=== PATIENT | female | born 1965 | race Caucasian/White ===

== ENCOUNTER 2016-04-15 | Emergency (ER) | payer MEDICAID | END 2016-04-15 13:30 | disposition left against medical advice (07) | DX: Z53.21 Procedure and treatment not carried out due to patient leaving prior to being seen by health care provider (principal) ==

== ENCOUNTER 2016-04-18 | Emergency (ER) | payer MEDICAID | END 2016-04-18 21:40 | disposition home or self-care (01) | CPT/HCPCS: 30901; 30905; 99282; 99283; A9270 ==

== ENCOUNTER 2016-04-18 14:44 | Emergency (ER) | payer MEDICAID ==
[2016-04-18] MEDS ORDERED: OXYMETAZOLINE NASAL SPRAY NAS ONE (14:54)
== END 2016-04-18 16:21 | disposition home or self-care (01) ==
DX: R04.0 Epistaxis (principal); I10 Essential (primary) hypertension; J98.8 Other specified respiratory disorders; J44.9 Chronic obstructive pulmonary disease, unspecified; F17.200 Nicotine dependence, unspecified, uncomplicated

== ENCOUNTER 2016-04-20 09:31 | Emergency (ER) | payer MEDICAID ==
[2016-04-20] MEDS ORDERED: OXYMETAZOLINE NASAL SPRAY NAS STA (10:21)
[2016-04-20] MEDS ORDERED: OXYMETAZOLINE NASAL SPRAY NAS ONE (10:22)
== END 2016-04-20 10:41 | disposition home or self-care (01) ==
DX: R04.0 Epistaxis (principal); I10 Essential (primary) hypertension; J44.9 Chronic obstructive pulmonary disease, unspecified; F17.200 Nicotine dependence, unspecified, uncomplicated
CPT/HCPCS: 99282; 99283; A9270

== ENCOUNTER 2019-10-08 17:08 | Outpatient (CLI) | payer MEDICAID | END 2019-10-08 17:09 | disposition short-term general hospital (02) | LOC: EMS 17:08 | PROVIDERS: ATTEND Surgery | DX: M54.9 Dorsalgia, unspecified (principal); R07.9 Chest pain, unspecified | CPT/HCPCS: A0425; A0427 ==

== ENCOUNTER 2021-04-12 01:30 | Outpatient (CLI) | payer MEDICAID | END 2021-04-12 01:31 | disposition EMS.NT | LOC: EMS 01:30 | DX: R11.10 Vomiting, unspecified (principal); S80.861A Insect bite (nonvenomous), right lower leg, initial encounter; W57.XXXA Bitten or stung by nonvenomous insect and other nonvenomous arthropods, initial encounter ==

== ENCOUNTER 2022-01-21 13:47 | Outpatient (CLI) | payer MEDICAID | END 2022-01-21 23:59 | disposition short-term general hospital (02) | LOC: EMS 13:47 | DX: R11.10 Vomiting, unspecified (principal); R19.5 Other fecal abnormalities; R10.817 Generalized abdominal tenderness; R00.0 Tachycardia, unspecified | CPT/HCPCS: A0425; A0427; A0999 ==

== ENCOUNTER 2022-02-07 16:32 | Outpatient (CLI) | payer MEDICAID | END 2022-02-07 23:59 | disposition critical access hospital (66) | LOC: EMS 16:32 | DX: R06.02 Shortness of breath (principal); R09.02 Hypoxemia; I48.91 Unspecified atrial fibrillation | CPT/HCPCS: A0425; A0427; A0999 ==

== ENCOUNTER 2022-02-07 17:03 | Inpatient (IN) | payer MEDICAID ==
--- OUTSIDE RECORDS SUMMARY | 2022-02-07 17:17 | EXTERNAL MEDICAL SUMMARY RPT | Continuity of Care Document ---
:1965 Author Organization [facility] Address [address] [place] [address] Phone Care Team Providers Name Role Phone hCung Mcdonald Unavailable Unavailable Allergies and Intolerances date description facility type (no date) grass pollen [facility] (unknown) (no date) [facility]ender [facility]andula angustifolia[facility] (no date) mometasone furoate [facility] (unknown) Encounters No information. Functional Status No information. Immunizations No information. Medications date description facility [id number] Albuterol Sulfate [facility] Problems No information. Procedures No information. Results/Labs test date author facility value unit interpret ation Result panel 1 (unknown) (no (unknown) (unknown) (no value) (units (unk nown) date) unknown) (unknown) (no (unknown) (unknown) 01/02/22 (units (unkno wn) date) unknown) (unknown) (no (unknown) (unknown) [id number] (units (unkno wn) date) unknown) (unknown) (no (unknown) (unknown) 56 yo female (units (u nknown) date) presents today unknown) c/o bladder issues. Patient states that when she (unknown) (no (unknown) (unknown) Abdominal pain (units (unknown) date) unknown) (unknown) (no (unknown) (unknown) Age/Sex: 56 / F (units (unknown) date) Date of Service: unknown) (unknown) (no (unknown) (unknown) Allergic (units (unkno wn) date) dermatitis of unknown) eyelids of both eyes (unknown) (no (unknown) (unknown) Allergies (units (unkn own) date) unknown) (unknown) (no (unknown) (unknown) [place], [place] (units ( unknown) date) [id number] unknown) (unknown) (no (unknown) (unknown) Arthritis (units (unkn own) date) (Unknown) unknown) (unknown) (no (unknown) (unknown) Asthma (Unknown) (units (unknown) date) unknown) (unknown) (no (unknown) (unknown) Asthma (units (unkno wn) date) unknown) (unknown) (no (unknown) (unknown) Attending Dr: (units ( unknown) date) Chung Mcdonald unknown) D.O. (unknown) (no (unknown) (unknown) COPD (chronic (units ( unknown) date) obstructive unknown) pulmonary disease) (unknown) (no (unknown) (unknown) Carpal tunnel (units ( unknown) date) syndrome (-2017) unknown) (unknown) (no (unknown) (unknown) [facility] (units ( unknown) date) (chronic) unknown) (unknown) (no (unknown) (unknown) : 1965 (units (unknown) date) Acct:[id number] unknown) (unknown) (no (unknown) (unknown) Dept at (units (unkno wn) date) . unknown) (unknown) (no (unknown) (unknown) Documented By: (units (unknown) date) Chung Mcdonald unknown) D.O. 01/02/22 1322 (unknown) (no (unknown) (unknown) Draft (units (unkno wn) date) unknown) (unknown) (no (unknown) (unknown) Eczema (units (unkno wn) date) unknown) (unknown) (no (unknown) (unknown) Family History (units (unknown) date) (Reviewed unknown) 11/15/20 @ 11:14 by Fernando Steve DO) (unknown) (no (unknown) (unknown) Family Practice (units (unknown) date) Office Visit unknown) (unknown) (no (unknown) (unknown) [facility] ([facility] unknown) (unknown) (no (unknown) (unknown) History of (units (unk nown) date) hysterectomy for unknown) cancer (unknown) (no (unknown) (unknown) Impetigo (units (unkno wn) date) unknown) (unknown) (no (unknown) (unknown) Intake Note: (units (u nknown) date) unknown) (unknown) (no (unknown) (unknown) Intake performed (units (unknown) date) by: Christa Castaneda unknown) L (unknown) (no (unknown) (unknown) Intake (units (unkno wn) date) unknown) (unknown) (no (unknown) (unknown) Intake- Clincial (units (unknown) date) Staff unknown) (unknown) (no (unknown) (unknown) Last Menstural (units (unknown) date) Cycle + Details unknown) (unknown) (no (unknown) (unknown) Loc: [facility] (units (unkno wn) date) unknown) (unknown) (no (unknown) (unknown) Medical History (units (unknown) date) (Updated 06/09/21 unknown) @ 00:01 by ) (unknown) (no (unknown) (unknown) Morbid obesity (units (unknown) date) due to excess unknown) calories (unknown) (no (unknown) (unknown) Mother (units (unknown) date) CVA (cerebral unknown) vascular accident) (unknown) (no (unknown) (unknown) Other Menstrual (units (unknown) date) Period: unknown) Postmenopausal (unknown) (no (unknown) (unknown) PFSH (units (unkno wn) date) unknown) (unknown) (no (unknown) (unknown) Patient: (units (unkno wn) date) Rosalba Pabon unknown) MR#: [id number] (unknown) (no (unknown) (unknown) Pulmonary (units (unkn own) date) hypertension unknown) (unknown) (no (unknown) (unknown) Reason For Visit (units (unknown) date) unknown) (unknown) (no (unknown) (unknown) Right-sided low (units (unknown) date) back pain with unknown) sciatica (unknown) (no (unknown) (unknown) Signed By: (units (unk nown) date) unknown) (unknown) (no (unknown) (unknown) Smoking Status: (units (unknown) date) Current every day unknown) smoker (unknown) (no (unknown) (unknown) Staph skin (units (unk nown) date) infection unknown) (unknown) (no (unknown) (unknown) Surgical History (units (unknown) date) (Reviewed unknown) 11/15/20 @ 11:14 by Fernando Steve DO) (unknown) (no (unknown) (unknown) Tachycardia (units (un known) date) unknown) (unknown) (no (unknown) (unknown) This note may (units ( unknown) date) have been all or unknown) partially generated using voice recognition (unknown) (no (unknown) (unknown) Tobacco + (units (unkn own) date) Substance Use unknown) (unknown) (no (unknown) (unknown) Tobacco Status (units (unknown) date) unknown) (unknown) (no (unknown) (unknown) Visit Reasons: (units (unknown) date) discuss bladder unknown) issues 09 (unknown) (no (unknown) (unknown) alcohol intake: (units (unknown) date) current unknown) (unknown) (no (unknown) (unknown) grass pollen (units (u nknown) date) Allergy (Verified unknown) 03/03/21 10:50) (unknown) (no (unknown) (unknown) have occurred. (units (unknown) date) If there are any unknown) questions, please contact the Medical Records (unknown) (no (unknown) (unknown) lavender (units (unkno wn) date) (Lavandula unknown) angustifolia) Allergy (Verified 03/03/21 10:50) (unknown) (no (unknown) (unknown) may occur. (units (unk nown) date) Occasional unknown) wrong-word or 'sound-alike' substitutions may have (unknown) (no (unknown) (unknown) mometasone (units (unk nown) date) furoate [From unknown) NASONEX] Allergy (Unknown, Verified 03/03/21 10:50) (unknown) (no (unknown) (unknown) needs to urine (units (unknown) date) it is immediate. unknown) Also patient c/o restless leg syndrome that (unknown) (no (unknown) (unknown) occurred due to (units (unknown) date) the inherent unknown) limitations of voice recognition software. Please (unknown) (no (unknown) (unknown) pine tanya Allergy (units (unknown) date) (Severe, Uncoded unknown) 03/03/21 10:50) (unknown) (no (unknown) (unknown) read the note (units ( unknown) date) carefully and unknown) recognize, using context, where these substitutions (unknown) (no (unknown) (unknown) severe sinus (units (u nknown) date) congestion unknown) (unknown) (no (unknown) (unknown) sinus swelling, (units (unknown) date) trouble breathing unknown) (unknown) (no (unknown) (unknown) software. 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 unknown) (unknown) (no (unknown) (unknown) throat closes, (units (unknown) date) cannot breathe unknown) Result panel 2 (unknown) (no (unknown) (unknown) (no value) (units (unk nown) date) unknown) (unknown) (no (unknown) (unknown) #20 tabs 05/25/21 (units (unknown) date) [Rx Confirmed unknown) 01/02/22] (unknown) (no (unknown) (unknown) (1) Anemia: (units (un known) date) unknown) (unknown) (no (unknown) (unknown) (2) COPD (chronic (units (unknown) date) obstructive unknown) pulmonary disease): (unknown) (no (unknown) (unknown) (3) HTN (units (unkno wn) date) (hypertension): unknown) (unknown) (no (unknown) (unknown) (4) Incontinence: (units (unknown) date) unknown) (unknown) (no (unknown) (unknown) (5) Encounter for (units (unknown) date) smoking cessation unknown) counseling: (unknown) (no (unknown) (unknown) (6) Chronic (units (un known) date) atrial unknown) fibrillation: (unknown) (no (unknown) (unknown) (7) Restless leg (units (unknown) date) syndrome: unknown) (unknown) (no (unknown) (unknown) (primary) (units (unkn own) date) hypertension, unknown) I48.20 - Chronic atrial fibrillation, unspecified, J42 (unknown) (no (unknown) (unknown) - Tobacco abuse (units (unknown) date) counseling unknown) (unknown) (no (unknown) (unknown) 01/02/22 (units (unkno wn) date) unknown) (unknown) (no (unknown) (unknown) 01/02/22] (units (unkn own) date) unknown) (unknown) (no (unknown) (unknown) 03/03/21 [Rx (units (u nknown) date) Confirmed unknown) 01/02/22] (unknown) (no (unknown) (unknown) 13:28 (units (unkno wn) date) unknown) (unknown) (no (unknown) (unknown) [id number] (units (unkno wn) date) unknown) (unknown) (no (unknown) (unknown) 56 yo female (units (u nknown) date) presents today c/o unknown) bladder issues. Patient states that when she (unknown) (no (unknown) (unknown) 56-year-old (units (unk nown) date) morbidly obese unknown) female smoker with establish COPD presents the clinic (unknown) (no (unknown) (unknown) Abdomen-soft (units (u nknown) date) nontender, no HSM, unknown) no palpable masses rebound or guarding (unknown) (no (unknown) (unknown) Abdominal pain (units (unknown) date) unknown) (unknown) (no (unknown) (unknown) Age/Sex: 56 / F (units (unknown) date) Date of Service: unknown) (unknown) (no (unknown) (unknown) Allergic (units (unkno wn) date) dermatitis of unknown) eyelids of both eyes (unknown) (no (unknown) (unknown) Allergies (units (unkn own) date) unknown) (unknown) (no (unknown) (unknown) [place], [place] (units ( unknown) date) [id number] unknown) (unknown) (no (unknown) (unknown) Anemia type: (units (u nknown) date) unspecified type unknown) Qualified Code(s): D64.9 - Anemia, (unknown) (no (unknown) (unknown) Anemia (units (unkno wn) date) unknown) (unknown) (no (unknown) (unknown) Arthritis (units (unkn own) date) (Unknown) unknown) (unknown) (no (unknown) (unknown) Assessment + Plan (units (unknown) date) unknown) (unknown) (no (unknown) (unknown) Assessment and (units (unknown) date) Plan: unknown) (unknown) (no (unknown) (unknown) Asthma (Unknown) (units (unknown) date) unknown) (unknown) (no (unknown) (unknown) Asthma (units (unkno wn) date) unknown) (unknown) (no (unknown) (unknown) Attending Dr: Chung (units (unknown) date) Cj Mcdonald D.OKristi unknown) (unknown) (no (unknown) (unknown) B12 and iron (units (u nknown) date) stores concerning unknown) for and intestinal bleed will recheck for any (unknown) (no (unknown) (unknown) BMI 43.4 (units (unkno wn) date) unknown) (unknown) (no (unknown) (unknown) BP 129/76 (units (unkn own) date) unknown) (unknown) (no (unknown) (unknown) Blood Pressure (units (unknown) date) Location Lt radial unknown) (unknown) (no (unknown) (unknown) COPD (chronic (units ( unknown) date) obstructive unknown) pulmonary disease) (unknown) (no (unknown) (unknown) COPD type: (units (unk nown) date) chronic bronchitis unknown) Chronic bronchitis type: unspecified (unknown) (no (unknown) (unknown) Carpal tunnel (units ( unknown) date) syndrome (-2017) unknown) (unknown) (no (unknown) (unknown) [place] smoking (units (unknown) date) cessation unknown) counseling was under gone today. Risks and benefits (unknown) (no (unknown) (unknown) Chest-heart (units (unk nown) date) regular rate and unknown) rhythm lungs clear to auscultation no wheezes rales (unknown) (no (unknown) (unknown) Chief Complaint (units (unknown) date) unknown) (unknown) (no (unknown) (unknown) Chief Complaint: (units (unknown) date) Follow-up chronic unknown) medical conditions (unknown) (no (unknown) (unknown) Chronic atrial (units (unknown) date) fibrillation unknown) (unknown) (no (unknown) (unknown) Confirmed (units (unkn own) date) 01/02/22] unknown) (unknown) (no (unknown) (unknown) Cor pul[facility] (units ( unknown) date) (chronic) unknown) (unknown) (no (unknown) (unknown) : 1965 (units (unknown) date) Acct:[id number] unknown) (unknown) (no (unknown) (unknown) Dept at (units (unkno wn) date) . unknown) (unknown) (no (unknown) (unknown) Details: (units (unkno wn) date) unknown) (unknown) (no (unknown) (unknown) Documented By: (units (unknown) date) Chung Mcdonald unknown) D.O. 01/02/22 1322 (unknown) (no (unknown) (unknown) Draft (units (unkno wn) date) unknown) (unknown) (no (unknown) (unknown) Eczema (units (unkno wn) date) unknown) (unknown) (no (unknown) (unknown) Essential (units (unkn own) date) (primary) unknown) hypertension (unknown) (no (unknown) (unknown) Essential (units (unkn own) date) (primary) unknown) hypertension, I48.20 - Chronic atrial fibrillation, (unknown) (no (unknown) (unknown) Essential (units (unkn own) date) (primary) unknown) hypertension, R32 - Unspecified urinary incontinence, Z71.6 (unknown) (no (unknown) (unknown) Exam Narrative (units (unknown) date) unknown) (unknown) (no (unknown) (unknown) Exam Narrative: (units (unknown) date) unknown) (unknown) (no (unknown) (unknown) Exam (units (unkno wn) date) unknown) (unknown) (no (unknown) (unknown) Family History (units (unknown) date) (Reviewed 01/02/22 unknown) @ 14:15 by Chung Mcdonald DO) (unknown) (no (unknown) (unknown) Family Practice (units (unknown) date) Office Visit unknown) (unknown) (no (unknown) (unknown) [facility] ([facility] unknown) (unknown) (no (unknown) (unknown) General physical (units (unknown) date) examination, unknown) physical examination (unknown) (no (unknown) (unknown) HPI (units (unkno wn) date) unknown) (unknown) (no (unknown) (unknown) HandiHaler) 1 cap (units (unknown) date) inhalation DAILY unknown) #90 inhalations 10/28/20 [Rx Confirmed (unknown) (no (unknown) (unknown) Head-normocephali (units (unknown) date) c atraumatic, eyes unknown) PERRLA EOMI, (unknown) (no (unknown) (unknown) Height 5 ft 8 in (units (unknown) date) unknown) (unknown) (no (unknown) (unknown) History of (units (unk nown) date) hysterectomy for unknown) cancer (unknown) (no (unknown) (unknown) Hypertension (units (u nknown) date) type: primary unknown) hypertension Qualified Code(s): I10 (unknown) (no (unknown) (unknown) Impetigo (units (unkno wn) date) unknown) (unknown) (no (unknown) (unknown) Incontinence (units (u nknown) date) type: urinary unknown) Urinary Incontinence type: stress (unknown) (no (unknown) (unknown) Incontinence (units (u nknown) date) unknown) (unknown) (no (unknown) (unknown) Intake Note: (units (u nknown) date) unknown) (unknown) (no (unknown) (unknown) Intake performed (units (unknown) date) by: Christa Castaneda unknown) (unknown) (no (unknown) (unknown) Intake (units (unkno wn) date) unknown) (unknown) (no (unknown) (unknown) Intake- Clincial (units (unknown) date) Staff unknown) (unknown) (no (unknown) (unknown) Iron Profile (w/ (units (unknown) date) % Saturation) unknown) Today D64.9 - Anemia, unspecified, I10 (unknown) (no (unknown) (unknown) Last Menstural (units (unknown) date) Cycle + Details unknown) (unknown) (no (unknown) (unknown) Loc: [facility] (units (unkno wn) date) unknown) (unknown) (no (unknown) (unknown) Medical History (units (unknown) date) (Reviewed 01/02/22 unknown) @ 14:15 by Chung Mcdonald DO) (unknown) (no (unknown) (unknown) Medications (units (un known) date) unknown) (unknown) (no (unknown) (unknown) Morbid obesity (units (unknown) date) due to excess unknown) calories (unknown) (no (unknown) (unknown) Mother (units (unknown) date) CVA (cerebral unknown) vascular accident) (unknown) (no (unknown) (unknown) Neck-supple no (units (unknown) date) thyromegaly, JVD unknown) or lymphadenopathy (unknown) (no (unknown) (unknown) Obese appearing (units (unknown) date) middle-aged female unknown) adult with above complaints, contributed to (unknown) (no (unknown) (unknown) Occult Blood (units (un known) date) Screen Today D64.9 unknown) - Anemia, unspecified, I10 - Essential (primary) (unknown) (no (unknown) (unknown) Orders (units (unkno wn) date) unknown) (unknown) (no (unknown) (unknown) Orders: (units (unkno wn) date) unknown) (unknown) (no (unknown) (unknown) Other Menstrual (units (unknown) date) Period: unknown) Postmenopausal (unknown) (no (unknown) (unknown) Oxygen Delivery (units (unknown) date) Method room air unknown) (unknown) (no (unknown) (unknown) PFSH (units (unkno wn) date) unknown) (unknown) (no (unknown) (unknown) Patient's blood (units (unknown) date) pressure was unknown) normal today with her recent history will back off (unknown) (no (unknown) (unknown) Patient: (units (unkno wn) date) Rosalba Pabon MR#: unknown) [id number] (unknown) (no (unknown) (unknown) Position Sitting (units (unknown) date) unknown) (unknown) (no (unknown) (unknown) Pulmonary (units (unkn own) date) hypertension unknown) (unknown) (no (unknown) (unknown) Pulse 89 (units (unkno wn) date) unknown) (unknown) (no (unknown) (unknown) Pulse Oximetry (units (unknown) date) (%) 94 unknown) (unknown) (no (unknown) (unknown) Pulse Source (units (u nknown) date) Monitor unknown) (unknown) (no (unknown) (unknown) Qualified (units (unkn own) date) Code(s): J42 - unknown) Unspecified chronic bronchitis (unknown) (no (unknown) (unknown) Qualifiers: (units (un known) date) unknown) (unknown) (no (unknown) (unknown) ROS Narrative (units ( unknown) date) unknown) (unknown) (no (unknown) (unknown) ROS Narrative: (units (unknown) date) unknown) (unknown) (no (unknown) (unknown) ROS as per HPI (units (unknown) date) patient denies any unknown) headache or chest pain. She does have (unknown) (no (unknown) (unknown) ROS (units (unkno wn) date) unknown) (unknown) (no (unknown) (unknown) Reason For Visit (units (unknown) date) unknown) (unknown) (no (unknown) (unknown) Restless leg (units (u nknown) date) syndrome unknown) (unknown) (no (unknown) (unknown) Reticulocyte (units (u nknown) date) Count, Percent unknown) Today D64.9 - Anemia, unspecified, I10 - Essential (unknown) (no (unknown) (unknown) Right-sided low (units (unknown) date) back pain with unknown) sciatica (unknown) (no (unknown) (unknown) Signed By: (units (unk nown) date) unknown) (unknown) (no (unknown) (unknown) Smoking Status: (units (unknown) date) Current every day unknown) smoker (unknown) (no (unknown) (unknown) Staph skin (units (unk nown) date) infection unknown) (unknown) (no (unknown) (unknown) Status: Acute (units ( unknown) date) unknown) (unknown) (no (unknown) (unknown) Surgical History (units (unknown) date) (Reviewed 01/02/22 unknown) @ 14:15 by Chung Mcdonald DO) (unknown) (no (unknown) (unknown) Tachycardia (units (un known) date) unknown) (unknown) (no (unknown) (unknown) The patient has (units (unknown) date) advanced COPD unknown) continues to smoke will initiate a course of (unknown) (no (unknown) (unknown) The patient will (units (unknown) date) be initiated on a unknown) course of Mirapex offer short term (unknown) (no (unknown) (unknown) The patient will (units (unknown) date) initiate Detrol 2 unknown) mg per day and will drain her bladder (unknown) (no (unknown) (unknown) This note may (units ( unknown) date) have been all or unknown) partially generated using voice recognition (unknown) (no (unknown) (unknown) Tobacco + (units (unkn own) date) Substance Use unknown) (unknown) (no (unknown) (unknown) Tobacco Status (units (unknown) date) unknown) (unknown) (no (unknown) (unknown) Unclear etiology (units (unknown) date) her hematocrit unknown) last week was 31 will recheck today as well as (unknown) (no (unknown) (unknown) Unspecified (units (un known) date) chronic bronchitis unknown) (unknown) (no (unknown) (unknown) Urinalysis and (units (unknown) date) Microscopic Today unknown) G25.81 - Restless legs syndrome, I10 (unknown) (no (unknown) (unknown) Visit Reasons: (units (unknown) date) discuss bladder unknown) issues 09 (unknown) (no (unknown) (unknown) Vital signs are (units (unknown) date) reported, charted unknown) and reviewed with patient (unknown) (no (unknown) (unknown) Vitals (units (unkno wn) date) unknown) (unknown) (no (unknown) (unknown) Vitamin B12 Today (units (unknown) date) D64.9 - Anemia, unknown) unspecified, I10 - Essential (primary) (unknown) (no (unknown) (unknown) Weight 285 lb 8 (units (unknown) date) oz unknown) (unknown) (no (unknown) (unknown) albuterol sulfate (units (unknown) date) 90 mcg/actuation unknown) aerosol inhaler (Ventolin HFA) 1 puff (unknown) (no (unknown) (unknown) alcohol intake: (units (unknown) date) current unknown) (unknown) (no (unknown) (unknown) amlodipine 5 mg (units (unknown) date) tablet 5 mg PO unknown) DAILY 03/03/21 [History Confirmed 01/02/22] (unknown) (no (unknown) (unknown) amoxicillin 875 (units (unknown) date) mg-potassium unknown) clavulanate 125 mg tablet (Augmentin) 1 tab PO Q12H (unknown) (no (unknown) (unknown) atrial (units (unkno wn) date) fibrillation on unknown) anticoagulation probable sleep apnea and other general (unknown) (no (unknown) (unknown) attempts at (units (un known) date) stopping smoking unknown) that have failed and relapsed Station has occurred (unknown) (no (unknown) (unknown) back on fluids (units (unknown) date) after dinner unknown) (unknown) (no (unknown) (unknown) 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 She was (units (unknown) date) recently seen by unknown) her cloth tearer just last week and lab work (unknown) (no (unknown) (unknown) continue with her (units (unknown) date) current course of unknown) diuretic she will follow back up with her (unknown) (no (unknown) (unknown) continues to have (units (unknown) date) exertional fatigue unknown) presumptively a compound contributing (unknown) (no (unknown) (unknown) did show rather (units (unknown) date) profound anemia. unknown) In that instance her Xarelto was stopped she (unknown) (no (unknown) (unknown) does not have any (units (unknown) date) symptoms of melena unknown) or hematochezia no hematemesis. She (unknown) (no (unknown) (unknown) exacerbated by (units (unknown) date) exertion unknown) (unknown) (no (unknown) (unknown) exertional (units (unk nown) date) fatigue change in unknown) exercise capacity has a hard time walking in from (unknown) (no (unknown) (unknown) factors of her (units (unknown) date) COPD and unknown) well-established congestive heart failure. And (unknown) (no (unknown) (unknown) grass pollen (units (u nknown) date) Allergy (Verified unknown) 01/02/22 13:27) (unknown) (no (unknown) (unknown) had recently some (units (unknown) date) orthostatic unknown) symptoms and notes anemia on clinical lab work (unknown) (no (unknown) (unknown) have occurred. If (units (unknown) date) there are any unknown) questions, please contact the Medical Records (unknown) (no (unknown) (unknown) history and exam (units (unknown) date) unknown) (unknown) (no (unknown) (unknown) hypertension, (units ( unknown) date) I48.20 - Chronic unknown) atrial fibrillation, unspecified, J42 (unknown) (no (unknown) (unknown) if this helps (units ( unknown) date) with ATT muscle unknown) groups (unknown) (no (unknown) (unknown) incontinence (units (u nknown) date) Qualified Code(s): unknown) N39.3 - Stress incontinence (female) (male) (unknown) (no (unknown) (unknown) inhalation Q6H (units (unknown) date) PRN shortness of unknown) breath or wheezing #18 grams 11/14/21 [Rx (unknown) (no (unknown) (unknown) intervention in (units (unknown) date) reassess in 2 unknown) months she will continue to remain active to see (unknown) (no (unknown) (unknown) intervention (units (u nknown) date) pending those unknown) results including colonoscopy (unknown) (no (unknown) (unknown) is in sinus rhythm (units (unknown) date) on today's visit unknown) and her Xarelto will be re-initiated as full (unknown) (no (unknown) (unknown) lavender (units (unkno wn) date) (Lavandula unknown) angustifolia) Allergy (Verified 01/02/22 13:27) (unknown) (no (unknown) (unknown) look for any (units (u nknown) date) black tarry stools unknown) (unknown) (no (unknown) (unknown) lysis concerns (units (unknown) date) described to the unknown) patient will continue to follow and monitor and (unknown) (no (unknown) (unknown) may occur. (units (unk nown) date) Occasional unknown) wrong-word or 'sound-alike' substitutions may have (unknown) (no (unknown) (unknown) metoprolol (units (unk nown) date) succinate 50 mg unknown) tablet,extended release 24 hr 75 mg PO BID #180 tabs (unknown) (no (unknown) (unknown) modifications of (units (unknown) date) her medications unknown) have been performed she did show some issues (unknown) (no (unknown) (unknown) mometasone (units (unk nown) date) furoate [From unknown) NASONEX] Allergy (Unknown, Verified 01/02/22 13:27) (unknown) (no (unknown) (unknown) needs to urine it (units (unknown) date) is immediate. Also unknown) patient c/o restless leg syndrome that (unknown) (no (unknown) (unknown) occurred due to (units (unknown) date) the inherent unknown) limitations of voice recognition software. Please (unknown) (no (unknown) (unknown) of the medication (units (unknown) date) as well as unknown) benefits of smoking cessation were reviewed with (unknown) (no (unknown) (unknown) on today's visit (units (unknown) date) we discussed unknown) issues related to the benefits of smoking (unknown) (no (unknown) (unknown) or other clinical (units (unknown) date) symptoms of a unknown) peptic ulcer or GI bleed other than some fatigue (unknown) (no (unknown) (unknown) or rhonchi, good (units (unknown) date) peripheral pulses unknown) (unknown) (no (unknown) (unknown) pine tanya Allergy (units (unknown) date) (Severe, Uncoded unknown) 01/02/22 13:27) (unknown) (no (unknown) (unknown) read the note (units ( unknown) date) carefully and unknown) recognize, using context, where these substitutions (unknown) (no (unknown) (unknown) related to (units (unkn own) date) hypotension but unknown) she denies any abdominal discomfort postprandial pain (unknown) (no (unknown) (unknown) restless leg (units (u nknown) date) syndrome and unknown) incontinence with her new medical concerns chronic (unknown) (no (unknown) (unknown) severe sinus (units (u nknown) date) congestion unknown) (unknown) (no (unknown) (unknown) sinus swelling, (units (unknown) date) trouble breathing unknown) (unknown) (no (unknown) (unknown) software. 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 unknown) (unknown) (no (unknown) (unknown) the marking loss. (units (unknown) date) Does not complain unknown) of anginal like symptoms or PND. She has (unknown) (no (unknown) (unknown) the metoprolol to (units (unknown) date) 50 mg twice daily unknown) and use the amlodipine 5 mg twice daily will (unknown) (no (unknown) (unknown) the patient has (units (unknown) date) had a longstanding unknown) history of cigarette smoking and many (unknown) (no (unknown) (unknown) the patient (units (un known) date) unknown) (unknown) (no (unknown) (unknown) throat closes, (units (unknown) date) cannot breathe unknown) (unknown) (no (unknown) (unknown) tiotropium (units (unk nown) date) bromide 18 mcg unknown) capsule with inhalation device (Spiriva with (unknown) (no (unknown) (unknown) to follow-up in (units (unknown) date) regards to her unknown) underlying health history including new anemia (unknown) (no (unknown) (unknown) unspecified (units (un known) date) unknown) (unknown) (no (unknown) (unknown) unspecified, J42 (units (unknown) date) - Unspecified unknown) chronic bronchitis Result panel 3 (unknown) (no (unknown) (unknown) (no value) (units (unk nown) date) unknown) (unknown) (no (unknown) (unknown) #20 tabs 05/25/21 (units (unknown) date) [Rx Confirmed unknown) 01/02/22] (unknown) (no (unknown) (unknown) (1) Anemia: (units (un known) date) unknown) (unknown) (no (unknown) (unknown) (2) COPD (chronic (units (unknown) date) obstructive unknown) pulmonary disease): (unknown) (no (unknown) (unknown) (3) HTN (units (unkno wn) date) (hypertension): unknown) (unknown) (no (unknown) (unknown) (4) Incontinence: (units (unknown) date) unknown) (unknown) (no (unknown) (unknown) (5) Encounter for (units (unknown) date) smoking cessation unknown) counseling: (unknown) (no (unknown) (unknown) (6) Chronic (units (un known) date) atrial unknown) fibrillation: (unknown) (no (unknown) (unknown) (7) Restless leg (units (unknown) date) syndrome: unknown) (unknown) (no (unknown) (unknown) (primary) (units (unkn own) date) hypertension, unknown) I48.20 - Chronic atrial fibrillation, unspecified, J42 (unknown) (no (unknown) (unknown) - Tobacco abuse (units (unknown) date) counseling unknown) (unknown) (no (unknown) (unknown) 01/02/22 1422 (units ( unknown) date) unknown) (unknown) (no (unknown) (unknown) 01/02/22 [Rx (units (u nknown) date) Confirmed unknown) 01/02/22] (unknown) (no (unknown) (unknown) 01/02/22 (units (unkno wn) date) unknown) (unknown) (no (unknown) (unknown) 01/02/22] (units (unkn own) date) unknown) (unknown) (no (unknown) (unknown) 13:28 (units (unkno wn) date) unknown) (unknown) (no (unknown) (unknown) [id number] (units (unkno wn) date) unknown) (unknown) (no (unknown) (unknown) 56 yo female (units (u nknown) date) presents today c/o unknown) bladder issues. Patient states that when she (unknown) (no (unknown) (unknown) 56-year-old (units (unk nown) date) morbidly obese unknown) female smoker with establish COPD presents the clinic (unknown) (no (unknown) (unknown) Abdomen-soft (units (u nknown) date) nontender, no HSM, unknown) no palpable masses rebound or guarding (unknown) (no (unknown) (unknown) Abdominal pain (units (unknown) date) unknown) (unknown) (no (unknown) (unknown) Age/Sex: 56 / F (units (unknown) date) Date of Service: unknown) (unknown) (no (unknown) (unknown) Allergic (units (unkno wn) date) dermatitis of unknown) eyelids of both eyes (unknown) (no (unknown) (unknown) Allergies (units (unkn own) date) unknown) (unknown) (no (unknown) (unknown) [place], [place] (units ( unknown) date) [id number] unknown) (unknown) (no (unknown) (unknown) Anemia type: (units (u nknown) date) unspecified type unknown) Qualified Code(s): D64.9 - Anemia, (unknown) (no (unknown) (unknown) Anemia (units (unkno wn) date) unknown) (unknown) (no (unknown) (unknown) Arthritis (units (unkn own) date) (Unknown) unknown) (unknown) (no (unknown) (unknown) Assessment + Plan (units (unknown) date) unknown) (unknown) (no (unknown) (unknown) Assessment and (units (unknown) date) Plan: unknown) (unknown) (no (unknown) (unknown) Asthma (Unknown) (units (unknown) date) unknown) (unknown) (no (unknown) (unknown) Asthma (units (unkno wn) date) unknown) (unknown) (no (unknown) (unknown) Attending Dr: Chung (units (unknown) date) Cj SenOKristi unknown) (unknown) (no (unknown) (unknown) B12 and iron (units (u nknown) date) stores concerning unknown) for and intestinal bleed will recheck for any (unknown) (no (unknown) (unknown) BMI 43.4 (units (unkno wn) date) unknown) (unknown) (no (unknown) (unknown) BP 129/76 (units (unkn own) date) unknown) (unknown) (no (unknown) (unknown) Billing- (units (unkno wn) date) Smoking/Tobacco unknown) Cessation Counselin-10 min- [phone] (unknown) (no (unknown) (unknown) Blood Pressure (units (unknown) date) Location Lt radial unknown) (unknown) (no (unknown) (unknown) COPD (chronic (units ( unknown) date) obstructive unknown) pulmonary disease) (unknown) (no (unknown) (unknown) COPD type: (units (unk nown) date) chronic bronchitis unknown) Chronic bronchitis type: unspecified (unknown) (no (unknown) (unknown) Carpal tunnel (units ( unknown) date) syndrome (-2017) unknown) (unknown) (no (unknown) (unknown) Cessation (units (unkn own) date) techniques unknown) discussed and resources: [Yes] (unknown) (no (unknown) (unknown) Changed (units (unkno wn) date) unknown) (unknown) (no (unknown) (unknown) Chantix smoking (units (unknown) date) cessation unknown) counseling was under gone today. Risks and benefits (unknown) (no (unknown) (unknown) Chest-heart (units (unk nown) date) regular rate and unknown) rhythm lungs clear to auscultation no wheezes rales (unknown) (no (unknown) (unknown) Chief Complaint (units (unknown) date) unknown) (unknown) (no (unknown) (unknown) Chief Complaint: (units (unknown) date) Follow-up chronic unknown) medical conditions (unknown) (no (unknown) (unknown) Chronic atrial (units (unknown) date) fibrillation unknown) (unknown) (no (unknown) (unknown) Confirmed (units (unkn own) date) 01/02/22] unknown) (unknown) (no (unknown) (unknown) Cor pulmonale (units ( unknown) date) (chronic) unknown) (unknown) (no (unknown) (unknown) : 1965 (units (unknown) date) Acct:[id number] unknown) (unknown) (no (unknown) (unknown) Dept at (units (unkno wn) date) . unknown) (unknown) (no (unknown) (unknown) Details: (units (unkno wn) date) unknown) (unknown) (no (unknown) (unknown) Documented By: (units (unknown) date) Chung Mcdonald unknown) D.O. 01/02/22 1322 (unknown) (no (unknown) (unknown) Eczema (units (unkno wn) date) unknown) (unknown) (no (unknown) (unknown) Essential (units (unkn own) date) (primary) unknown) hypertension (unknown) (no (unknown) (unknown) Essential (units (unkn own) date) (primary) unknown) hypertension, I48.20 - Chronic atrial fibrillation, (unknown) (no (unknown) (unknown) Essential (units (unkn own) date) (primary) unknown) hypertension, R32 - Unspecified urinary incontinence, Z71.6 (unknown) (no (unknown) (unknown) Estimated quit (units (unknown) date) date and unknown unknown) TBA: [To be determined] (unknown) (no (unknown) (unknown) Exam Narrative (units (unknown) date) unknown) (unknown) (no (unknown) (unknown) Exam Narrative: (units (unknown) date) unknown) (unknown) (no (unknown) (unknown) Exam (units (unkno wn) date) unknown) (unknown) (no (unknown) (unknown) Family History (units (unknown) date) (Reviewed 01/02/22 unknown) @ 14:15 by Chung Mcdonald DO) (unknown) (no (unknown) (unknown) Family Practice (units (unknown) date) Office Visit unknown) (unknown) (no (unknown) (unknown) [facility]) (unknown) (no (unknown) (unknown) Follow up plan: (units (unknown) date) [2 months] unknown) (unknown) (no (unknown) (unknown) From amlodipine 5 (units (unknown) date) mg PO DAILY unknown) (unknown) (no (unknown) (unknown) From metoprolol (units (unknown) date) succinate ER 75 mg unknown) (1.5 x 50 mg) PO BID 180 tabs 1RF (unknown) (no (unknown) (unknown) General physical (units (unknown) date) examination, unknown) physical examination (unknown) (no (unknown) (unknown) HPI (units (unkno wn) date) unknown) (unknown) (no (unknown) (unknown) HandiHaler) 1 cap (units (unknown) date) inhalation DAILY unknown) #90 inhalations 10/28/20 [Rx Confirmed (unknown) (no (unknown) (unknown) Head-normocephali (units (unknown) date) c atraumatic, eyes unknown) PERRLA EOMI, (unknown) (no (unknown) (unknown) Height 5 ft 8 in (units (unknown) date) unknown) (unknown) (no (unknown) (unknown) History of (units (unk nown) date) hysterectomy for unknown) cancer (unknown) (no (unknown) (unknown) Hypertension (units (u nknown) date) type: primary unknown) hypertension Qualified Code(s): I10 (unknown) (no (unknown) (unknown) Impetigo (units (unkno wn) date) unknown) (unknown) (no (unknown) (unknown) Incontinence (units (u nknown) date) type: urinary unknown) Urinary Incontinence type: stress (unknown) (no (unknown) (unknown) Incontinence (units (u nknown) date) unknown) (unknown) (no (unknown) (unknown) Intake Note: (units (u nknown) date) unknown) (unknown) (no (unknown) (unknown) Intake performed (units (unknown) date) by: Christa Castaneda unknown) (unknown) (no (unknown) (unknown) Intake (units (unkno wn) date) unknown) (unknown) (no (unknown) (unknown) Intake- Clincial (units (unknown) date) Staff unknown) (unknown) (no (unknown) (unknown) Iron Profile (w/ (units (unknown) date) % Saturation) unknown) Today D64.9 - Anemia, unspecified, I10 (unknown) (no (unknown) (unknown) Last Menstural (units (unknown) date) Cycle + Details unknown) (unknown) (no (unknown) (unknown) Loc: [facility] (units (unkno wn) date) unknown) (unknown) (no (unknown) (unknown) Medical History (units (unknown) date) (Reviewed 01/02/22 unknown) @ 14:15 by Chung Mcdonald DO) (unknown) (no (unknown) (unknown) Medications (units (un known) date) unknown) (unknown) (no (unknown) (unknown) Medications: (units (u nknown) date) unknown) (unknown) (no (unknown) (unknown) Morbid obesity (units (unknown) date) due to excess unknown) calories (unknown) (no (unknown) (unknown) Mother (units (unknown) date) CVA (cerebral unknown) vascular accident) (unknown) (no (unknown) (unknown) Neck-supple no (units (unknown) date) thyromegaly, JVD unknown) or lymphadenopathy (unknown) (no (unknown) (unknown) New (units (unkno wn) date) unknown) (unknown) (no (unknown) (unknown) Obese appearing (units (unknown) date) middle-aged female unknown) adult with above complaints, contributed to (unknown) (no (unknown) (unknown) Occult Blood (units (un known) date) Screen Today D64.9 unknown) - Anemia, unspecified, I10 - Essential (primary) (unknown) (no (unknown) (unknown) Office Procedures (units (unknown) date) unknown) (unknown) (no (unknown) (unknown) Orders (units (unkno wn) date) unknown) (unknown) (no (unknown) (unknown) Orders: (units (unkno wn) date) unknown) (unknown) (no (unknown) (unknown) Other Menstrual (units (unknown) date) Period: unknown) Postmenopausal (unknown) (no (unknown) (unknown) Oxygen Delivery (units (unknown) date) Method room air unknown) (unknown) (no (unknown) (unknown) PFSH (units (unkno wn) date) unknown) (unknown) (no (unknown) (unknown) Patient's blood (units (unknown) date) pressure was unknown) normal today with her recent history will back off (unknown) (no (unknown) (unknown) Patient's desire (units (unknown) date) or need to quit unknown) smoking: [Medium] (unknown) (no (unknown) (unknown) Patient: (units (unkno wn) date) Rosalba Pabon MR#: unknown) [id number] (unknown) (no (unknown) (unknown) Position Sitting (units (unknown) date) unknown) (unknown) (no (unknown) (unknown) Procedure (units (unkn own) date) performed by: unknown) Chung Mcdonald (unknown) (no (unknown) (unknown) Pulmonary (units (unkn own) date) hypertension unknown) (unknown) (no (unknown) (unknown) Pulse 89 (units (unkno wn) date) unknown) (unknown) (no (unknown) (unknown) Pulse Oximetry (units (unknown) date) (%) 94 unknown) (unknown) (no (unknown) (unknown) Pulse Source (units (u nknown) date) Monitor unknown) (unknown) (no (unknown) (unknown) Qualified (units (unkn own) date) Code(s): J42 - unknown) Unspecified chronic bronchitis (unknown) (no (unknown) (unknown) Qualifiers: (units (un known) date) unknown) (unknown) (no (unknown) (unknown) Quit Status: has (units (unknown) date) quit before unknown) (unknown) (no (unknown) (unknown) ROS Narrative (units ( unknown) date) unknown) (unknown) (no (unknown) (unknown) ROS Narrative: (units (unknown) date) unknown) (unknown) (no (unknown) (unknown) ROS as per HPI (units (unknown) date) patient denies any unknown) headache or chest pain. She does have (unknown) (no (unknown) (unknown) ROS (units (unkno wn) date) unknown) (unknown) (no (unknown) (unknown) Reason For Visit (units (unknown) date) unknown) (unknown) (no (unknown) (unknown) Restless leg (units (u nknown) date) syndrome unknown) (unknown) (no (unknown) (unknown) Reticulocyte (units (u nknown) date) Count, Percent unknown) Today D64.9 - Anemia, unspecified, I10 - Essential (unknown) (no (unknown) (unknown) Right-sided low (units (unknown) date) back pain with unknown) sciatica (unknown) (no (unknown) (unknown) Signed By: (units (unk nown) date) <Electronically unknown) signed by Chung Mcdonald D.O.> (unknown) (no (unknown) (unknown) Signed (units (unkno wn) date) unknown) (unknown) (no (unknown) (unknown) Smoking Status: (units (unknown) date) Current every day unknown) smoker (unknown) (no (unknown) (unknown) Smoking/Tobacco (units (unknown) date) Cessation unknown) Counseling: (unknown) (no (unknown) (unknown) Staph skin (units (unk nown) date) infection unknown) (unknown) (no (unknown) (unknown) Status: Acute (units ( unknown) date) unknown) (unknown) (no (unknown) (unknown) Stop smoking (units (u nknown) date) aids: Chantix unknown) (unknown) (no (unknown) (unknown) Surgical History (units (unknown) date) (Reviewed 01/02/22 unknown) @ 14:15 by Chung Mcdonald DO) (unknown) (no (unknown) (unknown) Tachycardia (units (un known) date) unknown) (unknown) (no (unknown) (unknown) The patient has (units (unknown) date) advanced COPD unknown) continues to smoke will initiate a course of (unknown) (no (unknown) (unknown) The patient will (units (unknown) date) be initiated on a unknown) course of Mirapex offer short term (unknown) (no (unknown) (unknown) The patient will (units (unknown) date) initiate Detrol 2 unknown) mg per day and will drain her bladder (unknown) (no (unknown) (unknown) This note may (units ( unknown) date) have been all or unknown) partially generated using voice recognition (unknown) (no (unknown) (unknown) To amlodipine 5 (units (unknown) date) mg PO BID unknown) (unknown) (no (unknown) (unknown) To metoprolol (units ( unknown) date) succinate ER 50 mg unknown) PO BID 180 tabs 1RF (unknown) (no (unknown) (unknown) Tobacco + (units (unkn own) date) Substance Use unknown) (unknown) (no (unknown) (unknown) Tobacco Status (units (unknown) date) unknown) (unknown) (no (unknown) (unknown) Total time spent (units (unknown) date) face to face with unknown) patient in counseling: [10 minutes] (unknown) (no (unknown) (unknown) Unclear etiology (units (unknown) date) her hematocrit unknown) last week was 31 will recheck today as well as (unknown) (no (unknown) (unknown) Unspecified (units (un known) date) chronic bronchitis unknown) (unknown) (no (unknown) (unknown) Urinalysis and (units (unknown) date) Microscopic Today unknown) G25.81 - Restless legs syndrome, I10 (unknown) (no (unknown) (unknown) Visit Reasons: (units (unknown) date) discuss bladder unknown) issues 09 (unknown) (no (unknown) (unknown) Vital signs are (units (unknown) date) reported, charted unknown) and reviewed with patient (unknown) (no (unknown) (unknown) Vitals (units (unkno wn) date) unknown) (unknown) (no (unknown) (unknown) Vitamin B12 Today (units (unknown) date) D64.9 - Anemia, unknown) unspecified, I10 - Essential (primary) (unknown) (no (unknown) (unknown) Weight 285 lb 8 (units (unknown) date) oz unknown) (unknown) (no (unknown) (unknown) albuterol sulfate (units (unknown) date) 90 mcg/actuation unknown) aerosol inhaler (Ventolin HFA) 1 puff (unknown) (no (unknown) (unknown) alcohol intake: (units (unknown) date) current unknown) (unknown) (no (unknown) (unknown) amlodipine 5 mg (units (unknown) date) tablet 5 mg PO BID unknown) 01/02/22 [History Confirmed 01/02/22] (unknown) (no (unknown) (unknown) amoxicillin 875 (units (unknown) date) mg-potassium unknown) clavulanate 125 mg tablet (Augmentin) 1 tab PO Q12H (unknown) (no (unknown) (unknown) atrial (units (unkno wn) date) fibrillation on unknown) anticoagulation probable sleep apnea and other general (unknown) (no (unknown) (unknown) attempts at (units (un known) date) stopping smoking unknown) that have failed and relapsed Station has occurred (unknown) (no (unknown) (unknown) back on fluids (units (unknown) date) after dinner unknown) (unknown) (no (unknown) (unknown) caps 01/02/22 [Rx (units (unknown) date) Confirmed unknown) 01/02/22] (unknown) (no (unknown) (unknown) 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 She was (units (unknown) date) recently seen by unknown) her cloth tearer just last week and lab work (unknown) (no (unknown) (unknown) continue with her (units (unknown) date) current course of unknown) diuretic she will follow back up with her (unknown) (no (unknown) (unknown) continues to have (units (unknown) date) exertional fatigue unknown) presumptively a compound contributing (unknown) (no (unknown) (unknown) did show rather (units (unknown) date) profound anemia. unknown) In that instance her Xarelto was stopped she (unknown) (no (unknown) (unknown) does not have any (units (unknown) date) symptoms of melena unknown) or hematochezia no hematemesis. She (unknown) (no (unknown) (unknown) exacerbated by (units (unknown) date) exertion unknown) (unknown) (no (unknown) (unknown) exertional (units (unk nown) date) fatigue change in unknown) exercise capacity has a hard time walking in from (unknown) (no (unknown) (unknown) factors of her (units (unknown) date) COPD and unknown) well-established congestive heart failure. And (unknown) (no (unknown) (unknown) grass pollen (units (u nknown) date) Allergy (Verified unknown) 01/02/22 13:27) (unknown) (no (unknown) (unknown) had recently some (units (unknown) date) orthostatic unknown) symptoms and notes anemia on clinical lab work (unknown) (no (unknown) (unknown) have occurred. If (units (unknown) date) there are any unknown) questions, please contact the Medical Records (unknown) (no (unknown) (unknown) history and exam (units (unknown) date) unknown) (unknown) (no (unknown) (unknown) hypertension, (units ( unknown) date) I48.20 - Chronic unknown) atrial fibrillation, unspecified, J42 (unknown) (no (unknown) (unknown) if this helps (units ( unknown) date) with ATT muscle unknown) groups (unknown) (no (unknown) (unknown) incontinence (units (u nknown) date) Qualified Code(s): unknown) N39.3 - Stress incontinence (female) (male) (unknown) (no (unknown) (unknown) inhalation Q6H (units (unknown) date) PRN shortness of unknown) breath or wheezing #18 grams 11/14/21 [Rx (unknown) (no (unknown) (unknown) intervention in (units (unknown) date) reassess in 2 unknown) months she will continue to remain active to see (unknown) (no (unknown) (unknown) intervention (units (u nknown) date) pending those unknown) results including colonoscopy (unknown) (no (unknown) (unknown) is in sinus rhythm (units (unknown) date) on today's visit unknown) and her Xarelto will be re-initiated as full (unknown) (no (unknown) (unknown) lavender (units (unkno wn) date) (Lavandula unknown) angustifolia) Allergy (Verified 01/02/22 13:27) (unknown) (no (unknown) (unknown) look for any (units (u nknown) date) black tarry stools unknown) (unknown) (no (unknown) (unknown) lysis concerns (units (unknown) date) described to the unknown) patient will continue to follow and monitor and (unknown) (no (unknown) (unknown) may occur. (units (unk nown) date) Occasional unknown) wrong-word or 'sound-alike' substitutions may have (unknown) (no (unknown) (unknown) metoprolol (units (unk nown) date) succinate 50 mg unknown) tablet,extended release 24 hr 50 mg PO BID #180 tabs (unknown) (no (unknown) (unknown) modifications of (units (unknown) date) her medications unknown) have been performed she did show some issues (unknown) (no (unknown) (unknown) mometasone (units (unk nown) date) furoate [From unknown) NASONEX] Allergy (Unknown, Verified 01/02/22 13:27) (unknown) (no (unknown) (unknown) needs to urine it (units (unknown) date) is immediate. Also unknown) patient c/o restless leg syndrome that (unknown) (no (unknown) (unknown) occurred due to (units (unknown) date) the inherent unknown) limitations of voice recognition software. Please (unknown) (no (unknown) (unknown) of the medication (units (unknown) date) as well as unknown) benefits of smoking cessation were reviewed with (unknown) (no (unknown) (unknown) on today's visit (units (unknown) date) we discussed unknown) issues related to the benefits of smoking (unknown) (no (unknown) (unknown) or other clinical (units (unknown) date) symptoms of a unknown) peptic ulcer or GI bleed other than some fatigue (unknown) (no (unknown) (unknown) or rhonchi, good (units (unknown) date) peripheral pulses unknown) (unknown) (no (unknown) (unknown) pine tanya Allergy (units (unknown) date) (Severe, Uncoded unknown) 01/02/22 13:27) (unknown) (no (unknown) (unknown) pramipexole (units (un known) date) (Mirapex) 0.25 mg unknown) PO BEDTIME 90 tabs 1RF (unknown) (no (unknown) (unknown) pramipexole 0.25 (units (unknown) date) mg tablet unknown) (Mirapex) 0.25 mg PO BEDTIME #90 tabs 01/02/22 [Rx (unknown) (no (unknown) (unknown) read the note (units ( unknown) date) carefully and unknown) recognize, using context, where these substitutions (unknown) (no (unknown) (unknown) related to (units (unkn own) date) hypotension but unknown) she denies any abdominal discomfort postprandial pain (unknown) (no (unknown) (unknown) restless leg (units (u nknown) date) syndrome and unknown) incontinence with her new medical concerns chronic (unknown) (no (unknown) (unknown) severe sinus (units (u nknown) date) congestion unknown) (unknown) (no (unknown) (unknown) sinus swelling, (units (unknown) date) trouble breathing unknown) (unknown) (no (unknown) (unknown) software. 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 unknown) (unknown) (no (unknown) (unknown) the marking loss. (units (unknown) date) Does not complain unknown) of anginal like symptoms or PND. She has (unknown) (no (unknown) (unknown) the metoprolol to (units (unknown) date) 50 mg twice daily unknown) and use the amlodipine 5 mg twice daily will (unknown) (no (unknown) (unknown) the patient has (units (unknown) date) had a longstanding unknown) history of cigarette smoking and many (unknown) (no (unknown) (unknown) the patient (units (un known) date) unknown) (unknown) (no (unknown) (unknown) throat closes, (units (unknown) date) cannot breathe unknown) (unknown) (no (unknown) (unknown) tiotropium (units (unk nown) date) bromide 18 mcg unknown) capsule with inhalation device (Spiriva with (unknown) (no (unknown) (unknown) to follow-up in (units (unknown) date) regards to her unknown) underlying health history including new anemia (unknown) (no (unknown) (unknown) tolterodine 2 mg (units (unknown) date) capsule,extended unknown) release 24 hr (Detrol LA) 2 mg PO BEDTIME #90 (unknown) (no (unknown) (unknown) tolterodine ER (units (unknown) date) (Detrol LA) 2 mg unknown) PO BEDTIME 90 caps 1RF (unknown) (no (unknown) (unknown) unspecified (units (un known) date) unknown) (unknown) (no (unknown) (unknown) unspecified, J42 (units (unknown) date) - Unspecified unknown) chronic bronchitis Result panel 4 (unknown) (no date) (unknown) (unknown) (no value) (units (un known) unknown) (unknown) (no date) (unknown) (unknown) [id number] (units (unkn own) unknown) (unknown) (no date) (unknown) (unknown) 01/21/22 (units (unkn own) unknown) (unknown) (no date) (unknown) (unknown) [address] (units (unk nown) [address] unknown) (unknown) (no date) (unknown) (unknown) Accession (units (unk nown) Number: unknown) [id number] (unknown) (no date) (unknown) (unknown) Age/Sex: 56 / (units (unknown) F Date of unknown) Service: (unknown) (no date) (unknown) (unknown) [place], [place] (units (unknown) [id number] unknown) (unknown) (no date) (unknown) (unknown) Approved by: (units ( unknown) Augustus Aguirre M.D. unknown) on 01/21/2022 at 15:30 (unknown) (no date) (unknown) (unknown) Bones and (units (unk nown) chest wall: No unknown) suspicious bony lesions. Overlying soft tissues (unknown) (no date) (unknown) (unknown) [facility], XR CHEST 1V, 05/25/2021, 11:07. (unknown) (no date) (unknown) (unknown) : (units (unkn own) 1965 unknown) Acct:[id number] (unknown) (no date) (unknown) (unknown) Dictated by: (units ( unknown) Augustus Aguirre M.D. unknown) on 01/21/2022 at 15:30 (unknown) (no date) (unknown) (unknown) FINDINGS: (units (unk nown) unknown) (unknown) (no date) (unknown) (unknown) IMPRESSION: No (units (unknown) focal unknown) infiltrate, pleural effusion or pneumothorax. (unknown) (no date) (unknown) (unknown) INDICATIONS: (units ( unknown) Flu like unknown) symptoms (unknown) (no date) (unknown) (unknown) [facility] (unknown) (no date) (unknown) (unknown) Loc: ED (units (unkn own) unknown) (unknown) (no date) (unknown) (unknown) Lungs and (units (unk nown) pleura: Lungs unknown) are clear. No pleural effusions or pneumothorax. (unknown) (no date) (unknown) (unknown) Mediastinum: (units ( unknown) Mediastinal unknown) contours appear normal. Heart size is enlarged. (unknown) (no date) (unknown) (unknown) Ordering (units (unkn own) Provider: unknown) Lilian Armstrong D.O. (unknown) (no date) (unknown) (unknown) PROCEDURE: XR (units (unknown) CHEST 1V unknown) (unknown) (no date) (unknown) (unknown) Patient: (units (unkn own) Rosalba Pabon unknown) MR#: [id number] (unknown) (no date) (unknown) (unknown) Procedure: XR (units (unknown) chest 1V unknown) (unknown) (no date) (unknown) (unknown) Signed (units (unkn own) unknown) (unknown) (no date) (unknown) (unknown) Surgical (units (unkn own) changes and unknown) devices: None. (unknown) (no date) (unknown) (unknown) TECHNIQUE: One (units (unknown) view of the unknown) chest was acquired. (unknown) (no date) (unknown) (unknown) XRay Report (units (u nknown) unknown) (unknown) (no date) (unknown) (unknown) appear (units (unkn own) unknown) (unknown) (no date) (unknown) (unknown) unremarkable. (units (unknown) unknown) Result panel 5 (unknown) (no (unknown) (unknown) (no value) (units (unk nown) date) unknown) (unknown) (no (unknown) (unknown) #18 grams (units (unkn own) date) unknown) (unknown) (no (unknown) (unknown) (Augmentin) (units (un known) date) unknown) (unknown) (no (unknown) (unknown) (Mirapex) (units (unkn own) date) unknown) (unknown) (no (unknown) (unknown) 0.25 mg PO (units (unk nown) date) BEDTIME Qty: 90 unknown) 1RF (unknown) (no (unknown) (unknown) 1 applic topical (units (unknown) date) BEDTIME Qty: 25 unknown) 0RF (unknown) (no (unknown) (unknown) 1 cap inhalation (units (unknown) date) DAILY Qty: 90 1RF unknown) (unknown) (no (unknown) (unknown) 1 puff (units (unkno wn) date) INHALATION Q6H unknown) PRN (Reason: shortness of breath or wheezing) Qty: 18 (unknown) (no (unknown) (unknown) 1 tab PO Q12H (units ( unknown) date) Qty: 20 0RF unknown) (unknown) (no (unknown) (unknown) 01/21/22 14:53 (units (unknown) date) unknown) (unknown) (no (unknown) (unknown) 01/21/22 14:54 (units (unknown) date) unknown) (unknown) (no (unknown) (unknown) 2 mg PO BEDTIME (units (unknown) date) Qty: 90 1RF unknown) (unknown) (no (unknown) (unknown) 25 mg PO DAILY (units (unknown) date) unknown) (unknown) (no (unknown) (unknown) 5 mg PO BID (units (un known) date) unknown) (unknown) (no (unknown) (unknown) 50 mg PO BID (units (u nknown) date) Qty: 180 1RF unknown) (unknown) (no (unknown) (unknown) [id number] (units (unkno wn) date) unknown) (unknown) (no (unknown) (unknown) 5RF (units (unkno wn) date) unknown) (unknown) (no (unknown) (unknown) Abdominal pain (units (unknown) date) unknown) (unknown) (no (unknown) (unknown) Age/Sex: 56 / F (units (unknown) date) unknown) (unknown) (no (unknown) (unknown) Allergic (units (unkno wn) date) dermatitis of unknown) eyelids of both eyes (unknown) (no (unknown) (unknown) Allergies (units (unkn own) date) unknown) (unknown) (no (unknown) (unknown) Allergy/AdvReac (units (unknown) date) Type Severity unknown) Reaction Status Date / Time (unknown) (no (unknown) (unknown) Anemia (units (unkno wn) date) unknown) (unknown) (no (unknown) (unknown) Apply twice week (units (unknown) date) unknown) (unknown) (no (unknown) (unknown) Arthritis (units (unkn own) date) (Unknown) unknown) (unknown) (no (unknown) (unknown) Asthma (Unknown) (units (unknown) date) unknown) (unknown) (no (unknown) (unknown) Asthma (units (unkno wn) date) unknown) (unknown) (no (unknown) (unknown) BNP [NT-proBNP (units (unknown) date) (BNP-Adult 18+)] unknown) Stat (unknown) (no (unknown) (unknown) COPD (chronic (units ( unknown) date) obstructive unknown) pulmonary disease) (unknown) (no (unknown) (unknown) COVID19 -Nasal (units (unknown) date) RAPID/Pre-Proc unknown) Stat (unknown) (no (unknown) (unknown) Carpal tunnel (units ( unknown) date) syndrome (-2017) unknown) (unknown) (no (unknown) (unknown) Chronic atrial (units (unknown) date) fibrillation unknown) (unknown) (no (unknown) (unknown) Complete Blood (units (unknown) date) Count AUTO DIFF unknown) Stat (unknown) (no (unknown) (unknown) Comprehensive (units ( unknown) date) Metabolic Panel unknown) Stat (unknown) (no (unknown) (unknown) Cor pulmonale (units ( unknown) date) (chronic) unknown) (unknown) (no (unknown) (unknown) Course (units (unkno wn) date) unknown) (unknown) (no (unknown) (unknown) : 1965 (units (unknown) date) Acct:[id number] unknown) (unknown) (no (unknown) (unknown) Date of Service: (units (unknown) date) 01/21/22 unknown) (unknown) (no (unknown) (unknown) Departure (units (unkn own) date) unknown) (unknown) (no (unknown) (unknown) Discharge Plan (units (unknown) date) unknown) (unknown) (no (unknown) (unknown) ED Orders (units (unkn own) date) unknown) (unknown) (no (unknown) (unknown) EKG-12 Lead Stat (units (unknown) date) unknown) (unknown) (no (unknown) (unknown) ER Physician: (units ( unknown) date) Lilian Armstrong unknown) D.O. (unknown) (no (unknown) (unknown) Eczema (units (unkno wn) date) unknown) (unknown) (no (unknown) (unknown) Emergency Report (units (unknown) date) unknown) (unknown) (no (unknown) (unknown) Family History (units (unknown) date) (Reviewed unknown) 01/02/22 @ 14:15 by Chung Mcdonald DO) (unknown) (no (unknown) (unknown) General (units (unkno wn) date) unknown) (unknown) (no (unknown) (unknown) HPI - GI Bleed (units (unknown) date) unknown) (unknown) (no (unknown) (unknown) History of (units (unk nown) date) hysterectomy for unknown) cancer (unknown) (no (unknown) (unknown) Home Medications (units (unknown) date) unknown) (unknown) (no (unknown) (unknown) Impetigo (units (unkno wn) date) unknown) (unknown) (no (unknown) (unknown) Incontinence (units (u nknown) date) unknown) (unknown) (no (unknown) (unknown) [facility] (units (unknown) date) [address] [place] [address] Street unknown) [place] [address] (unknown) (no (unknown) (unknown) Medical History (units (unknown) date) (Reviewed unknown) 01/02/22 @ 14:15 by Chung Mcdonald DO) (unknown) (no (unknown) (unknown) Medication (units (unk nown) date) Instructions unknown) Recorded Confirmed (unknown) (no (unknown) (unknown) Medication (units (unk nown) date) Instructions unknown) Recorded (unknown) (no (unknown) (unknown) Morbid obesity (units (unknown) date) due to excess unknown) calories (unknown) (no (unknown) (unknown) Mother (units (unknown) date) CVA (cerebral unknown) vascular accident) (unknown) (no (unknown) (unknown) No Action (units (unkn own) date) unknown) (unknown) (no (unknown) (unknown) Ordered: (units (unkno wn) date) unknown) (unknown) (no (unknown) (unknown) Orders (units (unkno wn) date) unknown) (unknown) (no (unknown) (unknown) Partial (units (unkno wn) date) Thromboplastin unknown) Time Stat (unknown) (no (unknown) (unknown) Patient History (units (unknown) date) unknown) (unknown) (no (unknown) (unknown) Patient: (units (unkno wn) date) Rosalba Pabon unknown) MR#: [id number] (unknown) (no (unknown) (unknown) Chung Mcdonald, (units (unknown) date) DO [Primary Care unknown) Provider] (unknown) (no (unknown) (unknown) Prescriptions: (units (unknown) date) unknown) (unknown) (no (unknown) (unknown) Previous Rx's (units ( unknown) date) unknown) (unknown) (no (unknown) (unknown) Prothrombin Time (units (unknown) date) INR Stat unknown) (unknown) (no (unknown) (unknown) Pulmonary (units (unkn own) date) hypertension unknown) (unknown) (no (unknown) (unknown) Referrals: (units (unk nown) date) unknown) (unknown) (no (unknown) (unknown) Related Data (units (u nknown) date) unknown) (unknown) (no (unknown) (unknown) Restless leg (units (u nknown) date) syndrome unknown) (unknown) (no (unknown) (unknown) Right-sided low (units (unknown) date) back pain with unknown) sciatica (unknown) (no (unknown) (unknown) Rx Instructions: (units (unknown) date) unknown) (unknown) (no (unknown) (unknown) Signed By: (units (unk nown) date) unknown) (unknown) (no (unknown) (unknown) Smoking Status: (units (unknown) date) Current every day unknown) smoker (unknown) (no (unknown) (unknown) Social History (units (unknown) date) (Reviewed unknown) 11/15/20 @ 11:14 by Fernando Steve DO) (unknown) (no (unknown) (unknown) Spiriva with (units (u nknown) date) HandiHaler 18 mcg unknown) capsule, w/inhalation device (unknown) (no (unknown) (unknown) Staph skin (units (unk nown) date) infection unknown) (unknown) (no (unknown) (unknown) Stated (units (unkno wn) date) complaint: Coffee unknown) ground emesis, CHF, +thinners (unknown) (no (unknown) (unknown) Substance Use (units ( unknown) date) Type: does not unknown) use (unknown) (no (unknown) (unknown) Surgical History (units (unknown) date) (Reviewed unknown) 01/02/22 @ 14:15 by Chung Mcdonald DO) (unknown) (no (unknown) (unknown) Tachycardia (units (un known) date) unknown) (unknown) (no (unknown) (unknown) Time Seen by (units (u nknown) date) Provider: unknown) 01/21/22 14:54 (unknown) (no (unknown) (unknown) Troponin + CK (units ( unknown) date) Cardiac Panel unknown) Stat (unknown) (no (unknown) (unknown) Type and Screen (units (unknown) date) Stat unknown) (unknown) (no (unknown) (unknown) XR chest 1V Stat (units (unknown) date) unknown) (unknown) (no (unknown) (unknown) [From NASONEX] (units (unknown) date) unknown) (unknown) (no (unknown) (unknown) aerosol inhaler (units (unknown) date) (Ventolin HFA) unknown) shortness of breath or wheezing (unknown) (no (unknown) (unknown) albuterol (units (unkn own) date) sulfate 90 unknown) mcg/actuation 1 puff inhalation Q6H PRN 11/14/21 (unknown) (no (unknown) (unknown) albuterol (units (unkn own) date) sulfate [Ventolin unknown) HFA] 90 mcg/actuation HFA aerosol inhaler (unknown) (no (unknown) (unknown) alcohol intake (units (unknown) date) frequency: 3 or unknown) more drinks per day (unknown) (no (unknown) (unknown) alcohol intake: (units (unknown) date) current unknown) (unknown) (no (unknown) (unknown) amlodipine 5 mg (units (unknown) date) tablet 5 mg PO unknown) BID 01/02/22 01/02/22 (unknown) (no (unknown) (unknown) amlodipine 5 mg (units (unknown) date) tablet unknown) (unknown) (no (unknown) (unknown) amoxicillin 875 (units (unknown) date) mg-potassium 1 unknown) tab PO Q12H #20 tabs 05/25/21 (unknown) (no (unknown) (unknown) amoxicillin-pot (units (unknown) date) clavulanate unknown) [Augmentin] 875-125 mg tablet (unknown) (no (unknown) (unknown) angustifolia) (units ( unknown) date) sinus unknown) (unknown) (no (unknown) (unknown) breathe (units (unkno wn) date) unknown) (unknown) (no (unknown) (unknown) breathing (units (unkn own) date) unknown) (unknown) (no (unknown) (unknown) cannot (units (unkno wn) date) unknown) (unknown) (no (unknown) (unknown) clavulanate 125 (units (unknown) date) mg tablet unknown) (unknown) (no (unknown) (unknown) clobetasol 0.05 (units (unknown) date) % scalp solution unknown) 1 applic topical BEDTIME #25 mL 03/03/21 (unknown) (no (unknown) (unknown) clobetasol 0.05 (units (unknown) date) % solution unknown) (unknown) (no (unknown) (unknown) closes, (units (unkno wn) date) unknown) (unknown) (no (unknown) (unknown) congestion (units (unk nown) date) unknown) (unknown) (no (unknown) (unknown) grass pollen (units (u nknown) date) Allergy sinus unknown) Verified 01/02/22 13:27 (unknown) (no (unknown) (unknown) lavender (units (unkno wn) date) (Lavandula unknown) Allergy severe Verified 01/02/22 13:27 (unknown) (no (unknown) (unknown) metoprolol (units (unk nown) date) succinate 50 mg unknown) 50 mg PO BID #180 tabs 01/02/22 (unknown) (no (unknown) (unknown) metoprolol (units (unk nown) date) succinate 50 mg unknown) tablet extended release 24 hr (unknown) (no (unknown) (unknown) mometasone (units (unk nown) date) furoate Allergy unknown) Unknown Verified 01/02/22 13:27 (unknown) (no (unknown) (unknown) pine tanya Allergy (units (unknown) date) Severe throat unknown) Uncoded 01/02/22 13:27 (unknown) (no (unknown) (unknown) pramipexole 0.25 (units (unknown) date) mg tablet 0.25 mg unknown) PO BEDTIME #90 tabs 01/02/22 (unknown) (no (unknown) (unknown) pramipexole (units (un known) date) [Mirapex] 0.25 mg unknown) tablet (unknown) (no (unknown) (unknown) puncture 1 cap (units (unknown) date) using device; one unknown) dose = 2 inhalations (unknown) (no (unknown) (unknown) quit status: has (units (unknown) date) quit before unknown) (unknown) (no (unknown) (unknown) release 24 hr (units ( unknown) date) (Detrol LA) unknown) (unknown) (no (unknown) (unknown) spironolactone (units (unknown) date) 25 mg tablet 25 unknown) mg PO DAILY 03/03/21 01/02/22 (unknown) (no (unknown) (unknown) spironolactone (units (unknown) date) 25 mg tablet unknown) (unknown) (no (unknown) (unknown) swelling, (units (unkn own) date) unknown) (unknown) (no (unknown) (unknown) tablet,extended (units (unknown) date) release 24 hr unknown) (unknown) (no (unknown) (unknown) tiotropium (units (unk nown) date) bromide 18 mcg unknown) capsule 1 cap inhalation DAILY #90 10/28/20 (unknown) (no (unknown) (unknown) tobacco type: (units ( unknown) date) cigarettes unknown) (unknown) (no (unknown) (unknown) tolterodine 2 mg (units (unknown) date) capsule,extended unknown) 2 mg PO BEDTIME #90 caps 01/02/22 (unknown) (no (unknown) (unknown) tolterodine (units (un known) date) [Detrol LA] 2 mg unknown) capsule,extended release 24hr (unknown) (no (unknown) (unknown) trouble (units (unkno wn) date) unknown) (unknown) (no (unknown) (unknown) with HandiHaler) (units (unknown) date) unknown) (unknown) (no (unknown) (unknown) with inhalation (units (unknown) date) device (Spiriva unknown) inhalations Result panel 6 (unknown) (no (unknown) (unknown) (no value) (units (unk nown) date) unknown) (unknown) (no (unknown) (unknown) [id number] (units (unkno wn) date) unknown) (unknown) (no (unknown) (unknown) 1. Sigmoid (units (unk n) date) diverticulosis unknown) without evidence of acute diverticulitis. No bowel (unknown) (no (unknown) (unknown) 01/21/22 (units (unkno wn) date) unknown) (unknown) (no (unknown) (unknown) [address] [place] [address] (units (unknown) date) unknown) (unknown) (no (unknown) (unknown) 2. Hepatic (units (unk n) date) steatosis, no unknown) discrete hepatic lesion. (unknown) (no (unknown) (unknown) 3. Degenerative (units (unknown) date) disc disease unknown) throughout lower thoracic and lumbar spine. No (unknown) (no (unknown) (unknown) ABDOMEN: (units (unkno wn) date) unknown) (unknown) (no (unknown) (unknown) Abdominal Nodes: (units (unknown) date) No retroperitoneal unknown) or mesenteric adenopathy by size criteria. (unknown) (no (unknown) (unknown) Accession Number: (units (unknown) date) [id number] unknown) (unknown) (no (unknown) (unknown) Adrenal Glands: (units (unknown) date) Unremarkable. unknown) (unknown) (no (unknown) (unknown) After the (units (unkn own) date) administration of unknown) intravenous contrast, axial sections acquired from (unknown) (no (unknown) (unknown) Age/Sex: 56 / F (units (unknown) date) Date of Service: unknown) (unknown) (no (unknown) (unknown) [place] (units ( unknown) date) [id number] unknown) (unknown) (no (unknown) (unknown) Approved by: Augustus (units (unknown) date) Kyra Aguirre on unknown) 01/21/2022 at 15:30 (unknown) (no (unknown) (unknown) Biliary ducts: (units (unknown) date) Unremarkable. unknown) (unknown) (no (unknown) (unknown) Bladder: (units (unkno wn) date) Unremarkable. unknown) (unknown) (no (unknown) (unknown) Bones: No (units (unkn own) date) suspicious bony unknown) lesion. No acute vertebral body compression (unknown) (no (unknown) (unknown) COMPARISON: None. (units (unknown) date) unknown) (unknown) (no (unknown) (unknown) CT Scan Report (units (unknown) date) unknown) (unknown) (no (unknown) (unknown) : 1965 (units (unknown) date) Acct:[id number] unknown) (unknown) (no (unknown) (unknown) Dictated by: Augustus (units (unknown) date) Kyra Aguirre on unknown) 01/21/2022 at 15:27 (unknown) (no (unknown) (unknown) FINDINGS: (units (unkn own) date) unknown) (unknown) (no (unknown) (unknown) For (units (unkno wn) date) unknown) (unknown) (no (unknown) (unknown) Gallbladder: (units (u nknown) date) Unremarkable. unknown) (unknown) (no (unknown) (unknown) Heart: No (units (unkn own) date) significant unknown) findings. (unknown) (no (unknown) (unknown) IMPRESSION: (units (un known) date) unknown) (unknown) (no (unknown) (unknown) INDICATIONS: abd (units (unknown) date) pain, gi bleed unknown) (unknown) (no (unknown) (unknown) Image quality: (units (unknown) date) Excellent. unknown) (unknown) (no (unknown) (unknown) [facility] (units (unknown) date) unknown) (unknown) (no (unknown) (unknown) Kidneys and (units (un known) date) Ureters: No stones unknown) or hydronephrosis. No hydroureter. (unknown) (no (unknown) (unknown) Liver: Liver is (units (unknown) date) normal in size. unknown) Moderate hepatic steatosis is seen. No (unknown) (no (unknown) (unknown) Loc: ED (units (unkno wn) date) unknown) (unknown) (no (unknown) (unknown) Lung bases: (units (un known) date) Unremarkable. unknown) (unknown) (no (unknown) (unknown) Miscellaneous: No (units (unknown) date) hernias are seen. unknown) (unknown) (no (unknown) (unknown) Moderate right (units (unknown) date) hip joint unknown) osteoarthritic changes are seen. No evidence of (unknown) (no (unknown) (unknown) Ordering (units (unkno wn) date) Provider: unknown) Lilian Armstrong D.O. (unknown) (no (unknown) (unknown) PELVIS: (units (unkno wn) date) unknown) (unknown) (no (unknown) (unknown) PROCEDURE: CT (units ( unknown) date) ABDOMEN PELVIS W unknown) CON (unknown) (no (unknown) (unknown) Pancreas: (units (unkn own) date) Unremarkable. unknown) (unknown) (no (unknown) (unknown) Patient: (units (unkno wn) date) Rosalba Pabon MR#: unknown) [id number] (unknown) (no (unknown) (unknown) Pelvic Nodes: No (units (unknown) date) enlarged lymph unknown) nodes. (unknown) (no (unknown) (unknown) Pelvic Organs: (units (unknown) date) Unremarkable. unknown) (unknown) (no (unknown) (unknown) Peritoneum: No (units (unknown) date) abnormal unknown) intraperitoneal fluid. No free air. (unknown) (no (unknown) (unknown) Procedure: CT (units ( unknown) date) abdomen pelvis w unknown) con (unknown) (no (unknown) (unknown) Sigmoid (units (unkno wn) date) diverticulosis is unknown) seen without evidence of acute diverticulitis. No (unknown) (no (unknown) (unknown) Signed (units (unkno wn) date) unknown) (unknown) (no (unknown) (unknown) Spleen: Spleen is (units (unknown) date) normal in size. unknown) Focal calcification in anterior aspect of (unknown) (no (unknown) (unknown) Stomach and (units (un known) date) Bowel: There is a unknown) small hiatal hernia. No bowel obstruction. No (unknown) (no (unknown) (unknown) TECHNIQUE: (units (unk nown) date) unknown) (unknown) (no (unknown) (unknown) Ventral Wall: (units ( unknown) date) Tiny umbilical unknown) hernia is seen containing fat only. (unknown) (no (unknown) (unknown) Vessels: Aorta (units (unknown) date) and inferior vena unknown) cava are normal in size. (unknown) (no (unknown) (unknown) abscess (units (unkno wn) date) unknown) (unknown) (no (unknown) (unknown) acute (units (unkno wn) date) unknown) (unknown) (no (unknown) (unknown) adjustment (units (unk nown) date) unknown) (unknown) (no (unknown) (unknown) and lumbar (units (unk nown) date) unknown) (unknown) (no (unknown) (unknown) avascular (units (unkn own) date) unknown) (unknown) (no (unknown) (unknown) bases to the (units (u nknown) date) pubic symphysis. unknown) Coronal and sagittal reformats were performed. (unknown) (no (unknown) (unknown) collection. (units (un known) date) unknown) (unknown) (no (unknown) (unknown) compression (units (un known) date) fracture. Right unknown) worse than left bilateral hip joint (unknown) (no (unknown) (unknown) discrete (units (unkno wn) date) unknown) (unknown) (no (unknown) (unknown) fracture. (units (unkn own) date) unknown) (unknown) (no (unknown) (unknown) gastric or (units (unk nown) date) unknown) (unknown) (no (unknown) (unknown) hepatic lesion. (units (unknown) date) unknown) (unknown) (no (unknown) (unknown) necrosis of (units (un known) date) femoral head. unknown) Degenerative disc disease throughout lower thoracic (unknown) (no (unknown) (unknown) obstruction (units (un known) date) unknown) (unknown) (no (unknown) (unknown) of mA and/or kV (units (unknown) date) according to unknown) patient size. (unknown) (no (unknown) (unknown) or abnormal bowel (units (unknown) date) wall thickening. unknown) No free fluid or free air. (unknown) (no (unknown) (unknown) osteoarthritis. (units (unknown) date) unknown) (unknown) (no (unknown) (unknown) radiation dose (units (unknown) date) reduction, the unknown) following was used: automated exposure control, (unknown) (no (unknown) (unknown) seen. (units (unkno wn) date) unknown) (unknown) (no (unknown) (unknown) small bowel wall (units (unknown) date) thickening. No unknown) colonic wall thickening. No mesenteric fat (unknown) (no (unknown) (unknown) spine is seen. (units (unknown) date) unknown) (unknown) (no (unknown) (unknown) spleen is (units (unkn own) date) unknown) (unknown) (no (unknown) (unknown) stranding. (units (unk nown) date) unknown) (unknown) (no (unknown) (unknown) the lung (units (unkno wn) date) unknown) Result panel 7 (unknown) (no (unknown) (unknown) (no value) (units (unk nown) date) unknown) (unknown) (no (unknown) (unknown) #18 grams (units (unkn own) date) unknown) (unknown) (no (unknown) (unknown) (Augmentin) (units (un known) date) unknown) (unknown) (no (unknown) (unknown) (Mirapex) (units (unkn own) date) unknown) (unknown) (no (unknown) (unknown) 0.25 mg PO (units (unk nown) date) BEDTIME Qty: 90 unknown) 1RF (unknown) (no (unknown) (unknown) 1 applic topical (units (unknown) date) BEDTIME Qty: 25 unknown) 0RF (unknown) (no (unknown) (unknown) 1 cap inhalation (units (unknown) date) DAILY Qty: 90 1RF unknown) (unknown) (no (unknown) (unknown) 1 puff (units (unkno wn) date) INHALATION Q6H unknown) PRN (Reason: shortness of breath or wheezing) Qty: 18 (unknown) (no (unknown) (unknown) 1 tab PO Q12H (units ( unknown) date) Qty: 20 0RF unknown) (unknown) (no (unknown) (unknown) 01/21/22 14:53 (units (unknown) date) unknown) (unknown) (no (unknown) (unknown) 01/21/22 14:54 (units (unknown) date) unknown) (unknown) (no (unknown) (unknown) 2 mg PO BEDTIME (units (unknown) date) Qty: 90 1RF unknown) (unknown) (no (unknown) (unknown) 25 mg PO DAILY (units (unknown) date) unknown) (unknown) (no (unknown) (unknown) 5 mg PO BID (units (un known) date) unknown) (unknown) (no (unknown) (unknown) 50 mg PO BID (units (u nknown) date) Qty: 180 1RF unknown) (unknown) (no (unknown) (unknown) [id number] (units (unkno wn) date) unknown) (unknown) (no (unknown) (unknown) 5RF (units (unkno wn) date) unknown) (unknown) (no (unknown) (unknown) Abdominal pain (units (unknown) date) unknown) (unknown) (no (unknown) (unknown) Age/Sex: 56 / F (units (unknown) date) unknown) (unknown) (no (unknown) (unknown) Allergic (units (unkno wn) date) dermatitis of unknown) eyelids of both eyes (unknown) (no (unknown) (unknown) Allergies (units (unkn own) date) unknown) (unknown) (no (unknown) (unknown) Allergy/AdvReac (units (unknown) date) Type Severity unknown) Reaction Status Date / Time (unknown) (no (unknown) (unknown) Anemia (units (unkno wn) date) unknown) (unknown) (no (unknown) (unknown) Apply twice week (units (unknown) date) unknown) (unknown) (no (unknown) (unknown) Arthritis (units (unkn own) date) (Unknown) unknown) (unknown) (no (unknown) (unknown) Asthma (Unknown) (units (unknown) date) unknown) (unknown) (no (unknown) (unknown) Asthma (units (unkno wn) date) unknown) (unknown) (no (unknown) (unknown) BNP [NT-proBNP (units (unknown) date) (BNP-Adult 18+)] unknown) Stat (unknown) (no (unknown) (unknown) COPD (chronic (units ( unknown) date) obstructive unknown) pulmonary disease) (unknown) (no (unknown) (unknown) COVID19 -Nasal (units (unknown) date) RAPID/Pre-Proc unknown) Stat (unknown) (no (unknown) (unknown) Carpal tunnel (units ( unknown) date) syndrome (-2017) unknown) (unknown) (no (unknown) (unknown) Chief complaint: (units (unknown) date) GI Bleed unknown) (unknown) (no (unknown) (unknown) Chronic atrial (units (unknown) date) fibrillation unknown) (unknown) (no (unknown) (unknown) Complete Blood (units (unknown) date) Count AUTO DIFF unknown) Stat (unknown) (no (unknown) (unknown) Comprehensive (units ( unknown) date) Metabolic Panel unknown) Stat (unknown) (no (unknown) (unknown) Cor pulmonale (units ( unknown) date) (chronic) unknown) (unknown) (no (unknown) (unknown) Course (units (unkno wn) date) unknown) (unknown) (no (unknown) (unknown) : 1965 (units (unknown) date) Acct:[id number] unknown) (unknown) (no (unknown) (unknown) Date of Service: (units (unknown) date) 01/21/22 unknown) (unknown) (no (unknown) (unknown) Departure (units (unkn own) date) unknown) (unknown) (no (unknown) (unknown) Discharge Plan (units (unknown) date) unknown) (unknown) (no (unknown) (unknown) ED Orders (units (unkn own) date) unknown) (unknown) (no (unknown) (unknown) EKG-12 Lead Stat (units (unknown) date) unknown) (unknown) (no (unknown) (unknown) ER Physician: (units ( unknown) date) Lilian Armstrong unknown) D.O. (unknown) (no (unknown) (unknown) Eczema (units (unkno wn) date) unknown) (unknown) (no (unknown) (unknown) Emergency Report (units (unknown) date) unknown) (unknown) (no (unknown) (unknown) Family History (units (unknown) date) (Reviewed unknown) 01/02/22 @ 14:15 by Chung Mcdonald DO) (unknown) (no (unknown) (unknown) General (units (unkno wn) date) unknown) (unknown) (no (unknown) (unknown) HPI - GI Bleed (units (unknown) date) unknown) (unknown) (no (unknown) (unknown) History of (units (unk nown) date) hysterectomy for unknown) cancer (unknown) (no (unknown) (unknown) Home Medications (units (unknown) date) unknown) (unknown) (no (unknown) (unknown) Impetigo (units (unkno wn) date) unknown) (unknown) (no (unknown) (unknown) Incontinence (units (u nknown) date) unknown) (unknown) (no (unknown) (unknown) [facility] (units (unknown) date) [address] [place] [address] unknown) [place] [address] (unknown) (no (unknown) (unknown) Medical History (units (unknown) date) (Reviewed unknown) 01/02/22 @ 14:15 by Chung Mcdonald DO) (unknown) (no (unknown) (unknown) Medication (units (unk nown) date) Instructions unknown) Recorded Confirmed (unknown) (no (unknown) (unknown) Medication (units (unk nown) date) Instructions unknown) Recorded (unknown) (no (unknown) (unknown) Morbid obesity (units (unknown) date) due to excess unknown) calories (unknown) (no (unknown) (unknown) Mother (units (unknown) date) CVA (cerebral unknown) vascular accident) (unknown) (no (unknown) (unknown) No Action (units (unkn own) date) unknown) (unknown) (no (unknown) (unknown) Ordered: (units (unkno wn) date) unknown) (unknown) (no (unknown) (unknown) Orders (units (unkno wn) date) unknown) (unknown) (no (unknown) (unknown) Partial (units (unkno wn) date) Thromboplastin unknown) Time Stat (unknown) (no (unknown) (unknown) Patient History (units (unknown) date) unknown) (unknown) (no (unknown) (unknown) Patient: (units (unkno wn) date) Rosalba Pabon unknown) MR#: [id number] (unknown) (no (unknown) (unknown) Chung Mcdonald, (units (unknown) date) DO [Primary Care unknown) Provider] (unknown) (no (unknown) (unknown) Prescriptions: (units (unknown) date) unknown) (unknown) (no (unknown) (unknown) Previous Rx's (units ( unknown) date) unknown) (unknown) (no (unknown) (unknown) Prothrombin Time (units (unknown) date) INR Stat unknown) (unknown) (no (unknown) (unknown) Pulmonary (units (unkn own) date) hypertension unknown) (unknown) (no (unknown) (unknown) Referrals: (units (unk nown) date) unknown) (unknown) (no (unknown) (unknown) Related Data (units (u nknown) date) unknown) (unknown) (no (unknown) (unknown) Restless leg (units (u nknown) date) syndrome unknown) (unknown) (no (unknown) (unknown) Right-sided low (units (unknown) date) back pain with unknown) sciatica (unknown) (no (unknown) (unknown) Rx Instructions: (units (unknown) date) unknown) (unknown) (no (unknown) (unknown) Signed By: (units (unk nown) date) unknown) (unknown) (no (unknown) (unknown) Smoking Status: (units (unknown) date) Current every day unknown) smoker (unknown) (no (unknown) (unknown) Social History (units (unknown) date) (Reviewed unknown) 11/15/20 @ 11:14 by Fernando Steve DO) (unknown) (no (unknown) (unknown) Spiriva with (units (u nknown) date) HandiHaler 18 mcg unknown) capsule, w/inhalation device (unknown) (no (unknown) (unknown) Staph skin (units (unk nown) date) infection unknown) (unknown) (no (unknown) (unknown) Stated (units (unkno wn) date) complaint: Coffee unknown) ground emesis, CHF, +thinners (unknown) (no (unknown) (unknown) Substance Use (units ( unknown) date) Type: does not unknown) use (unknown) (no (unknown) (unknown) Surgical History (units (unknown) date) (Reviewed unknown) 01/02/22 @ 14:15 by Chung Mcdonald DO) (unknown) (no (unknown) (unknown) Tachycardia (units (un known) date) unknown) (unknown) (no (unknown) (unknown) Time Seen by (units (u nknown) date) Provider: unknown) 01/21/22 14:54 (unknown) (no (unknown) (unknown) Troponin + CK (units ( unknown) date) Cardiac Panel unknown) Stat (unknown) (no (unknown) (unknown) Type and Screen (units (unknown) date) Stat unknown) (unknown) (no (unknown) (unknown) XR chest 1V Stat (units (unknown) date) unknown) (unknown) (no (unknown) (unknown) [From NASONEX] (units (unknown) date) unknown) (unknown) (no (unknown) (unknown) aerosol inhaler (units (unknown) date) (Ventolin HFA) unknown) shortness of breath or wheezing (unknown) (no (unknown) (unknown) albuterol (units (unkn own) date) sulfate 90 unknown) mcg/actuation 1 puff inhalation Q6H PRN 11/14/21 (unknown) (no (unknown) (unknown) albuterol (units (unkn own) date) sulfate [Ventolin unknown) HFA] 90 mcg/actuation HFA aerosol inhaler (unknown) (no (unknown) (unknown) alcohol intake (units (unknown) date) frequency: 3 or unknown) more drinks per day (unknown) (no (unknown) (unknown) alcohol intake: (units (unknown) date) current unknown) (unknown) (no (unknown) (unknown) amlodipine 5 mg (units (unknown) date) tablet 5 mg PO unknown) BID 01/02/22 01/02/22 (unknown) (no (unknown) (unknown) amlodipine 5 mg (units (unknown) date) tablet unknown) (unknown) (no (unknown) (unknown) amoxicillin 875 (units (unknown) date) mg-potassium 1 unknown) tab PO Q12H #20 tabs 05/25/21 (unknown) (no (unknown) (unknown) amoxicillin-pot (units (unknown) date) clavulanate unknown) [Augmentin] 875-125 mg tablet (unknown) (no (unknown) (unknown) angustifolia) (units ( unknown) date) sinus unknown) (unknown) (no (unknown) (unknown) breathe (units (unkno wn) date) unknown) (unknown) (no (unknown) (unknown) breathing (units (unkn own) date) unknown) (unknown) (no (unknown) (unknown) cannot (units (unkno wn) date) unknown) (unknown) (no (unknown) (unknown) clavulanate 125 (units (unknown) date) mg tablet unknown) (unknown) (no (unknown) (unknown) clobetasol 0.05 (units (unknown) date) % scalp solution unknown) 1 applic topical BEDTIME #25 mL 03/03/21 (unknown) (no (unknown) (unknown) clobetasol 0.05 (units (unknown) date) % solution unknown) (unknown) (no (unknown) (unknown) closes, (units (unkno wn) date) unknown) (unknown) (no (unknown) (unknown) congestion (units (unk nown) date) unknown) (unknown) (no (unknown) (unknown) grass pollen (units (u nknown) date) Allergy sinus unknown) Verified 01/02/22 13:27 (unknown) (no (unknown) (unknown) lavender (units (unkno wn) date) (Lavandula unknown) Allergy severe Verified 01/02/22 13:27 (unknown) (no (unknown) (unknown) metoprolol (units (unk nown) date) succinate 50 mg unknown) 50 mg PO BID #180 tabs 01/02/22 (unknown) (no (unknown) (unknown) metoprolol (units (unk nown) date) succinate 50 mg unknown) tablet extended release 24 hr (unknown) (no (unknown) (unknown) mometasone (units (unk nown) date) furoate Allergy unknown) Unknown Verified 01/02/22 13:27 (unknown) (no (unknown) (unknown) pine tanya Allergy (units (unknown) date) Severe throat unknown) Uncoded 01/02/22 13:27 (unknown) (no (unknown) (unknown) pramipexole 0.25 (units (unknown) date) mg tablet 0.25 mg unknown) PO BEDTIME #90 tabs 01/02/22 (unknown) (no (unknown) (unknown) pramipexole (units (un known) date) [Mirapex] 0.25 mg unknown) tablet (unknown) (no (unknown) (unknown) puncture 1 cap (units (unknown) date) using device; one unknown) dose = 2 inhalations (unknown) (no (unknown) (unknown) quit status: has (units (unknown) date) quit before unknown) (unknown) (no (unknown) (unknown) release 24 hr (units ( unknown) date) (Detrol LA) unknown) (unknown) (no (unknown) (unknown) spironolactone (units (unknown) date) 25 mg tablet 25 unknown) mg PO DAILY 03/03/21 01/02/22 (unknown) (no (unknown) (unknown) spironolactone (units (unknown) date) 25 mg tablet unknown) (unknown) (no (unknown) (unknown) swelling, (units (unkn own) date) unknown) (unknown) (no (unknown) (unknown) tablet,extended (units (unknown) date) release 24 hr unknown) (unknown) (no (unknown) (unknown) tiotropium (units (unk nown) date) bromide 18 mcg unknown) capsule 1 cap inhalation DAILY #90 10/28/20 (unknown) (no (unknown) (unknown) tobacco type: (units ( unknown) date) cigarettes unknown) (unknown) (no (unknown) (unknown) tolterodine 2 mg (units (unknown) date) capsule,extended unknown) 2 mg PO BEDTIME #90 caps 01/02/22 (unknown) (no (unknown) (unknown) tolterodine (units (un known) date) [Detrol LA] 2 mg unknown) capsule,extended release 24hr (unknown) (no (unknown) (unknown) trouble (units (unkno wn) date) unknown) (unknown) (no (unknown) (unknown) with HandiHaler) (units (unknown) date) unknown) (unknown) (no (unknown) (unknown) with inhalation (units (unknown) date) device (Spiriva unknown) inhalations Result panel 8 (unknown) (no date) (unknown) (unknown) 0 /ul (unkn own) (unknown) (no date) (unknown) (unknown) 0.1 % (unkn own) (unknown) (no date) (unknown) (unknown) 0.6 % (unkn own) (unknown) (no date) (unknown) (unknown) 1.68 x10 6/ul (unkn own) (unknown) (no date) (unknown) (unknown) 100 /ul (unkn own) (unknown) (no date) (unknown) (unknown) 11.5 x10 3/ul (unkn own) (unknown) (no date) (unknown) (unknown) 1100 /ul (unkn own) (unknown) (no date) (unknown) (unknown) 12.8 % (unkn own) (unknown) (no date) (unknown) (unknown) 12.8 % (unkn own) (unknown) (no date) (unknown) (unknown) 14.7 % (unkn own) (unknown) (no date) (unknown) (unknown) 1700 /ul (unkn own) (unknown) (no date) (unknown) (unknown) 21.9 % (unkn own) (unknown) (no date) (unknown) (unknown) 23.0 pg (unkn own) (unknown) (no date) (unknown) (unknown) 3.9 g/dl (unkn own) (unknown) (no date) (unknown) (unknown) 3.9 g/dl (unkn own) (unknown) (no date) (unknown) (unknown) 30.3 % (unkn own) (unknown) (no date) (unknown) (unknown) 331 x10 3/ul (unkn own) (unknown) (no date) (unknown) (unknown) 74.9 % (unkn own) (unknown) (no date) (unknown) (unknown) 75.9 fl (unkn own) (unknown) (no date) (unknown) (unknown) 8600 /ul (unkn own) (unknown) (no date) (unknown) (unknown) 9.7 % (unkn own) Result panel 9 (unknown) (no (unknown) (unknown) (no value) (units (unk nown) date) unknown) (unknown) (no (unknown) (unknown) #18 grams (units (unkn own) date) unknown) (unknown) (no (unknown) (unknown) (Augmentin) (units (un known) date) unknown) (unknown) (no (unknown) (unknown) (Mirapex) (units (unkn own) date) unknown) (unknown) (no (unknown) (unknown) 0.25 mg PO (units (unk nown) date) BEDTIME Qty: 90 unknown) 1RF (unknown) (no (unknown) (unknown) 1 applic topical (units (unknown) date) BEDTIME Qty: 25 unknown) 0RF (unknown) (no (unknown) (unknown) 1 cap inhalation (units (unknown) date) DAILY Qty: 90 1RF unknown) (unknown) (no (unknown) (unknown) 1 puff (units (unkno wn) date) INHALATION Q6H unknown) PRN (Reason: shortness of breath or wheezing) Qty: 18 (unknown) (no (unknown) (unknown) 1 tab PO Q12H (units ( unknown) date) Qty: 20 0RF unknown) (unknown) (no (unknown) (unknown) 01/21/22 14:50 (units (unknown) date) unknown) (unknown) (no (unknown) (unknown) 01/21/22 14:53 (units (unknown) date) unknown) (unknown) (no (unknown) (unknown) 01/21/22 14:54 (units (unknown) date) unknown) (unknown) (no (unknown) (unknown) 01/21/22 15:04 (units (unknown) date) unknown) (unknown) (no (unknown) (unknown) 01/21/22 15:05 (units (unknown) date) unknown) (unknown) (no (unknown) (unknown) 01/21/22 (units (unkno wn) date) unknown) (unknown) (no (unknown) (unknown) 14:40 (units (unkno wn) date) unknown) (unknown) (no (unknown) (unknown) 2 mg PO BEDTIME (units (unknown) date) Qty: 90 1RF unknown) (unknown) (no (unknown) (unknown) 25 mg PO DAILY (units (unknown) date) unknown) (unknown) (no (unknown) (unknown) 5 mg PO BID (units (un known) date) unknown) (unknown) (no (unknown) (unknown) 50 mg PO BID (units (u nknown) date) Qty: 180 1RF unknown) (unknown) (no (unknown) (unknown) [id number] (units (unkno wn) date) unknown) (unknown) (no (unknown) (unknown) 5RF (units (unkno wn) date) unknown) (unknown) (no (unknown) (unknown) Abdominal pain (units (unknown) date) unknown) (unknown) (no (unknown) (unknown) Age/Sex: 56 / F (units (unknown) date) unknown) (unknown) (no (unknown) (unknown) Allergic (units (unkno wn) date) dermatitis of unknown) eyelids of both eyes (unknown) (no (unknown) (unknown) Allergies (units (unkn own) date) unknown) (unknown) (no (unknown) (unknown) Allergy/AdvReac (units (unknown) date) Type Severity unknown) Reaction Status Date / Time (unknown) (no (unknown) (unknown) Anemia (units (unkno wn) date) unknown) (unknown) (no (unknown) (unknown) Apply twice week (units (unknown) date) unknown) (unknown) (no (unknown) (unknown) Arthritis (units (unkn own) date) (Unknown) unknown) (unknown) (no (unknown) (unknown) Asthma (Unknown) (units (unknown) date) unknown) (unknown) (no (unknown) (unknown) Asthma (units (unkno wn) date) unknown) (unknown) (no (unknown) (unknown) BNP [NT-proBNP (units (unknown) date) (BNP-Adult 18+)] unknown) Stat (unknown) (no (unknown) (unknown) Blood Pressure (units (unknown) date) 102/53 L 01/21/22 unknown) 14:40 (unknown) (no (unknown) (unknown) Blood Pressure (units (unknown) date) 102/53 L unknown) (unknown) (no (unknown) (unknown) COPD (chronic (units ( unknown) date) obstructive unknown) pulmonary disease) (unknown) (no (unknown) (unknown) COVID19 -Nasal (units (unknown) date) RAPID/Pre-Proc unknown) Stat (unknown) (no (unknown) (unknown) CT abdomen (units (unk nown) date) pelvis w con Stat unknown) (unknown) (no (unknown) (unknown) Carpal tunnel (units ( unknown) date) syndrome (-2017) unknown) (unknown) (no (unknown) (unknown) Chief complaint: (units (unknown) date) GI Bleed unknown) (unknown) (no (unknown) (unknown) Chronic atrial (units (unknown) date) fibrillation unknown) (unknown) (no (unknown) (unknown) Complete Blood (units (unknown) date) Count AUTO DIFF unknown) Stat (unknown) (no (unknown) (unknown) Comprehensive (units ( unknown) date) Metabolic Panel unknown) Stat (unknown) (no (unknown) (unknown) Cor pulmonale (units ( unknown) date) (chronic) unknown) (unknown) (no (unknown) (unknown) Course (units (unkno wn) date) unknown) (unknown) (no (unknown) (unknown) : 1965 (units (unknown) date) Acct:[id number] unknown) (unknown) (no (unknown) (unknown) Date of Service: (units (unknown) date) 01/21/22 unknown) (unknown) (no (unknown) (unknown) Departure (units (unkn own) date) unknown) (unknown) (no (unknown) (unknown) Discharge Plan (units (unknown) date) unknown) (unknown) (no (unknown) (unknown) Discontinued (units (u nknown) date) Medications unknown) (unknown) (no (unknown) (unknown) ED Orders (units (unkn own) date) unknown) (unknown) (no (unknown) (unknown) EKG-12 Lead Stat (units (unknown) date) unknown) (unknown) (no (unknown) (unknown) ER Physician: (units ( unknown) date) Lilian Armstrong unknown) D.O. (unknown) (no (unknown) (unknown) Eczema (units (unkno wn) date) unknown) (unknown) (no (unknown) (unknown) Emergency Report (units (unknown) date) unknown) (unknown) (no (unknown) (unknown) Ethanol (ETOH) (units (unknown) date) Stat unknown) (unknown) (no (unknown) (unknown) Exam (units (unkno wn) date) unknown) (unknown) (no (unknown) (unknown) Family History (units (unknown) date) (Reviewed unknown) 01/02/22 @ 14:15 by Chung Mcdonald DO) (unknown) (no (unknown) (unknown) Fentanyl (units (unkno wn) date) (Fentanyl 100 unknown) Mcg/2 Ml Inj) 25 mcg IV NOW ONE (unknown) (no (unknown) (unknown) General (units (unkno wn) date) unknown) (unknown) (no (unknown) (unknown) HPI - GI Bleed (units (unknown) date) unknown) (unknown) (no (unknown) (unknown) HPI Narrative: (units (unknown) date) unknown) (unknown) (no (unknown) (unknown) History of (units (unk nown) date) Present Illness unknown) (unknown) (no (unknown) (unknown) History of (units (unk nown) date) hysterectomy for unknown) cancer (unknown) (no (unknown) (unknown) Home Medications (units (unknown) date) unknown) (unknown) (no (unknown) (unknown) Impetigo (units (unkno wn) date) unknown) (unknown) (no (unknown) (unknown) Incontinence (units (u nknown) date) unknown) (unknown) (no (unknown) (unknown) Initial Vital (units ( unknown) date) Signs unknown) (unknown) (no (unknown) (unknown) Initial Vital (units ( unknown) date) Signs: unknown) (unknown) (no (unknown) (unknown) [facility] (units (unknown) date) [address] unknown) [place] [address] (unknown) (no (unknown) (unknown) Lab Data (units (unkno wn) date) unknown) (unknown) (no (unknown) (unknown) Limitations: no (units (unknown) date) limitations unknown) (unknown) (no (unknown) (unknown) MDM - GI Bleed (units (unknown) date) unknown) (unknown) (no (unknown) (unknown) Medical History (units (unknown) date) (Reviewed unknown) 01/02/22 @ 14:15 by Chung Mcdonald DO) (unknown) (no (unknown) (unknown) Medication (units (unk nown) date) Instructions unknown) Recorded Confirmed (unknown) (no (unknown) (unknown) Medication (units (unk nown) date) Instructions unknown) Recorded (unknown) (no (unknown) (unknown) Morbid obesity (units (unknown) date) due to excess unknown) calories (unknown) (no (unknown) (unknown) Mother (units (unknown) date) CVA (cerebral unknown) vascular accident) (unknown) (no (unknown) (unknown) No Action (units (unkn own) date) unknown) (unknown) (no (unknown) (unknown) Ondansetron HCl (units (unknown) date) (Ondansetron 4 unknown) Mg/2 Ml Inj) 4 mg IV NOW ONE (unknown) (no (unknown) (unknown) Ordered: (units (unkno wn) date) unknown) (unknown) (no (unknown) (unknown) Orders (units (unkno wn) date) unknown) (unknown) (no (unknown) (unknown) Oxygen Delivery (units (unknown) date) Method 01/21/22 unknown) 14:40 (unknown) (no (unknown) (unknown) Oxygen Delivery (units (unknown) date) Method Room Air unknown) (unknown) (no (unknown) (unknown) Pantoprazole (units (u nknown) date) Sodium unknown) (Pantoprazole 40 Mg Vial) 80 mg IV NOW ONE (unknown) (no (unknown) (unknown) Partial (units (unkno wn) date) Thromboplastin unknown) Time Stat (unknown) (no (unknown) (unknown) Patient History (units (unknown) date) unknown) (unknown) (no (unknown) (unknown) Patient: (units (unkno wn) date) Rosalba Pabon unknown) MR#: [id number] (unknown) (no (unknown) (unknown) Chung Mcdonald, (units (unknown) date) DO [Primary Care unknown) Provider] (unknown) (no (unknown) (unknown) Prescriptions: (units (unknown) date) unknown) (unknown) (no (unknown) (unknown) Previous Rx's (units ( unknown) date) unknown) (unknown) (no (unknown) (unknown) Prothrombin Time (units (unknown) date) INR Stat unknown) (unknown) (no (unknown) (unknown) Pulmonary (units (unkn own) date) hypertension unknown) (unknown) (no (unknown) (unknown) Pulse Oximetry (units (unknown) date) 96 01/21/22 14:40 unknown) (unknown) (no (unknown) (unknown) Pulse Oximetry (units (unknown) date) 96 unknown) (unknown) (no (unknown) (unknown) Pulse Rate 105 H (units (unknown) date) 01/21/22 14:40 unknown) (unknown) (no (unknown) (unknown) Pulse Rate 105 H (units (unknown) date) unknown) (unknown) (no (unknown) (unknown) Referrals: (units (unk nown) date) unknown) (unknown) (no (unknown) (unknown) Related Data (units (u nknown) date) unknown) (unknown) (no (unknown) (unknown) Respiratory Rate (units (unknown) date) 18 01/21/22 14:40 unknown) (unknown) (no (unknown) (unknown) Respiratory Rate (units (unknown) date) 18 unknown) (unknown) (no (unknown) (unknown) Restless leg (units (u nknown) date) syndrome unknown) (unknown) (no (unknown) (unknown) Result diagrams: (units (unknown) date) unknown) (unknown) (no (unknown) (unknown) Right-sided low (units (unknown) date) back pain with unknown) sciatica (unknown) (no (unknown) (unknown) Rx Instructions: (units (unknown) date) unknown) (unknown) (no (unknown) (unknown) Signed By: (units (unk nown) date) unknown) (unknown) (no (unknown) (unknown) Smoking Status: (units (unknown) date) Current every day unknown) smoker (unknown) (no (unknown) (unknown) Social History (units (unknown) date) (Reviewed unknown) 11/15/20 @ 11:14 by Fernando Steve DO) (unknown) (no (unknown) (unknown) Source: patient (units (unknown) date) unknown) (unknown) (no (unknown) (unknown) Spiriva with (units (u nknown) date) HandiHaler 18 mcg unknown) capsule, w/inhalation device (unknown) (no (unknown) (unknown) Staph skin (units (unk nown) date) infection unknown) (unknown) (no (unknown) (unknown) Stated (units (unkno wn) date) complaint: Coffee unknown) ground emesis, CHF, +thinners (unknown) (no (unknown) (unknown) Stop: 01/21/22 (units (unknown) date) 14:56 unknown) (unknown) (no (unknown) (unknown) Stop: 01/21/22 (units (unknown) date) 15:06 unknown) (unknown) (no (unknown) (unknown) Substance Use (units ( unknown) date) Type: does not unknown) use (unknown) (no (unknown) (unknown) Surgical History (units (unknown) date) (Reviewed unknown) 01/02/22 @ 14:15 by Chung Mcdonald DO) (unknown) (no (unknown) (unknown) Tachycardia (units (un known) date) unknown) (unknown) (no (unknown) (unknown) This is a (units (unkn own) date) unknown) (unknown) (no (unknown) (unknown) Time Seen by (units (u nknown) date) Provider: unknown) 01/21/22 14:54 (unknown) (no (unknown) (unknown) Troponin + CK (units ( unknown) date) Cardiac Panel unknown) Stat (unknown) (no (unknown) (unknown) Type and Screen (units (unknown) date) Stat unknown) (unknown) (no (unknown) (unknown) Vital Signs - 8 (units (unknown) date) hr unknown) (unknown) (no (unknown) (unknown) Vital Signs (units (un known) date) unknown) (unknown) (no (unknown) (unknown) Vital signs: (units (u nknown) date) unknown) (unknown) (no (unknown) (unknown) XR chest 1V Stat (units (unknown) date) unknown) (unknown) (no (unknown) (unknown) [Embedded Image (units (unknown) date) Not Available] unknown) (unknown) (no (unknown) (unknown) [From NASONEX] (units (unknown) date) unknown) (unknown) (no (unknown) (unknown) aerosol inhaler (units (unknown) date) (Ventolin HFA) unknown) shortness of breath or wheezing (unknown) (no (unknown) (unknown) albuterol (units (unkn own) date) sulfate 90 unknown) mcg/actuation 1 puff inhalation Q6H PRN 11/14/21 (unknown) (no (unknown) (unknown) albuterol (units (unkn own) date) sulfate [Ventolin unknown) HFA] 90 mcg/actuation HFA aerosol inhaler (unknown) (no (unknown) (unknown) alcohol intake (units (unknown) date) frequency: 3 or unknown) more drinks per day (unknown) (no (unknown) (unknown) alcohol intake: (units (unknown) date) current unknown) (unknown) (no (unknown) (unknown) amlodipine 5 mg (units (unknown) date) tablet 5 mg PO unknown) BID 01/02/22 01/02/22 (unknown) (no (unknown) (unknown) amlodipine 5 mg (units (unknown) date) tablet unknown) (unknown) (no (unknown) (unknown) amoxicillin 875 (units (unknown) date) mg-potassium 1 unknown) tab PO Q12H #20 tabs 05/25/21 (unknown) (no (unknown) (unknown) amoxicillin-pot (units (unknown) date) clavulanate unknown) [Augmentin] 875-125 mg tablet (unknown) (no (unknown) (unknown) angustifolia) (units ( unknown) date) sinus unknown) (unknown) (no (unknown) (unknown) breathe (units (unkno wn) date) unknown) (unknown) (no (unknown) (unknown) breathing (units (unkn own) date) unknown) (unknown) (no (unknown) (unknown) cannot (units (unkno wn) date) unknown) (unknown) (no (unknown) (unknown) clavulanate 125 (units (unknown) date) mg tablet unknown) (unknown) (no (unknown) (unknown) clobetasol 0.05 (units (unknown) date) % scalp solution unknown) 1 applic topical BEDTIME #25 mL 03/03/21 (unknown) (no (unknown) (unknown) clobetasol 0.05 (units (unknown) date) % solution unknown) (unknown) (no (unknown) (unknown) closes, (units (unkno wn) date) unknown) (unknown) (no (unknown) (unknown) congestion (units (unk nown) date) unknown) (unknown) (no (unknown) (unknown) grass pollen (units (u nknown) date) Allergy sinus unknown) Verified 01/02/22 13:27 (unknown) (no (unknown) (unknown) lavender (units (unkno wn) date) (Lavandula unknown) Allergy severe Verified 01/02/22 13:27 (unknown) (no (unknown) (unknown) metoprolol (units (unk nown) date) succinate 50 mg unknown) 50 mg PO BID #180 tabs 01/02/22 (unknown) (no (unknown) (unknown) metoprolol (units (unk nown) date) succinate 50 mg unknown) tablet extended release 24 hr (unknown) (no (unknown) (unknown) mometasone (units (unk nown) date) furoate Allergy unknown) Unknown Verified 01/02/22 13:27 (unknown) (no (unknown) (unknown) pine tanya Allergy (units (unknown) date) Severe throat unknown) Uncoded 01/02/22 13:27 (unknown) (no (unknown) (unknown) pramipexole 0.25 (units (unknown) date) mg tablet 0.25 mg unknown) PO BEDTIME #90 tabs 01/02/22 (unknown) (no (unknown) (unknown) pramipexole (units (un known) date) [Mirapex] 0.25 mg unknown) tablet (unknown) (no (unknown) (unknown) puncture 1 cap (units (unknown) date) using device; one unknown) dose = 2 inhalations (unknown) (no (unknown) (unknown) quit status: has (units (unknown) date) quit before unknown) (unknown) (no (unknown) (unknown) release 24 hr (units ( unknown) date) (Detrol LA) unknown) (unknown) (no (unknown) (unknown) spironolactone (units (unknown) date) 25 mg tablet 25 unknown) mg PO DAILY 03/03/21 01/02/22 (unknown) (no (unknown) (unknown) spironolactone (units (unknown) date) 25 mg tablet unknown) (unknown) (no (unknown) (unknown) swelling, (units (unkn own) date) unknown) (unknown) (no (unknown) (unknown) tablet,extended (units (unknown) date) release 24 hr unknown) (unknown) (no (unknown) (unknown) tiotropium (units (unk nown) date) bromide 18 mcg unknown) capsule 1 cap inhalation DAILY #90 10/28/20 (unknown) (no (unknown) (unknown) tobacco type: (units ( unknown) date) cigarettes unknown) (unknown) (no (unknown) (unknown) tolterodine 2 mg (units (unknown) date) capsule,extended unknown) 2 mg PO BEDTIME #90 caps 01/02/22 (unknown) (no (unknown) (unknown) tolterodine (units (un known) date) [Detrol LA] 2 mg unknown) capsule,extended release 24hr (unknown) (no (unknown) (unknown) trouble (units (unkno wn) date) unknown) (unknown) (no (unknown) (unknown) with HandiHaler) (units (unknown) date) unknown) (unknown) (no (unknown) (unknown) with inhalation (units (unknown) date) device (Spiriva unknown) inhalations Result panel 10 (unknown) (no (unknown) (unknown) (no value) (units (unk nown) date) unknown) (unknown) (no (unknown) (unknown) #18 grams (units (unkn own) date) unknown) (unknown) (no (unknown) (unknown) (Augmentin) (units (un known) date) unknown) (unknown) (no (unknown) (unknown) (Mirapex) (units (unkn own) date) unknown) (unknown) (no (unknown) (unknown) 0.25 mg PO (units (unk nown) date) BEDTIME Qty: 90 unknown) 1RF (unknown) (no (unknown) (unknown) 1 applic topical (units (unknown) date) BEDTIME Qty: 25 unknown) 0RF (unknown) (no (unknown) (unknown) 1 cap inhalation (units (unknown) date) DAILY Qty: 90 1RF unknown) (unknown) (no (unknown) (unknown) 1 puff INHALATION (units (unknown) date) Q6H PRN (Reason: unknown) shortness of breath or wheezing) Qty: 18 (unknown) (no (unknown) (unknown) 1 tab PO Q12H (units ( unknown) date) Qty: 20 0RF unknown) (unknown) (no (unknown) (unknown) 1.6 (units (unkno wn) date) unknown) (unknown) (no (unknown) (unknown) 01/21/22 01/21/22 (units (unknown) date) Range/Units unknown) (unknown) (no (unknown) (unknown) 01/21/22 14:50 (units (unknown) date) unknown) (unknown) (no (unknown) (unknown) 01/21/22 14:53 (units (unknown) date) unknown) (unknown) (no (unknown) (unknown) 01/21/22 14:54 (units (unknown) date) unknown) (unknown) (no (unknown) (unknown) 01/21/22 15:04 (units (unknown) date) unknown) (unknown) (no (unknown) (unknown) 01/21/22 15:05 (units (unknown) date) unknown) (unknown) (no (unknown) (unknown) 01/21/22 (units (unkno wn) date) unknown) (unknown) (no (unknown) (unknown) 14:40 (units (unkno wn) date) unknown) (unknown) (no (unknown) (unknown) 14:50 14:50 (units (un known) date) unknown) (unknown) (no (unknown) (unknown) 18.6 seconds (unkno wn) date) (unknown) (no (unknown) (unknown) 2 mg PO BEDTIME (units (unknown) date) Qty: 90 1RF unknown) (unknown) (no (unknown) (unknown) 25 mg PO DAILY (units (unknown) date) unknown) (unknown) (no (unknown) (unknown) 25 seconds (unkno wn) date) (unknown) (no (unknown) (unknown) 25 seconds (unkno wn) date) (unknown) (no (unknown) (unknown) 5 mg PO BID (units (un known) date) unknown) (unknown) (no (unknown) (unknown) 50 mg PO BID Qty: (units (unknown) date) 180 1RF unknown) (unknown) (no (unknown) (unknown) [id number] (units (unkno wn) date) unknown) (unknown) (no (unknown) (unknown) 5RF (units (unkno wn) date) unknown) (unknown) (no (unknown) (unknown) ABDOMEN: Soft, (units (unknown) date) nontender. unknown) Normoactive bowel sounds all 4 quadrants. No (unknown) (no (unknown) (unknown) Abdominal pain (units (unknown) date) unknown) (unknown) (no (unknown) (unknown) Age/Sex: 56 / F (units (unknown) date) unknown) (unknown) (no (unknown) (unknown) Allergic (units (unkno wn) date) dermatitis of unknown) eyelids of both eyes (unknown) (no (unknown) (unknown) Allergies (units (unkn own) date) unknown) (unknown) (no (unknown) (unknown) Allergy/AdvReac (units (unknown) date) Type Severity unknown) Reaction Status Date / Time (unknown) (no (unknown) (unknown) Anemia (units (unkno wn) date) unknown) (unknown) (no (unknown) (unknown) Apply twice week (units (unknown) date) unknown) (unknown) (no (unknown) (unknown) Arthritis (units (unkn own) date) (Unknown) unknown) (unknown) (no (unknown) (unknown) Asthma (Unknown) (units (unknown) date) unknown) (unknown) (no (unknown) (unknown) Asthma (units (unkno wn) date) unknown) (unknown) (no (unknown) (unknown) Attestation: I (units (unknown) date) personally unknown) reviewed and interpreted this ECG as follows: (unknown) (no (unknown) (unknown) BNP [NT-proBNP (units (unknown) date) (BNP-Adult 18+)] unknown) Stat (unknown) (no (unknown) (unknown) Baso # (Auto) 100 (units (unknown) date) (0-100) /uL unknown) (unknown) (no (unknown) (unknown) Baso % (Auto) 0.6 (units (unknown) date) (0-2) % unknown) (unknown) (no (unknown) (unknown) Blood Pressure (units (unknown) date) 102/53 L 01/21/22 unknown) 14:40 (unknown) (no (unknown) (unknown) Blood Pressure (units (unknown) date) 102/53 L unknown) (unknown) (no (unknown) (unknown) CARDIOVASCULAR: (units (unknown) date) Regular rate and unknown) rhythm without murmurs, rubs or gallops. No (unknown) (no (unknown) (unknown) COPD (chronic (units ( unknown) date) obstructive unknown) pulmonary disease) (unknown) (no (unknown) (unknown) COVID19 -Nasal (units (unknown) date) RAPID/Pre-Proc unknown) Stat (unknown) (no (unknown) (unknown) CT abdomen pelvis (units (unknown) date) w con Stat unknown) (unknown) (no (unknown) (unknown) Carpal tunnel (units ( unknown) date) syndrome (-2017) unknown) (unknown) (no (unknown) (unknown) Chief complaint: (units (unknown) date) GI Bleed unknown) (unknown) (no (unknown) (unknown) Chronic atrial (units (unknown) date) fibrillation unknown) (unknown) (no (unknown) (unknown) Clinical (units (unkno wn) date) Impression: unknown) (unknown) (no (unknown) (unknown) Complete Blood (units (unknown) date) Count AUTO DIFF unknown) Stat (unknown) (no (unknown) (unknown) Comprehensive (units ( unknown) date) Metabolic Panel unknown) Stat (unknown) (no (unknown) (unknown) Cor pulmonale (units ( unknown) date) (chronic) unknown) (unknown) (no (unknown) (unknown) Course (units (unkno wn) date) unknown) (unknown) (no (unknown) (unknown) Crossmatch See (units (unknown) date) Detail unknown) (unknown) (no (unknown) (unknown) : 1965 (units (unknown) date) Acct:[id number] unknown) (unknown) (no (unknown) (unknown) Date of Service: (units (unknown) date) 01/21/22 unknown) (unknown) (no (unknown) (unknown) Departure (units (unkn own) date) unknown) (unknown) (no (unknown) (unknown) Depression not (units (unknown) date) appreciated. unknown) (unknown) (no (unknown) (unknown) Discharge Plan (units (unknown) date) unknown) (unknown) (no (unknown) (unknown) Discontinued (units (u nknown) date) Medications unknown) (unknown) (no (unknown) (unknown) ECG Data (units (unkno wn) date) unknown) (unknown) (no (unknown) (unknown) ED Orders (units (unkn own) date) unknown) (unknown) (no (unknown) (unknown) EKG-12 Lead Stat (units (unknown) date) unknown) (unknown) (no (unknown) (unknown) ER Physician: (units ( unknown) date) Lilian Armstrong D.O. unknown) (unknown) (no (unknown) (unknown) EXTREMITIES: (units (u nknown) date) Normal range of unknown) motion, no clubbing or edema. Neurovascularly (unknown) (no (unknown) (unknown) Eczema (units (unkno wn) date) unknown) (unknown) (no (unknown) (unknown) Emergency Report (units (unknown) date) unknown) (unknown) (no (unknown) (unknown) Eos # (Auto) 0 (units (unknown) date) (0-450) /uL unknown) (unknown) (no (unknown) (unknown) Eos % (Auto) 0.1 (units (unknown) date) L (2-4) % unknown) (unknown) (no (unknown) (unknown) Ethanol (ETOH) (units (unknown) date) Stat unknown) (unknown) (no (unknown) (unknown) Exam Narrative: (units (unknown) date) unknown) (unknown) (no (unknown) (unknown) Exam (units (unkno wn) date) unknown) (unknown) (no (unknown) (unknown) Family History (units (unknown) date) (Reviewed 01/21/22 unknown) @ 15:14 by Lilian Armstrong DO) (unknown) (no (unknown) (unknown) Fentanyl (units (unkno wn) date) (Fentanyl 100 unknown) Mcg/2 Ml Inj) 25 mcg IV NOW ONE (unknown) (no (unknown) (unknown) GENERAL: Alert (units (unknown) date) and oriented x unknown) three, pale, obese female in moderate distress. (unknown) (no (unknown) (unknown) GI bleed, (units (unkn own) date) Hypotension unknown) (unknown) (no (unknown) (unknown) : No CVA (units (unk nown) date) tenderness unknown) (unknown) (no (unknown) (unknown) General (units (unkno wn) date) unknown) (unknown) (no (unknown) (unknown) HEENT: Head (units (un known) date) normocephalic, unknown) atraumatic, EOMI, pupils reactive, positive for (unknown) (no (unknown) (unknown) HPI - GI Bleed (units (unknown) date) unknown) (unknown) (no (unknown) (unknown) HPI Narrative: (units (unknown) date) unknown) (unknown) (no (unknown) (unknown) Hct 12.8 L* (units (un known) date) (36-46) % unknown) (unknown) (no (unknown) (unknown) Hgb 3.9 L* (units (unk nown) date) (12.0-16.0) g/dL unknown) (unknown) (no (unknown) (unknown) History of (units (unk nown) date) Present Illness unknown) (unknown) (no (unknown) (unknown) History of (units (unk nown) date) hysterectomy for unknown) cancer (unknown) (no (unknown) (unknown) Home Medications (units (unknown) date) unknown) (unknown) (no (unknown) (unknown) Impetigo (units (unkno wn) date) unknown) (unknown) (no (unknown) (unknown) Incontinence (units (u nknown) date) unknown) (unknown) (no (unknown) (unknown) Initial Vital (units ( unknown) date) Signs unknown) (unknown) (no (unknown) (unknown) Initial Vital (units ( unknown) date) Signs: unknown) (unknown) (no (unknown) (unknown) Interpretation: (units (unknown) date) unknown) (unknown) (no (unknown) (unknown) [facility] (units (unknown) date) [address] unknown) [place] [address] (unknown) (no (unknown) (unknown) Lab Data (units (unkno wn) date) unknown) (unknown) (no (unknown) (unknown) Lab Results (units (un known) date) unknown) (unknown) (no (unknown) (unknown) Labs: (units (unkno wn) date) unknown) (unknown) (no (unknown) (unknown) Limitations: no (units (unknown) date) limitations unknown) (unknown) (no (unknown) (unknown) Lymph # (Auto) (units (unknown) date) 1700 ([id number]) unknown) /uL (unknown) (no (unknown) (unknown) Lymph % (Auto) (units (unknown) date) 14.7 L (25-40) % unknown) (unknown) (no (unknown) (unknown) MCH 23.0 L (units (unk nown) date) (26-34) PG unknown) (unknown) (no (unknown) (unknown) MCHC 30.3 (30-36) (units (unknown) date) % unknown) (unknown) (no (unknown) (unknown) MCV 75.9 L (units (unk nown) date) (80-100) fL unknown) (unknown) (no (unknown) (unknown) MDM - GI Bleed (units (unknown) date) unknown) (unknown) (no (unknown) (unknown) MDM Narrative (units ( unknown) date) unknown) (unknown) (no (unknown) (unknown) Medical History (units (unknown) date) (Reviewed 01/21/22 unknown) @ 15:14 by Lilian Armstrong DO) (unknown) (no (unknown) (unknown) Medical decision (units (unknown) date) making narrative: unknown) (unknown) (no (unknown) (unknown) Medication (units (unk nown) date) Instructions unknown) Recorded Confirmed (unknown) (no (unknown) (unknown) Medication (units (unk nown) date) Instructions unknown) Recorded (unknown) (no (unknown) (unknown) Lyon # (Auto) (units ( unknown) date) 1100 H (0-900) /uL unknown) (unknown) (no (unknown) (unknown) Lyon % (Auto) 9.7 (units (unknown) date) (3-14) % unknown) (unknown) (no (unknown) (unknown) Morbid obesity (units (unknown) date) due to excess unknown) calories (unknown) (no (unknown) (unknown) Mother (units (unknown) date) CVA (cerebral unknown) vascular accident) (unknown) (no (unknown) (unknown) NECK: Supple, (units ( unknown) date) full range of unknown) motion (unknown) (no (unknown) (unknown) NEUROLOGICAL: (units ( unknown) date) Cranial nerves II unknown) through XII grossly intact. Moving all (unknown) (no (unknown) (unknown) Narrative (units (unkn own) date) unknown) (unknown) (no (unknown) (unknown) Neut # (Auto) (units ( unknown) date) 8600 H (8826-2618) unknown) /uL (unknown) (no (unknown) (unknown) Neut % (Auto) (units ( unknown) date) 74.9 (50-75) % unknown) (unknown) (no (unknown) (unknown) No Action (units (unkn own) date) unknown) (unknown) (no (unknown) (unknown) Ondansetron HCl (units (unknown) date) (Ondansetron 4 unknown) Mg/2 Ml Inj) 4 mg IV NOW ONE (unknown) (no (unknown) (unknown) Ordered: (units (unkno wn) date) unknown) (unknown) (no (unknown) (unknown) Orders (units (unkno wn) date) unknown) (unknown) (no (unknown) (unknown) Oxygen Delivery (units (unknown) date) Method 01/21/22 unknown) 14:40 (unknown) (no (unknown) (unknown) Oxygen Delivery (units (unknown) date) Method Room Air unknown) (unknown) (no (unknown) (unknown) PRBC [Packed (units (u nknown) date) Cells] Stat unknown) (unknown) (no (unknown) (unknown) Pantoprazole (units (u nknown) date) Sodium unknown) (Pantoprazole 40 Mg Vial) 80 mg IV NOW ONE (unknown) (no (unknown) (unknown) Partial (units (unkno wn) date) Thromboplastin unknown) Time Stat (unknown) (no (unknown) (unknown) Patient History (units (unknown) date) unknown) (unknown) (no (unknown) (unknown) Patient: (units (unkno wn) date) Rosalba Pabon MR#: unknown) [id number] (unknown) (no (unknown) (unknown) Chung Mcdonald, (units (unknown) date) DO [Primary Care unknown) Provider] (unknown) (no (unknown) (unknown) Plt Count 331 (units ( unknown) date) (150-400) X103/uL unknown) (unknown) (no (unknown) (unknown) Prescriptions: (units (unknown) date) unknown) (unknown) (no (unknown) (unknown) Previous Rx's (units ( unknown) date) unknown) (unknown) (no (unknown) (unknown) Prothrombin Time (units (unknown) date) INR Stat unknown) (unknown) (no (unknown) (unknown) Pulmonary (units (unkn own) date) hypertension unknown) (unknown) (no (unknown) (unknown) Pulse Oximetry 96 (units (unknown) date) 01/21/22 14:40 unknown) (unknown) (no (unknown) (unknown) Pulse Oximetry 96 (units (unknown) date) unknown) (unknown) (no (unknown) (unknown) Pulse Rate 105 H (units (unknown) date) 01/21/22 14:40 unknown) (unknown) (no (unknown) (unknown) Pulse Rate 105 H (units (unknown) date) unknown) (unknown) (no (unknown) (unknown) RBC 1.68 L (units (unk nown) date) (4.0-5.2) X106/uL unknown) (unknown) (no (unknown) (unknown) RDW 21.9 H (units (unk nown) date) (11.6-14.8) % unknown) (unknown) (no (unknown) (unknown) RESPIRATORY: (units (u nknown) date) Breath sounds unknown) equal bilaterally, no wheezes rales or rhonchi. (unknown) (no (unknown) (unknown) ROS Unobtainable: (units (unknown) date) All systems unknown) reviewed + are unremarkable except as noted in HPI (unknown) (no (unknown) (unknown) Referrals: (units (unk nown) date) unknown) (unknown) (no (unknown) (unknown) Related Data (units (u nknown) date) unknown) (unknown) (no (unknown) (unknown) Respiratory Rate (units (unknown) date) 18 01/21/22 14:40 unknown) (unknown) (no (unknown) (unknown) Respiratory Rate (units (unknown) date) 18 unknown) (unknown) (no (unknown) (unknown) Restless leg (units (u nknown) date) syndrome unknown) (unknown) (no (unknown) (unknown) Result diagrams: (units (unknown) date) unknown) (unknown) (no (unknown) (unknown) Review of Systems (units (unknown) date) unknown) (unknown) (no (unknown) (unknown) Right-sided low (units (unknown) date) back pain with unknown) sciatica (unknown) (no (unknown) (unknown) Rx Instructions: (units (unknown) date) unknown) (unknown) (no (unknown) (unknown) SKIN: Warm, dry, (units (unknown) date) no petechiae, no unknown) rashes or lesions. (unknown) (no (unknown) (unknown) She does still (units (unknown) date) smoke, she drinks unknown) 2-3 white claws daily, no illicit. She is (unknown) (no (unknown) (unknown) Signed By: (units (unk nown) date) unknown) (unknown) (no (unknown) (unknown) Sinus tachycardia (units (unknown) date) rate of 110 VT 146 unknown) QRS 88 QTC 481. No acute ST elevation. (unknown) (no (unknown) (unknown) Smoking Status: (units (unknown) date) Current every day unknown) smoker (unknown) (no (unknown) (unknown) Social History (units (unknown) date) (Reviewed 01/21/22 unknown) @ 15:14 by Lilian Armstrong DO) (unknown) (no (unknown) (unknown) Source: patient (units (unknown) date) unknown) (unknown) (no (unknown) (unknown) Spiriva with (units (u nknown) date) HandiHaler 18 mcg unknown) capsule, w/inhalation device (unknown) (no (unknown) (unknown) Staph skin (units (unk nown) date) infection unknown) (unknown) (no (unknown) (unknown) Stated complaint: (units (unknown) date) Coffee ground unknown) emesis, CHF, +thinners (unknown) (no (unknown) (unknown) Stop: 01/21/22 (units (unknown) date) 14:56 unknown) (unknown) (no (unknown) (unknown) Stop: 01/21/22 (units (unknown) date) 15:06 unknown) (unknown) (no (unknown) (unknown) Substance Use (units ( unknown) date) Type: does not use unknown) (unknown) (no (unknown) (unknown) Surgical History (units (unknown) date) (Reviewed 01/21/22 unknown) @ 15:14 by Lilian Armstrong DO) (unknown) (no (unknown) (unknown) Tachycardia (units (un known) date) unknown) (unknown) (no (unknown) (unknown) This is a (units (unkno wn) date) 56-year-old female unknown) who comes in with complaint of melanotic stools and (unknown) (no (unknown) (unknown) This is a (units (unkn own) date) 56-year-old female unknown) with history of pulmonary hypertension, COPD, CHF, (unknown) (no (unknown) (unknown) Time Seen by (units (u nknown) date) Provider: 01/21/22 unknown) 14:54 (unknown) (no (unknown) (unknown) Troponin + CK (units ( unknown) date) Cardiac Panel Stat unknown) (unknown) (no (unknown) (unknown) Type and Screen (units (unknown) date) Stat unknown) (unknown) (no (unknown) (unknown) Vital Signs - 8 (units (unknown) date) hr unknown) (unknown) (no (unknown) (unknown) Vital Signs (units (un known) date) unknown) (unknown) (no (unknown) (unknown) Vital signs: (units (u nknown) date) unknown) (unknown) (no (unknown) (unknown) WBC 11.5 H (units (unk nown) date) (4.5-11.0) X103/uL unknown) (unknown) (no (unknown) (unknown) XR chest 1V Stat (units (unknown) date) unknown) (unknown) (no (unknown) (unknown) Xarelto. (units (unkno wn) date) unknown) (unknown) (no (unknown) (unknown) [Embedded Image (units (unknown) date) Not Available] unknown) (unknown) (no (unknown) (unknown) [From NASONEX] (units (unknown) date) unknown) (unknown) (no (unknown) (unknown) aerosol inhaler (units (unknown) date) (Ventolin HFA) unknown) shortness of breath or wheezing (unknown) (no (unknown) (unknown) albuterol sulfate (units (unknown) date) 90 mcg/actuation 1 unknown) puff inhalation Q6H PRN 11/14/21 (unknown) (no (unknown) (unknown) albuterol sulfate (units (unknown) date) [Ventolin HFA] 90 unknown) mcg/actuation HFA aerosol inhaler (unknown) (no (unknown) (unknown) alcohol intake (units (unknown) date) frequency: 3 or unknown) more drinks per day (unknown) (no (unknown) (unknown) alcohol intake: (units (unknown) date) current unknown) (unknown) (no (unknown) (unknown) amlodipine 5 mg (units (unknown) date) tablet 5 mg PO BID unknown) 01/02/22 01/02/22 (unknown) (no (unknown) (unknown) amlodipine 5 mg (units (unknown) date) tablet unknown) (unknown) (no (unknown) (unknown) amoxicillin 875 (units (unknown) date) mg-potassium 1 tab unknown) PO Q12H #20 tabs 05/25/21 (unknown) (no (unknown) (unknown) amoxicillin-pot (units (unknown) date) clavulanate unknown) [Augmentin] 875-125 mg tablet (unknown) (no (unknown) (unknown) and below (units (unkn own) date) unknown) (unknown) (no (unknown) (unknown) angustifolia) (units ( unknown) date) sinus unknown) (unknown) (no (unknown) (unknown) atrial (units (unkno wn) date) fibrillation on unknown) Xarelto with complaint of coffee-ground emesis and (unknown) (no (unknown) (unknown) been taking (units (un known) date) ibuprofen 8 unknown) tablets of 200 mg ibuprofen. (unknown) (no (unknown) (unknown) breath. She is (units (unknown) date) had nausea and unknown) vomiting she states she is thrown up 5 times (unknown) (no (unknown) (unknown) breathe (units (unkno wn) date) unknown) (unknown) (no (unknown) (unknown) breathing (units (unkn own) date) unknown) (unknown) (no (unknown) (unknown) cannot (units (unkno wn) date) unknown) (unknown) (no (unknown) (unknown) clavulanate 125 (units (unknown) date) mg tablet unknown) (unknown) (no (unknown) (unknown) clobetasol 0.05 % (units (unknown) date) scalp solution 1 unknown) applic topical BEDTIME #25 mL 03/03/21 (unknown) (no (unknown) (unknown) clobetasol 0.05 % (units (unknown) date) solution unknown) (unknown) (no (unknown) (unknown) closes, (units (unkno wn) date) unknown) (unknown) (no (unknown) (unknown) coffee-ground (units ( unknown) date) emesis that has unknown) been intermittent over time. Patient is (unknown) (no (unknown) (unknown) congestion (units (unk nown) date) unknown) (unknown) (no (unknown) (unknown) conjunctival (units (u nknown) date) pallor face unknown) symmetric, moist mucous membranes (unknown) (no (unknown) (unknown) extremities (units (un known) date) unknown) (unknown) (no (unknown) (unknown) grass pollen (units (u nknown) date) Allergy sinus unknown) Verified 01/02/22 13:27 (unknown) (no (unknown) (unknown) guarding or (units (un known) date) rebound, rigidity, unknown) no mass, positive stool occult with black stool. (unknown) (no (unknown) (unknown) has resolved when (units (unknown) date) she is not unknown) exerting herself as well as feels actively short of (unknown) (no (unknown) (unknown) intact (units (unkno wn) date) unknown) (unknown) (no (unknown) (unknown) lavender (units (unkno wn) date) (Lavandula Allergy unknown) severe Verified 01/02/22 13:27 (unknown) (no (unknown) (unknown) like since (units (unk nown) date) Wednesday. Patient unknown) denies any swelling of extremities. She is had a (unknown) (no (unknown) (unknown) melanotic stools (units (unknown) date) since Wednesday or unknown) Wednesday the 18 of January. Patient also notes (unknown) (no (unknown) (unknown) metoprolol (units (unk nown) date) succinate 50 mg 50 unknown) mg PO BID #180 tabs 01/02/22 (unknown) (no (unknown) (unknown) metoprolol (units (unk nown) date) succinate 50 mg unknown) tablet extended release 24 hr (unknown) (no (unknown) (unknown) mild leukocytosis (units (unknown) date) and appropriate unknown) platelets. Patient is anticoagulated on (unknown) (no (unknown) (unknown) mometasone (units (unk nown) date) furoate Allergy unknown) Unknown Verified 01/02/22 13:27 (unknown) (no (unknown) (unknown) not felt well she (units (unknown) date) is felt unknown) increasingly fatigued lightheaded like she is going to (unknown) (no (unknown) (unknown) pass out she has (units (unknown) date) not had actual unknown) syncope, she has had some chest pressure which (unknown) (no (unknown) (unknown) pine tanya Allergy (units (unknown) date) Severe throat unknown) Uncoded 01/02/22 13:27 (unknown) (no (unknown) (unknown) pramipexole 0.25 (units (unknown) date) mg tablet 0.25 mg unknown) PO BEDTIME #90 tabs 01/02/22 (unknown) (no (unknown) (unknown) pramipexole (units (un known) date) [Mirapex] 0.25 mg unknown) tablet (unknown) (no (unknown) (unknown) prior complete (units ( unknown) date) hysterectomy, she unknown) is supposed to be seen for EGD and colonoscopy. (unknown) (no (unknown) (unknown) puncture 1 cap (units (unknown) date) using device; one unknown) dose = 2 inhalations (unknown) (no (unknown) (unknown) quit status: has (units (unknown) date) quit before unknown) (unknown) (no (unknown) (unknown) release 24 hr (units ( unknown) date) (Detrol LA) unknown) (unknown) (no (unknown) (unknown) she was having (units (unknown) date) episodes at least unknown) a couple weeks ago. Patient has noted she has (unknown) (no (unknown) (unknown) since Wednesday. She (units (unknown) date) has had multiple unknown) lack stools that she describes as diarrhea (unknown) (no (unknown) (unknown) spironolactone 25 (units (unknown) date) mg tablet 25 mg PO unknown) DAILY 03/03/21 01/02/22 (unknown) (no (unknown) (unknown) spironolactone 25 (units (unknown) date) mg tablet unknown) (unknown) (no (unknown) (unknown) swelling (units (unkno wn) date) bilateral lower unknown) extremities. (unknown) (no (unknown) (unknown) swelling, (units (unkn own) date) unknown) (unknown) (no (unknown) (unknown) tablet,extended (units (unknown) date) release 24 hr unknown) (unknown) (no (unknown) (unknown) tachycardic (units (un known) date) hypotensive quite unknown) pale. Initial labs show a hemoglobin of 3.9, with (unknown) (no (unknown) (unknown) tiotropium (units (unk nown) date) bromide 18 mcg unknown) capsule 1 cap inhalation DAILY #90 10/28/20 (unknown) (no (unknown) (unknown) tobacco type: (units ( unknown) date) cigarettes unknown) (unknown) (no (unknown) (unknown) tolterodine 2 mg (units (unknown) date) capsule,extended 2 unknown) mg PO BEDTIME #90 caps 01/02/22 (unknown) (no (unknown) (unknown) tolterodine (units (un known) date) [Detrol LA] 2 mg unknown) capsule,extended release 24hr (unknown) (no (unknown) (unknown) trouble (units (unkno wn) date) unknown) (unknown) (no (unknown) (unknown) with HandiHaler) (units (unknown) date) unknown) (unknown) (no (unknown) (unknown) with inhalation (units (unknown) date) device (Spiriva unknown) inhalations Result panel 11 (unknown) (no date) (unknown) (unknown) 0 /ul (unkn own) (unknown) (no date) (unknown) (unknown) 0.1 % (unkn own) (unknown) (no date) (unknown) (unknown) 0.6 % (unkn own) (unknown) (no date) (unknown) (unknown) 1 (units unknown) (unknown) (unknown) (no date) (unknown) (unknown) 1.68 x10 6/ul (unkn own) (unknown) (no date) (unknown) (unknown) 100 /ul (unkn own) (unknown) (no date) (unknown) (unknown) 11.5 x10 3/ul (unkn own) (unknown) (no date) (unknown) (unknown) 1100 /ul (unkn own) (unknown) (no date) (unknown) (unknown) 12.8 % (unkn own) (unknown) (no date) (unknown) (unknown) 12.8 % (unkn own) (unknown) (no date) (unknown) (unknown) 14.7 % (unkn own) (unknown) (no date) (unknown) (unknown) 1700 /ul (unkn own) (unknown) (no date) (unknown) (unknown) 2 (units unknown) (unknown) (unknown) (no date) (unknown) (unknown) 21.9 % (unkn own) (unknown) (no date) (unknown) (unknown) 23.0 pg (unkn own) (unknown) (no date) (unknown) (unknown) 3 (units unknown) (unknown) (unknown) (no date) (unknown) (unknown) 3.9 g/dl (unkn own) (unknown) (no date) (unknown) (unknown) 3.9 g/dl (unkn own) (unknown) (no date) (unknown) (unknown) 30.3 % (unkn own) (unknown) (no date) (unknown) (unknown) 331 x10 3/ul (unkn own) (unknown) (no date) (unknown) (unknown) 74.9 % (unkn own) (unknown) (no date) (unknown) (unknown) 75.9 fl (unkn own) (unknown) (no date) (unknown) (unknown) 8600 /ul (unkn own) (unknown) (no date) (unknown) (unknown) 9.7 % (unkn own) Result panel 12 (unknown) (no date) (unknown) (unknown) < 10 mg/dl (unkn own) (unknown) (no date) (unknown) (unknown) < 10 mg/dl (unkn own) Result panel 13 (unknown) (no date) (unknown) (unknown) > 60 ml/min (unkn own) (unknown) (no date) (unknown) (unknown) > 60 ml/min (unkn own) (unknown) (no date) (unknown) (unknown) 0.4 mg/dl (unkn own) (unknown) (no date) (unknown) (unknown) 0.78 mg/dl (unkn own) (unknown) (no date) (unknown) (unknown) 1.2 (units (unkn own) unknown) (unknown) (no date) (unknown) (unknown) 100 mmol/l (unkn own) (unknown) (no date) (unknown) (unknown) 113 mg/dl (unkn own) (unknown) (no date) (unknown) (unknown) 113 mg/dl (unkn own) (unknown) (no date) (unknown) (unknown) 135 mmol/l (unkn own) (unknown) (no date) (unknown) (unknown) 14 iu/l (unkn own) (unknown) (no date) (unknown) (unknown) 2.5 g/dl (unkn own) (unknown) (no date) (unknown) (unknown) 2.9 g/dl (unkn own) (unknown) (no date) (unknown) (unknown) 28 mmol/l (unkn own) (unknown) (no date) (unknown) (unknown) 3.6 mmol/l (unkn own) (unknown) (no date) (unknown) (unknown) 37 mg/dl (unkn own) (unknown) (no date) (unknown) (unknown) 39 u/l (unkn own) (unknown) (no date) (unknown) (unknown) 41 u/l (unkn own) (unknown) (no date) (unknown) (unknown) 45 iu/l (unkn own) (unknown) (no date) (unknown) (unknown) 47.4 (units (unkn own) unknown) (unknown) (no date) (unknown) (unknown) 5.4 g/dl (unkn own) (unknown) (no date) (unknown) (unknown) 7.9 mg/dl (unkn own) (unknown) (no date) (unknown) (unknown) Test not % (unkn own) performed (unknown) (no date) (unknown) (unknown) Test not % (unkn own) performed (unknown) (no date) (unknown) (unknown) Test not ng/ml (unkn own) performed (unknown) (no date) (unknown) (unknown) Test not ng/ml (unkn own) performed Result panel 14 (unknown) (no date) (unknown) (unknown) Negative (units (unkn own) unknown) (unknown) (no date) (unknown) (unknown) Negative (units (unkn own) unknown) Result panel 15 (unknown) (no date) (unknown) (unknown) < 0.012 ng/ml (unkn own) (unknown) (no date) (unknown) (unknown) < 0.012 ng/ml (unkn own) (unknown) (no date) (unknown) (unknown) 41 u/l (unkn own) (unknown) (no date) (unknown) (unknown) 637 pg/ml (unkn own) (unknown) (no date) (unknown) (unknown) 637 pg/ml (unkn own) (unknown) (no date) (unknown) (unknown) Test not % (unkn own) performed (unknown) (no date) (unknown) (unknown) Test not % (unkn own) performed (unknown) (no date) (unknown) (unknown) Test not ng/ml (unkn own) performed (unknown) (no date) (unknown) (unknown) Test not ng/ml (unkn own) performed Result panel 16 (unknown) (no (unknown) (unknown) (no value) (units (unk nown) date) unknown) (unknown) (no (unknown) (unknown) #18 grams (units (unkn own) date) unknown) (unknown) (no (unknown) (unknown) (Augmentin) (units (un known) date) unknown) (unknown) (no (unknown) (unknown) (Mirapex) (units (unkn own) date) unknown) (unknown) (no (unknown) (unknown) 0.25 mg PO (units (unk nown) date) BEDTIME Qty: 90 unknown) 1RF (unknown) (no (unknown) (unknown) 05/25/21 (units (unkno wn) date) unknown) (unknown) (no (unknown) (unknown) 09/14/18 (units (unkno wn) date) unknown) (unknown) (no (unknown) (unknown) 10/08/19 (units (unkno wn) date) unknown) (unknown) (no (unknown) (unknown) 10/11/19 (units (unkno wn) date) unknown) (unknown) (no (unknown) (unknown) 10/22/20 (units (unkno wn) date) unknown) (unknown) (no (unknown) (unknown) 11/16/19 (units (unkno wn) date) unknown) (unknown) (no (unknown) (unknown) 11/15/20 (units (unkno wn) date) unknown) (unknown) (no (unknown) (unknown) 12/04/20 (units (unkno wn) date) unknown) (unknown) (no (unknown) (unknown) 1 applic topical (units (unknown) date) BEDTIME Qty: 25 unknown) 0RF (unknown) (no (unknown) (unknown) 1 cap inhalation (units (unknown) date) DAILY Qty: 90 1RF unknown) (unknown) (no (unknown) (unknown) 1 puff INHALATION (units (unknown) date) Q6H PRN (Reason: unknown) shortness of breath or wheezing) Qty: 18 (unknown) (no (unknown) (unknown) 1 tab PO Q12H (units ( unknown) date) Qty: 20 0RF unknown) (unknown) (no (unknown) (unknown) 1. Sigmoid (units (unk nown) date) diverticulosis unknown) without evidence of acute diverticulitis.? No bowel (unknown) (no (unknown) (unknown) 01/21/22 01/21/22 (units (unknown) date) 01/21/22 unknown) Range/Units (unknown) (no (unknown) (unknown) 01/21/22 14:50 (units (unknown) date) unknown) (unknown) (no (unknown) (unknown) 01/21/22 14:53 (units (unknown) date) unknown) (unknown) (no (unknown) (unknown) 01/21/22 14:54 (units (unknown) date) unknown) (unknown) (no (unknown) (unknown) 01/21/22 15:05 (units (unknown) date) unknown) (unknown) (no (unknown) (unknown) 01/21/22 (units (unkno wn) date) Range/Units unknown) (unknown) (no (unknown) (unknown) 01/21/22 (units (unkno wn) date) unknown) (unknown) (no (unknown) (unknown) [address] [place] [address] (units (unknown) date) unknown) (unknown) (no (unknown) (unknown) 14:40 01/21/22 (units (unknown) date) unknown) (unknown) (no (unknown) (unknown) 14:50 14:50 14:50 (units (unknown) date) unknown) (unknown) (no (unknown) (unknown) 14:50 (units (unkno wn) date) unknown) (unknown) (no (unknown) (unknown) 14:55 01/21/22 (units (unknown) date) unknown) (unknown) (no (unknown) (unknown) 15:00 (units (unkno wn) date) unknown) (unknown) (no (unknown) (unknown) 15:23 01/21/22 (units (unknown) date) unknown) (unknown) (no (unknown) (unknown) 15:24 01/21/22 (units (unknown) date) unknown) (unknown) (no (unknown) (unknown) 15:24 (units (unkno wn) date) unknown) (unknown) (no (unknown) (unknown) 15:30 01/21/22 (units (unknown) date) unknown) (unknown) (no (unknown) (unknown) 15:38 (units (unkno wn) date) unknown) (unknown) (no (unknown) (unknown) 2 mg PO BEDTIME (units (unknown) date) Qty: 90 1RF unknown) (unknown) (no (unknown) (unknown) 2. Hepatic (units (unk nown) date) steatosis, no unknown) discrete hepatic lesion. (unknown) (no (unknown) (unknown) 25 mg PO DAILY (units (unknown) date) unknown) (unknown) (no (unknown) (unknown) 3. Degenerative (units (unknown) date) disc disease unknown) throughout lower thoracic and lumbar spine.? No (unknown) (no (unknown) (unknown) 5 mg PO BID (units (un known) date) unknown) (unknown) (no (unknown) (unknown) 50 mg PO BID Qty: (units (unknown) date) 180 1RF unknown) (unknown) (no (unknown) (unknown) [id number] (units (unkno wn) date) unknown) (unknown) (no (unknown) (unknown) 5RF (units (unkno wn) date) unknown) (unknown) (no (unknown) (unknown) ? (units (unkno wn) date) unknown) (unknown) (no (unknown) (unknown) ABDOMEN: Soft, (units (unknown) date) nontender. unknown) Normoactive bowel sounds all 4 quadrants. No (unknown) (no (unknown) (unknown) ABDOMEN: (units (unkno wn) date) unknown) (unknown) (no (unknown) (unknown) ALT (<35) IU/L (units (unknown) date) unknown) (unknown) (no (unknown) (unknown) ALT 14 (<35) IU/L (units (unknown) date) unknown) (unknown) (no (unknown) (unknown) APTT (26-36) (units (u nknown) date) SECONDS unknown) (unknown) (no (unknown) (unknown) APTT 25 L (26-36) (units (unknown) date) SECONDS unknown) (unknown) (no (unknown) (unknown) AST (14-36) IU/L (units (unknown) date) unknown) (unknown) (no (unknown) (unknown) AST 45 H (14-36) (units (unknown) date) IU/L unknown) (unknown) (no (unknown) (unknown) Abdomen (units (unkno wn) date) Ultrasound unknown) (Signed) (unknown) (no (unknown) (unknown) Abdomen/Pelvis CT (units (unknown) date) (Signed) unknown) (unknown) (no (unknown) (unknown) Abdominal Nodes:? (units (unknown) date) No retroperitoneal unknown) or mesenteric adenopathy by size criteria.? (unknown) (no (unknown) (unknown) Abdominal pain (units (unknown) date) unknown) (unknown) (no (unknown) (unknown) Accession Number: (units (unknown) date) [id number] ?? unknown) (unknown) (no (unknown) (unknown) Accession Number: (units (unknown) date) [id number] ?? unknown) (unknown) (no (unknown) (unknown) Acct:[id number] (units (unknown) date) unknown) (unknown) (no (unknown) (unknown) Adrenal Glands:? (units (unknown) date) Unremarkable.? ? unknown) (unknown) (no (unknown) (unknown) After the (units (unkn own) date) administration of unknown) intravenous contrast, axial sections acquired from (unknown) (no (unknown) (unknown) Age/Sex: 56 / F (units (unknown) date) unknown) (unknown) (no (unknown) (unknown) Albumin (3.5-5.0) (units (unknown) date) g/dL unknown) (unknown) (no (unknown) (unknown) Albumin 2.9 L (units ( unknown) date) (3.5-5.0) g/dL unknown) (unknown) (no (unknown) (unknown) Albumin/Globulin (units (unknown) date) Ratio (1.0-2.8) unknown) (unknown) (no (unknown) (unknown) Albumin/Globulin (units (unknown) date) Ratio 1.2 unknown) (1.0-2.8) (unknown) (no (unknown) (unknown) Alkaline (units (unkno wn) date) Phosphatase unknown) (38-126) U/L (unknown) (no (unknown) (unknown) Alkaline (units (unkno wn) date) Phosphatase 39 unknown) (38-126) U/L (unknown) (no (unknown) (unknown) Allergic (units (unkno wn) date) dermatitis of unknown) eyelids of both eyes (unknown) (no (unknown) (unknown) Allergies (units (unkn own) date) unknown) (unknown) (no (unknown) (unknown) Allergy/AdvReac (units (unknown) date) Type Severity unknown) Reaction Status Date / Time (unknown) (no (unknown) (unknown) [place], [place] (units ( unknown) date) [id number] unknown) (unknown) (no (unknown) (unknown) Anemia (units (unkno wn) date) unknown) (unknown) (no (unknown) (unknown) Anisocytosis 2+ H (units (unknown) date) unknown) (unknown) (no (unknown) (unknown) Anisocytosis (units (u nknown) date) unknown) (unknown) (no (unknown) (unknown) Apply twice week (units (unknown) date) unknown) (unknown) (no (unknown) (unknown) Approved by: Augustus Orozcounits (unknown) date) Kyra Aguirre on unknown) 01/21/2022 at 15:30?? (unknown) (no (unknown) (unknown) Arthritis (units (unkn own) date) (Unknown) unknown) (unknown) (no (unknown) (unknown) Asthma (Unknown) (units (unknown) date) unknown) (unknown) (no (unknown) (unknown) Asthma (units (unkno wn) date) unknown) (unknown) (no (unknown) (unknown) Attestation: I (units (unknown) date) personally unknown) reviewed and interpreted this ECG as follows: (unknown) (no (unknown) (unknown) BNP [NT-proBNP (units (unknown) date) (BNP-Adult 18+)] unknown) Stat (unknown) (no (unknown) (unknown) BUN (7-17) mg/dL (units (unknown) date) unknown) (unknown) (no (unknown) (unknown) BUN 37 H (7-17) (units (unknown) date) mg/dL unknown) (unknown) (no (unknown) (unknown) BUN/Creatinine (units (unknown) date) Ratio (6-22) unknown) (unknown) (no (unknown) (unknown) BUN/Creatinine (units (unknown) date) Ratio 47.4 H unknown) (6-22) (unknown) (no (unknown) (unknown) Baso # (Auto) (units ( unknown) date) (0-100) /uL unknown) (unknown) (no (unknown) (unknown) Baso # (Auto) 100 (units (unknown) date) (0-100) /uL unknown) (unknown) (no (unknown) (unknown) Baso % (Auto) (units ( unknown) date) (0-2) % unknown) (unknown) (no (unknown) (unknown) Baso % (Auto) 0.6 (units (unknown) date) (0-2) % unknown) (unknown) (no (unknown) (unknown) Biliary ducts:? (units (unknown) date) Unremarkable.? ? unknown) (unknown) (no (unknown) (unknown) Bladder:? (units (unkn own) date) Unremarkable.? ? unknown) (unknown) (no (unknown) (unknown) Blood Pressure (units (unknown) date) 102/53 L 01/21/22 unknown) 14:40 (unknown) (no (unknown) (unknown) Blood Pressure (units (unknown) date) 102/53 L unknown) (unknown) (no (unknown) (unknown) Blood Pressure (units (unknown) date) 104/51 L unknown) (unknown) (no (unknown) (unknown) Blood Pressure (units (unknown) date) 105/51 L unknown) (unknown) (no (unknown) (unknown) Blood Pressure (units (unknown) date) 113/51 L unknown) (unknown) (no (unknown) (unknown) Bones and chest (units (unknown) date) wall:? No unknown) suspicious bony lesions.? Overlying soft tissues (unknown) (no (unknown) (unknown) Bones:? No (units (unk nown) date) suspicious bony unknown) lesion.? No acute vertebral body compression (unknown) (no (unknown) (unknown) CARDIOVASCULAR: (units (unknown) date) Regular rate and unknown) rhythm without murmurs, rubs or gallops. No (unknown) (no (unknown) (unknown) CK-MB (CK-2) Rel (units (unknown) date) Index TNP unknown) (unknown) (no (unknown) (unknown) CK-MB (CK-2) Rel (units (unknown) date) Index unknown) (unknown) (no (unknown) (unknown) CK-MB (CK-2) TNP (units (unknown) date) unknown) (unknown) (no (unknown) (unknown) CK-MB (CK-2) (units (u nknown) date) unknown) (unknown) (no (unknown) (unknown) COMPARISON:? (units (u nknown) date) [facility], unknown) CR, XR CHEST 1V, 05/25/2021, 11:07. (unknown) (no (unknown) (unknown) COMPARISON:? (units (u nknown) date) None. unknown) (unknown) (no (unknown) (unknown) COPD (chronic (units ( unknown) date) obstructive unknown) pulmonary disease) (unknown) (no (unknown) (unknown) COVID19 -[facility] (units (unknown) date) RAPID/Pre-Proc unknown) Stat (unknown) (no (unknown) (unknown) CT Scan Report (units (unknown) date) unknown) (unknown) (no (unknown) (unknown) CT abdomen pelvis (units (unknown) date) w con Stat unknown) (unknown) (no (unknown) (unknown) CT scan - (units (unkn own) date) abdomen/pelvis: unknown) (unknown) (no (unknown) (unknown) Calcium (units (unkno wn) date) (8.4-10.2) mg/dL unknown) (unknown) (no (unknown) (unknown) Calcium 7.9 L (units ( unknown) date) (8.4-10.2) mg/dL unknown) (unknown) (no (unknown) (unknown) Carbon Dioxide (units (unknown) date) (22-32) mmol/L unknown) (unknown) (no (unknown) (unknown) Carbon Dioxide 28 (units (unknown) date) (22-32) mmol/L unknown) (unknown) (no (unknown) (unknown) Carpal tunnel (units ( unknown) date) syndrome (-2017) unknown) (unknown) (no (unknown) (unknown) Chest X-Ray (units (un known) date) (Signed) unknown) (unknown) (no (unknown) (unknown) Chest x-ray: (units (u nknown) date) unknown) (unknown) (no (unknown) (unknown) Chief complaint: (units (unknown) date) GI Bleed unknown) (unknown) (no (unknown) (unknown) Chloride (98-107) (units (unknown) date) mmol/L unknown) (unknown) (no (unknown) (unknown) Chloride 100 (units (u nknown) date) (98-107) mmol/L unknown) (unknown) (no (unknown) (unknown) Chronic atrial (units (unknown) date) fibrillation unknown) (unknown) (no (unknown) (unknown) Clinical (units (unkno wn) date) Impression: unknown) (unknown) (no (unknown) (unknown) Close (units (unkno wn) date) unknown) (unknown) (no (unknown) (unknown) Complete Blood (units (unknown) date) Count AUTO DIFF unknown) Stat (unknown) (no (unknown) (unknown) Comprehensive (units ( unknown) date) Metabolic Panel unknown) Stat (unknown) (no (unknown) (unknown) Cor pulmonale (units ( unknown) date) (chronic) unknown) (unknown) (no (unknown) (unknown) Course (units (unkno wn) date) unknown) (unknown) (no (unknown) (unknown) Creatinine (units (unk nown) date) (0.52-1.04) mg/dL unknown) (unknown) (no (unknown) (unknown) Creatinine 0.78 (units (unknown) date) (0.52-1.04) mg/dL unknown) (unknown) (no (unknown) (unknown) Crossmatch See (units (unknown) date) Detail unknown) (unknown) (no (unknown) (unknown) Crossmatch (units (unk nown) date) unknown) (unknown) (no (unknown) (unknown) : 1965 (units (unknown) date) Acct:[id number] unknown) (unknown) (no (unknown) (unknown) : 1965 (units (unknown) date) unknown) (unknown) (no (unknown) (unknown) Date of Service: (units (unknown) date) 01/21/22 unknown) (unknown) (no (unknown) (unknown) Departure (units (unkn own) date) unknown) (unknown) (no (unknown) (unknown) Depression not (units (unknown) date) appreciated. unknown) (unknown) (no (unknown) (unknown) Dictated by: Augustus (units (unknown) date) Kyra Aguirre on unknown) 01/21/2022 at 15:27 ? ? (unknown) (no (unknown) (unknown) Dictated by: Augustus (units (unknown) date) Kyra Aguirre on unknown) 01/21/2022 at 15:30 ? ? (unknown) (no (unknown) (unknown) Discharge Plan (units (unknown) date) unknown) (unknown) (no (unknown) (unknown) Discontinued (units (u nknown) date) Medications unknown) (unknown) (no (unknown) (unknown) Documented By: KP (units (unknown) date) unknown) (unknown) (no (unknown) (unknown) ECG Data (units (unkno wn) date) unknown) (unknown) (no (unknown) (unknown) ED Orders (units (unkn own) date) unknown) (unknown) (no (unknown) (unknown) EKG Rpt. (units (unkno wn) date) unknown) (unknown) (no (unknown) (unknown) EKG-12 Lead Stat (units (unknown) date) unknown) (unknown) (no (unknown) (unknown) ER Physician: (units ( unknown) date) Lilian Armstrong D.O. unknown) (unknown) (no (unknown) (unknown) EXTREMITIES: (units (u nknown) date) Normal range of unknown) motion, no clubbing or edema. Neurovascularly (unknown) (no (unknown) (unknown) Eczema (units (unkno wn) date) unknown) (unknown) (no (unknown) (unknown) Emergency Report (units (unknown) date) unknown) (unknown) (no (unknown) (unknown) Eos # (Auto) (units (u nknown) date) (0-450) /uL unknown) (unknown) (no (unknown) (unknown) Eos # (Auto) 0 (units (unknown) date) (0-450) /uL unknown) (unknown) (no (unknown) (unknown) Eos % (Auto) (units (u nknown) date) (2-4) % unknown) (unknown) (no (unknown) (unknown) Eos % (Auto) 0.1 (units (unknown) date) L (2-4) % unknown) (unknown) (no (unknown) (unknown) Estimated GFR > (units (unknown) date) 60 (>60) mL/min unknown) (unknown) (no (unknown) (unknown) Estimated GFR (units ( unknown) date) (>60) mL/min unknown) (unknown) (no (unknown) (unknown) Ethanol (ETOH) (units (unknown) date) Stat unknown) (unknown) (no (unknown) (unknown) Ethyl Alcohol < (units (unknown) date) 10 ( - 10) mg/dL unknown) (unknown) (no (unknown) (unknown) Ethyl Alcohol ( - (units (unknown) date) 10) mg/dL unknown) (unknown) (no (unknown) (unknown) Exam Narrative: (units (unknown) date) unknown) (unknown) (no (unknown) (unknown) Exam (units (unkno wn) date) unknown) (unknown) (no (unknown) (unknown) FINDINGS:? (units (unk nown) date) unknown) (unknown) (no (unknown) (unknown) Face CT (Signed) (units (unknown) date) unknown) (unknown) (no (unknown) (unknown) Family History (units (unknown) date) (Reviewed 01/21/22 unknown) @ 15:14 by Lilian Armstrong DO) (unknown) (no (unknown) (unknown) Fentanyl (units (unkno wn) date) (Fentanyl 100 unknown) Mcg/2 Ml Inj) 25 mcg IV NOW ONE (unknown) (no (unknown) (unknown) For (units (unkno wn) date) unknown) (unknown) (no (unknown) (unknown) GENERAL: Alert (units (unknown) date) and oriented x unknown) three, pale, obese female in moderate distress. (unknown) (no (unknown) (unknown) GI bleed, (units (unkn own) date) Hypotension unknown) (unknown) (no (unknown) (unknown) : No CVA (units (unk nown) date) tenderness unknown) (unknown) (no (unknown) (unknown) Gallbladder:? (units ( unknown) date) Unremarkable. unknown) (unknown) (no (unknown) (unknown) General (units (unkno wn) date) unknown) (unknown) (no (unknown) (unknown) Globulin (units (unkno wn) date) (1.7-4.1) g/dL unknown) (unknown) (no (unknown) (unknown) Globulin 2.5 (units (u nknown) date) (1.7-4.1) g/dL unknown) (unknown) (no (unknown) (unknown) Glucose (70-100) (units (unknown) date) mg/dL unknown) (unknown) (no (unknown) (unknown) Glucose 113 H (units ( unknown) date) (70-100) mg/dL unknown) (unknown) (no (unknown) (unknown) HEENT: Head (units (un known) date) normocephalic, unknown) atraumatic, EOMI, pupils reactive, positive for (unknown) (no (unknown) (unknown) HPI - GI Bleed (units (unknown) date) unknown) (unknown) (no (unknown) (unknown) HPI Narrative: (units (unknown) date) unknown) (unknown) (no (unknown) (unknown) Hct (36-46) % (units ( unknown) date) unknown) (unknown) (no (unknown) (unknown) Hct 12.8 L* (units (un known) date) (36-46) % unknown) (unknown) (no (unknown) (unknown) Heart:? No (units (unk nown) date) significant unknown) findings. (unknown) (no (unknown) (unknown) Hgb (12.0-16.0) (units (unknown) date) g/dL unknown) (unknown) (no (unknown) (unknown) Hgb 3.9 L* (units (unk nown) date) (12.0-16.0) g/dL unknown) (unknown) (no (unknown) (unknown) History of (units (unk nown) date) Present Illness unknown) (unknown) (no (unknown) (unknown) History of (units (unk nown) date) hysterectomy for unknown) cancer (unknown) (no (unknown) (unknown) Home Medications (units (unknown) date) unknown) (unknown) (no (unknown) (unknown) Hypochromasia 3+ (units (unknown) date) H unknown) (unknown) (no (unknown) (unknown) Hypochromasia (units ( unknown) date) unknown) (unknown) (no (unknown) (unknown) IMPRESSION: (units (un known) date) unknown) (unknown) (no (unknown) (unknown) IMPRESSION:? No (units (unknown) date) focal infiltrate, unknown) pleural effusion or pneumothorax. (unknown) (no (unknown) (unknown) INDICATIONS:? Flu (units (unknown) date) like symptoms unknown) (unknown) (no (unknown) (unknown) INDICATIONS:? abd (units (unknown) date) pain, gi bleed unknown) (unknown) (no (unknown) (unknown) INR (0.9-1.3) (units ( unknown) date) unknown) (unknown) (no (unknown) (unknown) INR 1.6 H (units (unkn own) date) (0.9-1.3) unknown) (unknown) (no (unknown) (unknown) Image quality:? (units (unknown) date) Excellent.? unknown) (unknown) (no (unknown) (unknown) Imaging Data (units (u nknown) date) unknown) (unknown) (no (unknown) (unknown) Impetigo (units (unkno wn) date) unknown) (unknown) (no (unknown) (unknown) Incontinence (units (u nknown) date) unknown) (unknown) (no (unknown) (unknown) Initial Vital (units ( unknown) date) Signs unknown) (unknown) (no (unknown) (unknown) Initial Vital (units ( unknown) date) Signs: unknown) (unknown) (no (unknown) (unknown) Interpretation: (units (unknown) date) unknown) (unknown) (no (unknown) (unknown) [facility] (units (unknown) date) [address] unknown) [place] [address] (unknown) (no (unknown) (unknown) [facility] (units (unknown) date) unknown) (unknown) (no (unknown) (unknown) Kidneys and (units (un known) date) Ureters:? No unknown) stones or hydronephrosis.? No hydroureter. (unknown) (no (unknown) (unknown) Lab Data (units (unkno wn) date) unknown) (unknown) (no (unknown) (unknown) Lab Results (units (un known) date) unknown) (unknown) (no (unknown) (unknown) Labs: (units (unkno wn) date) unknown) (unknown) (no (unknown) (unknown) Last Admin: (units (un known) date) 01/21/22 15:31 unknown) Dose: 4 mg (unknown) (no (unknown) (unknown) Last Admin: (units (un known) date) 01/21/22 15:33 unknown) Dose: 25 mcg (unknown) (no (unknown) (unknown) Last Admin: (units (un known) date) 01/21/22 15:33 unknown) Dose: 80 mg (unknown) (no (unknown) (unknown) Launch?Image (units (u nknown) date) unknown) (unknown) (no (unknown) (unknown) Limitations: no (units (unknown) date) limitations unknown) (unknown) (no (unknown) (unknown) Augustus Aguirre (units (unkno wn) date) unknown) (unknown) (no (unknown) (unknown) Liver:? Liver is (units (unknown) date) normal in size.? unknown) Moderate hepatic steatosis is seen.? No (unknown) (no (unknown) (unknown) Loc: ED (units (unkno wn) date) unknown) (unknown) (no (unknown) (unknown) Lung bases:? (units (u nknown) date) Unremarkable. unknown) (unknown) (no (unknown) (unknown) Lungs and (units (unkn own) date) pleura:? Lungs are unknown) clear.? No pleural effusions or pneumothorax.? (unknown) (no (unknown) (unknown) Lymph # (Auto) (units (unknown) date) (2880-1777) /uL unknown) (unknown) (no (unknown) (unknown) Lymph # (Auto) (units (unknown) date) 1700 (2226-6432) unknown) /uL (unknown) (no (unknown) (unknown) Lymph % (Auto) (units (unknown) date) (25-40) % unknown) (unknown) (no (unknown) (unknown) Lymph % (Auto) (units (unknown) date) 14.7 L (25-40) % unknown) (unknown) (no (unknown) (unknown) MCH (26-34) PG (units (unknown) date) unknown) (unknown) (no (unknown) (unknown) MCH 23.0 L (units (unk nown) date) (26-34) PG unknown) (unknown) (no (unknown) (unknown) MCHC (30-36) % (units (unknown) date) unknown) (unknown) (no (unknown) (unknown) MCHC 30.3 (30-36) (units (unknown) date) % unknown) (unknown) (no (unknown) (unknown) MCV (80-100) fL (units (unknown) date) unknown) (unknown) (no (unknown) (unknown) MCV 75.9 L (units (unk nown) date) (80-100) fL unknown) (unknown) (no (unknown) (unknown) MDM - GI Bleed (units (unknown) date) unknown) (unknown) (no (unknown) (unknown) MDM Narrative (units ( unknown) date) unknown) (unknown) (no (unknown) (unknown) MR#: [id number] (units (unknown) date) unknown) (unknown) (no (unknown) (unknown) Mediastinum:? (units ( unknown) date) Mediastinal unknown) contours appear normal.? Heart size is enlarged.? (unknown) (no (unknown) (unknown) Medical History (units (unknown) date) (Reviewed 01/21/22 unknown) @ 15:14 by Lilian Armstrong DO) (unknown) (no (unknown) (unknown) Medical decision (units (unknown) date) making narrative: unknown) (unknown) (no (unknown) (unknown) Medication (units (unk nown) date) Instructions unknown) Recorded Confirmed (unknown) (no (unknown) (unknown) Medication (units (unk nown) date) Instructions unknown) Recorded (unknown) (no (unknown) (unknown) Miscellaneous: No (units (unknown) date) hernias are seen. unknown) ? ? (unknown) (no (unknown) (unknown) Moderate right (units (unknown) date) hip joint unknown) osteoarthritic changes are seen.? No evidence of (unknown) (no (unknown) (unknown) Lyon # (Auto) (units ( unknown) date) (0-900) /uL unknown) (unknown) (no (unknown) (unknown) Lyon # (Auto) (units ( unknown) date) 1100 H (0-900) /uL unknown) (unknown) (no (unknown) (unknown) Lyon % (Auto) (units ( unknown) date) (3-14) % unknown) (unknown) (no (unknown) (unknown) Lyon % (Auto) 9.7 (units (unknown) date) (3-14) % unknown) (unknown) (no (unknown) (unknown) Morbid obesity (units (unknown) date) due to excess unknown) calories (unknown) (no (unknown) (unknown) Mother (units (unknown) date) CVA (cerebral unknown) vascular accident) (unknown) (no (unknown) (unknown) NECK: Supple, (units ( unknown) date) full range of unknown) motion (unknown) (no (unknown) (unknown) NEUROLOGICAL: (units ( unknown) date) Cranial nerves II unknown) through XII grossly intact. Moving all (unknown) (no (unknown) (unknown) NT-Pro-B (units (unkno wn) date) Natriuret Pep unknown) (<125) pg/mL (unknown) (no (unknown) (unknown) NT-Pro-B (units (unkno wn) date) Natriuret Pep 637 unknown) H (<125) pg/mL (unknown) (no (unknown) (unknown) Narrative (units (unkn own) date) unknown) (unknown) (no (unknown) (unknown) Neut # (Auto) (units ( unknown) date) (0386-0545) /uL unknown) (unknown) (no (unknown) (unknown) Neut # (Auto) (units ( unknown) date) 8600 H (0654-6580) unknown) /uL (unknown) (no (unknown) (unknown) Neut % (Auto) (units ( unknown) date) (50-75) % unknown) (unknown) (no (unknown) (unknown) Neut % (Auto) (units ( unknown) date) 74.9 (50-75) % unknown) (unknown) (no (unknown) (unknown) No Action (units (unkn own) date) unknown) (unknown) (no (unknown) (unknown) Ondansetron HCl (units (unknown) date) (Ondansetron 4 unknown) Mg/2 Ml Inj) 4 mg IV NOW ONE (unknown) (no (unknown) (unknown) Ordered: (units (unkno wn) date) unknown) (unknown) (no (unknown) (unknown) Ordering (units (unkno wn) date) Provider: unknown) Lilian Armstrong D.O. (unknown) (no (unknown) (unknown) Orders (units (unkno wn) date) unknown) (unknown) (no (unknown) (unknown) Outside Echo (units (u nknown) date) unknown) (unknown) (no (unknown) (unknown) Oxygen Delivery (units (unknown) date) Method 01/21/22 unknown) 14:40 (unknown) (no (unknown) (unknown) Oxygen Delivery (units (unknown) date) Method Room Air unknown) Room Air (unknown) (no (unknown) (unknown) Oxygen Delivery (units (unknown) date) Method Room Air unknown) (unknown) (no (unknown) (unknown) Oxygen Delivery (units (unknown) date) Method unknown) (unknown) (no (unknown) (unknown) PELVIS: (units (unkno wn) date) unknown) (unknown) (no (unknown) (unknown) PRBC [Packed (units (u nknown) date) Cells] Stat unknown) (unknown) (no (unknown) (unknown) PROCEDURE:? CT (units (unknown) date) ABDOMEN PELVIS W unknown) CON (unknown) (no (unknown) (unknown) PROCEDURE:? XR (units (unknown) date) CHEST 1V unknown) (unknown) (no (unknown) (unknown) PT (10.1-12.7) (units (unknown) date) SECONDS unknown) (unknown) (no (unknown) (unknown) PT 18.6 H (units (unkn own) date) (10.1-12.7) unknown) SECONDS (unknown) (no (unknown) (unknown) Pancreas:? (units (unk nown) date) Unremarkable.? ? unknown) (unknown) (no (unknown) (unknown) Pantoprazole (units (u nknown) date) Sodium unknown) (Pantoprazole 40 Mg Vial) 80 mg IV NOW ONE (unknown) (no (unknown) (unknown) Partial (units (unkno wn) date) Thromboplastin unknown) Time Stat (unknown) (no (unknown) (unknown) Patient History (units (unknown) date) unknown) (unknown) (no (unknown) (unknown) Patient: (units (unkno wn) date) Rosalba Pabon MR#: unknown) M0000 (unknown) (no (unknown) (unknown) Patient: (units (unkno wn) date) Rosalba Pabon unknown) (unknown) (no (unknown) (unknown) Pelvic Nodes: No (units (unknown) date) enlarged lymph unknown) nodes.? (unknown) (no (unknown) (unknown) Pelvic Organs:? (units (unknown) date) Unremarkable.? ? unknown) (unknown) (no (unknown) (unknown) Peritoneum:? No (units (unknown) date) abnormal unknown) intraperitoneal fluid.? No free air.? (unknown) (no (unknown) (unknown) Chung Mcdonald, (units (unknown) date) DO [Primary Care unknown) Provider] (unknown) (no (unknown) (unknown) Plt Count (units (unkn own) date) (150-400) X103/uL unknown) (unknown) (no (unknown) (unknown) Plt Count 331 (units ( unknown) date) (150-400) X103/uL unknown) (unknown) (no (unknown) (unknown) Poikilocytosis 1+ (units (unknown) date) H unknown) (unknown) (no (unknown) (unknown) Poikilocytosis (units (unknown) date) unknown) (unknown) (no (unknown) (unknown) Polychromasia 1+ (units (unknown) date) H unknown) (unknown) (no (unknown) (unknown) Polychromasia (units ( unknown) date) unknown) (unknown) (no (unknown) (unknown) Potassium (units (unkn own) date) (3.4-5.1) mmol/L unknown) (unknown) (no (unknown) (unknown) Potassium 3.6 (units ( unknown) date) (3.4-5.1) mmol/L unknown) (unknown) (no (unknown) (unknown) Prescriptions: (units (unknown) date) unknown) (unknown) (no (unknown) (unknown) Previous Rx's (units ( unknown) date) unknown) (unknown) (no (unknown) (unknown) Procedure: CT (units ( unknown) date) abdomen pelvis w unknown) con (unknown) (no (unknown) (unknown) Procedure: XR (units ( unknown) date) chest 1V unknown) (unknown) (no (unknown) (unknown) Prothrombin Time (units (unknown) date) INR Stat unknown) (unknown) (no (unknown) (unknown) Pulmonary (units (unkn own) date) hypertension unknown) (unknown) (no (unknown) (unknown) Pulse Oximetry 94 (units (unknown) date) unknown) (unknown) (no (unknown) (unknown) Pulse Oximetry 96 (units (unknown) date) 01/21/22 14:40 unknown) (unknown) (no (unknown) (unknown) Pulse Oximetry 96 (units (unknown) date) 99 94 unknown) (unknown) (no (unknown) (unknown) Pulse Oximetry (units (unknown) date) unknown) (unknown) (no (unknown) (unknown) Pulse Rate 105 H (units (unknown) date) 01/21/22 14:40 unknown) (unknown) (no (unknown) (unknown) Pulse Rate 105 H (units (unknown) date) 106 H 110 H unknown) (unknown) (no (unknown) (unknown) Pulse Rate 109 H (units (unknown) date) 112 H unknown) (unknown) (no (unknown) (unknown) Pulse Rate 111 H (units (unknown) date) 110 H unknown) (unknown) (no (unknown) (unknown) Pulse Rate (units (unk nown) date) unknown) (unknown) (no (unknown) (unknown) RBC (4.0-5.2) (units ( unknown) date) X106/uL unknown) (unknown) (no (unknown) (unknown) RBC 1.68 L (units (unk nown) date) (4.0-5.2) X106/uL unknown) (unknown) (no (unknown) (unknown) RBC Morphology (units (unknown) date) Not Reportable unknown) (unknown) (no (unknown) (unknown) RBC Morphology (units (unknown) date) unknown) (unknown) (no (unknown) (unknown) RDW (11.6-14.8) % (units (unknown) date) unknown) (unknown) (no (unknown) (unknown) RDW 21.9 H (units (unk nown) date) (11.6-14.8) % unknown) (unknown) (no (unknown) (unknown) RESPIRATORY: (units (u nknown) date) Breath sounds unknown) equal bilaterally, no wheezes rales or rhonchi. (unknown) (no (unknown) (unknown) ROS Unobtainable: (units (unknown) date) All systems unknown) reviewed + are unremarkable except as noted in HPI (unknown) (no (unknown) (unknown) Radiologist's (units ( unknown) date) Impression: unknown) (unknown) (no (unknown) (unknown) Referrals: (units (unk nown) date) unknown) (unknown) (no (unknown) (unknown) Related Data (units (u nknown) date) unknown) (unknown) (no (unknown) (unknown) Respiratory Rate (units (unknown) date) 18 01/21/22 14:40 unknown) (unknown) (no (unknown) (unknown) Respiratory Rate (units (unknown) date) 18 25 H 27 H unknown) (unknown) (no (unknown) (unknown) Respiratory Rate (units (unknown) date) 25 H 28 H unknown) (unknown) (no (unknown) (unknown) Respiratory Rate (units (unknown) date) 28 H unknown) (unknown) (no (unknown) (unknown) Respiratory Rate (units (unknown) date) unknown) (unknown) (no (unknown) (unknown) Restless leg (units (u nknown) date) syndrome unknown) (unknown) (no (unknown) (unknown) Result diagrams: (units (unknown) date) unknown) (unknown) (no (unknown) (unknown) Review of Systems (units (unknown) date) unknown) (unknown) (no (unknown) (unknown) Right-sided low (units (unknown) date) back pain with unknown) sciatica (unknown) (no (unknown) (unknown) Jose G Nagel (units (unknown) date) unknown) (unknown) (no (unknown) (unknown) Rx Instructions: (units (unknown) date) unknown) (unknown) (no (unknown) (unknown) SARS-CoV-2 (PCR) (units (unknown) date) (Negative) unknown) (unknown) (no (unknown) (unknown) SARS-CoV-2 (PCR) (units (unknown) date) Negative unknown) (Negative) (unknown) (no (unknown) (unknown) SKIN: Warm, dry, (units (unknown) date) no petechiae, no unknown) rashes or lesions. (unknown) (no (unknown) (unknown) She does still (units (unknown) date) smoke, she drinks unknown) 2-3 white claws daily, no illicit. She is (unknown) (no (unknown) (unknown) Sigmoid (units (unkno wn) date) diverticulosis is unknown) seen without evidence of acute diverticulitis.? No (unknown) (no (unknown) (unknown) Signed By: (units (unk nown) date) unknown) (unknown) (no (unknown) (unknown) Signed (units (unkno wn) date) unknown) (unknown) (no (unknown) (unknown) Sinus tachycardia (units (unknown) date) rate of 110 VT 146 unknown) QRS 88 QTC 481. No acute ST elevation. (unknown) (no (unknown) (unknown) Smoking Status: (units (unknown) date) Current every day unknown) smoker (unknown) (no (unknown) (unknown) Social History (units (unknown) date) (Reviewed 01/21/22 unknown) @ 15:14 by Lilian Armstrong DO) (unknown) (no (unknown) (unknown) Sodium (137-145) (units (unknown) date) mmol/L unknown) (unknown) (no (unknown) (unknown) Sodium 135 L (units (u nknown) date) (137-145) mmol/L unknown) (unknown) (no (unknown) (unknown) Source: patient (units (unknown) date) unknown) (unknown) (no (unknown) (unknown) Spiriva with (units (u nknown) date) HandiHaler 18 mcg unknown) capsule, w/inhalation device (unknown) (no (unknown) (unknown) Spleen:? Spleen (units (unknown) date) is normal in unknown) size.? Focal calcification in anterior aspect of (unknown) (no (unknown) (unknown) Staph skin (units (unk nown) date) infection unknown) (unknown) (no (unknown) (unknown) Stated complaint: (units (unknown) date) Coffee ground unknown) emesis, CHF, +thinners (unknown) (no (unknown) (unknown) Stomach and (units (un known) date) Bowel:? There is a unknown) small hiatal hernia.? No bowel obstruction.? No (unknown) (no (unknown) (unknown) Stop: 01/21/22 (units (unknown) date) 14:56 unknown) (unknown) (no (unknown) (unknown) Stop: 01/21/22 (units (unknown) date) 15:06 unknown) (unknown) (no (unknown) (unknown) Substance Use (units ( unknown) date) Type: does not use unknown) (unknown) (no (unknown) (unknown) Surgical History (units (unknown) date) (Reviewed 01/21/22 unknown) @ 15:14 by Lilian Armstrong DO) (unknown) (no (unknown) (unknown) Surgical changes (units (unknown) date) and devices:? unknown) None.? (unknown) (no (unknown) (unknown) TECHNIQUE:? One (units (unknown) date) view of the chest unknown) was acquired.? (unknown) (no (unknown) (unknown) TECHNIQUE:? (units (un known) date) unknown) (unknown) (no (unknown) (unknown) Tachycardia (units (un known) date) unknown) (unknown) (no (unknown) (unknown) This is a (units (unkno wn) date) 56-year-old female unknown) who comes in with complaint of melanotic stools and (unknown) (no (unknown) (unknown) This is a (units (unkn own) date) 56-year-old female unknown) with history of pulmonary hypertension, COPD, CHF, (unknown) (no (unknown) (unknown) Time Seen by (units (u nknown) date) Provider: 01/21/22 unknown) 14:54 (unknown) (no (unknown) (unknown) Total Bilirubin (units (unknown) date) (0.2-1.3) mg/dL unknown) (unknown) (no (unknown) (unknown) Total Bilirubin (units (unknown) date) 0.4 (0.2-1.3) unknown) mg/dL (unknown) (no (unknown) (unknown) Total Creatine (units (unknown) date) Kinase (30-135) unknown) U/L (unknown) (no (unknown) (unknown) Total Creatine (units (unknown) date) Kinase 41 (30-135) unknown) U/L (unknown) (no (unknown) (unknown) Total Protein (units ( unknown) date) (6.3-8.2) g/dL unknown) (unknown) (no (unknown) (unknown) Total Protein 5.4 (units (unknown) date) L (6.3-8.2) g/dL unknown) (unknown) (no (unknown) (unknown) Troponin + CK (units ( unknown) date) Cardiac Panel Stat unknown) (unknown) (no (unknown) (unknown) Troponin I < (units (u nknown) date) 0.012 (0.01-0.034) unknown) ng/mL (unknown) (no (unknown) (unknown) Troponin I (units (unk nown) date) (0.01-0.034) ng/mL unknown) (unknown) (no (unknown) (unknown) Type and Screen (units (unknown) date) Stat unknown) (unknown) (no (unknown) (unknown) Ventral Wall: ? (units (unknown) date) Tiny umbilical unknown) hernia is seen containing fat only. (unknown) (no (unknown) (unknown) Vessels:? Aorta (units (unknown) date) and inferior vena unknown) cava are normal in size.? (unknown) (no (unknown) (unknown) Vital Signs - 8 (units (unknown) date) hr unknown) (unknown) (no (unknown) (unknown) Vital Signs (units (un known) date) unknown) (unknown) (no (unknown) (unknown) Vital signs: (units (u nknown) date) unknown) (unknown) (no (unknown) (unknown) WBC (4.5-11.0) (units (unknown) date) X103/uL unknown) (unknown) (no (unknown) (unknown) WBC 11.5 H (units (unk nown) date) (4.5-11.0) X103/uL unknown) (unknown) (no (unknown) (unknown) Fleming,Mg (units (u nknown) date) unknown) (unknown) (no (unknown) (unknown) XR chest 1V Stat (units (unknown) date) unknown) (unknown) (no (unknown) (unknown) XRay Report (units (un known) date) unknown) (unknown) (no (unknown) (unknown) Xarelto. (units (unkno wn) date) unknown) (unknown) (no (unknown) (unknown) Chandana Grimm (units (unkn own) date) unknown) (unknown) (no (unknown) (unknown) Sebastian Carrera (units (unkno wn) date) unknown) (unknown) (no (unknown) (unknown) [Embedded Image (units (unknown) date) Not Available] unknown) (unknown) (no (unknown) (unknown) [From NASONEX] (units (unknown) date) unknown) (unknown) (no (unknown) (unknown) abscess (units (unkno wn) date) unknown) (unknown) (no (unknown) (unknown) acute (units (unkno wn) date) unknown) (unknown) (no (unknown) (unknown) adjustment (units (unk nown) date) unknown) (unknown) (no (unknown) (unknown) aerosol inhaler (units (unknown) date) (Ventolin HFA) unknown) shortness of breath or wheezing (unknown) (no (unknown) (unknown) albuterol sulfate (units (unknown) date) 90 mcg/actuation 1 unknown) puff inhalation Q6H PRN 11/14/21 (unknown) (no (unknown) (unknown) albuterol sulfate (units (unknown) date) [Ventolin HFA] 90 unknown) mcg/actuation HFA aerosol inhaler (unknown) (no (unknown) (unknown) alcohol intake (units (unknown) date) frequency: 3 or unknown) more drinks per day (unknown) (no (unknown) (unknown) alcohol intake: (units (unknown) date) current unknown) (unknown) (no (unknown) (unknown) amlodipine 5 mg (units (unknown) date) tablet 5 mg PO BID unknown) 01/02/22 01/02/22 (unknown) (no (unknown) (unknown) amlodipine 5 mg (units (unknown) date) tablet unknown) (unknown) (no (unknown) (unknown) amoxicillin 875 (units (unknown) date) mg-potassium 1 tab unknown) PO Q12H #20 tabs 05/25/21 (unknown) (no (unknown) (unknown) amoxicillin-pot (units (unknown) date) clavulanate unknown) [Augmentin] 875-125 mg tablet (unknown) (no (unknown) (unknown) and below (units (unkn own) date) unknown) (unknown) (no (unknown) (unknown) and lumbar (units (unk nown) date) unknown) (unknown) (no (unknown) (unknown) angustifolia) (units ( unknown) date) sinus unknown) (unknown) (no (unknown) (unknown) appear (units (unkno wn) date) unknown) (unknown) (no (unknown) (unknown) atrial (units (unkno wn) date) fibrillation on unknown) Xarelto with complaint of coffee-ground emesis and (unknown) (no (unknown) (unknown) avascular (units (unkn own) date) unknown) (unknown) (no (unknown) (unknown) bases to the (units (u nknown) date) pubic symphysis.? unknown) Coronal and sagittal reformats were performed.? (unknown) (no (unknown) (unknown) been taking (units (un known) date) ibuprofen 8 unknown) tablets of 200 mg ibuprofen. (unknown) (no (unknown) (unknown) breath. She is (units (unknown) date) had nausea and unknown) vomiting she states she is thrown up 5 times (unknown) (no (unknown) (unknown) breathe (units (unkno wn) date) unknown) (unknown) (no (unknown) (unknown) breathing (units (unkn own) date) unknown) (unknown) (no (unknown) (unknown) cannot (units (unkno wn) date) unknown) (unknown) (no (unknown) (unknown) clavulanate 125 (units (unknown) date) mg tablet unknown) (unknown) (no (unknown) (unknown) clobetasol 0.05 % (units (unknown) date) scalp solution 1 unknown) applic topical BEDTIME #25 mL 03/03/21 (unknown) (no (unknown) (unknown) clobetasol 0.05 % (units (unknown) date) solution unknown) (unknown) (no (unknown) (unknown) closes, (units (unkno wn) date) unknown) (unknown) (no (unknown) (unknown) coffee-ground (units ( unknown) date) emesis that has unknown) been intermittent over time. Patient is (unknown) (no (unknown) (unknown) collection. (units (un known) date) unknown) (unknown) (no (unknown) (unknown) compression (units (un known) date) fracture.? Right unknown) worse than left bilateral hip joint (unknown) (no (unknown) (unknown) congestion (units (unk nown) date) unknown) (unknown) (no (unknown) (unknown) conjunctival (units (u nknown) date) pallor face unknown) symmetric, moist mucous membranes (unknown) (no (unknown) (unknown) discrete (units (unkno wn) date) unknown) (unknown) (no (unknown) (unknown) extremities (units (un known) date) unknown) (unknown) (no (unknown) (unknown) fracture.? (units (unk nown) date) unknown) (unknown) (no (unknown) (unknown) gastric or (units (unk nown) date) unknown) (unknown) (no (unknown) (unknown) grass pollen (units (u nknown) date) Allergy sinus unknown) Verified 01/02/22 13:27 (unknown) (no (unknown) (unknown) guarding or (units (un known) date) rebound, rigidity, unknown) no mass, positive stool occult with black stool. (unknown) (no (unknown) (unknown) has resolved when (units (unknown) date) she is not unknown) exerting herself as well as feels actively short of (unknown) (no (unknown) (unknown) hepatic lesion. (units (unknown) date) unknown) (unknown) (no (unknown) (unknown) intact (units (unkno wn) date) unknown) (unknown) (no (unknown) (unknown) lavender (units (unkno wn) date) (Lavandula Allergy unknown) severe Verified 01/02/22 13:27 (unknown) (no (unknown) (unknown) like since (units (unk nown) date) Wednesday. Patient unknown) denies any swelling of extremities. She is had a (unknown) (no (unknown) (unknown) melanotic stools (units (unknown) date) since Wednesday or unknown) Wednesday the 18 of January. Patient also notes (unknown) (no (unknown) (unknown) metoprolol (units (unk nown) date) succinate 50 mg 50 unknown) mg PO BID #180 tabs 01/02/22 (unknown) (no (unknown) (unknown) metoprolol (units (unk nown) date) succinate 50 mg unknown) tablet extended release 24 hr (unknown) (no (unknown) (unknown) mild leukocytosis (units (unknown) date) and appropriate unknown) platelets. Patient is anticoagulated on (unknown) (no (unknown) (unknown) mometasone (units (unk nown) date) furoate Allergy unknown) Unknown Verified 01/02/22 13:27 (unknown) (no (unknown) (unknown) necrosis of (units (un known) date) femoral head.? unknown) Degenerative disc disease throughout lower thoracic (unknown) (no (unknown) (unknown) not felt well she (units (unknown) date) is felt unknown) increasingly fatigued lightheaded like she is going to (unknown) (no (unknown) (unknown) obstruction (units (un known) date) unknown) (unknown) (no (unknown) (unknown) of mA and/or kV (units (unknown) date) according to unknown) patient size.? (unknown) (no (unknown) (unknown) or abnormal bowel (units (unknown) date) wall thickening.? unknown) No free fluid or free air. (unknown) (no (unknown) (unknown) osteoarthritis.? (units (unknown) date) unknown) (unknown) (no (unknown) (unknown) pass out she has (units (unknown) date) not had actual unknown) syncope, she has had some chest pressure which (unknown) (no (unknown) (unknown) pine tanya Allergy (units (unknown) date) Severe throat unknown) Uncoded 01/02/22 13:27 (unknown) (no (unknown) (unknown) pramipexole 0.25 (units (unknown) date) mg tablet 0.25 mg unknown) PO BEDTIME #90 tabs 01/02/22 (unknown) (no (unknown) (unknown) pramipexole (units (un known) date) [Mirapex] 0.25 mg unknown) tablet (unknown) (no (unknown) (unknown) prior complete (units ( unknown) date) hysterectomy, she unknown) is supposed to be seen for EGD and colonoscopy. (unknown) (no (unknown) (unknown) puncture 1 cap (units (unknown) date) using device; one unknown) dose = 2 inhalations (unknown) (no (unknown) (unknown) quit status: has (units (unknown) date) quit before unknown) (unknown) (no (unknown) (unknown) radiation dose (units (unknown) date) reduction, the unknown) following was used:? automated exposure control, (unknown) (no (unknown) (unknown) release 24 hr (units ( unknown) date) (Detrol LA) unknown) (unknown) (no (unknown) (unknown) seen. (units (unkno wn) date) unknown) (unknown) (no (unknown) (unknown) she was having (units (unknown) date) episodes at least unknown) a couple weeks ago. Patient has noted she has (unknown) (no (unknown) (unknown) since Wednesday. She (units (unknown) date) has had multiple unknown) lack stools that she describes as diarrhea (unknown) (no (unknown) (unknown) small bowel wall (units (unknown) date) thickening.? No unknown) colonic wall thickening.? No mesenteric fat (unknown) (no (unknown) (unknown) spine is seen. (units (unknown) date) unknown) (unknown) (no (unknown) (unknown) spironolactone 25 (units (unknown) date) mg tablet 25 mg PO unknown) DAILY 03/03/21 01/02/22 (unknown) (no (unknown) (unknown) spironolactone 25 (units (unknown) date) mg tablet unknown) (unknown) (no (unknown) (unknown) spleen is (units (unkn own) date) unknown) (unknown) (no (unknown) (unknown) stranding.? (units (un known) date) unknown) (unknown) (no (unknown) (unknown) swelling (units (unkno wn) date) bilateral lower unknown) extremities. (unknown) (no (unknown) (unknown) swelling, (units (unkn own) date) unknown) (unknown) (no (unknown) (unknown) tablet,extended (units (unknown) date) release 24 hr unknown) (unknown) (no (unknown) (unknown) tachycardic (units (un known) date) hypotensive quite unknown) pale. Initial labs show a hemoglobin of 3.9, with (unknown) (no (unknown) (unknown) the lung (units (unkno wn) date) unknown) (unknown) (no (unknown) (unknown) tiotropium (units (unk nown) date) bromide 18 mcg unknown) capsule 1 cap inhalation DAILY #90 10/28/20 (unknown) (no (unknown) (unknown) tobacco type: (units ( unknown) date) cigarettes unknown) (unknown) (no (unknown) (unknown) tolterodine 2 mg (units (unknown) date) capsule,extended 2 unknown) mg PO BEDTIME #90 caps 01/02/22 (unknown) (no (unknown) (unknown) tolterodine (units (un known) date) [Detrol LA] 2 mg unknown) capsule,extended release 24hr (unknown) (no (unknown) (unknown) trouble (units (unkno wn) date) unknown) (unknown) (no (unknown) (unknown) unremarkable.? (units (unknown) date) unknown) (unknown) (no (unknown) (unknown) with HandiHaler) (units (unknown) date) unknown) (unknown) (no (unknown) (unknown) with inhalation (units (unknown) date) device (Spiriva unknown) inhalations Result panel 17 (unknown) (no (unknown) (unknown) (no value) (units (unk nown) date) unknown) (unknown) (no (unknown) (unknown) #18 grams (units (unkn own) date) unknown) (unknown) (no (unknown) (unknown) (Augmentin) (units (un known) date) unknown) (unknown) (no (unknown) (unknown) (Mirapex) (units (unkn own) date) unknown) (unknown) (no (unknown) (unknown) 0.25 mg PO (units (unk nown) date) BEDTIME Qty: 90 unknown) 1RF (unknown) (no (unknown) (unknown) 05/25/21 (units (unkno wn) date) unknown) (unknown) (no (unknown) (unknown) 09/14/18 (units (unkno wn) date) unknown) (unknown) (no (unknown) (unknown) 10/08/19 (units (unkno wn) date) unknown) (unknown) (no (unknown) (unknown) 10/11/19 (units (unkno wn) date) unknown) (unknown) (no (unknown) (unknown) 10/22/20 (units (unkno wn) date) unknown) (unknown) (no (unknown) (unknown) 11/16/19 (units (unkno wn) date) unknown) (unknown) (no (unknown) (unknown) 11/15/20 (units (unkno wn) date) unknown) (unknown) (no (unknown) (unknown) 12/04/20 (units (unkno wn) date) unknown) (unknown) (no (unknown) (unknown) 1 applic topical (units (unknown) date) BEDTIME Qty: 25 unknown) 0RF (unknown) (no (unknown) (unknown) 1 cap inhalation (units (unknown) date) DAILY Qty: 90 1RF unknown) (unknown) (no (unknown) (unknown) 1 puff INHALATION (units (unknown) date) Q6H PRN (Reason: unknown) shortness of breath or wheezing) Qty: 18 (unknown) (no (unknown) (unknown) 1 tab PO Q12H (units ( unknown) date) Qty: 20 0RF unknown) (unknown) (no (unknown) (unknown) 1. Sigmoid (units (unk nown) date) diverticulosis unknown) without evidence of acute diverticulitis.? No bowel (unknown) (no (unknown) (unknown) 01/21/22 01/21/22 (units (unknown) date) 01/21/22 unknown) Range/Units (unknown) (no (unknown) (unknown) 01/21/22 14:50 (units (unknown) date) unknown) (unknown) (no (unknown) (unknown) 01/21/22 14:53 (units (unknown) date) unknown) (unknown) (no (unknown) (unknown) 01/21/22 14:54 (units (unknown) date) unknown) (unknown) (no (unknown) (unknown) 01/21/22 15:05 (units (unknown) date) unknown) (unknown) (no (unknown) (unknown) 10/12/22 (units (unkno wn) date) Range/Units unknown) (unknown) (no (unknown) (unknown) 01/21/22 (units (unkno wn) date) unknown) (unknown) (no (unknown) (unknown) [address] [place] [address] (units (unknown) date) unknown) (unknown) (no (unknown) (unknown) 14:40 01/21/22 (units (unknown) date) unknown) (unknown) (no (unknown) (unknown) 14:50 14:50 14:50 (units (unknown) date) unknown) (unknown) (no (unknown) (unknown) 14:50 (units (unkno wn) date) unknown) (unknown) (no (unknown) (unknown) 14:55 01/21/22 (units (unknown) date) unknown) (unknown) (no (unknown) (unknown) 15:00 (units (unkno wn) date) unknown) (unknown) (no (unknown) (unknown) 15:23 01/21/22 (units (unknown) date) unknown) (unknown) (no (unknown) (unknown) 15:24 01/21/22 (units (unknown) date) unknown) (unknown) (no (unknown) (unknown) 15:24 (units (unkno wn) date) unknown) (unknown) (no (unknown) (unknown) 15:30 01/21/22 (units (unknown) date) unknown) (unknown) (no (unknown) (unknown) 15:38 (units (unkno wn) date) unknown) (unknown) (no (unknown) (unknown) 2 mg PO BEDTIME (units (unknown) date) Qty: 90 1RF unknown) (unknown) (no (unknown) (unknown) 2. Hepatic (units (unk nown) date) steatosis, no unknown) discrete hepatic lesion. (unknown) (no (unknown) (unknown) 25 mg PO DAILY (units (unknown) date) unknown) (unknown) (no (unknown) (unknown) 3. Degenerative (units (unknown) date) disc disease unknown) throughout lower thoracic and lumbar spine.? No (unknown) (no (unknown) (unknown) 5 mg PO BID (units (un known) date) unknown) (unknown) (no (unknown) (unknown) 50 mg PO BID Qty: (units (unknown) date) 180 1RF unknown) (unknown) (no (unknown) (unknown) [address] (units (unkno wn) date) unknown) (unknown) (no (unknown) (unknown) 5RF (units (unkno wn) date) unknown) (unknown) (no (unknown) (unknown) ? (units (unkno wn) date) unknown) (unknown) (no (unknown) (unknown) ABDOMEN: Soft, (units (unknown) date) nontender. unknown) Normoactive bowel sounds all 4 quadrants. No (unknown) (no (unknown) (unknown) ABDOMEN: (units (unkno wn) date) unknown) (unknown) (no (unknown) (unknown) ALT (<35) IU/L (units (unknown) date) unknown) (unknown) (no (unknown) (unknown) ALT 14 (<35) IU/L (units (unknown) date) unknown) (unknown) (no (unknown) (unknown) APTT (26-36) (units (u nknown) date) SECONDS unknown) (unknown) (no (unknown) (unknown) APTT 25 L (26-36) (units (unknown) date) SECONDS unknown) (unknown) (no (unknown) (unknown) AST (14-36) IU/L (units (unknown) date) unknown) (unknown) (no (unknown) (unknown) AST 45 H (14-36) (units (unknown) date) IU/L unknown) (unknown) (no (unknown) (unknown) Abdomen (units (unkno wn) date) Ultrasound unknown) (Signed) (unknown) (no (unknown) (unknown) Abdomen/Pelvis CT (units (unknown) date) (Signed) unknown) (unknown) (no (unknown) (unknown) Abdominal Nodes:? (units (unknown) date) No retroperitoneal unknown) or mesenteric adenopathy by size criteria.? (unknown) (no (unknown) (unknown) Abdominal pain (units (unknown) date) unknown) (unknown) (no (unknown) (unknown) Accession Number: (units (unknown) date) [id number] ?? unknown) (unknown) (no (unknown) (unknown) Accession Number: (units (unknown) date) [id number] ?? unknown) (unknown) (no (unknown) (unknown) Acct:[id number] (units (unknown) date) unknown) (unknown) (no (unknown) (unknown) Adrenal Glands:? (units (unknown) date) Unremarkable.? ? unknown) (unknown) (no (unknown) (unknown) After the (units (unkn own) date) administration of unknown) intravenous contrast, axial sections acquired from (unknown) (no (unknown) (unknown) Age/Sex: 56 / F (units (unknown) date) unknown) (unknown) (no (unknown) (unknown) Albumin (3.5-5.0) (units (unknown) date) g/dL unknown) (unknown) (no (unknown) (unknown) Albumin 2.9 L (units ( unknown) date) (3.5-5.0) g/dL unknown) (unknown) (no (unknown) (unknown) Albumin/Globulin (units (unknown) date) Ratio (1.0-2.8) unknown) (unknown) (no (unknown) (unknown) Albumin/Globulin (units (unknown) date) Ratio 1.2 unknown) (1.0-2.8) (unknown) (no (unknown) (unknown) Alkaline (units (unkno wn) date) Phosphatase unknown) (38-126) U/L (unknown) (no (unknown) (unknown) Alkaline (units (unkno wn) date) Phosphatase 39 unknown) (38-126) U/L (unknown) (no (unknown) (unknown) Allergic (units (unkno wn) date) dermatitis of unknown) eyelids of both eyes (unknown) (no (unknown) (unknown) Allergies (units (unkn own) date) unknown) (unknown) (no (unknown) (unknown) Allergy/AdvReac (units (unknown) date) Type Severity unknown) Reaction Status Date / Time (unknown) (no (unknown) (unknown) [place], [place] (units ( unknown) date) [id number] unknown) (unknown) (no (unknown) (unknown) Anemia (units (unkno wn) date) unknown) (unknown) (no (unknown) (unknown) Anisocytosis 2+ H (units (unknown) date) unknown) (unknown) (no (unknown) (unknown) Anisocytosis (units (u nknown) date) unknown) (unknown) (no (unknown) (unknown) Apply twice week (units (unknown) date) unknown) (unknown) (no (unknown) (unknown) Approved by: Augustus Orozcounits (unknown) date) Kyra Aguirre on unknown) 01/21/2022 at 15:30?? (unknown) (no (unknown) (unknown) Arthritis (units (unkn own) date) (Unknown) unknown) (unknown) (no (unknown) (unknown) Asthma (Unknown) (units (unknown) date) unknown) (unknown) (no (unknown) (unknown) Asthma (units (unkno wn) date) unknown) (unknown) (no (unknown) (unknown) Attestation: I (units (unknown) date) personally unknown) reviewed and interpreted this ECG as follows: (unknown) (no (unknown) (unknown) BNP [NT-proBNP (units (unknown) date) (BNP-Adult 18+)] unknown) Stat (unknown) (no (unknown) (unknown) BUN (7-17) mg/dL (units (unknown) date) unknown) (unknown) (no (unknown) (unknown) BUN 37 H (7-17) (units (unknown) date) mg/dL unknown) (unknown) (no (unknown) (unknown) BUN/Creatinine (units (unknown) date) Ratio (6-22) unknown) (unknown) (no (unknown) (unknown) BUN/Creatinine (units (unknown) date) Ratio 47.4 H unknown) (6-22) (unknown) (no (unknown) (unknown) Baso # (Auto) (units ( unknown) date) (0-100) /uL unknown) (unknown) (no (unknown) (unknown) Baso # (Auto) 100 (units (unknown) date) (0-100) /uL unknown) (unknown) (no (unknown) (unknown) Baso % (Auto) (units ( unknown) date) (0-2) % unknown) (unknown) (no (unknown) (unknown) Baso % (Auto) 0.6 (units (unknown) date) (0-2) % unknown) (unknown) (no (unknown) (unknown) Biliary ducts:? (units (unknown) date) Unremarkable.? ? unknown) (unknown) (no (unknown) (unknown) Bladder:? (units (unkn own) date) Unremarkable.? ? unknown) (unknown) (no (unknown) (unknown) Blood Pressure (units (unknown) date) 102/53 L 01/21/22 unknown) 14:40 (unknown) (no (unknown) (unknown) Blood Pressure (units (unknown) date) 102/53 L unknown) (unknown) (no (unknown) (unknown) Blood Pressure (units (unknown) date) 104/51 L unknown) (unknown) (no (unknown) (unknown) Blood Pressure (units (unknown) date) 105/51 L unknown) (unknown) (no (unknown) (unknown) Blood Pressure (units (unknown) date) 113/51 L unknown) (unknown) (no (unknown) (unknown) Bones and chest (units (unknown) date) wall:? No unknown) suspicious bony lesions.? Overlying soft tissues (unknown) (no (unknown) (unknown) Bones:? No (units (unk nown) date) suspicious bony unknown) lesion.? No acute vertebral body compression (unknown) (no (unknown) (unknown) CARDIOVASCULAR: (units (unknown) date) Regular rate and unknown) rhythm without murmurs, rubs or gallops. No (unknown) (no (unknown) (unknown) CK-MB (CK-2) Rel (units (unknown) date) Index TNP unknown) (unknown) (no (unknown) (unknown) CK-MB (CK-2) Rel (units (unknown) date) Index unknown) (unknown) (no (unknown) (unknown) CK-MB (CK-2) TNP (units (unknown) date) unknown) (unknown) (no (unknown) (unknown) CK-MB (CK-2) (units (u nknown) date) unknown) (unknown) (no (unknown) (unknown) COMPARISON:? (units (u nknown) date) [facility], unknown) CR, XR CHEST 1V, 05/25/2021, 11:07. (unknown) (no (unknown) (unknown) COMPARISON:? (units (u nknown) date) None. unknown) (unknown) (no (unknown) (unknown) COPD (chronic (units ( unknown) date) obstructive unknown) pulmonary disease) (unknown) (no (unknown) (unknown) COVID19 -Nasal (units (unknown) date) RAPID/Pre-Proc unknown) Stat (unknown) (no (unknown) (unknown) CT Scan Report (units (unknown) date) unknown) (unknown) (no (unknown) (unknown) CT abdomen pelvis (units (unknown) date) w con Stat unknown) (unknown) (no (unknown) (unknown) CT scan - (units (unkn own) date) abdomen/pelvis: unknown) (unknown) (no (unknown) (unknown) Calcium (units (unkno wn) date) (8.4-10.2) mg/dL unknown) (unknown) (no (unknown) (unknown) Calcium 7.9 L (units ( unknown) date) (8.4-10.2) mg/dL unknown) (unknown) (no (unknown) (unknown) Carbon Dioxide (units (unknown) date) (22-32) mmol/L unknown) (unknown) (no (unknown) (unknown) Carbon Dioxide 28 (units (unknown) date) (22-32) mmol/L unknown) (unknown) (no (unknown) (unknown) Carpal tunnel (units ( unknown) date) syndrome (-2017) unknown) (unknown) (no (unknown) (unknown) Chest X-Ray (units (un known) date) (Signed) unknown) (unknown) (no (unknown) (unknown) Chest x-ray: (units (u nknown) date) unknown) (unknown) (no (unknown) (unknown) Chief complaint: (units (unknown) date) GI Bleed unknown) (unknown) (no (unknown) (unknown) Chloride (98-107) (units (unknown) date) mmol/L unknown) (unknown) (no (unknown) (unknown) Chloride 100 (units (u nknown) date) (98-107) mmol/L unknown) (unknown) (no (unknown) (unknown) Chronic atrial (units (unknown) date) fibrillation unknown) (unknown) (no (unknown) (unknown) Clinical (units (unkno wn) date) Impression: unknown) (unknown) (no (unknown) (unknown) Close (units (unkno wn) date) unknown) (unknown) (no (unknown) (unknown) Complete Blood (units (unknown) date) Count AUTO DIFF unknown) Stat (unknown) (no (unknown) (unknown) Comprehensive (units ( unknown) date) Metabolic Panel unknown) Stat (unknown) (no (unknown) (unknown) Consultation #1: (units (unknown) date) unknown) (unknown) (no (unknown) (unknown) Consultation #2: (units (unknown) date) unknown) (unknown) (no (unknown) (unknown) Consultations (units ( unknown) date) unknown) (unknown) (no (unknown) (unknown) Cor pulmonale (units ( unknown) date) (chronic) unknown) (unknown) (no (unknown) (unknown) Course (units (unkno wn) date) unknown) (unknown) (no (unknown) (unknown) Creatinine (units (unk nown) date) (0.52-1.04) mg/dL unknown) (unknown) (no (unknown) (unknown) Creatinine 0.78 (units (unknown) date) (0.52-1.04) mg/dL unknown) (unknown) (no (unknown) (unknown) Crossmatch See (units (unknown) date) Detail unknown) (unknown) (no (unknown) (unknown) Crossmatch (units (unk nown) date) unknown) (unknown) (no (unknown) (unknown) : 1965 (units (unknown) date) Acct:[id number] unknown) (unknown) (no (unknown) (unknown) : 1965 (units (unknown) date) unknown) (unknown) (no (unknown) (unknown) Date of Service: (units (unknown) date) 01/21/22 unknown) (unknown) (no (unknown) (unknown) Departure (units (unkn own) date) unknown) (unknown) (no (unknown) (unknown) Depression not (units (unknown) date) appreciated. unknown) (unknown) (no (unknown) (unknown) Dictated by: Augustus (units (unknown) date) Kyra Aguirre on unknown) 01/21/2022 at 15:27 ? ? (unknown) (no (unknown) (unknown) Dictated by: Augustus (units (unknown) date) Kyra Aguirre on unknown) 01/21/2022 at 15:30 ? ? (unknown) (no (unknown) (unknown) Discharge Plan (units (unknown) date) unknown) (unknown) (no (unknown) (unknown) Discontinued (units (u nknown) date) Medications unknown) (unknown) (no (unknown) (unknown) Documented By: KP (units (unknown) date) unknown) (unknown) (no (unknown) (unknown) Dr. Clancy, (units ( unknown) date) general surgery. unknown) Happy to see patient. Discussed findings and (unknown) (no (unknown) (unknown) Dr. Lewis, (units (un known) date) hospitalist unknown) (unknown) (no (unknown) (unknown) ECG Data (units (unkno wn) date) unknown) (unknown) (no (unknown) (unknown) ED Orders (units (unkn own) date) unknown) (unknown) (no (unknown) (unknown) EKG Rpt. (units (unkno wn) date) unknown) (unknown) (no (unknown) (unknown) EKG-12 Lead Stat (units (unknown) date) unknown) (unknown) (no (unknown) (unknown) ER Physician: (units ( unknown) date) Lilian Armstrong D.O. unknown) (unknown) (no (unknown) (unknown) EXTREMITIES: (units (u nknown) date) Normal range of unknown) motion, no clubbing or edema. Neurovascularly (unknown) (no (unknown) (unknown) Eczema (units (unkno wn) date) unknown) (unknown) (no (unknown) (unknown) Emergency Report (units (unknown) date) unknown) (unknown) (no (unknown) (unknown) Eos # (Auto) (units (u nknown) date) (0-450) /uL unknown) (unknown) (no (unknown) (unknown) Eos # (Auto) 0 (units (unknown) date) (0-450) /uL unknown) (unknown) (no (unknown) (unknown) Eos % (Auto) (units (u nknown) date) (2-4) % unknown) (unknown) (no (unknown) (unknown) Eos % (Auto) 0.1 (units (unknown) date) L (2-4) % unknown) (unknown) (no (unknown) (unknown) Estimated GFR > (units (unknown) date) 60 (>60) mL/min unknown) (unknown) (no (unknown) (unknown) Estimated GFR (units ( unknown) date) (>60) mL/min unknown) (unknown) (no (unknown) (unknown) Ethanol (ETOH) (units (unknown) date) Stat unknown) (unknown) (no (unknown) (unknown) Ethyl Alcohol < (units (unknown) date) 10 ( - 10) mg/dL unknown) (unknown) (no (unknown) (unknown) Ethyl Alcohol ( - (units (unknown) date) 10) mg/dL unknown) (unknown) (no (unknown) (unknown) Exam Narrative: (units (unknown) date) unknown) (unknown) (no (unknown) (unknown) Exam (units (unkno wn) date) unknown) (unknown) (no (unknown) (unknown) FINDINGS:? (units (unk nown) date) unknown) (unknown) (no (unknown) (unknown) Face CT (Signed) (units (unknown) date) unknown) (unknown) (no (unknown) (unknown) Family History (units (unknown) date) (Reviewed 01/21/22 unknown) @ 15:14 by Lilian Armstrong DO) (unknown) (no (unknown) (unknown) Fentanyl (units (unkno wn) date) (Fentanyl 100 unknown) Mcg/2 Ml Inj) 25 mcg IV NOW ONE (unknown) (no (unknown) (unknown) For (units (unkno wn) date) unknown) (unknown) (no (unknown) (unknown) GENERAL: Alert (units (unknown) date) and oriented x unknown) three, pale, obese female in moderate distress. (unknown) (no (unknown) (unknown) GI bleed, (units (unkn own) date) Hypotension unknown) (unknown) (no (unknown) (unknown) : No CVA (units (unk nown) date) tenderness unknown) (unknown) (no (unknown) (unknown) Gallbladder:? (units ( unknown) date) Unremarkable. unknown) (unknown) (no (unknown) (unknown) General (units (unkno wn) date) unknown) (unknown) (no (unknown) (unknown) Globulin (units (unkno wn) date) (1.7-4.1) g/dL unknown) (unknown) (no (unknown) (unknown) Globulin 2.5 (units (u nknown) date) (1.7-4.1) g/dL unknown) (unknown) (no (unknown) (unknown) Glucose (70-100) (units (unknown) date) mg/dL unknown) (unknown) (no (unknown) (unknown) Glucose 113 H (units ( unknown) date) (70-100) mg/dL unknown) (unknown) (no (unknown) (unknown) HEENT: Head (units (un known) date) normocephalic, unknown) atraumatic, EOMI, pupils reactive, positive for (unknown) (no (unknown) (unknown) HPI - GI Bleed (units (unknown) date) unknown) (unknown) (no (unknown) (unknown) HPI Narrative: (units (unknown) date) unknown) (unknown) (no (unknown) (unknown) Hct (36-46) % (units ( unknown) date) unknown) (unknown) (no (unknown) (unknown) Hct 12.8 L* (units (un known) date) (36-46) % unknown) (unknown) (no (unknown) (unknown) Heart:? No (units (unk nown) date) significant unknown) findings. (unknown) (no (unknown) (unknown) Hgb (12.0-16.0) (units (unknown) date) g/dL unknown) (unknown) (no (unknown) (unknown) Hgb 3.9 L* (units (unk nown) date) (12.0-16.0) g/dL unknown) (unknown) (no (unknown) (unknown) History of (units (unk nown) date) Present Illness unknown) (unknown) (no (unknown) (unknown) History of (units (unk nown) date) hysterectomy for unknown) cancer (unknown) (no (unknown) (unknown) Home Medications (units (unknown) date) unknown) (unknown) (no (unknown) (unknown) Hypochromasia 3+ (units (unknown) date) H unknown) (unknown) (no (unknown) (unknown) Hypochromasia (units ( unknown) date) unknown) (unknown) (no (unknown) (unknown) IMPRESSION: (units (un known) date) unknown) (unknown) (no (unknown) (unknown) IMPRESSION:? No (units (unknown) date) focal infiltrate, unknown) pleural effusion or pneumothorax. (unknown) (no (unknown) (unknown) INDICATIONS:? Flu (units (unknown) date) like symptoms unknown) (unknown) (no (unknown) (unknown) INDICATIONS:? abd (units (unknown) date) pain, gi bleed unknown) (unknown) (no (unknown) (unknown) INR (0.9-1.3) (units ( unknown) date) unknown) (unknown) (no (unknown) (unknown) INR 1.6 H (units (unkn own) date) (0.9-1.3) unknown) (unknown) (no (unknown) (unknown) Image quality:? (units (unknown) date) Excellent.? unknown) (unknown) (no (unknown) (unknown) Imaging Data (units (u nknown) date) unknown) (unknown) (no (unknown) (unknown) Impetigo (units (unkno wn) date) unknown) (unknown) (no (unknown) (unknown) Incontinence (units (u nknown) date) unknown) (unknown) (no (unknown) (unknown) Initial Vital (units ( unknown) date) Signs unknown) (unknown) (no (unknown) (unknown) Initial Vital (units ( unknown) date) Signs: unknown) (unknown) (no (unknown) (unknown) Interpretation: (units (unknown) date) unknown) (unknown) (no (unknown) (unknown) [facility] (units (unknown) date) [address] [place] [address] unknown) [place] [address] (unknown) (no (unknown) (unknown) [facility] (units (unknown) date) unknown) (unknown) (no (unknown) (unknown) Kidneys and (units (un known) date) Ureters:? No unknown) stones or hydronephrosis.? No hydroureter. (unknown) (no (unknown) (unknown) Lab Data (units (unkno wn) date) unknown) (unknown) (no (unknown) (unknown) Lab Results (units (un known) date) unknown) (unknown) (no (unknown) (unknown) Labs: (units (unkno wn) date) unknown) (unknown) (no (unknown) (unknown) Last Admin: (units (un known) date) 01/21/22 15:31 unknown) Dose: 4 mg (unknown) (no (unknown) (unknown) Last Admin: (units (un known) date) 01/21/22 15:33 unknown) Dose: 25 mcg (unknown) (no (unknown) (unknown) Last Admin: (units (un known) date) 01/21/22 15:33 unknown) Dose: 80 mg (unknown) (no (unknown) (unknown) Launch?Image (units (u nknown) date) unknown) (unknown) (no (unknown) (unknown) Limitations: no (units (unknown) date) limitations unknown) (unknown) (no (unknown) (unknown) Augustus Aguirre (units (unkno wn) date) unknown) (unknown) (no (unknown) (unknown) Liver:? Liver is (units (unknown) date) normal in size.? unknown) Moderate hepatic steatosis is seen.? No (unknown) (no (unknown) (unknown) Loc: ED (units (unkno wn) date) unknown) (unknown) (no (unknown) (unknown) Lung bases:? (units (u nknown) date) Unremarkable. unknown) (unknown) (no (unknown) (unknown) Lungs and (units (unkn own) date) pleura:? Lungs are unknown) clear.? No pleural effusions or pneumothorax.? (unknown) (no (unknown) (unknown) Lymph # (Auto) (units (unknown) date) (1573-0429) /uL unknown) (unknown) (no (unknown) (unknown) Lymph # (Auto) (units (unknown) date) 1700 (3793-1536) unknown) /uL (unknown) (no (unknown) (unknown) Lymph % (Auto) (units (unknown) date) (25-40) % unknown) (unknown) (no (unknown) (unknown) Lymph % (Auto) (units (unknown) date) 14.7 L (25-40) % unknown) (unknown) (no (unknown) (unknown) MCH (26-34) PG (units (unknown) date) unknown) (unknown) (no (unknown) (unknown) MCH 23.0 L (units (unk nown) date) (26-34) PG unknown) (unknown) (no (unknown) (unknown) MCHC (30-36) % (units (unknown) date) unknown) (unknown) (no (unknown) (unknown) MCHC 30.3 (30-36) (units (unknown) date) % unknown) (unknown) (no (unknown) (unknown) MCV (80-100) fL (units (unknown) date) unknown) (unknown) (no (unknown) (unknown) MCV 75.9 L (units (unk nown) date) (80-100) fL unknown) (unknown) (no (unknown) (unknown) MDM - GI Bleed (units (unknown) date) unknown) (unknown) (no (unknown) (unknown) MDM Narrative (units ( unknown) date) unknown) (unknown) (no (unknown) (unknown) MR#: [id number] (units (unknown) date) unknown) (unknown) (no (unknown) (unknown) Mediastinum:? (units ( unknown) date) Mediastinal unknown) contours appear normal.? Heart size is enlarged.? (unknown) (no (unknown) (unknown) Medical History (units (unknown) date) (Reviewed 01/21/22 unknown) @ 15:14 by Lilian Armstrong DO) (unknown) (no (unknown) (unknown) Medical decision (units (unknown) date) making narrative: unknown) (unknown) (no (unknown) (unknown) Medication (units (unk nown) date) Instructions unknown) Recorded Confirmed (unknown) (no (unknown) (unknown) Medication (units (unk nown) date) Instructions unknown) Recorded (unknown) (no (unknown) (unknown) Miscellaneous: No (units (unknown) date) hernias are seen. unknown) ? ? (unknown) (no (unknown) (unknown) Moderate right (units (unknown) date) hip joint unknown) osteoarthritic changes are seen.? No evidence of (unknown) (no (unknown) (unknown) Lyon # (Auto) (units ( unknown) date) (0-900) /uL unknown) (unknown) (no (unknown) (unknown) Lyon # (Auto) (units ( unknown) date) 1100 H (0-900) /uL unknown) (unknown) (no (unknown) (unknown) Lyon % (Auto) (units ( unknown) date) (3-14) % unknown) (unknown) (no (unknown) (unknown) Lyon % (Auto) 9.7 (units (unknown) date) (3-14) % unknown) (unknown) (no (unknown) (unknown) Morbid obesity (units (unknown) date) due to excess unknown) calories (unknown) (no (unknown) (unknown) Mother (units (unknown) date) CVA (cerebral unknown) vascular accident) (unknown) (no (unknown) (unknown) NECK: Supple, (units ( unknown) date) full range of unknown) motion (unknown) (no (unknown) (unknown) NEUROLOGICAL: (units ( unknown) date) Cranial nerves II unknown) through XII grossly intact. Moving all (unknown) (no (unknown) (unknown) NT-Pro-B (units (unkno wn) date) Natriuret Pep unknown) (<125) pg/mL (unknown) (no (unknown) (unknown) NT-Pro-B (units (unkno wn) date) Natriuret Pep 637 unknown) H (<125) pg/mL (unknown) (no (unknown) (unknown) Narrative (units (unkn own) date) unknown) (unknown) (no (unknown) (unknown) Neut # (Auto) (units ( unknown) date) (7055-5781) /uL unknown) (unknown) (no (unknown) (unknown) Neut # (Auto) (units ( unknown) date) 8600 H (1488-4125) unknown) /uL (unknown) (no (unknown) (unknown) Neut % (Auto) (units ( unknown) date) (50-75) % unknown) (unknown) (no (unknown) (unknown) Neut % (Auto) (units ( unknown) date) 74.9 (50-75) % unknown) (unknown) (no (unknown) (unknown) No Action (units (unkn own) date) unknown) (unknown) (no (unknown) (unknown) Ondansetron HCl (units (unknown) date) (Ondansetron 4 unknown) Mg/2 Ml Inj) 4 mg IV NOW ONE (unknown) (no (unknown) (unknown) Ordered: (units (unkno wn) date) unknown) (unknown) (no (unknown) (unknown) Ordering (units (unkno wn) date) Provider: unknown) Lilian Armstrong D.O. (unknown) (no (unknown) (unknown) Orders (units (unkno wn) date) unknown) (unknown) (no (unknown) (unknown) Outside Echo (units (u nknown) date) unknown) (unknown) (no (unknown) (unknown) Oxygen Delivery (units (unknown) date) Method 01/21/22 unknown) 14:40 (unknown) (no (unknown) (unknown) Oxygen Delivery (units (unknown) date) Method Room Air unknown) Room Air (unknown) (no (unknown) (unknown) Oxygen Delivery (units (unknown) date) Method Room Air unknown) (unknown) (no (unknown) (unknown) Oxygen Delivery (units (unknown) date) Method unknown) (unknown) (no (unknown) (unknown) PELVIS: (units (unkno wn) date) unknown) (unknown) (no (unknown) (unknown) PRBC [Packed (units (u nknown) date) Cells] Stat unknown) (unknown) (no (unknown) (unknown) PROCEDURE:? CT (units (unknown) date) ABDOMEN PELVIS W unknown) CON (unknown) (no (unknown) (unknown) PROCEDURE:? XR (units (unknown) date) CHEST 1V unknown) (unknown) (no (unknown) (unknown) PT (10.1-12.7) (units (unknown) date) SECONDS unknown) (unknown) (no (unknown) (unknown) PT 18.6 H (units (unkn own) date) (10.1-12.7) unknown) SECONDS (unknown) (no (unknown) (unknown) Pancreas:? (units (unk nown) date) Unremarkable.? ? unknown) (unknown) (no (unknown) (unknown) Pantoprazole (units (u nknown) date) Sodium unknown) (Pantoprazole 40 Mg Vial) 80 mg IV NOW ONE (unknown) (no (unknown) (unknown) Partial (units (unkno wn) date) Thromboplastin unknown) Time Stat (unknown) (no (unknown) (unknown) Patient History (units (unknown) date) unknown) (unknown) (no (unknown) (unknown) Patient: (units (unkno wn) date) Rosalba Pabon MR#: unknown) M0000 (unknown) (no (unknown) (unknown) Patient: (units (unkno wn) date) Rosalba Pabon unknown) (unknown) (no (unknown) (unknown) Pelvic Nodes: No (units (unknown) date) enlarged lymph unknown) nodes.? (unknown) (no (unknown) (unknown) Pelvic Organs:? (units (unknown) date) Unremarkable.? ? unknown) (unknown) (no (unknown) (unknown) Peritoneum:? No (units (unknown) date) abnormal unknown) intraperitoneal fluid.? No free air.? (unknown) (no (unknown) (unknown) Chung Mcdonald, (units (unknown) date) DO [Primary Care unknown) Provider] (unknown) (no (unknown) (unknown) Plt Count (units (unkn own) date) (150-400) X103/uL unknown) (unknown) (no (unknown) (unknown) Plt Count 331 (units ( unknown) date) (150-400) X103/uL unknown) (unknown) (no (unknown) (unknown) Poikilocytosis 1+ (units (unknown) date) H unknown) (unknown) (no (unknown) (unknown) Poikilocytosis (units (unknown) date) unknown) (unknown) (no (unknown) (unknown) Polychromasia 1+ (units (unknown) date) H unknown) (unknown) (no (unknown) (unknown) Polychromasia (units ( unknown) date) unknown) (unknown) (no (unknown) (unknown) Potassium (units (unkn own) date) (3.4-5.1) mmol/L unknown) (unknown) (no (unknown) (unknown) Potassium 3.6 (units ( unknown) date) (3.4-5.1) mmol/L unknown) (unknown) (no (unknown) (unknown) Prescriptions: (units (unknown) date) unknown) (unknown) (no (unknown) (unknown) Previous Rx's (units ( unknown) date) unknown) (unknown) (no (unknown) (unknown) Procedure: CT (units ( unknown) date) abdomen pelvis w unknown) con (unknown) (no (unknown) (unknown) Procedure: XR (units ( unknown) date) chest 1V unknown) (unknown) (no (unknown) (unknown) Prothrombin Time (units (unknown) date) INR Stat unknown) (unknown) (no (unknown) (unknown) Pulmonary (units (unkn own) date) hypertension unknown) (unknown) (no (unknown) (unknown) Pulse Oximetry 94 (units (unknown) date) unknown) (unknown) (no (unknown) (unknown) Pulse Oximetry 96 (units (unknown) date) 01/21/22 14:40 unknown) (unknown) (no (unknown) (unknown) Pulse Oximetry 96 (units (unknown) date) 99 94 unknown) (unknown) (no (unknown) (unknown) Pulse Oximetry (units (unknown) date) unknown) (unknown) (no (unknown) (unknown) Pulse Rate 105 H (units (unknown) date) 01/21/22 14:40 unknown) (unknown) (no (unknown) (unknown) Pulse Rate 105 H (units (unknown) date) 106 H 110 H unknown) (unknown) (no (unknown) (unknown) Pulse Rate 109 H (units (unknown) date) 112 H unknown) (unknown) (no (unknown) (unknown) Pulse Rate 111 H (units (unknown) date) 110 H unknown) (unknown) (no (unknown) (unknown) Pulse Rate (units (unk nown) date) unknown) (unknown) (no (unknown) (unknown) RBC (4.0-5.2) (units ( unknown) date) X106/uL unknown) (unknown) (no (unknown) (unknown) RBC 1.68 L (units (unk nown) date) (4.0-5.2) X106/uL unknown) (unknown) (no (unknown) (unknown) RBC Morphology (units (unknown) date) Not Reportable unknown) (unknown) (no (unknown) (unknown) RBC Morphology (units (unknown) date) unknown) (unknown) (no (unknown) (unknown) RDW (11.6-14.8) % (units (unknown) date) unknown) (unknown) (no (unknown) (unknown) RDW 21.9 H (units (unk nown) date) (11.6-14.8) % unknown) (unknown) (no (unknown) (unknown) RESPIRATORY: (units (u nknown) date) Breath sounds unknown) equal bilaterally, no wheezes rales or rhonchi. (unknown) (no (unknown) (unknown) ROS Unobtainable: (units (unknown) date) All systems unknown) reviewed + are unremarkable except as noted in HPI (unknown) (no (unknown) (unknown) Radiologist's (units ( unknown) date) Impression: unknown) (unknown) (no (unknown) (unknown) Referrals: (units (unk nown) date) unknown) (unknown) (no (unknown) (unknown) Related Data (units (u nknown) date) unknown) (unknown) (no (unknown) (unknown) Respiratory Rate (units (unknown) date) 18 01/21/22 14:40 unknown) (unknown) (no (unknown) (unknown) Respiratory Rate (units (unknown) date) 18 25 H 27 H unknown) (unknown) (no (unknown) (unknown) Respiratory Rate (units (unknown) date) 25 H 28 H unknown) (unknown) (no (unknown) (unknown) Respiratory Rate (units (unknown) date) 28 H unknown) (unknown) (no (unknown) (unknown) Respiratory Rate (units (unknown) date) unknown) (unknown) (no (unknown) (unknown) Restless leg (units (u nknown) date) syndrome unknown) (unknown) (no (unknown) (unknown) Result diagrams: (units (unknown) date) unknown) (unknown) (no (unknown) (unknown) Review of Systems (units (unknown) date) unknown) (unknown) (no (unknown) (unknown) Right-sided low (units (unknown) date) back pain with unknown) sciatica (unknown) (no (unknown) (unknown) Jose G Nagel (units (unknown) date) unknown) (unknown) (no (unknown) (unknown) Rx Instructions: (units (unknown) date) unknown) (unknown) (no (unknown) (unknown) SARS-CoV-2 (PCR) (units (unknown) date) (Negative) unknown) (unknown) (no (unknown) (unknown) SARS-CoV-2 (PCR) (units (unknown) date) Negative unknown) (Negative) (unknown) (no (unknown) (unknown) SKIN: Warm, dry, (units (unknown) date) no petechiae, no unknown) rashes or lesions. (unknown) (no (unknown) (unknown) She does still (units (unknown) date) smoke, she drinks unknown) 2-3 white claws daily, no illicit. She is (unknown) (no (unknown) (unknown) Sigmoid (units (unkno wn) date) diverticulosis is unknown) seen without evidence of acute diverticulitis.? No (unknown) (no (unknown) (unknown) Signed By: (units (unk nown) date) unknown) (unknown) (no (unknown) (unknown) Signed (units (unkno wn) date) unknown) (unknown) (no (unknown) (unknown) Sinus tachycardia (units (unknown) date) rate of 110 VT 146 unknown) QRS 88 QTC 481. No acute ST elevation. (unknown) (no (unknown) (unknown) Smoking Status: (units (unknown) date) Current every day unknown) smoker (unknown) (no (unknown) (unknown) Social History (units (unknown) date) (Reviewed 01/21/22 unknown) @ 15:14 by Lilian Armstrong DO) (unknown) (no (unknown) (unknown) Sodium (137-145) (units (unknown) date) mmol/L unknown) (unknown) (no (unknown) (unknown) Sodium 135 L (units (u nknown) date) (137-145) mmol/L unknown) (unknown) (no (unknown) (unknown) Source: patient (units (unknown) date) unknown) (unknown) (no (unknown) (unknown) Spiriva with (units (u nknown) date) HandiHaler 18 mcg unknown) capsule, w/inhalation device (unknown) (no (unknown) (unknown) Spleen:? Spleen (units (unknown) date) is normal in unknown) size.? Focal calcification in anterior aspect of (unknown) (no (unknown) (unknown) Staph skin (units (unk nown) date) infection unknown) (unknown) (no (unknown) (unknown) Stated complaint: (units (unknown) date) Coffee ground unknown) emesis, CHF, +thinners (unknown) (no (unknown) (unknown) Stomach and (units (un known) date) Bowel:? There is a unknown) small hiatal hernia.? No bowel obstruction.? No (unknown) (no (unknown) (unknown) Stop: 01/21/22 (units (unknown) date) 14:56 unknown) (unknown) (no (unknown) (unknown) Stop: 01/21/22 (units (unknown) date) 15:06 unknown) (unknown) (no (unknown) (unknown) Substance Use (units ( unknown) date) Type: does not use unknown) (unknown) (no (unknown) (unknown) Surgical History (units (unknown) date) (Reviewed 01/21/22 unknown) @ 15:14 by Lilian Armstrong DO) (unknown) (no (unknown) (unknown) Surgical changes (units (unknown) date) and devices:? unknown) None.? (unknown) (no (unknown) (unknown) TECHNIQUE:? One (units (unknown) date) view of the chest unknown) was acquired.? (unknown) (no (unknown) (unknown) TECHNIQUE:? (units (un known) date) unknown) (unknown) (no (unknown) (unknown) Tachycardia (units (un known) date) unknown) (unknown) (no (unknown) (unknown) This is a (units (unkno wn) date) 56-year-old female unknown) who comes in with complaint of melanotic stools and (unknown) (no (unknown) (unknown) This is a (units (unkn own) date) 56-year-old female unknown) with history of pulmonary hypertension, COPD, CHF, (unknown) (no (unknown) (unknown) Time Seen by (units (u nknown) date) Provider: 01/21/22 unknown) 14:54 (unknown) (no (unknown) (unknown) Time: 16:08 (units (un known) date) unknown) (unknown) (no (unknown) (unknown) Total Bilirubin (units (unknown) date) (0.2-1.3) mg/dL unknown) (unknown) (no (unknown) (unknown) Total Bilirubin (units (unknown) date) 0.4 (0.2-1.3) unknown) mg/dL (unknown) (no (unknown) (unknown) Total Creatine (units (unknown) date) Kinase (30-135) unknown) U/L (unknown) (no (unknown) (unknown) Total Creatine (units (unknown) date) Kinase 41 (30-135) unknown) U/L (unknown) (no (unknown) (unknown) Total Protein (units ( unknown) date) (6.3-8.2) g/dL unknown) (unknown) (no (unknown) (unknown) Total Protein 5.4 (units (unknown) date) L (6.3-8.2) g/dL unknown) (unknown) (no (unknown) (unknown) Troponin + CK (units ( unknown) date) Cardiac Panel Stat unknown) (unknown) (no (unknown) (unknown) Troponin I < (units (u nknown) date) 0.012 (0.01-0.034) unknown) ng/mL (unknown) (no (unknown) (unknown) Troponin I (units (unk nown) date) (0.01-0.034) ng/mL unknown) (unknown) (no (unknown) (unknown) Type and Screen (units (unknown) date) Stat unknown) (unknown) (no (unknown) (unknown) Ventral Wall: ? (units (unknown) date) Tiny umbilical unknown) hernia is seen containing fat only. (unknown) (no (unknown) (unknown) Vessels:? Aorta (units (unknown) date) and inferior vena unknown) cava are normal in size.? (unknown) (no (unknown) (unknown) Vital Signs - 8 (units (unknown) date) hr unknown) (unknown) (no (unknown) (unknown) Vital Signs (units (un known) date) unknown) (unknown) (no (unknown) (unknown) Vital signs: (units (u nknown) date) unknown) (unknown) (no (unknown) (unknown) WBC (4.5-11.0) (units (unknown) date) X103/uL unknown) (unknown) (no (unknown) (unknown) WBC 11.5 H (units (unk nown) date) (4.5-11.0) X103/uL unknown) (unknown) (no (unknown) (unknown) Fleming,Mg (units (u nknown) date) unknown) (unknown) (no (unknown) (unknown) XR chest 1V Stat (units (unknown) date) unknown) (unknown) (no (unknown) (unknown) XRay Report (units (un known) date) unknown) (unknown) (no (unknown) (unknown) Xarelto. (units (unkno wn) date) unknown) (unknown) (no (unknown) (unknown) SirishaChandana (units (unkn own) date) unknown) (unknown) (no (unknown) (unknown) Sebastian Carrera (units (unkno wn) date) unknown) (unknown) (no (unknown) (unknown) [Embedded Image (units (unknown) date) Not Available] unknown) (unknown) (no (unknown) (unknown) [From NASONEX] (units (unknown) date) unknown) (unknown) (no (unknown) (unknown) abscess (units (unkno wn) date) unknown) (unknown) (no (unknown) (unknown) acute (units (unkno wn) date) unknown) (unknown) (no (unknown) (unknown) adjustment (units (unk nown) date) unknown) (unknown) (no (unknown) (unknown) aerosol inhaler (units (unknown) date) (Ventolin HFA) unknown) shortness of breath or wheezing (unknown) (no (unknown) (unknown) albuterol sulfate (units (unknown) date) 90 mcg/actuation 1 unknown) puff inhalation Q6H PRN 11/14/21 (unknown) (no (unknown) (unknown) albuterol sulfate (units (unknown) date) [Ventolin HFA] 90 unknown) mcg/actuation HFA aerosol inhaler (unknown) (no (unknown) (unknown) alcohol intake (units (unknown) date) frequency: 3 or unknown) more drinks per day (unknown) (no (unknown) (unknown) alcohol intake: (units (unknown) date) current unknown) (unknown) (no (unknown) (unknown) amlodipine 5 mg (units (unknown) date) tablet 5 mg PO BID unknown) 01/02/22 01/02/22 (unknown) (no (unknown) (unknown) amlodipine 5 mg (units (unknown) date) tablet unknown) (unknown) (no (unknown) (unknown) amoxicillin 875 (units (unknown) date) mg-potassium 1 tab unknown) PO Q12H #20 tabs 05/25/21 (unknown) (no (unknown) (unknown) amoxicillin-pot (units (unknown) date) clavulanate unknown) [Augmentin] 875-125 mg tablet (unknown) (no (unknown) (unknown) and below (units (unkn own) date) unknown) (unknown) (no (unknown) (unknown) and lumbar (units (unk nown) date) unknown) (unknown) (no (unknown) (unknown) angustifolia) (units ( unknown) date) sinus unknown) (unknown) (no (unknown) (unknown) appear (units (unkno wn) date) unknown) (unknown) (no (unknown) (unknown) atrial (units (unkno wn) date) fibrillation on unknown) Xarelto with complaint of coffee-ground emesis and (unknown) (no (unknown) (unknown) avascular (units (unkn own) date) unknown) (unknown) (no (unknown) (unknown) bases to the (units (u nknown) date) pubic symphysis.? unknown) Coronal and sagittal reformats were performed.? (unknown) (no (unknown) (unknown) been taking (units (un known) date) ibuprofen 8 unknown) tablets of 200 mg ibuprofen. (unknown) (no (unknown) (unknown) breath. She is (units (unknown) date) had nausea and unknown) vomiting she states she is thrown up 5 times (unknown) (no (unknown) (unknown) breathe (units (unkno wn) date) unknown) (unknown) (no (unknown) (unknown) breathing (units (unkn own) date) unknown) (unknown) (no (unknown) (unknown) cannot (units (unkno wn) date) unknown) (unknown) (no (unknown) (unknown) clavulanate 125 (units (unknown) date) mg tablet unknown) (unknown) (no (unknown) (unknown) clobetasol 0.05 % (units (unknown) date) scalp solution 1 unknown) applic topical BEDTIME #25 mL 03/03/21 (unknown) (no (unknown) (unknown) clobetasol 0.05 % (units (unknown) date) solution unknown) (unknown) (no (unknown) (unknown) closes, (units (unkno wn) date) unknown) (unknown) (no (unknown) (unknown) coffee-ground (units ( unknown) date) emesis that has unknown) been intermittent over time. Patient is (unknown) (no (unknown) (unknown) collection. (units (un known) date) unknown) (unknown) (no (unknown) (unknown) compression (units (un known) date) fracture.? Right unknown) worse than left bilateral hip joint (unknown) (no (unknown) (unknown) congestion (units (unk nown) date) unknown) (unknown) (no (unknown) (unknown) conjunctival (units (u nknown) date) pallor face unknown) symmetric, moist mucous membranes (unknown) (no (unknown) (unknown) current plan. (units ( unknown) date) Asks for formal unknown) consult to be placed. (unknown) (no (unknown) (unknown) discrete (units (unkno wn) date) unknown) (unknown) (no (unknown) (unknown) extremities (units (un known) date) unknown) (unknown) (no (unknown) (unknown) fracture.? (units (unk nown) date) unknown) (unknown) (no (unknown) (unknown) gastric or (units (unk nown) date) unknown) (unknown) (no (unknown) (unknown) grass pollen (units (u nknown) date) Allergy sinus unknown) Verified 01/02/22 13:27 (unknown) (no (unknown) (unknown) guarding or (units (un known) date) rebound, rigidity, unknown) no mass, positive stool occult with black stool. (unknown) (no (unknown) (unknown) has resolved when (units (unknown) date) she is not unknown) exerting herself as well as feels actively short of (unknown) (no (unknown) (unknown) hepatic lesion. (units (unknown) date) unknown) (unknown) (no (unknown) (unknown) intact (units (unkno wn) date) unknown) (unknown) (no (unknown) (unknown) lavender (units (unkno wn) date) (Lavandula Allergy unknown) severe Verified 01/02/22 13:27 (unknown) (no (unknown) (unknown) like since (units (unk nown) date) Wednesday. Patient unknown) denies any swelling of extremities. She is had a (unknown) (no (unknown) (unknown) melanotic stools (units (unknown) date) since Wednesday or unknown) Wednesday the 18 of January. Patient also notes (unknown) (no (unknown) (unknown) metoprolol (units (unk nown) date) succinate 50 mg 50 unknown) mg PO BID #180 tabs 01/02/22 (unknown) (no (unknown) (unknown) metoprolol (units (unk nown) date) succinate 50 mg unknown) tablet extended release 24 hr (unknown) (no (unknown) (unknown) mild leukocytosis (units (unknown) date) and appropriate unknown) platelets. Patient is anticoagulated on (unknown) (no (unknown) (unknown) mometasone (units (unk nown) date) furoate Allergy unknown) Unknown Verified 01/02/22 13:27 (unknown) (no (unknown) (unknown) necrosis of (units (un known) date) femoral head.? unknown) Degenerative disc disease throughout lower thoracic (unknown) (no (unknown) (unknown) not felt well she (units (unknown) date) is felt unknown) increasingly fatigued lightheaded like she is going to (unknown) (no (unknown) (unknown) obstruction (units (un known) date) unknown) (unknown) (no (unknown) (unknown) of mA and/or kV (units (unknown) date) according to unknown) patient size.? (unknown) (no (unknown) (unknown) or abnormal bowel (units (unknown) date) wall thickening.? unknown) No free fluid or free air. (unknown) (no (unknown) (unknown) osteoarthritis.? (units (unknown) date) unknown) (unknown) (no (unknown) (unknown) pass out she has (units (unknown) date) not had actual unknown) syncope, she has had some chest pressure which (unknown) (no (unknown) (unknown) pine tanya Allergy (units (unknown) date) Severe throat unknown) Uncoded 01/02/22 13:27 (unknown) (no (unknown) (unknown) pramipexole 0.25 (units (unknown) date) mg tablet 0.25 mg unknown) PO BEDTIME #90 tabs 01/02/22 (unknown) (no (unknown) (unknown) pramipexole (units (un known) date) [Mirapex] 0.25 mg unknown) tablet (unknown) (no (unknown) (unknown) prior complete (units ( unknown) date) hysterectomy, she unknown) is supposed to be seen for EGD and colonoscopy. (unknown) (no (unknown) (unknown) puncture 1 cap (units (unknown) date) using device; one unknown) dose = 2 inhalations (unknown) (no (unknown) (unknown) quit status: has (units (unknown) date) quit before unknown) (unknown) (no (unknown) (unknown) radiation dose (units (unknown) date) reduction, the unknown) following was used:? automated exposure control, (unknown) (no (unknown) (unknown) release 24 hr (units ( unknown) date) (Detrol LA) unknown) (unknown) (no (unknown) (unknown) seen. (units (unkno wn) date) unknown) (unknown) (no (unknown) (unknown) she was having (units (unknown) date) episodes at least unknown) a couple weeks ago. Patient has noted she has (unknown) (no (unknown) (unknown) since Wednesday. She (units (unknown) date) has had multiple unknown) lack stools that she describes as diarrhea (unknown) (no (unknown) (unknown) small bowel wall (units (unknown) date) thickening.? No unknown) colonic wall thickening.? No mesenteric fat (unknown) (no (unknown) (unknown) spine is seen. (units (unknown) date) unknown) (unknown) (no (unknown) (unknown) spironolactone 25 (units (unknown) date) mg tablet 25 mg PO unknown) DAILY 03/03/21 01/02/22 (unknown) (no (unknown) (unknown) spironolactone 25 (units (unknown) date) mg tablet unknown) (unknown) (no (unknown) (unknown) spleen is (units (unkn own) date) unknown) (unknown) (no (unknown) (unknown) stranding.? (units (un known) date) unknown) (unknown) (no (unknown) (unknown) swelling (units (unkno wn) date) bilateral lower unknown) extremities. (unknown) (no (unknown) (unknown) swelling, (units (unkn own) date) unknown) (unknown) (no (unknown) (unknown) tablet,extended (units (unknown) date) release 24 hr unknown) (unknown) (no (unknown) (unknown) tachycardic (units (un known) date) hypotensive quite unknown) pale. Initial labs show a hemoglobin of 3.9, with (unknown) (no (unknown) (unknown) the lung (units (unkno wn) date) unknown) (unknown) (no (unknown) (unknown) tiotropium (units (unk nown) date) bromide 18 mcg unknown) capsule 1 cap inhalation DAILY #90 10/28/20 (unknown) (no (unknown) (unknown) tobacco type: (units ( unknown) date) cigarettes unknown) (unknown) (no (unknown) (unknown) tolterodine 2 mg (units (unknown) date) capsule,extended 2 unknown) mg PO BEDTIME #90 caps 01/02/22 (unknown) (no (unknown) (unknown) tolterodine (units (un known) date) [Detrol LA] 2 mg unknown) capsule,extended release 24hr (unknown) (no (unknown) (unknown) trouble (units (unkno wn) date) unknown) (unknown) (no (unknown) (unknown) unremarkable.? (units (unknown) date) unknown) (unknown) (no (unknown) (unknown) with HandiHaler) (units (unknown) date) unknown) (unknown) (no (unknown) (unknown) with inhalation (units (unknown) date) device (Spiriva unknown) inhalations Result panel 18 (unknown) (no date) (unknown) (unknown) TRANSFUSED (units (un known) PRODUCT: Packed unknown) Cells COUNT: 1 Result panel 19 (unknown) (no date) (unknown) (unknown) TRANSFUSED (units (un known) PRODUCT: Packed unknown) Cells COUNT: 1 Result panel 20 (unknown) (no date) (unknown) (unknown) TRANSFUSED (units (un known) PRODUCT: Packed unknown) Cells COUNT: 1 Result panel 21 (unknown) (no date) (unknown) (unknown) TRANSFUSED (units (un known) PRODUCT: Packed unknown) Cells COUNT: 1 Result panel 22 (unknown) (no date) (unknown) (unknown) TRANSFUSED (units (un known) PRODUCT: Packed unknown) Cells COUNT: 1 Result panel 23 (unknown) (no date) (unknown) (unknown) TRANSFUSED (units (un known) PRODUCT: Packed unknown) Cells COUNT: 1 Result panel 24 (unknown) (no date) (unknown) (unknown) TRANSFUSED (units (un known) PRODUCT: Packed unknown) Cells COUNT: 2 Result panel 25 (unknown) (no (unknown) (unknown) (no value) (units (unk nown) date) unknown) (unknown) (no (unknown) (unknown) #18 grams (units (unkn own) date) unknown) (unknown) (no (unknown) (unknown) <Electronically (units (unknown) date) signed by Lilian morales) Denys Armstrong> (unknown) (no (unknown) (unknown) (Augmentin) (units (un known) date) unknown) (unknown) (no (unknown) (unknown) (Mirapex) (units (unkn own) date) unknown) (unknown) (no (unknown) (unknown) 05/25/21 (units (unkno wn) date) unknown) (unknown) (no (unknown) (unknown) 09/14/18 (units (unkno wn) date) unknown) (unknown) (no (unknown) (unknown) 10/08/19 (units (unkno wn) date) unknown) (unknown) (no (unknown) (unknown) 10/11/19 (units (unkno wn) date) unknown) (unknown) (no (unknown) (unknown) 10/22/20 (units (unkno wn) date) unknown) (unknown) (no (unknown) (unknown) 11/16/19 (units (unkno wn) date) unknown) (unknown) (no (unknown) (unknown) 11/15/20 (units (unkno wn) date) unknown) (unknown) (no (unknown) (unknown) 12/04/20 (units (unkno wn) date) unknown) (unknown) (no (unknown) (unknown) 1. Sigmoid (units (unk nown) date) diverticulosis unknown) without evidence of acute diverticulitis.? No bowel (unknown) (no (unknown) (unknown) 01/21/22 01/21/22 (units (unknown) date) 01/21/22 unknown) Range/Units (unknown) (no (unknown) (unknown) 01/21/22 14:50 (units (unknown) date) unknown) (unknown) (no (unknown) (unknown) 01/21/22 14:53 (units (unknown) date) unknown) (unknown) (no (unknown) (unknown) 01/21/22 14:54 (units (unknown) date) unknown) (unknown) (no (unknown) (unknown) 01/21/22 15:05 (units (unknown) date) unknown) (unknown) (no (unknown) (unknown) 01/21/22 16:06 (units (unknown) date) unknown) (unknown) (no (unknown) (unknown) 01/21/22 1801 (units ( unknown) date) unknown) (unknown) (no (unknown) (unknown) 01/21/22 (units (unkno wn) date) Range/Units unknown) (unknown) (no (unknown) (unknown) 01/21/22 (units (unkno wn) date) unknown) (unknown) (no (unknown) (unknown) [address] [place] [address] (units (unknown) date) unknown) (unknown) (no (unknown) (unknown) 14:40 01/21/22 (units (unknown) date) unknown) (unknown) (no (unknown) (unknown) 14:50 14:50 14:50 (units (unknown) date) unknown) (unknown) (no (unknown) (unknown) 14:50 (units (unkno wn) date) unknown) (unknown) (no (unknown) (unknown) 14:55 01/21/22 (units (unknown) date) unknown) (unknown) (no (unknown) (unknown) 15:00 (units (unkno wn) date) unknown) (unknown) (no (unknown) (unknown) 15:23 01/21/22 (units (unknown) date) unknown) (unknown) (no (unknown) (unknown) 15:24 01/21/22 (units (unknown) date) unknown) (unknown) (no (unknown) (unknown) 15:24 (units (unkno wn) date) unknown) (unknown) (no (unknown) (unknown) 15:30 01/21/22 (units (unknown) date) unknown) (unknown) (no (unknown) (unknown) 15:38 01/21/22 (units (unknown) date) unknown) (unknown) (no (unknown) (unknown) 15:38 (units (unkno wn) date) unknown) (unknown) (no (unknown) (unknown) 15:45 01/21/22 (units (unknown) date) unknown) (unknown) (no (unknown) (unknown) 16:00 01/21/22 (units (unknown) date) unknown) (unknown) (no (unknown) (unknown) 16:00 (units (unkno wn) date) unknown) (unknown) (no (unknown) (unknown) 16:02 01/21/22 (units (unknown) date) unknown) (unknown) (no (unknown) (unknown) 16:02 (units (unkno wn) date) unknown) (unknown) (no (unknown) (unknown) 16:10 01/21/22 (units (unknown) date) unknown) (unknown) (no (unknown) (unknown) 16:15 (units (unkno wn) date) unknown) (unknown) (no (unknown) (unknown) 2. Hepatic (units (unk nown) date) steatosis, no unknown) discrete hepatic lesion. (unknown) (no (unknown) (unknown) 3. Degenerative (units (unknown) date) disc disease unknown) throughout lower thoracic and lumbar spine.? No (unknown) (no (unknown) (unknown) [id number] (units (unkno wn) date) unknown) (unknown) (no (unknown) (unknown) ? (units (unkno wn) date) unknown) (unknown) (no (unknown) (unknown) ABDOMEN: Soft, (units (unknown) date) nontender. unknown) Normoactive bowel sounds all 4 quadrants. No (unknown) (no (unknown) (unknown) ABDOMEN: (units (unkno wn) date) unknown) (unknown) (no (unknown) (unknown) ALT (<35) IU/L (units (unknown) date) unknown) (unknown) (no (unknown) (unknown) ALT 14 (<35) IU/L (units (unknown) date) unknown) (unknown) (no (unknown) (unknown) APTT (26-36) (units (u nknown) date) SECONDS unknown) (unknown) (no (unknown) (unknown) APTT 25 L (26-36) (units (unknown) date) SECONDS unknown) (unknown) (no (unknown) (unknown) AST (14-36) IU/L (units (unknown) date) unknown) (unknown) (no (unknown) (unknown) AST 45 H (14-36) (units (unknown) date) IU/L unknown) (unknown) (no (unknown) (unknown) Abdomen (units (unkno wn) date) Ultrasound unknown) (Signed) (unknown) (no (unknown) (unknown) Abdomen/Pelvis CT (units (unknown) date) (Signed) unknown) (unknown) (no (unknown) (unknown) Abdominal Nodes:? (units (unknown) date) No retroperitoneal unknown) or mesenteric adenopathy by size criteria.? (unknown) (no (unknown) (unknown) Abdominal pain (units (unknown) date) unknown) (unknown) (no (unknown) (unknown) Accession Number: (units (unknown) date) [id number] ?? unknown) (unknown) (no (unknown) (unknown) Accession Number: (units (unknown) date) [id number] ?? unknown) (unknown) (no (unknown) (unknown) Acct:[id number] (units (unknown) date) unknown) (unknown) (no (unknown) (unknown) Admit Date/Time: (units (unknown) date) 01/21/22 16:17 unknown) (unknown) (no (unknown) (unknown) Admit Provider: (units (unknown) date) Stevo Lewis unknown) (unknown) (no (unknown) (unknown) Adrenal Glands:? (units (unknown) date) Unremarkable.? ? unknown) (unknown) (no (unknown) (unknown) After the (units (unkn own) date) administration of unknown) intravenous contrast, axial sections acquired from (unknown) (no (unknown) (unknown) Age/Sex: 56 / F (units (unknown) date) unknown) (unknown) (no (unknown) (unknown) Albumin (3.5-5.0) (units (unknown) date) g/dL unknown) (unknown) (no (unknown) (unknown) Albumin 2.9 L (units ( unknown) date) (3.5-5.0) g/dL unknown) (unknown) (no (unknown) (unknown) Albumin/Globulin (units (unknown) date) Ratio (1.0-2.8) unknown) (unknown) (no (unknown) (unknown) Albumin/Globulin (units (unknown) date) Ratio 1.2 unknown) (1.0-2.8) (unknown) (no (unknown) (unknown) Alkaline (units (unkno wn) date) Phosphatase unknown) (38-126) U/L (unknown) (no (unknown) (unknown) Alkaline (units (unkno wn) date) Phosphatase 39 unknown) (38-126) U/L (unknown) (no (unknown) (unknown) Allergic (units (unkno wn) date) dermatitis of unknown) eyelids of both eyes (unknown) (no (unknown) (unknown) Allergies (units (unkn own) date) unknown) (unknown) (no (unknown) (unknown) Allergy/AdvReac (units (unknown) date) Type Severity unknown) Reaction Status Date / Time (unknown) (no (unknown) (unknown) [place], [place] (units ( unknown) date) [id number] unknown) (unknown) (no (unknown) (unknown) Anemia (units (unkno wn) date) unknown) (unknown) (no (unknown) (unknown) Anisocytosis 2+ H (units (unknown) date) unknown) (unknown) (no (unknown) (unknown) Anisocytosis (units (u nknown) date) unknown) (unknown) (no (unknown) (unknown) Antibody Screen (units (unknown) date) Negative unknown) (unknown) (no (unknown) (unknown) Antibody Screen (units (unknown) date) unknown) (unknown) (no (unknown) (unknown) Approved by: Augustus Orozcounits (unknown) dateYolanda Aguirre M.D. on unknown) 01/21/2022 at 15:30?? (unknown) (no (unknown) (unknown) Arthritis (units (unkn own) date) (Unknown) unknown) (unknown) (no (unknown) (unknown) Asthma (Unknown) (units (unknown) date) unknown) (unknown) (no (unknown) (unknown) Asthma (units (unkno wn) date) unknown) (unknown) (no (unknown) (unknown) Attestation: I (units (unknown) date) personally unknown) reviewed and interpreted this ECG as follows: (unknown) (no (unknown) (unknown) Attestation: (units (u nknown) date) unknown) (unknown) (no (unknown) (unknown) BNP [NT-proBNP (units (unknown) date) (BNP-Adult 18+)] unknown) Stat (unknown) (no (unknown) (unknown) BUN (7-17) mg/dL (units (unknown) date) unknown) (unknown) (no (unknown) (unknown) BUN 37 H (7-17) (units (unknown) date) mg/dL unknown) (unknown) (no (unknown) (unknown) BUN/Creatinine (units (unknown) date) Ratio (6-22) unknown) (unknown) (no (unknown) (unknown) BUN/Creatinine (units (unknown) date) Ratio 47.4 H unknown) (-) (unknown) (no (unknown) (unknown) Baso # (Auto) (units ( unknown) date) (0-100) /uL unknown) (unknown) (no (unknown) (unknown) Baso # (Auto) 100 (units (unknown) date) (0-100) /uL unknown) (unknown) (no (unknown) (unknown) Baso % (Auto) (units ( unknown) date) (0-2) % unknown) (unknown) (no (unknown) (unknown) Baso % (Auto) 0.6 (units (unknown) date) (0-2) % unknown) (unknown) (no (unknown) (unknown) Biliary ducts:? (units (unknown) date) Unremarkable.? ? unknown) (unknown) (no (unknown) (unknown) Bladder:? (units (unkn own) date) Unremarkable.? ? unknown) (unknown) (no (unknown) (unknown) Blood Pressure (units (unknown) date) 102/53 L 01/21/22 unknown) 14:40 (unknown) (no (unknown) (unknown) Blood Pressure (units (unknown) date) 102/53 L unknown) (unknown) (no (unknown) (unknown) Blood Pressure (units (unknown) date) 104/51 L unknown) (unknown) (no (unknown) (unknown) Blood Pressure (units (unknown) date) 105/51 L unknown) (unknown) (no (unknown) (unknown) Blood Pressure (units (unknown) date) 113/51 L 91/44 L unknown) (unknown) (no (unknown) (unknown) Blood Pressure (units (unknown) date) 88/48 L unknown) (unknown) (no (unknown) (unknown) Blood Pressure (units (unknown) date) 90/49 L unknown) (unknown) (no (unknown) (unknown) Blood Type O (units (u nknown) date) Negative unknown) (unknown) (no (unknown) (unknown) Blood Type (units (unk nown) date) unknown) (unknown) (no (unknown) (unknown) Bones and chest (units (unknown) date) wall:? No unknown) suspicious bony lesions.? Overlying soft tissues (unknown) (no (unknown) (unknown) Bones:? No (units (unk nown) date) suspicious bony unknown) lesion.? No acute vertebral body compression (unknown) (no (unknown) (unknown) CARDIOVASCULAR: (units (unknown) date) Regular rate and unknown) rhythm without murmurs, rubs or gallops. No (unknown) (no (unknown) (unknown) CK-MB (CK-2) Rel (units (unknown) date) Index TNP unknown) (unknown) (no (unknown) (unknown) CK-MB (CK-2) Rel (units (unknown) date) Index unknown) (unknown) (no (unknown) (unknown) CK-MB (CK-2) TNP (units (unknown) date) unknown) (unknown) (no (unknown) (unknown) CK-MB (CK-2) (units (u nknown) date) unknown) (unknown) (no (unknown) (unknown) COMPARISON:? (units (u nknown) date) [facility], unknown) CR, XR CHEST 1V, 05/25/2021, 11:07. (unknown) (no (unknown) (unknown) COMPARISON:? (units (u nknown) date) None. unknown) (unknown) (no (unknown) (unknown) COPD (chronic (units ( unknown) date) obstructive unknown) pulmonary disease) (unknown) (no (unknown) (unknown) COVID19 -Nasal (units (unknown) date) RAPID/Pre-Proc unknown) Stat (unknown) (no (unknown) (unknown) CT Scan Report (units (unknown) date) unknown) (unknown) (no (unknown) (unknown) CT abdomen pelvis (units (unknown) date) w con Stat unknown) (unknown) (no (unknown) (unknown) CT scan - (units (unkn own) date) abdomen/pelvis: unknown) (unknown) (no (unknown) (unknown) Calcium (units (unkno wn) date) (8.4-10.2) mg/dL unknown) (unknown) (no (unknown) (unknown) Calcium 7.9 L (units ( unknown) date) (8.4-10.2) mg/dL unknown) (unknown) (no (unknown) (unknown) Carbon Dioxide (units (unknown) date) (22-32) mmol/L unknown) (unknown) (no (unknown) (unknown) Carbon Dioxide 28 (units (unknown) date) (22-32) mmol/L unknown) (unknown) (no (unknown) (unknown) Carpal tunnel (units ( unknown) date) syndrome (-2017) unknown) (unknown) (no (unknown) (unknown) Chest X-Ray (units (un known) date) (Signed) unknown) (unknown) (no (unknown) (unknown) Chest x-ray: (units (u nknown) date) unknown) (unknown) (no (unknown) (unknown) Chief complaint: (units (unknown) date) GI Bleed unknown) (unknown) (no (unknown) (unknown) Chloride (98-107) (units (unknown) date) mmol/L unknown) (unknown) (no (unknown) (unknown) Chloride 100 (units (u nknown) date) (98-107) mmol/L unknown) (unknown) (no (unknown) (unknown) Chronic atrial (units (unknown) date) fibrillation unknown) (unknown) (no (unknown) (unknown) Clinical (units (unkno wn) date) Impression: unknown) (unknown) (no (unknown) (unknown) Close (units (unkno wn) date) unknown) (unknown) (no (unknown) (unknown) Complete Blood (units (unknown) date) Count AUTO DIFF unknown) Stat (unknown) (no (unknown) (unknown) Comprehensive (units ( unknown) date) Metabolic Panel unknown) Stat (unknown) (no (unknown) (unknown) Consult to (units (unk nown) date) General Surgery unknown) Stat (unknown) (no (unknown) (unknown) Consultation #1: (units (unknown) date) unknown) (unknown) (no (unknown) (unknown) Consultation #2: (units (unknown) date) unknown) (unknown) (no (unknown) (unknown) Consultations (units ( unknown) date) unknown) (unknown) (no (unknown) (unknown) Cor pulmonale (units ( unknown) date) (chronic) unknown) (unknown) (no (unknown) (unknown) Course (units (unkno wn) date) unknown) (unknown) (no (unknown) (unknown) Creatinine (units (unk nown) date) (0.52-1.04) mg/dL unknown) (unknown) (no (unknown) (unknown) Creatinine 0.78 (units (unknown) date) (0.52-1.04) mg/dL unknown) (unknown) (no (unknown) (unknown) Critical Care (units ( unknown) date) Time unknown) (unknown) (no (unknown) (unknown) Critical Care (units ( unknown) date) Time: Yes unknown) (unknown) (no (unknown) (unknown) Crossmatch See (units (unknown) date) Detail unknown) (unknown) (no (unknown) (unknown) Crossmatch (units (unk nown) date) unknown) (unknown) (no (unknown) (unknown) : 1965 (units (unknown) date) Acct:[id number] unknown) (unknown) (no (unknown) (unknown) : 1965 (units (unknown) date) unknown) (unknown) (no (unknown) (unknown) Date of Service: (units (unknown) date) 01/21/22 unknown) (unknown) (no (unknown) (unknown) Departure (units (unkn own) date) unknown) (unknown) (no (unknown) (unknown) Depression not (units (unknown) date) appreciated. unknown) (unknown) (no (unknown) (unknown) Dictated by: Augustus (units (unknown) date) Kyra Aguirre on unknown) 01/21/2022 at 15:27 ? ? (unknown) (no (unknown) (unknown) Dictated by: Augustus (units (unknown) date) Kyra Aguirre on unknown) 01/21/2022 at 15:30 ? ? (unknown) (no (unknown) (unknown) Discharge Plan (units (unknown) date) unknown) (unknown) (no (unknown) (unknown) Discontinued (units (u nknown) date) Medications unknown) (unknown) (no (unknown) (unknown) Documented By: GISSELLE (units (unknown) date) unknown) (unknown) (no (unknown) (unknown) Dr. Clancy, (units ( unknown) date) general surgery. unknown) Happy to see patient. Discussed findings and (unknown) (no (unknown) (unknown) Dr. Lewis, (units (un known) date) hospitalist unknown) (unknown) (no (unknown) (unknown) ECG Data (units (unkno wn) date) unknown) (unknown) (no (unknown) (unknown) ED Orders (units (unkn own) date) unknown) (unknown) (no (unknown) (unknown) EKG Rpt. (units (unkno wn) date) unknown) (unknown) (no (unknown) (unknown) EKG-12 Lead Stat (units (unknown) date) unknown) (unknown) (no (unknown) (unknown) ER Physician: (units ( unknown) date) Lilian Armstrong D.O. unknown) (unknown) (no (unknown) (unknown) EXTREMITIES: (units (u nknown) date) Normal range of unknown) motion, no clubbing or edema. Neurovascularly (unknown) (no (unknown) (unknown) Eczema (units (unkno wn) date) unknown) (unknown) (no (unknown) (unknown) Emergency Report (units (unknown) date) unknown) (unknown) (no (unknown) (unknown) Eos # (Auto) (units (u nknown) date) (0-450) /uL unknown) (unknown) (no (unknown) (unknown) Eos # (Auto) 0 (units (unknown) date) (0-450) /uL unknown) (unknown) (no (unknown) (unknown) Eos % (Auto) (units (u nknown) date) (2-4) % unknown) (unknown) (no (unknown) (unknown) Eos % (Auto) 0.1 (units (unknown) date) L (2-4) % unknown) (unknown) (no (unknown) (unknown) Estimated GFR > (units (unknown) date) 60 (>60) mL/min unknown) (unknown) (no (unknown) (unknown) Estimated GFR (units ( unknown) date) (>60) mL/min unknown) (unknown) (no (unknown) (unknown) Ethanol (ETOH) (units (unknown) date) Stat unknown) (unknown) (no (unknown) (unknown) Ethyl Alcohol < (units (unknown) date) 10 ( - 10) mg/dL unknown) (unknown) (no (unknown) (unknown) Ethyl Alcohol ( - (units (unknown) date) 10) mg/dL unknown) (unknown) (no (unknown) (unknown) Exam Narrative: (units (unknown) date) unknown) (unknown) (no (unknown) (unknown) Exam (units (unkno wn) date) unknown) (unknown) (no (unknown) (unknown) FINDINGS:? (units (unk nown) date) unknown) (unknown) (no (unknown) (unknown) Face CT (Signed) (units (unknown) date) unknown) (unknown) (no (unknown) (unknown) Family History (units (unknown) date) (Reviewed 01/21/22 unknown) @ 15:14 by Lilian Armstrong DO) (unknown) (no (unknown) (unknown) Fentanyl (units (unkno wn) date) (Fentanyl 100 unknown) Mcg/2 Ml Inj) 25 mcg IV NOW ONE (unknown) (no (unknown) (unknown) For (units (unkno wn) date) unknown) (unknown) (no (unknown) (unknown) Furosemide (units (unk nown) date) (Furosemide 40 unknown) Mg/4 Ml Vial) 40 mg IV NOW ONE (unknown) (no (unknown) (unknown) GENERAL: Alert (units (unknown) date) and oriented x unknown) three, pale, obese female in moderate distress. (unknown) (no (unknown) (unknown) GI bleed, (units (unkn own) date) Hypotension, unknown) Symptomatic anemia (unknown) (no (unknown) (unknown) : No CVA (units (unk nown) date) tenderness unknown) (unknown) (no (unknown) (unknown) Gallbladder:? (units ( unknown) date) Unremarkable. unknown) (unknown) (no (unknown) (unknown) General (units (unkno wn) date) unknown) (unknown) (no (unknown) (unknown) Globulin (units (unkno wn) date) (1.7-4.1) g/dL unknown) (unknown) (no (unknown) (unknown) Globulin 2.5 (units (u nknown) date) (1.7-4.1) g/dL unknown) (unknown) (no (unknown) (unknown) Glucose (70-100) (units (unknown) date) mg/dL unknown) (unknown) (no (unknown) (unknown) Glucose 113 H (units ( unknown) date) (70-100) mg/dL unknown) (unknown) (no (unknown) (unknown) HEENT: Head (units (un known) date) normocephalic, unknown) atraumatic, EOMI, pupils reactive, positive for (unknown) (no (unknown) (unknown) HPI - GI Bleed (units (unknown) date) unknown) (unknown) (no (unknown) (unknown) HPI Narrative: (units (unknown) date) unknown) (unknown) (no (unknown) (unknown) Hct (36-46) % (units ( unknown) date) unknown) (unknown) (no (unknown) (unknown) Hct 12.8 L* (units (un known) date) (36-46) % unknown) (unknown) (no (unknown) (unknown) Heart:? No (units (unk nown) date) significant unknown) findings. (unknown) (no (unknown) (unknown) Hgb (12.0-16.0) (units (unknown) date) g/dL unknown) (unknown) (no (unknown) (unknown) Hgb 3.9 L* (units (unk nown) date) (12.0-16.0) g/dL unknown) (unknown) (no (unknown) (unknown) History of (units (unk nown) date) Present Illness unknown) (unknown) (no (unknown) (unknown) History of (units (unk nown) date) hysterectomy for unknown) cancer (unknown) (no (unknown) (unknown) Home Medications (units (unknown) date) unknown) (unknown) (no (unknown) (unknown) Hypochromasia 3+ (units (unknown) date) H unknown) (unknown) (no (unknown) (unknown) Hypochromasia (units ( unknown) date) unknown) (unknown) (no (unknown) (unknown) IMPRESSION: (units (un known) date) unknown) (unknown) (no (unknown) (unknown) IMPRESSION:? No (units (unknown) date) focal infiltrate, unknown) pleural effusion or pneumothorax. (unknown) (no (unknown) (unknown) INDICATIONS:? Flu (units (unknown) date) like symptoms unknown) (unknown) (no (unknown) (unknown) INDICATIONS:? abd (units (unknown) date) pain, gi bleed unknown) (unknown) (no (unknown) (unknown) INR (0.9-1.3) (units ( unknown) date) unknown) (unknown) (no (unknown) (unknown) INR 1.6 H (units (unkn own) date) (0.9-1.3) unknown) (unknown) (no (unknown) (unknown) Image quality:? (units (unknown) date) Excellent.? unknown) (unknown) (no (unknown) (unknown) Imaging Data (units (u nknown) date) unknown) (unknown) (no (unknown) (unknown) Impetigo (units (unkno wn) date) unknown) (unknown) (no (unknown) (unknown) Incontinence (units (u nknown) date) unknown) (unknown) (no (unknown) (unknown) Initial Vital (units ( unknown) date) Signs unknown) (unknown) (no (unknown) (unknown) Initial Vital (units ( unknown) date) Signs: unknown) (unknown) (no (unknown) (unknown) Interpretation: (units (unknown) date) unknown) (unknown) (no (unknown) (unknown) [facility] (units (unknown) date) [address] unknown) [place] [address] (unknown) (no (unknown) (unknown) [facility] (units (unknown) date) unknown) (unknown) (no (unknown) (unknown) Kidneys and (units (un known) date) Ureters:? No unknown) stones or hydronephrosis.? No hydroureter. (unknown) (no (unknown) (unknown) Lab Data (units (unkno wn) date) unknown) (unknown) (no (unknown) (unknown) Lab Results (units (un known) date) unknown) (unknown) (no (unknown) (unknown) Labs: (units (unkno wn) date) unknown) (unknown) (no (unknown) (unknown) Last Admin: (units (un known) date) 01/21/22 15:31 unknown) Dose: 4 mg (unknown) (no (unknown) (unknown) Last Admin: (units (un known) date) 01/21/22 15:33 unknown) Dose: 25 mcg (unknown) (no (unknown) (unknown) Last Admin: (units (un known) date) 01/21/22 15:33 unknown) Dose: 80 mg (unknown) (no (unknown) (unknown) Last Admin: (units (un known) date) 01/21/22 17:32 unknown) Dose: 40 mg (unknown) (no (unknown) (unknown) Launch?Image (units (u nknown) date) unknown) (unknown) (no (unknown) (unknown) Limitations: no (units (unknown) date) limitations unknown) (unknown) (no (unknown) (unknown) Augustus Aguirre (units (unkno wn) date) unknown) (unknown) (no (unknown) (unknown) Liver:? Liver is (units (unknown) date) normal in size.? unknown) Moderate hepatic steatosis is seen.? No (unknown) (no (unknown) (unknown) Loc: ED (units (unkno wn) date) unknown) (unknown) (no (unknown) (unknown) Lung bases:? (units (u nknown) date) Unremarkable. unknown) (unknown) (no (unknown) (unknown) Lungs and (units (unkn own) date) pleura:? Lungs are unknown) clear.? No pleural effusions or pneumothorax.? (unknown) (no (unknown) (unknown) Lymph # (Auto) (units (unknown) date) (3260-0521) /uL unknown) (unknown) (no (unknown) (unknown) Lymph # (Auto) (units (unknown) date) 1700 (4568-2103) unknown) /uL (unknown) (no (unknown) (unknown) Lymph % (Auto) (units (unknown) date) (25-40) % unknown) (unknown) (no (unknown) (unknown) Lymph % (Auto) (units (unknown) date) 14.7 L (25-40) % unknown) (unknown) (no (unknown) (unknown) MCH (26-34) PG (units (unknown) date) unknown) (unknown) (no (unknown) (unknown) MCH 23.0 L (units (unk nown) date) (26-34) PG unknown) (unknown) (no (unknown) (unknown) MCHC (30-36) % (units (unknown) date) unknown) (unknown) (no (unknown) (unknown) MCHC 30.3 (30-36) (units (unknown) date) % unknown) (unknown) (no (unknown) (unknown) MCV (80-100) fL (units (unknown) date) unknown) (unknown) (no (unknown) (unknown) MCV 75.9 L (units (unk nown) date) (80-100) fL unknown) (unknown) (no (unknown) (unknown) MDM - GI Bleed (units (unknown) date) unknown) (unknown) (no (unknown) (unknown) MDM Narrative (units ( unknown) date) unknown) (unknown) (no (unknown) (unknown) MR#: [id number] (units (unknown) date) unknown) (unknown) (no (unknown) (unknown) Mediastinum:? (units ( unknown) date) Mediastinal unknown) contours appear normal.? Heart size is enlarged.? (unknown) (no (unknown) (unknown) Medical History (units (unknown) date) (Reviewed 01/21/22 unknown) @ 15:14 by Lilian Armstrong DO) (unknown) (no (unknown) (unknown) Medical decision (units (unknown) date) making narrative: unknown) (unknown) (no (unknown) (unknown) Medication (units (unk nown) date) Instructions unknown) Recorded Confirmed (unknown) (no (unknown) (unknown) Medication (units (unk nown) date) Instructions unknown) Recorded (unknown) (no (unknown) (unknown) Miscellaneous: No (units (unknown) date) hernias are seen. unknown) ? ? (unknown) (no (unknown) (unknown) Moderate right (units (unknown) date) hip joint unknown) osteoarthritic changes are seen.? No evidence of (unknown) (no (unknown) (unknown) Lyon # (Auto) (units ( unknown) date) (0-900) /uL unknown) (unknown) (no (unknown) (unknown) Lyon # (Auto) (units ( unknown) date) 1100 H (0-900) /uL unknown) (unknown) (no (unknown) (unknown) Lyon % (Auto) (units ( unknown) date) (3-14) % unknown) (unknown) (no (unknown) (unknown) Lyon % (Auto) 9.7 (units (unknown) date) (3-14) % unknown) (unknown) (no (unknown) (unknown) Morbid obesity (units (unknown) date) due to excess unknown) calories (unknown) (no (unknown) (unknown) Mother (units (unknown) date) CVA (cerebral unknown) vascular accident) (unknown) (no (unknown) (unknown) NECK: Supple, (units ( unknown) date) full range of unknown) motion (unknown) (no (unknown) (unknown) NEUROLOGICAL: (units ( unknown) date) Cranial nerves II unknown) through XII grossly intact. Moving all (unknown) (no (unknown) (unknown) NT-Pro-B (units (unkno wn) date) Natriuret Pep unknown) (<125) pg/mL (unknown) (no (unknown) (unknown) NT-Pro-B (units (unkno wn) date) Natriuret Pep 637 unknown) H (<125) pg/mL (unknown) (no (unknown) (unknown) Narrative (units (unkn own) date) unknown) (unknown) (no (unknown) (unknown) Neut # (Auto) (units ( unknown) date) (8244-7325) /uL unknown) (unknown) (no (unknown) (unknown) Neut # (Auto) (units ( unknown) date) 8600 H (5444-8795) unknown) /uL (unknown) (no (unknown) (unknown) Neut % (Auto) (units ( unknown) date) (50-75) % unknown) (unknown) (no (unknown) (unknown) Neut % (Auto) (units ( unknown) date) 74.9 (50-75) % unknown) (unknown) (no (unknown) (unknown) Ondansetron HCl (units (unknown) date) (Ondansetron 4 unknown) Mg/2 Ml Inj) 4 mg IV NOW ONE (unknown) (no (unknown) (unknown) Ordered: (units (unkno wn) date) unknown) (unknown) (no (unknown) (unknown) Ordering (units (unkno wn) date) Provider: unknown) Lilian Armstrong D.O. (unknown) (no (unknown) (unknown) Orders (units (unkno wn) date) unknown) (unknown) (no (unknown) (unknown) Outside Echo (units (u nknown) date) unknown) (unknown) (no (unknown) (unknown) Oxygen Delivery (units (unknown) date) Method 01/21/22 unknown) 14:40 (unknown) (no (unknown) (unknown) Oxygen Delivery (units (unknown) date) Method Room Air unknown) Nasal Cannula (unknown) (no (unknown) (unknown) Oxygen Delivery (units (unknown) date) Method Room Air unknown) Room Air (unknown) (no (unknown) (unknown) Oxygen Delivery (units (unknown) date) Method Room Air unknown) (unknown) (no (unknown) (unknown) Oxygen Delivery (units (unknown) date) Method unknown) (unknown) (no (unknown) (unknown) Oxygen Flow Rate (units (unknown) date) 2.5 unknown) (unknown) (no (unknown) (unknown) Oxygen Flow Rate (units (unknown) date) unknown) (unknown) (no (unknown) (unknown) PELVIS: (units (unkno wn) date) unknown) (unknown) (no (unknown) (unknown) PRBC [Packed (units (u nknown) date) Cells] Stat unknown) (unknown) (no (unknown) (unknown) PROCEDURE:? CT (units (unknown) date) ABDOMEN PELVIS W unknown) CON (unknown) (no (unknown) (unknown) PROCEDURE:? XR (units (unknown) date) CHEST 1V unknown) (unknown) (no (unknown) (unknown) PT (10.1-12.7) (units (unknown) date) SECONDS unknown) (unknown) (no (unknown) (unknown) PT 18.6 H (units (unkn own) date) (10.1-12.7) unknown) SECONDS (unknown) (no (unknown) (unknown) Pancreas:? (units (unk nown) date) Unremarkable.? ? unknown) (unknown) (no (unknown) (unknown) Pantoprazole (units (u nknown) date) Sodium unknown) (Pantoprazole 40 Mg Vial) 80 mg IV NOW ONE (unknown) (no (unknown) (unknown) Partial (units (unkno wn) date) Thromboplastin unknown) Time Stat (unknown) (no (unknown) (unknown) Patient (units (unkno wn) date) Disposition: unknown) Admitted As Inpatient (unknown) (no (unknown) (unknown) Patient History (units (unknown) date) unknown) (unknown) (no (unknown) (unknown) Patient: (units (unkno wn) date) Rosalba Pabon MR#: unknown) M0000 (unknown) (no (unknown) (unknown) Patient: (units (unkno wn) date) Rosalba Pabon unknown) (unknown) (no (unknown) (unknown) Pelvic Nodes: No (units (unknown) date) enlarged lymph unknown) nodes.? (unknown) (no (unknown) (unknown) Pelvic Organs:? (units (unknown) date) Unremarkable.? ? unknown) (unknown) (no (unknown) (unknown) Peritoneum:? No (units (unknown) date) abnormal unknown) intraperitoneal fluid.? No free air.? (unknown) (no (unknown) (unknown) Plt Count (units (unkn own) date) (150-400) X103/uL unknown) (unknown) (no (unknown) (unknown) Plt Count 331 (units ( unknown) date) (150-400) X103/uL unknown) (unknown) (no (unknown) (unknown) Poikilocytosis 1+ (units (unknown) date) H unknown) (unknown) (no (unknown) (unknown) Poikilocytosis (units (unknown) date) unknown) (unknown) (no (unknown) (unknown) Polychromasia 1+ (units (unknown) date) H unknown) (unknown) (no (unknown) (unknown) Polychromasia (units ( unknown) date) unknown) (unknown) (no (unknown) (unknown) Potassium (units (unkn own) date) (3.4-5.1) mmol/L unknown) (unknown) (no (unknown) (unknown) Potassium 3.6 (units ( unknown) date) (3.4-5.1) mmol/L unknown) (unknown) (no (unknown) (unknown) Previous Rx's (units ( unknown) date) unknown) (unknown) (no (unknown) (unknown) Procedure: CT (units ( unknown) date) abdomen pelvis w unknown) con (unknown) (no (unknown) (unknown) Procedure: XR (units ( unknown) date) chest 1V unknown) (unknown) (no (unknown) (unknown) Prothrombin Time (units (unknown) date) INR Stat unknown) (unknown) (no (unknown) (unknown) Pulmonary (units (unkn own) date) hypertension unknown) (unknown) (no (unknown) (unknown) Pulse Oximetry (units (unknown) date) 100 unknown) (unknown) (no (unknown) (unknown) Pulse Oximetry 88 (units (unknown) date) L 93 unknown) (unknown) (no (unknown) (unknown) Pulse Oximetry 94 (units (unknown) date) unknown) (unknown) (no (unknown) (unknown) Pulse Oximetry 96 (units (unknown) date) 01/21/22 14:40 unknown) (unknown) (no (unknown) (unknown) Pulse Oximetry 96 (units (unknown) date) 99 94 unknown) (unknown) (no (unknown) (unknown) Pulse Oximetry (units (unknown) date) unknown) (unknown) (no (unknown) (unknown) Pulse Rate 105 H (units (unknown) date) 01/21/22 14:40 unknown) (unknown) (no (unknown) (unknown) Pulse Rate 105 H (units (unknown) date) 106 H 110 H unknown) (unknown) (no (unknown) (unknown) Pulse Rate 108 H (units (unknown) date) 108 H unknown) (unknown) (no (unknown) (unknown) Pulse Rate 109 H (units (unknown) date) 112 H unknown) (unknown) (no (unknown) (unknown) Pulse Rate 110 H (units (unknown) date) 114 H unknown) (unknown) (no (unknown) (unknown) Pulse Rate 111 H (units (unknown) date) 110 H unknown) (unknown) (no (unknown) (unknown) Pulse Rate 111 H (units (unknown) date) unknown) (unknown) (no (unknown) (unknown) RBC (4.0-5.2) (units ( unknown) date) X106/uL unknown) (unknown) (no (unknown) (unknown) RBC 1.68 L (units (unk nown) date) (4.0-5.2) X106/uL unknown) (unknown) (no (unknown) (unknown) RBC Morphology (units (unknown) date) Not Reportable unknown) (unknown) (no (unknown) (unknown) RBC Morphology (units (unknown) date) unknown) (unknown) (no (unknown) (unknown) RDW (11.6-14.8) % (units (unknown) date) unknown) (unknown) (no (unknown) (unknown) RDW 21.9 H (units (unk nown) date) (11.6-14.8) % unknown) (unknown) (no (unknown) (unknown) RESPIRATORY: (units (u nknown) date) Breath sounds unknown) equal bilaterally, no wheezes rales or rhonchi. (unknown) (no (unknown) (unknown) ROS Unobtainable: (units (unknown) date) All systems unknown) reviewed + are unremarkable except as noted in HPI (unknown) (no (unknown) (unknown) Radiologist's (units ( unknown) date) Impression: unknown) (unknown) (no (unknown) (unknown) Related Data (units (u nknown) date) unknown) (unknown) (no (unknown) (unknown) Respiratory Rate (units (unknown) date) 18 01/21/22 14:40 unknown) (unknown) (no (unknown) (unknown) Respiratory Rate (units (unknown) date) 18 25 H 27 H unknown) (unknown) (no (unknown) (unknown) Respiratory Rate (units (unknown) date) 22 26 H unknown) (unknown) (no (unknown) (unknown) Respiratory Rate (units (unknown) date) 23 26 H unknown) (unknown) (no (unknown) (unknown) Respiratory Rate (units (unknown) date) 25 H 28 H unknown) (unknown) (no (unknown) (unknown) Respiratory Rate (units (unknown) date) 28 H unknown) (unknown) (no (unknown) (unknown) Restless leg (units (u nknown) date) syndrome unknown) (unknown) (no (unknown) (unknown) Result diagrams: (units (unknown) date) unknown) (unknown) (no (unknown) (unknown) Review of Systems (units (unknown) date) unknown) (unknown) (no (unknown) (unknown) Right-sided low (units (unknown) date) back pain with unknown) sciatica (unknown) (no (unknown) (unknown) Jose G Nagel (units (unknown) date) unknown) (unknown) (no (unknown) (unknown) SARS-CoV-2 (PCR) (units (unknown) date) (Negative) unknown) (unknown) (no (unknown) (unknown) SARS-CoV-2 (PCR) (units (unknown) date) Negative unknown) (Negative) (unknown) (no (unknown) (unknown) SKIN: Warm, dry, (units (unknown) date) no petechiae, no unknown) rashes or lesions. (unknown) (no (unknown) (unknown) She does still (units (unknown) date) smoke, she drinks unknown) 2-3 white claws daily, no illicit. She is (unknown) (no (unknown) (unknown) Sigmoid (units (unkno wn) date) diverticulosis is unknown) seen without evidence of acute diverticulitis.? No (unknown) (no (unknown) (unknown) Signed By: (units (unk nown) date) unknown) (unknown) (no (unknown) (unknown) Signed (units (unkno wn) date) unknown) (unknown) (no (unknown) (unknown) Sinus tachycardia (units (unknown) date) rate of 110 VT 146 unknown) QRS 88 QTC 481. No acute ST elevation. (unknown) (no (unknown) (unknown) Smoking Status: (units (unknown) date) Current every day unknown) smoker (unknown) (no (unknown) (unknown) Social History (units (unknown) date) (Reviewed 01/21/22 unknown) @ 15:14 by Lilian Armstrong DO) (unknown) (no (unknown) (unknown) Sodium (137-145) (units (unknown) date) mmol/L unknown) (unknown) (no (unknown) (unknown) Sodium 135 L (units (u nknown) date) (137-145) mmol/L unknown) (unknown) (no (unknown) (unknown) Source: patient (units (unknown) date) unknown) (unknown) (no (unknown) (unknown) Spleen:? Spleen (units (unknown) date) is normal in unknown) size.? Focal calcification in anterior aspect of (unknown) (no (unknown) (unknown) Staph skin (units (unk nown) date) infection unknown) (unknown) (no (unknown) (unknown) Stated complaint: (units (unknown) date) Coffee ground unknown) emesis, CHF, +thinners (unknown) (no (unknown) (unknown) Stomach and (units (un known) date) Bowel:? There is a unknown) small hiatal hernia.? No bowel obstruction.? No (unknown) (no (unknown) (unknown) Stop: 01/21/22 (units (unknown) date) 14:56 unknown) (unknown) (no (unknown) (unknown) Stop: 01/21/22 (units (unknown) date) 15:06 unknown) (unknown) (no (unknown) (unknown) Stop: 01/21/22 (units (unknown) date) 17:21 unknown) (unknown) (no (unknown) (unknown) Substance Use (units ( unknown) date) Type: does not use unknown) (unknown) (no (unknown) (unknown) Surgical History (units (unknown) date) (Reviewed 01/21/22 unknown) @ 15:14 by Lilian Armstrong DO) (unknown) (no (unknown) (unknown) Surgical changes (units (unknown) date) and devices:? unknown) None.? (unknown) (no (unknown) (unknown) TECHNIQUE:? One (units (unknown) date) view of the chest unknown) was acquired.? (unknown) (no (unknown) (unknown) TECHNIQUE:? (units (un known) date) unknown) (unknown) (no (unknown) (unknown) Tachycardia (units (un known) date) unknown) (unknown) (no (unknown) (unknown) The high (units (unkno wn) date) probability of a unknown) clinically significant, sudden or life threatening (unknown) (no (unknown) (unknown) This is a (units (unkno wn) date) 56-year-old female unknown) who comes in with complaint of melanotic stools and (unknown) (no (unknown) (unknown) This is a (units (unkn own) date) 56-year-old female unknown) with history of pulmonary hypertension, COPD, CHF, (unknown) (no (unknown) (unknown) Time Seen by (units (u nknown) date) Provider: 01/21/22 unknown) 14:54 (unknown) (no (unknown) (unknown) Time: 16:08 (units (un known) date) unknown) (unknown) (no (unknown) (unknown) Total Bilirubin (units (unknown) date) (0.2-1.3) mg/dL unknown) (unknown) (no (unknown) (unknown) Total Bilirubin (units (unknown) date) 0.4 (0.2-1.3) unknown) mg/dL (unknown) (no (unknown) (unknown) Total Creatine (units (unknown) date) Kinase (30-135) unknown) U/L (unknown) (no (unknown) (unknown) Total Creatine (units (unknown) date) Kinase 41 (30-135) unknown) U/L (unknown) (no (unknown) (unknown) Total Critical (units (unknown) date) Care Time: 45 unknown) (unknown) (no (unknown) (unknown) Total Protein (units ( unknown) date) (6.3-8.2) g/dL unknown) (unknown) (no (unknown) (unknown) Total Protein 5.4 (units (unknown) date) L (6.3-8.2) g/dL unknown) (unknown) (no (unknown) (unknown) Troponin + CK (units ( unknown) date) Cardiac Panel Stat unknown) (unknown) (no (unknown) (unknown) Troponin I < (units (u nknown) date) 0.012 (0.01-0.034) unknown) ng/mL (unknown) (no (unknown) (unknown) Troponin I (units (unk nown) date) (0.01-0.034) ng/mL unknown) (unknown) (no (unknown) (unknown) Type and Screen (units (unknown) date) Stat unknown) (unknown) (no (unknown) (unknown) Ventral Wall: ? (units (unknown) date) Tiny umbilical unknown) hernia is seen containing fat only. (unknown) (no (unknown) (unknown) Vessels:? Aorta (units (unknown) date) and inferior vena unknown) cava are normal in size.? (unknown) (no (unknown) (unknown) Vital Signs - 8 (units (unknown) date) hr unknown) (unknown) (no (unknown) (unknown) Vital Signs (units (un known) date) unknown) (unknown) (no (unknown) (unknown) Vital signs: (units (u nknown) date) unknown) (unknown) (no (unknown) (unknown) WBC (4.5-11.0) (units (unknown) date) X103/uL unknown) (unknown) (no (unknown) (unknown) WBC 11.5 H (units (unk nown) date) (4.5-11.0) X103/uL unknown) (unknown) (no (unknown) (unknown) Fleming,Mg (units (u nknown) date) unknown) (unknown) (no (unknown) (unknown) XR chest 1V Stat (units (unknown) date) unknown) (unknown) (no (unknown) (unknown) XRay Report (units (un known) date) unknown) (unknown) (no (unknown) (unknown) Xarelto. (units (unkno wn) date) unknown) (unknown) (no (unknown) (unknown) Chandana Grimm (units (unkn own) date) unknown) (unknown) (no (unknown) (unknown) Sebastian Carrera (units (unkno wn) date) unknown) (unknown) (no (unknown) (unknown) [Embedded Image (units (unknown) date) Not Available] unknown) (unknown) (no (unknown) (unknown) [From [facility]] (units (unknown) date) unknown) (unknown) (no (unknown) (unknown) [x] Data Review (units (unknown) date) and interpretation unknown) (unknown) (no (unknown) (unknown) [x] Documentation (units (unknown) date) unknown) (unknown) (no (unknown) (unknown) [x] Medication (units (unknown) date) orders and unknown) management (unknown) (no (unknown) (unknown) [x] Patient (units (un known) date) assessment and unknown) monitoring of vital signs (unknown) (no (unknown) (unknown) abscess (units (unkno wn) date) unknown) (unknown) (no (unknown) (unknown) acute (units (unkno wn) date) unknown) (unknown) (no (unknown) (unknown) adjustment (units (unk nown) date) unknown) (unknown) (no (unknown) (unknown) aerosol inhaler (units (unknown) date) (Ventolin HFA) unknown) shortness of breath or wheezing (unknown) (no (unknown) (unknown) albuterol sulfate (units (unknown) date) 90 mcg/actuation 1 unknown) puff inhalation Q6H PRN 11/14/21 (unknown) (no (unknown) (unknown) alcohol intake (units (unknown) date) frequency: 3 or unknown) more drinks per day (unknown) (no (unknown) (unknown) alcohol intake: (units (unknown) date) current unknown) (unknown) (no (unknown) (unknown) amlodipine 5 mg (units (unknown) date) tablet 5 mg PO BID unknown) 01/02/22 01/02/22 (unknown) (no (unknown) (unknown) amoxicillin 875 (units (unknown) date) mg-potassium 1 tab unknown) PO Q12H #20 tabs 05/25/21 (unknown) (no (unknown) (unknown) and below (units (unkn own) date) unknown) (unknown) (no (unknown) (unknown) and lumbar (units (unk nown) date) unknown) (unknown) (no (unknown) (unknown) angustifolia) (units ( unknown) date) sinus unknown) (unknown) (no (unknown) (unknown) appear (units (unkno wn) date) unknown) (unknown) (no (unknown) (unknown) atrial (units (unkno wn) date) fibrillation on unknown) Jessica with complaint of coffee-ground emesis and (unknown) (no (unknown) (unknown) avascular (units (unkn own) date) unknown) (unknown) (no (unknown) (unknown) bases to the (units (u nknown) date) pubic symphysis.? unknown) Coronal and sagittal reformats were performed.? (unknown) (no (unknown) (unknown) been taking (units (un known) date) ibuprofen 8 unknown) tablets of 200 mg ibuprofen. (unknown) (no (unknown) (unknown) breath. She is (units (unknown) date) had nausea and unknown) vomiting she states she is thrown up 5 times (unknown) (no (unknown) (unknown) breathe (units (unkno wn) date) unknown) (unknown) (no (unknown) (unknown) breathing (units (unkn own) date) unknown) (unknown) (no (unknown) (unknown) but includes the (units (unknown) date) following: unknown) (unknown) (no (unknown) (unknown) cannot (units (unkno wn) date) unknown) (unknown) (no (unknown) (unknown) clavulanate 125 (units (unknown) date) mg tablet unknown) (unknown) (no (unknown) (unknown) clobetasol 0.05 % (units (unknown) date) scalp solution 1 unknown) applic topical BEDTIME #25 mL 03/03/21 (unknown) (no (unknown) (unknown) closes, (units (unkno wn) date) unknown) (unknown) (no (unknown) (unknown) coffee-ground (units ( unknown) date) emesis that has unknown) been intermittent over time. Patient is (unknown) (no (unknown) (unknown) collection. (units (un known) date) unknown) (unknown) (no (unknown) (unknown) compression (units (un known) date) fracture.? Right unknown) worse than left bilateral hip joint (unknown) (no (unknown) (unknown) congestion (units (unk nown) date) unknown) (unknown) (no (unknown) (unknown) conjunctival (units (u nknown) date) pallor face unknown) symmetric, moist mucous membranes (unknown) (no (unknown) (unknown) current plan. (units ( unknown) date) Asks for formal unknown) consult to be placed. (unknown) (no (unknown) (unknown) deterioration of (units (unknown) date) the [gi, heme] unknown) system(s) required my full and direct attention, (unknown) (no (unknown) (unknown) discrete (units (unkno wn) date) unknown) (unknown) (no (unknown) (unknown) extremities (units (un known) date) unknown) (unknown) (no (unknown) (unknown) fracture.? (units (unk nown) date) unknown) (unknown) (no (unknown) (unknown) gastric or (units (unk nown) date) unknown) (unknown) (no (unknown) (unknown) grass pollen (units (u nknown) date) Allergy sinus unknown) Verified 01/02/22 13:27 (unknown) (no (unknown) (unknown) guarding or (units (un known) date) rebound, rigidity, unknown) no mass, positive stool occult with black stool. (unknown) (no (unknown) (unknown) has resolved when (units (unknown) date) she is not unknown) exerting herself as well as feels actively short of (unknown) (no (unknown) (unknown) hepatic lesion. (units (unknown) date) unknown) (unknown) (no (unknown) (unknown) intact (units (unkno wn) date) unknown) (unknown) (no (unknown) (unknown) intervention and (units (unknown) date) personal unknown) management. The aggregate critical care time was [45] (unknown) (no (unknown) (unknown) lavender (units (unkno wn) date) (Lavandula Allergy unknown) severe Verified 01/02/22 13:27 (unknown) (no (unknown) (unknown) like since (units (unk nown) date) Wednesday. Patient unknown) denies any swelling of extremities. She is had a (unknown) (no (unknown) (unknown) melanotic stools (units (unknown) date) since Wednesday or unknown) Wednesday the 18 of January. Patient also notes (unknown) (no (unknown) (unknown) metoprolol (units (unk nown) date) succinate 50 mg 50 unknown) mg PO BID #180 tabs 01/02/22 (unknown) (no (unknown) (unknown) mild leukocytosis (units (unknown) date) and appropriate unknown) platelets. Patient is anticoagulated on (unknown) (no (unknown) (unknown) minutes. 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 unknown) Degenerative disc disease throughout lower thoracic (unknown) (no (unknown) (unknown) not felt well she (units (unknown) date) is felt unknown) increasingly fatigued lightheaded like she is going to (unknown) (no (unknown) (unknown) obstruction (units (un known) date) unknown) (unknown) (no (unknown) (unknown) of mA and/or kV (units (unknown) date) according to unknown) patient size.? (unknown) (no (unknown) (unknown) or abnormal bowel (units (unknown) date) wall thickening.? unknown) No free fluid or free air. (unknown) (no (unknown) (unknown) osteoarthritis.? (units (unknown) date) unknown) (unknown) (no (unknown) (unknown) pass out she has (units (unknown) date) not had actual unknown) syncope, she has had some chest pressure which (unknown) (no (unknown) (unknown) pine tanya Allergy (units (unknown) date) Severe throat unknown) Uncoded 01/02/22 13:27 (unknown) (no (unknown) (unknown) pramipexole 0.25 (units (unknown) date) mg tablet 0.25 mg unknown) PO BEDTIME #90 tabs 01/02/22 (unknown) (no (unknown) (unknown) prior complete (units ( unknown) date) hysterectomy, she unknown) is supposed to be seen for EGD and colonoscopy. (unknown) (no (unknown) (unknown) quit status: has (units (unknown) date) quit before unknown) (unknown) (no (unknown) (unknown) radiation dose (units (unknown) date) reduction, the unknown) following was used:? automated exposure control, (unknown) (no (unknown) (unknown) release 24 hr (units ( unknown) date) (Detrol LA) unknown) (unknown) (no (unknown) (unknown) seen. (units (unkno wn) date) unknown) (unknown) (no (unknown) (unknown) she was having (units (unknown) date) episodes at least unknown) a couple weeks ago. Patient has noted she has (unknown) (no (unknown) (unknown) since Wednesday. She (units (unknown) date) has had multiple unknown) lack stools that she describes as diarrhea (unknown) (no (unknown) (unknown) small bowel wall (units (unknown) date) thickening.? No unknown) colonic wall thickening.? No mesenteric fat (unknown) (no (unknown) (unknown) spine is seen. (units (unknown) date) unknown) (unknown) (no (unknown) (unknown) spironolactone 25 (units (unknown) date) mg tablet 25 mg PO unknown) DAILY 03/03/21 01/02/22 (unknown) (no (unknown) (unknown) spleen is (units (unkn own) date) unknown) (unknown) (no (unknown) (unknown) stranding.? (units (un known) date) unknown) (unknown) (no (unknown) (unknown) swelling (units (unkno wn) date) bilateral lower unknown) extremities. (unknown) (no (unknown) (unknown) swelling, (units (unkn own) date) unknown) (unknown) (no (unknown) (unknown) tablet,extended (units (unknown) date) release 24 hr unknown) (unknown) (no (unknown) (unknown) tachycardic (units (un known) date) hypotensive quite unknown) pale. Initial labs show a hemoglobin of 3.9, with (unknown) (no (unknown) (unknown) the lung (units (unkno wn) date) unknown) (unknown) (no (unknown) (unknown) tiotropium (units (unk nown) date) bromide 18 mcg unknown) capsule 1 cap inhalation DAILY #90 10/28/20 (unknown) (no (unknown) (unknown) tobacco type: (units ( unknown) date) cigarettes unknown) (unknown) (no (unknown) (unknown) tolterodine 2 mg (units (unknown) date) capsule,extended 2 unknown) mg PO BEDTIME #90 caps 01/02/22 (unknown) (no (unknown) (unknown) trouble (units (unkno wn) date) unknown) (unknown) (no (unknown) (unknown) unremarkable.? (units (unknown) date) unknown) (unknown) (no (unknown) (unknown) with HandiHaler) (units (unknown) date) unknown) (unknown) (no (unknown) (unknown) with inhalation (units (unknown) date) device (Spiriva unknown) inhalations Result panel 26 (unknown) (no date) (unknown) (unknown) TRANSFUSED (units (un known) PRODUCT: Packed unknown) Cells COUNT: 2 Result panel 27 (unknown) (no (unknown) (unknown) (no value) (units (unk nown) date) unknown) (unknown) (no (unknown) (unknown) #18 grams (units (unkn own) date) unknown) (unknown) (no (unknown) (unknown) (Mirapex) (units (unkn own) date) unknown) (unknown) (no (unknown) (unknown) (past 8 hours): (units (unknown) date) unknown) (unknown) (no (unknown) (unknown) 01/21/22 (units (unkno wn) date) 01/21/22 01/21/22 unknown) (unknown) (no (unknown) (unknown) 01/21/22 14:50 (units (unknown) date) unknown) (unknown) (no (unknown) (unknown) 01/21/22 Rx (units (un known) date) unknown) (unknown) (no (unknown) (unknown) 01/21/22 (units (unkno wn) date) unknown) (unknown) (no (unknown) (unknown) 14:40 01/21/22 (units (unknown) date) unknown) (unknown) (no (unknown) (unknown) 14:50 14:50 (units (un known) date) 14:50 unknown) (unknown) (no (unknown) (unknown) 14:50 (units (unkno wn) date) unknown) (unknown) (no (unknown) (unknown) 14:55 01/21/22 (units (unknown) date) unknown) (unknown) (no (unknown) (unknown) 15:00 (units (unkno wn) date) unknown) (unknown) (no (unknown) (unknown) 15:23 01/21/22 (units (unknown) date) unknown) (unknown) (no (unknown) (unknown) 15:24 01/21/22 (units (unknown) date) unknown) (unknown) (no (unknown) (unknown) 15:24 (units (unkno wn) date) unknown) (unknown) (no (unknown) (unknown) 15:30 01/21/22 (units (unknown) date) unknown) (unknown) (no (unknown) (unknown) 15:38 01/21/22 (units (unknown) date) unknown) (unknown) (no (unknown) (unknown) 15:38 (units (unkno wn) date) unknown) (unknown) (no (unknown) (unknown) 15:45 (units (unkno wn) date) unknown) (unknown) (no (unknown) (unknown) 16:00 01/21/22 (units (unknown) date) unknown) (unknown) (no (unknown) (unknown) 16:02 01/21/22 (units (unknown) date) unknown) (unknown) (no (unknown) (unknown) 16:02 (units (unkno wn) date) unknown) (unknown) (no (unknown) (unknown) 16:10 01/21/22 (units (unknown) date) unknown) (unknown) (no (unknown) (unknown) 16:10 (units (unkno wn) date) unknown) (unknown) (no (unknown) (unknown) 16:15 01/21/22 (units (unknown) date) unknown) (unknown) (no (unknown) (unknown) 16:30 01/21/22 (units (unknown) date) unknown) (unknown) (no (unknown) (unknown) 16:30 (units (unkno wn) date) unknown) (unknown) (no (unknown) (unknown) 16:31 01/21/22 (units (unknown) date) unknown) (unknown) (no (unknown) (unknown) 16:45 01/21/22 (units (unknown) date) unknown) (unknown) (no (unknown) (unknown) 16:55 (units (unkno wn) date) unknown) (unknown) (no (unknown) (unknown) 17:29 01/21/22 (units (unknown) date) unknown) (unknown) (no (unknown) (unknown) 17:53 01/21/22 (units (unknown) date) unknown) (unknown) (no (unknown) (unknown) 18:20 01/21/22 (units (unknown) date) unknown) (unknown) (no (unknown) (unknown) 18:25 (units (unkno wn) date) unknown) (unknown) (no (unknown) (unknown) 18:46 01/21/22 (units (unknown) date) unknown) (unknown) (no (unknown) (unknown) 18:48 (units (unkno wn) date) unknown) (unknown) (no (unknown) (unknown) [id number] (units (unkno wn) date) unknown) (unknown) (no (unknown) (unknown) ALT 14 (units (unkno wn) date) unknown) (unknown) (no (unknown) (unknown) ALT (units (unkno wn) date) unknown) (unknown) (no (unknown) (unknown) APTT 25 L (units (unkn own) date) unknown) (unknown) (no (unknown) (unknown) APTT (units (unkno wn) date) unknown) (unknown) (no (unknown) (unknown) AST 45 H (units (unkno wn) date) unknown) (unknown) (no (unknown) (unknown) AST (units (unkno wn) date) unknown) (unknown) (no (unknown) (unknown) Abdominal pain (units (unknown) date) unknown) (unknown) (no (unknown) (unknown) Age/Sex: 56 / F (units (unknown) date) unknown) (unknown) (no (unknown) (unknown) Albumin 2.9 L (units ( unknown) date) unknown) (unknown) (no (unknown) (unknown) Albumin (units (unkno wn) date) unknown) (unknown) (no (unknown) (unknown) Albumin/Globulin (units (unknown) date) Ratio 1.2 unknown) (unknown) (no (unknown) (unknown) Albumin/Globulin (units (unknown) date) Ratio unknown) (unknown) (no (unknown) (unknown) Alkaline (units (unkno wn) date) Phosphatase 39 unknown) (unknown) (no (unknown) (unknown) Alkaline (units (unkno wn) date) Phosphatase unknown) (unknown) (no (unknown) (unknown) Allergic (units (unkno wn) date) dermatitis of unknown) eyelids of both eyes (unknown) (no (unknown) (unknown) Allergies (units (unkn own) date) unknown) (unknown) (no (unknown) (unknown) Allergy/AdvReac (units (unknown) date) Type Severity unknown) Reaction Status Date / Time (unknown) (no (unknown) (unknown) Anemia (units (unkno wn) date) unknown) (unknown) (no (unknown) (unknown) Anisocytosis 2+ (units (unknown) date) H unknown) (unknown) (no (unknown) (unknown) Anisocytosis (units (u nknown) date) unknown) (unknown) (no (unknown) (unknown) Antibody Screen (units (unknown) date) Negative unknown) (unknown) (no (unknown) (unknown) Antibody Screen (units (unknown) date) unknown) (unknown) (no (unknown) (unknown) Arthritis (units (unkn own) date) (Unknown) unknown) (unknown) (no (unknown) (unknown) Assessment + (units (u nknown) date) Plan unknown) (unknown) (no (unknown) (unknown) Asthma (Unknown) (units (unknown) date) unknown) (unknown) (no (unknown) (unknown) Asthma (units (unkno wn) date) unknown) (unknown) (no (unknown) (unknown) BUN 37 H (units (unkno wn) date) unknown) (unknown) (no (unknown) (unknown) BUN (units (unkno wn) date) unknown) (unknown) (no (unknown) (unknown) BUN/Creatinine (units (unknown) date) Ratio 47.4 H unknown) (unknown) (no (unknown) (unknown) BUN/Creatinine (units (unknown) date) Ratio unknown) (unknown) (no (unknown) (unknown) Baso # (Auto) (units ( unknown) date) 100 unknown) (unknown) (no (unknown) (unknown) Baso # (Auto) (units ( unknown) date) unknown) (unknown) (no (unknown) (unknown) Baso % (Auto) (units ( unknown) date) 0.6 unknown) (unknown) (no (unknown) (unknown) Baso % (Auto) (units ( unknown) date) unknown) (unknown) (no (unknown) (unknown) Blood Pressure (units (unknown) date) 100/52 L 112/57 L unknown) (unknown) (no (unknown) (unknown) Blood Pressure (units (unknown) date) 102/53 L unknown) (unknown) (no (unknown) (unknown) Blood Pressure (units (unknown) date) 104/51 L unknown) (unknown) (no (unknown) (unknown) Blood Pressure (units (unknown) date) 105/51 L unknown) (unknown) (no (unknown) (unknown) Blood Pressure (units (unknown) date) 105/61 105/61 unknown) (unknown) (no (unknown) (unknown) Blood Pressure (units (unknown) date) 113/51 L 95/54 L unknown) 101/57 L (unknown) (no (unknown) (unknown) Blood Pressure (units (unknown) date) 88/48 L 90/49 L unknown) (unknown) (no (unknown) (unknown) Blood Pressure (units (unknown) date) 91/44 L unknown) (unknown) (no (unknown) (unknown) Blood Pressure (units (unknown) date) 95/54 L unknown) (unknown) (no (unknown) (unknown) Blood Pressure (units (unknown) date) unknown) (unknown) (no (unknown) (unknown) Blood Type O (units (u nknown) date) Negative unknown) (unknown) (no (unknown) (unknown) Blood Type (units (unk nown) date) unknown) (unknown) (no (unknown) (unknown) CK-MB (CK-2) Rel (units (unknown) date) Index TNP unknown) (unknown) (no (unknown) (unknown) CK-MB (CK-2) Rel (units (unknown) date) Index unknown) (unknown) (no (unknown) (unknown) CK-MB (CK-2) TNP (units (unknown) date) unknown) (unknown) (no (unknown) (unknown) CK-MB (CK-2) (units (u nknown) date) unknown) (unknown) (no (unknown) (unknown) COPD (chronic (units ( unknown) date) obstructive unknown) pulmonary disease) (unknown) (no (unknown) (unknown) Calcium 7.9 L (units ( unknown) date) unknown) (unknown) (no (unknown) (unknown) Calcium (units (unkno wn) date) unknown) (unknown) (no (unknown) (unknown) Carbon Dioxide (units (unknown) date) 28 unknown) (unknown) (no (unknown) (unknown) Carbon Dioxide (units (unknown) date) unknown) (unknown) (no (unknown) (unknown) Carpal tunnel (units ( unknown) date) syndrome (-2017) unknown) (unknown) (no (unknown) (unknown) Chief complaint: (units (unknown) date) Coffee ground unknown) emesis, CHF, +thinners (unknown) (no (unknown) (unknown) Chloride 100 (units (u nknown) date) unknown) (unknown) (no (unknown) (unknown) Chloride (units (unkno wn) date) unknown) (unknown) (no (unknown) (unknown) Chronic atrial (units (unknown) date) fibrillation unknown) (unknown) (no (unknown) (unknown) Cor pulmonale (units ( unknown) date) (chronic) unknown) (unknown) (no (unknown) (unknown) Creatinine 0.78 (units (unknown) date) unknown) (unknown) (no (unknown) (unknown) Creatinine (units (unk nown) date) unknown) (unknown) (no (unknown) (unknown) Critical Care (units ( unknown) date) time: unknown) (unknown) (no (unknown) (unknown) Crossmatch See (units (unknown) date) Detail unknown) (unknown) (no (unknown) (unknown) Crossmatch (units (unk nown) date) unknown) (unknown) (no (unknown) (unknown) : 1965 (units (unknown) date) Acct:[id number] unknown) (unknown) (no (unknown) (unknown) Date of Service: (units (unknown) date) 01/21/22 unknown) (unknown) (no (unknown) (unknown) Eczema (units (unkno wn) date) unknown) (unknown) (no (unknown) (unknown) Environment (units (un known) date) unknown) (unknown) (no (unknown) (unknown) Eos # (Auto) 0 (units (unknown) date) unknown) (unknown) (no (unknown) (unknown) Eos # (Auto) (units (u nknown) date) unknown) (unknown) (no (unknown) (unknown) Eos % (Auto) 0.1 (units (unknown) date) L unknown) (unknown) (no (unknown) (unknown) Eos % (Auto) (units (u nknown) date) unknown) (unknown) (no (unknown) (unknown) Estimated GFR > (units (unknown) date) 60 unknown) (unknown) (no (unknown) (unknown) Estimated GFR (units ( unknown) date) unknown) (unknown) (no (unknown) (unknown) Ethyl Alcohol < (units (unknown) date) 10 unknown) (unknown) (no (unknown) (unknown) Ethyl Alcohol (units ( unknown) date) unknown) (unknown) (no (unknown) (unknown) Exam (units (unkno wn) date) unknown) (unknown) (no (unknown) (unknown) Family + Social (units (unknown) date) History unknown) (unknown) (no (unknown) (unknown) Family History (units (unknown) date) (Reviewed unknown) 01/21/22 @ 15:14 by Lilian Armstrong DO) (unknown) (no (unknown) (unknown) Feels Safe in (units ( unknown) date) Current Yes unknown) (unknown) (no (unknown) (unknown) Globulin 2.5 (units (u nknown) date) unknown) (unknown) (no (unknown) (unknown) Globulin (units (unkno wn) date) unknown) (unknown) (no (unknown) (unknown) Glucose 113 H (units ( unknown) date) unknown) (unknown) (no (unknown) (unknown) Glucose (units (unkno wn) date) unknown) (unknown) (no (unknown) (unknown) Hct 12.8 L* (units (un known) date) unknown) (unknown) (no (unknown) (unknown) Hct (units (unkno wn) date) unknown) (unknown) (no (unknown) (unknown) Hgb 3.9 L* (units (unk nown) date) unknown) (unknown) (no (unknown) (unknown) Hgb (units (unkno wn) date) unknown) (unknown) (no (unknown) (unknown) History + (units (unkn own) date) Physical Report unknown) (unknown) (no (unknown) (unknown) History of (units (unk nown) date) Present Illness unknown) (unknown) (no (unknown) (unknown) History of (units (unk nown) date) hysterectomy for unknown) cancer (unknown) (no (unknown) (unknown) Home Medications (units (unknown) date) and Allergies unknown) (unknown) (no (unknown) (unknown) Home Medications (units (unknown) date) unknown) (unknown) (no (unknown) (unknown) Hypochromasia 3+ (units (unknown) date) H unknown) (unknown) (no (unknown) (unknown) Hypochromasia (units ( unknown) date) unknown) (unknown) (no (unknown) (unknown) I spent a total (units (unknown) date) of [] minutes of unknown) critical care time on this patient's care (unknown) (no (unknown) (unknown) INR 1.6 H (units (unkn own) date) unknown) (unknown) (no (unknown) (unknown) INR (units (unkno wn) date) unknown) (unknown) (no (unknown) (unknown) Impetigo (units (unkno wn) date) unknown) (unknown) (no (unknown) (unknown) Incontinence (units (u nknown) date) unknown) (unknown) (no (unknown) (unknown) [facility] (units (unknown) date) [address] unknown) [place] [address] (unknown) (no (unknown) (unknown) Laboratory (units (unk nown) date) Results - last 24 unknown) hr (unknown) (no (unknown) (unknown) Labs (units (unkno wn) date) unknown) (unknown) (no (unknown) (unknown) Labs: (units (unkno wn) date) unknown) (unknown) (no (unknown) (unknown) Lymph # (Auto) (units (unknown) date) 1700 unknown) (unknown) (no (unknown) (unknown) Lymph # (Auto) (units (unknown) date) unknown) (unknown) (no (unknown) (unknown) Lymph % (Auto) (units (unknown) date) 14.7 L unknown) (unknown) (no (unknown) (unknown) Lymph % (Auto) (units (unknown) date) unknown) (unknown) (no (unknown) (unknown) MCH 23.0 L (units (unk nown) date) unknown) (unknown) (no (unknown) (unknown) MCH (units (unkno wn) date) unknown) (unknown) (no (unknown) (unknown) MCHC 30.3 (units (unkn own) date) unknown) (unknown) (no (unknown) (unknown) MCHC (units (unkno wn) date) unknown) (unknown) (no (unknown) (unknown) MCV 75.9 L (units (unk nown) date) unknown) (unknown) (no (unknown) (unknown) MCV (units (unkno wn) date) unknown) (unknown) (no (unknown) (unknown) Medical History (units (unknown) date) (Reviewed unknown) 01/21/22 @ 15:14 by Lilian Armstrong DO) (unknown) (no (unknown) (unknown) Medication (units (unk nown) date) Instructions unknown) Recorded Confirmed Type (unknown) (no (unknown) (unknown) Meds (units (unkno wn) date) unknown) (unknown) (no (unknown) (unknown) Lyon # (Auto) (units ( unknown) date) 1100 H unknown) (unknown) (no (unknown) (unknown) Lyon # (Auto) (units ( unknown) date) unknown) (unknown) (no (unknown) (unknown) Lyon % (Auto) (units ( unknown) date) 9.7 unknown) (unknown) (no (unknown) (unknown) Lyon % (Auto) (units ( unknown) date) unknown) (unknown) (no (unknown) (unknown) Morbid obesity (units (unknown) date) due to excess unknown) calories (unknown) (no (unknown) (unknown) Mother (units (unknown) date) CVA (cerebral unknown) vascular accident) (unknown) (no (unknown) (unknown) NT-Pro-B (units (unkno wn) date) Natriuret Pep 637 unknown) H (unknown) (no (unknown) (unknown) NT-Pro-B (units (unkno wn) date) Natriuret Pep unknown) (unknown) (no (unknown) (unknown) Neut # (Auto) (units ( unknown) date) 8600 H unknown) (unknown) (no (unknown) (unknown) Neut # (Auto) (units ( unknown) date) unknown) (unknown) (no (unknown) (unknown) Neut % (Auto) (units ( unknown) date) 74.9 unknown) (unknown) (no (unknown) (unknown) Neut % (Auto) (units ( unknown) date) unknown) (unknown) (no (unknown) (unknown) Objective (units (unkn own) date) unknown) (unknown) (no (unknown) (unknown) Oxygen Delivery (units (unknown) date) Method Nasal unknown) Cannula (unknown) (no (unknown) (unknown) Oxygen Delivery (units (unknown) date) Method Room Air unknown) Nasal Cannula Nasal Cannula (unknown) (no (unknown) (unknown) Oxygen Delivery (units (unknown) date) Method Room Air unknown) Nasal Cannula (unknown) (no (unknown) (unknown) Oxygen Delivery (units (unknown) date) Method Room Air unknown) Room Air (unknown) (no (unknown) (unknown) Oxygen Delivery (units (unknown) date) Method Room Air unknown) (unknown) (no (unknown) (unknown) Oxygen Delivery (units (unknown) date) Method unknown) (unknown) (no (unknown) (unknown) Oxygen Flow Rate (units (unknown) date) 2.5 unknown) (unknown) (no (unknown) (unknown) Oxygen Flow Rate (units (unknown) date) 4 unknown) (unknown) (no (unknown) (unknown) Oxygen Flow Rate (units (unknown) date) unknown) (unknown) (no (unknown) (unknown) PT 18.6 H (units (unkn own) date) unknown) (unknown) (no (unknown) (unknown) PT (units (unkno wn) date) unknown) (unknown) (no (unknown) (unknown) Patient History (units (unknown) date) unknown) (unknown) (no (unknown) (unknown) Patient: (units (unkno wn) date) Rosalba Pabon M unknown) MR#: [id number] (unknown) (no (unknown) (unknown) Plt Count 331 (units ( unknown) date) unknown) (unknown) (no (unknown) (unknown) Plt Count (units (unkn own) date) unknown) (unknown) (no (unknown) (unknown) Poikilocytosis (units (unknown) date) 1+ H unknown) (unknown) (no (unknown) (unknown) Poikilocytosis (units (unknown) date) unknown) (unknown) (no (unknown) (unknown) Polychromasia 1+ (units (unknown) date) H unknown) (unknown) (no (unknown) (unknown) Polychromasia (units ( unknown) date) unknown) (unknown) (no (unknown) (unknown) Potassium 3.6 (units ( unknown) date) unknown) (unknown) (no (unknown) (unknown) Potassium (units (unkn own) date) unknown) (unknown) (no (unknown) (unknown) Provider: (units (unkn own) date) Rajiv Simon unknown) juliet STEVENSON (unknown) (no (unknown) (unknown) Pulmonary (units (unkn own) date) hypertension unknown) (unknown) (no (unknown) (unknown) Pulse Oximetry (units (unknown) date) 100 99 unknown) (unknown) (no (unknown) (unknown) Pulse Oximetry (units (unknown) date) 88 L 93 unknown) (unknown) (no (unknown) (unknown) Pulse Oximetry (units (unknown) date) 93 94 unknown) (unknown) (no (unknown) (unknown) Pulse Oximetry (units (unknown) date) 94 unknown) (unknown) (no (unknown) (unknown) Pulse Oximetry (units (unknown) date) 96 99 94 unknown) (unknown) (no (unknown) (unknown) Pulse Oximetry (units (unknown) date) 98 92 unknown) (unknown) (no (unknown) (unknown) Pulse Oximetry (units (unknown) date) unknown) (unknown) (no (unknown) (unknown) Pulse Rate 105 H (units (unknown) date) 106 H 110 H unknown) (unknown) (no (unknown) (unknown) Pulse Rate 108 H (units (unknown) date) 119 H unknown) (unknown) (no (unknown) (unknown) Pulse Rate 108 H (units (unknown) date) unknown) (unknown) (no (unknown) (unknown) Pulse Rate 109 H (units (unknown) date) 112 H 111 H unknown) (unknown) (no (unknown) (unknown) Pulse Rate 109 H (units (unknown) date) 112 H unknown) (unknown) (no (unknown) (unknown) Pulse Rate 110 H (units (unknown) date) 114 H unknown) (unknown) (no (unknown) (unknown) Pulse Rate 111 H (units (unknown) date) 110 H unknown) (unknown) (no (unknown) (unknown) Pulse Rate 115 H (units (unknown) date) 83 84 unknown) (unknown) (no (unknown) (unknown) Pulse Rate 118 H (units (unknown) date) 107 H unknown) (unknown) (no (unknown) (unknown) Pulse Rate (units (unk nown) date) unknown) (unknown) (no (unknown) (unknown) RBC 1.68 L (units (unk nown) date) unknown) (unknown) (no (unknown) (unknown) RBC Morphology (units (unknown) date) Not Reportable unknown) (unknown) (no (unknown) (unknown) RBC Morphology (units (unknown) date) unknown) (unknown) (no (unknown) (unknown) RBC (units (unkno wn) date) unknown) (unknown) (no (unknown) (unknown) RDW 21.9 H (units (unk nown) date) unknown) (unknown) (no (unknown) (unknown) RDW (units (unkno wn) date) unknown) (unknown) (no (unknown) (unknown) Respiratory Rate (units (unknown) date) 18 18 28 H unknown) (unknown) (no (unknown) (unknown) Respiratory Rate (units (unknown) date) 18 18 unknown) (unknown) (no (unknown) (unknown) Respiratory Rate (units (unknown) date) 18 25 H 27 H unknown) (unknown) (no (unknown) (unknown) Respiratory Rate (units (unknown) date) 22 unknown) (unknown) (no (unknown) (unknown) Respiratory Rate (units (unknown) date) 23 26 H unknown) (unknown) (no (unknown) (unknown) Respiratory Rate (units (unknown) date) 25 H 28 H unknown) (unknown) (no (unknown) (unknown) Respiratory Rate (units (unknown) date) 26 H 30 H unknown) (unknown) (no (unknown) (unknown) Respiratory Rate (units (unknown) date) 28 H unknown) (unknown) (no (unknown) (unknown) Respiratory Rate (units (unknown) date) 34 H 22 22 unknown) (unknown) (no (unknown) (unknown) Respiratory Rate (units (unknown) date) unknown) (unknown) (no (unknown) (unknown) Restless leg (units (u nknown) date) syndrome unknown) (unknown) (no (unknown) (unknown) Result Diagrams: (units (unknown) date) unknown) (unknown) (no (unknown) (unknown) Right-sided low (units (unknown) date) back pain with unknown) sciatica (unknown) (no (unknown) (unknown) Rx (units (unkno wn) date) unknown) (unknown) (no (unknown) (unknown) SARS-CoV-2 (PCR) (units (unknown) date) Negative unknown) (unknown) (no (unknown) (unknown) SARS-CoV-2 (PCR) (units (unknown) date) unknown) (unknown) (no (unknown) (unknown) Safety + (units (unkno wn) date) Behavioral: unknown) (unknown) (no (unknown) (unknown) Signed By: (units (unk nown) date) unknown) (unknown) (no (unknown) (unknown) Smoking Status (units (unknown) date) Current every day unknown) smoker (unknown) (no (unknown) (unknown) Sodium 135 L (units (u nknown) date) unknown) (unknown) (no (unknown) (unknown) Sodium (units (unkno wn) date) unknown) (unknown) (no (unknown) (unknown) Staph skin (units (unk nown) date) infection unknown) (unknown) (no (unknown) (unknown) Substance Use (units ( unknown) date) Type does not use unknown) (unknown) (no (unknown) (unknown) Surgical History (units (unknown) date) (Reviewed unknown) 01/21/22 @ 15:14 by Lilian Armstrong DO) (unknown) (no (unknown) (unknown) Tachycardia (units (un known) date) unknown) (unknown) (no (unknown) (unknown) Temperature 97.5 (units (unknown) date) F L 98.1 F unknown) (unknown) (no (unknown) (unknown) Temperature 97.7 (units (unknown) date) F 98.7 F unknown) (unknown) (no (unknown) (unknown) Temperature 99.0 (units (unknown) date) F 99.0 F unknown) (unknown) (no (unknown) (unknown) Temperature (units (un known) date) unknown) (unknown) (no (unknown) (unknown) Time Spent With (units (unknown) date) Patient unknown) (unknown) (no (unknown) (unknown) Tobacco + (units (unkn own) date) Substance use: unknown) (unknown) (no (unknown) (unknown) Total Bilirubin (units (unknown) date) 0.4 unknown) (unknown) (no (unknown) (unknown) Total Bilirubin (units (unknown) date) unknown) (unknown) (no (unknown) (unknown) Total Creatine (units (unknown) date) Kinase 41 unknown) (unknown) (no (unknown) (unknown) Total Creatine (units (unknown) date) Kinase unknown) (unknown) (no (unknown) (unknown) Total Protein (units ( unknown) date) 5.4 L unknown) (unknown) (no (unknown) (unknown) Total Protein (units ( unknown) date) unknown) (unknown) (no (unknown) (unknown) Troponin I < (units (u nknown) date) 0.012 unknown) (unknown) (no (unknown) (unknown) Troponin I (units (unk nown) date) unknown) (unknown) (no (unknown) (unknown) Vital Signs (units (un known) date) unknown) (unknown) (no (unknown) (unknown) WBC 11.5 H (units (unk nown) date) unknown) (unknown) (no (unknown) (unknown) WBC (units (unkno wn) date) unknown) (unknown) (no (unknown) (unknown) [Embedded Image (units (unknown) date) Not Available] unknown) (unknown) (no (unknown) (unknown) [From NASONEX] (units (unknown) date) unknown) (unknown) (no (unknown) (unknown) aerosol inhaler (units (unknown) date) (Ventolin HFA) unknown) shortness of breath or wheezing (unknown) (no (unknown) (unknown) albuterol (units (unkn own) date) sulfate 90 unknown) mcg/actuation 1 puff inhalation Q6H PRN 11/14/21 01/21/22 (unknown) (no (unknown) (unknown) alcohol intake (units (unknown) date) current unknown) (unknown) (no (unknown) (unknown) alcohol intake (units (unknown) date) frequency 3 or unknown) more drinks per day (unknown) (no (unknown) (unknown) amlodipine 5 mg (units (unknown) date) tablet 5 mg PO unknown) BID 01/02/22 01/21/22 History (unknown) (no (unknown) (unknown) angustifolia) (units ( unknown) date) sinus unknown) (unknown) (no (unknown) (unknown) breathe (units (unkno wn) date) unknown) (unknown) (no (unknown) (unknown) breathing (units (unkn own) date) unknown) (unknown) (no (unknown) (unknown) cannot (units (unkno wn) date) unknown) (unknown) (no (unknown) (unknown) clobetasol 0.05 (units (unknown) date) % scalp solution unknown) 1 applic topical BEDTIME #25 mL 03/03/21 (unknown) (no (unknown) (unknown) closes, (units (unkno wn) date) unknown) (unknown) (no (unknown) (unknown) congestion (units (unk nown) date) unknown) (unknown) (no (unknown) (unknown) grass pollen (units (u nknown) date) Allergy sinus unknown) Verified 01/02/22 13:27 (unknown) (no (unknown) (unknown) lavender (units (unkno wn) date) (Lavandula unknown) Allergy severe Verified 01/02/22 13:27 (unknown) (no (unknown) (unknown) metoprolol (units (unk nown) date) succinate 50 mg unknown) 50 mg PO BID #180 tabs 01/02/22 01/21/22 Rx (unknown) (no (unknown) (unknown) mometasone (units (unk nown) date) furoate Allergy unknown) Unknown Verified 01/02/22 13:27 (unknown) (no (unknown) (unknown) pine tanya Allergy (units (unknown) date) Severe throat unknown) Uncoded 01/02/22 13:27 (unknown) (no (unknown) (unknown) pramipexole 0.25 (units (unknown) date) mg tablet 0.25 mg unknown) PO BEDTIME #90 tabs 01/02/22 01/21/22 Rx (unknown) (no (unknown) (unknown) release 24 hr (units ( unknown) date) (Detrol LA) unknown) (unknown) (no (unknown) (unknown) rivaroxaban 20 (units (unknown) date) mg tablet unknown) (Xarelto) 20 mg PO DAILY 01/21/22 01/21/22 History (unknown) (no (unknown) (unknown) spironolactone (units (unknown) date) 25 mg tablet 25 unknown) mg PO DAILY 03/03/21 01/21/22 History (unknown) (no (unknown) (unknown) swelling, (units (unkn own) date) unknown) (unknown) (no (unknown) (unknown) tablet,extended (units (unknown) date) release 24 hr unknown) (unknown) (no (unknown) (unknown) tiotropium (units (unk nown) date) bromide 18 mcg unknown) capsule 1 cap inhalation DAILY #90 10/28/20 01/21/22 (unknown) (no (unknown) (unknown) today; this time (units (unknown) date) is exclusive of unknown) procedural time. (unknown) (no (unknown) (unknown) tolterodine 2 mg (units (unknown) date) capsule,extended unknown) 2 mg PO BEDTIME #90 caps 01/02/22 01/21/22 Rx (unknown) (no (unknown) (unknown) trouble (units (unkno wn) date) unknown) (unknown) (no (unknown) (unknown) with HandiHaler) (units (unknown) date) unknown) (unknown) (no (unknown) (unknown) with inhalation (units (unknown) date) device (Spiriva unknown) inhalations Result panel 28 (unknown) (no (unknown) (unknown) (no value) (units (unk nown) date) unknown) (unknown) (no (unknown) (unknown) #18 grams (units (unkn own) date) unknown) (unknown) (no (unknown) (unknown) (Mirapex) (units (unkn own) date) unknown) (unknown) (no (unknown) (unknown) (past 8 hours): (units (unknown) date) unknown) (unknown) (no (unknown) (unknown) 01/21/22 (units (unkno wn) date) 01/21/22 01/21/22 unknown) (unknown) (no (unknown) (unknown) 01/21/22 14:50 (units (unknown) date) unknown) (unknown) (no (unknown) (unknown) 01/21/22 Rx (units (un known) date) unknown) (unknown) (no (unknown) (unknown) 01/21/22 (units (unkno wn) date) unknown) (unknown) (no (unknown) (unknown) 14:40 01/21/22 (units (unknown) date) unknown) (unknown) (no (unknown) (unknown) 14:50 14:50 (units (un known) date) 14:50 unknown) (unknown) (no (unknown) (unknown) 14:50 (units (unkno wn) date) unknown) (unknown) (no (unknown) (unknown) 14:55 01/21/22 (units (unknown) date) unknown) (unknown) (no (unknown) (unknown) 15:00 (units (unkno wn) date) unknown) (unknown) (no (unknown) (unknown) 15:23 01/21/22 (units (unknown) date) unknown) (unknown) (no (unknown) (unknown) 15:24 01/21/22 (units (unknown) date) unknown) (unknown) (no (unknown) (unknown) 15:24 (units (unkno wn) date) unknown) (unknown) (no (unknown) (unknown) 15:30 01/21/22 (units (unknown) date) unknown) (unknown) (no (unknown) (unknown) 15:38 01/21/22 (units (unknown) date) unknown) (unknown) (no (unknown) (unknown) 15:38 (units (unkno wn) date) unknown) (unknown) (no (unknown) (unknown) 15:45 (units (unkno wn) date) unknown) (unknown) (no (unknown) (unknown) 16:00 01/21/22 (units (unknown) date) unknown) (unknown) (no (unknown) (unknown) 16:02 01/21/22 (units (unknown) date) unknown) (unknown) (no (unknown) (unknown) 16:02 (units (unkno wn) date) unknown) (unknown) (no (unknown) (unknown) 16:10 01/21/22 (units (unknown) date) unknown) (unknown) (no (unknown) (unknown) 16:10 (units (unkno wn) date) unknown) (unknown) (no (unknown) (unknown) 16:15 01/21/22 (units (unknown) date) unknown) (unknown) (no (unknown) (unknown) 16:30 01/21/22 (units (unknown) date) unknown) (unknown) (no (unknown) (unknown) 16:30 (units (unkno wn) date) unknown) (unknown) (no (unknown) (unknown) 16:31 01/21/22 (units (unknown) date) unknown) (unknown) (no (unknown) (unknown) 16:45 01/21/22 (units (unknown) date) unknown) (unknown) (no (unknown) (unknown) 16:55 (units (unkno wn) date) unknown) (unknown) (no (unknown) (unknown) 17:29 01/21/22 (units (unknown) date) unknown) (unknown) (no (unknown) (unknown) 17:53 01/21/22 (units (unknown) date) unknown) (unknown) (no (unknown) (unknown) 18:20 01/21/22 (units (unknown) date) unknown) (unknown) (no (unknown) (unknown) 18:25 (units (unkno wn) date) unknown) (unknown) (no (unknown) (unknown) 18:46 01/21/22 (units (unknown) date) unknown) (unknown) (no (unknown) (unknown) 18:48 (units (unkno wn) date) unknown) (unknown) (no (unknown) (unknown) [address] (units (unkno wn) date) unknown) (unknown) (no (unknown) (unknown) ALT 14 (units (unkno wn) date) unknown) (unknown) (no (unknown) (unknown) ALT (units (unkno wn) date) unknown) (unknown) (no (unknown) (unknown) APTT 25 L (units (unkn own) date) unknown) (unknown) (no (unknown) (unknown) APTT (units (unkno wn) date) unknown) (unknown) (no (unknown) (unknown) AST 45 H (units (unkno wn) date) unknown) (unknown) (no (unknown) (unknown) AST (units (unkno wn) date) unknown) (unknown) (no (unknown) (unknown) Abdominal pain (units (unknown) date) unknown) (unknown) (no (unknown) (unknown) Age/Sex: 56 / F (units (unknown) date) unknown) (unknown) (no (unknown) (unknown) Albumin 2.9 L (units ( unknown) date) unknown) (unknown) (no (unknown) (unknown) Albumin (units (unkno wn) date) unknown) (unknown) (no (unknown) (unknown) Albumin/Globulin (units (unknown) date) Ratio 1.2 unknown) (unknown) (no (unknown) (unknown) Albumin/Globulin (units (unknown) date) Ratio unknown) (unknown) (no (unknown) (unknown) Alkaline (units (unkno wn) date) Phosphatase 39 unknown) (unknown) (no (unknown) (unknown) Alkaline (units (unkno wn) date) Phosphatase unknown) (unknown) (no (unknown) (unknown) Allergic (units (unkno wn) date) dermatitis of unknown) eyelids of both eyes (unknown) (no (unknown) (unknown) Allergies (units (unkn own) date) unknown) (unknown) (no (unknown) (unknown) Allergy/AdvReac (units (unknown) date) Type Severity unknown) Reaction Status Date / Time (unknown) (no (unknown) (unknown) Anemia (units (unkno wn) date) unknown) (unknown) (no (unknown) (unknown) Anisocytosis 2+ (units (unknown) date) H unknown) (unknown) (no (unknown) (unknown) Anisocytosis (units (u nknown) date) unknown) (unknown) (no (unknown) (unknown) Antibody Screen (units (unknown) date) Negative unknown) (unknown) (no (unknown) (unknown) Antibody Screen (units (unknown) date) unknown) (unknown) (no (unknown) (unknown) Arthritis (units (unkn own) date) (Unknown) unknown) (unknown) (no (unknown) (unknown) Assessment + (units (u nknown) date) Plan unknown) (unknown) (no (unknown) (unknown) Asthma (Unknown) (units (unknown) date) unknown) (unknown) (no (unknown) (unknown) Asthma (units (unkno wn) date) unknown) (unknown) (no (unknown) (unknown) BUN 37 H (units (unkno wn) date) unknown) (unknown) (no (unknown) (unknown) BUN (units (unkno wn) date) unknown) (unknown) (no (unknown) (unknown) BUN/Creatinine (units (unknown) date) Ratio 47.4 H unknown) (unknown) (no (unknown) (unknown) BUN/Creatinine (units (unknown) date) Ratio unknown) (unknown) (no (unknown) (unknown) Baso # (Auto) (units ( unknown) date) 100 unknown) (unknown) (no (unknown) (unknown) Baso # (Auto) (units ( unknown) date) unknown) (unknown) (no (unknown) (unknown) Baso % (Auto) (units ( unknown) date) 0.6 unknown) (unknown) (no (unknown) (unknown) Baso % (Auto) (units ( unknown) date) unknown) (unknown) (no (unknown) (unknown) Blood Pressure (units (unknown) date) 100/52 L 112/57 L unknown) (unknown) (no (unknown) (unknown) Blood Pressure (units (unknown) date) 102/53 L unknown) (unknown) (no (unknown) (unknown) Blood Pressure (units (unknown) date) 104/51 L unknown) (unknown) (no (unknown) (unknown) Blood Pressure (units (unknown) date) 105/51 L unknown) (unknown) (no (unknown) (unknown) Blood Pressure (units (unknown) date) 105/61 105/61 unknown) (unknown) (no (unknown) (unknown) Blood Pressure (units (unknown) date) 113/51 L 95/54 L unknown) 101/57 L (unknown) (no (unknown) (unknown) Blood Pressure (units (unknown) date) 88/48 L 90/49 L unknown) (unknown) (no (unknown) (unknown) Blood Pressure (units (unknown) date) 91/44 L unknown) (unknown) (no (unknown) (unknown) Blood Pressure (units (unknown) date) 95/54 L unknown) (unknown) (no (unknown) (unknown) Blood Pressure (units (unknown) date) unknown) (unknown) (no (unknown) (unknown) Blood Type O (units (u nknown) date) Negative unknown) (unknown) (no (unknown) (unknown) Blood Type (units (unk nown) date) unknown) (unknown) (no (unknown) (unknown) CK-MB (CK-2) Rel (units (unknown) date) Index TNP unknown) (unknown) (no (unknown) (unknown) CK-MB (CK-2) Rel (units (unknown) date) Index unknown) (unknown) (no (unknown) (unknown) CK-MB (CK-2) TNP (units (unknown) date) unknown) (unknown) (no (unknown) (unknown) CK-MB (CK-2) (units (u nknown) date) unknown) (unknown) (no (unknown) (unknown) COPD (chronic (units ( unknown) date) obstructive unknown) pulmonary disease) (unknown) (no (unknown) (unknown) Calcium 7.9 L (units ( unknown) date) unknown) (unknown) (no (unknown) (unknown) Calcium (units (unkno wn) date) unknown) (unknown) (no (unknown) (unknown) Carbon Dioxide (units (unknown) date) 28 unknown) (unknown) (no (unknown) (unknown) Carbon Dioxide (units (unknown) date) unknown) (unknown) (no (unknown) (unknown) Carpal tunnel (units ( unknown) date) syndrome (-2017) unknown) (unknown) (no (unknown) (unknown) Chief complaint: (units (unknown) date) Coffee ground unknown) emesis, CHF, +thinners (unknown) (no (unknown) (unknown) Chloride 100 (units (u nknown) date) unknown) (unknown) (no (unknown) (unknown) Chloride (units (unkno wn) date) unknown) (unknown) (no (unknown) (unknown) Chronic atrial (units (unknown) date) fibrillation unknown) (unknown) (no (unknown) (unknown) Cor pulmonale (units ( unknown) date) (chronic) unknown) (unknown) (no (unknown) (unknown) Creatinine 0.78 (units (unknown) date) unknown) (unknown) (no (unknown) (unknown) Creatinine (units (unk nown) date) unknown) (unknown) (no (unknown) (unknown) Critical Care (units ( unknown) date) time: unknown) (unknown) (no (unknown) (unknown) Crossmatch See (units (unknown) date) Detail unknown) (unknown) (no (unknown) (unknown) Crossmatch (units (unk nown) date) unknown) (unknown) (no (unknown) (unknown) : 1965 (units (unknown) date) Acct:[id number] unknown) (unknown) (no (unknown) (unknown) Date of Service: (units (unknown) date) 01/21/22 unknown) (unknown) (no (unknown) (unknown) Eczema (units (unkno wn) date) unknown) (unknown) (no (unknown) (unknown) Environment (units (un known) date) unknown) (unknown) (no (unknown) (unknown) Eos # (Auto) 0 (units (unknown) date) unknown) (unknown) (no (unknown) (unknown) Eos # (Auto) (units (u nknown) date) unknown) (unknown) (no (unknown) (unknown) Eos % (Auto) 0.1 (units (unknown) date) L unknown) (unknown) (no (unknown) (unknown) Eos % (Auto) (units (u nknown) date) unknown) (unknown) (no (unknown) (unknown) Estimated GFR > (units (unknown) date) 60 unknown) (unknown) (no (unknown) (unknown) Estimated GFR (units ( unknown) date) unknown) (unknown) (no (unknown) (unknown) Ethyl Alcohol < (units (unknown) date) 10 unknown) (unknown) (no (unknown) (unknown) Ethyl Alcohol (units ( unknown) date) unknown) (unknown) (no (unknown) (unknown) Exam (units (unkno wn) date) unknown) (unknown) (no (unknown) (unknown) Family + Social (units (unknown) date) History unknown) (unknown) (no (unknown) (unknown) Family History (units (unknown) date) (Reviewed unknown) 01/21/22 @ 15:14 by Lilian Armstrong DO) (unknown) (no (unknown) (unknown) Feels Safe in (units ( unknown) date) Current Yes unknown) (unknown) (no (unknown) (unknown) Globulin 2.5 (units (u nknown) date) unknown) (unknown) (no (unknown) (unknown) Globulin (units (unkno wn) date) unknown) (unknown) (no (unknown) (unknown) Glucose 113 H (units ( unknown) date) unknown) (unknown) (no (unknown) (unknown) Glucose (units (unkno wn) date) unknown) (unknown) (no (unknown) (unknown) Hct 12.8 L* (units (un known) date) unknown) (unknown) (no (unknown) (unknown) Hct (units (unkno wn) date) unknown) (unknown) (no (unknown) (unknown) Hgb 3.9 L* (units (unk nown) date) unknown) (unknown) (no (unknown) (unknown) Hgb (units (unkno wn) date) unknown) (unknown) (no (unknown) (unknown) History + (units (unkn own) date) Physical Report unknown) (unknown) (no (unknown) (unknown) History of (units (unk nown) date) Present Illness unknown) (unknown) (no (unknown) (unknown) History of (units (unk nown) date) hysterectomy for unknown) cancer (unknown) (no (unknown) (unknown) Home Medications (units (unknown) date) and Allergies unknown) (unknown) (no (unknown) (unknown) Home Medications (units (unknown) date) unknown) (unknown) (no (unknown) (unknown) Hypochromasia 3+ (units (unknown) date) H unknown) (unknown) (no (unknown) (unknown) Hypochromasia (units ( unknown) date) unknown) (unknown) (no (unknown) (unknown) I spent a total (units (unknown) date) of [] minutes of unknown) critical care time on this patient's care (unknown) (no (unknown) (unknown) INR 1.6 H (units (unkn own) date) unknown) (unknown) (no (unknown) (unknown) INR (units (unkno wn) date) unknown) (unknown) (no (unknown) (unknown) Impetigo (units (unkno wn) date) unknown) (unknown) (no (unknown) (unknown) Incontinence (units (u nknown) date) unknown) (unknown) (no (unknown) (unknown) [facility] (units (unknown) date) [address] unknown) [place] [address] (unknown) (no (unknown) (unknown) Laboratory (units (unk nown) date) Results - last unknown) hr (unknown) (no (unknown) (unknown) Labs (units (unkno wn) date) unknown) (unknown) (no (unknown) (unknown) Labs: (units (unkno wn) date) unknown) (unknown) (no (unknown) (unknown) Lymph # (Auto) (units (unknown) date) 1700 unknown) (unknown) (no (unknown) (unknown) Lymph # (Auto) (units (unknown) date) unknown) (unknown) (no (unknown) (unknown) Lymph % (Auto) (units (unknown) date) 14.7 L unknown) (unknown) (no (unknown) (unknown) Lymph % (Auto) (units (unknown) date) unknown) (unknown) (no (unknown) (unknown) MCH 23.0 L (units (unk nown) date) unknown) (unknown) (no (unknown) (unknown) MCH (units (unkno wn) date) unknown) (unknown) (no (unknown) (unknown) MCHC 30.3 (units (unkn own) date) unknown) (unknown) (no (unknown) (unknown) MCHC (units (unkno wn) date) unknown) (unknown) (no (unknown) (unknown) MCV 75.9 L (units (unk nown) date) unknown) (unknown) (no (unknown) (unknown) MCV (units (unkno wn) date) unknown) (unknown) (no (unknown) (unknown) Medical History (units (unknown) date) (Reviewed unknown) 01/21/22 @ 15:14 by Lilian Armstrong DO) (unknown) (no (unknown) (unknown) Medication (units (unk nown) date) Instructions unknown) Recorded Confirmed Type (unknown) (no (unknown) (unknown) Meds (units (unkno wn) date) unknown) (unknown) (no (unknown) (unknown) Lyon # (Auto) (units ( unknown) date) 1100 H unknown) (unknown) (no (unknown) (unknown) Lyon # (Auto) (units ( unknown) date) unknown) (unknown) (no (unknown) (unknown) Lyon % (Auto) (units ( unknown) date) 9.7 unknown) (unknown) (no (unknown) (unknown) Lyon % (Auto) (units ( unknown) date) unknown) (unknown) (no (unknown) (unknown) Morbid obesity (units (unknown) date) due to excess unknown) calories (unknown) (no (unknown) (unknown) Mother (units (unknown) date) CVA (cerebral unknown) vascular accident) (unknown) (no (unknown) (unknown) NT-Pro-B (units (unkno wn) date) Natriuret Pep 637 unknown) H (unknown) (no (unknown) (unknown) NT-Pro-B (units (unkno wn) date) Natriuret Pep unknown) (unknown) (no (unknown) (unknown) Narrative: (units (unk nown) date) unknown) (unknown) (no (unknown) (unknown) Neut # (Auto) (units ( unknown) date) 8600 H unknown) (unknown) (no (unknown) (unknown) Neut # (Auto) (units ( unknown) date) unknown) (unknown) (no (unknown) (unknown) Neut % (Auto) (units ( unknown) date) 74.9 unknown) (unknown) (no (unknown) (unknown) Neut % (Auto) (units ( unknown) date) unknown) (unknown) (no (unknown) (unknown) Objective (units (unkn own) date) unknown) (unknown) (no (unknown) (unknown) Oxygen Delivery (units (unknown) date) Method Nasal unknown) Cannula (unknown) (no (unknown) (unknown) Oxygen Delivery (units (unknown) date) Method Room Air unknown) Nasal Cannula Nasal Cannula (unknown) (no (unknown) (unknown) Oxygen Delivery (units (unknown) date) Method Room Air unknown) Nasal Cannula (unknown) (no (unknown) (unknown) Oxygen Delivery (units (unknown) date) Method Room Air unknown) Room Air (unknown) (no (unknown) (unknown) Oxygen Delivery (units (unknown) date) Method Room Air unknown) (unknown) (no (unknown) (unknown) Oxygen Delivery (units (unknown) date) Method unknown) (unknown) (no (unknown) (unknown) Oxygen Flow Rate (units (unknown) date) 2.5 unknown) (unknown) (no (unknown) (unknown) Oxygen Flow Rate (units (unknown) date) 4 unknown) (unknown) (no (unknown) (unknown) Oxygen Flow Rate (units (unknown) date) unknown) (unknown) (no (unknown) (unknown) PT 18.6 H (units (unkn own) date) unknown) (unknown) (no (unknown) (unknown) PT (units (unkno wn) date) unknown) (unknown) (no (unknown) (unknown) Patient History (units (unknown) date) unknown) (unknown) (no (unknown) (unknown) Patient: (units (unkno wn) date) Rosalba Pabon unknown) MR#: [id number] (unknown) (no (unknown) (unknown) Plt Count 331 (units ( unknown) date) unknown) (unknown) (no (unknown) (unknown) Plt Count (units (unkn own) date) unknown) (unknown) (no (unknown) (unknown) Poikilocytosis (units (unknown) date) 1+ H unknown) (unknown) (no (unknown) (unknown) Poikilocytosis (units (unknown) date) unknown) (unknown) (no (unknown) (unknown) Polychromasia 1+ (units (unknown) date) H unknown) (unknown) (no (unknown) (unknown) Polychromasia (units ( unknown) date) unknown) (unknown) (no (unknown) (unknown) Potassium 3.6 (units ( unknown) date) unknown) (unknown) (no (unknown) (unknown) Potassium (units (unkn own) date) unknown) (unknown) (no (unknown) (unknown) Provider: (units (unkn own) date) Rajiv Simon unknown) juliet STEVENSON (unknown) (no (unknown) (unknown) Pulmonary (units (unkn own) date) hypertension unknown) (unknown) (no (unknown) (unknown) Pulse Oximetry (units (unknown) date) 100 99 unknown) (unknown) (no (unknown) (unknown) Pulse Oximetry (units (unknown) date) 88 L 93 unknown) (unknown) (no (unknown) (unknown) Pulse Oximetry (units (unknown) date) 93 94 unknown) (unknown) (no (unknown) (unknown) Pulse Oximetry (units (unknown) date) 94 unknown) (unknown) (no (unknown) (unknown) Pulse Oximetry (units (unknown) date) 96 99 94 unknown) (unknown) (no (unknown) (unknown) Pulse Oximetry (units (unknown) date) 98 92 unknown) (unknown) (no (unknown) (unknown) Pulse Oximetry (units (unknown) date) unknown) (unknown) (no (unknown) (unknown) Pulse Rate 105 H (units (unknown) date) 106 H 110 H unknown) (unknown) (no (unknown) (unknown) Pulse Rate 108 H (units (unknown) date) 119 H unknown) (unknown) (no (unknown) (unknown) Pulse Rate 108 H (units (unknown) date) unknown) (unknown) (no (unknown) (unknown) Pulse Rate 109 H (units (unknown) date) 112 H 111 H unknown) (unknown) (no (unknown) (unknown) Pulse Rate 109 H (units (unknown) date) 112 H unknown) (unknown) (no (unknown) (unknown) Pulse Rate 110 H (units (unknown) date) 114 H unknown) (unknown) (no (unknown) (unknown) Pulse Rate 111 H (units (unknown) date) 110 H unknown) (unknown) (no (unknown) (unknown) Pulse Rate 115 H (units (unknown) date) 83 84 unknown) (unknown) (no (unknown) (unknown) Pulse Rate 118 H (units (unknown) date) 107 H unknown) (unknown) (no (unknown) (unknown) Pulse Rate (units (unk nown) date) unknown) (unknown) (no (unknown) (unknown) RBC 1.68 L (units (unk nown) date) unknown) (unknown) (no (unknown) (unknown) RBC Morphology (units (unknown) date) Not Reportable unknown) (unknown) (no (unknown) (unknown) RBC Morphology (units (unknown) date) unknown) (unknown) (no (unknown) (unknown) RBC (units (unkno wn) date) unknown) (unknown) (no (unknown) (unknown) RDW 21.9 H (units (unk nown) date) unknown) (unknown) (no (unknown) (unknown) RDW (units (unkno wn) date) unknown) (unknown) (no (unknown) (unknown) Respiratory Rate (units (unknown) date) 18 18 28 H unknown) (unknown) (no (unknown) (unknown) Respiratory Rate (units (unknown) date) 18 18 unknown) (unknown) (no (unknown) (unknown) Respiratory Rate (units (unknown) date) 18 25 H 27 H unknown) (unknown) (no (unknown) (unknown) Respiratory Rate (units (unknown) date) 22 unknown) (unknown) (no (unknown) (unknown) Respiratory Rate (units (unknown) date) 23 26 H unknown) (unknown) (no (unknown) (unknown) Respiratory Rate (units (unknown) date) 25 H 28 H unknown) (unknown) (no (unknown) (unknown) Respiratory Rate (units (unknown) date) 26 H 30 H unknown) (unknown) (no (unknown) (unknown) Respiratory Rate (units (unknown) date) 28 H unknown) (unknown) (no (unknown) (unknown) Respiratory Rate (units (unknown) date) 34 H 22 22 unknown) (unknown) (no (unknown) (unknown) Respiratory Rate (units (unknown) date) unknown) (unknown) (no (unknown) (unknown) Restless leg (units (u nknown) date) syndrome unknown) (unknown) (no (unknown) (unknown) Result Diagrams: (units (unknown) date) unknown) (unknown) (no (unknown) (unknown) Right-sided low (units (unknown) date) back pain with unknown) sciatica (unknown) (no (unknown) (unknown) Rx (units (unkno wn) date) unknown) (unknown) (no (unknown) (unknown) SARS-CoV-2 (PCR) (units (unknown) date) Negative unknown) (unknown) (no (unknown) (unknown) SARS-CoV-2 (PCR) (units (unknown) date) unknown) (unknown) (no (unknown) (unknown) Safety + (units (unkno wn) date) Behavioral: unknown) (unknown) (no (unknown) (unknown) Signed By: (units (unk nown) date) unknown) (unknown) (no (unknown) (unknown) Smoking Status (units (unknown) date) Current every day unknown) smoker (unknown) (no (unknown) (unknown) Sodium 135 L (units (u nknown) date) unknown) (unknown) (no (unknown) (unknown) Sodium (units (unkno wn) date) unknown) (unknown) (no (unknown) (unknown) Staph skin (units (unk nown) date) infection unknown) (unknown) (no (unknown) (unknown) Substance Use (units ( unknown) date) Type does not use unknown) (unknown) (no (unknown) (unknown) Surgical History (units (unknown) date) (Reviewed unknown) 01/21/22 @ 15:14 by Lilian Armstrong DO) (unknown) (no (unknown) (unknown) Tachycardia (units (un known) date) unknown) (unknown) (no (unknown) (unknown) Temperature 97.5 (units (unknown) date) F L 98.1 F unknown) (unknown) (no (unknown) (unknown) Temperature 97.7 (units (unknown) date) F 98.7 F unknown) (unknown) (no (unknown) (unknown) Temperature 99.0 (units (unknown) date) F 99.0 F unknown) (unknown) (no (unknown) (unknown) Temperature (units (un known) date) unknown) (unknown) (no (unknown) (unknown) This is a (units (unkn own) date) 56-year-old unknown) female with history of pulmonary hypertension, COPD, CHF, (unknown) (no (unknown) (unknown) Time Spent With (units (unknown) date) Patient unknown) (unknown) (no (unknown) (unknown) Tobacco + (units (unkn own) date) Substance use: unknown) (unknown) (no (unknown) (unknown) Total Bilirubin (units (unknown) date) 0.4 unknown) (unknown) (no (unknown) (unknown) Total Bilirubin (units (unknown) date) unknown) (unknown) (no (unknown) (unknown) Total Creatine (units (unknown) date) Kinase 41 unknown) (unknown) (no (unknown) (unknown) Total Creatine (units (unknown) date) Kinase unknown) (unknown) (no (unknown) (unknown) Total Protein (units ( unknown) date) 5.4 L unknown) (unknown) (no (unknown) (unknown) Total Protein (units ( unknown) date) unknown) (unknown) (no (unknown) (unknown) Troponin I < (units (u nknown) date) 0.012 unknown) (unknown) (no (unknown) (unknown) Troponin I (units (unk nown) date) unknown) (unknown) (no (unknown) (unknown) Vital Signs (units (un known) date) unknown) (unknown) (no (unknown) (unknown) WBC 11.5 H (units (unk nown) date) unknown) (unknown) (no (unknown) (unknown) WBC (units (unkno wn) date) unknown) (unknown) (no (unknown) (unknown) [Embedded Image (units (unknown) date) Not Available] unknown) (unknown) (no (unknown) (unknown) [From NASONEX] (units (unknown) date) unknown) (unknown) (no (unknown) (unknown) aerosol inhaler (units (unknown) date) (Ventolin HFA) unknown) shortness of breath or wheezing (unknown) (no (unknown) (unknown) albuterol (units (unkn own) date) sulfate 90 unknown) mcg/actuation 1 puff inhalation Q6H PRN 11/14/21 01/21/22 (unknown) (no (unknown) (unknown) alcohol intake (units (unknown) date) current unknown) (unknown) (no (unknown) (unknown) alcohol intake (units (unknown) date) frequency 3 or unknown) more drinks per day (unknown) (no (unknown) (unknown) amlodipine 5 mg (units (unknown) date) tablet 5 mg PO unknown) BID 01/02/22 01/21/22 History (unknown) (no (unknown) (unknown) angustifolia) (units ( unknown) date) sinus unknown) (unknown) (no (unknown) (unknown) atrial (units (unkno wn) date) fibrillation on unknown) Xarelto with complaint of coffee-ground emesis and (unknown) (no (unknown) (unknown) breath.? She is (units (unknown) date) had nausea and unknown) vomiting she states she is thrown up 5 times (unknown) (no (unknown) (unknown) breathe (units (unkno wn) date) unknown) (unknown) (no (unknown) (unknown) breathing (units (unkn own) date) unknown) (unknown) (no (unknown) (unknown) cannot (units (unkno wn) date) unknown) (unknown) (no (unknown) (unknown) clobetasol 0.05 (units (unknown) date) % scalp solution unknown) 1 applic topical BEDTIME #25 mL 03/03/21 (unknown) (no (unknown) (unknown) closes, (units (unkno wn) date) unknown) (unknown) (no (unknown) (unknown) colonoscopy.? (units ( unknown) date) She does still unknown) smoke, she drinks 2-3 white claws daily, no (unknown) (no (unknown) (unknown) congestion (units (unk nown) date) unknown) (unknown) (no (unknown) (unknown) grass pollen (units (u nknown) date) Allergy sinus unknown) Verified 01/02/22 13:27 (unknown) (no (unknown) (unknown) has resolved when (units (unknown) date) she is not unknown) exerting herself as well as feels actively short of (unknown) (no (unknown) (unknown) illicit.? She is (units (unknown) date) been taking unknown) ibuprofen 8 tablets of 200 mg ibuprofen. (unknown) (no (unknown) (unknown) lavender (units (unkno wn) date) (Lavandula unknown) Allergy severe Verified 01/02/22 13:27 (unknown) (no (unknown) (unknown) like since (units (unk nown) date) Wednesday.? Patient unknown) denies any swelling of extremities.? She is had a (unknown) (no (unknown) (unknown) melanotic stools (units (unknown) date) since Wednesday or unknown) Wednesday the 18 of January.? Patient also notes (unknown) (no (unknown) (unknown) metoprolol (units (unk nown) date) succinate 50 mg unknown) 50 mg PO BID #180 tabs 01/02/22 01/21/22 Rx (unknown) (no (unknown) (unknown) mometasone (units (unk nown) date) furoate Allergy unknown) Unknown Verified 01/02/22 13:27 (unknown) (no (unknown) (unknown) not felt well she (units (unknown) date) is felt unknown) increasingly fatigued lightheaded like she is going to (unknown) (no (unknown) (unknown) pass out she has (units (unknown) date) not had actual unknown) syncope, she has had some chest pressure which (unknown) (no (unknown) (unknown) pine tanya Allergy (units (unknown) date) Severe throat unknown) Uncoded 01/02/22 13:27 (unknown) (no (unknown) (unknown) pramipexole 0.25 (units (unknown) date) mg tablet 0.25 mg unknown) PO BEDTIME #90 tabs 01/02/22 01/21/22 Rx (unknown) (no (unknown) (unknown) prior complete (units (unknown) date) hysterectomy, she unknown) is supposed to be seen for EGD and (unknown) (no (unknown) (unknown) release 24 hr (units ( unknown) date) (Detrol LA) unknown) (unknown) (no (unknown) (unknown) rivaroxaban 20 (units (unknown) date) mg tablet unknown) (Xarelto) 20 mg PO DAILY 01/21/22 01/21/22 History (unknown) (no (unknown) (unknown) she was having (units (unknown) date) episodes at least unknown) a couple weeks ago.? Patient has noted she has (unknown) (no (unknown) (unknown) since Wednesday.? (units (unknown) date) She has had unknown) multiple lack stools that she describes as diarrhea (unknown) (no (unknown) (unknown) spironolactone (units (unknown) date) 25 mg tablet 25 unknown) mg PO DAILY 03/03/21 01/21/22 History (unknown) (no (unknown) (unknown) swelling, (units (unkn own) date) unknown) (unknown) (no (unknown) (unknown) tablet,extended (units (unknown) date) release 24 hr unknown) (unknown) (no (unknown) (unknown) tiotropium (units (unk nown) date) bromide 18 mcg unknown) capsule 1 cap inhalation DAILY #90 10/28/20 01/21/22 (unknown) (no (unknown) (unknown) today; this time (units (unknown) date) is exclusive of unknown) procedural time. (unknown) (no (unknown) (unknown) tolterodine 2 mg (units (unknown) date) capsule,extended unknown) 2 mg PO BEDTIME #90 caps 01/02/22 01/21/22 Rx (unknown) (no (unknown) (unknown) trouble (units (unkno wn) date) unknown) (unknown) (no (unknown) (unknown) with HandiHaler) (units (unknown) date) unknown) (unknown) (no (unknown) (unknown) with inhalation (units (unknown) date) device (Spiriva unknown) inhalations Result panel 29 (unknown) (no (unknown) (unknown) (no value) (units (unk nown) date) unknown) (unknown) (no (unknown) (unknown) #18 grams (units (unkn own) date) unknown) (unknown) (no (unknown) (unknown) (1) Essential (units ( unknown) date) hypertension: unknown) (unknown) (no (unknown) (unknown) (2) GI bleed: (units ( unknown) date) unknown) (unknown) (no (unknown) (unknown) (3) Symptomatic (units (unknown) date) anemia: unknown) (unknown) (no (unknown) (unknown) (4) Chronic (units (un known) date) atrial unknown) fibrillation: (unknown) (no (unknown) (unknown) (5) Pulmonary (units ( unknown) date) hypertension: unknown) (unknown) (no (unknown) (unknown) (6) Morbid (units (unk nown) date) obesity due to unknown) excess calories: (unknown) (no (unknown) (unknown) (7) COPD (chronic (units (unknown) date) obstructive unknown) pulmonary disease): (unknown) (no (unknown) (unknown) (Mirapex) (units (unkn own) date) unknown) (unknown) (no (unknown) (unknown) (past 8 hours): (units (unknown) date) unknown) (unknown) (no (unknown) (unknown) 01/21/22 01/21/22 (units (unknown) date) 01/21/22 unknown) (unknown) (no (unknown) (unknown) 01/21/22 14:50 (units (unknown) date) unknown) (unknown) (no (unknown) (unknown) 01/21/22 2109 (units ( unknown) date) unknown) (unknown) (no (unknown) (unknown) 01/21/22 Rx (units (un known) date) unknown) (unknown) (no (unknown) (unknown) 01/21/22 (units (unkno wn) date) unknown) (unknown) (no (unknown) (unknown) 14:40 01/21/22 (units (unknown) date) unknown) (unknown) (no (unknown) (unknown) 14:50 14:50 14:50 (units (unknown) date) unknown) (unknown) (no (unknown) (unknown) 14:50 (units (unkno wn) date) unknown) (unknown) (no (unknown) (unknown) 14:55 01/21/22 (units (unknown) date) unknown) (unknown) (no (unknown) (unknown) 15:00 (units (unkno wn) date) unknown) (unknown) (no (unknown) (unknown) 15:23 01/21/22 (units (unknown) date) unknown) (unknown) (no (unknown) (unknown) 15:24 01/21/22 (units (unknown) date) unknown) (unknown) (no (unknown) (unknown) 15:24 (units (unkno wn) date) unknown) (unknown) (no (unknown) (unknown) 15:30 01/21/22 (units (unknown) date) unknown) (unknown) (no (unknown) (unknown) 15:38 01/21/22 (units (unknown) date) unknown) (unknown) (no (unknown) (unknown) 15:38 (units (unkno wn) date) unknown) (unknown) (no (unknown) (unknown) 15:45 (units (unkno wn) date) unknown) (unknown) (no (unknown) (unknown) 16:00 01/21/22 (units (unknown) date) unknown) (unknown) (no (unknown) (unknown) 16:02 01/21/22 (units (unknown) date) unknown) (unknown) (no (unknown) (unknown) 16:02 (units (unkno wn) date) unknown) (unknown) (no (unknown) (unknown) 16:10 01/21/22 (units (unknown) date) unknown) (unknown) (no (unknown) (unknown) 16:10 (units (unkno wn) date) unknown) (unknown) (no (unknown) (unknown) 16:15 01/21/22 (units (unknown) date) unknown) (unknown) (no (unknown) (unknown) 16:30 01/21/22 (units (unknown) date) unknown) (unknown) (no (unknown) (unknown) 16:30 (units (unkno wn) date) unknown) (unknown) (no (unknown) (unknown) 16:31 01/21/22 (units (unknown) date) unknown) (unknown) (no (unknown) (unknown) 16:45 01/21/22 (units (unknown) date) unknown) (unknown) (no (unknown) (unknown) 16:55 (units (unkno wn) date) unknown) (unknown) (no (unknown) (unknown) 17:29 01/21/22 (units (unknown) date) unknown) (unknown) (no (unknown) (unknown) 17:53 01/21/22 (units (unknown) date) unknown) (unknown) (no (unknown) (unknown) 18:20 01/21/22 (units (unknown) date) unknown) (unknown) (no (unknown) (unknown) 18:25 (units (unkno wn) date) unknown) (unknown) (no (unknown) (unknown) 18:46 01/21/22 (units (unknown) date) unknown) (unknown) (no (unknown) (unknown) 18:48 (units (unkno wn) date) unknown) (unknown) (no (unknown) (unknown) [address] (units (unkno wn) date) unknown) (unknown) (no (unknown) (unknown) ALT 14 (units (unkno wn) date) unknown) (unknown) (no (unknown) (unknown) ALT (units (unkno wn) date) unknown) (unknown) (no (unknown) (unknown) APTT 25 L (units (unkn own) date) unknown) (unknown) (no (unknown) (unknown) APTT (units (unkno wn) date) unknown) (unknown) (no (unknown) (unknown) AST 45 H (units (unkno wn) date) unknown) (unknown) (no (unknown) (unknown) AST (units (unkno wn) date) unknown) (unknown) (no (unknown) (unknown) Abdominal pain (units (unknown) date) unknown) (unknown) (no (unknown) (unknown) Acute symptomatic (units (unknown) date) blood loss anemia unknown) most likely related to upper GI bleed (unknown) (no (unknown) (unknown) Age/Sex: 56 / F (units (unknown) date) unknown) (unknown) (no (unknown) (unknown) Albumin 2.9 L (units ( unknown) date) unknown) (unknown) (no (unknown) (unknown) Albumin (units (unkno wn) date) unknown) (unknown) (no (unknown) (unknown) Albumin/Globulin (units (unknown) date) Ratio 1.2 unknown) (unknown) (no (unknown) (unknown) Albumin/Globulin (units (unknown) date) Ratio unknown) (unknown) (no (unknown) (unknown) Alkaline (units (unkno wn) date) Phosphatase 39 unknown) (unknown) (no (unknown) (unknown) Alkaline (units (unkno wn) date) Phosphatase unknown) (unknown) (no (unknown) (unknown) All other systems (units (unknown) date) reviewed, negative unknown) other than as mentioned above in HPI (unknown) (no (unknown) (unknown) Allergic (units (unkno wn) date) dermatitis of unknown) eyelids of both eyes (unknown) (no (unknown) (unknown) Allergies (units (unkn own) date) unknown) (unknown) (no (unknown) (unknown) Allergy/AdvReac (units (unknown) date) Type Severity unknown) Reaction Status Date / Time (unknown) (no (unknown) (unknown) Anemia (units (unkno wn) date) unknown) (unknown) (no (unknown) (unknown) Anisocytosis 2+ H (units (unknown) date) unknown) (unknown) (no (unknown) (unknown) Anisocytosis (units (u nknown) date) unknown) (unknown) (no (unknown) (unknown) Antibody Screen (units (unknown) date) Negative unknown) (unknown) (no (unknown) (unknown) Antibody Screen (units (unknown) date) unknown) (unknown) (no (unknown) (unknown) Arthritis (units (unkn own) date) (Unknown) unknown) (unknown) (no (unknown) (unknown) Assessment + Plan (units (unknown) date) narrative: unknown) (unknown) (no (unknown) (unknown) Assessment + Plan (units (unknown) date) unknown) (unknown) (no (unknown) (unknown) Assessment and (units (unknown) date) plan unknown) (unknown) (no (unknown) (unknown) Asthma (Unknown) (units (unknown) date) unknown) (unknown) (no (unknown) (unknown) Asthma (units (unkno wn) date) unknown) (unknown) (no (unknown) (unknown) BUN 37 H (units (unkno wn) date) unknown) (unknown) (no (unknown) (unknown) BUN (units (unkno wn) date) unknown) (unknown) (no (unknown) (unknown) BUN/Creatinine (units (unknown) date) Ratio 47.4 H unknown) (unknown) (no (unknown) (unknown) BUN/Creatinine (units (unknown) date) Ratio unknown) (unknown) (no (unknown) (unknown) Baso # (Auto) 100 (units (unknown) date) unknown) (unknown) (no (unknown) (unknown) Baso # (Auto) (units ( unknown) date) unknown) (unknown) (no (unknown) (unknown) Baso % (Auto) 0.6 (units (unknown) date) unknown) (unknown) (no (unknown) (unknown) Baso % (Auto) (units ( unknown) date) unknown) (unknown) (no (unknown) (unknown) Blood Pressure (units (unknown) date) 100/52 L 112/57 L unknown) (unknown) (no (unknown) (unknown) Blood Pressure (units (unknown) date) 102/53 L unknown) (unknown) (no (unknown) (unknown) Blood Pressure (units (unknown) date) 104/51 L unknown) (unknown) (no (unknown) (unknown) Blood Pressure (units (unknown) date) 105/51 L unknown) (unknown) (no (unknown) (unknown) Blood Pressure (units (unknown) date) 105/61 105/61 unknown) (unknown) (no (unknown) (unknown) Blood Pressure (units (unknown) date) 113/51 L 95/54 L unknown) 101/57 L (unknown) (no (unknown) (unknown) Blood Pressure (units (unknown) date) 88/48 L 90/49 L unknown) (unknown) (no (unknown) (unknown) Blood Pressure (units (unknown) date) 91/44 L unknown) (unknown) (no (unknown) (unknown) Blood Pressure (units (unknown) date) 95/54 L unknown) (unknown) (no (unknown) (unknown) Blood Pressure (units (unknown) date) unknown) (unknown) (no (unknown) (unknown) Blood Type O (units (u nknown) date) Negative unknown) (unknown) (no (unknown) (unknown) Blood Type (units (unk nown) date) unknown) (unknown) (no (unknown) (unknown) CK-MB (CK-2) Rel (units (unknown) date) Index TNP unknown) (unknown) (no (unknown) (unknown) CK-MB (CK-2) Rel (units (unknown) date) Index unknown) (unknown) (no (unknown) (unknown) CK-MB (CK-2) TNP (units (unknown) date) unknown) (unknown) (no (unknown) (unknown) CK-MB (CK-2) (units (u nknown) date) unknown) (unknown) (no (unknown) (unknown) COPD (chronic (units ( unknown) date) obstructive unknown) pulmonary disease) (unknown) (no (unknown) (unknown) COPD type: (units (unk nown) date) chronic bronchitis unknown) Chronic bronchitis type: unspecified (unknown) (no (unknown) (unknown) COPD with mild (units (unknown) date) exacerbation unknown) -DuoNebs as needed, continuous pulse ox, O2 as (unknown) (no (unknown) (unknown) Calcium 7.9 L (units ( unknown) date) unknown) (unknown) (no (unknown) (unknown) Calcium (units (unkno wn) date) unknown) (unknown) (no (unknown) (unknown) Carbon Dioxide 28 (units (unknown) date) unknown) (unknown) (no (unknown) (unknown) Carbon Dioxide (units (unknown) date) unknown) (unknown) (no (unknown) (unknown) Care plan (units (unkno wn) date) discussed with the unknown) patient and answered all questions, offered to talk (unknown) (no (unknown) (unknown) Carpal tunnel (units ( unknown) date) syndrome (-2016) unknown) (unknown) (no (unknown) (unknown) Chief complaint: (units (unknown) date) Coffee ground unknown) emesis, CHF, +thinners (unknown) (no (unknown) (unknown) Chloride 100 (units (u nknown) date) unknown) (unknown) (no (unknown) (unknown) Chloride (units (unkno wn) date) unknown) (unknown) (no (unknown) (unknown) Chronic atrial (units (unknown) date) fibrillation unknown) (unknown) (no (unknown) (unknown) Comment: (units (unkno wn) date) unknown) (unknown) (no (unknown) (unknown) Cor pulmonale (units ( unknown) date) (chronic) unknown) (unknown) (no (unknown) (unknown) Creatinine 0.78 (units (unknown) date) unknown) (unknown) (no (unknown) (unknown) Creatinine (units (unk nown) date) unknown) (unknown) (no (unknown) (unknown) Critical Care (units ( unknown) date) time: unknown) (unknown) (no (unknown) (unknown) Crossmatch See (units (unknown) date) Detail unknown) (unknown) (no (unknown) (unknown) Crossmatch (units (unk nown) date) unknown) (unknown) (no (unknown) (unknown) : 1965 (units (unknown) date) Acct:[id number] unknown) (unknown) (no (unknown) (unknown) Date Patient (units (u nknown) date) Seen: 01/21/22 unknown) (unknown) (no (unknown) (unknown) Date of Onset of (units (unknown) date) Symptoms: 01/16/22 unknown) (unknown) (no (unknown) (unknown) Date of Service: (units (unknown) date) 01/21/22 unknown) (unknown) (no (unknown) (unknown) Eczema (units (unkno wn) date) unknown) (unknown) (no (unknown) (unknown) Environment (units (un known) date) unknown) (unknown) (no (unknown) (unknown) Eos # (Auto) 0 (units (unknown) date) unknown) (unknown) (no (unknown) (unknown) Eos # (Auto) (units (u nknown) date) unknown) (unknown) (no (unknown) (unknown) Eos % (Auto) 0.1 (units (unknown) date) L unknown) (unknown) (no (unknown) (unknown) Eos % (Auto) (units (u nknown) date) unknown) (unknown) (no (unknown) (unknown) Estimated GFR > (units (unknown) date) 60 unknown) (unknown) (no (unknown) (unknown) Estimated GFR (units ( unknown) date) unknown) (unknown) (no (unknown) (unknown) Ethyl Alcohol < (units (unknown) date) 10 unknown) (unknown) (no (unknown) (unknown) Ethyl Alcohol (units ( unknown) date) unknown) (unknown) (no (unknown) (unknown) Exam Narrative: (units (unknown) date) unknown) (unknown) (no (unknown) (unknown) Exam (units (unkno wn) date) unknown) (unknown) (no (unknown) (unknown) Family + Social (units (unknown) date) History unknown) (unknown) (no (unknown) (unknown) Family History (units (unknown) date) (Reviewed 01/21/22 unknown) @ 21:03 by Benito Simon MD) (unknown) (no (unknown) (unknown) Feels Safe in (units ( unknown) date) Current Yes unknown) (unknown) (no (unknown) (unknown) Wednesday.? She has (units (unknown) date) had multiple lack unknown) stools that she describes as diarrhea like (unknown) (no (unknown) (unknown) Globulin 2.5 (units (u nknown) date) unknown) (unknown) (no (unknown) (unknown) Globulin (units (unkno wn) date) unknown) (unknown) (no (unknown) (unknown) Glucose 113 H (units ( unknown) date) unknown) (unknown) (no (unknown) (unknown) Glucose (units (unkno wn) date) unknown) (unknown) (no (unknown) (unknown) Hct 12.8 L* (units (un known) date) unknown) (unknown) (no (unknown) (unknown) Hct (units (unkno wn) date) unknown) (unknown) (no (unknown) (unknown) Hgb 3.9 L* (units (unk nown) date) unknown) (unknown) (no (unknown) (unknown) Hgb (units (unkno wn) date) unknown) (unknown) (no (unknown) (unknown) History + (units (unkn own) date) Physical Report unknown) (unknown) (no (unknown) (unknown) History of (units (unk nown) date) Present Illness unknown) (unknown) (no (unknown) (unknown) History of (units (unk nown) date) hysterectomy for unknown) cancer (unknown) (no (unknown) (unknown) Hold (units (unkno wn) date) anticoagulation unknown) given active bleeding, SCDs for DVT prophylaxis, Protonix (unknown) (no (unknown) (unknown) Home Medications (units (unknown) date) and Allergies unknown) (unknown) (no (unknown) (unknown) Home Medications (units (unknown) date) unknown) (unknown) (no (unknown) (unknown) Hypochromasia 3+ (units (unknown) date) H unknown) (unknown) (no (unknown) (unknown) Hypochromasia (units ( unknown) date) unknown) (unknown) (no (unknown) (unknown) Hypotension -most (units (unknown) date) likely secondary unknown) to hypovolemia due to GI bleed -continue (unknown) (no (unknown) (unknown) I spent a total (units (unknown) date) of [] minutes of unknown) critical care time on this patient's care (unknown) (no (unknown) (unknown) INR 1.6 H (units (unkn own) date) unknown) (unknown) (no (unknown) (unknown) INR (units (unkno wn) date) unknown) (unknown) (no (unknown) (unknown) IV for GI (units (unkn own) date) prophylaxis unknown) (unknown) (no (unknown) (unknown) Impetigo (units (unkno wn) date) unknown) (unknown) (no (unknown) (unknown) Incontinence (units (u nknown) date) unknown) (unknown) (no (unknown) (unknown) [facility] (units (unknown) date) [address] unknown) [place] [address] (unknown) (no (unknown) (unknown) Laboratory (units (unk nown) date) Results - last unknown) hr (unknown) (no (unknown) (unknown) Labs (units (unkno wn) date) unknown) (unknown) (no (unknown) (unknown) Labs: (units (unkno wn) date) unknown) (unknown) (no (unknown) (unknown) Lymph # (Auto) (units (unknown) date) 1700 unknown) (unknown) (no (unknown) (unknown) Lymph # (Auto) (units (unknown) date) unknown) (unknown) (no (unknown) (unknown) Lymph % (Auto) (units (unknown) date) 14.7 L unknown) (unknown) (no (unknown) (unknown) Lymph % (Auto) (units (unknown) date) unknown) (unknown) (no (unknown) (unknown) MCH 23.0 L (units (unk nown) date) unknown) (unknown) (no (unknown) (unknown) MCH (units (unkno wn) date) unknown) (unknown) (no (unknown) (unknown) MCHC 30.3 (units (unkn own) date) unknown) (unknown) (no (unknown) (unknown) MCHC (units (unkno wn) date) unknown) (unknown) (no (unknown) (unknown) MCV 75.9 L (units (unk nown) date) unknown) (unknown) (no (unknown) (unknown) MCV (units (unkno wn) date) unknown) (unknown) (no (unknown) (unknown) Medical History (units (unknown) date) (Reviewed 01/21/22 unknown) @ 21:03 by Benito Siomn MD) (unknown) (no (unknown) (unknown) Medication (units (unk nown) date) Instructions unknown) Recorded Confirmed Type (unknown) (no (unknown) (unknown) Meds (units (unkno wn) date) unknown) (unknown) (no (unknown) (unknown) Lyon # (Auto) (units ( unknown) date) 1100 H unknown) (unknown) (no (unknown) (unknown) Lyon # (Auto) (units ( unknown) date) unknown) (unknown) (no (unknown) (unknown) Lyon % (Auto) 9.7 (units (unknown) date) unknown) (unknown) (no (unknown) (unknown) Lyon % (Auto) (units ( unknown) date) unknown) (unknown) (no (unknown) (unknown) Morbid obesity (units (unknown) date) due to excess unknown) calories (unknown) (no (unknown) (unknown) Morbidly obese (units (unknown) date) female, looks unknown) comfortable, lying in the bed, able to make a (unknown) (no (unknown) (unknown) Mother (units (unknown) date) CVA (cerebral unknown) vascular accident) (unknown) (no (unknown) (unknown) NT-Pro-B (units (unkno wn) date) Natriuret Pep 637 unknown) H (unknown) (no (unknown) (unknown) NT-Pro-B (units (unkno wn) date) Natriuret Pep unknown) (unknown) (no (unknown) (unknown) Narrative (units (unkn own) date) unknown) (unknown) (no (unknown) (unknown) Narrative: (units (unk nown) date) unknown) (unknown) (no (unknown) (unknown) Neut # (Auto) (units ( unknown) date) 8600 H unknown) (unknown) (no (unknown) (unknown) Neut # (Auto) (units ( unknown) date) unknown) (unknown) (no (unknown) (unknown) Neut % (Auto) (units ( unknown) date) 74.9 unknown) (unknown) (no (unknown) (unknown) Neut % (Auto) (units ( unknown) date) unknown) (unknown) (no (unknown) (unknown) 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 pulmonary hypertension -stable (unknown) (no (unknown) (unknown) Objective (units (unkn own) date) unknown) (unknown) (no (unknown) (unknown) Oxygen Delivery (units (unknown) date) Method Nasal unknown) Cannula (unknown) (no (unknown) (unknown) Oxygen Delivery (units (unknown) date) Method Room Air unknown) Nasal Cannula Nasal Cannula (unknown) (no (unknown) (unknown) Oxygen Delivery (units (unknown) date) Method Room Air unknown) Nasal Cannula (unknown) (no (unknown) (unknown) Oxygen Delivery (units (unknown) date) Method Room Air unknown) Room Air (unknown) (no (unknown) (unknown) Oxygen Delivery (units (unknown) date) Method Room Air unknown) (unknown) (no (unknown) (unknown) Oxygen Delivery (units (unknown) date) Method unknown) (unknown) (no (unknown) (unknown) Oxygen Flow Rate (units (unknown) date) 2.5 unknown) (unknown) (no (unknown) (unknown) Oxygen Flow Rate (units (unknown) date) 4 unknown) (unknown) (no (unknown) (unknown) Oxygen Flow Rate (units (unknown) date) unknown) (unknown) (no (unknown) (unknown) PT 18.6 H (units (unkn own) date) unknown) (unknown) (no (unknown) (unknown) PT (units (unkno wn) date) unknown) (unknown) (no (unknown) (unknown) Patient History (units (unknown) date) unknown) (unknown) (no (unknown) (unknown) Patient is full (units (unknown) date) code unknown) (unknown) (no (unknown) (unknown) Patient lives (units ( unknown) date) with her son, has unknown) a very good support from family. (unknown) (no (unknown) (unknown) Patient: (units (unkno wn) date) Rosalba Pabon MR#: unknown) [id number] (unknown) (no (unknown) (unknown) Plt Count 331 (units ( unknown) date) unknown) (unknown) (no (unknown) (unknown) Plt Count (units (unkn own) date) unknown) (unknown) (no (unknown) (unknown) Poikilocytosis 1+ (units (unknown) date) H unknown) (unknown) (no (unknown) (unknown) Poikilocytosis (units (unknown) date) unknown) (unknown) (no (unknown) (unknown) Polychromasia 1+ (units (unknown) date) H unknown) (unknown) (no (unknown) (unknown) Polychromasia (units ( unknown) date) unknown) (unknown) (no (unknown) (unknown) Potassium 3.6 (units ( unknown) date) unknown) (unknown) (no (unknown) (unknown) Potassium (units (unkn own) date) unknown) (unknown) (no (unknown) (unknown) Provider: (units (unkn own) date) Kurt Simon unknown) avila STEVENSON (unknown) (no (unknown) (unknown) Pulmonary (units (unkn own) date) hypertension unknown) (unknown) (no (unknown) (unknown) Pulse Oximetry (units (unknown) date) 100 99 unknown) (unknown) (no (unknown) (unknown) Pulse Oximetry 88 (units (unknown) date) L 93 unknown) (unknown) (no (unknown) (unknown) Pulse Oximetry 93 (units (unknown) date) 94 unknown) (unknown) (no (unknown) (unknown) Pulse Oximetry 94 (units (unknown) date) unknown) (unknown) (no (unknown) (unknown) Pulse Oximetry 96 (units (unknown) date) 99 94 unknown) (unknown) (no (unknown) (unknown) Pulse Oximetry 98 (units (unknown) date) 92 unknown) (unknown) (no (unknown) (unknown) Pulse Oximetry (units (unknown) date) unknown) (unknown) (no (unknown) (unknown) Pulse Rate 105 H (units (unknown) date) 106 H 110 H unknown) (unknown) (no (unknown) (unknown) Pulse Rate 108 H (units (unknown) date) 119 H unknown) (unknown) (no (unknown) (unknown) Pulse Rate 108 H (units (unknown) date) unknown) (unknown) (no (unknown) (unknown) Pulse Rate 109 H (units (unknown) date) 112 H 111 H unknown) (unknown) (no (unknown) (unknown) Pulse Rate 109 H (units (unknown) date) 112 H unknown) (unknown) (no (unknown) (unknown) Pulse Rate 110 H (units (unknown) date) 114 H unknown) (unknown) (no (unknown) (unknown) Pulse Rate 111 H (units (unknown) date) 110 H unknown) (unknown) (no (unknown) (unknown) Pulse Rate 115 H (units (unknown) date) 83 84 unknown) (unknown) (no (unknown) (unknown) Pulse Rate 118 H (units (unknown) date) 107 H unknown) (unknown) (no (unknown) (unknown) Pulse Rate (units (unk nown) date) unknown) (unknown) (no (unknown) (unknown) Qualified (units (unkn own) date) Code(s): J42 - unknown) Unspecified chronic bronchitis (unknown) (no (unknown) (unknown) Qualifiers: (units (un known) date) unknown) (unknown) (no (unknown) (unknown) RBC 1.68 L (units (unk nown) date) unknown) (unknown) (no (unknown) (unknown) RBC Morphology (units (unknown) date) Not Reportable unknown) (unknown) (no (unknown) (unknown) RBC Morphology (units (unknown) date) unknown) (unknown) (no (unknown) (unknown) RBC (units (unkno wn) date) unknown) (unknown) (no (unknown) (unknown) RDW 21.9 H (units (unk nown) date) unknown) (unknown) (no (unknown) (unknown) RDW (units (unkno wn) date) unknown) (unknown) (no (unknown) (unknown) Respiratory Rate (units (unknown) date) 18 18 28 H unknown) (unknown) (no (unknown) (unknown) Respiratory Rate (units (unknown) date) 18 18 unknown) (unknown) (no (unknown) (unknown) Respiratory Rate (units (unknown) date) 18 25 H 27 H unknown) (unknown) (no (unknown) (unknown) Respiratory Rate (units (unknown) date) 22 unknown) (unknown) (no (unknown) (unknown) Respiratory Rate (units (unknown) date) 23 26 H unknown) (unknown) (no (unknown) (unknown) Respiratory Rate (units (unknown) date) 25 H 28 H unknown) (unknown) (no (unknown) (unknown) Respiratory Rate (units (unknown) date) 26 H 30 H unknown) (unknown) (no (unknown) (unknown) Respiratory Rate (units (unknown) date) 28 H unknown) (unknown) (no (unknown) (unknown) Respiratory Rate (units (unknown) date) 34 H 22 22 unknown) (unknown) (no (unknown) (unknown) Respiratory Rate (units (unknown) date) unknown) (unknown) (no (unknown) (unknown) Restless leg (units (u nknown) date) syndrome unknown) (unknown) (no (unknown) (unknown) Result Diagrams: (units (unknown) date) unknown) (unknown) (no (unknown) (unknown) Review of Systems (units (unknown) date) unknown) (unknown) (no (unknown) (unknown) Right-sided low (units (unknown) date) back pain with unknown) sciatica (unknown) (no (unknown) (unknown) Rx (units (unkno wn) date) unknown) (unknown) (no (unknown) (unknown) SARS-CoV-2 (PCR) (units (unknown) date) Negative unknown) (unknown) (no (unknown) (unknown) SARS-CoV-2 (PCR) (units (unknown) date) unknown) (unknown) (no (unknown) (unknown) Safety + (units (unkno wn) date) Behavioral: unknown) (unknown) (no (unknown) (unknown) Signed (units (unkno wn) date) By:<Electronically unknown) signed by Benito Simon MD> (unknown) (no (unknown) (unknown) Smoking Status (units (unknown) date) Current every day unknown) smoker (unknown) (no (unknown) (unknown) Sodium 135 L (units (u nknown) date) unknown) (unknown) (no (unknown) (unknown) Sodium (units (unkno wn) date) unknown) (unknown) (no (unknown) (unknown) Staph skin (units (unk nown) date) infection unknown) (unknown) (no (unknown) (unknown) Status: Acute (units ( unknown) date) unknown) (unknown) (no (unknown) (unknown) Substance Use (units ( unknown) date) Type does not use unknown) (unknown) (no (unknown) (unknown) Surgical History (units (unknown) date) (Reviewed 01/21/22 unknown) @ 21:03 by Benito Simon MD) (unknown) (no (unknown) (unknown) Tachycardia (units (un known) date) unknown) (unknown) (no (unknown) (unknown) Temperature 97.5 (units (unknown) date) F L 98.1 F unknown) (unknown) (no (unknown) (unknown) Temperature 97.7 (units (unknown) date) F 98.7 F unknown) (unknown) (no (unknown) (unknown) Temperature 99.0 (units (unknown) date) F 99.0 F unknown) (unknown) (no (unknown) (unknown) Temperature (units (un known) date) unknown) (unknown) (no (unknown) (unknown) This is a (units (unkn own) date) 56-year-old female unknown) with history of pulmonary hypertension, COPD, CHF, (unknown) (no (unknown) (unknown) Time Spent With (units (unknown) date) Patient unknown) (unknown) (no (unknown) (unknown) Tobacco + (units (unkn own) date) Substance use: unknown) (unknown) (no (unknown) (unknown) Total Bilirubin (units (unknown) date) 0.4 unknown) (unknown) (no (unknown) (unknown) Total Bilirubin (units (unknown) date) unknown) (unknown) (no (unknown) (unknown) Total Creatine (units (unknown) date) Kinase 41 unknown) (unknown) (no (unknown) (unknown) Total Creatine (units (unknown) date) Kinase unknown) (unknown) (no (unknown) (unknown) Total Protein 5.4 (units (unknown) date) L unknown) (unknown) (no (unknown) (unknown) Total Protein (units ( unknown) date) unknown) (unknown) (no (unknown) (unknown) Troponin I < (units (u nknown) date) 0.012 unknown) (unknown) (no (unknown) (unknown) Troponin I (units (unk nown) date) unknown) (unknown) (no (unknown) (unknown) Vital Signs (units (un known) date) unknown) (unknown) (no (unknown) (unknown) WBC 11.5 H (units (unk nown) date) unknown) (unknown) (no (unknown) (unknown) WBC (units (unkno wn) date) unknown) (unknown) (no (unknown) (unknown) [Embedded Image (units (unknown) date) Not Available] unknown) (unknown) (no (unknown) (unknown) [From NASONEX] (units (unknown) date) unknown) (unknown) (no (unknown) (unknown) aerosol inhaler (units (unknown) date) (Ventolin HFA) unknown) shortness of breath or wheezing (unknown) (no (unknown) (unknown) albuterol sulfate (units (unknown) date) 90 mcg/actuation 1 unknown) puff inhalation Q6H PRN 11/14/21 01/21/22 (unknown) (no (unknown) (unknown) alcohol intake (units (unknown) date) current unknown) (unknown) (no (unknown) (unknown) alcohol intake (units (unknown) date) frequency 3 or unknown) more drinks per day (unknown) (no (unknown) (unknown) amlodipine 5 mg (units (unknown) date) tablet 5 mg PO BID unknown) 01/02/22 01/21/22 History (unknown) (no (unknown) (unknown) angustifolia) (units ( unknown) date) sinus unknown) (unknown) (no (unknown) (unknown) atrial (units (unkno wn) date) fibrillation on unknown) Xarelto with complaint of coffee-ground emesis and (unknown) (no (unknown) (unknown) breath.? She had (units (unknown) date) nausea and unknown) vomiting she states she is thrown up 5 times since (unknown) (no (unknown) (unknown) breathe (units (unkno wn) date) unknown) (unknown) (no (unknown) (unknown) breathing (units (unkn own) date) unknown) (unknown) (no (unknown) (unknown) cannot (units (unkno wn) date) unknown) (unknown) (no (unknown) (unknown) clobetasol 0.05 % (units (unknown) date) scalp solution 1 unknown) applic topical BEDTIME #25 mL 03/03/21 (unknown) (no (unknown) (unknown) close monitoring (units (unknown) date) unknown) (unknown) (no (unknown) (unknown) closes, (units (unkno wn) date) unknown) (unknown) (no (unknown) (unknown) complete (units (unkno wn) date) hysterectomy, she unknown) is supposed to be seen for EGD and colonoscopy.? She (unknown) (no (unknown) (unknown) congestion (units (unk nown) date) unknown) (unknown) (no (unknown) (unknown) does still smoke, (units (unknown) date) she drinks 2-3 unknown) white claws daily, no illicit.? She is been (unknown) (no (unknown) (unknown) epigastric (units (unk nown) date) palpation, no unknown) organomegaly. Lung exam positive for rhonchi and (unknown) (no (unknown) (unknown) eyes, (units (unkno wn) date) cardiovascular, unknown) respiratory, neuro, psych, skin examination done, negative (unknown) (no (unknown) (unknown) generalized (units (un known) date) weakness when I unknown) saw her, some abdominal discomfort but in general (unknown) (no (unknown) (unknown) grass pollen (units (u nknown) date) Allergy sinus unknown) Verified 01/02/22 13:27 (unknown) (no (unknown) (unknown) has resolved when (units (unknown) date) she is not unknown) exerting herself as well as feels actively short of (unknown) (no (unknown) (unknown) lavender (units (unkno wn) date) (Lavandula Allergy unknown) severe Verified 01/02/22 13:27 (unknown) (no (unknown) (unknown) melanotic stools (units (unknown) date) since Wednesday or unknown) Wednesday the 18 of January.? Patient also notes (unknown) (no (unknown) (unknown) metoprolol (units (unk nown) date) succinate 50 mg 50 unknown) mg PO BID #180 tabs 01/02/22 01/21/22 Rx (unknown) (no (unknown) (unknown) mometasone (units (unk nown) date) furoate Allergy unknown) Unknown Verified 01/02/22 13:27 (unknown) (no (unknown) (unknown) monitoring (units (unk nown) date) required given unknown) history of heart failure, surgery consulted, EGD in (unknown) (no (unknown) (unknown) not felt well she (units (unknown) date) is felt unknown) increasingly fatigued lightheaded like she is going to (unknown) (no (unknown) (unknown) noted. Nonpitting (units (unknown) date) pedal edema in unknown) both extremities. Constitutional, HEENT, (unknown) (no (unknown) (unknown) other than as (units ( unknown) date) mentioned above. unknown) (unknown) (no (unknown) (unknown) pass out she has (units (unknown) date) not had actual unknown) syncope, she has had some chest pressure which (unknown) (no (unknown) (unknown) pine tanya Allergy (units (unknown) date) Severe throat unknown) Uncoded 01/02/22 13:27 (unknown) (no (unknown) (unknown) pramipexole 0.25 (units (unknown) date) mg tablet 0.25 mg unknown) PO BEDTIME #90 tabs 01/02/22 01/21/22 Rx (unknown) (no (unknown) (unknown) reasonable (units (unk nown) date) conversation, unknown) follows commands. Mild abdominal discomfort in (unknown) (no (unknown) (unknown) release 24 hr (units ( unknown) date) (Detrol LA) unknown) (unknown) (no (unknown) (unknown) required (units (unkno wn) date) unknown) (unknown) (no (unknown) (unknown) rivaroxaban 20 mg (units (unknown) date) tablet (Xarelto) unknown) 20 mg PO DAILY 01/21/22 01/21/22 History (unknown) (no (unknown) (unknown) secondary to (units (u nknown) date) NSAID use -admit unknown) to ICU, close monitoring, 4 units of PRBC, close (unknown) (no (unknown) (unknown) seems to be (units (un known) date) comfortable. unknown) (unknown) (no (unknown) (unknown) she was having (units (unknown) date) episodes at least unknown) a couple weeks ago.? Patient has noted she has (unknown) (no (unknown) (unknown) since Wednesday.? (units (unknown) date) Patient denies any unknown) swelling of extremities.? She is had a prior (unknown) (no (unknown) (unknown) spironolactone 25 (units (unknown) date) mg tablet 25 mg PO unknown) DAILY 03/03/21 01/21/22 History (unknown) (no (unknown) (unknown) swelling, (units (unkn own) date) unknown) (unknown) (no (unknown) (unknown) tablet,extended (units (unknown) date) release 24 hr unknown) (unknown) (no (unknown) (unknown) taking ibuprofen (units (unknown) date) 8 tablets of 200 unknown) mg ibuprofen. Patient continues to have some (unknown) (no (unknown) (unknown) the morning, (units (u nknown) date) continues H+H unknown) monitoring. (unknown) (no (unknown) (unknown) tiotropium (units (unk nown) date) bromide 18 mcg unknown) capsule 1 cap inhalation DAILY #90 10/28/20 01/21/22 (unknown) (no (unknown) (unknown) to son but (units (unk nown) date) requested not to unknown) call him tonight, call only if any emergency (unknown) (no (unknown) (unknown) today; this time (units (unknown) date) is exclusive of unknown) procedural time. (unknown) (no (unknown) (unknown) tolterodine 2 mg (units (unknown) date) capsule,extended 2 unknown) mg PO BEDTIME #90 caps 01/02/22 01/21/22 Rx (unknown) (no (unknown) (unknown) trouble (units (unkno wn) date) unknown) (unknown) (no (unknown) (unknown) wheeze on the (units (u nknown) date) right anterior unknown) lung kennedy, overall air entry poor, basal crackles (unknown) (no (unknown) (unknown) with HandiHaler) (units (unknown) date) unknown) (unknown) (no (unknown) (unknown) with inhalation (units (unknown) date) device (Spiriva unknown) inhalations Result panel 30 (unknown) (no date) (unknown) (unknown) 18.1 % (unkn own) (unknown) (no date) (unknown) (unknown) 18.1 % (unkn own) (unknown) (no date) (unknown) (unknown) 5.8 g/dl (unkn own) (unknown) (no date) (unknown) (unknown) 5.8 g/dl (unkn own) Result panel 31 (unknown) (no date) (unknown) (unknown) TRANSFUSED (units (un known) PRODUCT: Packed unknown) Cells COUNT: 2 Result panel 32 (unknown) (no date) (unknown) (unknown) TRANSFUSED (units (un known) PRODUCT: Packed unknown) Cells COUNT: 2 Result panel 33 (unknown) (no date) (unknown) (unknown) Positive for (units ( unknown) MRSA unknown) (unknown) (no date) (unknown) (unknown) Positive for (units ( unknown) MRSA unknown) Result panel 34 (unknown) (no date) (unknown) (unknown) TRANSFUSED (units (un known) PRODUCT: Packed unknown) Cells COUNT: 2 Result panel 35 (unknown) (no date) (unknown) (unknown) TRANSFUSED (units (un known) PRODUCT: Packed unknown) Cells COUNT: 3 Result panel 36 (unknown) (no date) (unknown) (unknown) TRANSFUSED (units (un known) PRODUCT: Packed unknown) Cells COUNT: 3 Result panel 37 (unknown) (no date) (unknown) (unknown) TRANSFUSED (units (un known) PRODUCT: Packed unknown) Cells COUNT: 3 Result panel 38 (unknown) (no date) (unknown) (unknown) TRANSFUSED (units (un known) PRODUCT: Packed unknown) Cells COUNT: 3 Result panel 39 (unknown) (no date) (unknown) (unknown) TRANSFUSED (units (un known) PRODUCT: Packed unknown) Cells COUNT: 3 Result panel 40 (unknown) (no date) (unknown) (unknown) TRANSFUSED (units (un known) PRODUCT: Packed unknown) Cells COUNT: 3 Result panel 41 (unknown) (no date) (unknown) (unknown) NEGATIVE (units (unkn own) unknown) (unknown) (no date) (unknown) (unknown) O Negative (units (un known) unknown) (unknown) (no date) (unknown) (unknown) O Negative (units (un known) unknown) (unknown) (no date) (unknown) (unknown) TRANSFUSED (units (un known) PRODUCT: Packed unknown) Cells COUNT: 4 Result panel 42 (unknown) (no date) (unknown) (unknown) NEGATIVE (units (unkn own) unknown) (unknown) (no date) (unknown) (unknown) O Negative (units (un known) unknown) (unknown) (no date) (unknown) (unknown) O Negative (units (un known) unknown) (unknown) (no date) (unknown) (unknown) TRANSFUSED (units (un known) PRODUCT: Packed unknown) Cells COUNT: 4 Result panel 43 (unknown) (no date) (unknown) (unknown) NEGATIVE (units (unkn own) unknown) (unknown) (no date) (unknown) (unknown) O Negative (units (un known) unknown) (unknown) (no date) (unknown) (unknown) O Negative (units (un known) unknown) (unknown) (no date) (unknown) (unknown) TRANSFUSED (units (un known) PRODUCT: Packed unknown) Cells COUNT: 4 Result panel 44 (unknown) (no date) (unknown) (unknown) 0 /ul (unkn own) (unknown) (no date) (unknown) (unknown) 0.2 % (unkn own) (unknown) (no date) (unknown) (unknown) 0.6 % (unkn own) (unknown) (no date) (unknown) (unknown) 100 /ul (unkn own) (unknown) (no date) (unknown) (unknown) 11.2 x10 3/ul (unkn own) (unknown) (no date) (unknown) (unknown) 14.9 % (unkn own) (unknown) (no date) (unknown) (unknown) 15.4 % (unkn own) (unknown) (no date) (unknown) (unknown) 1700 /ul (unkn own) (unknown) (no date) (unknown) (unknown) 1700 /ul (unkn own) (unknown) (no date) (unknown) (unknown) 2.96 x10 6/ul (unkn own) (unknown) (no date) (unknown) (unknown) 21.4 % (unkn own) (unknown) (no date) (unknown) (unknown) 23.7 % (unkn own) (unknown) (no date) (unknown) (unknown) 23.7 % (unkn own) (unknown) (no date) (unknown) (unknown) 26.3 pg (unkn own) (unknown) (no date) (unknown) (unknown) 274 x10 3/ul (unkn own) (unknown) (no date) (unknown) (unknown) 32.8 % (unkn own) (unknown) (no date) (unknown) (unknown) 68.9 % (unkn own) (unknown) (no date) (unknown) (unknown) 7.8 g/dl (unkn own) (unknown) (no date) (unknown) (unknown) 7700 /ul (unkn own) (unknown) (no date) (unknown) (unknown) 80.2 fl (unkn own) (unknown) (no date) (unknown) (unknown) 80.2 fl (unkn own) Result panel 45 (unknown) (no date) (unknown) (unknown) > 60 ml/min (unkn own) (unknown) (no date) (unknown) (unknown) > 60 ml/min (unkn own) (unknown) (no date) (unknown) (unknown) 0.84 mg/dl (unkn own) (unknown) (no date) (unknown) (unknown) 1.7 mg/dl (unkn own) (unknown) (no date) (unknown) (unknown) 122 mg/dl (unkn own) (unknown) (no date) (unknown) (unknown) 122 mg/dl (unkn own) (unknown) (no date) (unknown) (unknown) 137 mmol/l (unkn own) (unknown) (no date) (unknown) (unknown) 26 mg/dl (unkn own) (unknown) (no date) (unknown) (unknown) 3.0 mmol/l (unkn own) (unknown) (no date) (unknown) (unknown) 31.0 (units unknown) (unknown) (unknown) (no date) (unknown) (unknown) 36 mmol/l (unkn own) (unknown) (no date) (unknown) (unknown) 7.6 mg/dl (unkn own) (unknown) (no date) (unknown) (unknown) 94 mmol/l (unkn own) Result panel 46 (unknown) (no date) (unknown) (unknown) > 60 ml/min (unkn own) (unknown) (no date) (unknown) (unknown) > 60 ml/min (unkn own) (unknown) (no date) (unknown) (unknown) 0 /ul (unkn own) (unknown) (no date) (unknown) (unknown) 0.1 % (unkn own) (unknown) (no date) (unknown) (unknown) 0.4 mg/dl (unkn own) (unknown) (no date) (unknown) (unknown) 0.6 % (unkn own) (unknown) (no date) (unknown) (unknown) 0.78 mg/dl (unkn own) (unknown) (no date) (unknown) (unknown) 1 (units (unkn own) unknown) (unknown) (no date) (unknown) (unknown) 1.2 (units (unkn own) unknown) (unknown) (no date) (unknown) (unknown) 1.6 (units (unkn own) unknown) (unknown) (no date) (unknown) (unknown) 1.68 x10 6/ul (unkn own) (unknown) (no date) (unknown) (unknown) 100 /ul (unkn own) (unknown) (no date) (unknown) (unknown) 100 mmol/l (unkn own) (unknown) (no date) (unknown) (unknown) 11.5 x10 3/ul (unkn own) (unknown) (no date) (unknown) (unknown) 1100 /ul (unkn own) (unknown) (no date) (unknown) (unknown) 113 mg/dl (unkn own) (unknown) (no date) (unknown) (unknown) 113 mg/dl (unkn own) (unknown) (no date) (unknown) (unknown) 12.8 % (unkn own) (unknown) (no date) (unknown) (unknown) 12.8 % (unkn own) (unknown) (no date) (unknown) (unknown) 135 mmol/l (unkn own) (unknown) (no date) (unknown) (unknown) 14 iu/l (unkn own) (unknown) (no date) (unknown) (unknown) 14.7 % (unkn own) (unknown) (no date) (unknown) (unknown) 1700 /ul (unkn own) (unknown) (no date) (unknown) (unknown) 18.6 seconds (unkn own) (unknown) (no date) (unknown) (unknown) 2 (units (unkn own) unknown) (unknown) (no date) (unknown) (unknown) 2.5 g/dl (unkn own) (unknown) (no date) (unknown) (unknown) 2.9 g/dl (unkn own) (unknown) (no date) (unknown) (unknown) 21.9 % (unkn own) (unknown) (no date) (unknown) (unknown) 23.0 pg (unkn own) (unknown) (no date) (unknown) (unknown) 25 seconds (unkn own) (unknown) (no date) (unknown) (unknown) 25 seconds (unkn own) (unknown) (no date) (unknown) (unknown) 28 mmol/l (unkn own) (unknown) (no date) (unknown) (unknown) 3 (units (unkn own) unknown) (unknown) (no date) (unknown) (unknown) 3.6 mmol/l (unkn own) (unknown) (no date) (unknown) (unknown) 3.9 g/dl (unkn own) (unknown) (no date) (unknown) (unknown) 3.9 g/dl (unkn own) (unknown) (no date) (unknown) (unknown) 30.3 % (unkn own) (unknown) (no date) (unknown) (unknown) 331 x10 3/ul (unkn own) (unknown) (no date) (unknown) (unknown) 37 mg/dl (unkn own) (unknown) (no date) (unknown) (unknown) 39 u/l (unkn own) (unknown) (no date) (unknown) (unknown) 45 iu/l (unkn own) (unknown) (no date) (unknown) (unknown) 47.4 (units (unkn own) unknown) (unknown) (no date) (unknown) (unknown) 5.4 g/dl (unkn own) (unknown) (no date) (unknown) (unknown) 7.9 mg/dl (unkn own) (unknown) (no date) (unknown) (unknown) 74.9 % (unkn own) (unknown) (no date) (unknown) (unknown) 75.9 fl (unkn own) (unknown) (no date) (unknown) (unknown) 8600 /ul (unkn own) (unknown) (no date) (unknown) (unknown) 9.7 % (unkn own) (unknown) (no date) (unknown) (unknown) TRANSFUSED (units (un known) PRODUCT: Packed unknown) Cells COUNT: 4 Result panel 47 (unknown) (no date) (unknown) (unknown) TRANSFUSED (units (un known) PRODUCT: Packed unknown) Cells COUNT: 4 Result panel 48 (unknown) (no date) (unknown) (unknown) TRANSFUSED (units (un known) PRODUCT: Packed unknown) Cells COUNT: 4 Result panel 49 (unknown) (no date) (unknown) (unknown) 0 /ul (unkn own) (unknown) (no date) (unknown) (unknown) 0.2 % (unkn own) (unknown) (no date) (unknown) (unknown) 0.6 % (unkn own) (unknown) (no date) (unknown) (unknown) 1 (units (unkn own) unknown) (unknown) (no date) (unknown) (unknown) 1 (units (unkn own) unknown) (unknown) (no date) (unknown) (unknown) 100 /ul (unkn own) (unknown) (no date) (unknown) (unknown) 11.2 x10 3/ul (unkn own) (unknown) (no date) (unknown) (unknown) 14.9 % (unkn own) (unknown) (no date) (unknown) (unknown) 15.4 % (unkn own) (unknown) (no date) (unknown) (unknown) 1700 /ul (unkn own) (unknown) (no date) (unknown) (unknown) 1700 /ul (unkn own) (unknown) (no date) (unknown) (unknown) 2 (units (unkn own) unknown) (unknown) (no date) (unknown) (unknown) 2.96 x10 6/ul (unkn own) (unknown) (no date) (unknown) (unknown) 21.4 % (unkn own) (unknown) (no date) (unknown) (unknown) 23.7 % (unkn own) (unknown) (no date) (unknown) (unknown) 23.7 % (unkn own) (unknown) (no date) (unknown) (unknown) 26.3 pg (unkn own) (unknown) (no date) (unknown) (unknown) 274 x10 3/ul (unkn own) (unknown) (no date) (unknown) (unknown) 3 #/diff (unkn own) (unknown) (no date) (unknown) (unknown) 32.8 % (unkn own) (unknown) (no date) (unknown) (unknown) 68.9 % (unkn own) (unknown) (no date) (unknown) (unknown) 7.8 g/dl (unkn own) (unknown) (no date) (unknown) (unknown) 7700 /ul (unkn own) (unknown) (no date) (unknown) (unknown) 80.2 fl (unkn own) (unknown) (no date) (unknown) (unknown) 80.2 fl (unkn own) (unknown) (no date) (unknown) (unknown) See Below (units (unk nown) unknown) Result panel 50 (unknown) (no date) (unknown) (unknown) TRANSFUSED (units (un known) PRODUCT: Packed unknown) Cells COUNT: 4 Result panel 51 (unknown) (no date) (unknown) (unknown) (no value) (units (un known) unknown) (unknown) (no date) (unknown) (unknown) 01/22/22 0753 (units (unknown) unknown) (unknown) (no date) (unknown) (unknown) [id number] (units (unkn own) unknown) (unknown) (no date) (unknown) (unknown) Age/Sex: 56 / (units (unknown) F unknown) (unknown) (no date) (unknown) (unknown) Call Coverage (units (unknown) Note unknown) (unknown) (no date) (unknown) (unknown) : (units (unkn own) 1965 unknown) Acct:[id number] (unknown) (no date) (unknown) (unknown) Date of (units (unkn own) Patient unknown) Contact: 01/22/22 (unknown) (no date) (unknown) (unknown) Date of (units (unkn own) Service: unknown) 01/21/22 (unknown) (no date) (unknown) (unknown) EGD and (units (unkn own) colonoscopy unknown) planned for Wednesday/tomorrow . Bowel prep today. (unknown) (no date) (unknown) (unknown) [place] (units (unkn own) [facility] [address] unknown) [address] [place] [phone] (unknown) (no date) (unknown) (unknown) Narrative of (units ( unknown) Care Provided: unknown) (unknown) (no date) (unknown) (unknown) Note (units (unkn own) unknown) (unknown) (no date) (unknown) (unknown) Patient: (units (unkn own) Rosalba Pabon unknown) MR#: [id number] (unknown) (no date) (unknown) (unknown) Provider: (units (unk nown) Jasmeet Clancy unknown) cynthia STEVENSON (unknown) (no date) (unknown) (unknown) Signed (units (unkn own) By:<Electronica unknown) lly signed by Anne-Marie Clancy MD> Result panel 52 (unknown) (no date) (unknown) (unknown) TRANSFUSED (units (un known) PRODUCT: Packed unknown) Cells COUNT: 5 Result panel 53 (unknown) (no date) (unknown) (unknown) TRANSFUSED (units (un known) PRODUCT: Packed unknown) Cells COUNT: 5 Result panel 54 (unknown) (no (unknown) (unknown) (no value) (units (unk nown) date) unknown) (unknown) (no (unknown) (unknown) +---------+ (units (un known) date) [phone] +--------- unknown) (unknown) (no (unknown) (unknown) +---------+ (units (un known) date) Hospital +--------- unknown) (unknown) (no (unknown) (unknown) + (units (unknown) date) unknown) --- (unknown) (no (unknown) (unknown) [id number] (units (unkno wn) date) unknown) (unknown) (no (unknown) (unknown) 1) Moderately (units ( unknown) date) increased left unknown) ventricular thickness (concentric) with normal (unknown) (no (unknown) (unknown) 01/22/22 (units (unkno wn) date) unknown) (unknown) (no (unknown) (unknown) [address] [place] [address] (units (unknown) date) unknown) (unknown) (no (unknown) (unknown) 2) The (units (unkno wn) date) interventricular unknown) septum is flattened, consistent with a right (unknown) (no (unknown) (unknown) 3) The right (units (u nknown) date) ventricle is not unknown) well visualized. Grossly, right ventricle with (unknown) (no (unknown) (unknown) 4) No significant (units (unknown) date) valvular stenosis unknown) or regurgitation. (unknown) (no (unknown) (unknown) 5) Pulmonary (units (u nknown) date) artery pressures unknown) cannot be estimated because of the lack of a (unknown) (no (unknown) (unknown) 6) Compared to the (units (unknown) date) Echo done unknown) 12/04/2020, LVH is more noticeable on today's (unknown) (no (unknown) (unknown) 75-80%. The (units (un known) date) interventricular unknown) septum is flattened, consistent with a right (unknown) (no (unknown) (unknown) : : [address] (units (unknown) date) : : unknown) (unknown) (no (unknown) (unknown) : : [address] : : (units ( unknown) date) unknown) (unknown) (no (unknown) (unknown) : : [place] (units (unknown) date) : : unknown) (unknown) (no (unknown) (unknown) : : Phone: [phone] (units (unknown) date) : unknown) (unknown) (no (unknown) (unknown) :Account #: (units (un known) date) [id number] Gender: unknown) Female BSA: 2.3 m2 : (unknown) (no (unknown) (unknown) :: 1965 (units (unknown) date) Age: 56 yrs BP: unknown) 127/70 mmHg: (unknown) (no (unknown) (unknown) :Hospital MRN #: (units (unknown) date) [id number] unknown) ReadingLocation: Weight: 278 lb : (unknown) (no (unknown) (unknown) :Name: CM, (units ( unknown) date) ROSALBA Negrete Study Date: unknown) 01/22/2022 Height: 67.5 in: (unknown) (no (unknown) (unknown) :Ordering (units (unkn own) date) Physician: LEWIS, unknown) : (unknown) (no (unknown) (unknown) :STEVO ABREU (units (u nknown) date) Performed By: unknown) Giovana Cardenas : (unknown) (no (unknown) (unknown) :Reason For Study: (units (unknown) date) RESPRITORY FAILURE, unknown) SHORTNESS OF BREATH : (unknown) (no (unknown) (unknown) :Referring: (units (un known) date) STEVO LEWIS unknown) : (unknown) (no (unknown) (unknown) sev ratio: 0.61 (units (unknown) date) unknown) (unknown) (no (unknown) (unknown) KOKO indexed to BSA (units (unknown) date) (cm2/m2): 0.94 unknown) (unknown) (no (unknown) (unknown) Accession Number: (units (unknown) date) [id number] unknown) (unknown) (no (unknown) (unknown) Age/Sex: 56 / F (units (unknown) date) Date of Service: unknown) (unknown) (no (unknown) (unknown) [place]units ( unknown) date[place] [address] unknown) (unknown) (no (unknown) (unknown) Ao V2 VTI: 36.5 cm (units (unknown) date) KOKO(V,D): 1.9 cm2 unknown) (unknown) (no (unknown) (unknown) Ao V2 max: 217.4 (units (unknown) date) cm/sec LVOT Max unknown) Royce: 113.3 cm/sec (unknown) (no (unknown) (unknown) Ao V2 mean: 137.3 (units (unknown) date) cm/sec LV V1 max unknown) P.1 mmHg (unknown) (no (unknown) (unknown) Ao max P.9 (units (unknown) date) mmHg LV V1 VTI: unknown) 22.1 cm (unknown) (no (unknown) (unknown) Ao mean P.6 (units (unknown) date) mmHg KOKO(I,D): 2.2 unknown) cm2 (unknown) (no (unknown) (unknown) Aortic Valve: The (units (unknown) date) aortic valve is not unknown) well visualized. The aortic valve (unknown) (no (unknown) (unknown) Atria: The left (units (unknown) date) atrium is severely unknown) dilated. The right atrium is mildly (unknown) (no (unknown) (unknown) : 1965 (units (unknown) date) Acct:[id number] unknown) (unknown) (no (unknown) (unknown) Doppler (units (unkno wn) date) Measurements + unknown) Calculations (unknown) (no (unknown) (unknown) E/E' med: 12.7 (units (unknown) date) unknown) (unknown) (no (unknown) (unknown) Echocardiogram (units (unknown) date) Report unknown) (unknown) (no (unknown) (unknown) Echocardiography (units (unknown) date) Report unknown) (unknown) (no (unknown) (unknown) Electronically (units (unknown) date) signed by: [place] unknown) Kyra Najera on 01/22/2022 (unknown) (no (unknown) (unknown) FS: 39.4 % asc (units (unknown) date) Aorta Diam: 3.5 cm unknown) (unknown) (no (unknown) (unknown) Great Vessels: The (units (unknown) date) aortic root is unknown) normal size. The dimensions of the (unknown) (no (unknown) (unknown) IVSd: 1.6 cm (units (u nknown) date) unknown) (unknown) (no (unknown) (unknown) Interpretation (units (unknown) date) Summary unknown) (unknown) (no (unknown) (unknown) [facility] (units (unknown) date) unknown) (unknown) (no (unknown) (unknown) [place] (units (unkno wn) date) unknown) (unknown) (no (unknown) (unknown) LA A2 area: 31.2 (units (unknown) date) cm2 RA long axis: unknown) 6.5 cm (unknown) (no (unknown) (unknown) LA A4 area: 28.4 (units (unknown) date) cm2 RA area: 27.4 unknown) cm2 (unknown) (no (unknown) (unknown) LA length (vol): (units (unknown) date) 6.4 cm RA vol: 98.1 unknown) ml (unknown) (no (unknown) (unknown) LA vol index: 50.1 (units (unknown) date) ml/m2 IVC diam: 2.0 unknown) cm (unknown) (no (unknown) (unknown) LA vol: 117.3 ml (units (unknown) date) RA : 41.8 ml/m2 unknown) (unknown) (no (unknown) (unknown) LV roa. (units (unkno wn) date) diameter/BSA unknown) (cm/m2): 1.9 (unknown) (no (unknown) (unknown) LV sys. (units (unkno wn) date) diameter/BSA unknown) (cm/m2): 1.1 (unknown) (no (unknown) (unknown) LVIDd: 4.3 cm LVOT (units (unknown) date) diam: 2.1 cm unknown) (unknown) (no (unknown) (unknown) LVIDs: 2.6 cm Ao (units (unknown) date) root diam: 3.3 cm unknown) (unknown) (no (unknown) (unknown) LVPWd: 1.5 cm (units ( unknown) date) unknown) (unknown) (no (unknown) (unknown) Left Ventricle: (units (unknown) date) There is moderate unknown) concentric left ventricular hypertrophy. (unknown) (no (unknown) (unknown) Loc: ICU 227-1 (units (unknown) date) unknown) (unknown) (no (unknown) (unknown) MMode/2D (units (o wn) date) Measurements + unknown) Calculations (unknown) (no (unknown) (unknown) MV A max royce: (units ( unknown) date) 122.3 cm/sec PA V2 unknown) mean: 99.9 cm/sec (unknown) (no (unknown) (unknown) MV E max royce: (units ( unknown) date) 116.5 cm/sec PA V2 unknown) max: 140.3 cm/sec (unknown) (no (unknown) (unknown) MV E/A: 0.95 PA (units (unknown) date) mean P.4 mmHg unknown) (unknown) (no (unknown) (unknown) MV V2 VTI: 31.9 cm (units (unknown) date) unknown) (unknown) (no (unknown) (unknown) MV V2 mean: 100.8 (units (unknown) date) cm/sec SV(LVOT): unknown) 80.2 ml (unknown) (no (unknown) (unknown) MV dec time: 0.28 (units (unknown) date) sec unknown) (unknown) (no (unknown) (unknown) MV mean P.9 (units (unknown) date) mmHg unknown) (unknown) (no (unknown) (unknown) MVA(VTI): 2.5 cm2 (units (unknown) date) unknown) (unknown) (no (unknown) (unknown) Med Peak E' Royce: (units (unknown) date) 9.2 cm/sec unknown) (unknown) (no (unknown) (unknown) Mitral Valve: (units ( unknown) date) There is mild unknown) mitral annular calcification. The mitral valve (unknown) (no (unknown) (unknown) Ordering Provider: (units (unknown) date) Stevo Lewis D.O. unknown) (unknown) (no (unknown) (unknown) Patient: (units (unkno wn) date) Rosalba Pabon MR#: unknown) [id number] (unknown) (no (unknown) (unknown) Pericardium/ (units (u nknown) date) Pleura There is no unknown) pericardial effusion. There is no pleural (unknown) (no (unknown) (unknown) Procedure: A (units (u nknown) date) two-dimensional unknown) transthoracic echocardiogram with color flow (unknown) (no (unknown) (unknown) Procedure: EC echo (units (unknown) date) complete with unknown) contrast (unknown) (no (unknown) (unknown) Pulmonic Valve: (units (unknown) date) The pulmonic valve unknown) is not well visualized. There is a trace (unknown) (no (unknown) (unknown) RVD1 (basal): 4.9 (units (unknown) date) cm unknown) (unknown) (no (unknown) (unknown) RVD2 (mid): 4.0 cm (units (unknown) date) unknown) (unknown) (no (unknown) (unknown) Reading (units (unkno wn) date) Physician:12:29 PM unknown) (unknown) (no (unknown) (unknown) Right Ventricle: (units (unknown) date) The right ventricle unknown) is not well visualized. Grossly, right (unknown) (no (unknown) (unknown) Signed (units (unkno wn) date) unknown) (unknown) (no (unknown) (unknown) TAPSE: 1.6 cm (units ( unknown) date) unknown) (unknown) (no (unknown) (unknown) The left ventricle (units (unknown) date) is normal in size. unknown) The ejection fraction is estimated to be (unknown) (no (unknown) (unknown) There is trace (units (unknown) date) tricuspid unknown) regurgitation. Pulmonary artery pressures cannot be (unknown) (no (unknown) (unknown) Tricuspid Valve: (units (unknown) date) The tricuspid valve unknown) is normal in structure and function. (unknown) (no (unknown) (unknown) (units (unknown) date) unknown) ___ (unknown) (no (unknown) (unknown) and Doppler was (units (unknown) date) performed. The unknown) study quality was technically difficult. A (unknown) (no (unknown) (unknown) ascending aorta (units (unknown) date) are normal. The IVC unknown) is of normal diameter and collapses less (unknown) (no (unknown) (unknown) contrast injection (units (unknown) date) of Definity was unknown) performed to improve assessment of LV (unknown) (no (unknown) (unknown) dilated. (units (unkno wn) date) unknown) (unknown) (no (unknown) (unknown) effusion. (units (unkn own) date) unknown) (unknown) (no (unknown) (unknown) estimated because (units (unknown) date) of the lack of a unknown) measurable TR jet velocity. (unknown) (no (unknown) (unknown) function. (units (unkn own) date) Comparison is made unknown) with the echocardiogram of 12/04/2020. The (unknown) (no (unknown) (unknown) gradient is 4.9 (units (unknown) date) mmHg. There is no unknown) mitral valve stenosis. Elevated gradient (unknown) (no (unknown) (unknown) leaflets appear (units (unknown) date) mildly thickened, unknown) but open well. The mitral valve mean (unknown) (no (unknown) (unknown) measurable TR jet (units (unknown) date) velocity. unknown) (unknown) (no (unknown) (unknown) mildly to (units (unkn own) date) moderately enlarged unknown) with mildly reduced function. (unknown) (no (unknown) (unknown) opens well. There (units (unknown) date) is no aortic valve unknown) stenosis. No aortic regurgitation is (unknown) (no (unknown) (unknown) or physiologic (units (unknown) date) amount of pulmonic unknown) regurgitation. (unknown) (no (unknown) (unknown) patient was in (units (unknown) date) sinus tachycardia unknown) with heart rates between 103-121 bpm during (unknown) (no (unknown) (unknown) possibly due to (units (unknown) date) sinus tachycardia. unknown) There is trace mitral regurgitation. (unknown) (no (unknown) (unknown) present. (units (unkno wn) date) unknown) (unknown) (no (unknown) (unknown) size and (units (unkno wn) date) hyperdynamic unknown) systolc function (EF 75-80%). (unknown) (no (unknown) (unknown) study. (units (unkno wn) date) unknown) (unknown) (no (unknown) (unknown) than 50% with a (units (unknown) date) sniff. This unknown) suggests a right atrial pressure of 8 mm Hg. (unknown) (no (unknown) (unknown) the exam. (units (unkn own) date) unknown) (unknown) (no (unknown) (unknown) ventricle with (units (unknown) date) mildly to unknown) moderately enlarged with mildly reduced function. (unknown) (no (unknown) (unknown) ventricular (units (un known) date) pressure overload unknown) condition. Result panel 55 (unknown) (no (unknown) (unknown) (no value) (units (unk nown) date) unknown) (unknown) (no (unknown) (unknown) (past 8 hours): (units (unknown) date) unknown) (unknown) (no (unknown) (unknown) 01:54 01/22/22 (units (unknown) date) unknown) (unknown) (no (unknown) (unknown) 02:21 01/22/22 (units (unknown) date) unknown) (unknown) (no (unknown) (unknown) 02:37 (units (unkno wn) date) unknown) (unknown) (no (unknown) (unknown) 04:00 (units (unkno wn) date) unknown) (unknown) (no (unknown) (unknown) 04:54 01/22/22 (units (unknown) date) unknown) (unknown) (no (unknown) (unknown) 04:55 01/22/22 (units (unknown) date) unknown) (unknown) (no (unknown) (unknown) 05:55 01/22/22 (units (unknown) date) unknown) (unknown) (no (unknown) (unknown) 06:05 06:05 (units (un known) date) unknown) (unknown) (no (unknown) (unknown) 07:00 (units (unkno wn) date) unknown) (unknown) (no (unknown) (unknown) 07:30 01/22/22 (units (unknown) date) unknown) (unknown) (no (unknown) (unknown) 07:51 (units (unkno wn) date) unknown) (unknown) (no (unknown) (unknown) 08:00 01/22/22 (units (unknown) date) unknown) (unknown) (no (unknown) (unknown) 08:15 01/22/22 (units (unknown) date) unknown) (unknown) (no (unknown) (unknown) 09:00 01/22/22 (units (unknown) date) unknown) (unknown) (no (unknown) (unknown) 09:30 (units (unkno wn) date) unknown) (unknown) (no (unknown) (unknown) 01/21/22 01/21/22 (units (unknown) date) 01/21/22 unknown) (unknown) (no (unknown) (unknown) 01/22/22 06:05 (units (unknown) date) unknown) (unknown) (no (unknown) (unknown) 01/22/22 01/22/22 (units (unknown) date) unknown) (unknown) (no (unknown) (unknown) 01/22/22 (units (unkno wn) date) unknown) (unknown) (no (unknown) (unknown) 14:50 14:50 14:50 (units (unknown) date) unknown) (unknown) (no (unknown) (unknown) 14:50 18:27 21:52 (units (unknown) date) unknown) (unknown) (no (unknown) (unknown) [id number] (units (unkno wn) date) unknown) (unknown) (no (unknown) (unknown) ALT 14 (units (unkno wn) date) unknown) (unknown) (no (unknown) (unknown) ALT (units (unkno wn) date) unknown) (unknown) (no (unknown) (unknown) APTT 25 L (units (unkn own) date) unknown) (unknown) (no (unknown) (unknown) APTT (units (unkno wn) date) unknown) (unknown) (no (unknown) (unknown) AST 45 H (units (unkno wn) date) unknown) (unknown) (no (unknown) (unknown) AST (units (unkno wn) date) unknown) (unknown) (no (unknown) (unknown) Abdomen: S NT ND. (units (unknown) date) unknown) (unknown) (no (unknown) (unknown) Abdominal pain (units (unknown) date) unknown) (unknown) (no (unknown) (unknown) Acute respiratory (units (unknown) date) failure with unknown) Hypoxia (unknown) (no (unknown) (unknown) Acute symptomatic (units (unknown) date) blood loss anemia unknown) most likely related to upper GI bleed (unknown) (no (unknown) (unknown) Age/Sex: 56 / F (units (unknown) date) unknown) (unknown) (no (unknown) (unknown) Albumin 2.9 L (units ( unknown) date) unknown) (unknown) (no (unknown) (unknown) Albumin (units (unkno wn) date) unknown) (unknown) (no (unknown) (unknown) Albumin/Globulin (units (unknown) date) Ratio 1.2 unknown) (unknown) (no (unknown) (unknown) Albumin/Globulin (units (unknown) date) Ratio unknown) (unknown) (no (unknown) (unknown) Alcohol use (units (un known) date) unknown) (unknown) (no (unknown) (unknown) Alkaline (units (unkno wn) date) Phosphatase 39 unknown) (unknown) (no (unknown) (unknown) Alkaline (units (unkno wn) date) Phosphatase unknown) (unknown) (no (unknown) (unknown) Allergic (units (unkno wn) date) dermatitis of unknown) eyelids of both eyes (unknown) (no (unknown) (unknown) Anemia (units (unkno wn) date) unknown) (unknown) (no (unknown) (unknown) Anisocytosis 2+ H (units (unknown) date) unknown) (unknown) (no (unknown) (unknown) Anisocytosis (units (u nknown) date) unknown) (unknown) (no (unknown) (unknown) Antibody Screen (units (unknown) date) Negative unknown) (unknown) (no (unknown) (unknown) Antibody Screen (units (unknown) date) unknown) (unknown) (no (unknown) (unknown) Arthritis (units (unkn own) date) (Unknown) unknown) (unknown) (no (unknown) (unknown) Assessment + Plan (units (unknown) date) narrative: unknown) (unknown) (no (unknown) (unknown) Assessment + Plan (units (unknown) date) unknown) (unknown) (no (unknown) (unknown) Asthma (Unknown) (units (unknown) date) unknown) (unknown) (no (unknown) (unknown) Asthma (units (unkno wn) date) unknown) (unknown) (no (unknown) (unknown) BUN 26 H (units (unkno wn) date) unknown) (unknown) (no (unknown) (unknown) BUN 37 H (units (unkno wn) date) unknown) (unknown) (no (unknown) (unknown) BUN (units (unkno wn) date) unknown) (unknown) (no (unknown) (unknown) BUN/Creatinine (units (unknown) date) Ratio 31.0 H unknown) (unknown) (no (unknown) (unknown) BUN/Creatinine (units (unknown) date) Ratio 47.4 H unknown) (unknown) (no (unknown) (unknown) BUN/Creatinine (units (unknown) date) Ratio unknown) (unknown) (no (unknown) (unknown) Baso # (Auto) 100 (units (unknown) date) unknown) (unknown) (no (unknown) (unknown) Baso # (Auto) (units ( unknown) date) unknown) (unknown) (no (unknown) (unknown) Baso % (Auto) 0.6 (units (unknown) date) unknown) (unknown) (no (unknown) (unknown) Baso % (Auto) (units ( unknown) date) unknown) (unknown) (no (unknown) (unknown) Blood Pressure (units (unknown) date) 107/57 L 118/62 unknown) 108/58 L (unknown) (no (unknown) (unknown) Blood Pressure (units (unknown) date) 113/72 117/71 unknown) (unknown) (no (unknown) (unknown) Blood Pressure (units (unknown) date) 113/72 unknown) (unknown) (no (unknown) (unknown) Blood Pressure (units (unknown) date) 127/70 117/71 unknown) (unknown) (no (unknown) (unknown) Blood Pressure (units (unknown) date) unknown) (unknown) (no (unknown) (unknown) Blood Type O (units (u nknown) date) Negative unknown) (unknown) (no (unknown) (unknown) Blood Type (units (unk nown) date) unknown) (unknown) (no (unknown) (unknown) CK-MB (CK-2) Rel (units (unknown) date) Index TNP unknown) (unknown) (no (unknown) (unknown) CK-MB (CK-2) Rel (units (unknown) date) Index unknown) (unknown) (no (unknown) (unknown) CK-MB (CK-2) TNP (units (unknown) date) unknown) (unknown) (no (unknown) (unknown) CK-MB (CK-2) (units (u nknown) date) unknown) (unknown) (no (unknown) (unknown) COPD (chronic (units ( unknown) date) obstructive unknown) pulmonary disease) (unknown) (no (unknown) (unknown) COPD with mild (units (unknown) date) exacerbation unknown) -DuoNebs as needed, continuous pulse ox, O2 as (unknown) (no (unknown) (unknown) COVID-19 status: (units (unknown) date) Negative unknown) (unknown) (no (unknown) (unknown) COVID-19 (units (unkno wn) date) unknown) (unknown) (no (unknown) (unknown) Calcium 7.6 L (units ( unknown) date) unknown) (unknown) (no (unknown) (unknown) Calcium 7.9 L (units ( unknown) date) unknown) (unknown) (no (unknown) (unknown) Calcium (units (unkno wn) date) unknown) (unknown) (no (unknown) (unknown) Carbon Dioxide 28 (units (unknown) date) unknown) (unknown) (no (unknown) (unknown) Carbon Dioxide 36 (units (unknown) date) H unknown) (unknown) (no (unknown) (unknown) Carbon Dioxide (units (unknown) date) unknown) (unknown) (no (unknown) (unknown) Cardio:?RRR, (units (u nknown) date) 2-3/6 systolic unknown) murmur, no rubs or gallops. (unknown) (no (unknown) (unknown) Carpal tunnel (units ( unknown) date) syndrome (-2017) unknown) (unknown) (no (unknown) (unknown) Chest:? Normal AP (units (unknown) date) diameter and unknown) contour without kyphoscoliosis, no tachypnea, (unknown) (no (unknown) (unknown) Chloride 100 (units (u nknown) date) unknown) (unknown) (no (unknown) (unknown) Chloride 94 L (units ( unknown) date) unknown) (unknown) (no (unknown) (unknown) Chloride (units (unkno wn) date) unknown) (unknown) (no (unknown) (unknown) Chronic atrial (units (unknown) date) fibrillation unknown) (unknown) (no (unknown) (unknown) Continues to feel (units (unknown) date) quite tired and unknown) weak, but somewhat less short of breath today. (unknown) (no (unknown) (unknown) Cor pulmonale (units ( unknown) date) (chronic) unknown) (unknown) (no (unknown) (unknown) Creatinine 0.78 (units (unknown) date) unknown) (unknown) (no (unknown) (unknown) Creatinine 0.84 (units (unknown) date) unknown) (unknown) (no (unknown) (unknown) Creatinine (units (unk nown) date) unknown) (unknown) (no (unknown) (unknown) Critical Care (units ( unknown) date) time: unknown) (unknown) (no (unknown) (unknown) Crossmatch See (units (unknown) date) Detail unknown) (unknown) (no (unknown) (unknown) Crossmatch (units (unk nown) date) unknown) (unknown) (no (unknown) (unknown) : 1965 (units (unknown) date) Acct:[id number] unknown) (unknown) (no (unknown) (unknown) Date Patient (units (u nknown) date) Seen: 01/22/22 unknown) (unknown) (no (unknown) (unknown) Date of Service: (units (unknown) date) 01/21/22 unknown) (unknown) (no (unknown) (unknown) Eczema (units (unkno wn) date) unknown) (unknown) (no (unknown) (unknown) Eos # (Auto) 0 (units (unknown) date) unknown) (unknown) (no (unknown) (unknown) Eos # (Auto) (units (u nknown) date) unknown) (unknown) (no (unknown) (unknown) Eos % (Auto) 0.1 (units (unknown) date) L unknown) (unknown) (no (unknown) (unknown) Eos % (Auto) 0.2 (units (unknown) date) L unknown) (unknown) (no (unknown) (unknown) Eos % (Auto) (units (u nknown) date) unknown) (unknown) (no (unknown) (unknown) Estimated GFR > (units (unknown) date) 60 unknown) (unknown) (no (unknown) (unknown) Estimated GFR (units ( unknown) date) unknown) (unknown) (no (unknown) (unknown) Ethyl Alcohol < (units (unknown) date) 10 unknown) (unknown) (no (unknown) (unknown) Ethyl Alcohol (units ( unknown) date) unknown) (unknown) (no (unknown) (unknown) Exam Narrative: (units (unknown) date) unknown) (unknown) (no (unknown) (unknown) Exam (units (unkno wn) date) unknown) (unknown) (no (unknown) (unknown) Extremities: No (units (unknown) date) edema or joint unknown) effusions. No cyanosis or clubbing. (unknown) (no (unknown) (unknown) Family History (units (unknown) date) (Reviewed 01/21/22 unknown) @ 21:03 by Benito Simon MD) (unknown) (no (unknown) (unknown) Fraction of (units (un known) date) Inspired Oxygen 40 unknown) (unknown) (no (unknown) (unknown) Fraction of (units (un known) date) Inspired Oxygen unknown) (unknown) (no (unknown) (unknown) General:? Patient (units (unknown) date) is well developed unknown) and well nourished, obese with BMI 42.6. in (unknown) (no (unknown) (unknown) Globulin 2.5 (units (u nknown) date) unknown) (unknown) (no (unknown) (unknown) Globulin (units (unkno wn) date) unknown) (unknown) (no (unknown) (unknown) Glucose 113 H (units ( unknown) date) unknown) (unknown) (no (unknown) (unknown) Glucose 122 H (units ( unknown) date) unknown) (unknown) (no (unknown) (unknown) Glucose (units (unkno wn) date) unknown) (unknown) (no (unknown) (unknown) HEENT:? (units (unkno wn) date) Normocephalic, unknown) atraumatic, extraocular muscles intact, oral pharynx is (unknown) (no (unknown) (unknown) Hct 12.8 L* (units (un known) date) unknown) (unknown) (no (unknown) (unknown) Hct 18.1 L* (units (un known) date) unknown) (unknown) (no (unknown) (unknown) Hct 23.7 L (units (unk nown) date) unknown) (unknown) (no (unknown) (unknown) Hct (units (unkno wn) date) unknown) (unknown) (no (unknown) (unknown) Hgb 3.9 L* (units (unk nown) date) unknown) (unknown) (no (unknown) (unknown) Hgb 5.8 L* (units (unk nown) date) unknown) (unknown) (no (unknown) (unknown) Hgb 7.8 L (units (unkn own) date) unknown) (unknown) (no (unknown) (unknown) Hgb (units (unkno wn) date) unknown) (unknown) (no (unknown) (unknown) History of (units (unk nown) date) hysterectomy for unknown) cancer (unknown) (no (unknown) (unknown) Hold (units (unkno wn) date) anticoagulation unknown) given active bleeding, SCDs for DVT prophylaxis, Protonix (unknown) (no (unknown) (unknown) Hypochromasia 1+ (units (unknown) date) H D unknown) (unknown) (no (unknown) (unknown) Hypochromasia 3+ (units (unknown) date) H unknown) (unknown) (no (unknown) (unknown) Hypochromasia (units ( unknown) date) unknown) (unknown) (no (unknown) (unknown) Hypotension -most (units (unknown) date) likely secondary unknown) to hypovolemia due to GI bleed -continue (unknown) (no (unknown) (unknown) I spent a total (units (unknown) date) of [] minutes of unknown) critical care time on this patient's care (unknown) (no (unknown) (unknown) INR 1.6 H (units (unkn own) date) unknown) (unknown) (no (unknown) (unknown) INR (units (unkno wn) date) unknown) (unknown) (no (unknown) (unknown) IV for GI (units (unkn own) date) prophylaxis unknown) (unknown) (no (unknown) (unknown) Impetigo (units (unkno wn) date) unknown) (unknown) (no (unknown) (unknown) Incontinence (units (u nknown) date) unknown) (unknown) (no (unknown) (unknown) Interval history: (units (unknown) date) unknown) (unknown) (no (unknown) (unknown) [facility] (units (unknown) date) [address] unknown) [place] [address] (unknown) (no (unknown) (unknown) Laboratory (units (unk nown) date) Results - last 24 unknown) hr (unknown) (no (unknown) (unknown) Labs (units (unkno wn) date) unknown) (unknown) (no (unknown) (unknown) Labs: (units (unkno wn) date) unknown) (unknown) (no (unknown) (unknown) Lungs:? CTA b/l (units (unknown) date) no wheezing unknown) rhonchi or rales. (unknown) (no (unknown) (unknown) Lymph # (Auto) (units (unknown) date) 1700 unknown) (unknown) (no (unknown) (unknown) Lymph # (Auto) (units (unknown) date) unknown) (unknown) (no (unknown) (unknown) Lymph % (Auto) (units (unknown) date) 14.7 L unknown) (unknown) (no (unknown) (unknown) Lymph % (Auto) (units (unknown) date) 15.4 L unknown) (unknown) (no (unknown) (unknown) Lymph % (Auto) (units (unknown) date) unknown) (unknown) (no (unknown) (unknown) MCH 23.0 L (units (unk nown) date) unknown) (unknown) (no (unknown) (unknown) MCH 26.3 (units (unkno wn) date) unknown) (unknown) (no (unknown) (unknown) MCH (units (unkno wn) date) unknown) (unknown) (no (unknown) (unknown) MCHC 30.3 (units (unkn own) date) unknown) (unknown) (no (unknown) (unknown) MCHC 32.8 (units (unkn own) date) unknown) (unknown) (no (unknown) (unknown) MCHC (units (unkno wn) date) unknown) (unknown) (no (unknown) (unknown) MCV 75.9 L (units (unk nown) date) unknown) (unknown) (no (unknown) (unknown) MCV 80.2 D (units (unk nown) date) unknown) (unknown) (no (unknown) (unknown) MCV (units (unkno wn) date) unknown) (unknown) (no (unknown) (unknown) Magnesium 1.7 (units ( unknown) date) unknown) (unknown) (no (unknown) (unknown) Magnesium (units (unkn own) date) unknown) (unknown) (no (unknown) (unknown) Medical History (units (unknown) date) (Reviewed 01/21/22 unknown) @ 21:03 by Benito Simon MD) (unknown) (no (unknown) (unknown) Lyon # (Auto) (units ( unknown) date) 1100 H unknown) (unknown) (no (unknown) (unknown) Lyon # (Auto) (units ( unknown) date) 1700 H unknown) (unknown) (no (unknown) (unknown) Lyon # (Auto) (units ( unknown) date) unknown) (unknown) (no (unknown) (unknown) Lyon % (Auto) (units ( unknown) date) 14.9 H unknown) (unknown) (no (unknown) (unknown) Lyon % (Auto) 9.7 (units (unknown) date) unknown) (unknown) (no (unknown) (unknown) Lyon % (Auto) (units ( unknown) date) unknown) (unknown) (no (unknown) (unknown) Morbid obesity (units (unknown) date) due to excess unknown) calories (unknown) (no (unknown) (unknown) Mother (units (unknown) date) CVA (cerebral unknown) vascular accident) (unknown) (no (unknown) (unknown) Musculoskeletal:? (units (unknown) date) Muscle strength unknown) and tone are equal within normal limits, no (unknown) (no (unknown) (unknown) NT-Pro-B (units (unkno wn) date) Natriuret Pep 637 unknown) H (unknown) (no (unknown) (unknown) NT-Pro-B (units (unkno wn) date) Natriuret Pep unknown) (unknown) (no (unknown) (unknown) Narrative (units (unkn own) date) unknown) (unknown) (no (unknown) (unknown) Nasal Screen MRSA (units (unknown) date) (PCR) Positive for unknown) mrsa H (unknown) (no (unknown) (unknown) Nasal Screen MRSA (units (unknown) date) (PCR) unknown) (unknown) (no (unknown) (unknown) Neck: supple and (units (unknown) date) symmetric, trachea unknown) is midline, no cervical adenopathy. (unknown) (no (unknown) (unknown) Neuro:? Alert and (units (unknown) date) orientated x3,? unknown) sensation to touch intact in all extremities, (unknown) (no (unknown) (unknown) Neut # (Auto) (units ( unknown) date) 7700 H unknown) (unknown) (no (unknown) (unknown) Neut # (Auto) (units ( unknown) date) 8600 H unknown) (unknown) (no (unknown) (unknown) Neut # (Auto) (units ( unknown) date) unknown) (unknown) (no (unknown) (unknown) Neut % (Auto) (units ( unknown) date) 68.9 unknown) (unknown) (no (unknown) (unknown) Neut % (Auto) (units ( unknown) date) 74.9 unknown) (unknown) (no (unknown) (unknown) Neut % (Auto) (units ( unknown) date) unknown) (unknown) (no (unknown) (unknown) Nucleated RBCs 3 (units (unknown) date) H unknown) (unknown) (no (unknown) (unknown) Nucleated RBCs (units (unknown) date) unknown) (unknown) (no (unknown) (unknown) 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 pulmonary hypertension (unknown) (no (unknown) (unknown) Objective (units (unkn own) date) unknown) (unknown) (no (unknown) (unknown) Oxygen Delivery (units (unknown) date) Method Nasal unknown) Cannula Oximask (unknown) (no (unknown) (unknown) Oxygen Delivery (units (unknown) date) Method Oximask unknown) (unknown) (no (unknown) (unknown) Oxygen Delivery (units (unknown) date) Method unknown) (unknown) (no (unknown) (unknown) Oxygen Flow Rate (units (unknown) date) 5 5 unknown) (unknown) (no (unknown) (unknown) Oxygen Flow Rate (units (unknown) date) 5 unknown) (unknown) (no (unknown) (unknown) Oxygen Flow Rate (units (unknown) date) unknown) (unknown) (no (unknown) (unknown) PFSH (units (unkno wn) date) unknown) (unknown) (no (unknown) (unknown) PT 18.6 H (units (unkn own) date) unknown) (unknown) (no (unknown) (unknown) PT (units (unkno wn) date) unknown) (unknown) (no (unknown) (unknown) Patient is full (units (unknown) date) code, surrogate is unknown) son. (unknown) (no (unknown) (unknown) Patient: (units (unkno wn) date) Rosalba Pabon MR#: unknown) [id number] (unknown) (no (unknown) (unknown) Plt Count 274 (units ( unknown) date) unknown) (unknown) (no (unknown) (unknown) Plt Count 331 (units ( unknown) date) unknown) (unknown) (no (unknown) (unknown) Plt Count (units (unkn own) date) unknown) (unknown) (no (unknown) (unknown) Poikilocytosis 1+ (units (unknown) date) H unknown) (unknown) (no (unknown) (unknown) Poikilocytosis (units (unknown) date) unknown) (unknown) (no (unknown) (unknown) Polychromasia 1+ (units (unknown) date) H unknown) (unknown) (no (unknown) (unknown) Polychromasia (units ( unknown) date) unknown) (unknown) (no (unknown) (unknown) Potassium 3.0 L (units (unknown) date) unknown) (unknown) (no (unknown) (unknown) Potassium 3.6 (units ( unknown) date) unknown) (unknown) (no (unknown) (unknown) Potassium (units (unkn own) date) unknown) (unknown) (no (unknown) (unknown) Progress Note (units ( unknown) date) unknown) (unknown) (no (unknown) (unknown) Provider: (units (unkn own) date) Stevo Lewis unknown) D.O. (unknown) (no (unknown) (unknown) Psych:? Patient (units (unknown) date) has a well-kept unknown) appearance, appropriate affect, mental status (unknown) (no (unknown) (unknown) Pulmonary (units (unkn own) date) hypertension unknown) (unknown) (no (unknown) (unknown) Pulse Oximetry 92 (units (unknown) date) 93 unknown) (unknown) (no (unknown) (unknown) Pulse Oximetry 93 (units (unknown) date) unknown) (unknown) (no (unknown) (unknown) Pulse Oximetry 94 (units (unknown) date) unknown) (unknown) (no (unknown) (unknown) Pulse Oximetry (units (unknown) date) unknown) (unknown) (no (unknown) (unknown) Pulse Rate 103 H (units (unknown) date) 103 H unknown) (unknown) (no (unknown) (unknown) Pulse Rate 107 H (units (unknown) date) unknown) (unknown) (no (unknown) (unknown) Pulse Rate 108 H (units (unknown) date) 111 H 108 H unknown) (unknown) (no (unknown) (unknown) Pulse Rate 109 H (units (unknown) date) 104 H 103 H unknown) (unknown) (no (unknown) (unknown) Pulse Rate (units (unk nown) date) unknown) (unknown) (no (unknown) (unknown) RBC 1.68 L (units (unk nown) date) unknown) (unknown) (no (unknown) (unknown) RBC 2.96 L (units (unk nown) date) unknown) (unknown) (no (unknown) (unknown) RBC Morphology (units (unknown) date) Not Reportable unknown) (unknown) (no (unknown) (unknown) RBC Morphology (units (unknown) date) See below unknown) (unknown) (no (unknown) (unknown) RBC Morphology (units (unknown) date) unknown) (unknown) (no (unknown) (unknown) RBC (units (unkno wn) date) unknown) (unknown) (no (unknown) (unknown) RDW 21.4 H (units (unk nown) date) unknown) (unknown) (no (unknown) (unknown) RDW 21.9 H (units (unk nown) date) unknown) (unknown) (no (unknown) (unknown) RDW (units (unkno wn) date) unknown) (unknown) (no (unknown) (unknown) Respiratory Rate (units (unknown) date) 16 18 20 unknown) (unknown) (no (unknown) (unknown) Respiratory Rate (units (unknown) date) 16 20 21 unknown) (unknown) (no (unknown) (unknown) Respiratory Rate (units (unknown) date) 20 20 unknown) (unknown) (no (unknown) (unknown) Respiratory Rate (units (unknown) date) 20 unknown) (unknown) (no (unknown) (unknown) Respiratory Rate (units (unknown) date) unknown) (unknown) (no (unknown) (unknown) Restless leg (units (u nknown) date) syndrome unknown) (unknown) (no (unknown) (unknown) Result Diagrams: (units (unknown) date) unknown) (unknown) (no (unknown) (unknown) Right-sided low (units (unknown) date) back pain with unknown) sciatica (unknown) (no (unknown) (unknown) SARS-CoV-2 (PCR) (units (unknown) date) Negative unknown) (unknown) (no (unknown) (unknown) SARS-CoV-2 (PCR) (units (unknown) date) unknown) (unknown) (no (unknown) (unknown) SaO2/FiO2 Ratio (units (unknown) date) 232 unknown) (unknown) (no (unknown) (unknown) She is thirsty (units (unknown) date) this morning. unknown) (unknown) (no (unknown) (unknown) Signed By: (units (unk nown) date) unknown) (unknown) (no (unknown) (unknown) Skin:? Pale,? (units ( unknown) date) Warm to touch,dry unknown) and intact without rashes, ulcerations or (unknown) (no (unknown) (unknown) Smoking Status: (units (unknown) date) Current every day unknown) smoker (unknown) (no (unknown) (unknown) Social History (units (unknown) date) (Reviewed 01/21/22 unknown) @ 15:14 by Lilian Armstrong DO) (unknown) (no (unknown) (unknown) Sodium 135 L (units (u nknown) date) unknown) (unknown) (no (unknown) (unknown) Sodium 137 (units (unk nown) date) unknown) (unknown) (no (unknown) (unknown) Sodium (units (unkno wn) date) unknown) (unknown) (no (unknown) (unknown) Staph skin (units (unk nown) date) infection unknown) (unknown) (no (unknown) (unknown) Subjective (units (unk nown) date) unknown) (unknown) (no (unknown) (unknown) Surgical History (units (unknown) date) (Reviewed 01/21/22 unknown) @ 21:03 by Benito Simon MD) (unknown) (no (unknown) (unknown) Tachycardia (units (un known) date) unknown) (unknown) (no (unknown) (unknown) Temperature 98.5 (units (unknown) date) F 97.9 F unknown) (unknown) (no (unknown) (unknown) Temperature 98.9 (units (unknown) date) F 97.9 F unknown) (unknown) (no (unknown) (unknown) Temperature 98.9 (units (unknown) date) F 98.9 F 99.6 F unknown) (unknown) (no (unknown) (unknown) Temperature 98.9 (units (unknown) date) F unknown) (unknown) (no (unknown) (unknown) Temperature (units (un known) date) unknown) (unknown) (no (unknown) (unknown) Time Spent With (units (unknown) date) Patient unknown) (unknown) (no (unknown) (unknown) Total Bilirubin (units (unknown) date) 0.4 unknown) (unknown) (no (unknown) (unknown) Total Bilirubin (units (unknown) date) unknown) (unknown) (no (unknown) (unknown) Total Creatine (units (unknown) date) Kinase 41 unknown) (unknown) (no (unknown) (unknown) Total Creatine (units (unknown) date) Kinase unknown) (unknown) (no (unknown) (unknown) Total Protein 5.4 (units (unknown) date) L unknown) (unknown) (no (unknown) (unknown) Total Protein (units ( unknown) date) unknown) (unknown) (no (unknown) (unknown) Troponin I < (units (u nknown) date) 0.012 unknown) (unknown) (no (unknown) (unknown) Troponin I (units (unk nown) date) unknown) (unknown) (no (unknown) (unknown) Vital Signs (units (un known) date) unknown) (unknown) (no (unknown) (unknown) WBC 11.2 H (units (unk nown) date) unknown) (unknown) (no (unknown) (unknown) WBC 11.5 H (units (unk nown) date) unknown) (unknown) (no (unknown) (unknown) WBC (units (unkno wn) date) unknown) (unknown) (no (unknown) (unknown) [Embedded Image (units (unknown) date) Not Available] unknown) (unknown) (no (unknown) (unknown) alcohol intake: (units (unknown) date) current unknown) (unknown) (no (unknown) (unknown) attitude thought (units (unknown) date) context and unknown) judgment are appropriate for age. (unknown) (no (unknown) (unknown) clear and mucous (units (unknown) date) membranes are dry. unknown) (unknown) (no (unknown) (unknown) close monitoring (units (unknown) date) unknown) (unknown) (no (unknown) (unknown) deformity. (units (unk nown) date) unknown) (unknown) (no (unknown) (unknown) equal chest rise (units (unknown) date) bilaterally. unknown) (unknown) (no (unknown) (unknown) no distress at (units (unknown) date) this time. Very unknown) pale. (unknown) (no (unknown) (unknown) no gross deficits (units (unknown) date) noted of cranial unknown) nerves. (unknown) (no (unknown) (unknown) petechiae.? (units (un known) date) unknown) (unknown) (no (unknown) (unknown) quit status: has (units (unknown) date) quit before unknown) (unknown) (no (unknown) (unknown) required (units (unkno wn) date) unknown) (unknown) (no (unknown) (unknown) secondary to (units (u nknown) date) NSAID use unknown) (unknown) (no (unknown) (unknown) today; this time (units (unknown) date) is exclusive of unknown) procedural time. Result panel 56 (unknown) (no date) (unknown) (unknown) TRANSFUSED (units (un known) PRODUCT: Packed unknown) Cells COUNT: 5 Result panel 57 (unknown) (no (unknown) (unknown) (no value) (units (unk nown) date) unknown) (unknown) (no (unknown) (unknown) (past 8 hours): (units (unknown) date) unknown) (unknown) (no (unknown) (unknown) - cld okay for (units (unknown) date) today unknown) (unknown) (no (unknown) (unknown) - continue IV PPI (units (unknown) date) BID unknown) (unknown) (no (unknown) (unknown) - continue lasix (units (unknown) date) prn, continue to unknown) wean O2, goal O2 88-96% while on supplemental (unknown) (no (unknown) (unknown) - general surgery (units (unknown) date) plans for unknown) EGD/colonoscopy tomorrow (unknown) (no (unknown) (unknown) - hold home (units (un known) date) anticoagulation in unknown) setting of bleeding. (unknown) (no (unknown) (unknown) - possibly (units (unk nown) date) secondary to COPD, unknown) acute heart failure with blood administration (unknown) (no (unknown) (unknown) - s/p 5 U PRBC, (units (unknown) date) 5th running this unknown) AM, check another h/h tonight. (unknown) (no (unknown) (unknown) 01:54 01/22/22 (units (unknown) date) unknown) (unknown) (no (unknown) (unknown) 02:21 01/22/22 (units (unknown) date) unknown) (unknown) (no (unknown) (unknown) 02:37 (units (unkno wn) date) unknown) (unknown) (no (unknown) (unknown) 04:00 (units (unkno wn) date) unknown) (unknown) (no (unknown) (unknown) 04:54 01/22/22 (units (unknown) date) unknown) (unknown) (no (unknown) (unknown) 04:55 01/22/22 (units (unknown) date) unknown) (unknown) (no (unknown) (unknown) 05:55 01/22/22 (units (unknown) date) unknown) (unknown) (no (unknown) (unknown) 06:05 06:05 (units (un known) date) unknown) (unknown) (no (unknown) (unknown) 07:00 (units (unkno wn) date) unknown) (unknown) (no (unknown) (unknown) 07:30 01/22/22 (units (unknown) date) unknown) (unknown) (no (unknown) (unknown) 07:51 (units (unkno wn) date) unknown) (unknown) (no (unknown) (unknown) 08:00 01/22/22 (units (unknown) date) unknown) (unknown) (no (unknown) (unknown) 08:15 01/22/22 (units (unknown) date) unknown) (unknown) (no (unknown) (unknown) 09:00 01/22/22 (units (unknown) date) unknown) (unknown) (no (unknown) (unknown) 09:30 (units (unkno wn) date) unknown) (unknown) (no (unknown) (unknown) 01/21/22 01/21/22 (units (unknown) date) 01/21/22 unknown) (unknown) (no (unknown) (unknown) 01/22/22 06:05 (units (unknown) date) unknown) (unknown) (no (unknown) (unknown) 01/22/22 01/22/22 (units (unknown) date) unknown) (unknown) (no (unknown) (unknown) 01/22/22 (units (unkno wn) date) unknown) (unknown) (no (unknown) (unknown) 14:50 14:50 14:50 (units (unknown) date) unknown) (unknown) (no (unknown) (unknown) 14:50 18:27 21:52 (units (unknown) date) unknown) (unknown) (no (unknown) (unknown) [id number] (units (unkno wn) date) unknown) (unknown) (no (unknown) (unknown) ALT 14 (units (unkno wn) date) unknown) (unknown) (no (unknown) (unknown) ALT (units (unkno wn) date) unknown) (unknown) (no (unknown) (unknown) APTT 25 L (units (unkn own) date) unknown) (unknown) (no (unknown) (unknown) APTT (units (unkno wn) date) unknown) (unknown) (no (unknown) (unknown) AST 45 H (units (unkno wn) date) unknown) (unknown) (no (unknown) (unknown) AST (units (unkno wn) date) unknown) (unknown) (no (unknown) (unknown) Abdomen: S NT ND. (units (unknown) date) unknown) (unknown) (no (unknown) (unknown) Abdominal pain (units (unknown) date) unknown) (unknown) (no (unknown) (unknown) Acute respiratory (units (unknown) date) failure with unknown) Hypoxia (unknown) (no (unknown) (unknown) Acute symptomatic (units (unknown) date) blood loss anemia unknown) most likely related to upper GI bleed (unknown) (no (unknown) (unknown) Age/Sex: 56 / F (units (unknown) date) unknown) (unknown) (no (unknown) (unknown) Albumin 2.9 L (units ( unknown) date) unknown) (unknown) (no (unknown) (unknown) Albumin (units (unkno wn) date) unknown) (unknown) (no (unknown) (unknown) Albumin/Globulin (units (unknown) date) Ratio 1.2 unknown) (unknown) (no (unknown) (unknown) Albumin/Globulin (units (unknown) date) Ratio unknown) (unknown) (no (unknown) (unknown) Alcohol use (units (un known) date) unknown) (unknown) (no (unknown) (unknown) Alkaline (units (unkno wn) date) Phosphatase 39 unknown) (unknown) (no (unknown) (unknown) Alkaline (units (unkno wn) date) Phosphatase unknown) (unknown) (no (unknown) (unknown) Allergic (units (unkno wn) date) dermatitis of unknown) eyelids of both eyes (unknown) (no (unknown) (unknown) Anemia (units (unkno wn) date) unknown) (unknown) (no (unknown) (unknown) Anisocytosis 2+ H (units (unknown) date) unknown) (unknown) (no (unknown) (unknown) Anisocytosis (units (u nknown) date) unknown) (unknown) (no (unknown) (unknown) Antibody Screen (units (unknown) date) Negative unknown) (unknown) (no (unknown) (unknown) Antibody Screen (units (unknown) date) unknown) (unknown) (no (unknown) (unknown) Arthritis (units (unkn own) date) (Unknown) unknown) (unknown) (no (unknown) (unknown) Assessment + Plan (units (unknown) date) narrative: unknown) (unknown) (no (unknown) (unknown) Assessment + Plan (units (unknown) date) unknown) (unknown) (no (unknown) (unknown) Asthma (Unknown) (units (unknown) date) unknown) (unknown) (no (unknown) (unknown) Asthma (units (unkno wn) date) unknown) (unknown) (no (unknown) (unknown) BUN 26 H (units (unkno wn) date) unknown) (unknown) (no (unknown) (unknown) BUN 37 H (units (unkno wn) date) unknown) (unknown) (no (unknown) (unknown) BUN (units (unkno wn) date) unknown) (unknown) (no (unknown) (unknown) BUN/Creatinine (units (unknown) date) Ratio 31.0 H unknown) (unknown) (no (unknown) (unknown) BUN/Creatinine (units (unknown) date) Ratio 47.4 H unknown) (unknown) (no (unknown) (unknown) BUN/Creatinine (units (unknown) date) Ratio unknown) (unknown) (no (unknown) (unknown) Baso # (Auto) 100 (units (unknown) date) unknown) (unknown) (no (unknown) (unknown) Baso # (Auto) (units ( unknown) date) unknown) (unknown) (no (unknown) (unknown) Baso % (Auto) 0.6 (units (unknown) date) unknown) (unknown) (no (unknown) (unknown) Baso % (Auto) (units ( unknown) date) unknown) (unknown) (no (unknown) (unknown) Blood Pressure (units (unknown) date) 107/57 L 118/62 unknown) 108/58 L (unknown) (no (unknown) (unknown) Blood Pressure (units (unknown) date) 113/72 117/71 unknown) (unknown) (no (unknown) (unknown) Blood Pressure (units (unknown) date) 113/72 unknown) (unknown) (no (unknown) (unknown) Blood Pressure (units (unknown) date) 127/70 117/71 unknown) (unknown) (no (unknown) (unknown) Blood Pressure (units (unknown) date) unknown) (unknown) (no (unknown) (unknown) Blood Type O (units (u nknown) date) Negative unknown) (unknown) (no (unknown) (unknown) Blood Type (units (unk nown) date) unknown) (unknown) (no (unknown) (unknown) CK-MB (CK-2) Rel (units (unknown) date) Index TNP unknown) (unknown) (no (unknown) (unknown) CK-MB (CK-2) Rel (units (unknown) date) Index unknown) (unknown) (no (unknown) (unknown) CK-MB (CK-2) TNP (units (unknown) date) unknown) (unknown) (no (unknown) (unknown) CK-MB (CK-2) (units (u nknown) date) unknown) (unknown) (no (unknown) (unknown) COPD (chronic (units ( unknown) date) obstructive unknown) pulmonary disease) (unknown) (no (unknown) (unknown) COPD with mild (units (unknown) date) exacerbation unknown) -DuoNebs as needed, continuous pulse ox, O2 as (unknown) (no (unknown) (unknown) COVID-19 status: (units (unknown) date) Negative unknown) (unknown) (no (unknown) (unknown) COVID-19 (units (unkno wn) date) unknown) (unknown) (no (unknown) (unknown) Calcium 7.6 L (units ( unknown) date) unknown) (unknown) (no (unknown) (unknown) Calcium 7.9 L (units ( unknown) date) unknown) (unknown) (no (unknown) (unknown) Calcium (units (unkno wn) date) unknown) (unknown) (no (unknown) (unknown) Carbon Dioxide 28 (units (unknown) date) unknown) (unknown) (no (unknown) (unknown) Carbon Dioxide 36 (units (unknown) date) H unknown) (unknown) (no (unknown) (unknown) Carbon Dioxide (units (unknown) date) unknown) (unknown) (no (unknown) (unknown) Cardio:?RRR, (units (u nknown) date) 2-3/6 systolic unknown) murmur, no rubs or gallops. (unknown) (no (unknown) (unknown) Carpal tunnel (units ( unknown) date) syndrome (-2017) unknown) (unknown) (no (unknown) (unknown) Chest:? Normal AP (units (unknown) date) diameter and unknown) contour without kyphoscoliosis, no tachypnea, (unknown) (no (unknown) (unknown) Chloride 100 (units (u nknown) date) unknown) (unknown) (no (unknown) (unknown) Chloride 94 L (units ( unknown) date) unknown) (unknown) (no (unknown) (unknown) Chloride (units (unkno wn) date) unknown) (unknown) (no (unknown) (unknown) Chronic atrial (units (unknown) date) fibrillation on unknown) anticoagulation (unknown) (no (unknown) (unknown) Chronic atrial (units (unknown) date) fibrillation unknown) (unknown) (no (unknown) (unknown) Continues to feel (units (unknown) date) quite tired and unknown) weak, but somewhat less short of breath today. (unknown) (no (unknown) (unknown) Cor pulmonale (units ( unknown) date) (chronic) unknown) (unknown) (no (unknown) (unknown) Creatinine 0.78 (units (unknown) date) unknown) (unknown) (no (unknown) (unknown) Creatinine 0.84 (units (unknown) date) unknown) (unknown) (no (unknown) (unknown) Creatinine (units (unk nown) date) unknown) (unknown) (no (unknown) (unknown) Critical Care (units ( unknown) date) time: unknown) (unknown) (no (unknown) (unknown) Crossmatch See (units (unknown) date) Detail unknown) (unknown) (no (unknown) (unknown) Crossmatch (units (unk nown) date) unknown) (unknown) (no (unknown) (unknown) : 1965 (units (unknown) date) Acct:[id number] unknown) (unknown) (no (unknown) (unknown) Date Patient (units (u nknown) date) Seen: 01/22/22 unknown) (unknown) (no (unknown) (unknown) Date of Service: (units (unknown) date) 01/21/22 unknown) (unknown) (no (unknown) (unknown) Eczema (units (unkno wn) date) unknown) (unknown) (no (unknown) (unknown) Eos # (Auto) 0 (units (unknown) date) unknown) (unknown) (no (unknown) (unknown) Eos # (Auto) (units (u nknown) date) unknown) (unknown) (no (unknown) (unknown) Eos % (Auto) 0.1 (units (unknown) date) L unknown) (unknown) (no (unknown) (unknown) Eos % (Auto) 0.2 (units (unknown) date) L unknown) (unknown) (no (unknown) (unknown) Eos % (Auto) (units (u nknown) date) unknown) (unknown) (no (unknown) (unknown) Estimated GFR > (units (unknown) date) 60 unknown) (unknown) (no (unknown) (unknown) Estimated GFR (units ( unknown) date) unknown) (unknown) (no (unknown) (unknown) Ethyl Alcohol < (units (unknown) date) 10 unknown) (unknown) (no (unknown) (unknown) Ethyl Alcohol (units ( unknown) date) unknown) (unknown) (no (unknown) (unknown) Exam Narrative: (units (unknown) date) unknown) (unknown) (no (unknown) (unknown) Exam (units (unkno wn) date) unknown) (unknown) (no (unknown) (unknown) Extremities: No (units (unknown) date) edema or joint unknown) effusions. No cyanosis or clubbing. (unknown) (no (unknown) (unknown) Family History (units (unknown) date) (Reviewed 01/21/22 unknown) @ 21:03 by Benito Simon MD) (unknown) (no (unknown) (unknown) Fraction of (units (un known) date) Inspired Oxygen 40 unknown) (unknown) (no (unknown) (unknown) Fraction of (units (un known) date) Inspired Oxygen unknown) (unknown) (no (unknown) (unknown) General:? Patient (units (unknown) date) is well developed unknown) and well nourished, obese with BMI 42.6. in (unknown) (no (unknown) (unknown) Globulin 2.5 (units (u nknown) date) unknown) (unknown) (no (unknown) (unknown) Globulin (units (unkno wn) date) unknown) (unknown) (no (unknown) (unknown) Glucose 113 H (units ( unknown) date) unknown) (unknown) (no (unknown) (unknown) Glucose 122 H (units ( unknown) date) unknown) (unknown) (no (unknown) (unknown) Glucose (units (unkno wn) date) unknown) (unknown) (no (unknown) (unknown) HEENT:? (units (unkno wn) date) Normocephalic, unknown) atraumatic, extraocular muscles intact, oral pharynx is (unknown) (no (unknown) (unknown) Hct 12.8 L* (units (un known) date) unknown) (unknown) (no (unknown) (unknown) Hct 18.1 L* (units (un known) date) unknown) (unknown) (no (unknown) (unknown) Hct 23.7 L (units (unk nown) date) unknown) (unknown) (no (unknown) (unknown) Hct (units (unkno wn) date) unknown) (unknown) (no (unknown) (unknown) Hgb 3.9 L* (units (unk nown) date) unknown) (unknown) (no (unknown) (unknown) Hgb 5.8 L* (units (unk nown) date) unknown) (unknown) (no (unknown) (unknown) Hgb 7.8 L (units (unkn own) date) unknown) (unknown) (no (unknown) (unknown) Hgb (units (unkno wn) date) unknown) (unknown) (no (unknown) (unknown) History of (units (unk nown) date) hysterectomy for unknown) cancer (unknown) (no (unknown) (unknown) Hold (units (unkno wn) date) anticoagulation unknown) given active bleeding, SCDs for DVT prophylaxis, Protonix (unknown) (no (unknown) (unknown) Hypochromasia 1+ (units (unknown) date) H D unknown) (unknown) (no (unknown) (unknown) Hypochromasia 3+ (units (unknown) date) H unknown) (unknown) (no (unknown) (unknown) Hypochromasia (units ( unknown) date) unknown) (unknown) (no (unknown) (unknown) Hypokalemia (units (un known) date) unknown) (unknown) (no (unknown) (unknown) Hypotension -most (units (unknown) date) likely secondary unknown) to hypovolemia due to GI bleed -continue (unknown) (no (unknown) (unknown) I spent a total (units (unknown) date) of [] minutes of unknown) critical care time on this patient's care (unknown) (no (unknown) (unknown) INR 1.6 H (units (unkn own) date) unknown) (unknown) (no (unknown) (unknown) INR (units (unkno wn) date) unknown) (unknown) (no (unknown) (unknown) IV for GI (units (unkn own) date) prophylaxis unknown) (unknown) (no (unknown) (unknown) Impetigo (units (unkno wn) date) unknown) (unknown) (no (unknown) (unknown) Incontinence (units (u nknown) date) unknown) (unknown) (no (unknown) (unknown) Interval history: (units (unknown) date) unknown) (unknown) (no (unknown) (unknown) [facility] (units (unknown) date) [address] unknown) [place] [address] (unknown) (no (unknown) (unknown) Laboratory (units (unk nown) date) Results - last 24 unknown) hr (unknown) (no (unknown) (unknown) Labs (units (unkno wn) date) unknown) (unknown) (no (unknown) (unknown) Labs: (units (unkno wn) date) unknown) (unknown) (no (unknown) (unknown) Lungs:? CTA b/l (units (unknown) date) no wheezing unknown) rhonchi or rales. (unknown) (no (unknown) (unknown) Lymph # (Auto) (units (unknown) date) 1700 unknown) (unknown) (no (unknown) (unknown) Lymph # (Auto) (units (unknown) date) unknown) (unknown) (no (unknown) (unknown) Lymph % (Auto) (units (unknown) date) 14.7 L unknown) (unknown) (no (unknown) (unknown) Lymph % (Auto) (units (unknown) date) 15.4 L unknown) (unknown) (no (unknown) (unknown) Lymph % (Auto) (units (unknown) date) unknown) (unknown) (no (unknown) (unknown) MCH 23.0 L (units (unk nown) date) unknown) (unknown) (no (unknown) (unknown) MCH 26.3 (units (unkno wn) date) unknown) (unknown) (no (unknown) (unknown) MCH (units (unkno wn) date) unknown) (unknown) (no (unknown) (unknown) MCHC 30.3 (units (unkn own) date) unknown) (unknown) (no (unknown) (unknown) MCHC 32.8 (units (unkn own) date) unknown) (unknown) (no (unknown) (unknown) MCHC (units (unkno wn) date) unknown) (unknown) (no (unknown) (unknown) MCV 75.9 L (units (unk nown) date) unknown) (unknown) (no (unknown) (unknown) MCV 80.2 D (units (unk nown) date) unknown) (unknown) (no (unknown) (unknown) MCV (units (unkno wn) date) unknown) (unknown) (no (unknown) (unknown) Magnesium 1.7 (units ( unknown) date) unknown) (unknown) (no (unknown) (unknown) Magnesium (units (unkn own) date) unknown) (unknown) (no (unknown) (unknown) Medical History (units (unknown) date) (Reviewed 01/21/22 unknown) @ 21:03 by Benito Simon MD) (unknown) (no (unknown) (unknown) Lyon # (Auto) (units ( unknown) date) 1100 H unknown) (unknown) (no (unknown) (unknown) Lyon # (Auto) (units ( unknown) date) 1700 H unknown) (unknown) (no (unknown) (unknown) Lyon # (Auto) (units ( unknown) date) unknown) (unknown) (no (unknown) (unknown) Lyon % (Auto) (units ( unknown) date) 14.9 H unknown) (unknown) (no (unknown) (unknown) Lyon % (Auto) 9.7 (units (unknown) date) unknown) (unknown) (no (unknown) (unknown) Lyon % (Auto) (units ( unknown) date) unknown) (unknown) (no (unknown) (unknown) Morbid obesity (units (unknown) date) due to excess unknown) calories (unknown) (no (unknown) (unknown) Mother (units (unknown) date) CVA (cerebral unknown) vascular accident) (unknown) (no (unknown) (unknown) Musculoskeletal:? (units (unknown) date) Muscle strength unknown) and tone are equal within normal limits, no (unknown) (no (unknown) (unknown) NT-Pro-B (units (unkno wn) date) Natriuret Pep 637 unknown) H (unknown) (no (unknown) (unknown) NT-Pro-B (units (unkno wn) date) Natriuret Pep unknown) (unknown) (no (unknown) (unknown) Narrative (units (unkn own) date) unknown) (unknown) (no (unknown) (unknown) Nasal Screen MRSA (units (unknown) date) (PCR) Positive for unknown) mrsa H (unknown) (no (unknown) (unknown) Nasal Screen MRSA (units (unknown) date) (PCR) unknown) (unknown) (no (unknown) (unknown) Neck: supple and (units (unknown) date) symmetric, trachea unknown) is midline, no cervical adenopathy. (unknown) (no (unknown) (unknown) Neuro:? Alert and (units (unknown) date) orientated x3,? unknown) sensation to touch intact in all extremities, (unknown) (no (unknown) (unknown) Neut # (Auto) (units ( unknown) date) 7700 H unknown) (unknown) (no (unknown) (unknown) Neut # (Auto) (units ( unknown) date) 8600 H unknown) (unknown) (no (unknown) (unknown) Neut # (Auto) (units ( unknown) date) unknown) (unknown) (no (unknown) (unknown) Neut % (Auto) (units ( unknown) date) 68.9 unknown) (unknown) (no (unknown) (unknown) Neut % (Auto) (units ( unknown) date) 74.9 unknown) (unknown) (no (unknown) (unknown) Neut % (Auto) (units ( unknown) date) unknown) (unknown) (no (unknown) (unknown) Nucleated RBCs 3 (units (unknown) date) H unknown) (unknown) (no (unknown) (unknown) Nucleated RBCs (units (unknown) date) unknown) (unknown) (no (unknown) (unknown) 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 pulmonary hypertension (unknown) (no (unknown) (unknown) Objective (units (unkn own) date) unknown) (unknown) (no (unknown) (unknown) Oxygen Delivery (units (unknown) date) Method Nasal unknown) Cannula Oximask (unknown) (no (unknown) (unknown) Oxygen Delivery (units (unknown) date) Method Oximask unknown) (unknown) (no (unknown) (unknown) Oxygen Delivery (units (unknown) date) Method unknown) (unknown) (no (unknown) (unknown) Oxygen Flow Rate (units (unknown) date) 5 5 unknown) (unknown) (no (unknown) (unknown) Oxygen Flow Rate (units (unknown) date) 5 unknown) (unknown) (no (unknown) (unknown) Oxygen Flow Rate (units (unknown) date) unknown) (unknown) (no (unknown) (unknown) PFSH (units (unkno wn) date) unknown) (unknown) (no (unknown) (unknown) PT 18.6 H (units (unkn own) date) unknown) (unknown) (no (unknown) (unknown) PT (units (unkno wn) date) unknown) (unknown) (no (unknown) (unknown) Patient is full (units (unknown) date) code, surrogate is unknown) son. (unknown) (no (unknown) (unknown) Patient: (units (unkno wn) date) Rosalba Pabon MR#: unknown) [id number] (unknown) (no (unknown) (unknown) Plt Count 274 (units ( unknown) date) unknown) (unknown) (no (unknown) (unknown) Plt Count 331 (units ( unknown) date) unknown) (unknown) (no (unknown) (unknown) Plt Count (units (unkn own) date) unknown) (unknown) (no (unknown) (unknown) Poikilocytosis 1+ (units (unknown) date) H unknown) (unknown) (no (unknown) (unknown) Poikilocytosis (units (unknown) date) unknown) (unknown) (no (unknown) (unknown) Polychromasia 1+ (units (unknown) date) H unknown) (unknown) (no (unknown) (unknown) Polychromasia (units ( unknown) date) unknown) (unknown) (no (unknown) (unknown) Potassium 3.0 L (units (unknown) date) unknown) (unknown) (no (unknown) (unknown) Potassium 3.6 (units ( unknown) date) unknown) (unknown) (no (unknown) (unknown) Potassium (units (unkn own) date) unknown) (unknown) (no (unknown) (unknown) Progress Note (units ( unknown) date) unknown) (unknown) (no (unknown) (unknown) Provider: (units (unkn own) date) Stevo Lewis unknown) D.O. (unknown) (no (unknown) (unknown) Psych:? Patient (units (unknown) date) has a well-kept unknown) appearance, appropriate affect, mental status (unknown) (no (unknown) (unknown) Pulmonary (units (unkn own) date) hypertension unknown) (unknown) (no (unknown) (unknown) Pulse Oximetry 92 (units (unknown) date) 93 unknown) (unknown) (no (unknown) (unknown) Pulse Oximetry 93 (units (unknown) date) unknown) (unknown) (no (unknown) (unknown) Pulse Oximetry 94 (units (unknown) date) unknown) (unknown) (no (unknown) (unknown) Pulse Oximetry (units (unknown) date) unknown) (unknown) (no (unknown) (unknown) Pulse Rate 103 H (units (unknown) date) 103 H unknown) (unknown) (no (unknown) (unknown) Pulse Rate 107 H (units (unknown) date) unknown) (unknown) (no (unknown) (unknown) Pulse Rate 108 H (units (unknown) date) 111 H 108 H unknown) (unknown) (no (unknown) (unknown) Pulse Rate 109 H (units (unknown) date) 104 H 103 H unknown) (unknown) (no (unknown) (unknown) Pulse Rate (units (unk nown) date) unknown) (unknown) (no (unknown) (unknown) RBC 1.68 L (units (unk nown) date) unknown) (unknown) (no (unknown) (unknown) RBC 2.96 L (units (unk nown) date) unknown) (unknown) (no (unknown) (unknown) RBC Morphology (units (unknown) date) Not Reportable unknown) (unknown) (no (unknown) (unknown) RBC Morphology (units (unknown) date) See below unknown) (unknown) (no (unknown) (unknown) RBC Morphology (units (unknown) date) unknown) (unknown) (no (unknown) (unknown) RBC (units (unkno wn) date) unknown) (unknown) (no (unknown) (unknown) RDW 21.4 H (units (unk nown) date) unknown) (unknown) (no (unknown) (unknown) RDW 21.9 H (units (unk nown) date) unknown) (unknown) (no (unknown) (unknown) RDW (units (unkno wn) date) unknown) (unknown) (no (unknown) (unknown) Respiratory Rate (units (unknown) date) 16 18 20 unknown) (unknown) (no (unknown) (unknown) Respiratory Rate (units (unknown) date) 16 20 21 unknown) (unknown) (no (unknown) (unknown) Respiratory Rate (units (unknown) date) 20 20 unknown) (unknown) (no (unknown) (unknown) Respiratory Rate (units (unknown) date) 20 unknown) (unknown) (no (unknown) (unknown) Respiratory Rate (units (unknown) date) unknown) (unknown) (no (unknown) (unknown) Restless leg (units (u nknown) date) syndrome unknown) (unknown) (no (unknown) (unknown) Result Diagrams: (units (unknown) date) unknown) (unknown) (no (unknown) (unknown) Right-sided low (units (unknown) date) back pain with unknown) sciatica (unknown) (no (unknown) (unknown) SARS-CoV-2 (PCR) (units (unknown) date) Negative unknown) (unknown) (no (unknown) (unknown) SARS-CoV-2 (PCR) (units (unknown) date) unknown) (unknown) (no (unknown) (unknown) SaO2/FiO2 Ratio (units (unknown) date) 232 unknown) (unknown) (no (unknown) (unknown) She is thirsty (units (unknown) date) this morning. unknown) (unknown) (no (unknown) (unknown) Signed By: (units (unk nown) date) unknown) (unknown) (no (unknown) (unknown) Skin:? Pale,? (units ( unknown) date) Warm to touch,dry unknown) and intact without rashes, ulcerations or (unknown) (no (unknown) (unknown) Smoking Status: (units (unknown) date) Current every day unknown) smoker (unknown) (no (unknown) (unknown) Social History (units (unknown) date) (Reviewed 01/21/22 unknown) @ 15:14 by Lilian Armstrong DO) (unknown) (no (unknown) (unknown) Sodium 135 L (units (u nknown) date) unknown) (unknown) (no (unknown) (unknown) Sodium 137 (units (unk nown) date) unknown) (unknown) (no (unknown) (unknown) Sodium (units (unkno wn) date) unknown) (unknown) (no (unknown) (unknown) Staph skin (units (unk nown) date) infection unknown) (unknown) (no (unknown) (unknown) Subjective (units (unk nown) date) unknown) (unknown) (no (unknown) (unknown) Surgical History (units (unknown) date) (Reviewed 01/21/22 unknown) @ 21:03 by Benito Simon MD) (unknown) (no (unknown) (unknown) Tachycardia (units (un known) date) unknown) (unknown) (no (unknown) (unknown) Temperature 98.5 (units (unknown) date) F 97.9 F unknown) (unknown) (no (unknown) (unknown) Temperature 98.9 (units (unknown) date) F 97.9 F unknown) (unknown) (no (unknown) (unknown) Temperature 98.9 (units (unknown) date) F 98.9 F 99.6 F unknown) (unknown) (no (unknown) (unknown) Temperature 98.9 (units (unknown) date) F unknown) (unknown) (no (unknown) (unknown) Temperature (units (un known) date) unknown) (unknown) (no (unknown) (unknown) Time Spent With (units (unknown) date) Patient unknown) (unknown) (no (unknown) (unknown) Total Bilirubin (units (unknown) date) 0.4 unknown) (unknown) (no (unknown) (unknown) Total Bilirubin (units (unknown) date) unknown) (unknown) (no (unknown) (unknown) Total Creatine (units (unknown) date) Kinase 41 unknown) (unknown) (no (unknown) (unknown) Total Creatine (units (unknown) date) Kinase unknown) (unknown) (no (unknown) (unknown) Total Protein 5.4 (units (unknown) date) L unknown) (unknown) (no (unknown) (unknown) Total Protein (units ( unknown) date) unknown) (unknown) (no (unknown) (unknown) Troponin I < (units (u nknown) date) 0.012 unknown) (unknown) (no (unknown) (unknown) Troponin I (units (unk nown) date) unknown) (unknown) (no (unknown) (unknown) Vital Signs (units (un known) date) unknown) (unknown) (no (unknown) (unknown) WBC 11.2 H (units (unk nown) date) unknown) (unknown) (no (unknown) (unknown) WBC 11.5 H (units (unk nown) date) unknown) (unknown) (no (unknown) (unknown) WBC (units (unkno wn) date) unknown) (unknown) (no (unknown) (unknown) [Embedded Image (units (unknown) date) Not Available] unknown) (unknown) (no (unknown) (unknown) alcohol intake: (units (unknown) date) current unknown) (unknown) (no (unknown) (unknown) attitude thought (units (unknown) date) context and unknown) judgment are appropriate for age. (unknown) (no (unknown) (unknown) clear and mucous (units (unknown) date) membranes are dry. unknown) (unknown) (no (unknown) (unknown) close monitoring (units (unknown) date) unknown) (unknown) (no (unknown) (unknown) deformity. (units (unk nown) date) unknown) (unknown) (no (unknown) (unknown) equal chest rise (units (unknown) date) bilaterally. unknown) (unknown) (no (unknown) (unknown) no distress at (units (unknown) date) this time. Very unknown) pale. (unknown) (no (unknown) (unknown) no gross deficits (units (unknown) date) noted of cranial unknown) nerves. (unknown) (no (unknown) (unknown) petechiae.? (units (un known) date) unknown) (unknown) (no (unknown) (unknown) quit status: has (units (unknown) date) quit before unknown) (unknown) (no (unknown) (unknown) required (units (unkno wn) date) unknown) (unknown) (no (unknown) (unknown) secondary to (units (u nknown) date) NSAID use unknown) (unknown) (no (unknown) (unknown) therapy given (units ( unknown) date) COPD. unknown) (unknown) (no (unknown) (unknown) today; this time (units (unknown) date) is exclusive of unknown) procedural time. Result panel 58 (unknown) (no date) (unknown) (unknown) TRANSFUSED (units (un known) PRODUCT: Packed unknown) Cells COUNT: 5 Result panel 59 (unknown) (no (unknown) (unknown) (no value) (units (unk nown) date) unknown) (unknown) (no (unknown) (unknown) (past 8 hours): (units (unknown) date) unknown) (unknown) (no (unknown) (unknown) - cld okay for (units (unknown) date) today unknown) (unknown) (no (unknown) (unknown) - continue IV PPI (units (unknown) date) BID, holding home unknown) AC (unknown) (no (unknown) (unknown) - continue lasix (units (unknown) date) prn, continue to unknown) wean O2, goal O2 88-96% while on supplemental (unknown) (no (unknown) (unknown) - general surgery (units (unknown) date) plans for unknown) EGD/colonoscopy tomorrow (unknown) (no (unknown) (unknown) - hold home (units (un known) date) anticoagulation in unknown) setting of bleeding. (unknown) (no (unknown) (unknown) - possibly (units (unk nown) date) secondary to COPD, unknown) acute heart failure with blood administration (unknown) (no (unknown) (unknown) - s/p 5 U PRBC, (units (unknown) date) 5th running this unknown) AM, check another h/h tonight. (unknown) (no (unknown) (unknown) 01:54 01/22/22 (units (unknown) date) unknown) (unknown) (no (unknown) (unknown) 02:21 01/22/22 (units (unknown) date) unknown) (unknown) (no (unknown) (unknown) 02:37 (units (unkno wn) date) unknown) (unknown) (no (unknown) (unknown) 04:00 (units (unkno wn) date) unknown) (unknown) (no (unknown) (unknown) 04:54 01/22/22 (units (unknown) date) unknown) (unknown) (no (unknown) (unknown) 04:55 01/22/22 (units (unknown) date) unknown) (unknown) (no (unknown) (unknown) 05:55 01/22/22 (units (unknown) date) unknown) (unknown) (no (unknown) (unknown) 06:05 06:05 (units (un known) date) unknown) (unknown) (no (unknown) (unknown) 07:00 (units (unkno wn) date) unknown) (unknown) (no (unknown) (unknown) 07:30 01/22/22 (units (unknown) date) unknown) (unknown) (no (unknown) (unknown) 07:51 (units (unkno wn) date) unknown) (unknown) (no (unknown) (unknown) 08:00 01/22/22 (units (unknown) date) unknown) (unknown) (no (unknown) (unknown) 08:15 01/22/22 (units (unknown) date) unknown) (unknown) (no (unknown) (unknown) 09:00 01/22/22 (units (unknown) date) unknown) (unknown) (no (unknown) (unknown) 09:30 (units (unkno wn) date) unknown) (unknown) (no (unknown) (unknown) 01/21/22 01/21/22 (units (unknown) date) 01/21/22 unknown) (unknown) (no (unknown) (unknown) 01/22/22 06:05 (units (unknown) date) unknown) (unknown) (no (unknown) (unknown) 01/22/22 01/22/22 (units (unknown) date) unknown) (unknown) (no (unknown) (unknown) 01/22/22 (units (unkno wn) date) unknown) (unknown) (no (unknown) (unknown) 14:50 14:50 14:50 (units (unknown) date) unknown) (unknown) (no (unknown) (unknown) 14:50 18:27 21:52 (units (unknown) date) unknown) (unknown) (no (unknown) (unknown) [id number] (units (unkno wn) date) unknown) (unknown) (no (unknown) (unknown) ALT 14 (units (unkno wn) date) unknown) (unknown) (no (unknown) (unknown) ALT (units (unkno wn) date) unknown) (unknown) (no (unknown) (unknown) APTT 25 L (units (unkn own) date) unknown) (unknown) (no (unknown) (unknown) APTT (units (unkno wn) date) unknown) (unknown) (no (unknown) (unknown) AST 45 H (units (unkno wn) date) unknown) (unknown) (no (unknown) (unknown) AST (units (unkno wn) date) unknown) (unknown) (no (unknown) (unknown) Abdomen: S NT ND. (units (unknown) date) unknown) (unknown) (no (unknown) (unknown) Abdominal pain (units (unknown) date) unknown) (unknown) (no (unknown) (unknown) Acute respiratory (units (unknown) date) failure with unknown) Hypoxia (unknown) (no (unknown) (unknown) Acute symptomatic (units (unknown) date) blood loss anemia unknown) most likely related to upper GI bleed (unknown) (no (unknown) (unknown) Age/Sex: 56 / F (units (unknown) date) unknown) (unknown) (no (unknown) (unknown) Albumin 2.9 L (units ( unknown) date) unknown) (unknown) (no (unknown) (unknown) Albumin (units (unkno wn) date) unknown) (unknown) (no (unknown) (unknown) Albumin/Globulin (units (unknown) date) Ratio 1.2 unknown) (unknown) (no (unknown) (unknown) Albumin/Globulin (units (unknown) date) Ratio unknown) (unknown) (no (unknown) (unknown) Alcohol use (units (un known) date) unknown) (unknown) (no (unknown) (unknown) Alkaline (units (unkno wn) date) Phosphatase 39 unknown) (unknown) (no (unknown) (unknown) Alkaline (units (unkno wn) date) Phosphatase unknown) (unknown) (no (unknown) (unknown) Allergic (units (unkno wn) date) dermatitis of unknown) eyelids of both eyes (unknown) (no (unknown) (unknown) Anemia (units (unkno wn) date) unknown) (unknown) (no (unknown) (unknown) Anisocytosis 2+ H (units (unknown) date) unknown) (unknown) (no (unknown) (unknown) Anisocytosis (units (u nknown) date) unknown) (unknown) (no (unknown) (unknown) Antibody Screen (units (unknown) date) Negative unknown) (unknown) (no (unknown) (unknown) Antibody Screen (units (unknown) date) unknown) (unknown) (no (unknown) (unknown) Arthritis (units (unkn own) date) (Unknown) unknown) (unknown) (no (unknown) (unknown) Assessment + Plan (units (unknown) date) narrative: unknown) (unknown) (no (unknown) (unknown) Assessment + Plan (units (unknown) date) unknown) (unknown) (no (unknown) (unknown) Asthma (Unknown) (units (unknown) date) unknown) (unknown) (no (unknown) (unknown) Asthma (units (unkno wn) date) unknown) (unknown) (no (unknown) (unknown) BUN 26 H (units (unkno wn) date) unknown) (unknown) (no (unknown) (unknown) BUN 37 H (units (unkno wn) date) unknown) (unknown) (no (unknown) (unknown) BUN (units (unkno wn) date) unknown) (unknown) (no (unknown) (unknown) BUN/Creatinine (units (unknown) date) Ratio 31.0 H unknown) (unknown) (no (unknown) (unknown) BUN/Creatinine (units (unknown) date) Ratio 47.4 H unknown) (unknown) (no (unknown) (unknown) BUN/Creatinine (units (unknown) date) Ratio unknown) (unknown) (no (unknown) (unknown) Baso # (Auto) 100 (units (unknown) date) unknown) (unknown) (no (unknown) (unknown) Baso # (Auto) (units ( unknown) date) unknown) (unknown) (no (unknown) (unknown) Baso % (Auto) 0.6 (units (unknown) date) unknown) (unknown) (no (unknown) (unknown) Baso % (Auto) (units ( unknown) date) unknown) (unknown) (no (unknown) (unknown) Blood Pressure (units (unknown) date) 107/57 L 118/62 unknown) 108/58 L (unknown) (no (unknown) (unknown) Blood Pressure (units (unknown) date) 113/72 117/71 unknown) (unknown) (no (unknown) (unknown) Blood Pressure (units (unknown) date) 113/72 unknown) (unknown) (no (unknown) (unknown) Blood Pressure (units (unknown) date) 127/70 117/71 unknown) (unknown) (no (unknown) (unknown) Blood Pressure (units (unknown) date) unknown) (unknown) (no (unknown) (unknown) Blood Type O (units (u nknown) date) Negative unknown) (unknown) (no (unknown) (unknown) Blood Type (units (unk nown) date) unknown) (unknown) (no (unknown) (unknown) CK-MB (CK-2) Rel (units (unknown) date) Index TNP unknown) (unknown) (no (unknown) (unknown) CK-MB (CK-2) Rel (units (unknown) date) Index unknown) (unknown) (no (unknown) (unknown) CK-MB (CK-2) TNP (units (unknown) date) unknown) (unknown) (no (unknown) (unknown) CK-MB (CK-2) (units (u nknown) date) unknown) (unknown) (no (unknown) (unknown) COPD (chronic (units ( unknown) date) obstructive unknown) pulmonary disease) (unknown) (no (unknown) (unknown) COPD with mild (units (unknown) date) exacerbation unknown) -DuoNebs as needed, continuous pulse ox, O2 as (unknown) (no (unknown) (unknown) COVID-19 status: (units (unknown) date) Negative unknown) (unknown) (no (unknown) (unknown) COVID-19 (units (unkno wn) date) unknown) (unknown) (no (unknown) (unknown) Calcium 7.6 L (units ( unknown) date) unknown) (unknown) (no (unknown) (unknown) Calcium 7.9 L (units ( unknown) date) unknown) (unknown) (no (unknown) (unknown) Calcium (units (unkno wn) date) unknown) (unknown) (no (unknown) (unknown) Carbon Dioxide 28 (units (unknown) date) unknown) (unknown) (no (unknown) (unknown) Carbon Dioxide 36 (units (unknown) date) H unknown) (unknown) (no (unknown) (unknown) Carbon Dioxide (units (unknown) date) unknown) (unknown) (no (unknown) (unknown) Cardio:?RRR, (units (u nknown) date) 2-3/6 systolic unknown) murmur, no rubs or gallops. (unknown) (no (unknown) (unknown) Carpal tunnel (units ( unknown) date) syndrome (-2017) unknown) (unknown) (no (unknown) (unknown) Chest:? Normal AP (units (unknown) date) diameter and unknown) contour without kyphoscoliosis, no tachypnea, (unknown) (no (unknown) (unknown) Chloride 100 (units (u nknown) date) unknown) (unknown) (no (unknown) (unknown) Chloride 94 L (units ( unknown) date) unknown) (unknown) (no (unknown) (unknown) Chloride (units (unkno wn) date) unknown) (unknown) (no (unknown) (unknown) Chronic atrial (units (unknown) date) fibrillation on unknown) anticoagulation (unknown) (no (unknown) (unknown) Chronic atrial (units (unknown) date) fibrillation unknown) (unknown) (no (unknown) (unknown) Continues to feel (units (unknown) date) quite tired and unknown) weak, but somewhat less short of breath today. (unknown) (no (unknown) (unknown) Cor pulmonale (units ( unknown) date) (chronic) unknown) (unknown) (no (unknown) (unknown) Creatinine 0.78 (units (unknown) date) unknown) (unknown) (no (unknown) (unknown) Creatinine 0.84 (units (unknown) date) unknown) (unknown) (no (unknown) (unknown) Creatinine (units (unk nown) date) unknown) (unknown) (no (unknown) (unknown) Critical Care (units ( unknown) date) time: unknown) (unknown) (no (unknown) (unknown) Crossmatch See (units (unknown) date) Detail unknown) (unknown) (no (unknown) (unknown) Crossmatch (units (unk nown) date) unknown) (unknown) (no (unknown) (unknown) : 1965 (units (unknown) date) Acct:[id number] unknown) (unknown) (no (unknown) (unknown) Date Patient (units (u nknown) date) Seen: 01/22/22 unknown) (unknown) (no (unknown) (unknown) Date of Service: (units (unknown) date) 01/21/22 unknown) (unknown) (no (unknown) (unknown) Eczema (units (unkno wn) date) unknown) (unknown) (no (unknown) (unknown) Eos # (Auto) 0 (units (unknown) date) unknown) (unknown) (no (unknown) (unknown) Eos # (Auto) (units (u nknown) date) unknown) (unknown) (no (unknown) (unknown) Eos % (Auto) 0.1 (units (unknown) date) L unknown) (unknown) (no (unknown) (unknown) Eos % (Auto) 0.2 (units (unknown) date) L unknown) (unknown) (no (unknown) (unknown) Eos % (Auto) (units (u nknown) date) unknown) (unknown) (no (unknown) (unknown) Estimated GFR > (units (unknown) date) 60 unknown) (unknown) (no (unknown) (unknown) Estimated GFR (units ( unknown) date) unknown) (unknown) (no (unknown) (unknown) Ethyl Alcohol < (units (unknown) date) 10 unknown) (unknown) (no (unknown) (unknown) Ethyl Alcohol (units ( unknown) date) unknown) (unknown) (no (unknown) (unknown) Exam Narrative: (units (unknown) date) unknown) (unknown) (no (unknown) (unknown) Exam (units (unkno wn) date) unknown) (unknown) (no (unknown) (unknown) Extremities: No (units (unknown) date) edema or joint unknown) effusions. No cyanosis or clubbing. (unknown) (no (unknown) (unknown) Family History (units (unknown) date) (Reviewed 01/21/22 unknown) @ 21:03 by Benito Simon MD) (unknown) (no (unknown) (unknown) Fraction of (units (un known) date) Inspired Oxygen 40 unknown) (unknown) (no (unknown) (unknown) Fraction of (units (un known) date) Inspired Oxygen unknown) (unknown) (no (unknown) (unknown) General:? Patient (units (unknown) date) is well developed unknown) and well nourished, obese with BMI 42.6. in (unknown) (no (unknown) (unknown) Globulin 2.5 (units (u nknown) date) unknown) (unknown) (no (unknown) (unknown) Globulin (units (unkno wn) date) unknown) (unknown) (no (unknown) (unknown) Glucose 113 H (units ( unknown) date) unknown) (unknown) (no (unknown) (unknown) Glucose 122 H (units ( unknown) date) unknown) (unknown) (no (unknown) (unknown) Glucose (units (unkno wn) date) unknown) (unknown) (no (unknown) (unknown) HEENT:? (units (unkno wn) date) Normocephalic, unknown) atraumatic, extraocular muscles intact, oral pharynx is (unknown) (no (unknown) (unknown) Hct 12.8 L* (units (un known) date) unknown) (unknown) (no (unknown) (unknown) Hct 18.1 L* (units (un known) date) unknown) (unknown) (no (unknown) (unknown) Hct 23.7 L (units (unk nown) date) unknown) (unknown) (no (unknown) (unknown) Hct (units (unkno wn) date) unknown) (unknown) (no (unknown) (unknown) Hgb 3.9 L* (units (unk nown) date) unknown) (unknown) (no (unknown) (unknown) Hgb 5.8 L* (units (unk nown) date) unknown) (unknown) (no (unknown) (unknown) Hgb 7.8 L (units (unkn own) date) unknown) (unknown) (no (unknown) (unknown) Hgb (units (unkno wn) date) unknown) (unknown) (no (unknown) (unknown) History of (units (unk nown) date) hysterectomy for unknown) cancer (unknown) (no (unknown) (unknown) Hold (units (unkno wn) date) anticoagulation unknown) given active bleeding, SCDs for DVT prophylaxis, Protonix (unknown) (no (unknown) (unknown) Hypochromasia 1+ (units (unknown) date) H D unknown) (unknown) (no (unknown) (unknown) Hypochromasia 3+ (units (unknown) date) H unknown) (unknown) (no (unknown) (unknown) Hypochromasia (units ( unknown) date) unknown) (unknown) (no (unknown) (unknown) Hypokalemia (units (un known) date) unknown) (unknown) (no (unknown) (unknown) Hypotension -most (units (unknown) date) likely secondary unknown) to hypovolemia due to GI bleed -continue (unknown) (no (unknown) (unknown) I spent a total (units (unknown) date) of [] minutes of unknown) critical care time on this patient's care (unknown) (no (unknown) (unknown) INR 1.6 H (units (unkn own) date) unknown) (unknown) (no (unknown) (unknown) INR (units (unkno wn) date) unknown) (unknown) (no (unknown) (unknown) IV for GI (units (unkn own) date) prophylaxis unknown) (unknown) (no (unknown) (unknown) Impetigo (units (unkno wn) date) unknown) (unknown) (no (unknown) (unknown) Incontinence (units (u nknown) date) unknown) (unknown) (no (unknown) (unknown) Interval history: (units (unknown) date) unknown) (unknown) (no (unknown) (unknown) [facility] (units (unknown) date) [address] unknown) [place] [address] (unknown) (no (unknown) (unknown) Laboratory (units (unk nown) date) Results - last unknown) hr (unknown) (no (unknown) (unknown) Labs (units (unkno wn) date) unknown) (unknown) (no (unknown) (unknown) Labs: (units (unkno wn) date) unknown) (unknown) (no (unknown) (unknown) Lungs:? CTA b/l (units (unknown) date) no wheezing unknown) rhonchi or rales. (unknown) (no (unknown) (unknown) Lymph # (Auto) (units (unknown) date) 1700 unknown) (unknown) (no (unknown) (unknown) Lymph # (Auto) (units (unknown) date) unknown) (unknown) (no (unknown) (unknown) Lymph % (Auto) (units (unknown) date) 14.7 L unknown) (unknown) (no (unknown) (unknown) Lymph % (Auto) (units (unknown) date) 15.4 L unknown) (unknown) (no (unknown) (unknown) Lymph % (Auto) (units (unknown) date) unknown) (unknown) (no (unknown) (unknown) MCH 23.0 L (units (unk nown) date) unknown) (unknown) (no (unknown) (unknown) MCH 26.3 (units (unkno wn) date) unknown) (unknown) (no (unknown) (unknown) MCH (units (unkno wn) date) unknown) (unknown) (no (unknown) (unknown) MCHC 30.3 (units (unkn own) date) unknown) (unknown) (no (unknown) (unknown) MCHC 32.8 (units (unkn own) date) unknown) (unknown) (no (unknown) (unknown) MCHC (units (unkno wn) date) unknown) (unknown) (no (unknown) (unknown) MCV 75.9 L (units (unk nown) date) unknown) (unknown) (no (unknown) (unknown) MCV 80.2 D (units (unk nown) date) unknown) (unknown) (no (unknown) (unknown) MCV (units (unkno wn) date) unknown) (unknown) (no (unknown) (unknown) Magnesium 1.7 (units ( unknown) date) unknown) (unknown) (no (unknown) (unknown) Magnesium (units (unkn own) date) unknown) (unknown) (no (unknown) (unknown) Medical History (units (unknown) date) (Reviewed 01/21/22 unknown) @ 21:03 by Benito Simon MD) (unknown) (no (unknown) (unknown) Lyon # (Auto) (units ( unknown) date) 1100 H unknown) (unknown) (no (unknown) (unknown) Lyon # (Auto) (units ( unknown) date) 1700 H unknown) (unknown) (no (unknown) (unknown) Lyon # (Auto) (units ( unknown) date) unknown) (unknown) (no (unknown) (unknown) Lyon % (Auto) (units ( unknown) date) 14.9 H unknown) (unknown) (no (unknown) (unknown) Lyon % (Auto) 9.7 (units (unknown) date) unknown) (unknown) (no (unknown) (unknown) Lyon % (Auto) (units ( unknown) date) unknown) (unknown) (no (unknown) (unknown) Morbid obesity (units (unknown) date) due to excess unknown) calories (unknown) (no (unknown) (unknown) Mother (units (unknown) date) CVA (cerebral unknown) vascular accident) (unknown) (no (unknown) (unknown) Musculoskeletal:? (units (unknown) date) Muscle strength unknown) and tone are equal within normal limits, no (unknown) (no (unknown) (unknown) NT-Pro-B (units (unkno wn) date) Natriuret Pep 637 unknown) H (unknown) (no (unknown) (unknown) NT-Pro-B (units (unkno wn) date) Natriuret Pep unknown) (unknown) (no (unknown) (unknown) Narrative (units (unkn own) date) unknown) (unknown) (no (unknown) (unknown) Nasal Screen MRSA (units (unknown) date) (PCR) Positive for unknown) mrsa H (unknown) (no (unknown) (unknown) Nasal Screen MRSA (units (unknown) date) (PCR) unknown) (unknown) (no (unknown) (unknown) Neck: supple and (units (unknown) date) symmetric, trachea unknown) is midline, no cervical adenopathy. (unknown) (no (unknown) (unknown) Neuro:? Alert and (units (unknown) date) orientated x3,? unknown) sensation to touch intact in all extremities, (unknown) (no (unknown) (unknown) Neut # (Auto) (units ( unknown) date) 7700 H unknown) (unknown) (no (unknown) (unknown) Neut # (Auto) (units ( unknown) date) 8600 H unknown) (unknown) (no (unknown) (unknown) Neut # (Auto) (units ( unknown) date) unknown) (unknown) (no (unknown) (unknown) Neut % (Auto) (units ( unknown) date) 68.9 unknown) (unknown) (no (unknown) (unknown) Neut % (Auto) (units ( unknown) date) 74.9 unknown) (unknown) (no (unknown) (unknown) Neut % (Auto) (units ( unknown) date) unknown) (unknown) (no (unknown) (unknown) Nucleated RBCs 3 (units (unknown) date) H unknown) (unknown) (no (unknown) (unknown) Nucleated RBCs (units (unknown) date) unknown) (unknown) (no (unknown) (unknown) 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 pulmonary hypertension (unknown) (no (unknown) (unknown) Objective (units (unkn own) date) unknown) (unknown) (no (unknown) (unknown) Oxygen Delivery (units (unknown) date) Method Nasal unknown) Cannula Oximask (unknown) (no (unknown) (unknown) Oxygen Delivery (units (unknown) date) Method Oximask unknown) (unknown) (no (unknown) (unknown) Oxygen Delivery (units (unknown) date) Method unknown) (unknown) (no (unknown) (unknown) Oxygen Flow Rate (units (unknown) date) 5 5 unknown) (unknown) (no (unknown) (unknown) Oxygen Flow Rate (units (unknown) date) 5 unknown) (unknown) (no (unknown) (unknown) Oxygen Flow Rate (units (unknown) date) unknown) (unknown) (no (unknown) (unknown) PFSH (units (unkno wn) date) unknown) (unknown) (no (unknown) (unknown) PT 18.6 H (units (unkn own) date) unknown) (unknown) (no (unknown) (unknown) PT (units (unkno wn) date) unknown) (unknown) (no (unknown) (unknown) Patient is full (units (unknown) date) code, surrogate is unknown) son. (unknown) (no (unknown) (unknown) Patient: (units (unkno wn) date) Rosalba Pabon MR#: unknown) [id number] (unknown) (no (unknown) (unknown) Plt Count 274 (units ( unknown) date) unknown) (unknown) (no (unknown) (unknown) Plt Count 331 (units ( unknown) date) unknown) (unknown) (no (unknown) (unknown) Plt Count (units (unkn own) date) unknown) (unknown) (no (unknown) (unknown) Poikilocytosis 1+ (units (unknown) date) H unknown) (unknown) (no (unknown) (unknown) Poikilocytosis (units (unknown) date) unknown) (unknown) (no (unknown) (unknown) Polychromasia 1+ (units (unknown) date) H unknown) (unknown) (no (unknown) (unknown) Polychromasia (units ( unknown) date) unknown) (unknown) (no (unknown) (unknown) Potassium 3.0 L (units (unknown) date) unknown) (unknown) (no (unknown) (unknown) Potassium 3.6 (units ( unknown) date) unknown) (unknown) (no (unknown) (unknown) Potassium (units (unkn own) date) unknown) (unknown) (no (unknown) (unknown) Progress Note (units ( unknown) date) unknown) (unknown) (no (unknown) (unknown) Provider: (units (unkn own) date) Stevo Lewis unknown) D.O. (unknown) (no (unknown) (unknown) Psych:? Patient (units (unknown) date) has a well-kept unknown) appearance, appropriate affect, mental status (unknown) (no (unknown) (unknown) Pulmonary (units (unkn own) date) hypertension unknown) (unknown) (no (unknown) (unknown) Pulse Oximetry 92 (units (unknown) date) 93 unknown) (unknown) (no (unknown) (unknown) Pulse Oximetry 93 (units (unknown) date) unknown) (unknown) (no (unknown) (unknown) Pulse Oximetry 94 (units (unknown) date) unknown) (unknown) (no (unknown) (unknown) Pulse Oximetry (units (unknown) date) unknown) (unknown) (no (unknown) (unknown) Pulse Rate 103 H (units (unknown) date) 103 H unknown) (unknown) (no (unknown) (unknown) Pulse Rate 107 H (units (unknown) date) unknown) (unknown) (no (unknown) (unknown) Pulse Rate 108 H (units (unknown) date) 111 H 108 H unknown) (unknown) (no (unknown) (unknown) Pulse Rate 109 H (units (unknown) date) 104 H 103 H unknown) (unknown) (no (unknown) (unknown) Pulse Rate (units (unk nown) date) unknown) (unknown) (no (unknown) (unknown) RBC 1.68 L (units (unk nown) date) unknown) (unknown) (no (unknown) (unknown) RBC 2.96 L (units (unk nown) date) unknown) (unknown) (no (unknown) (unknown) RBC Morphology (units (unknown) date) Not Reportable unknown) (unknown) (no (unknown) (unknown) RBC Morphology (units (unknown) date) See below unknown) (unknown) (no (unknown) (unknown) RBC Morphology (units (unknown) date) unknown) (unknown) (no (unknown) (unknown) RBC (units (unkno wn) date) unknown) (unknown) (no (unknown) (unknown) RDW 21.4 H (units (unk nown) date) unknown) (unknown) (no (unknown) (unknown) RDW 21.9 H (units (unk nown) date) unknown) (unknown) (no (unknown) (unknown) RDW (units (unkno wn) date) unknown) (unknown) (no (unknown) (unknown) Respiratory Rate (units (unknown) date) 16 18 20 unknown) (unknown) (no (unknown) (unknown) Respiratory Rate (units (unknown) date) 16 20 21 unknown) (unknown) (no (unknown) (unknown) Respiratory Rate (units (unknown) date) 20 20 unknown) (unknown) (no (unknown) (unknown) Respiratory Rate (units (unknown) date) 20 unknown) (unknown) (no (unknown) (unknown) Respiratory Rate (units (unknown) date) unknown) (unknown) (no (unknown) (unknown) Restless leg (units (u nknown) date) syndrome unknown) (unknown) (no (unknown) (unknown) Result Diagrams: (units (unknown) date) unknown) (unknown) (no (unknown) (unknown) Right-sided low (units (unknown) date) back pain with unknown) sciatica (unknown) (no (unknown) (unknown) SARS-CoV-2 (PCR) (units (unknown) date) Negative unknown) (unknown) (no (unknown) (unknown) SARS-CoV-2 (PCR) (units (unknown) date) unknown) (unknown) (no (unknown) (unknown) SaO2/FiO2 Ratio (units (unknown) date) 232 unknown) (unknown) (no (unknown) (unknown) She is thirsty (units (unknown) date) this morning. unknown) (unknown) (no (unknown) (unknown) Signed By: (units (unk nown) date) unknown) (unknown) (no (unknown) (unknown) Skin:? Pale,? (units ( unknown) date) Warm to touch,dry unknown) and intact without rashes, ulcerations or (unknown) (no (unknown) (unknown) Smoking Status: (units (unknown) date) Current every day unknown) smoker (unknown) (no (unknown) (unknown) Social History (units (unknown) date) (Reviewed 01/21/22 unknown) @ 15:14 by Lilian Armstrong DO) (unknown) (no (unknown) (unknown) Sodium 135 L (units (u nknown) date) unknown) (unknown) (no (unknown) (unknown) Sodium 137 (units (unk nown) date) unknown) (unknown) (no (unknown) (unknown) Sodium (units (unkno wn) date) unknown) (unknown) (no (unknown) (unknown) Staph skin (units (unk nown) date) infection unknown) (unknown) (no (unknown) (unknown) Subjective (units (unk nown) date) unknown) (unknown) (no (unknown) (unknown) Surgical History (units (unknown) date) (Reviewed 01/21/22 unknown) @ 21:03 by Benito Simon MD) (unknown) (no (unknown) (unknown) Tachycardia (units (un known) date) unknown) (unknown) (no (unknown) (unknown) Temperature 98.5 (units (unknown) date) F 97.9 F unknown) (unknown) (no (unknown) (unknown) Temperature 98.9 (units (unknown) date) F 97.9 F unknown) (unknown) (no (unknown) (unknown) Temperature 98.9 (units (unknown) date) F 98.9 F 99.6 F unknown) (unknown) (no (unknown) (unknown) Temperature 98.9 (units (unknown) date) F unknown) (unknown) (no (unknown) (unknown) Temperature (units (un known) date) unknown) (unknown) (no (unknown) (unknown) Time Spent With (units (unknown) date) Patient unknown) (unknown) (no (unknown) (unknown) Total Bilirubin (units (unknown) date) 0.4 unknown) (unknown) (no (unknown) (unknown) Total Bilirubin (units (unknown) date) unknown) (unknown) (no (unknown) (unknown) Total Creatine (units (unknown) date) Kinase 41 unknown) (unknown) (no (unknown) (unknown) Total Creatine (units (unknown) date) Kinase unknown) (unknown) (no (unknown) (unknown) Total Protein 5.4 (units (unknown) date) L unknown) (unknown) (no (unknown) (unknown) Total Protein (units ( unknown) date) unknown) (unknown) (no (unknown) (unknown) Troponin I < (units (u nknown) date) 0.012 unknown) (unknown) (no (unknown) (unknown) Troponin I (units (unk nown) date) unknown) (unknown) (no (unknown) (unknown) Vital Signs (units (un known) date) unknown) (unknown) (no (unknown) (unknown) WBC 11.2 H (units (unk nown) date) unknown) (unknown) (no (unknown) (unknown) WBC 11.5 H (units (unk nown) date) unknown) (unknown) (no (unknown) (unknown) WBC (units (unkno wn) date) unknown) (unknown) (no (unknown) (unknown) [Embedded Image (units (unknown) date) Not Available] unknown) (unknown) (no (unknown) (unknown) alcohol intake: (units (unknown) date) current unknown) (unknown) (no (unknown) (unknown) attitude thought (units (unknown) date) context and unknown) judgment are appropriate for age. (unknown) (no (unknown) (unknown) clear and mucous (units (unknown) date) membranes are dry. unknown) (unknown) (no (unknown) (unknown) close monitoring (units (unknown) date) unknown) (unknown) (no (unknown) (unknown) deformity. (units (unk nown) date) unknown) (unknown) (no (unknown) (unknown) equal chest rise (units (unknown) date) bilaterally. unknown) (unknown) (no (unknown) (unknown) no distress at (units (unknown) date) this time. Very unknown) pale. (unknown) (no (unknown) (unknown) no gross deficits (units (unknown) date) noted of cranial unknown) nerves. (unknown) (no (unknown) (unknown) petechiae.? (units (un known) date) unknown) (unknown) (no (unknown) (unknown) quit status: has (units (unknown) date) quit before unknown) (unknown) (no (unknown) (unknown) required (units (unkno wn) date) unknown) (unknown) (no (unknown) (unknown) secondary to (units (u nknown) date) NSAID use unknown) (unknown) (no (unknown) (unknown) therapy given (units ( unknown) date) COPD. unknown) (unknown) (no (unknown) (unknown) today; this time (units (unknown) date) is exclusive of unknown) procedural time. Result panel 60 (unknown) (no (unknown) (unknown) (no value) (units (unk nown) date) unknown) (unknown) (no (unknown) (unknown) (past 8 hours): (units (unknown) date) unknown) (unknown) (no (unknown) (unknown) - TTE (units (unkno wn) date) unknown) (unknown) (no (unknown) (unknown) - cld okay for (units (unknown) date) today unknown) (unknown) (no (unknown) (unknown) - consider steroids (unit s (unknown) date) for COPD unknown) (unknown) (no (unknown) (unknown) - continue IV PPI (units (unknown) date) BID, holding home AC unknown) (unknown) (no (unknown) (unknown) - continue lasix (units (unknown) date) prn, continue to unknown) wean O2, goal O2 88-96% while on supplemental (unknown) (no (unknown) (unknown) - continue (units (unk nown) date) repletion as needed. unknown) likely lower with lasix administration (unknown) (no (unknown) (unknown) - general surgery (units (unknown) date) plans for unknown) EGD/colonoscopy tomorrow (unknown) (no (unknown) (unknown) - hold home (units (un known) date) anticoagulation in unknown) setting of bleeding. (unknown) (no (unknown) (unknown) - improved today (units (unknown) date) restarted metoprolol unknown) but will hold other antihypertensives for (unknown) (no (unknown) (unknown) - may have chronic (units (unknown) date) component given unknown) obesity hypoventilation? (unknown) (no (unknown) (unknown) - possibly (units (unk nown) date) secondary to COPD, unknown) acute heart failure with blood administration (unknown) (no (unknown) (unknown) - s/p 5 U PRBC, 5th (unit s (unknown) date) running this AM, unknown) check another h/h tonight. (unknown) (no (unknown) (unknown) - slight (units (unkno wn) date) tachycardia today, unknown) restart home beta funmilayo metoprolol at 12.5 mg BID (unknown) (no (unknown) (unknown) -DuoNebs as needed, (unit s (unknown) date) continuous pulse ox, unknown) O2 as required for O2 requirements as (unknown) (no (unknown) (unknown) 01:54 01/22/22 (units (unknown) date) unknown) (unknown) (no (unknown) (unknown) 02:21 01/22/22 (units (unknown) date) unknown) (unknown) (no (unknown) (unknown) 02:37 (units (unkno wn) date) unknown) (unknown) (no (unknown) (unknown) 04:00 (units (unkno wn) date) unknown) (unknown) (no (unknown) (unknown) 04:54 01/22/22 (units (unknown) date) unknown) (unknown) (no (unknown) (unknown) 04:55 01/22/22 (units (unknown) date) unknown) (unknown) (no (unknown) (unknown) 05:55 01/22/22 (units (unknown) date) unknown) (unknown) (no (unknown) (unknown) 06:05 06:05 (units (un known) date) unknown) (unknown) (no (unknown) (unknown) 07:00 (units (unkno wn) date) unknown) (unknown) (no (unknown) (unknown) 07:30 01/22/22 (units (unknown) date) unknown) (unknown) (no (unknown) (unknown) 07:51 (units (unkno wn) date) unknown) (unknown) (no (unknown) (unknown) 08:00 01/22/22 (units (unknown) date) unknown) (unknown) (no (unknown) (unknown) 08:15 01/22/22 (units (unknown) date) unknown) (unknown) (no (unknown) (unknown) 09:00 01/22/22 (units (unknown) date) unknown) (unknown) (no (unknown) (unknown) 09:30 (units (unkno wn) date) unknown) (unknown) (no (unknown) (unknown) 01/21/22 01/21/22 (units (unknown) date) 01/21/22 unknown) (unknown) (no (unknown) (unknown) 01/22/22 06:05 (units (unknown) date) unknown) (unknown) (no (unknown) (unknown) 01/22/22 01/22/22 (units (unknown) date) unknown) (unknown) (no (unknown) (unknown) 01/22/22 (units (unkno wn) date) unknown) (unknown) (no (unknown) (unknown) 14:50 14:50 14:50 (units (unknown) date) unknown) (unknown) (no (unknown) (unknown) 14:50 18:27 21:52 (units (unknown) date) unknown) (unknown) (no (unknown) (unknown) [id number] (units (unkno wn) date) unknown) (unknown) (no (unknown) (unknown) ALT 14 (units (unkno wn) date) unknown) (unknown) (no (unknown) (unknown) ALT (units (unkno wn) date) unknown) (unknown) (no (unknown) (unknown) APTT 25 L (units (unkn own) date) unknown) (unknown) (no (unknown) (unknown) APTT (units (unkno wn) date) unknown) (unknown) (no (unknown) (unknown) AST 45 H (units (unkno wn) date) unknown) (unknown) (no (unknown) (unknown) AST (units (unkno wn) date) unknown) (unknown) (no (unknown) (unknown) Abdomen: S NT ND. (units (unknown) date) unknown) (unknown) (no (unknown) (unknown) Abdominal pain (units (unknown) date) unknown) (unknown) (no (unknown) (unknown) Acute respiratory (units (unknown) date) failure with Hypoxia unknown) (unknown) (no (unknown) (unknown) Acute symptomatic (units (unknown) date) blood loss anemia unknown) most likely related to upper GI bleed (unknown) (no (unknown) (unknown) Age/Sex: 56 / F (units (unknown) date) unknown) (unknown) (no (unknown) (unknown) Albumin 2.9 L (units ( unknown) date) unknown) (unknown) (no (unknown) (unknown) Albumin (units (unkno wn) date) unknown) (unknown) (no (unknown) (unknown) Albumin/Globulin (units (unknown) date) Ratio 1.2 unknown) (unknown) (no (unknown) (unknown) Albumin/Globulin (units (unknown) date) Ratio unknown) (unknown) (no (unknown) (unknown) Alcohol use (units (un known) date) unknown) (unknown) (no (unknown) (unknown) Alkaline (units (unkno wn) date) Phosphatase 39 unknown) (unknown) (no (unknown) (unknown) Alkaline (units (unkno wn) date) Phosphatase unknown) (unknown) (no (unknown) (unknown) Allergic dermatitis (unit s (unknown) date) of eyelids of both unknown) eyes (unknown) (no (unknown) (unknown) Anemia (units (unkno wn) date) unknown) (unknown) (no (unknown) (unknown) Anisocytosis 2+ H (units (unknown) date) unknown) (unknown) (no (unknown) (unknown) Anisocytosis (units (u nknown) date) unknown) (unknown) (no (unknown) (unknown) Antibody Screen (units (unknown) date) Negative unknown) (unknown) (no (unknown) (unknown) Antibody Screen (units (unknown) date) unknown) (unknown) (no (unknown) (unknown) Arthritis (Unknown) (unit s (unknown) date) unknown) (unknown) (no (unknown) (unknown) Assessment + Plan (units (unknown) date) narrative: unknown) (unknown) (no (unknown) (unknown) Assessment + Plan (units (unknown) date) unknown) (unknown) (no (unknown) (unknown) Asthma (Unknown) (units (unknown) date) unknown) (unknown) (no (unknown) (unknown) Asthma (units (unkno wn) date) unknown) (unknown) (no (unknown) (unknown) BUN 26 H (units (unkno wn) date) unknown) (unknown) (no (unknown) (unknown) BUN 37 H (units (unkno wn) date) unknown) (unknown) (no (unknown) (unknown) BUN (units (unkno wn) date) unknown) (unknown) (no (unknown) (unknown) BUN/Creatinine (units (unknown) date) Ratio 31.0 H unknown) (unknown) (no (unknown) (unknown) BUN/Creatinine (units (unknown) date) Ratio 47.4 H unknown) (unknown) (no (unknown) (unknown) BUN/Creatinine (units (unknown) date) Ratio unknown) (unknown) (no (unknown) (unknown) Baso # (Auto) 100 (units (unknown) date) unknown) (unknown) (no (unknown) (unknown) Baso # (Auto) (units ( unknown) date) unknown) (unknown) (no (unknown) (unknown) Baso % (Auto) 0.6 (units (unknown) date) unknown) (unknown) (no (unknown) (unknown) Baso % (Auto) (units ( unknown) date) unknown) (unknown) (no (unknown) (unknown) Blood Pressure (units (unknown) date) 107/57 L 118/62 unknown) 108/58 L (unknown) (no (unknown) (unknown) Blood Pressure (units (unknown) date) 113/72 117/71 unknown) (unknown) (no (unknown) (unknown) Blood Pressure (units (unknown) date) 113/72 unknown) (unknown) (no (unknown) (unknown) Blood Pressure (units (unknown) date) 127/70 117/71 unknown) (unknown) (no (unknown) (unknown) Blood Pressure (units (unknown) date) unknown) (unknown) (no (unknown) (unknown) Blood Type O (units (u nknown) date) Negative unknown) (unknown) (no (unknown) (unknown) Blood Type (units (unk nown) date) unknown) (unknown) (no (unknown) (unknown) CK-MB (CK-2) Rel (units (unknown) date) Index TNP unknown) (unknown) (no (unknown) (unknown) CK-MB (CK-2) Rel (units (unknown) date) Index unknown) (unknown) (no (unknown) (unknown) CK-MB (CK-2) TNP (units (unknown) date) unknown) (unknown) (no (unknown) (unknown) CK-MB (CK-2) (units (u nknown) date) unknown) (unknown) (no (unknown) (unknown) COPD (chronic (units ( unknown) date) obstructive unknown) pulmonary disease) (unknown) (no (unknown) (unknown) COPD with mild (units (unknown) date) exacerbation unknown) (unknown) (no (unknown) (unknown) COVID-19 status: (units (unknown) date) Negative unknown) (unknown) (no (unknown) (unknown) COVID-19 (units (unkno wn) date) unknown) (unknown) (no (unknown) (unknown) Calcium 7.6 L (units ( unknown) date) unknown) (unknown) (no (unknown) (unknown) Calcium 7.9 L (units ( unknown) date) unknown) (unknown) (no (unknown) (unknown) Calcium (units (unkno wn) date) unknown) (unknown) (no (unknown) (unknown) Carbon Dioxide 28 (units (unknown) date) unknown) (unknown) (no (unknown) (unknown) Carbon Dioxide 36 H (unit s (unknown) date) unknown) (unknown) (no (unknown) (unknown) Carbon Dioxide (units (unknown) date) unknown) (unknown) (no (unknown) (unknown) Cardio:?RRR, 2-3/6 (units (unknown) date) systolic murmur, no unknown) rubs or gallops. (unknown) (no (unknown) (unknown) Carpal tunnel (units ( unknown) date) syndrome (-2017) unknown) (unknown) (no (unknown) (unknown) Chest:? Normal AP (units (unknown) date) diameter and contour unknown) without kyphoscoliosis, no tachypnea, (unknown) (no (unknown) (unknown) Chloride 100 (units (u nknown) date) unknown) (unknown) (no (unknown) (unknown) Chloride 94 L (units ( unknown) date) unknown) (unknown) (no (unknown) (unknown) Chloride (units (unkno wn) date) unknown) (unknown) (no (unknown) (unknown) Chronic atrial (units (unknown) date) fibrillation on unknown) anticoagulation (unknown) (no (unknown) (unknown) Chronic atrial (units (unknown) date) fibrillation unknown) (unknown) (no (unknown) (unknown) Continues to feel (units (unknown) date) quite tired and unknown) weak, but somewhat less short of breath today. (unknown) (no (unknown) (unknown) Cor pulmonale (units ( unknown) date) (chronic) unknown) (unknown) (no (unknown) (unknown) Creatinine 0.78 (units (unknown) date) unknown) (unknown) (no (unknown) (unknown) Creatinine 0.84 (units (unknown) date) unknown) (unknown) (no (unknown) (unknown) Creatinine (units (unk nown) date) unknown) (unknown) (no (unknown) (unknown) Critical Care time: (unit s (unknown) date) unknown) (unknown) (no (unknown) (unknown) Crossmatch See (units (unknown) date) Detail unknown) (unknown) (no (unknown) (unknown) Crossmatch (units (unk nown) date) unknown) (unknown) (no (unknown) (unknown) : 1965 (units (unknown) date) Acct:[id number] unknown) (unknown) (no (unknown) (unknown) Date Patient Seen: (units (unknown) date) 01/22/22 unknown) (unknown) (no (unknown) (unknown) Date of Service: (units (unknown) date) 01/21/22 unknown) (unknown) (no (unknown) (unknown) Eczema (units (unkno wn) date) unknown) (unknown) (no (unknown) (unknown) Eos # (Auto) 0 (units (unknown) date) unknown) (unknown) (no (unknown) (unknown) Eos # (Auto) (units (u nknown) date) unknown) (unknown) (no (unknown) (unknown) Eos % (Auto) 0.1 L (units (unknown) date) unknown) (unknown) (no (unknown) (unknown) Eos % (Auto) 0.2 L (units (unknown) date) unknown) (unknown) (no (unknown) (unknown) Eos % (Auto) (units (u nknown) date) unknown) (unknown) (no (unknown) (unknown) Estimated GFR > 60 (units (unknown) date) unknown) (unknown) (no (unknown) (unknown) Estimated GFR (units ( unknown) date) unknown) (unknown) (no (unknown) (unknown) Ethyl Alcohol < 10 (units (unknown) date) unknown) (unknown) (no (unknown) (unknown) Ethyl Alcohol (units ( unknown) date) unknown) (unknown) (no (unknown) (unknown) Exam Narrative: (units (unknown) date) unknown) (unknown) (no (unknown) (unknown) Exam (units (unkno wn) date) unknown) (unknown) (no (unknown) (unknown) Extremities: No (units (unknown) date) edema or joint unknown) effusions. No cyanosis or clubbing. (unknown) (no (unknown) (unknown) Family History (units (unknown) date) (Reviewed 01/21/22 @ unknown) 21:03 by Benito Simon MD) (unknown) (no (unknown) (unknown) Fraction of (units (un known) date) Inspired Oxygen 40 unknown) (unknown) (no (unknown) (unknown) Fraction of (units (un known) date) Inspired Oxygen unknown) (unknown) (no (unknown) (unknown) General:? Patient (units (unknown) date) is well developed unknown) and well nourished, obese with BMI 42.6. in (unknown) (no (unknown) (unknown) Globulin 2.5 (units (u nknown) date) unknown) (unknown) (no (unknown) (unknown) Globulin (units (unkno wn) date) unknown) (unknown) (no (unknown) (unknown) Glucose 113 H (units ( unknown) date) unknown) (unknown) (no (unknown) (unknown) Glucose 122 H (units ( unknown) date) unknown) (unknown) (no (unknown) (unknown) Glucose (units (unkno wn) date) unknown) (unknown) (no (unknown) (unknown) HEENT:? (units (unkno wn) date) Normocephalic, unknown) atraumatic, extraocular muscles intact, oral pharynx is (unknown) (no (unknown) (unknown) Hct 12.8 L* (units (un known) date) unknown) (unknown) (no (unknown) (unknown) Hct 18.1 L* (units (un known) date) unknown) (unknown) (no (unknown) (unknown) Hct 23.7 L (units (unk nown) date) unknown) (unknown) (no (unknown) (unknown) Hct (units (unkno wn) date) unknown) (unknown) (no (unknown) (unknown) Hgb 3.9 L* (units (unk nown) date) unknown) (unknown) (no (unknown) (unknown) Hgb 5.8 L* (units (unk nown) date) unknown) (unknown) (no (unknown) (unknown) Hgb 7.8 L (units (unkn own) date) unknown) (unknown) (no (unknown) (unknown) Hgb (units (unkno wn) date) unknown) (unknown) (no (unknown) (unknown) History of (units (unk nown) date) hysterectomy for unknown) cancer (unknown) (no (unknown) (unknown) Hold (units (unkno wn) date) anticoagulation unknown) given active bleeding, SCDs for DVT prophylaxis, Protonix (unknown) (no (unknown) (unknown) Hypochromasia 1+ H (units (unknown) date) D unknown) (unknown) (no (unknown) (unknown) Hypochromasia 3+ H (units (unknown) date) unknown) (unknown) (no (unknown) (unknown) Hypochromasia (units ( unknown) date) unknown) (unknown) (no (unknown) (unknown) Hypokalemia (units (un known) date) unknown) (unknown) (no (unknown) (unknown) Hypotension -most (units (unknown) date) likely secondary to unknown) hypovolemia due to GI bleed -continue (unknown) (no (unknown) (unknown) I spent a total of (units (unknown) date) [] minutes of unknown) critical care time on this patient's care (unknown) (no (unknown) (unknown) INR 1.6 H (units (unkn own) date) unknown) (unknown) (no (unknown) (unknown) INR (units (unkno wn) date) unknown) (unknown) (no (unknown) (unknown) IV for GI (units (unkn own) date) prophylaxis unknown) (unknown) (no (unknown) (unknown) Impetigo (units (unkno wn) date) unknown) (unknown) (no (unknown) (unknown) Incontinence (units (u nknown) date) unknown) (unknown) (no (unknown) (unknown) Interval history: (units (unknown) date) unknown) (unknown) (no (unknown) (unknown) [facility] (units (unknown) date) [address] unknown) [place] [address] (unknown) (no (unknown) (unknown) Laboratory Results (units (unknown) date) - last 24 hr unknown) (unknown) (no (unknown) (unknown) Labs (units (unkno wn) date) unknown) (unknown) (no (unknown) (unknown) Labs: (units (unkno wn) date) unknown) (unknown) (no (unknown) (unknown) Lungs:? CTA b/l no (units (unknown) date) wheezing rhonchi or unknown) rales. (unknown) (no (unknown) (unknown) Lymph # (Auto) 1700 (unit s (unknown) date) unknown) (unknown) (no (unknown) (unknown) Lymph # (Auto) (units (unknown) date) unknown) (unknown) (no (unknown) (unknown) Lymph % (Auto) 14.7 (unit s (unknown) date) L unknown) (unknown) (no (unknown) (unknown) Lymph % (Auto) 15.4 (unit s (unknown) date) L unknown) (unknown) (no (unknown) (unknown) Lymph % (Auto) (units (unknown) date) unknown) (unknown) (no (unknown) (unknown) MCH 23.0 L (units (unk nown) date) unknown) (unknown) (no (unknown) (unknown) MCH 26.3 (units (unkno wn) date) unknown) (unknown) (no (unknown) (unknown) MCH (units (unkno wn) date) unknown) (unknown) (no (unknown) (unknown) MCHC 30.3 (units (unkn own) date) unknown) (unknown) (no (unknown) (unknown) MCHC 32.8 (units (unkn own) date) unknown) (unknown) (no (unknown) (unknown) MCHC (units (unkno wn) date) unknown) (unknown) (no (unknown) (unknown) MCV 75.9 L (units (unk nown) date) unknown) (unknown) (no (unknown) (unknown) MCV 80.2 D (units (unk nown) date) unknown) (unknown) (no (unknown) (unknown) MCV (units (unkno wn) date) unknown) (unknown) (no (unknown) (unknown) Magnesium 1.7 (units ( unknown) date) unknown) (unknown) (no (unknown) (unknown) Magnesium (units (unkn own) date) unknown) (unknown) (no (unknown) (unknown) Medical History (units (unknown) date) (Reviewed 01/21/22 @ unknown) 21:03 by Benito Simon MD) (unknown) (no (unknown) (unknown) Lyon # (Auto) 1100 (units (unknown) date) H unknown) (unknown) (no (unknown) (unknown) Lyon # (Auto) 1700 (units (unknown) date) H unknown) (unknown) (no (unknown) (unknown) Lyon # (Auto) (units ( unknown) date) unknown) (unknown) (no (unknown) (unknown) Lyon % (Auto) 14.9 (units (unknown) date) H unknown) (unknown) (no (unknown) (unknown) Lyon % (Auto) 9.7 (units (unknown) date) unknown) (unknown) (no (unknown) (unknown) Lyon % (Auto) (units ( unknown) date) unknown) (unknown) (no (unknown) (unknown) Morbid obesity due (units (unknown) date) to excess calories unknown) (unknown) (no (unknown) (unknown) Mother CVA (unit s (unknown) date) (cerebral vascular unknown) accident) (unknown) (no (unknown) (unknown) Musculoskeletal:? (units (unknown) date) Muscle strength and unknown) tone are equal within normal limits, no (unknown) (no (unknown) (unknown) NT-Pro-B Natriuret (units (unknown) date) Pep 637 H unknown) (unknown) (no (unknown) (unknown) NT-Pro-B Natriuret (units (unknown) date) Pep unknown) (unknown) (no (unknown) (unknown) Narrative (units (unkn own) date) unknown) (unknown) (no (unknown) (unknown) Nasal Screen MRSA (units (unknown) date) (PCR) Positive for unknown) mrsa H (unknown) (no (unknown) (unknown) Nasal Screen MRSA (units (unknown) date) (PCR) unknown) (unknown) (no (unknown) (unknown) Neck: supple and (units (unknown) date) symmetric, trachea unknown) is midline, no cervical adenopathy. (unknown) (no (unknown) (unknown) Neuro:? Alert and (units (unknown) date) orientated x3,? unknown) sensation to touch intact in all extremities, (unknown) (no (unknown) (unknown) Neut # (Auto) 7700 (units (unknown) date) H unknown) (unknown) (no (unknown) (unknown) Neut # (Auto) 8600 (units (unknown) date) H unknown) (unknown) (no (unknown) (unknown) Neut # (Auto) (units ( unknown) date) unknown) (unknown) (no (unknown) (unknown) Neut % (Auto) 68.9 (units (unknown) date) unknown) (unknown) (no (unknown) (unknown) Neut % (Auto) 74.9 (units (unknown) date) unknown) (unknown) (no (unknown) (unknown) Neut % (Auto) (units ( unknown) date) unknown) (unknown) (no (unknown) (unknown) Nucleated RBCs 3 H (units (unknown) date) unknown) (unknown) (no (unknown) (unknown) Nucleated RBCs (units (unknown) date) unknown) (unknown) (no (unknown) (unknown) 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 pulmonary hypertension (unknown) (no (unknown) (unknown) Objective (units (unkn own) date) unknown) (unknown) (no (unknown) (unknown) Oxygen Delivery (units (unknown) date) Method Nasal Cannula unknown) Oximask (unknown) (no (unknown) (unknown) Oxygen Delivery (units (unknown) date) Method Oximask unknown) (unknown) (no (unknown) (unknown) Oxygen Delivery (units (unknown) date) Method unknown) (unknown) (no (unknown) (unknown) Oxygen Flow Rate 5 (units (unknown) date) 5 unknown) (unknown) (no (unknown) (unknown) Oxygen Flow Rate 5 (units (unknown) date) unknown) (unknown) (no (unknown) (unknown) Oxygen Flow Rate (units (unknown) date) unknown) (unknown) (no (unknown) (unknown) PFSH (units (unkno wn) date) unknown) (unknown) (no (unknown) (unknown) PT 18.6 H (units (unkn own) date) unknown) (unknown) (no (unknown) (unknown) PT (units (unkno wn) date) unknown) (unknown) (no (unknown) (unknown) Patient is full (units (unknown) date) code, surrogate is unknown) son. (unknown) (no (unknown) (unknown) Patient: (units (unkno wn) date) Rosalba Pabon MR#: unknown) [id number] (unknown) (no (unknown) (unknown) Plt Count 274 (units ( unknown) date) unknown) (unknown) (no (unknown) (unknown) Plt Count 331 (units ( unknown) date) unknown) (unknown) (no (unknown) (unknown) Plt Count (units (unkn own) date) unknown) (unknown) (no (unknown) (unknown) Poikilocytosis 1+ H (unit s (unknown) date) unknown) (unknown) (no (unknown) (unknown) Poikilocytosis (units (unknown) date) unknown) (unknown) (no (unknown) (unknown) Polychromasia 1+ H (units (unknown) date) unknown) (unknown) (no (unknown) (unknown) Polychromasia (units ( unknown) date) unknown) (unknown) (no (unknown) (unknown) Potassium 3.0 L (units (unknown) date) unknown) (unknown) (no (unknown) (unknown) Potassium 3.6 (units ( unknown) date) unknown) (unknown) (no (unknown) (unknown) Potassium (units (unkn own) date) unknown) (unknown) (no (unknown) (unknown) Progress Note (units ( unknown) date) unknown) (unknown) (no (unknown) (unknown) Provider: (units (unkn own) date) Stevo Lewis D.O. unknown) (unknown) (no (unknown) (unknown) Psych:? Patient has (unit s (unknown) date) a well-kept unknown) appearance, appropriate affect, mental status (unknown) (no (unknown) (unknown) Pulmonary (units (unkn own) date) hypertension unknown) (unknown) (no (unknown) (unknown) Pulse Oximetry 92 (units (unknown) date) 93 unknown) (unknown) (no (unknown) (unknown) Pulse Oximetry 93 (units (unknown) date) unknown) (unknown) (no (unknown) (unknown) Pulse Oximetry 94 (units (unknown) date) unknown) (unknown) (no (unknown) (unknown) Pulse Oximetry (units (unknown) date) unknown) (unknown) (no (unknown) (unknown) Pulse Rate 103 H (units (unknown) date) 103 H unknown) (unknown) (no (unknown) (unknown) Pulse Rate 107 H (units (unknown) date) unknown) (unknown) (no (unknown) (unknown) Pulse Rate 108 H (units (unknown) date) 111 H 108 H unknown) (unknown) (no (unknown) (unknown) Pulse Rate 109 H (units (unknown) date) 104 H 103 H unknown) (unknown) (no (unknown) (unknown) Pulse Rate (units (unk nown) date) unknown) (unknown) (no (unknown) (unknown) RBC 1.68 L (units (unk nown) date) unknown) (unknown) (no (unknown) (unknown) RBC 2.96 L (units (unk nown) date) unknown) (unknown) (no (unknown) (unknown) RBC Morphology Not (units (unknown) date) Reportable unknown) (unknown) (no (unknown) (unknown) RBC Morphology See (units (unknown) date) below unknown) (unknown) (no (unknown) (unknown) RBC Morphology (units (unknown) date) unknown) (unknown) (no (unknown) (unknown) RBC (units (unkno wn) date) unknown) (unknown) (no (unknown) (unknown) RDW 21.4 H (units (unk nown) date) unknown) (unknown) (no (unknown) (unknown) RDW 21.9 H (units (unk nown) date) unknown) (unknown) (no (unknown) (unknown) RDW (units (unkno wn) date) unknown) (unknown) (no (unknown) (unknown) Respiratory Rate 16 (unit s (unknown) date) 18 20 unknown) (unknown) (no (unknown) (unknown) Respiratory Rate 16 (unit s (unknown) date) 20 21 unknown) (unknown) (no (unknown) (unknown) Respiratory Rate 20 (unit s (unknown) date) 20 unknown) (unknown) (no (unknown) (unknown) Respiratory Rate 20 (unit s (unknown) date) unknown) (unknown) (no (unknown) (unknown) Respiratory Rate (units (unknown) date) unknown) (unknown) (no (unknown) (unknown) Restless leg (units (u nknown) date) syndrome unknown) (unknown) (no (unknown) (unknown) Result Diagrams: (units (unknown) date) unknown) (unknown) (no (unknown) (unknown) Right-sided low (units (unknown) date) back pain with unknown) sciatica (unknown) (no (unknown) (unknown) SARS-CoV-2 (PCR) (units (unknown) date) Negative unknown) (unknown) (no (unknown) (unknown) SARS-CoV-2 (PCR) (units (unknown) date) unknown) (unknown) (no (unknown) (unknown) SaO2/FiO2 Ratio 232 (unit s (unknown) date) unknown) (unknown) (no (unknown) (unknown) She is thirsty this (unit s (unknown) date) morning. unknown) (unknown) (no (unknown) (unknown) Signed By: (units (unk nown) date) unknown) (unknown) (no (unknown) (unknown) Skin:? Pale,? Warm (units (unknown) date) to touch,dry and unknown) intact without rashes, ulcerations or (unknown) (no (unknown) (unknown) Smoking Status: (units (unknown) date) Current every day unknown) smoker (unknown) (no (unknown) (unknown) Social History (units (unknown) date) (Reviewed 01/21/22 @ unknown) 15:14 by Lilian Armstrong DO) (unknown) (no (unknown) (unknown) Sodium 135 L (units (u nknown) date) unknown) (unknown) (no (unknown) (unknown) Sodium 137 (units (unk nown) date) unknown) (unknown) (no (unknown) (unknown) Sodium (units (unkno wn) date) unknown) (unknown) (no (unknown) (unknown) Staph skin (units (unk nown) date) infection unknown) (unknown) (no (unknown) (unknown) Subjective (units (unk nown) date) unknown) (unknown) (no (unknown) (unknown) Surgical History (units (unknown) date) (Reviewed 01/21/22 @ unknown) 21:03 by Benito Simon MD) (unknown) (no (unknown) (unknown) Tachycardia (units (un known) date) unknown) (unknown) (no (unknown) (unknown) Temperature 98.5 F (units (unknown) date) 97.9 F unknown) (unknown) (no (unknown) (unknown) Temperature 98.9 F (units (unknown) date) 97.9 F unknown) (unknown) (no (unknown) (unknown) Temperature 98.9 F (units (unknown) date) 98.9 F 99.6 F unknown) (unknown) (no (unknown) (unknown) Temperature 98.9 F (units (unknown) date) unknown) (unknown) (no (unknown) (unknown) Temperature (units (un known) date) unknown) (unknown) (no (unknown) (unknown) Time Spent With (units (unknown) date) Patient unknown) (unknown) (no (unknown) (unknown) Total Bilirubin 0.4 (unit s (unknown) date) unknown) (unknown) (no (unknown) (unknown) Total Bilirubin (units (unknown) date) unknown) (unknown) (no (unknown) (unknown) Total Creatine (units (unknown) date) Kinase 41 unknown) (unknown) (no (unknown) (unknown) Total Creatine (units (unknown) date) Kinase unknown) (unknown) (no (unknown) (unknown) Total Protein 5.4 L (unit s (unknown) date) unknown) (unknown) (no (unknown) (unknown) Total Protein (units ( unknown) date) unknown) (unknown) (no (unknown) (unknown) Troponin I < 0.012 (units (unknown) date) unknown) (unknown) (no (unknown) (unknown) Troponin I (units (unk nown) date) unknown) (unknown) (no (unknown) (unknown) Vital Signs (units (un known) date) unknown) (unknown) (no (unknown) (unknown) WBC 11.2 H (units (unk nown) date) unknown) (unknown) (no (unknown) (unknown) WBC 11.5 H (units (unk nown) date) unknown) (unknown) (no (unknown) (unknown) WBC (units (unkno wn) date) unknown) (unknown) (no (unknown) (unknown) [Embedded Image Not (unit s (unknown) date) Available] unknown) (unknown) (no (unknown) (unknown) alcohol intake: (units (unknown) date) current unknown) (unknown) (no (unknown) (unknown) alkalosis. (units (unk nown) date) unknown) (unknown) (no (unknown) (unknown) attitude thought (units (unknown) date) context and judgment unknown) are appropriate for age. (unknown) (no (unknown) (unknown) clear and mucous (units (unknown) date) membranes are dry. unknown) (unknown) (no (unknown) (unknown) close monitoring (units (unknown) date) unknown) (unknown) (no (unknown) (unknown) deformity. (units (unk nown) date) unknown) (unknown) (no (unknown) (unknown) equal chest rise (units (unknown) date) bilaterally. unknown) (unknown) (no (unknown) (unknown) instead of usual 50 (unit s (unknown) date) mg BID. unknown) (unknown) (no (unknown) (unknown) no distress at this (unit s (unknown) date) time. Very pale. unknown) (unknown) (no (unknown) (unknown) no gross deficits (units (unknown) date) noted of cranial unknown) nerves. (unknown) (no (unknown) (unknown) noted below. (units (u nknown) date) unknown) (unknown) (no (unknown) (unknown) now. (units (unkno wn) date) unknown) (unknown) (no (unknown) (unknown) petechiae.? (units (un known) date) unknown) (unknown) (no (unknown) (unknown) quit status: has (units (unknown) date) quit before unknown) (unknown) (no (unknown) (unknown) secondary to NSAID (units (unknown) date) use unknown) (unknown) (no (unknown) (unknown) therapy given COPD. (unit s (unknown) date) Increase in CO2 on unknown) chemistry today, possibly to contraction (unknown) (no (unknown) (unknown) today; this time is (unit s (unknown) date) exclusive of unknown) procedural time. Result panel 61 (unknown) (no (unknown) (unknown) (no value) (units (unk nown) date) unknown) (unknown) (no (unknown) (unknown) (past 8 hours): (units (unknown) date) unknown) (unknown) (no (unknown) (unknown) - TTE (units (unkno wn) date) unknown) (unknown) (no (unknown) (unknown) - cld okay for (units (unknown) date) today unknown) (unknown) (no (unknown) (unknown) - consider steroids (unit s (unknown) date) for COPD unknown) (unknown) (no (unknown) (unknown) - continue IV PPI (units (unknown) date) BID, holding home AC unknown) (unknown) (no (unknown) (unknown) - continue lasix (units (unknown) date) prn, continue to unknown) wean O2, goal O2 88-96% while on supplemental (unknown) (no (unknown) (unknown) - continue (units (unk nown) date) repletion as needed. unknown) likely lower with lasix administration (unknown) (no (unknown) (unknown) - general surgery (units (unknown) date) plans for unknown) EGD/colonoscopy tomorrow (unknown) (no (unknown) (unknown) - hold home (units (un known) date) anticoagulation in unknown) setting of bleeding. (unknown) (no (unknown) (unknown) - improved today (units (unknown) date) restarted metoprolol unknown) but will hold other antihypertensives for (unknown) (no (unknown) (unknown) - may have chronic (units (unknown) date) component given unknown) obesity hypoventilation? (unknown) (no (unknown) (unknown) - possibly (units (unk nown) date) secondary to COPD, unknown) acute heart failure with blood administration (unknown) (no (unknown) (unknown) - s/p 5 U PRBC, 5th (unit s (unknown) date) running this AM, unknown) check another h/h tonight. (unknown) (no (unknown) (unknown) - slight (units (unkno wn) date) tachycardia today, unknown) restart home beta funmilayo metoprolol at 12.5 mg BID (unknown) (no (unknown) (unknown) -DuoNebs as needed, (unit s (unknown) date) continuous pulse ox, unknown) O2 as required for O2 requirements as (unknown) (no (unknown) (unknown) 01:54 01/22/22 (units (unknown) date) unknown) (unknown) (no (unknown) (unknown) 02:21 01/22/22 (units (unknown) date) unknown) (unknown) (no (unknown) (unknown) 02:37 (units (unkno wn) date) unknown) (unknown) (no (unknown) (unknown) 04:00 (units (unkno wn) date) unknown) (unknown) (no (unknown) (unknown) 04:54 01/22/22 (units (unknown) date) unknown) (unknown) (no (unknown) (unknown) 04:55 01/22/22 (units (unknown) date) unknown) (unknown) (no (unknown) (unknown) 05:55 01/22/22 (units (unknown) date) unknown) (unknown) (no (unknown) (unknown) 06:05 06:05 (units (un known) date) unknown) (unknown) (no (unknown) (unknown) 07:00 (units (unkno wn) date) unknown) (unknown) (no (unknown) (unknown) 07:30 01/22/22 (units (unknown) date) unknown) (unknown) (no (unknown) (unknown) 07:51 (units (unkno wn) date) unknown) (unknown) (no (unknown) (unknown) 08:00 01/22/22 (units (unknown) date) unknown) (unknown) (no (unknown) (unknown) 08:15 01/22/22 (units (unknown) date) unknown) (unknown) (no (unknown) (unknown) 09:00 01/22/22 (units (unknown) date) unknown) (unknown) (no (unknown) (unknown) 09:30 (units (unkno wn) date) unknown) (unknown) (no (unknown) (unknown) 01/21/22 01/21/22 (units (unknown) date) 01/21/22 unknown) (unknown) (no (unknown) (unknown) 01/22/22 06:05 (units (unknown) date) unknown) (unknown) (no (unknown) (unknown) 01/22/22 01/22/22 (units (unknown) date) unknown) (unknown) (no (unknown) (unknown) 01/22/22 1118 (units ( unknown) date) unknown) (unknown) (no (unknown) (unknown) 01/22/22 (units (unkno wn) date) unknown) (unknown) (no (unknown) (unknown) 14:50 14:50 14:50 (units (unknown) date) unknown) (unknown) (no (unknown) (unknown) 14:50 18:27 21:52 (units (unknown) date) unknown) (unknown) (no (unknown) (unknown) [address]259 (units (unkno wn) date) unknown) (unknown) (no (unknown) (unknown) ALT 14 (units (unkno wn) date) unknown) (unknown) (no (unknown) (unknown) ALT (units (unkno wn) date) unknown) (unknown) (no (unknown) (unknown) APTT 25 L (units (unkn own) date) unknown) (unknown) (no (unknown) (unknown) APTT (units (unkno wn) date) unknown) (unknown) (no (unknown) (unknown) AST 45 H (units (unkno wn) date) unknown) (unknown) (no (unknown) (unknown) AST (units (unkno wn) date) unknown) (unknown) (no (unknown) (unknown) Abdomen: S NT ND. (units (unknown) date) unknown) (unknown) (no (unknown) (unknown) Abdominal pain (units (unknown) date) unknown) (unknown) (no (unknown) (unknown) Acute respiratory (units (unknown) date) failure with Hypoxia unknown) (unknown) (no (unknown) (unknown) Acute symptomatic (units (unknown) date) blood loss anemia unknown) most likely related to upper GI bleed (unknown) (no (unknown) (unknown) Age/Sex: 56 / F (units (unknown) date) unknown) (unknown) (no (unknown) (unknown) Albumin 2.9 L (units ( unknown) date) unknown) (unknown) (no (unknown) (unknown) Albumin (units (unkno wn) date) unknown) (unknown) (no (unknown) (unknown) Albumin/Globulin (units (unknown) date) Ratio 1.2 unknown) (unknown) (no (unknown) (unknown) Albumin/Globulin (units (unknown) date) Ratio unknown) (unknown) (no (unknown) (unknown) Alcohol use (units (un known) date) unknown) (unknown) (no (unknown) (unknown) Alkaline (units (unkno wn) date) Phosphatase 39 unknown) (unknown) (no (unknown) (unknown) Alkaline (units (unkno wn) date) Phosphatase unknown) (unknown) (no (unknown) (unknown) Allergic dermatitis (unit s (unknown) date) of eyelids of both unknown) eyes (unknown) (no (unknown) (unknown) Anemia (units (unkno wn) date) unknown) (unknown) (no (unknown) (unknown) Anisocytosis 2+ H (units (unknown) date) unknown) (unknown) (no (unknown) (unknown) Anisocytosis (units (u nknown) date) unknown) (unknown) (no (unknown) (unknown) Antibody Screen (units (unknown) date) Negative unknown) (unknown) (no (unknown) (unknown) Antibody Screen (units (unknown) date) unknown) (unknown) (no (unknown) (unknown) Arthritis (Unknown) (unit s (unknown) date) unknown) (unknown) (no (unknown) (unknown) Assessment + Plan (units (unknown) date) narrative: unknown) (unknown) (no (unknown) (unknown) Assessment + Plan (units (unknown) date) unknown) (unknown) (no (unknown) (unknown) Asthma (Unknown) (units (unknown) date) unknown) (unknown) (no (unknown) (unknown) Asthma (units (unkno wn) date) unknown) (unknown) (no (unknown) (unknown) BUN 26 H (units (unkno wn) date) unknown) (unknown) (no (unknown) (unknown) BUN 37 H (units (unkno wn) date) unknown) (unknown) (no (unknown) (unknown) BUN (units (unkno wn) date) unknown) (unknown) (no (unknown) (unknown) BUN/Creatinine (units (unknown) date) Ratio 31.0 H unknown) (unknown) (no (unknown) (unknown) BUN/Creatinine (units (unknown) date) Ratio 47.4 H unknown) (unknown) (no (unknown) (unknown) BUN/Creatinine (units (unknown) date) Ratio unknown) (unknown) (no (unknown) (unknown) Baso # (Auto) 100 (units (unknown) date) unknown) (unknown) (no (unknown) (unknown) Baso # (Auto) (units ( unknown) date) unknown) (unknown) (no (unknown) (unknown) Baso % (Auto) 0.6 (units (unknown) date) unknown) (unknown) (no (unknown) (unknown) Baso % (Auto) (units ( unknown) date) unknown) (unknown) (no (unknown) (unknown) Blood Pressure (units (unknown) date) 107/57 L 118/62 unknown) 108/58 L (unknown) (no (unknown) (unknown) Blood Pressure (units (unknown) date) 113/72 117/71 unknown) (unknown) (no (unknown) (unknown) Blood Pressure (units (unknown) date) 113/72 unknown) (unknown) (no (unknown) (unknown) Blood Pressure (units (unknown) date) 127/70 117/71 unknown) (unknown) (no (unknown) (unknown) Blood Pressure (units (unknown) date) unknown) (unknown) (no (unknown) (unknown) Blood Type O (units (u nknown) date) Negative unknown) (unknown) (no (unknown) (unknown) Blood Type (units (unk nown) date) unknown) (unknown) (no (unknown) (unknown) CK-MB (CK-2) Rel (units (unknown) date) Index TNP unknown) (unknown) (no (unknown) (unknown) CK-MB (CK-2) Rel (units (unknown) date) Index unknown) (unknown) (no (unknown) (unknown) CK-MB (CK-2) TNP (units (unknown) date) unknown) (unknown) (no (unknown) (unknown) CK-MB (CK-2) (units (u nknown) date) unknown) (unknown) (no (unknown) (unknown) COPD (chronic (units ( unknown) date) obstructive unknown) pulmonary disease) (unknown) (no (unknown) (unknown) COPD with mild (units (unknown) date) exacerbation unknown) (unknown) (no (unknown) (unknown) COVID-19 status: (units (unknown) date) Negative unknown) (unknown) (no (unknown) (unknown) COVID-19 (units (unkno wn) date) unknown) (unknown) (no (unknown) (unknown) Calcium 7.6 L (units ( unknown) date) unknown) (unknown) (no (unknown) (unknown) Calcium 7.9 L (units ( unknown) date) unknown) (unknown) (no (unknown) (unknown) Calcium (units (unkno wn) date) unknown) (unknown) (no (unknown) (unknown) Carbon Dioxide 28 (units (unknown) date) unknown) (unknown) (no (unknown) (unknown) Carbon Dioxide 36 H (unit s (unknown) date) unknown) (unknown) (no (unknown) (unknown) Carbon Dioxide (units (unknown) date) unknown) (unknown) (no (unknown) (unknown) Cardio:?RRR, 2-3/6 (units (unknown) date) systolic murmur, no unknown) rubs or gallops. (unknown) (no (unknown) (unknown) Carpal tunnel (units ( unknown) date) syndrome (-2017) unknown) (unknown) (no (unknown) (unknown) Chest:? Normal AP (units (unknown) date) diameter and contour unknown) without kyphoscoliosis, no tachypnea, (unknown) (no (unknown) (unknown) Chloride 100 (units (u nknown) date) unknown) (unknown) (no (unknown) (unknown) Chloride 94 L (units ( unknown) date) unknown) (unknown) (no (unknown) (unknown) Chloride (units (unkno wn) date) unknown) (unknown) (no (unknown) (unknown) Chronic atrial (units (unknown) date) fibrillation on unknown) anticoagulation (unknown) (no (unknown) (unknown) Chronic atrial (units (unknown) date) fibrillation unknown) (unknown) (no (unknown) (unknown) Continues to feel (units (unknown) date) quite tired and unknown) weak, but somewhat less short of breath today. (unknown) (no (unknown) (unknown) Cor pulmonale (units ( unknown) date) (chronic) unknown) (unknown) (no (unknown) (unknown) Creatinine 0.78 (units (unknown) date) unknown) (unknown) (no (unknown) (unknown) Creatinine 0.84 (units (unknown) date) unknown) (unknown) (no (unknown) (unknown) Creatinine (units (unk nown) date) unknown) (unknown) (no (unknown) (unknown) Critical Care time: (unit s (unknown) date) unknown) (unknown) (no (unknown) (unknown) Crossmatch See (units (unknown) date) Detail unknown) (unknown) (no (unknown) (unknown) Crossmatch (units (unk nown) date) unknown) (unknown) (no (unknown) (unknown) : 1965 (units (unknown) date) Acct:[id number] unknown) (unknown) (no (unknown) (unknown) Date Patient Seen: (units (unknown) date) 01/22/22 unknown) (unknown) (no (unknown) (unknown) Date of Service: (units (unknown) date) 01/21/22 unknown) (unknown) (no (unknown) (unknown) Eczema (units (unkno wn) date) unknown) (unknown) (no (unknown) (unknown) Eos # (Auto) 0 (units (unknown) date) unknown) (unknown) (no (unknown) (unknown) Eos # (Auto) (units (u nknown) date) unknown) (unknown) (no (unknown) (unknown) Eos % (Auto) 0.1 L (units (unknown) date) unknown) (unknown) (no (unknown) (unknown) Eos % (Auto) 0.2 L (units (unknown) date) unknown) (unknown) (no (unknown) (unknown) Eos % (Auto) (units (u nknown) date) unknown) (unknown) (no (unknown) (unknown) Estimated GFR > 60 (units (unknown) date) unknown) (unknown) (no (unknown) (unknown) Estimated GFR (units ( unknown) date) unknown) (unknown) (no (unknown) (unknown) Ethyl Alcohol < 10 (units (unknown) date) unknown) (unknown) (no (unknown) (unknown) Ethyl Alcohol (units ( unknown) date) unknown) (unknown) (no (unknown) (unknown) Exam Narrative: (units (unknown) date) unknown) (unknown) (no (unknown) (unknown) Exam (units (unkno wn) date) unknown) (unknown) (no (unknown) (unknown) Extremities: No (units (unknown) date) edema or joint unknown) effusions. No cyanosis or clubbing. (unknown) (no (unknown) (unknown) Family History (units (unknown) date) (Reviewed 01/21/22 @ unknown) 21:03 by Benito Simon MD) (unknown) (no (unknown) (unknown) Fraction of (units (un known) date) Inspired Oxygen 40 unknown) (unknown) (no (unknown) (unknown) Fraction of (units (un known) date) Inspired Oxygen unknown) (unknown) (no (unknown) (unknown) General:? Patient (units (unknown) date) is well developed unknown) and well nourished, obese with BMI 42.6. in (unknown) (no (unknown) (unknown) Globulin 2.5 (units (u nknown) date) unknown) (unknown) (no (unknown) (unknown) Globulin (units (unkno wn) date) unknown) (unknown) (no (unknown) (unknown) Glucose 113 H (units ( unknown) date) unknown) (unknown) (no (unknown) (unknown) Glucose 122 H (units ( unknown) date) unknown) (unknown) (no (unknown) (unknown) Glucose (units (unkno wn) date) unknown) (unknown) (no (unknown) (unknown) HEENT:? (units (unkno wn) date) Normocephalic, unknown) atraumatic, extraocular muscles intact, oral pharynx is (unknown) (no (unknown) (unknown) Hct 12.8 L* (units (un known) date) unknown) (unknown) (no (unknown) (unknown) Hct 18.1 L* (units (un known) date) unknown) (unknown) (no (unknown) (unknown) Hct 23.7 L (units (unk nown) date) unknown) (unknown) (no (unknown) (unknown) Hct (units (unkno wn) date) unknown) (unknown) (no (unknown) (unknown) Hgb 3.9 L* (units (unk nown) date) unknown) (unknown) (no (unknown) (unknown) Hgb 5.8 L* (units (unk nown) date) unknown) (unknown) (no (unknown) (unknown) Hgb 7.8 L (units (unkn own) date) unknown) (unknown) (no (unknown) (unknown) Hgb (units (unkno wn) date) unknown) (unknown) (no (unknown) (unknown) History of (units (unk nown) date) hysterectomy for unknown) cancer (unknown) (no (unknown) (unknown) Hold (units (unkno wn) date) anticoagulation unknown) given active bleeding, SCDs for DVT prophylaxis, Protonix (unknown) (no (unknown) (unknown) Hypochromasia 1+ H (units (unknown) date) D unknown) (unknown) (no (unknown) (unknown) Hypochromasia 3+ H (units (unknown) date) unknown) (unknown) (no (unknown) (unknown) Hypochromasia (units ( unknown) date) unknown) (unknown) (no (unknown) (unknown) Hypokalemia (units (un known) date) unknown) (unknown) (no (unknown) (unknown) Hypotension -most (units (unknown) date) likely secondary to unknown) hypovolemia due to GI bleed -continue (unknown) (no (unknown) (unknown) I spent a total of (units (unknown) date) [] minutes of unknown) critical care time on this patient's care (unknown) (no (unknown) (unknown) INR 1.6 H (units (unkn own) date) unknown) (unknown) (no (unknown) (unknown) INR (units (unkno wn) date) unknown) (unknown) (no (unknown) (unknown) IV for GI (units (unkn own) date) prophylaxis unknown) (unknown) (no (unknown) (unknown) Impetigo (units (unkno wn) date) unknown) (unknown) (no (unknown) (unknown) Incontinence (units (u nknown) date) unknown) (unknown) (no (unknown) (unknown) Interval history: (units (unknown) date) unknown) (unknown) (no (unknown) (unknown) [facility] (units (unknown) date) [address] unknown) [place] [address] (unknown) (no (unknown) (unknown) Laboratory Results (units (unknown) date) - last 24 hr unknown) (unknown) (no (unknown) (unknown) Labs (units (unkno wn) date) unknown) (unknown) (no (unknown) (unknown) Labs: (units (unkno wn) date) unknown) (unknown) (no (unknown) (unknown) Lungs:? CTA b/l no (units (unknown) date) wheezing rhonchi or unknown) rales. (unknown) (no (unknown) (unknown) Lymph # (Auto) 1700 (unit s (unknown) date) unknown) (unknown) (no (unknown) (unknown) Lymph # (Auto) (units (unknown) date) unknown) (unknown) (no (unknown) (unknown) Lymph % (Auto) 14.7 (unit s (unknown) date) L unknown) (unknown) (no (unknown) (unknown) Lymph % (Auto) 15.4 (unit s (unknown) date) L unknown) (unknown) (no (unknown) (unknown) Lymph % (Auto) (units (unknown) date) unknown) (unknown) (no (unknown) (unknown) MCH 23.0 L (units (unk nown) date) unknown) (unknown) (no (unknown) (unknown) MCH 26.3 (units (unkno wn) date) unknown) (unknown) (no (unknown) (unknown) MCH (units (unkno wn) date) unknown) (unknown) (no (unknown) (unknown) MCHC 30.3 (units (unkn own) date) unknown) (unknown) (no (unknown) (unknown) MCHC 32.8 (units (unkn own) date) unknown) (unknown) (no (unknown) (unknown) MCHC (units (unkno wn) date) unknown) (unknown) (no (unknown) (unknown) MCV 75.9 L (units (unk nown) date) unknown) (unknown) (no (unknown) (unknown) MCV 80.2 D (units (unk nown) date) unknown) (unknown) (no (unknown) (unknown) MCV (units (unkno wn) date) unknown) (unknown) (no (unknown) (unknown) Magnesium 1.7 (units ( unknown) date) unknown) (unknown) (no (unknown) (unknown) Magnesium (units (unkn own) date) unknown) (unknown) (no (unknown) (unknown) Medical History (units (unknown) date) (Reviewed 01/21/22 @ unknown) 21:03 by Benito Simon MD) (unknown) (no (unknown) (unknown) Lyon # (Auto) 1100 (units (unknown) date) H unknown) (unknown) (no (unknown) (unknown) Lyon # (Auto) 1700 (units (unknown) date) H unknown) (unknown) (no (unknown) (unknown) Lyon # (Auto) (units ( unknown) date) unknown) (unknown) (no (unknown) (unknown) Lyon % (Auto) 14.9 (units (unknown) date) H unknown) (unknown) (no (unknown) (unknown) Lyon % (Auto) 9.7 (units (unknown) date) unknown) (unknown) (no (unknown) (unknown) Lyon % (Auto) (units ( unknown) date) unknown) (unknown) (no (unknown) (unknown) Morbid obesity due (units (unknown) date) to excess calories unknown) (unknown) (no (unknown) (unknown) Mother CVA (unit s (unknown) date) (cerebral vascular unknown) accident) (unknown) (no (unknown) (unknown) Musculoskeletal:? (units (unknown) date) Muscle strength and unknown) tone are equal within normal limits, no (unknown) (no (unknown) (unknown) NT-Pro-B Natriuret (units (unknown) date) Pep 637 H unknown) (unknown) (no (unknown) (unknown) NT-Pro-B Natriuret (units (unknown) date) Pep unknown) (unknown) (no (unknown) (unknown) Narrative (units (unkn own) date) unknown) (unknown) (no (unknown) (unknown) Nasal Screen MRSA (units (unknown) date) (PCR) Positive for unknown) mrsa H (unknown) (no (unknown) (unknown) Nasal Screen MRSA (units (unknown) date) (PCR) unknown) (unknown) (no (unknown) (unknown) Neck: supple and (units (unknown) date) symmetric, trachea unknown) is midline, no cervical adenopathy. (unknown) (no (unknown) (unknown) Neuro:? Alert and (units (unknown) date) orientated x3,? unknown) sensation to touch intact in all extremities, (unknown) (no (unknown) (unknown) Neut # (Auto) 7700 (units (unknown) date) H unknown) (unknown) (no (unknown) (unknown) Neut # (Auto) 8600 (units (unknown) date) H unknown) (unknown) (no (unknown) (unknown) Neut # (Auto) (units ( unknown) date) unknown) (unknown) (no (unknown) (unknown) Neut % (Auto) 68.9 (units (unknown) date) unknown) (unknown) (no (unknown) (unknown) Neut % (Auto) 74.9 (units (unknown) date) unknown) (unknown) (no (unknown) (unknown) Neut % (Auto) (units ( unknown) date) unknown) (unknown) (no (unknown) (unknown) Nucleated RBCs 3 H (units (unknown) date) unknown) (unknown) (no (unknown) (unknown) Nucleated RBCs (units (unknown) date) unknown) (unknown) (no (unknown) (unknown) 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 pulmonary hypertension (unknown) (no (unknown) (unknown) Objective (units (unkn own) date) unknown) (unknown) (no (unknown) (unknown) Oxygen Delivery (units (unknown) date) Method Nasal Cannula unknown) Oximask (unknown) (no (unknown) (unknown) Oxygen Delivery (units (unknown) date) Method Oximask unknown) (unknown) (no (unknown) (unknown) Oxygen Delivery (units (unknown) date) Method unknown) (unknown) (no (unknown) (unknown) Oxygen Flow Rate 5 (units (unknown) date) 5 unknown) (unknown) (no (unknown) (unknown) Oxygen Flow Rate 5 (units (unknown) date) unknown) (unknown) (no (unknown) (unknown) Oxygen Flow Rate (units (unknown) date) unknown) (unknown) (no (unknown) (unknown) PFSH (units (unkno wn) date) unknown) (unknown) (no (unknown) (unknown) PT 18.6 H (units (unkn own) date) unknown) (unknown) (no (unknown) (unknown) PT (units (unkno wn) date) unknown) (unknown) (no (unknown) (unknown) Patient is full (units (unknown) date) code, surrogate is unknown) son. (unknown) (no (unknown) (unknown) Patient: (units (unkno wn) date) Rosalba Pabon MR#: unknown) [id number] (unknown) (no (unknown) (unknown) Plt Count 274 (units ( unknown) date) unknown) (unknown) (no (unknown) (unknown) Plt Count 331 (units ( unknown) date) unknown) (unknown) (no (unknown) (unknown) Plt Count (units (unkn own) date) unknown) (unknown) (no (unknown) (unknown) Poikilocytosis 1+ H (unit s (unknown) date) unknown) (unknown) (no (unknown) (unknown) Poikilocytosis (units (unknown) date) unknown) (unknown) (no (unknown) (unknown) Polychromasia 1+ H (units (unknown) date) unknown) (unknown) (no (unknown) (unknown) Polychromasia (units ( unknown) date) unknown) (unknown) (no (unknown) (unknown) Potassium 3.0 L (units (unknown) date) unknown) (unknown) (no (unknown) (unknown) Potassium 3.6 (units ( unknown) date) unknown) (unknown) (no (unknown) (unknown) Potassium (units (unkn own) date) unknown) (unknown) (no (unknown) (unknown) Progress Note (units ( unknown) date) unknown) (unknown) (no (unknown) (unknown) Provider: (units (unkn own) date) Stevo Lewis D.O. unknown) (unknown) (no (unknown) (unknown) Psych:? Patient has (unit s (unknown) date) a well-kept unknown) appearance, appropriate affect, mental status (unknown) (no (unknown) (unknown) Pulmonary (units (unkn own) date) hypertension unknown) (unknown) (no (unknown) (unknown) Pulse Oximetry 92 (units (unknown) date) 93 unknown) (unknown) (no (unknown) (unknown) Pulse Oximetry 93 (units (unknown) date) unknown) (unknown) (no (unknown) (unknown) Pulse Oximetry 94 (units (unknown) date) unknown) (unknown) (no (unknown) (unknown) Pulse Oximetry (units (unknown) date) unknown) (unknown) (no (unknown) (unknown) Pulse Rate 103 H (units (unknown) date) 103 H unknown) (unknown) (no (unknown) (unknown) Pulse Rate 107 H (units (unknown) date) unknown) (unknown) (no (unknown) (unknown) Pulse Rate 108 H (units (unknown) date) 111 H 108 H unknown) (unknown) (no (unknown) (unknown) Pulse Rate 109 H (units (unknown) date) 104 H 103 H unknown) (unknown) (no (unknown) (unknown) Pulse Rate (units (unk nown) date) unknown) (unknown) (no (unknown) (unknown) RBC 1.68 L (units (unk nown) date) unknown) (unknown) (no (unknown) (unknown) RBC 2.96 L (units (unk nown) date) unknown) (unknown) (no (unknown) (unknown) RBC Morphology Not (units (unknown) date) Reportable unknown) (unknown) (no (unknown) (unknown) RBC Morphology See (units (unknown) date) below unknown) (unknown) (no (unknown) (unknown) RBC Morphology (units (unknown) date) unknown) (unknown) (no (unknown) (unknown) RBC (units (unkno wn) date) unknown) (unknown) (no (unknown) (unknown) RDW 21.4 H (units (unk nown) date) unknown) (unknown) (no (unknown) (unknown) RDW 21.9 H (units (unk nown) date) unknown) (unknown) (no (unknown) (unknown) RDW (units (unkno wn) date) unknown) (unknown) (no (unknown) (unknown) Respiratory Rate 16 (unit s (unknown) date) 18 20 unknown) (unknown) (no (unknown) (unknown) Respiratory Rate 16 (unit s (unknown) date) 20 21 unknown) (unknown) (no (unknown) (unknown) Respiratory Rate 20 (unit s (unknown) date) 20 unknown) (unknown) (no (unknown) (unknown) Respiratory Rate 20 (unit s (unknown) date) unknown) (unknown) (no (unknown) (unknown) Respiratory Rate (units (unknown) date) unknown) (unknown) (no (unknown) (unknown) Restless leg (units (u nknown) date) syndrome unknown) (unknown) (no (unknown) (unknown) Result Diagrams: (units (unknown) date) unknown) (unknown) (no (unknown) (unknown) Right-sided low (units (unknown) date) back pain with unknown) sciatica (unknown) (no (unknown) (unknown) SARS-CoV-2 (PCR) (units (unknown) date) Negative unknown) (unknown) (no (unknown) (unknown) SARS-CoV-2 (PCR) (units (unknown) date) unknown) (unknown) (no (unknown) (unknown) SaO2/FiO2 Ratio 232 (unit s (unknown) date) unknown) (unknown) (no (unknown) (unknown) She has had no (units (unknown) date) bowel movements unknown) since admission. (unknown) (no (unknown) (unknown) She is thirsty this (units (unknown) date) morning. No unknown) abdominal pain, chest pain, nausea, or vomiting. (unknown) (no (unknown) (unknown) Signed (units (unkno wn) date) By:<Electronically unknown) signed by Stevo Lewis D.O.> (unknown) (no (unknown) (unknown) Skin:? Pale,? Warm (units (unknown) date) to touch,dry and unknown) intact without rashes, ulcerations or (unknown) (no (unknown) (unknown) Smoking Status: (units (unknown) date) Current every day unknown) smoker (unknown) (no (unknown) (unknown) Social History (units (unknown) date) (Reviewed 01/21/22 @ unknown) 15:14 by Lilian Armstrong DO) (unknown) (no (unknown) (unknown) Sodium 135 L (units (u nknown) date) unknown) (unknown) (no (unknown) (unknown) Sodium 137 (units (unk nown) date) unknown) (unknown) (no (unknown) (unknown) Sodium (units (unkno wn) date) unknown) (unknown) (no (unknown) (unknown) Staph skin (units (unk nown) date) infection unknown) (unknown) (no (unknown) (unknown) Subjective (units (unk nown) date) unknown) (unknown) (no (unknown) (unknown) Surgical History (units (unknown) date) (Reviewed 01/21/22 @ unknown) 21:03 by Benito Simon MD) (unknown) (no (unknown) (unknown) Tachycardia (units (un known) date) unknown) (unknown) (no (unknown) (unknown) Temperature 98.5 F (units (unknown) date) 97.9 F unknown) (unknown) (no (unknown) (unknown) Temperature 98.9 F (units (unknown) date) 97.9 F unknown) (unknown) (no (unknown) (unknown) Temperature 98.9 F (units (unknown) date) 98.9 F 99.6 F unknown) (unknown) (no (unknown) (unknown) Temperature 98.9 F (units (unknown) date) unknown) (unknown) (no (unknown) (unknown) Temperature (units (un known) date) unknown) (unknown) (no (unknown) (unknown) Time Spent With (units (unknown) date) Patient unknown) (unknown) (no (unknown) (unknown) Total Bilirubin 0.4 (unit s (unknown) date) unknown) (unknown) (no (unknown) (unknown) Total Bilirubin (units (unknown) date) unknown) (unknown) (no (unknown) (unknown) Total Creatine (units (unknown) date) Kinase 41 unknown) (unknown) (no (unknown) (unknown) Total Creatine (units (unknown) date) Kinase unknown) (unknown) (no (unknown) (unknown) Total Protein 5.4 L (unit s (unknown) date) unknown) (unknown) (no (unknown) (unknown) Total Protein (units ( unknown) date) unknown) (unknown) (no (unknown) (unknown) Troponin I < 0.012 (units (unknown) date) unknown) (unknown) (no (unknown) (unknown) Troponin I (units (unk nown) date) unknown) (unknown) (no (unknown) (unknown) Vital Signs (units (un known) date) unknown) (unknown) (no (unknown) (unknown) WBC 11.2 H (units (unk nown) date) unknown) (unknown) (no (unknown) (unknown) WBC 11.5 H (units (unk nown) date) unknown) (unknown) (no (unknown) (unknown) WBC (units (unkno wn) date) unknown) (unknown) (no (unknown) (unknown) [Embedded Image Not (unit s (unknown) date) Available] unknown) (unknown) (no (unknown) (unknown) alcohol intake: (units (unknown) date) current unknown) (unknown) (no (unknown) (unknown) alkalosis. (units (unk nown) date) unknown) (unknown) (no (unknown) (unknown) attitude thought (units (unknown) date) context and judgment unknown) are appropriate for age. (unknown) (no (unknown) (unknown) clear and mucous (units (unknown) date) membranes are dry. unknown) (unknown) (no (unknown) (unknown) close monitoring (units (unknown) date) unknown) (unknown) (no (unknown) (unknown) deformity. (units (unk nown) date) unknown) (unknown) (no (unknown) (unknown) equal chest rise (units (unknown) date) bilaterally. unknown) (unknown) (no (unknown) (unknown) instead of usual 50 (unit s (unknown) date) mg BID. unknown) (unknown) (no (unknown) (unknown) no distress at this (unit s (unknown) date) time. Very pale. unknown) (unknown) (no (unknown) (unknown) no gross deficits (units (unknown) date) noted of cranial unknown) nerves. (unknown) (no (unknown) (unknown) noted below. (units (u nknown) date) unknown) (unknown) (no (unknown) (unknown) now. (units (unkno wn) date) unknown) (unknown) (no (unknown) (unknown) petechiae.? (units (un known) date) unknown) (unknown) (no (unknown) (unknown) quit status: has (units (unknown) date) quit before unknown) (unknown) (no (unknown) (unknown) secondary to NSAID (units (unknown) date) use unknown) (unknown) (no (unknown) (unknown) therapy given COPD. (unit s (unknown) date) Increase in CO2 on unknown) chemistry today, possibly to contraction (unknown) (no (unknown) (unknown) today; this time is (unit s (unknown) date) exclusive of unknown) procedural time. Result panel 62 (unknown) (no date) (unknown) (unknown) NEGATIVE (units (unkn own) unknown) (unknown) (no date) (unknown) (unknown) O Negative (units (un known) unknown) (unknown) (no date) (unknown) (unknown) O Negative (units (un known) unknown) (unknown) (no date) (unknown) (unknown) TRANSFUSED (units (un known) PRODUCT: Packed unknown) Cells COUNT: 5 Result panel 63 (unknown) (no date) (unknown) (unknown) 25.4 % (unkn own) (unknown) (no date) (unknown) (unknown) 8.6 g/dl (unkn own) Result panel 64 (unknown) (no date) (unknown) (unknown) 0 /ul (unkn own) (unknown) (no date) (unknown) (unknown) 0.3 % (unkn own) (unknown) (no date) (unknown) (unknown) 0.6 % (unkn own) (unknown) (no date) (unknown) (unknown) 10.1 x10 3/ul (unkn own) (unknown) (no date) (unknown) (unknown) 10.4 % (unkn own) (unknown) (no date) (unknown) (unknown) 100 /ul (unkn own) (unknown) (no date) (unknown) (unknown) 1100 /ul (unkn own) (unknown) (no date) (unknown) (unknown) 15.3 % (unkn own) (unknown) (no date) (unknown) (unknown) 1500 /ul (unkn own) (unknown) (no date) (unknown) (unknown) 2.89 x10 6/ul (unkn own) (unknown) (no date) (unknown) (unknown) 20.1 % (unkn own) (unknown) (no date) (unknown) (unknown) 23.7 % (unkn own) (unknown) (no date) (unknown) (unknown) 236 x10 3/ul (unkn own) (unknown) (no date) (unknown) (unknown) 27.2 pg (unkn own) (unknown) (no date) (unknown) (unknown) 33.2 % (unkn own) (unknown) (no date) (unknown) (unknown) 7.9 g/dl (unkn own) (unknown) (no date) (unknown) (unknown) 73.4 % (unkn own) (unknown) (no date) (unknown) (unknown) 7400 /ul (unkn own) (unknown) (no date) (unknown) (unknown) 82.2 fl (unkn own) Result panel 65 (unknown) (no date) (unknown) (unknown) > 60 ml/min (unkn own) (unknown) (no date) (unknown) (unknown) > 60 ml/min (unkn own) (unknown) (no date) (unknown) (unknown) 0.64 mg/dl (unkn own) (unknown) (no date) (unknown) (unknown) 1.8 mg/dl (unkn own) (unknown) (no date) (unknown) (unknown) 10 mg/dl (unkn own) (unknown) (no date) (unknown) (unknown) 110 mg/dl (unkn own) (unknown) (no date) (unknown) (unknown) 110 mg/dl (unkn own) (unknown) (no date) (unknown) (unknown) 136 mmol/l (unkn own) (unknown) (no date) (unknown) (unknown) 15.6 (units unknown) (unknown) (unknown) (no date) (unknown) (unknown) 3.3 mmol/l (unkn own) (unknown) (no date) (unknown) (unknown) 39 mmol/l (unkn own) (unknown) (no date) (unknown) (unknown) 7.4 mg/dl (unkn own) (unknown) (no date) (unknown) (unknown) 93 mmol/l (unkn own) Result panel 66 (unknown) (no date) (unknown) (unknown) 0 /ul (unkn own) (unknown) (no date) (unknown) (unknown) 0.3 % (unkn own) (unknown) (no date) (unknown) (unknown) 0.6 % (unkn own) (unknown) (no date) (unknown) (unknown) 10.1 x10 3/ul (unkn own) (unknown) (no date) (unknown) (unknown) 10.4 % (unkn own) (unknown) (no date) (unknown) (unknown) 100 /ul (unkn own) (unknown) (no date) (unknown) (unknown) 1100 /ul (unkn own) (unknown) (no date) (unknown) (unknown) 15.3 % (unkn own) (unknown) (no date) (unknown) (unknown) 1500 /ul (unkn own) (unknown) (no date) (unknown) (unknown) 2 (units (unkn own) unknown) (unknown) (no date) (unknown) (unknown) 2.89 x10 6/ul (unkn own) (unknown) (no date) (unknown) (unknown) 20.1 % (unkn own) (unknown) (no date) (unknown) (unknown) 23.7 % (unkn own) (unknown) (no date) (unknown) (unknown) 236 x10 3/ul (unkn own) (unknown) (no date) (unknown) (unknown) 27.2 pg (unkn own) (unknown) (no date) (unknown) (unknown) 33.2 % (unkn own) (unknown) (no date) (unknown) (unknown) 7.9 g/dl (unkn own) (unknown) (no date) (unknown) (unknown) 73.4 % (unkn own) (unknown) (no date) (unknown) (unknown) 7400 /ul (unkn own) (unknown) (no date) (unknown) (unknown) 82.2 fl (unkn own) (unknown) (no date) (unknown) (unknown) See Below (units (unk nown) unknown) Result panel 67 (unknown) (no (unknown) (unknown) (no value) (units (unk nown) date) unknown) (unknown) (no (unknown) (unknown) #18 grams (units (unkn own) date) unknown) (unknown) (no (unknown) (unknown) (Mirapex) (units (unkn own) date) unknown) (unknown) (no (unknown) (unknown) (past 8 hours): (units (unknown) date) unknown) (unknown) (no (unknown) (unknown) 02:28 01/23/22 (units (unknown) date) unknown) (unknown) (no (unknown) (unknown) 02:30 (units (unkno wn) date) unknown) (unknown) (no (unknown) (unknown) 02:45 01/23/22 (units (unknown) date) unknown) (unknown) (no (unknown) (unknown) 03:00 01/23/22 (units (unknown) date) unknown) (unknown) (no (unknown) (unknown) 03:00 (units (unkno wn) date) unknown) (unknown) (no (unknown) (unknown) 03:15 01/23/22 (units (unknown) date) unknown) (unknown) (no (unknown) (unknown) 03:30 01/23/22 (units (unknown) date) unknown) (unknown) (no (unknown) (unknown) 03:45 (units (unkno wn) date) unknown) (unknown) (no (unknown) (unknown) 04:00 01/23/22 (units (unknown) date) unknown) (unknown) (no (unknown) (unknown) 04:15 (units (unkno wn) date) unknown) (unknown) (no (unknown) (unknown) 04:22 01/23/22 (units (unknown) date) unknown) (unknown) (no (unknown) (unknown) 04:24 01/23/22 (units (unknown) date) unknown) (unknown) (no (unknown) (unknown) 04:30 (units (unkno wn) date) unknown) (unknown) (no (unknown) (unknown) 04:45 01/23/22 (units (unknown) date) unknown) (unknown) (no (unknown) (unknown) 05:00 01/23/22 (units (unknown) date) unknown) (unknown) (no (unknown) (unknown) 05:15 (units (unkno wn) date) unknown) (unknown) (no (unknown) (unknown) 05:30 01/23/22 (units (unknown) date) unknown) (unknown) (no (unknown) (unknown) 05:45 01/23/22 (units (unknown) date) unknown) (unknown) (no (unknown) (unknown) 05:47 (units (unkno wn) date) unknown) (unknown) (no (unknown) (unknown) 06:00 (units (unkno wn) date) unknown) (unknown) (no (unknown) (unknown) 06:15 01/23/22 (units (unknown) date) unknown) (unknown) (no (unknown) (unknown) 06:30 01/23/22 (units (unknown) date) unknown) (unknown) (no (unknown) (unknown) 06:45 01/23/22 (units (unknown) date) unknown) (unknown) (no (unknown) (unknown) 06:45 (units (unkno wn) date) unknown) (unknown) (no (unknown) (unknown) 07:00 01/23/22 (units (unknown) date) unknown) (unknown) (no (unknown) (unknown) 07:00 (units (unkno wn) date) unknown) (unknown) (no (unknown) (unknown) 07:15 01/23/22 (units (unknown) date) unknown) (unknown) (no (unknown) (unknown) 07:30 (units (unkno wn) date) unknown) (unknown) (no (unknown) (unknown) 07:45 01/23/22 (units (unknown) date) unknown) (unknown) (no (unknown) (unknown) 08:00 01/23/22 (units (unknown) date) unknown) (unknown) (no (unknown) (unknown) 08:08 01/23/22 (units (unknown) date) unknown) (unknown) (no (unknown) (unknown) 08:08 (units (unkno wn) date) unknown) (unknown) (no (unknown) (unknown) 08:10 01/23/22 (units (unknown) date) unknown) (unknown) (no (unknown) (unknown) 08:14 01/23/22 (units (unknown) date) unknown) (unknown) (no (unknown) (unknown) 08:15 01/23/22 (units (unknown) date) unknown) (unknown) (no (unknown) (unknown) 08:47 (units (unkno wn) date) unknown) (unknown) (no (unknown) (unknown) 01/21/22 (units (unkno wn) date) 01/22/22 01/23/22 unknown) (unknown) (no (unknown) (unknown) 01/21/22 Rx (units (un known) date) unknown) (unknown) (no (unknown) (unknown) 01/23/22 05:47 (units (unknown) date) unknown) (unknown) (no (unknown) (unknown) 01/23/22 (units (unkno wn) date) unknown) (unknown) (no (unknown) (unknown) 10:01 (units (unkno wn) date) unknown) (unknown) (no (unknown) (unknown) 14:50 18:00 (units (un known) date) 05:47 unknown) (unknown) (no (unknown) (unknown) [address] (units (unkno wn) date) unknown) (unknown) (no (unknown) (unknown) Abdominal pain (units (unknown) date) unknown) (unknown) (no (unknown) (unknown) Age/Sex: 56 / F (units (unknown) date) unknown) (unknown) (no (unknown) (unknown) Allergic (units (unkno wn) date) dermatitis of unknown) eyelids of both eyes (unknown) (no (unknown) (unknown) Allergies (units (unkn own) date) unknown) (unknown) (no (unknown) (unknown) Allergy/AdvReac (units (unknown) date) Type Severity unknown) Reaction Status Date / Time (unknown) (no (unknown) (unknown) Anemia (units (unkno wn) date) unknown) (unknown) (no (unknown) (unknown) Anisocytosis 2+ (units (unknown) date) H unknown) (unknown) (no (unknown) (unknown) Anisocytosis (units (u nknown) date) unknown) (unknown) (no (unknown) (unknown) Arthritis (units (unkn own) date) (Unknown) unknown) (unknown) (no (unknown) (unknown) Assessment + (units (u nknown) date) Plan unknown) (unknown) (no (unknown) (unknown) Asthma (Unknown) (units (unknown) date) unknown) (unknown) (no (unknown) (unknown) Asthma (units (unkno wn) date) unknown) (unknown) (no (unknown) (unknown) BUN 10 (units (unkno wn) date) unknown) (unknown) (no (unknown) (unknown) BUN (units (unkno wn) date) unknown) (unknown) (no (unknown) (unknown) BUN/Creatinine (units (unknown) date) Ratio 15.6 unknown) (unknown) (no (unknown) (unknown) BUN/Creatinine (units (unknown) date) Ratio unknown) (unknown) (no (unknown) (unknown) Baso # (Auto) 0 (units (unknown) date) unknown) (unknown) (no (unknown) (unknown) Baso # (Auto) (units ( unknown) date) unknown) (unknown) (no (unknown) (unknown) Baso % (Auto) (units ( unknown) date) 0.3 unknown) (unknown) (no (unknown) (unknown) Baso % (Auto) (units ( unknown) date) unknown) (unknown) (no (unknown) (unknown) Blood Pressure (units (unknown) date) 101/65 unknown) (unknown) (no (unknown) (unknown) Blood Pressure (units (unknown) date) 101/66 unknown) (unknown) (no (unknown) (unknown) Blood Pressure (units (unknown) date) 105/67 unknown) (unknown) (no (unknown) (unknown) Blood Pressure (units (unknown) date) 111/62 unknown) (unknown) (no (unknown) (unknown) Blood Pressure (units (unknown) date) 115/65 unknown) (unknown) (no (unknown) (unknown) Blood Pressure (units (unknown) date) 120/76 unknown) (unknown) (no (unknown) (unknown) Blood Pressure (units (unknown) date) unknown) (unknown) (no (unknown) (unknown) Brought in by (units ( unknown) date) family and found unknown) to have severe anemia, respiratory failure and (unknown) (no (unknown) (unknown) COPD (chronic (units ( unknown) date) obstructive unknown) pulmonary disease) (unknown) (no (unknown) (unknown) Calcium 7.4 L (units ( unknown) date) unknown) (unknown) (no (unknown) (unknown) Calcium (units (unkno wn) date) unknown) (unknown) (no (unknown) (unknown) Carbon Dioxide (units (unknown) date) 39 H unknown) (unknown) (no (unknown) (unknown) Carbon Dioxide (units (unknown) date) unknown) (unknown) (no (unknown) (unknown) Carpal tunnel (units ( unknown) date) syndrome (-2017) unknown) (unknown) (no (unknown) (unknown) Chief complaint: (units (unknown) date) Coffee ground unknown) emesis, CHF, +thinners (unknown) (no (unknown) (unknown) Chloride 93 L (units ( unknown) date) unknown) (unknown) (no (unknown) (unknown) Chloride (units (unkno wn) date) unknown) (unknown) (no (unknown) (unknown) Chronic atrial (units (unknown) date) fibrillation unknown) (unknown) (no (unknown) (unknown) Consult Note (units (u nknown) date) unknown) (unknown) (no (unknown) (unknown) Consult details (units (unknown) date) unknown) (unknown) (no (unknown) (unknown) Cor pulmonale (units ( unknown) date) (chronic) unknown) (unknown) (no (unknown) (unknown) Creatinine 0.64 (units (unknown) date) unknown) (unknown) (no (unknown) (unknown) Creatinine (units (unk nown) date) unknown) (unknown) (no (unknown) (unknown) Critical Care (units ( unknown) date) time: unknown) (unknown) (no (unknown) (unknown) Crossmatch See (units (unknown) date) Detail unknown) (unknown) (no (unknown) (unknown) Crossmatch (units (unk nown) date) unknown) (unknown) (no (unknown) (unknown) : 1965 (units (unknown) date) Acct:[id number] unknown) (unknown) (no (unknown) (unknown) Date Patient (units (u nknown) date) Seen: 01/23/22 unknown) (unknown) (no (unknown) (unknown) Date of Service: (units (unknown) date) 01/21/22 unknown) (unknown) (no (unknown) (unknown) Eczema (units (unkno wn) date) unknown) (unknown) (no (unknown) (unknown) Eos # (Auto) 100 (units (unknown) date) unknown) (unknown) (no (unknown) (unknown) Eos # (Auto) (units (u nknown) date) unknown) (unknown) (no (unknown) (unknown) Eos % (Auto) 0.6 (units (unknown) date) L unknown) (unknown) (no (unknown) (unknown) Eos % (Auto) (units (u nknown) date) unknown) (unknown) (no (unknown) (unknown) Estimated GFR > (units (unknown) date) 60 unknown) (unknown) (no (unknown) (unknown) Estimated GFR (units ( unknown) date) unknown) (unknown) (no (unknown) (unknown) Exam (units (unkno wn) date) unknown) (unknown) (no (unknown) (unknown) Family History (units (unknown) date) (Reviewed unknown) 01/23/22 @ 10:31 by Anne-Marie Clancy MD) (unknown) (no (unknown) (unknown) Fraction of (units (un known) date) Inspired Oxygen unknown) 40 (unknown) (no (unknown) (unknown) Glucose 110 H (units ( unknown) date) unknown) (unknown) (no (unknown) (unknown) Glucose (units (unkno wn) date) unknown) (unknown) (no (unknown) (unknown) Hct 25.4 L 23.7 (units (unknown) date) L unknown) (unknown) (no (unknown) (unknown) Hct (units (unkno wn) date) unknown) (unknown) (no (unknown) (unknown) Hgb 8.6 L 7.9 L (units (unknown) date) unknown) (unknown) (no (unknown) (unknown) Hgb (units (unkno wn) date) unknown) (unknown) (no (unknown) (unknown) History of (units (unk nown) date) Present Illness unknown) (unknown) (no (unknown) (unknown) History of (units (unk nown) date) hysterectomy for unknown) cancer (unknown) (no (unknown) (unknown) Home Medications (units (unknown) date) and Allergies unknown) (unknown) (no (unknown) (unknown) Home Medications (units (unknown) date) unknown) (unknown) (no (unknown) (unknown) I spent a total (units (unknown) date) of [] minutes of unknown) critical care time on this patient's care (unknown) (no (unknown) (unknown) Impetigo (units (unkno wn) date) unknown) (unknown) (no (unknown) (unknown) Incontinence (units (u nknown) date) unknown) (unknown) (no (unknown) (unknown) [facility] (units (unknown) date) [address] unknown) [place] [address] (unknown) (no (unknown) (unknown) Laboratory (units (unk nown) date) Results - last unknown) hr (unknown) (no (unknown) (unknown) Labs (units (unkno wn) date) unknown) (unknown) (no (unknown) (unknown) Labs: (units (unkno wn) date) unknown) (unknown) (no (unknown) (unknown) Lymph # (Auto) (units (unknown) date) 1500 unknown) (unknown) (no (unknown) (unknown) Lymph # (Auto) (units (unknown) date) unknown) (unknown) (no (unknown) (unknown) Lymph % (Auto) (units (unknown) date) 15.3 L unknown) (unknown) (no (unknown) (unknown) Lymph % (Auto) (units (unknown) date) unknown) (unknown) (no (unknown) (unknown) MCH 27.2 (units (unkno wn) date) unknown) (unknown) (no (unknown) (unknown) MCH (units (unkno wn) date) unknown) (unknown) (no (unknown) (unknown) MCHC 33.2 (units (unkn own) date) unknown) (unknown) (no (unknown) (unknown) MCHC (units (unkno wn) date) unknown) (unknown) (no (unknown) (unknown) MCV 82.2 (units (unkno wn) date) unknown) (unknown) (no (unknown) (unknown) MCV (units (unkno wn) date) unknown) (unknown) (no (unknown) (unknown) Magnesium 1.8 (units ( unknown) date) unknown) (unknown) (no (unknown) (unknown) Magnesium (units (unkn own) date) unknown) (unknown) (no (unknown) (unknown) Medical History (units (unknown) date) (Reviewed unknown) 01/23/22 @ 10:31 by Anne-Marie Clancy MD) (unknown) (no (unknown) (unknown) Medication (units (unk nown) date) Instructions unknown) Recorded Confirmed Type (unknown) (no (unknown) (unknown) Meds (units (unkno wn) date) unknown) (unknown) (no (unknown) (unknown) Lyon # (Auto) (units ( unknown) date) 1100 H unknown) (unknown) (no (unknown) (unknown) Lyon # (Auto) (units ( unknown) date) unknown) (unknown) (no (unknown) (unknown) Lyon % (Auto) (units ( unknown) date) 10.4 unknown) (unknown) (no (unknown) (unknown) Lyon % (Auto) (units ( unknown) date) unknown) (unknown) (no (unknown) (unknown) Morbid obesity (units (unknown) date) due to excess unknown) calories (unknown) (no (unknown) (unknown) Mother (units (unknown) date) CVA (cerebral unknown) vascular accident) (unknown) (no (unknown) (unknown) Narrative: (units (unk nown) date) unknown) (unknown) (no (unknown) (unknown) Neut # (Auto) (units ( unknown) date) 7400 H unknown) (unknown) (no (unknown) (unknown) Neut # (Auto) (units ( unknown) date) unknown) (unknown) (no (unknown) (unknown) Neut % (Auto) (units ( unknown) date) 73.4 unknown) (unknown) (no (unknown) (unknown) Neut % (Auto) (units ( unknown) date) unknown) (unknown) (no (unknown) (unknown) Objective (units (unkn own) date) unknown) (unknown) (no (unknown) (unknown) Oxygen Delivery (units (unknown) date) Method Oximask unknown) Oximask Simple Mask (unknown) (no (unknown) (unknown) Oxygen Delivery (units (unknown) date) Method Oximask unknown) (unknown) (no (unknown) (unknown) Oxygen Delivery (units (unknown) date) Method Simple unknown) Mask (unknown) (no (unknown) (unknown) Oxygen Delivery (units (unknown) date) Method unknown) (unknown) (no (unknown) (unknown) Oxygen Flow Rate (units (unknown) date) 5 6 unknown) (unknown) (no (unknown) (unknown) Oxygen Flow Rate (units (unknown) date) 5 unknown) (unknown) (no (unknown) (unknown) Oxygen Flow Rate (units (unknown) date) 6 unknown) (unknown) (no (unknown) (unknown) Oxygen Flow Rate (units (unknown) date) 8 unknown) (unknown) (no (unknown) (unknown) Oxygen Flow Rate (units (unknown) date) unknown) (unknown) (no (unknown) (unknown) PFSH (units (unkno wn) date) unknown) (unknown) (no (unknown) (unknown) Patient: (units (unkno wn) date) Rosalba Pabon unknown) MR#: [id number] (unknown) (no (unknown) (unknown) Plt Count 236 (units ( unknown) date) unknown) (unknown) (no (unknown) (unknown) Plt Count (units (unkn own) date) unknown) (unknown) (no (unknown) (unknown) Potassium 3.3 L (units (unknown) date) unknown) (unknown) (no (unknown) (unknown) Potassium (units (unkn own) date) unknown) (unknown) (no (unknown) (unknown) Provider: (units (unkn own) date) Anne-Marie Clancy unknown) (unknown) (no (unknown) (unknown) Pulmonary (units (unkn own) date) hypertension unknown) (unknown) (no (unknown) (unknown) Pulse Oximetry (units (unknown) date) 88 L 94 73 L unknown) (unknown) (no (unknown) (unknown) Pulse Oximetry (units (unknown) date) 88 L 94 unknown) (unknown) (no (unknown) (unknown) Pulse Oximetry (units (unknown) date) 92 83 L 87 L unknown) (unknown) (no (unknown) (unknown) Pulse Oximetry (units (unknown) date) 94 98 unknown) (unknown) (no (unknown) (unknown) Pulse Oximetry (units (unknown) date) 95 96 95 unknown) (unknown) (no (unknown) (unknown) Pulse Oximetry (units (unknown) date) 95 unknown) (unknown) (no (unknown) (unknown) Pulse Oximetry (units (unknown) date) 96 94 unknown) (unknown) (no (unknown) (unknown) Pulse Oximetry (units (unknown) date) 98 96 97 unknown) (unknown) (no (unknown) (unknown) Pulse Oximetry (units (unknown) date) 98 97 98 unknown) (unknown) (no (unknown) (unknown) Pulse Oximetry (units (unknown) date) 98 97 unknown) (unknown) (no (unknown) (unknown) Pulse Oximetry (units (unknown) date) unknown) (unknown) (no (unknown) (unknown) Pulse Rate 100 H (units (unknown) date) 96 H unknown) (unknown) (no (unknown) (unknown) Pulse Rate 103 H (units (unknown) date) 104 H unknown) (unknown) (no (unknown) (unknown) Pulse Rate 104 H (units (unknown) date) 103 H 95 H unknown) (unknown) (no (unknown) (unknown) Pulse Rate 104 H (units (unknown) date) 106 H 99 H unknown) (unknown) (no (unknown) (unknown) Pulse Rate 105 H (units (unknown) date) 103 H unknown) (unknown) (no (unknown) (unknown) Pulse Rate 109 H (units (unknown) date) 94 H 99 H unknown) (unknown) (no (unknown) (unknown) Pulse Rate 110 H (units (unknown) date) unknown) (unknown) (no (unknown) (unknown) Pulse Rate 160 H (units (unknown) date) 133 H unknown) (unknown) (no (unknown) (unknown) Pulse Rate 90 93 (units (unknown) date) H unknown) (unknown) (no (unknown) (unknown) Pulse Rate 93 H (units (unknown) date) 95 H 98 H unknown) (unknown) (no (unknown) (unknown) Pulse Rate 97 H (units (unknown) date) 99 H unknown) (unknown) (no (unknown) (unknown) Pulse Rate 98 H (units (unknown) date) 104 H 103 H unknown) (unknown) (no (unknown) (unknown) Pulse Rate 99 H (units (unknown) date) 99 H 92 H unknown) (unknown) (no (unknown) (unknown) RBC 2.89 L (units (unk nown) date) unknown) (unknown) (no (unknown) (unknown) RBC Morphology (units (unknown) date) See below unknown) (unknown) (no (unknown) (unknown) RBC Morphology (units (unknown) date) unknown) (unknown) (no (unknown) (unknown) RBC (units (unkno wn) date) unknown) (unknown) (no (unknown) (unknown) RDW 20.1 H (units (unk nown) date) unknown) (unknown) (no (unknown) (unknown) RDW (units (unkno wn) date) unknown) (unknown) (no (unknown) (unknown) ROS: Yes All (units (u nknown) date) systems reviewed unknown) with the patient and are negative except as (unknown) (no (unknown) (unknown) Reason for (units (unk nown) date) consult: GI unknown) bleeding and anemia (unknown) (no (unknown) (unknown) Requesting (units (unk nown) date) provider: Stevo Lewis (unknown) (no (unknown) (unknown) Respiratory Rate (units (unknown) date) 13 19 unknown) (unknown) (no (unknown) (unknown) Respiratory Rate (units (unknown) date) 14 18 14 unknown) (unknown) (no (unknown) (unknown) Respiratory Rate (units (unknown) date) 16 unknown) (unknown) (no (unknown) (unknown) Respiratory Rate (units (unknown) date) 17 31 H unknown) (unknown) (no (unknown) (unknown) Respiratory Rate (units (unknown) date) 18 23 unknown) (unknown) (no (unknown) (unknown) Respiratory Rate (units (unknown) date) 22 21 unknown) (unknown) (no (unknown) (unknown) Respiratory Rate (units (unknown) date) 24 48 H unknown) (unknown) (no (unknown) (unknown) Respiratory Rate (units (unknown) date) 27 H 23 26 H unknown) (unknown) (no (unknown) (unknown) Respiratory Rate (units (unknown) date) 29 H 23 unknown) (unknown) (no (unknown) (unknown) Respiratory Rate (units (unknown) date) 32 H 23 26 H unknown) (unknown) (no (unknown) (unknown) Respiratory Rate (units (unknown) date) 32 H unknown) (unknown) (no (unknown) (unknown) Respiratory Rate (units (unknown) date) 36 H 19 39 H unknown) (unknown) (no (unknown) (unknown) Respiratory Rate (units (unknown) date) 42 H 29 H 21 unknown) (unknown) (no (unknown) (unknown) Restless leg (units (u nknown) date) syndrome unknown) (unknown) (no (unknown) (unknown) Result Diagrams: (units (unknown) date) unknown) (unknown) (no (unknown) (unknown) Review of (units (unkn own) date) Systems unknown) (unknown) (no (unknown) (unknown) Right-sided low (units (unknown) date) back pain with unknown) sciatica (unknown) (no (unknown) (unknown) Rx (units (unkno wn) date) unknown) (unknown) (no (unknown) (unknown) SaO2/FiO2 Ratio (units (unknown) date) 235 unknown) (unknown) (no (unknown) (unknown) Signed By: (units (unk nown) date) unknown) (unknown) (no (unknown) (unknown) Smoking Status: (units (unknown) date) Current every day unknown) smoker (unknown) (no (unknown) (unknown) Sodium 136 L (units (u nknown) date) unknown) (unknown) (no (unknown) (unknown) Sodium (units (unkno wn) date) unknown) (unknown) (no (unknown) (unknown) Staph skin (units (unk nown) date) infection unknown) (unknown) (no (unknown) (unknown) Surgical History (units (unknown) date) (Reviewed unknown) 01/23/22 @ 10:31 by Anne-Marie Clancy MD) (unknown) (no (unknown) (unknown) Tachycardia (units (un known) date) unknown) (unknown) (no (unknown) (unknown) Temperature 98.2 (units (unknown) date) F unknown) (unknown) (no (unknown) (unknown) Temperature 98.5 (units (unknown) date) F unknown) (unknown) (no (unknown) (unknown) Temperature 98.7 (units (unknown) date) F unknown) (unknown) (no (unknown) (unknown) Temperature (units (un known) date) unknown) (unknown) (no (unknown) (unknown) Time Patient (units (u nknown) date) Seen: 10:27 unknown) (unknown) (no (unknown) (unknown) Time Spent With (units (unknown) date) Patient unknown) (unknown) (no (unknown) (unknown) Tobacco + (units (unkn own) date) Substance Use unknown) (unknown) (no (unknown) (unknown) Vital Signs (units (un known) date) unknown) (unknown) (no (unknown) (unknown) WBC 10.1 (units (unkno wn) date) unknown) (unknown) (no (unknown) (unknown) WBC (units (unkno wn) date) unknown) (unknown) (no (unknown) (unknown) [Embedded Image (units (unknown) date) Not Available] unknown) (unknown) (no (unknown) (unknown) [From NASONEX] (units (unknown) date) unknown) (unknown) (no (unknown) (unknown) aerosol inhaler (units (unknown) date) (Ventolin HFA) unknown) shortness of breath or wheezing (unknown) (no (unknown) (unknown) age a bowel prep (units (unknown) date) was done to do unknown) colonoscopy at the same time. On exam today (and (unknown) (no (unknown) (unknown) albuterol (units (unkn own) date) sulfate 90 unknown) mcg/actuation 1 puff inhalation Q6H PRN 11/14/21 01/21/22 (unknown) (no (unknown) (unknown) alcohol intake: (units (unknown) date) current unknown) (unknown) (no (unknown) (unknown) amlodipine 5 mg (units (unknown) date) tablet 5 mg PO unknown) BID 01/02/22 01/21/22 History (unknown) (no (unknown) (unknown) angustifolia) (units ( unknown) date) sinus unknown) (unknown) (no (unknown) (unknown) anxiety, SBO, (units ( unknown) date) productive cough unknown) (unknown) (no (unknown) (unknown) breathe (units (unkno wn) date) unknown) (unknown) (no (unknown) (unknown) breathing (units (unkn own) date) unknown) (unknown) (no (unknown) (unknown) cannot (units (unkno wn) date) unknown) (unknown) (no (unknown) (unknown) clobetasol 0.05 (units (unknown) date) % scalp solution unknown) 1 applic topical BEDTIME #25 mL 03/03/21 (unknown) (no (unknown) (unknown) closes, (units (unkno wn) date) unknown) (unknown) (no (unknown) (unknown) congestion (units (unk nown) date) unknown) (unknown) (no (unknown) (unknown) considering she (units (unknown) date) was not on home unknown) O2) we have cancelled her case in order to (unknown) (no (unknown) (unknown) grass pollen (units (u nknown) date) Allergy sinus unknown) Verified 01/23/22 10:11 (unknown) (no (unknown) (unknown) history of coffee (units (unknown) date) ground emesis unknown) with dark stools suggestive of UGI source. Given (unknown) (no (unknown) (unknown) improve (units (unkno wn) date) respiratory unknown) status. Discussed with patient and she agrees . 2 days of (unknown) (no (unknown) (unknown) inpatient (units (unkn own) date) observation, unknown) there has been no more bleeding. (unknown) (no (unknown) (unknown) lavender (units (unkno wn) date) (Lavandula unknown) Allergy severe Verified 01/23/22 10:11 (unknown) (no (unknown) (unknown) metoprolol (units (unk nown) date) succinate 50 mg unknown) 50 mg PO BID #180 tabs 01/02/22 01/21/22 Rx (unknown) (no (unknown) (unknown) mometasone (units (unk nown) date) furoate Allergy unknown) Unknown Verified 01/23/22 10:11 (unknown) (no (unknown) (unknown) otherwise (units (unkn own) date) documented unknown) (unknown) (no (unknown) (unknown) pine tanya Allergy (units (unknown) date) Severe throat unknown) Uncoded 01/23/22 10:11 (unknown) (no (unknown) (unknown) pramipexole 0.25 (units (unknown) date) mg tablet 0.25 mg unknown) PO BEDTIME #90 tabs 01/02/22 01/21/22 Rx (unknown) (no (unknown) (unknown) quit status: has (units (unknown) date) quit before unknown) (unknown) (no (unknown) (unknown) release 24 hr (units ( unknown) date) (Detrol LA) unknown) (unknown) (no (unknown) (unknown) rivaroxaban 20 (units (unknown) date) mg tablet unknown) (Xarelto) 20 mg PO DAILY 01/21/22 01/21/22 History (unknown) (no (unknown) (unknown) spironolactone (units (unknown) date) 25 mg tablet 25 unknown) mg PO DAILY 03/03/21 01/21/22 History (unknown) (no (unknown) (unknown) swelling, (units (unkn own) date) unknown) (unknown) (no (unknown) (unknown) tablet,extended (units (unknown) date) release 24 hr unknown) (unknown) (no (unknown) (unknown) tiotropium (units (unk nown) date) bromide 18 mcg unknown) capsule 1 cap inhalation DAILY #90 10/28/20 01/21/22 (unknown) (no (unknown) (unknown) today; this time (units (unknown) date) is exclusive of unknown) procedural time. (unknown) (no (unknown) (unknown) tolterodine 2 mg (units (unknown) date) capsule,extended unknown) 2 mg PO BEDTIME #90 caps 01/02/22 01/21/22 Rx (unknown) (no (unknown) (unknown) trouble (units (unkno wn) date) unknown) (unknown) (no (unknown) (unknown) with HandiHaler) (units (unknown) date) unknown) (unknown) (no (unknown) (unknown) with inhalation (units (unknown) date) device (Spiriva unknown) inhalations Result panel 68 (unknown) (no (unknown) (unknown) (no value) (units (unk nown) date) unknown) (unknown) (no (unknown) (unknown) #18 grams (units (unkn own) date) unknown) (unknown) (no (unknown) (unknown) (Mirapex) (units (unkn own) date) unknown) (unknown) (no (unknown) (unknown) (past 8 hours): (units (unknown) date) unknown) (unknown) (no (unknown) (unknown) 02:28 01/23/22 (units (unknown) date) unknown) (unknown) (no (unknown) (unknown) 02:30 (units (unkno wn) date) unknown) (unknown) (no (unknown) (unknown) 02:45 01/23/22 (units (unknown) date) unknown) (unknown) (no (unknown) (unknown) 03:00 01/23/22 (units (unknown) date) unknown) (unknown) (no (unknown) (unknown) 03:00 (units (unkno wn) date) unknown) (unknown) (no (unknown) (unknown) 03:15 01/23/22 (units (unknown) date) unknown) (unknown) (no (unknown) (unknown) 03:30 01/23/22 (units (unknown) date) unknown) (unknown) (no (unknown) (unknown) 03:45 (units (unkno wn) date) unknown) (unknown) (no (unknown) (unknown) 04:00 01/23/22 (units (unknown) date) unknown) (unknown) (no (unknown) (unknown) 04:15 (units (unkno wn) date) unknown) (unknown) (no (unknown) (unknown) 04:22 01/23/22 (units (unknown) date) unknown) (unknown) (no (unknown) (unknown) 04:24 01/23/22 (units (unknown) date) unknown) (unknown) (no (unknown) (unknown) 04:30 (units (unkno wn) date) unknown) (unknown) (no (unknown) (unknown) 04:45 01/23/22 (units (unknown) date) unknown) (unknown) (no (unknown) (unknown) 05:00 01/23/22 (units (unknown) date) unknown) (unknown) (no (unknown) (unknown) 05:15 (units (unkno wn) date) unknown) (unknown) (no (unknown) (unknown) 05:30 01/23/22 (units (unknown) date) unknown) (unknown) (no (unknown) (unknown) 05:45 01/23/22 (units (unknown) date) unknown) (unknown) (no (unknown) (unknown) 05:47 (units (unkno wn) date) unknown) (unknown) (no (unknown) (unknown) 06:00 (units (unkno wn) date) unknown) (unknown) (no (unknown) (unknown) 06:15 01/23/22 (units (unknown) date) unknown) (unknown) (no (unknown) (unknown) 06:30 01/23/22 (units (unknown) date) unknown) (unknown) (no (unknown) (unknown) 06:45 01/23/22 (units (unknown) date) unknown) (unknown) (no (unknown) (unknown) 06:45 (units (unkno wn) date) unknown) (unknown) (no (unknown) (unknown) 07:00 01/23/22 (units (unknown) date) unknown) (unknown) (no (unknown) (unknown) 07:00 (units (unkno wn) date) unknown) (unknown) (no (unknown) (unknown) 07:15 01/23/22 (units (unknown) date) unknown) (unknown) (no (unknown) (unknown) 07:30 (units (unkno wn) date) unknown) (unknown) (no (unknown) (unknown) 07:45 01/23/22 (units (unknown) date) unknown) (unknown) (no (unknown) (unknown) 08:00 01/23/22 (units (unknown) date) unknown) (unknown) (no (unknown) (unknown) 08:08 01/23/22 (units (unknown) date) unknown) (unknown) (no (unknown) (unknown) 08:08 (units (unkno wn) date) unknown) (unknown) (no (unknown) (unknown) 08:10 01/23/22 (units (unknown) date) unknown) (unknown) (no (unknown) (unknown) 08:14 01/23/22 (units (unknown) date) unknown) (unknown) (no (unknown) (unknown) 08:15 01/23/22 (units (unknown) date) unknown) (unknown) (no (unknown) (unknown) 08:47 (units (unkno wn) date) unknown) (unknown) (no (unknown) (unknown) 01/21/22 (units (unkno wn) date) 01/22/22 01/23/22 unknown) (unknown) (no (unknown) (unknown) 01/21/22 Rx (units (un known) date) unknown) (unknown) (no (unknown) (unknown) 01/23/22 05:47 (units (unknown) date) unknown) (unknown) (no (unknown) (unknown) 01/23/22 1037 (units ( unknown) date) unknown) (unknown) (no (unknown) (unknown) 01/23/22 (units (unkno wn) date) unknown) (unknown) (no (unknown) (unknown) 10:01 (units (unkno wn) date) unknown) (unknown) (no (unknown) (unknown) 14:50 18:00 (units (un known) date) 05:47 unknown) (unknown) (no (unknown) (unknown) [id number] (units (unkno wn) date) unknown) (unknown) (no (unknown) (unknown) Abdominal pain (units (unknown) date) unknown) (unknown) (no (unknown) (unknown) Age/Sex: 56 / F (units (unknown) date) unknown) (unknown) (no (unknown) (unknown) Allergic (units (unkno wn) date) dermatitis of unknown) eyelids of both eyes (unknown) (no (unknown) (unknown) Allergies (units (unkn own) date) unknown) (unknown) (no (unknown) (unknown) Allergy/AdvReac (units (unknown) date) Type Severity unknown) Reaction Status Date / Time (unknown) (no (unknown) (unknown) Anemia (units (unkno wn) date) unknown) (unknown) (no (unknown) (unknown) Anisocytosis 2+ (units (unknown) date) H unknown) (unknown) (no (unknown) (unknown) Anisocytosis (units (u nknown) date) unknown) (unknown) (no (unknown) (unknown) Appearance: (units (un known) date) grossly normal unknown) (unknown) (no (unknown) (unknown) Arthritis (units (unkn own) date) (Unknown) unknown) (unknown) (no (unknown) (unknown) Assessment + (units (u nknown) date) Plan narrative: unknown) (unknown) (no (unknown) (unknown) Assessment + (units (u nknown) date) Plan unknown) (unknown) (no (unknown) (unknown) Asthma (Unknown) (units (unknown) date) unknown) (unknown) (no (unknown) (unknown) Asthma (units (unkno wn) date) unknown) (unknown) (no (unknown) (unknown) BUN 10 (units (unkno wn) date) unknown) (unknown) (no (unknown) (unknown) BUN (units (unkno wn) date) unknown) (unknown) (no (unknown) (unknown) BUN/Creatinine (units (unknown) date) Ratio 15.6 unknown) (unknown) (no (unknown) (unknown) BUN/Creatinine (units (unknown) date) Ratio unknown) (unknown) (no (unknown) (unknown) Baso # (Auto) 0 (units (unknown) date) unknown) (unknown) (no (unknown) (unknown) Baso # (Auto) (units ( unknown) date) unknown) (unknown) (no (unknown) (unknown) Baso % (Auto) (units ( unknown) date) 0.3 unknown) (unknown) (no (unknown) (unknown) Baso % (Auto) (units ( unknown) date) unknown) (unknown) (no (unknown) (unknown) Blood Pressure (units (unknown) date) 101/65 unknown) (unknown) (no (unknown) (unknown) Blood Pressure (units (unknown) date) 101/66 unknown) (unknown) (no (unknown) (unknown) Blood Pressure (units (unknown) date) 105/67 unknown) (unknown) (no (unknown) (unknown) Blood Pressure (units (unknown) date) 111/62 unknown) (unknown) (no (unknown) (unknown) Blood Pressure (units (unknown) date) 115/65 unknown) (unknown) (no (unknown) (unknown) Blood Pressure (units (unknown) date) 120/76 unknown) (unknown) (no (unknown) (unknown) Blood Pressure (units (unknown) date) unknown) (unknown) (no (unknown) (unknown) Brought in by (units ( unknown) date) family and found unknown) to have severe anemia, respiratory failure and (unknown) (no (unknown) (unknown) COPD (chronic (units ( unknown) date) obstructive unknown) pulmonary disease) (unknown) (no (unknown) (unknown) COVID-19 status: (units (unknown) date) Negative unknown) (unknown) (no (unknown) (unknown) COVID-19 (units (unkno wn) date) unknown) (unknown) (no (unknown) (unknown) Calcium 7.4 L (units ( unknown) date) unknown) (unknown) (no (unknown) (unknown) Calcium (units (unkno wn) date) unknown) (unknown) (no (unknown) (unknown) Carbon Dioxide (units (unknown) date) 39 H unknown) (unknown) (no (unknown) (unknown) Carbon Dioxide (units (unknown) date) unknown) (unknown) (no (unknown) (unknown) Cardio (units (unkno wn) date) unknown) (unknown) (no (unknown) (unknown) Cardiovascular (units (unknown) date) unknown) (unknown) (no (unknown) (unknown) Cardiovascular: (units (unknown) date) Reports dyspnea unknown) and Reports dyspnea on exertion (unknown) (no (unknown) (unknown) Carpal tunnel (units ( unknown) date) syndrome (-2016) unknown) (unknown) (no (unknown) (unknown) Chest (units (unkno wn) date) unknown) (unknown) (no (unknown) (unknown) Chest: normal (units ( unknown) date) inspection of the unknown) chest (unknown) (no (unknown) (unknown) Chief complaint: (units (unknown) date) Coffee ground unknown) emesis, CHF, +thinners (unknown) (no (unknown) (unknown) Chloride 93 L (units ( unknown) date) unknown) (unknown) (no (unknown) (unknown) Chloride (units (unkno wn) date) unknown) (unknown) (no (unknown) (unknown) Chronic atrial (units (unknown) date) fibrillation unknown) (unknown) (no (unknown) (unknown) Cognition: (units (unk nown) date) normal cognition unknown) (unknown) (no (unknown) (unknown) Const (units (unkno wn) date) unknown) (unknown) (no (unknown) (unknown) Consult Note (units (u nknown) date) unknown) (unknown) (no (unknown) (unknown) Consult details (units (unknown) date) unknown) (unknown) (no (unknown) (unknown) Cor pulmonale (units ( unknown) date) (chronic) unknown) (unknown) (no (unknown) (unknown) Creatinine 0.64 (units (unknown) date) unknown) (unknown) (no (unknown) (unknown) Creatinine (units (unk nown) date) unknown) (unknown) (no (unknown) (unknown) Critical Care (units ( unknown) date) time: unknown) (unknown) (no (unknown) (unknown) Crossmatch See (units (unknown) date) Detail unknown) (unknown) (no (unknown) (unknown) Crossmatch (units (unk nown) date) unknown) (unknown) (no (unknown) (unknown) : 1965 (units (unknown) date) Acct:[id number] unknown) (unknown) (no (unknown) (unknown) Date Patient (units (u nknown) date) Seen: 01/23/22 unknown) (unknown) (no (unknown) (unknown) Date of Service: (units (unknown) date) 01/21/22 unknown) (unknown) (no (unknown) (unknown) Eczema (units (unkno wn) date) unknown) (unknown) (no (unknown) (unknown) Effort + (units (unkno wn) date) Inspection: unknown) cough, labored and tachypneic (unknown) (no (unknown) (unknown) Eos # (Auto) 100 (units (unknown) date) unknown) (unknown) (no (unknown) (unknown) Eos # (Auto) (units (u nknown) date) unknown) (unknown) (no (unknown) (unknown) Eos % (Auto) 0.6 (units (unknown) date) L unknown) (unknown) (no (unknown) (unknown) Eos % (Auto) (units (u nknown) date) unknown) (unknown) (no (unknown) (unknown) Estimated GFR > (units (unknown) date) 60 unknown) (unknown) (no (unknown) (unknown) Estimated GFR (units ( unknown) date) unknown) (unknown) (no (unknown) (unknown) Exam Narrative: (units (unknown) date) unknown) (unknown) (no (unknown) (unknown) Exam (units (unkno wn) date) unknown) (unknown) (no (unknown) (unknown) Extrem (units (unkno wn) date) unknown) (unknown) (no (unknown) (unknown) Family History (units (unknown) date) (Reviewed unknown) 01/23/22 @ 10:31 by Anne-Marie Clancy MD) (unknown) (no (unknown) (unknown) Fraction of (units (un known) date) Inspired Oxygen unknown) 40 (unknown) (no (unknown) (unknown) GI (units (unkno wn) date) unknown) (unknown) (no (unknown) (unknown) General: (units (unkno wn) date) cooperative unknown) (unknown) (no (unknown) (unknown) General: full (units ( unknown) date) ROM unknown) (unknown) (no (unknown) (unknown) General: patient (units (unknown) date) alert, patient unknown) awake and patient oriented x3 (unknown) (no (unknown) (unknown) General: turgor (units (unknown) date) normal unknown) (unknown) (no (unknown) (unknown) Glucose 110 H (units ( unknown) date) unknown) (unknown) (no (unknown) (unknown) Glucose (units (unkno wn) date) unknown) (unknown) (no (unknown) (unknown) HENMT (units (unkno wn) date) unknown) (unknown) (no (unknown) (unknown) Hct 25.4 L 23.7 (units (unknown) date) L unknown) (unknown) (no (unknown) (unknown) Hct (units (unkno wn) date) unknown) (unknown) (no (unknown) (unknown) Head: (units (unkno wn) date) normocephalic and unknown) atraumatic (unknown) (no (unknown) (unknown) Hgb 8.6 L 7.9 L (units (unknown) date) unknown) (unknown) (no (unknown) (unknown) Hgb (units (unkno wn) date) unknown) (unknown) (no (unknown) (unknown) History of (units (unk nown) date) Present Illness unknown) (unknown) (no (unknown) (unknown) History of (units (unk nown) date) hysterectomy for unknown) cancer (unknown) (no (unknown) (unknown) Home Medications (units (unknown) date) and Allergies unknown) (unknown) (no (unknown) (unknown) Home Medications (units (unknown) date) unknown) (unknown) (no (unknown) (unknown) I spent a total (units (unknown) date) of [] minutes of unknown) critical care time on this patient's care (unknown) (no (unknown) (unknown) Impetigo (units (unkno wn) date) unknown) (unknown) (no (unknown) (unknown) Incontinence (units (u nknown) date) unknown) (unknown) (no (unknown) (unknown) Inspection: (units (un known) date) normal to unknown) inspection (unknown) (no (unknown) (unknown) [facility] (units (unknown) date) [address] [place] [address] Street unknown) [place] [address] (unknown) (no (unknown) (unknown) Judgment: (units (unkn own) date) judgment good unknown) (unknown) (no (unknown) (unknown) Laboratory (units (unk nown) date) Results - last 24 unknown) hr (unknown) (no (unknown) (unknown) Labs (units (unkno wn) date) unknown) (unknown) (no (unknown) (unknown) Labs: (units (unkno wn) date) unknown) (unknown) (no (unknown) (unknown) Likely upper Gi (units (unknown) date) bleed now on unknown) protonix. Respiratory condition today is too risky (unknown) (no (unknown) (unknown) Lymph # (Auto) (units (unknown) date) 1500 unknown) (unknown) (no (unknown) (unknown) Lymph # (Auto) (units (unknown) date) unknown) (unknown) (no (unknown) (unknown) Lymph % (Auto) (units (unknown) date) 15.3 L unknown) (unknown) (no (unknown) (unknown) Lymph % (Auto) (units (unknown) date) unknown) (unknown) (no (unknown) (unknown) MCH 27.2 (units (unkno wn) date) unknown) (unknown) (no (unknown) (unknown) MCH (units (unkno wn) date) unknown) (unknown) (no (unknown) (unknown) MCHC 33.2 (units (unkn own) date) unknown) (unknown) (no (unknown) (unknown) MCHC (units (unkno wn) date) unknown) (unknown) (no (unknown) (unknown) MCV 82.2 (units (unkno wn) date) unknown) (unknown) (no (unknown) (unknown) MCV (units (unkno wn) date) unknown) (unknown) (no (unknown) (unknown) Magnesium 1.8 (units ( unknown) date) unknown) (unknown) (no (unknown) (unknown) Magnesium (units (unkn own) date) unknown) (unknown) (no (unknown) (unknown) Medical History (units (unknown) date) (Reviewed unknown) 01/23/22 @ 10:31 by Anne-Marie Clancy MD) (unknown) (no (unknown) (unknown) Medication (units (unk nown) date) Instructions unknown) Recorded Confirmed Type (unknown) (no (unknown) (unknown) Meds (units (unkno wn) date) unknown) (unknown) (no (unknown) (unknown) Mental Status: (units (unknown) date) mental status unknown) grossly normal (unknown) (no (unknown) (unknown) Lyon # (Auto) (units ( unknown) date) 1100 H unknown) (unknown) (no (unknown) (unknown) Lyon # (Auto) (units ( unknown) date) unknown) (unknown) (no (unknown) (unknown) Lyon % (Auto) (units ( unknown) date) 10.4 unknown) (unknown) (no (unknown) (unknown) Lyon % (Auto) (units ( unknown) date) unknown) (unknown) (no (unknown) (unknown) Morbid obesity (units (unknown) date) due to excess unknown) calories (unknown) (no (unknown) (unknown) Mother (units (unknown) date) CVA (cerebral unknown) vascular accident) (unknown) (no (unknown) (unknown) Narrative (units (unkn own) date) unknown) (unknown) (no (unknown) (unknown) Narrative: (units (unk nown) date) unknown) (unknown) (no (unknown) (unknown) Neck (units (unkno wn) date) unknown) (unknown) (no (unknown) (unknown) Neck: trachea (units ( unknown) date) midline unknown) (unknown) (no (unknown) (unknown) Neuro (units (unkno wn) date) unknown) (unknown) (no (unknown) (unknown) Neut # (Auto) (units ( unknown) date) 7400 H unknown) (unknown) (no (unknown) (unknown) Neut # (Auto) (units ( unknown) date) unknown) (unknown) (no (unknown) (unknown) Neut % (Auto) (units ( unknown) date) 73.4 unknown) (unknown) (no (unknown) (unknown) Neut % (Auto) (units ( unknown) date) unknown) (unknown) (no (unknown) (unknown) Nutritional (units (un known) date) Appearance: unknown) overweight (unknown) (no (unknown) (unknown) Objective (units (unkn own) date) unknown) (unknown) (no (unknown) (unknown) Oxygen Delivery (units (unknown) date) Method Oximask unknown) Oximask Simple Mask (unknown) (no (unknown) (unknown) Oxygen Delivery (units (unknown) date) Method Oximask unknown) (unknown) (no (unknown) (unknown) Oxygen Delivery (units (unknown) date) Method Simple unknown) Mask (unknown) (no (unknown) (unknown) Oxygen Delivery (units (unknown) date) Method unknown) (unknown) (no (unknown) (unknown) Oxygen Flow Rate (units (unknown) date) 5 6 unknown) (unknown) (no (unknown) (unknown) Oxygen Flow Rate (units (unknown) date) 5 unknown) (unknown) (no (unknown) (unknown) Oxygen Flow Rate (units (unknown) date) 6 unknown) (unknown) (no (unknown) (unknown) Oxygen Flow Rate (units (unknown) date) 8 unknown) (unknown) (no (unknown) (unknown) Oxygen Flow Rate (units (unknown) date) unknown) (unknown) (no (unknown) (unknown) PFSH (units (unkno wn) date) unknown) (unknown) (no (unknown) (unknown) Patient: (units (unkno wn) date) Rosalba Pabon M unknown) MR#: [id number] (unknown) (no (unknown) (unknown) Plt Count 236 (units ( unknown) date) unknown) (unknown) (no (unknown) (unknown) Plt Count (units (unkn own) date) unknown) (unknown) (no (unknown) (unknown) Potassium 3.3 L (units (unknown) date) unknown) (unknown) (no (unknown) (unknown) Potassium (units (unkn own) date) unknown) (unknown) (no (unknown) (unknown) Provider: (units (unkn own) date) Anne-Marie Clancy unknown) (unknown) (no (unknown) (unknown) Psych (units (unkno wn) date) unknown) (unknown) (no (unknown) (unknown) Pulmonary (units (unkn own) date) hypertension unknown) (unknown) (no (unknown) (unknown) Pulse Oximetry (units (unknown) date) 88 L 94 73 L unknown) (unknown) (no (unknown) (unknown) Pulse Oximetry (units (unknown) date) 88 L 94 unknown) (unknown) (no (unknown) (unknown) Pulse Oximetry (units (unknown) date) 92 83 L 87 L unknown) (unknown) (no (unknown) (unknown) Pulse Oximetry (units (unknown) date) 94 98 unknown) (unknown) (no (unknown) (unknown) Pulse Oximetry (units (unknown) date) 95 96 95 unknown) (unknown) (no (unknown) (unknown) Pulse Oximetry (units (unknown) date) 95 unknown) (unknown) (no (unknown) (unknown) Pulse Oximetry (units (unknown) date) 96 94 unknown) (unknown) (no (unknown) (unknown) Pulse Oximetry (units (unknown) date) 98 96 97 unknown) (unknown) (no (unknown) (unknown) Pulse Oximetry (units (unknown) date) 98 97 98 unknown) (unknown) (no (unknown) (unknown) Pulse Oximetry (units (unknown) date) 98 97 unknown) (unknown) (no (unknown) (unknown) Pulse Oximetry (units (unknown) date) unknown) (unknown) (no (unknown) (unknown) Pulse Rate 100 H (units (unknown) date) 96 H unknown) (unknown) (no (unknown) (unknown) Pulse Rate 103 H (units (unknown) date) 104 H unknown) (unknown) (no (unknown) (unknown) Pulse Rate 104 H (units (unknown) date) 103 H 95 H unknown) (unknown) (no (unknown) (unknown) Pulse Rate 104 H (units (unknown) date) 106 H 99 H unknown) (unknown) (no (unknown) (unknown) Pulse Rate 105 H (units (unknown) date) 103 H unknown) (unknown) (no (unknown) (unknown) Pulse Rate 109 H (units (unknown) date) 94 H 99 H unknown) (unknown) (no (unknown) (unknown) Pulse Rate 110 H (units (unknown) date) unknown) (unknown) (no (unknown) (unknown) Pulse Rate 160 H (units (unknown) date) 133 H unknown) (unknown) (no (unknown) (unknown) Pulse Rate 90 93 (units (unknown) date) H unknown) (unknown) (no (unknown) (unknown) Pulse Rate 93 H (units (unknown) date) 95 H 98 H unknown) (unknown) (no (unknown) (unknown) Pulse Rate 97 H (units (unknown) date) 99 H unknown) (unknown) (no (unknown) (unknown) Pulse Rate 98 H (units (unknown) date) 104 H 103 H unknown) (unknown) (no (unknown) (unknown) Pulse Rate 99 H (units (unknown) date) 99 H 92 H unknown) (unknown) (no (unknown) (unknown) RBC 2.89 L (units (unk nown) date) unknown) (unknown) (no (unknown) (unknown) RBC Morphology (units (unknown) date) See below unknown) (unknown) (no (unknown) (unknown) RBC Morphology (units (unknown) date) unknown) (unknown) (no (unknown) (unknown) RBC (units (unkno wn) date) unknown) (unknown) (no (unknown) (unknown) RDW 20.1 H (units (unk nown) date) unknown) (unknown) (no (unknown) (unknown) RDW (units (unkno wn) date) unknown) (unknown) (no (unknown) (unknown) ROS: Yes All (units (u nknown) date) systems reviewed unknown) with the patient and are negative except as (unknown) (no (unknown) (unknown) Rate: (units (unkno wn) date) tachycardic unknown) (unknown) (no (unknown) (unknown) Reason for (units (unk nown) date) consult: GI unknown) bleeding and anemia (unknown) (no (unknown) (unknown) Recommend: stop (units (unknown) date) ETOH, optimize unknown) respiratory status and COPD. Outpatient EGD and (unknown) (no (unknown) (unknown) Red hair, SOB, (units (unknown) date) productive cough. unknown) (unknown) (no (unknown) (unknown) Requesting (units (unk nown) date) provider: Stevo unknown) Joshua (unknown) (no (unknown) (unknown) Resp (units (unkno wn) date) unknown) (unknown) (no (unknown) (unknown) Respiratory Rate (units (unknown) date) 13 19 unknown) (unknown) (no (unknown) (unknown) Respiratory Rate (units (unknown) date) 14 18 14 unknown) (unknown) (no (unknown) (unknown) Respiratory Rate (units (unknown) date) 16 unknown) (unknown) (no (unknown) (unknown) Respiratory Rate (units (unknown) date) 17 31 H unknown) (unknown) (no (unknown) (unknown) Respiratory Rate (units (unknown) date) 18 23 unknown) (unknown) (no (unknown) (unknown) Respiratory Rate (units (unknown) date) 22 21 unknown) (unknown) (no (unknown) (unknown) Respiratory Rate (units (unknown) date) 24 48 H unknown) (unknown) (no (unknown) (unknown) Respiratory Rate (units (unknown) date) 27 H 23 26 H unknown) (unknown) (no (unknown) (unknown) Respiratory Rate (units (unknown) date) 29 H 23 unknown) (unknown) (no (unknown) (unknown) Respiratory Rate (units (unknown) date) 32 H 23 26 H unknown) (unknown) (no (unknown) (unknown) Respiratory Rate (units (unknown) date) 32 H unknown) (unknown) (no (unknown) (unknown) Respiratory Rate (units (unknown) date) 36 H 19 39 H unknown) (unknown) (no (unknown) (unknown) Respiratory Rate (units (unknown) date) 42 H 29 H 21 unknown) (unknown) (no (unknown) (unknown) Respiratory (units (un known) date) unknown) (unknown) (no (unknown) (unknown) Respiratory: (units (u nknown) date) Reports dyspnea unknown) and Reports dyspnea on exertion (unknown) (no (unknown) (unknown) Restless leg (units (u nknown) date) syndrome unknown) (unknown) (no (unknown) (unknown) Result Diagrams: (units (unknown) date) unknown) (unknown) (no (unknown) (unknown) Review of (units (unkn own) date) Systems unknown) (unknown) (no (unknown) (unknown) Rhythm: regular (units (unknown) date) rhythm unknown) (unknown) (no (unknown) (unknown) Right-sided low (units (unknown) date) back pain with unknown) sciatica (unknown) (no (unknown) (unknown) Rx (units (unkno wn) date) unknown) (unknown) (no (unknown) (unknown) SaO2/FiO2 Ratio (units (unknown) date) 235 unknown) (unknown) (no (unknown) (unknown) Signed (units (unkno wn) date) By:<Electronicall unknown) y signed by Anne-Marie Clancy MD> (unknown) (no (unknown) (unknown) Skin (units (unkno wn) date) unknown) (unknown) (no (unknown) (unknown) Smoking Status: (units (unknown) date) Current every day unknown) smoker (unknown) (no (unknown) (unknown) Sodium 136 L (units (u nknown) date) unknown) (unknown) (no (unknown) (unknown) Sodium (units (unkno wn) date) unknown) (unknown) (no (unknown) (unknown) Staph skin (units (unk nown) date) infection unknown) (unknown) (no (unknown) (unknown) Surgical History (units (unknown) date) (Reviewed unknown) 01/23/22 @ 10:31 by Anne-Marie Clancy MD) (unknown) (no (unknown) (unknown) Tachycardia (units (un known) date) unknown) (unknown) (no (unknown) (unknown) Temperature 98.2 (units (unknown) date) F unknown) (unknown) (no (unknown) (unknown) Temperature 98.5 (units (unknown) date) F unknown) (unknown) (no (unknown) (unknown) Temperature 98.7 (units (unknown) date) F unknown) (unknown) (no (unknown) (unknown) Temperature (units (un known) date) unknown) (unknown) (no (unknown) (unknown) Time Patient (units (u nknown) date) Seen: 10:27 unknown) (unknown) (no (unknown) (unknown) Time Spent With (units (unknown) date) Patient unknown) (unknown) (no (unknown) (unknown) Time with (units (unkn own) date) patient: 30 to 51 unknown) minutes with 50% spent counseling/coordi nating care (unknown) (no (unknown) (unknown) Tobacco + (units (unkn own) date) Substance Use unknown) (unknown) (no (unknown) (unknown) Vital Signs (units (un known) date) unknown) (unknown) (no (unknown) (unknown) WBC 10.1 (units (unkno wn) date) unknown) (unknown) (no (unknown) (unknown) WBC (units (unkno wn) date) unknown) (unknown) (no (unknown) (unknown) [Embedded Image (units (unknown) date) Not Available] unknown) (unknown) (no (unknown) (unknown) [From NASONEX] (units (unknown) date) unknown) (unknown) (no (unknown) (unknown) aerosol inhaler (units (unknown) date) (Ventolin HFA) unknown) shortness of breath or wheezing (unknown) (no (unknown) (unknown) age a bowel prep (units (unknown) date) was done to do unknown) colonoscopy at the same time. On exam today (and (unknown) (no (unknown) (unknown) albuterol (units (unkn own) date) sulfate 90 unknown) mcg/actuation 1 puff inhalation Q6H PRN 11/14/21 01/21/22 (unknown) (no (unknown) (unknown) alcohol intake: (units (unknown) date) current unknown) (unknown) (no (unknown) (unknown) amlodipine 5 mg (units (unknown) date) tablet 5 mg PO unknown) BID 01/02/22 01/21/22 History (unknown) (no (unknown) (unknown) angustifolia) (units ( unknown) date) sinus unknown) (unknown) (no (unknown) (unknown) anxiety, SBO, (units ( unknown) date) productive cough unknown) (unknown) (no (unknown) (unknown) breathe (units (unkno wn) date) unknown) (unknown) (no (unknown) (unknown) breathing (units (unkn own) date) unknown) (unknown) (no (unknown) (unknown) cannot (units (unkno wn) date) unknown) (unknown) (no (unknown) (unknown) clobetasol 0.05 (units (unknown) date) % scalp solution unknown) 1 applic topical BEDTIME #25 mL 03/03/21 (unknown) (no (unknown) (unknown) closes, (units (unkno wn) date) unknown) (unknown) (no (unknown) (unknown) colonoscopy as (units (unknown) date) outpatient. unknown) Continue BID PPI. (unknown) (no (unknown) (unknown) congestion (units (unk nown) date) unknown) (unknown) (no (unknown) (unknown) considering she (units (unknown) date) was not on home unknown) O2) we have cancelled her case in order to (unknown) (no (unknown) (unknown) grass pollen (units (u nknown) date) Allergy sinus unknown) Verified 01/23/22 10:11 (unknown) (no (unknown) (unknown) history of coffee (units (unknown) date) ground emesis unknown) with dark stools suggestive of UGI source. Given (unknown) (no (unknown) (unknown) improve (units (unkno wn) date) respiratory unknown) status. Discussed with patient and she agrees . 2 days of (unknown) (no (unknown) (unknown) inpatient (units (unkn own) date) observation, unknown) there has been no more bleeding. (unknown) (no (unknown) (unknown) lavender (units (unkno wn) date) (Lavandula unknown) Allergy severe Verified 01/23/22 10:11 (unknown) (no (unknown) (unknown) metoprolol (units (unk nown) date) succinate 50 mg unknown) 50 mg PO BID #180 tabs 01/02/22 01/21/22 Rx (unknown) (no (unknown) (unknown) mometasone (units (unk nown) date) furoate Allergy unknown) Unknown Verified 01/23/22 10:11 (unknown) (no (unknown) (unknown) otherwise (units (unkn own) date) documented unknown) (unknown) (no (unknown) (unknown) pine tanya Allergy (units (unknown) date) Severe throat unknown) Uncoded 01/23/22 10:11 (unknown) (no (unknown) (unknown) pramipexole 0.25 (units (unknown) date) mg tablet 0.25 mg unknown) PO BEDTIME #90 tabs 01/02/22 01/21/22 Rx (unknown) (no (unknown) (unknown) quit status: has (units (unknown) date) quit before unknown) (unknown) (no (unknown) (unknown) release 24 hr (units ( unknown) date) (Detrol LA) unknown) (unknown) (no (unknown) (unknown) rivaroxaban 20 (units (unknown) date) mg tablet unknown) (Xarelto) 20 mg PO DAILY 01/21/22 01/21/22 History (unknown) (no (unknown) (unknown) spironolactone (units (unknown) date) 25 mg tablet 25 unknown) mg PO DAILY 03/03/21 01/21/22 History (unknown) (no (unknown) (unknown) swelling, (units (unkn own) date) unknown) (unknown) (no (unknown) (unknown) tablet,extended (units (unknown) date) release 24 hr unknown) (unknown) (no (unknown) (unknown) tiotropium (units (unk nown) date) bromide 18 mcg unknown) capsule 1 cap inhalation DAILY #90 10/28/20 01/21/22 (unknown) (no (unknown) (unknown) to proceed with (units (unknown) date) EGD and unknown) colonoscopy today. (unknown) (no (unknown) (unknown) today; this time (units (unknown) date) is exclusive of unknown) procedural time. (unknown) (no (unknown) (unknown) tolterodine 2 mg (units (unknown) date) capsule,extended unknown) 2 mg PO BEDTIME #90 caps 01/02/22 01/21/22 Rx (unknown) (no (unknown) (unknown) trouble (units (unkno wn) date) unknown) (unknown) (no (unknown) (unknown) with HandiHaler) (units (unknown) date) unknown) (unknown) (no (unknown) (unknown) with inhalation (units (unknown) date) device (Spiriva unknown) inhalations Result panel 69 (unknown) (no (unknown) (unknown) (no value) (units (unk nown) date) unknown) (unknown) (no (unknown) (unknown) (past 8 hours): (units (unknown) date) unknown) (unknown) (no (unknown) (unknown) -discussed with (units (unknown) date) anesthesia and unknown) surgery, cancel procedure. Patient tolerated (unknown) (no (unknown) (unknown) 05:47 05:47 (units (un known) date) unknown) (unknown) (no (unknown) (unknown) 01/23/22 05:47 (units (unknown) date) unknown) (unknown) (no (unknown) (unknown) 01/23/22 01/23/22 (units (unknown) date) unknown) (unknown) (no (unknown) (unknown) 01/23/22 (units (unkno wn) date) unknown) (unknown) (no (unknown) (unknown) 11:00 01/23/22 (units (unknown) date) unknown) (unknown) (no (unknown) (unknown) 11:15 (units (unkno wn) date) unknown) (unknown) (no (unknown) (unknown) 11:30 01/23/22 (units (unknown) date) unknown) (unknown) (no (unknown) (unknown) 11:45 01/23/22 (units (unknown) date) unknown) (unknown) (no (unknown) (unknown) 12:00 (units (unkno wn) date) unknown) (unknown) (no (unknown) (unknown) 12:10 01/23/22 (units (unknown) date) unknown) (unknown) (no (unknown) (unknown) 12:11 01/23/22 (units (unknown) date) unknown) (unknown) (no (unknown) (unknown) 12:11 (units (unkno wn) date) unknown) (unknown) (no (unknown) (unknown) 12:12 01/23/22 (units (unknown) date) unknown) (unknown) (no (unknown) (unknown) 12:12 (units (unkno wn) date) unknown) (unknown) (no (unknown) (unknown) 12:15 01/23/22 (units (unknown) date) unknown) (unknown) (no (unknown) (unknown) 12:30 01/23/22 (units (unknown) date) unknown) (unknown) (no (unknown) (unknown) 12:44 01/23/22 (units (unknown) date) unknown) (unknown) (no (unknown) (unknown) 12:44 (units (unkno wn) date) unknown) (unknown) (no (unknown) (unknown) 12:45 01/23/22 (units (unknown) date) unknown) (unknown) (no (unknown) (unknown) 13:00 (units (unkno wn) date) unknown) (unknown) (no (unknown) (unknown) 13:15 01/23/22 (units (unknown) date) unknown) (unknown) (no (unknown) (unknown) 13:30 01/23/22 (units (unknown) date) unknown) (unknown) (no (unknown) (unknown) 13:37 01/23/22 (units (unknown) date) unknown) (unknown) (no (unknown) (unknown) 13:41 (units (unkno wn) date) unknown) (unknown) (no (unknown) (unknown) 13:45 (units (unkno wn) date) unknown) (unknown) (no (unknown) (unknown) 14:00 01/23/22 (units (unknown) date) unknown) (unknown) (no (unknown) (unknown) 14:06 01/23/22 (units (unknown) date) unknown) (unknown) (no (unknown) (unknown) 14:06 (units (unkno wn) date) unknown) (unknown) (no (unknown) (unknown) 14:15 01/23/22 (units (unknown) date) unknown) (unknown) (no (unknown) (unknown) 14:30 01/23/22 (units (unknown) date) unknown) (unknown) (no (unknown) (unknown) 14:45 (units (unkno wn) date) unknown) (unknown) (no (unknown) (unknown) 14:59 01/23/22 (units (unknown) date) unknown) (unknown) (no (unknown) (unknown) 15:00 01/23/22 (units (unknown) date) unknown) (unknown) (no (unknown) (unknown) 15:15 (units (unkno wn) date) unknown) (unknown) (no (unknown) (unknown) 15:30 01/23/22 (units (unknown) date) unknown) (unknown) (no (unknown) (unknown) 15:45 01/23/22 (units (unknown) date) unknown) (unknown) (no (unknown) (unknown) 15:53 01/23/22 (units (unknown) date) unknown) (unknown) (no (unknown) (unknown) 15:54 (units (unkno wn) date) unknown) (unknown) (no (unknown) (unknown) 16:00 (units (unkno wn) date) unknown) (unknown) (no (unknown) (unknown) 16:01 01/23/22 (units (unknown) date) unknown) (unknown) (no (unknown) (unknown) 16:02 01/23/22 (units (unknown) date) unknown) (unknown) (no (unknown) (unknown) 16:02 (units (unkno wn) date) unknown) (unknown) (no (unknown) (unknown) 16:15 01/23/22 (units (unknown) date) unknown) (unknown) (no (unknown) (unknown) 16:30 (units (unkno wn) date) unknown) (unknown) (no (unknown) (unknown) 16:45 01/23/22 (units (unknown) date) unknown) (unknown) (no (unknown) (unknown) 16:57 01/23/22 (units (unknown) date) unknown) (unknown) (no (unknown) (unknown) 16:57 (units (unkno wn) date) unknown) (unknown) (no (unknown) (unknown) 17:00 01/23/22 (units (unknown) date) unknown) (unknown) (no (unknown) (unknown) 17:01 01/23/22 (units (unknown) date) unknown) (unknown) (no (unknown) (unknown) 17:15 (units (unkno wn) date) unknown) (unknown) (no (unknown) (unknown) 17:30 01/23/22 (units (unknown) date) unknown) (unknown) (no (unknown) (unknown) 17:31 01/23/22 (units (unknown) date) unknown) (unknown) (no (unknown) (unknown) 17:31 (units (unkno wn) date) unknown) (unknown) (no (unknown) (unknown) 17:33 01/23/22 (units (unknown) date) unknown) (unknown) (no (unknown) (unknown) 17:45 01/23/22 (units (unknown) date) unknown) (unknown) (no (unknown) (unknown) 18:38 (units (unkno wn) date) unknown) (unknown) (no (unknown) (unknown) 18120 (units (unkno wn) date) unknown) (unknown) (no (unknown) (unknown) Abdominal pain (units (unknown) date) unknown) (unknown) (no (unknown) (unknown) Age/Sex: 56 / F (units (unknown) date) unknown) (unknown) (no (unknown) (unknown) Allergic (units (unkno wn) date) dermatitis of unknown) eyelids of both eyes (unknown) (no (unknown) (unknown) Anemia (units (unkno wn) date) unknown) (unknown) (no (unknown) (unknown) Anisocytosis 2+ H (units (unknown) date) unknown) (unknown) (no (unknown) (unknown) Arthritis (units (unkn own) date) (Unknown) unknown) (unknown) (no (unknown) (unknown) Assessment + Plan (units (unknown) date) unknown) (unknown) (no (unknown) (unknown) Asthma (Unknown) (units (unknown) date) unknown) (unknown) (no (unknown) (unknown) Asthma (units (unkno wn) date) unknown) (unknown) (no (unknown) (unknown) BUN 10 (units (unkno wn) date) unknown) (unknown) (no (unknown) (unknown) BUN/Creatinine (units (unknown) date) Ratio 15.6 unknown) (unknown) (no (unknown) (unknown) Baso # (Auto) 0 (units (unknown) date) unknown) (unknown) (no (unknown) (unknown) Baso % (Auto) 0.3 (units (unknown) date) unknown) (unknown) (no (unknown) (unknown) Blood Pressure (units (unknown) date) 103/54 L unknown) (unknown) (no (unknown) (unknown) Blood Pressure (units (unknown) date) 104/77 unknown) (unknown) (no (unknown) (unknown) Blood Pressure (units (unknown) date) 106/58 L unknown) (unknown) (no (unknown) (unknown) Blood Pressure (units (unknown) date) 107/53 L 109/56 L unknown) (unknown) (no (unknown) (unknown) Blood Pressure (units (unknown) date) 109/56 L unknown) (unknown) (no (unknown) (unknown) Blood Pressure (units (unknown) date) 114/64 unknown) (unknown) (no (unknown) (unknown) Blood Pressure (units (unknown) date) 121/53 L unknown) (unknown) (no (unknown) (unknown) Blood Pressure (units (unknown) date) 75/52 L 118/57 L unknown) (unknown) (no (unknown) (unknown) Blood Pressure (units (unknown) date) 84/48 L unknown) (unknown) (no (unknown) (unknown) Blood Pressure (units (unknown) date) 99/52 L unknown) (unknown) (no (unknown) (unknown) Blood Pressure (units (unknown) date) unknown) (unknown) (no (unknown) (unknown) COPD (chronic (units ( unknown) date) obstructive unknown) pulmonary disease) (unknown) (no (unknown) (unknown) Calcium 7.4 L (units ( unknown) date) unknown) (unknown) (no (unknown) (unknown) Carbon Dioxide 39 (units (unknown) date) H unknown) (unknown) (no (unknown) (unknown) Carpal tunnel (units ( unknown) date) syndrome (-2017) unknown) (unknown) (no (unknown) (unknown) Chloride 93 L (units ( unknown) date) unknown) (unknown) (no (unknown) (unknown) Chronic atrial (units (unknown) date) fibrillation unknown) (unknown) (no (unknown) (unknown) Cor pulmonale (units ( unknown) date) (chronic) unknown) (unknown) (no (unknown) (unknown) Creatinine 0.64 (units (unknown) date) unknown) (unknown) (no (unknown) (unknown) Critical Care (units ( unknown) date) time: unknown) (unknown) (no (unknown) (unknown) : 1965 (units (unknown) date) Acct:[id number] unknown) (unknown) (no (unknown) (unknown) Date Patient (units (u nknown) date) Seen: 01/23/22 unknown) (unknown) (no (unknown) (unknown) Date of Service: (units (unknown) date) 01/21/22 unknown) (unknown) (no (unknown) (unknown) Eczema (units (unkno wn) date) unknown) (unknown) (no (unknown) (unknown) Eos # (Auto) 100 (units (unknown) date) unknown) (unknown) (no (unknown) (unknown) Eos % (Auto) 0.6 (units (unknown) date) L unknown) (unknown) (no (unknown) (unknown) Estimated GFR > (units (unknown) date) 60 unknown) (unknown) (no (unknown) (unknown) Exam Narrative: (units (unknown) date) unknown) (unknown) (no (unknown) (unknown) Exam (units (unkno wn) date) unknown) (unknown) (no (unknown) (unknown) Family History (units (unknown) date) (Reviewed 01/23/22 unknown) @ 10:31 by Anne-Marie Clancy MD) (unknown) (no (unknown) (unknown) Fraction of (units (un known) date) Inspired Oxygen 40 unknown) (unknown) (no (unknown) (unknown) Glucose 110 H (units ( unknown) date) unknown) (unknown) (no (unknown) (unknown) Hct 23.7 L (units (unk nown) date) unknown) (unknown) (no (unknown) (unknown) Hgb 7.9 L (units (unkn own) date) unknown) (unknown) (no (unknown) (unknown) History of (units (unk nown) date) hysterectomy for unknown) cancer (unknown) (no (unknown) (unknown) I spent a total (units (unknown) date) of [] minutes of unknown) critical care time on this patient's care (unknown) (no (unknown) (unknown) Impetigo (units (unkno wn) date) unknown) (unknown) (no (unknown) (unknown) Incontinence (units (u nknown) date) unknown) (unknown) (no (unknown) (unknown) Interval history: (units (unknown) date) unknown) (unknown) (no (unknown) (unknown) [facility] (units (unknown) date) [address] unknown) [place] [address] (unknown) (no (unknown) (unknown) Laboratory (units (unk nown) date) Results - last 24 unknown) hr (unknown) (no (unknown) (unknown) Labs (units (unkno wn) date) unknown) (unknown) (no (unknown) (unknown) Labs: (units (unkno wn) date) unknown) (unknown) (no (unknown) (unknown) Lymph # (Auto) (units (unknown) date) 1500 unknown) (unknown) (no (unknown) (unknown) Lymph % (Auto) (units (unknown) date) 15.3 L unknown) (unknown) (no (unknown) (unknown) MCH 27.2 (units (unkno wn) date) unknown) (unknown) (no (unknown) (unknown) MCHC 33.2 (units (unkn own) date) unknown) (unknown) (no (unknown) (unknown) MCV 82.2 (units (unkno wn) date) unknown) (unknown) (no (unknown) (unknown) Magnesium 1.8 (units ( unknown) date) unknown) (unknown) (no (unknown) (unknown) Medical History (units (unknown) date) (Reviewed 01/23/22 unknown) @ 10:31 by Anne-Marie Clancy MD) (unknown) (no (unknown) (unknown) Lyon # (Auto) (units ( unknown) date) 1100 H unknown) (unknown) (no (unknown) (unknown) Lyon % (Auto) (units ( unknown) date) 10.4 unknown) (unknown) (no (unknown) (unknown) Morbid obesity (units (unknown) date) due to excess unknown) calories (unknown) (no (unknown) (unknown) Morbidly obese, (units (unknown) date) requiring 2 L unknown) nasal cannula, decreased air entry on both lung (unknown) (no (unknown) (unknown) Mother (units (unknown) date) CVA (cerebral unknown) vascular accident) (unknown) (no (unknown) (unknown) Narrative (units (unkn own) date) unknown) (unknown) (no (unknown) (unknown) Neut # (Auto) (units ( unknown) date) 7400 H unknown) (unknown) (no (unknown) (unknown) Neut % (Auto) (units ( unknown) date) 73.4 unknown) (unknown) (no (unknown) (unknown) Objective (units (unkn own) date) unknown) (unknown) (no (unknown) (unknown) Oxygen Delivery (units (unknown) date) Method Oximask unknown) Nasal Cannula Oximask (unknown) (no (unknown) (unknown) Oxygen Delivery (units (unknown) date) Method Oximask unknown) (unknown) (no (unknown) (unknown) Oxygen Delivery (units (unknown) date) Method unknown) (unknown) (no (unknown) (unknown) Oxygen Flow Rate (units (unknown) date) 4 unknown) (unknown) (no (unknown) (unknown) Oxygen Flow Rate (units (unknown) date) 5 unknown) (unknown) (no (unknown) (unknown) Oxygen Flow Rate (units (unknown) date) 6 6 4 unknown) (unknown) (no (unknown) (unknown) Oxygen Flow Rate (units (unknown) date) 6 unknown) (unknown) (no (unknown) (unknown) Oxygen Flow Rate (units (unknown) date) unknown) (unknown) (no (unknown) (unknown) PFSH (units (unkno wn) date) unknown) (unknown) (no (unknown) (unknown) Patient did not (units (unknown) date) want to go to unknown) endoscopy this morning, had a long conversation (unknown) (no (unknown) (unknown) Patient: (units (unkno wn) date) Rosalba Pabon MR#: unknown) [id number] (unknown) (no (unknown) (unknown) Plt Count 236 (units ( unknown) date) unknown) (unknown) (no (unknown) (unknown) Potassium 3.3 L (units (unknown) date) unknown) (unknown) (no (unknown) (unknown) Progress Note (units ( unknown) date) unknown) (unknown) (no (unknown) (unknown) Provider: (units (unkn own) date) Kurt Simon unknown) avila STEVENSON (unknown) (no (unknown) (unknown) Pulmonary (units (unkn own) date) hypertension unknown) (unknown) (no (unknown) (unknown) Pulse Oximetry 82 (units (unknown) date) L 91 96 unknown) (unknown) (no (unknown) (unknown) Pulse Oximetry 88 (units (unknown) date) L 81 L unknown) (unknown) (no (unknown) (unknown) Pulse Oximetry 88 (units (unknown) date) L 91 unknown) (unknown) (no (unknown) (unknown) Pulse Oximetry 90 (units (unknown) date) L 96 unknown) (unknown) (no (unknown) (unknown) Pulse Oximetry 91 (units (unknown) date) 95 unknown) (unknown) (no (unknown) (unknown) Pulse Oximetry 92 (units (unknown) date) 91 unknown) (unknown) (no (unknown) (unknown) Pulse Oximetry 92 (units (unknown) date) 92 unknown) (unknown) (no (unknown) (unknown) Pulse Oximetry 94 (units (unknown) date) 88 L unknown) (unknown) (no (unknown) (unknown) Pulse Oximetry 94 (units (unknown) date) 93 unknown) (unknown) (no (unknown) (unknown) Pulse Oximetry 94 (units (unknown) date) unknown) (unknown) (no (unknown) (unknown) Pulse Oximetry 95 (units (unknown) date) 94 95 unknown) (unknown) (no (unknown) (unknown) Pulse Oximetry 96 (units (unknown) date) 82 L 87 L unknown) (unknown) (no (unknown) (unknown) Pulse Oximetry 96 (units (unknown) date) 87 L 94 unknown) (unknown) (no (unknown) (unknown) Pulse Oximetry 96 (units (unknown) date) 96 93 unknown) (unknown) (no (unknown) (unknown) Pulse Oximetry 96 (units (unknown) date) unknown) (unknown) (no (unknown) (unknown) Pulse Oximetry 97 (units (unknown) date) 94 unknown) (unknown) (no (unknown) (unknown) Pulse Oximetry 97 (units (unknown) date) 97 unknown) (unknown) (no (unknown) (unknown) Pulse Oximetry 98 (units (unknown) date) unknown) (unknown) (no (unknown) (unknown) Pulse Oximetry 99 (units (unknown) date) 92 94 unknown) (unknown) (no (unknown) (unknown) Pulse Oximetry (units (unknown) date) unknown) (unknown) (no (unknown) (unknown) Pulse Rate 103 H (units (unknown) date) 110 H unknown) (unknown) (no (unknown) (unknown) Pulse Rate 106 H (units (unknown) date) 108 H unknown) (unknown) (no (unknown) (unknown) Pulse Rate 106 H (units (unknown) date) 110 H unknown) (unknown) (no (unknown) (unknown) Pulse Rate 108 H (units (unknown) date) 112 H 133 H unknown) (unknown) (no (unknown) (unknown) Pulse Rate 108 H (units (unknown) date) 119 H unknown) (unknown) (no (unknown) (unknown) Pulse Rate 109 H (units (unknown) date) 109 H 104 H unknown) (unknown) (no (unknown) (unknown) Pulse Rate 110 H (units (unknown) date) 106 H unknown) (unknown) (no (unknown) (unknown) Pulse Rate 111 H (units (unknown) date) 111 H 120 H unknown) (unknown) (no (unknown) (unknown) Pulse Rate 111 H (units (unknown) date) unknown) (unknown) (no (unknown) (unknown) Pulse Rate 113 H (units (unknown) date) unknown) (unknown) (no (unknown) (unknown) Pulse Rate 114 H (units (unknown) date) 107 H unknown) (unknown) (no (unknown) (unknown) Pulse Rate 114 H (units (unknown) date) 113 H 110 H unknown) (unknown) (no (unknown) (unknown) Pulse Rate 116 H (units (unknown) date) 127 H 116 H unknown) (unknown) (no (unknown) (unknown) Pulse Rate 117 H (units (unknown) date) 113 H unknown) (unknown) (no (unknown) (unknown) Pulse Rate 118 H (units (unknown) date) unknown) (unknown) (no (unknown) (unknown) Pulse Rate 119 H (units (unknown) date) 107 H unknown) (unknown) (no (unknown) (unknown) Pulse Rate 119 H (units (unknown) date) 121 H unknown) (unknown) (no (unknown) (unknown) Pulse Rate 126 H (units (unknown) date) 106 H 107 H unknown) (unknown) (no (unknown) (unknown) Pulse Rate 141 H (units (unknown) date) 114 H unknown) (unknown) (no (unknown) (unknown) Pulse Rate (units (unk nown) date) unknown) (unknown) (no (unknown) (unknown) RBC 2.89 L (units (unk nown) date) unknown) (unknown) (no (unknown) (unknown) RBC Morphology (units (unknown) date) See below unknown) (unknown) (no (unknown) (unknown) RDW 20.1 H (units (unk nown) date) unknown) (unknown) (no (unknown) (unknown) Respiratory Rate (units (unknown) date) 18 23 unknown) (unknown) (no (unknown) (unknown) Respiratory Rate (units (unknown) date) 18 38 H 28 H unknown) (unknown) (no (unknown) (unknown) Respiratory Rate (units (unknown) date) 21 21 unknown) (unknown) (no (unknown) (unknown) Respiratory Rate (units (unknown) date) 21 35 H unknown) (unknown) (no (unknown) (unknown) Respiratory Rate (units (unknown) date) 21 unknown) (unknown) (no (unknown) (unknown) Respiratory Rate (units (unknown) date) 23 25 H 20 unknown) (unknown) (no (unknown) (unknown) Respiratory Rate (units (unknown) date) 24 22 unknown) (unknown) (no (unknown) (unknown) Respiratory Rate (units (unknown) date) 24 25 H 35 H unknown) (unknown) (no (unknown) (unknown) Respiratory Rate (units (unknown) date) 27 H 22 19 unknown) (unknown) (no (unknown) (unknown) Respiratory Rate (units (unknown) date) 28 H 20 unknown) (unknown) (no (unknown) (unknown) Respiratory Rate (units (unknown) date) 28 H unknown) (unknown) (no (unknown) (unknown) Respiratory Rate (units (unknown) date) 29 H 28 H 25 H unknown) (unknown) (no (unknown) (unknown) Respiratory Rate (units (unknown) date) 33 H 21 unknown) (unknown) (no (unknown) (unknown) Respiratory Rate (units (unknown) date) 34 H 22 24 unknown) (unknown) (no (unknown) (unknown) Respiratory Rate (units (unknown) date) 39 H 21 unknown) (unknown) (no (unknown) (unknown) Respiratory Rate (units (unknown) date) 41 H 20 unknown) (unknown) (no (unknown) (unknown) Respiratory Rate (units (unknown) date) 52 H 46 H unknown) (unknown) (no (unknown) (unknown) Respiratory Rate (units (unknown) date) 59 H 26 H unknown) (unknown) (no (unknown) (unknown) Respiratory Rate (units (unknown) date) unknown) (unknown) (no (unknown) (unknown) Restless leg (units (u nknown) date) syndrome unknown) (unknown) (no (unknown) (unknown) Result Diagrams: (units (unknown) date) unknown) (unknown) (no (unknown) (unknown) Review of systems (units (unknown) date) done unknown) (unknown) (no (unknown) (unknown) Right-sided low (units (unknown) date) back pain with unknown) sciatica (unknown) (no (unknown) (unknown) SaO2/FiO2 Ratio (units (unknown) date) 235 unknown) (unknown) (no (unknown) (unknown) Signed By: (units (unk nown) date) unknown) (unknown) (no (unknown) (unknown) Smoking Status: (units (unknown) date) Current every day unknown) smoker (unknown) (no (unknown) (unknown) Social History (units (unknown) date) (Reviewed 01/21/22 unknown) @ 15:14 by Lilian Armstrong DO) (unknown) (no (unknown) (unknown) Sodium 136 L (units (u nknown) date) unknown) (unknown) (no (unknown) (unknown) Staph skin (units (unk nown) date) infection unknown) (unknown) (no (unknown) (unknown) Subjective (units (unk nown) date) unknown) (unknown) (no (unknown) (unknown) Surgical History (units (unknown) date) (Reviewed 01/23/22 unknown) @ 10:31 by Anne-Marie Clancy MD) (unknown) (no (unknown) (unknown) Tachycardia (units (un known) date) unknown) (unknown) (no (unknown) (unknown) Temperature 98.5 (units (unknown) date) F unknown) (unknown) (no (unknown) (unknown) Temperature (units (un known) date) unknown) (unknown) (no (unknown) (unknown) Time Spent With (units (unknown) date) Patient unknown) (unknown) (no (unknown) (unknown) Vital Signs (units (un known) date) unknown) (unknown) (no (unknown) (unknown) WBC 10.1 (units (unkno wn) date) unknown) (unknown) (no (unknown) (unknown) [Embedded Image (units (unknown) date) Not Available] unknown) (unknown) (no (unknown) (unknown) alcohol intake: (units (unknown) date) current unknown) (unknown) (no (unknown) (unknown) and convinced her (units (unknown) date) to go. But patient unknown) did not undergo procedure because of (unknown) (no (unknown) (unknown) concerns for (units (u nknown) date) general anesthesia unknown) and potential prolonged intubation most likely (unknown) (no (unknown) (unknown) diet okay. Other (units (unknown) date) than feeling unknown) anxious denies any other specific symptoms. (unknown) (no (unknown) (unknown) done, negative (units (unknown) date) other than as unknown) mentioned above (unknown) (no (unknown) (unknown) extremities (units (un known) date) constitutional, unknown) cardiovascular, respiratory, GI, neuro, skin exam (unknown) (no (unknown) (unknown) kennedy, no (units (unk nown) date) abdominal unknown) discomfort on examination. Nonpitting pedal edema in lower (unknown) (no (unknown) (unknown) quit status: has (units (unknown) date) quit before unknown) (unknown) (no (unknown) (unknown) related to obesity (units (unknown) date) hypoventilation unknown) syndrome, chronic hypoxic respiratory failure (unknown) (no (unknown) (unknown) today; this time (units (unknown) date) is exclusive of unknown) procedural time. Result panel 70 (unknown) (no (unknown) (unknown) (no value) (units (unk nown) date) unknown) (unknown) (no (unknown) (unknown) (past 8 hours): (units (unknown) date) unknown) (unknown) (no (unknown) (unknown) -discussed with (units (unknown) date) anesthesia and unknown) surgery, cancel procedure. Patient tolerated (unknown) (no (unknown) (unknown) 05:47 05:47 (units (un known) date) unknown) (unknown) (no (unknown) (unknown) 01/23/22 05:47 (units (unknown) date) unknown) (unknown) (no (unknown) (unknown) 01/23/22 01/23/22 (units (unknown) date) unknown) (unknown) (no (unknown) (unknown) 01/23/22 1901 (units ( unknown) date) unknown) (unknown) (no (unknown) (unknown) 01/23/22 (units (unkno wn) date) unknown) (unknown) (no (unknown) (unknown) 11:00 01/23/22 (units (unknown) date) unknown) (unknown) (no (unknown) (unknown) 11:15 (units (unkno wn) date) unknown) (unknown) (no (unknown) (unknown) 11:30 01/23/22 (units (unknown) date) unknown) (unknown) (no (unknown) (unknown) 11:45 01/23/22 (units (unknown) date) unknown) (unknown) (no (unknown) (unknown) 12:00 (units (unkno wn) date) unknown) (unknown) (no (unknown) (unknown) 12:10 01/23/22 (units (unknown) date) unknown) (unknown) (no (unknown) (unknown) 12:11 01/23/22 (units (unknown) date) unknown) (unknown) (no (unknown) (unknown) 12:11 (units (unkno wn) date) unknown) (unknown) (no (unknown) (unknown) 12:12 01/23/22 (units (unknown) date) unknown) (unknown) (no (unknown) (unknown) 12:12 (units (unkno wn) date) unknown) (unknown) (no (unknown) (unknown) 12:15 01/23/22 (units (unknown) date) unknown) (unknown) (no (unknown) (unknown) 12:30 01/23/22 (units (unknown) date) unknown) (unknown) (no (unknown) (unknown) 12:44 01/23/22 (units (unknown) date) unknown) (unknown) (no (unknown) (unknown) 12:44 (units (unkno wn) date) unknown) (unknown) (no (unknown) (unknown) 12:45 01/23/22 (units (unknown) date) unknown) (unknown) (no (unknown) (unknown) 13:00 (units (unkno wn) date) unknown) (unknown) (no (unknown) (unknown) 13:15 01/23/22 (units (unknown) date) unknown) (unknown) (no (unknown) (unknown) 13:30 01/23/22 (units (unknown) date) unknown) (unknown) (no (unknown) (unknown) 13:37 01/23/22 (units (unknown) date) unknown) (unknown) (no (unknown) (unknown) 13:41 (units (unkno wn) date) unknown) (unknown) (no (unknown) (unknown) 13:45 (units (unkno wn) date) unknown) (unknown) (no (unknown) (unknown) 14:00 01/23/22 (units (unknown) date) unknown) (unknown) (no (unknown) (unknown) 14:06 01/23/22 (units (unknown) date) unknown) (unknown) (no (unknown) (unknown) 14:06 (units (unkno wn) date) unknown) (unknown) (no (unknown) (unknown) 14:15 01/23/22 (units (unknown) date) unknown) (unknown) (no (unknown) (unknown) 14:30 01/23/22 (units (unknown) date) unknown) (unknown) (no (unknown) (unknown) 14:45 (units (unkno wn) date) unknown) (unknown) (no (unknown) (unknown) 14:59 01/23/22 (units (unknown) date) unknown) (unknown) (no (unknown) (unknown) 15:00 01/23/22 (units (unknown) date) unknown) (unknown) (no (unknown) (unknown) 15:15 (units (unkno wn) date) unknown) (unknown) (no (unknown) (unknown) 15:30 01/23/22 (units (unknown) date) unknown) (unknown) (no (unknown) (unknown) 15:45 01/23/22 (units (unknown) date) unknown) (unknown) (no (unknown) (unknown) 15:53 01/23/22 (units (unknown) date) unknown) (unknown) (no (unknown) (unknown) 15:54 (units (unkno wn) date) unknown) (unknown) (no (unknown) (unknown) 16:00 (units (unkno wn) date) unknown) (unknown) (no (unknown) (unknown) 16:01 01/23/22 (units (unknown) date) unknown) (unknown) (no (unknown) (unknown) 16:02 01/23/22 (units (unknown) date) unknown) (unknown) (no (unknown) (unknown) 16:02 (units (unkno wn) date) unknown) (unknown) (no (unknown) (unknown) 16:15 01/23/22 (units (unknown) date) unknown) (unknown) (no (unknown) (unknown) 16:30 (units (unkno wn) date) unknown) (unknown) (no (unknown) (unknown) 16:45 01/23/22 (units (unknown) date) unknown) (unknown) (no (unknown) (unknown) 16:57 01/23/22 (units (unknown) date) unknown) (unknown) (no (unknown) (unknown) 16:57 (units (unkno wn) date) unknown) (unknown) (no (unknown) (unknown) 17:00 01/23/22 (units (unknown) date) unknown) (unknown) (no (unknown) (unknown) 17:01 01/23/22 (units (unknown) date) unknown) (unknown) (no (unknown) (unknown) 17:15 (units (unkno wn) date) unknown) (unknown) (no (unknown) (unknown) 17:30 01/23/22 (units (unknown) date) unknown) (unknown) (no (unknown) (unknown) 17:31 01/23/22 (units (unknown) date) unknown) (unknown) (no (unknown) (unknown) 17:31 (units (unkno wn) date) unknown) (unknown) (no (unknown) (unknown) 17:33 01/23/22 (units (unknown) date) unknown) (unknown) (no (unknown) (unknown) 17:45 10/14/22 (units (unknown) date) unknown) (unknown) (no (unknown) (unknown) 18:38 (units (unkno wn) date) unknown) (unknown) (no (unknown) (unknown) [id number] (units (unkno wn) date) unknown) (unknown) (no (unknown) (unknown) ?- continue (units (un known) date) repletion as unknown) needed. likely lower with lasix administration (unknown) (no (unknown) (unknown) ?- hold home (units (u nknown) date) anticoagulation in unknown) setting of bleeding. (unknown) (no (unknown) (unknown) ?- possibly (units (un known) date) secondary to COPD, unknown) acute heart failure with blood administration (unknown) (no (unknown) (unknown) ?-DuoNebs as (units (u nknown) date) needed, continuous unknown) pulse ox, O2 as required for O2 requirements as (unknown) (no (unknown) (unknown) Abdominal pain (units (unknown) date) unknown) (unknown) (no (unknown) (unknown) Acute respiratory (units (unknown) date) failure with unknown) Hypoxia (unknown) (no (unknown) (unknown) Acute symptomatic (units (unknown) date) blood loss anemia unknown) most likely related to upper GI bleed (unknown) (no (unknown) (unknown) Age/Sex: 56 / F (units (unknown) date) unknown) (unknown) (no (unknown) (unknown) Allergic (units (unkno wn) date) dermatitis of unknown) eyelids of both eyes (unknown) (no (unknown) (unknown) Anemia (units (unkno wn) date) unknown) (unknown) (no (unknown) (unknown) Anisocytosis 2+ H (units (unknown) date) unknown) (unknown) (no (unknown) (unknown) Arthritis (units (unkn own) date) (Unknown) unknown) (unknown) (no (unknown) (unknown) Assessment + Plan (units (unknown) date) narrative: unknown) (unknown) (no (unknown) (unknown) Assessment + Plan (units (unknown) date) unknown) (unknown) (no (unknown) (unknown) Asthma (Unknown) (units (unknown) date) unknown) (unknown) (no (unknown) (unknown) Asthma (units (unkno wn) date) unknown) (unknown) (no (unknown) (unknown) BUN 10 (units (unkno wn) date) unknown) (unknown) (no (unknown) (unknown) BUN/Creatinine (units (unknown) date) Ratio 15.6 unknown) (unknown) (no (unknown) (unknown) Baso # (Auto) 0 (units (unknown) date) unknown) (unknown) (no (unknown) (unknown) Baso % (Auto) 0.3 (units (unknown) date) unknown) (unknown) (no (unknown) (unknown) Blood Pressure (units (unknown) date) 103/54 L unknown) (unknown) (no (unknown) (unknown) Blood Pressure (units (unknown) date) 104/77 unknown) (unknown) (no (unknown) (unknown) Blood Pressure (units (unknown) date) 106/58 L unknown) (unknown) (no (unknown) (unknown) Blood Pressure (units (unknown) date) 107/53 L 109/56 L unknown) (unknown) (no (unknown) (unknown) Blood Pressure (units (unknown) date) 109/56 L unknown) (unknown) (no (unknown) (unknown) Blood Pressure (units (unknown) date) 114/64 unknown) (unknown) (no (unknown) (unknown) Blood Pressure (units (unknown) date) 121/53 L unknown) (unknown) (no (unknown) (unknown) Blood Pressure (units (unknown) date) 75/52 L 118/57 L unknown) (unknown) (no (unknown) (unknown) Blood Pressure (units (unknown) date) 84/48 L unknown) (unknown) (no (unknown) (unknown) Blood Pressure (units (unknown) date) 99/52 L unknown) (unknown) (no (unknown) (unknown) Blood Pressure (units (unknown) date) unknown) (unknown) (no (unknown) (unknown) COPD (chronic (units ( unknown) date) obstructive unknown) pulmonary disease) (unknown) (no (unknown) (unknown) COPD with mild (units (unknown) date) exacerbation unknown) (unknown) (no (unknown) (unknown) Calcium 7.4 L (units ( unknown) date) unknown) (unknown) (no (unknown) (unknown) Carbon Dioxide 39 (units (unknown) date) H unknown) (unknown) (no (unknown) (unknown) Care plan (units (unkn own) date) extensively unknown) discussed with the patient and family member at bedside, (unknown) (no (unknown) (unknown) Carpal tunnel (units ( unknown) date) syndrome (-2017) unknown) (unknown) (no (unknown) (unknown) Chloride 93 L (units ( unknown) date) unknown) (unknown) (no (unknown) (unknown) Chronic atrial (units (unknown) date) fibrillation on unknown) anticoagulation (unknown) (no (unknown) (unknown) Chronic atrial (units (unknown) date) fibrillation unknown) (unknown) (no (unknown) (unknown) Cor pulmonale (units ( unknown) date) (chronic) unknown) (unknown) (no (unknown) (unknown) Creatinine 0.64 (units (unknown) date) unknown) (unknown) (no (unknown) (unknown) Critical Care (units ( unknown) date) time: unknown) (unknown) (no (unknown) (unknown) : 1965 (units (unknown) date) Acct:[id number] unknown) (unknown) (no (unknown) (unknown) Date Patient (units (u nknown) date) Seen: 01/23/22 unknown) (unknown) (no (unknown) (unknown) Date of Service: (units (unknown) date) 01/21/22 unknown) (unknown) (no (unknown) (unknown) Eczema (units (unkno wn) date) unknown) (unknown) (no (unknown) (unknown) Eos # (Auto) 100 (units (unknown) date) unknown) (unknown) (no (unknown) (unknown) Eos % (Auto) 0.6 (units (unknown) date) L unknown) (unknown) (no (unknown) (unknown) Estimated GFR > (units (unknown) date) 60 unknown) (unknown) (no (unknown) (unknown) Exam Narrative: (units (unknown) date) unknown) (unknown) (no (unknown) (unknown) Exam (units (unkno wn) date) unknown) (unknown) (no (unknown) (unknown) Family History (units (unknown) date) (Reviewed 01/23/22 unknown) @ 10:31 by Anne-Marie Clancy MD) (unknown) (no (unknown) (unknown) Fraction of (units (un known) date) Inspired Oxygen 40 unknown) (unknown) (no (unknown) (unknown) Glucose 110 H (units ( unknown) date) unknown) (unknown) (no (unknown) (unknown) Hct 23.7 L (units (unk nown) date) unknown) (unknown) (no (unknown) (unknown) Hgb 7.9 L (units (unkn own) date) unknown) (unknown) (no (unknown) (unknown) History of (units (unk nown) date) hysterectomy for unknown) cancer (unknown) (no (unknown) (unknown) Hold (units (unkno wn) date) anticoagulation unknown) given active bleeding, SCDs for DVT prophylaxis, Protonix (unknown) (no (unknown) (unknown) Hypokalemia (units (un known) date) unknown) (unknown) (no (unknown) (unknown) I spent a total (units (unknown) date) of [] minutes of unknown) critical care time on this patient's care (unknown) (no (unknown) (unknown) IV for GI (units (unkn own) date) prophylaxis unknown) (unknown) (no (unknown) (unknown) Impetigo (units (unkno wn) date) unknown) (unknown) (no (unknown) (unknown) Incontinence (units (u nknown) date) unknown) (unknown) (no (unknown) (unknown) Interval history: (units (unknown) date) unknown) (unknown) (no (unknown) (unknown) [facility] (units (unknown) date) [address] unknown) [place] [address] (unknown) (no (unknown) (unknown) Laboratory (units (unk nown) date) Results - last 24 unknown) hr (unknown) (no (unknown) (unknown) Labs (units (unkno wn) date) unknown) (unknown) (no (unknown) (unknown) Labs: (units (unkno wn) date) unknown) (unknown) (no (unknown) (unknown) Lymph # (Auto) (units (unknown) date) 1500 unknown) (unknown) (no (unknown) (unknown) Lymph % (Auto) (units (unknown) date) 15.3 L unknown) (unknown) (no (unknown) (unknown) MCH 27.2 (units (unkno wn) date) unknown) (unknown) (no (unknown) (unknown) MCHC 33.2 (units (unkn own) date) unknown) (unknown) (no (unknown) (unknown) MCV 82.2 (units (unkno wn) date) unknown) (unknown) (no (unknown) (unknown) Magnesium 1.8 (units ( unknown) date) unknown) (unknown) (no (unknown) (unknown) Medical History (units (unknown) date) (Reviewed 01/23/22 unknown) @ 10:31 by Anne-Marie Clancy MD) (unknown) (no (unknown) (unknown) Lyon # (Auto) (units ( unknown) date) 1100 H unknown) (unknown) (no (unknown) (unknown) Lyon % (Auto) (units ( unknown) date) 10.4 unknown) (unknown) (no (unknown) (unknown) Morbid obesity (units (unknown) date) due to excess unknown) calories (unknown) (no (unknown) (unknown) Morbidly obese, (units (unknown) date) requiring 2 L unknown) nasal cannula, decreased air entry on both lung (unknown) (no (unknown) (unknown) Mother (units (unknown) date) CVA (cerebral unknown) vascular accident) (unknown) (no (unknown) (unknown) Narrative (units (unkn own) date) unknown) (unknown) (no (unknown) (unknown) Neut # (Auto) (units ( unknown) date) 7400 H unknown) (unknown) (no (unknown) (unknown) Neut % (Auto) (units ( unknown) date) 73.4 unknown) (unknown) (no (unknown) (unknown) 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 pulmonary hypertension (unknown) (no (unknown) (unknown) Objective (units (unkn own) date) unknown) (unknown) (no (unknown) (unknown) Oxygen Delivery (units (unknown) date) Method Oximask unknown) Nasal Cannula Oximask (unknown) (no (unknown) (unknown) Oxygen Delivery (units (unknown) date) Method Oximask unknown) (unknown) (no (unknown) (unknown) Oxygen Delivery (units (unknown) date) Method unknown) (unknown) (no (unknown) (unknown) Oxygen Flow Rate (units (unknown) date) 4 unknown) (unknown) (no (unknown) (unknown) Oxygen Flow Rate (units (unknown) date) 5 unknown) (unknown) (no (unknown) (unknown) Oxygen Flow Rate (units (unknown) date) 6 6 4 unknown) (unknown) (no (unknown) (unknown) Oxygen Flow Rate (units (unknown) date) 6 unknown) (unknown) (no (unknown) (unknown) Oxygen Flow Rate (units (unknown) date) unknown) (unknown) (no (unknown) (unknown) PFSH (units (unkno wn) date) unknown) (unknown) (no (unknown) (unknown) Patient did not (units (unknown) date) want to go to unknown) endoscopy this morning, had a long conversation (unknown) (no (unknown) (unknown) Patient is full (units (unknown) date) code unknown) (unknown) (no (unknown) (unknown) Patient: (units (unkno wn) date) Rosalba Pabon MR#: unknown) [id number] (unknown) (no (unknown) (unknown) Plt Count 236 (units ( unknown) date) unknown) (unknown) (no (unknown) (unknown) Potassium 3.3 L (units (unknown) date) unknown) (unknown) (no (unknown) (unknown) Progress Note (units ( unknown) date) unknown) (unknown) (no (unknown) (unknown) Provider: (units (unkn own) date) Kurt Simon unknown) avila STEVENSON (unknown) (no (unknown) (unknown) Pulmonary (units (unkn own) date) hypertension unknown) (unknown) (no (unknown) (unknown) Pulse Oximetry 82 (units (unknown) date) L 91 96 unknown) (unknown) (no (unknown) (unknown) Pulse Oximetry 88 (units (unknown) date) L 81 L unknown) (unknown) (no (unknown) (unknown) Pulse Oximetry 88 (units (unknown) date) L 91 unknown) (unknown) (no (unknown) (unknown) Pulse Oximetry 90 (units (unknown) date) L 96 unknown) (unknown) (no (unknown) (unknown) Pulse Oximetry 91 (units (unknown) date) 95 unknown) (unknown) (no (unknown) (unknown) Pulse Oximetry 92 (units (unknown) date) 91 unknown) (unknown) (no (unknown) (unknown) Pulse Oximetry 92 (units (unknown) date) 92 unknown) (unknown) (no (unknown) (unknown) Pulse Oximetry 94 (units (unknown) date) 88 L unknown) (unknown) (no (unknown) (unknown) Pulse Oximetry 94 (units (unknown) date) 93 unknown) (unknown) (no (unknown) (unknown) Pulse Oximetry 94 (units (unknown) date) unknown) (unknown) (no (unknown) (unknown) Pulse Oximetry 95 (units (unknown) date) 94 95 unknown) (unknown) (no (unknown) (unknown) Pulse Oximetry 96 (units (unknown) date) 82 L 87 L unknown) (unknown) (no (unknown) (unknown) Pulse Oximetry 96 (units (unknown) date) 87 L 94 unknown) (unknown) (no (unknown) (unknown) Pulse Oximetry 96 (units (unknown) date) 96 93 unknown) (unknown) (no (unknown) (unknown) Pulse Oximetry 96 (units (unknown) date) unknown) (unknown) (no (unknown) (unknown) Pulse Oximetry 97 (units (unknown) date) 94 unknown) (unknown) (no (unknown) (unknown) Pulse Oximetry 97 (units (unknown) date) 97 unknown) (unknown) (no (unknown) (unknown) Pulse Oximetry 98 (units (unknown) date) unknown) (unknown) (no (unknown) (unknown) Pulse Oximetry 99 (units (unknown) date) 92 94 unknown) (unknown) (no (unknown) (unknown) Pulse Oximetry (units (unknown) date) unknown) (unknown) (no (unknown) (unknown) Pulse Rate 103 H (units (unknown) date) 110 H unknown) (unknown) (no (unknown) (unknown) Pulse Rate 106 H (units (unknown) date) 108 H unknown) (unknown) (no (unknown) (unknown) Pulse Rate 106 H (units (unknown) date) 110 H unknown) (unknown) (no (unknown) (unknown) Pulse Rate 108 H (units (unknown) date) 112 H 133 H unknown) (unknown) (no (unknown) (unknown) Pulse Rate 108 H (units (unknown) date) 119 H unknown) (unknown) (no (unknown) (unknown) Pulse Rate 109 H (units (unknown) date) 109 H 104 H unknown) (unknown) (no (unknown) (unknown) Pulse Rate 110 H (units (unknown) date) 106 H unknown) (unknown) (no (unknown) (unknown) Pulse Rate 111 H (units (unknown) date) 111 H 120 H unknown) (unknown) (no (unknown) (unknown) Pulse Rate 111 H (units (unknown) date) unknown) (unknown) (no (unknown) (unknown) Pulse Rate 113 H (units (unknown) date) unknown) (unknown) (no (unknown) (unknown) Pulse Rate 114 H (units (unknown) date) 107 H unknown) (unknown) (no (unknown) (unknown) Pulse Rate 114 H (units (unknown) date) 113 H 110 H unknown) (unknown) (no (unknown) (unknown) Pulse Rate 116 H (units (unknown) date) 127 H 116 H unknown) (unknown) (no (unknown) (unknown) Pulse Rate 117 H (units (unknown) date) 113 H unknown) (unknown) (no (unknown) (unknown) Pulse Rate 118 H (units (unknown) date) unknown) (unknown) (no (unknown) (unknown) Pulse Rate 119 H (units (unknown) date) 107 H unknown) (unknown) (no (unknown) (unknown) Pulse Rate 119 H (units (unknown) date) 121 H unknown) (unknown) (no (unknown) (unknown) Pulse Rate 126 H (units (unknown) date) 106 H 107 H unknown) (unknown) (no (unknown) (unknown) Pulse Rate 141 H (units (unknown) date) 114 H unknown) (unknown) (no (unknown) (unknown) Pulse Rate (units (unk nown) date) unknown) (unknown) (no (unknown) (unknown) RBC 2.89 L (units (unk nown) date) unknown) (unknown) (no (unknown) (unknown) RBC Morphology (units (unknown) date) See below unknown) (unknown) (no (unknown) (unknown) RDW 20.1 H (units (unk nown) date) unknown) (unknown) (no (unknown) (unknown) Respiratory Rate (units (unknown) date) 18 23 unknown) (unknown) (no (unknown) (unknown) Respiratory Rate (units (unknown) date) 18 38 H 28 H unknown) (unknown) (no (unknown) (unknown) Respiratory Rate (units (unknown) date) 21 21 unknown) (unknown) (no (unknown) (unknown) Respiratory Rate (units (unknown) date) 21 35 H unknown) (unknown) (no (unknown) (unknown) Respiratory Rate (units (unknown) date) 21 unknown) (unknown) (no (unknown) (unknown) Respiratory Rate (units (unknown) date) 23 25 H 20 unknown) (unknown) (no (unknown) (unknown) Respiratory Rate (units (unknown) date) 24 22 unknown) (unknown) (no (unknown) (unknown) Respiratory Rate (units (unknown) date) 24 25 H 35 H unknown) (unknown) (no (unknown) (unknown) Respiratory Rate (units (unknown) date) 27 H 22 19 unknown) (unknown) (no (unknown) (unknown) Respiratory Rate (units (unknown) date) 28 H 20 unknown) (unknown) (no (unknown) (unknown) Respiratory Rate (units (unknown) date) 28 H unknown) (unknown) (no (unknown) (unknown) Respiratory Rate (units (unknown) date) 29 H 28 H 25 H unknown) (unknown) (no (unknown) (unknown) Respiratory Rate (units (unknown) date) 33 H 21 unknown) (unknown) (no (unknown) (unknown) Respiratory Rate (units (unknown) date) 34 H 22 24 unknown) (unknown) (no (unknown) (unknown) Respiratory Rate (units (unknown) date) 39 H 21 unknown) (unknown) (no (unknown) (unknown) Respiratory Rate (units (unknown) date) 41 H 20 unknown) (unknown) (no (unknown) (unknown) Respiratory Rate (units (unknown) date) 52 H 46 H unknown) (unknown) (no (unknown) (unknown) Respiratory Rate (units (unknown) date) 59 H 26 H unknown) (unknown) (no (unknown) (unknown) Respiratory Rate (units (unknown) date) unknown) (unknown) (no (unknown) (unknown) Restless leg (units (u nknown) date) syndrome unknown) (unknown) (no (unknown) (unknown) Result Diagrams: (units (unknown) date) unknown) (unknown) (no (unknown) (unknown) Review of systems (units (unknown) date) done unknown) (unknown) (no (unknown) (unknown) Right-sided low (units (unknown) date) back pain with unknown) sciatica (unknown) (no (unknown) (unknown) SaO2/FiO2 Ratio (units (unknown) date) 235 unknown) (unknown) (no (unknown) (unknown) Signed (units (unkno wn) date) By:<Electronically unknown) signed by Benito Simon MD> (unknown) (no (unknown) (unknown) Smoking Status: (units (unknown) date) Current every day unknown) smoker (unknown) (no (unknown) (unknown) Social History (units (unknown) date) (Reviewed 01/21/22 unknown) @ 15:14 by Lilian Armstrong DO) (unknown) (no (unknown) (unknown) Sodium 136 L (units (u nknown) date) unknown) (unknown) (no (unknown) (unknown) Staph skin (units (unk nown) date) infection unknown) (unknown) (no (unknown) (unknown) Subjective (units (unk nown) date) unknown) (unknown) (no (unknown) (unknown) Surgical History (units (unknown) date) (Reviewed 01/23/22 unknown) @ 10:31 by Anne-Marie Clancy MD) (unknown) (no (unknown) (unknown) Tachycardia (units (un known) date) unknown) (unknown) (no (unknown) (unknown) Temperature 98.5 (units (unknown) date) F unknown) (unknown) (no (unknown) (unknown) Temperature (units (un known) date) unknown) (unknown) (no (unknown) (unknown) Time Spent With (units (unknown) date) Patient unknown) (unknown) (no (unknown) (unknown) Vital Signs (units (un known) date) unknown) (unknown) (no (unknown) (unknown) WBC 10.1 (units (unkno wn) date) unknown) (unknown) (no (unknown) (unknown) [Embedded Image (units (unknown) date) Not Available] unknown) (unknown) (no (unknown) (unknown) alcohol intake: (units (unknown) date) current unknown) (unknown) (no (unknown) (unknown) and convinced her (units (unknown) date) to go. But patient unknown) did not undergo procedure because of (unknown) (no (unknown) (unknown) answered all (units (u nknown) date) questions unknown) (unknown) (no (unknown) (unknown) concerns for (units (u nknown) date) general anesthesia unknown) and potential prolonged intubation most likely (unknown) (no (unknown) (unknown) diet okay. Other (units (unknown) date) than feeling unknown) anxious denies any other specific symptoms. (unknown) (no (unknown) (unknown) done, negative (units (unknown) date) other than as unknown) mentioned above (unknown) (no (unknown) (unknown) extremities (units (un known) date) constitutional, unknown) cardiovascular, respiratory, GI, neuro, skin exam (unknown) (no (unknown) (unknown) kennedy, no (units (unk nown) date) abdominal unknown) discomfort on examination. Nonpitting pedal edema in lower (unknown) (no (unknown) (unknown) hematocrit stable (units (unknown) date) potential unknown) discharge tomorrow (unknown) (no (unknown) (unknown) noted below. (units (u nknown) date) unknown) (unknown) (no (unknown) (unknown) quit status: has (units (unknown) date) quit before unknown) (unknown) (no (unknown) (unknown) related to obesity (units (unknown) date) hypoventilation unknown) syndrome, chronic hypoxic respiratory failure (unknown) (no (unknown) (unknown) secondary to (units (u nknown) date) NSAID use -patient unknown) did not tolerate endoscopy, if hemoglobin and (unknown) (no (unknown) (unknown) today; this time (units (unknown) date) is exclusive of unknown) procedural time. Result panel 71 (unknown) (no date) (unknown) (unknown) 0 /ul (unkn own) (unknown) (no date) (unknown) (unknown) 0.3 % (unkn own) (unknown) (no date) (unknown) (unknown) 0.8 % (unkn own) (unknown) (no date) (unknown) (unknown) 10.2 x10 3/ul (unkn own) (unknown) (no date) (unknown) (unknown) 100 /ul (unkn own) (unknown) (no date) (unknown) (unknown) 1000 /ul (unkn own) (unknown) (no date) (unknown) (unknown) 12.8 % (unkn own) (unknown) (no date) (unknown) (unknown) 1300 /ul (unkn own) (unknown) (no date) (unknown) (unknown) 20.8 % (unkn own) (unknown) (no date) (unknown) (unknown) 234 x10 3/ul (unkn own) (unknown) (no date) (unknown) (unknown) 24.9 % (unkn own) (unknown) (no date) (unknown) (unknown) 27.4 pg (unkn own) (unknown) (no date) (unknown) (unknown) 3.00 x10 6/ul (unkn own) (unknown) (no date) (unknown) (unknown) 33.0 % (unkn own) (unknown) (no date) (unknown) (unknown) 76.7 % (unkn own) (unknown) (no date) (unknown) (unknown) 7800 /ul (unkn own) (unknown) (no date) (unknown) (unknown) 8.2 g/dl (unkn own) (unknown) (no date) (unknown) (unknown) 82.8 fl (unkn own) (unknown) (no date) (unknown) (unknown) 9.4 % (unkn own) Result panel 72 (unknown) (no date) (unknown) (unknown) > 60 ml/min (unkn own) (unknown) (no date) (unknown) (unknown) > 60 ml/min (unkn own) (unknown) (no date) (unknown) (unknown) 0.59 mg/dl (unkn own) (unknown) (no date) (unknown) (unknown) 1.9 mg/dl (unkn own) (unknown) (no date) (unknown) (unknown) 118 mg/dl (unkn own) (unknown) (no date) (unknown) (unknown) 118 mg/dl (unkn own) (unknown) (no date) (unknown) (unknown) 138 mmol/l (unkn own) (unknown) (no date) (unknown) (unknown) 15.3 (units unknown) (unknown) (unknown) (no date) (unknown) (unknown) 3.8 mmol/l (unkn own) (unknown) (no date) (unknown) (unknown) 37 mmol/l (unkn own) (unknown) (no date) (unknown) (unknown) 8.5 mg/dl (unkn own) (unknown) (no date) (unknown) (unknown) 9 mg/dl (unkn own) (unknown) (no date) (unknown) (unknown) 97 mmol/l (unkn own) Result panel 73 (unknown) (no date) (unknown) (unknown) 0 /ul (unkn own) (unknown) (no date) (unknown) (unknown) 0.3 % (unkn own) (unknown) (no date) (unknown) (unknown) 0.8 % (unkn own) (unknown) (no date) (unknown) (unknown) 1 (units (unkn own) unknown) (unknown) (no date) (unknown) (unknown) 10.2 x10 3/ul (unkn own) (unknown) (no date) (unknown) (unknown) 100 /ul (unkn own) (unknown) (no date) (unknown) (unknown) 1000 /ul (unkn own) (unknown) (no date) (unknown) (unknown) 12.8 % (unkn own) (unknown) (no date) (unknown) (unknown) 1300 /ul (unkn own) (unknown) (no date) (unknown) (unknown) 20.8 % (unkn own) (unknown) (no date) (unknown) (unknown) 234 x10 3/ul (unkn own) (unknown) (no date) (unknown) (unknown) 24.9 % (unkn own) (unknown) (no date) (unknown) (unknown) 27.4 pg (unkn own) (unknown) (no date) (unknown) (unknown) 3.00 x10 6/ul (unkn own) (unknown) (no date) (unknown) (unknown) 33.0 % (unkn own) (unknown) (no date) (unknown) (unknown) 76.7 % (unkn own) (unknown) (no date) (unknown) (unknown) 7800 /ul (unkn own) (unknown) (no date) (unknown) (unknown) 8.2 g/dl (unkn own) (unknown) (no date) (unknown) (unknown) 82.8 fl (unkn own) (unknown) (no date) (unknown) (unknown) 9.4 % (unkn own) (unknown) (no date) (unknown) (unknown) See Below (units (unk nown) unknown) Result panel 74 (unknown) (no (unknown) (unknown) (no value) (units (unk nown) date) unknown) (unknown) (no (unknown) (unknown) (past 8 hours): (units (unknown) date) unknown) (unknown) (no (unknown) (unknown) 04:54 04:54 (units (un known) date) unknown) (unknown) (no (unknown) (unknown) 01/24/22 04:54 (units (unknown) date) unknown) (unknown) (no (unknown) (unknown) 01/24/22 (units (unkno wn) date) 01/24/22 unknown) (unknown) (no (unknown) (unknown) 01/24/22 (units (unkno wn) date) unknown) (unknown) (no (unknown) (unknown) 10:54 01/24/22 (units (unknown) date) unknown) (unknown) (no (unknown) (unknown) 11:00 01/24/22 (units (unknown) date) unknown) (unknown) (no (unknown) (unknown) 11:31 01/24/22 (units (unknown) date) unknown) (unknown) (no (unknown) (unknown) 12:00 (units (unkno wn) date) unknown) (unknown) (no (unknown) (unknown) 13:00 (units (unkno wn) date) unknown) (unknown) (no (unknown) (unknown) 13:54 01/24/22 (units (unknown) date) unknown) (unknown) (no (unknown) (unknown) 15:00 01/24/22 (units (unknown) date) unknown) (unknown) (no (unknown) (unknown) 16:00 (units (unkno wn) date) unknown) (unknown) (no (unknown) (unknown) 16:45 01/24/22 (units (unknown) date) unknown) (unknown) (no (unknown) (unknown) 17:00 10/15/22 (units (unknown) date) unknown) (unknown) (no (unknown) (unknown) 17:00 (units (unkno wn) date) unknown) (unknown) (no (unknown) (unknown) [id number] (units (unkno wn) date) unknown) (unknown) (no (unknown) (unknown) Abdominal pain (units (unknown) date) unknown) (unknown) (no (unknown) (unknown) Age/Sex: 56 / F (units (unknown) date) unknown) (unknown) (no (unknown) (unknown) Allergic (units (unkno wn) date) dermatitis of unknown) eyelids of both eyes (unknown) (no (unknown) (unknown) Anemia (units (unkno wn) date) unknown) (unknown) (no (unknown) (unknown) Anisocytosis 1+ (units (unknown) date) H unknown) (unknown) (no (unknown) (unknown) Arthritis (units (unkn own) date) (Unknown) unknown) (unknown) (no (unknown) (unknown) Assessment + (units (u nknown) date) Plan unknown) (unknown) (no (unknown) (unknown) Asthma (Unknown) (units (unknown) date) unknown) (unknown) (no (unknown) (unknown) Asthma (units (unkno wn) date) unknown) (unknown) (no (unknown) (unknown) BUN 9 (units (unkno wn) date) unknown) (unknown) (no (unknown) (unknown) BUN/Creatinine (units (unknown) date) Ratio 15.3 unknown) (unknown) (no (unknown) (unknown) Baso # (Auto) 0 (units (unknown) date) unknown) (unknown) (no (unknown) (unknown) Baso % (Auto) (units ( unknown) date) 0.3 unknown) (unknown) (no (unknown) (unknown) Blood Pressure (units (unknown) date) 117/55 L unknown) (unknown) (no (unknown) (unknown) Blood Pressure (units (unknown) date) 89/55 L unknown) (unknown) (no (unknown) (unknown) Blood Pressure (units (unknown) date) 97/56 L 111/56 L unknown) (unknown) (no (unknown) (unknown) Blood Pressure (units (unknown) date) unknown) (unknown) (no (unknown) (unknown) COPD (chronic (units ( unknown) date) obstructive unknown) pulmonary disease) (unknown) (no (unknown) (unknown) Calcium 8.5 (units (un known) date) unknown) (unknown) (no (unknown) (unknown) Carbon Dioxide (units (unknown) date) 37 H unknown) (unknown) (no (unknown) (unknown) Carpal tunnel (units ( unknown) date) syndrome (-2017) unknown) (unknown) (no (unknown) (unknown) Chloride 97 L (units ( unknown) date) unknown) (unknown) (no (unknown) (unknown) Chronic atrial (units (unknown) date) fibrillation unknown) (unknown) (no (unknown) (unknown) Cor pulmonale (units ( unknown) date) (chronic) unknown) (unknown) (no (unknown) (unknown) Creatinine 0.59 (units (unknown) date) unknown) (unknown) (no (unknown) (unknown) Critical Care (units ( unknown) date) time: unknown) (unknown) (no (unknown) (unknown) : 1965 (units (unknown) date) Acct:[id number] unknown) (unknown) (no (unknown) (unknown) Date Patient (units (u nknown) date) Seen: 01/24/22 unknown) (unknown) (no (unknown) (unknown) Date of Service: (units (unknown) date) 01/21/22 unknown) (unknown) (no (unknown) (unknown) Eczema (units (unkno wn) date) unknown) (unknown) (no (unknown) (unknown) Eos # (Auto) 100 (units (unknown) date) unknown) (unknown) (no (unknown) (unknown) Eos % (Auto) 0.8 (units (unknown) date) L unknown) (unknown) (no (unknown) (unknown) Estimated GFR > (units (unknown) date) 60 unknown) (unknown) (no (unknown) (unknown) Exam Narrative: (units (unknown) date) unknown) (unknown) (no (unknown) (unknown) Exam (units (unkno wn) date) unknown) (unknown) (no (unknown) (unknown) Family History (units (unknown) date) (Reviewed unknown) 01/23/22 @ 10:31 by Anne-Marie Clancy MD) (unknown) (no (unknown) (unknown) Fraction of (units (un known) date) Inspired Oxygen unknown) 40 (unknown) (no (unknown) (unknown) Glucose 118 H (units ( unknown) date) unknown) (unknown) (no (unknown) (unknown) Hct 24.9 L (units (unk nown) date) unknown) (unknown) (no (unknown) (unknown) Hgb 8.2 L (units (unkn own) date) unknown) (unknown) (no (unknown) (unknown) History of (units (unk nown) date) hysterectomy for unknown) cancer (unknown) (no (unknown) (unknown) I spent a total (units (unknown) date) of [] minutes of unknown) critical care time on this patient's care (unknown) (no (unknown) (unknown) Impetigo (units (unkno wn) date) unknown) (unknown) (no (unknown) (unknown) Incontinence (units (u nknown) date) unknown) (unknown) (no (unknown) (unknown) Interval (units (unkno wn) date) history: unknown) (unknown) (no (unknown) (unknown) [facility] (units (unknown) date) [address] unknown) [place] [address] (unknown) (no (unknown) (unknown) Laboratory (units (unk nown) date) Results - last 24 unknown) hr (unknown) (no (unknown) (unknown) Labs (units (unkno wn) date) unknown) (unknown) (no (unknown) (unknown) Labs: (units (unkno wn) date) unknown) (unknown) (no (unknown) (unknown) Lymph # (Auto) (units (unknown) date) 1300 unknown) (unknown) (no (unknown) (unknown) Lymph % (Auto) (units (unknown) date) 12.8 L unknown) (unknown) (no (unknown) (unknown) MCH 27.4 (units (unkno wn) date) unknown) (unknown) (no (unknown) (unknown) MCHC 33.0 (units (unkn own) date) unknown) (unknown) (no (unknown) (unknown) MCV 82.8 (units (unkno wn) date) unknown) (unknown) (no (unknown) (unknown) Magnesium 1.9 (units ( unknown) date) unknown) (unknown) (no (unknown) (unknown) Medical History (units (unknown) date) (Reviewed unknown) 01/23/22 @ 10:31 by Anne-Marie Clancy MD) (unknown) (no (unknown) (unknown) Lyon # (Auto) (units ( unknown) date) 1000 H unknown) (unknown) (no (unknown) (unknown) Lyon % (Auto) (units ( unknown) date) 9.4 unknown) (unknown) (no (unknown) (unknown) Morbid obesity (units (unknown) date) due to excess unknown) calories (unknown) (no (unknown) (unknown) Morbidly obese (units (unknown) date) female sitting up unknown) in the bed, able to make a reasonable (unknown) (no (unknown) (unknown) Mother (units (unknown) date) CVA (cerebral unknown) vascular accident) (unknown) (no (unknown) (unknown) Narrative (units (unkn own) date) unknown) (unknown) (no (unknown) (unknown) Neut # (Auto) (units ( unknown) date) 7800 H unknown) (unknown) (no (unknown) (unknown) Neut % (Auto) (units ( unknown) date) 76.7 H unknown) (unknown) (no (unknown) (unknown) Objective (units (unkn own) date) unknown) (unknown) (no (unknown) (unknown) Oxygen Delivery (units (unknown) date) Method Room Air unknown) (unknown) (no (unknown) (unknown) Oxygen Delivery (units (unknown) date) Method unknown) (unknown) (no (unknown) (unknown) Oxygen Flow Rate (units (unknown) date) 0 unknown) (unknown) (no (unknown) (unknown) Oxygen Flow Rate (units (unknown) date) unknown) (unknown) (no (unknown) (unknown) PFSH (units (unkno wn) date) unknown) (unknown) (no (unknown) (unknown) Patient feels (units ( unknown) date) little better. unknown) Still had significant episodes of tachycardia this (unknown) (no (unknown) (unknown) Patient: (units (unkno wn) date) Rosalba Pabon M unknown) MR#: [id number] (unknown) (no (unknown) (unknown) Plt Count 234 (units ( unknown) date) unknown) (unknown) (no (unknown) (unknown) Polychromasia 1+ (units (unknown) date) H unknown) (unknown) (no (unknown) (unknown) Potassium 3.8 (units ( unknown) date) unknown) (unknown) (no (unknown) (unknown) Progress Note (units ( unknown) date) unknown) (unknown) (no (unknown) (unknown) Provider: (units (unkn own) date) Rajiv Simon unknown) juliet STEVENSON (unknown) (no (unknown) (unknown) Pulmonary (units (unkn own) date) hypertension unknown) (unknown) (no (unknown) (unknown) Pulse Oximetry (units (unknown) date) 93 92 unknown) (unknown) (no (unknown) (unknown) Pulse Oximetry (units (unknown) date) 93 95 unknown) (unknown) (no (unknown) (unknown) Pulse Oximetry (units (unknown) date) 93 unknown) (unknown) (no (unknown) (unknown) Pulse Oximetry (units (unknown) date) unknown) (unknown) (no (unknown) (unknown) Pulse Rate 103 H (units (unknown) date) unknown) (unknown) (no (unknown) (unknown) Pulse Rate 121 H (units (unknown) date) 116 H unknown) (unknown) (no (unknown) (unknown) Pulse Rate 122 H (units (unknown) date) 109 H unknown) (unknown) (no (unknown) (unknown) Pulse Rate 145 H (units (unknown) date) 118 H unknown) (unknown) (no (unknown) (unknown) RBC 3.00 L (units (unk nown) date) unknown) (unknown) (no (unknown) (unknown) RBC Morphology (units (unknown) date) See below unknown) (unknown) (no (unknown) (unknown) RDW 20.8 H (units (unk nown) date) unknown) (unknown) (no (unknown) (unknown) Respiratory Rate (units (unknown) date) 20 unknown) (unknown) (no (unknown) (unknown) Respiratory Rate (units (unknown) date) 23 unknown) (unknown) (no (unknown) (unknown) Respiratory Rate (units (unknown) date) unknown) (unknown) (no (unknown) (unknown) Restless leg (units (u nknown) date) syndrome unknown) (unknown) (no (unknown) (unknown) Result Diagrams: (units (unknown) date) unknown) (unknown) (no (unknown) (unknown) Right-sided low (units (unknown) date) back pain with unknown) sciatica (unknown) (no (unknown) (unknown) SaO2/FiO2 Ratio (units (unknown) date) 235 unknown) (unknown) (no (unknown) (unknown) Signed By: (units (unk nown) date) unknown) (unknown) (no (unknown) (unknown) Smoking Status: (units (unknown) date) Current every day unknown) smoker (unknown) (no (unknown) (unknown) Social History (units (unknown) date) (Reviewed unknown) 01/21/22 @ 15:14 by Lilian Armstrong DO) (unknown) (no (unknown) (unknown) Sodium 138 (units (unk nown) date) unknown) (unknown) (no (unknown) (unknown) Staph skin (units (unk nown) date) infection unknown) (unknown) (no (unknown) (unknown) Subjective (units (unk nown) date) unknown) (unknown) (no (unknown) (unknown) Surgical History (units (unknown) date) (Reviewed unknown) 01/23/22 @ 10:31 by Anne-Marie Clancy MD) (unknown) (no (unknown) (unknown) Tachycardia (units (un known) date) unknown) (unknown) (no (unknown) (unknown) Temperature 98.6 (units (unknown) date) F unknown) (unknown) (no (unknown) (unknown) Temperature 98.8 (units (unknown) date) F unknown) (unknown) (no (unknown) (unknown) Temperature (units (un known) date) unknown) (unknown) (no (unknown) (unknown) Time Spent With (units (unknown) date) Patient unknown) (unknown) (no (unknown) (unknown) Vital Signs (units (un known) date) unknown) (unknown) (no (unknown) (unknown) WBC 10.2 (units (unkno wn) date) unknown) (unknown) (no (unknown) (unknown) [Embedded Image (units (unknown) date) Not Available] unknown) (unknown) (no (unknown) (unknown) alcohol intake: (units (unknown) date) current unknown) (unknown) (no (unknown) (unknown) breath with (units (un known) date) minimal unknown) ambulation. But definitely improving compared to the time (unknown) (no (unknown) (unknown) cardiovascular, (units (unknown) date) GI, skin, neuro, unknown) psych exam done, negative. Other than as (unknown) (no (unknown) (unknown) conversation, (units ( unknown) date) following unknown) commands, on oxygen. Decreased air entry on both lung (unknown) (no (unknown) (unknown) explained (units (unkn own) date) yesterday. She unknown) wanted to go home but explained she is not stable or (unknown) (no (unknown) (unknown) kennedy in the (units ( unknown) date) posterior lung unknown) kennedy, basal crackles also noted. No abdominal (unknown) (no (unknown) (unknown) household (units (unkn own) date) members: unknown) friend(s) (unknown) (no (unknown) (unknown) mentioned above. (units (unknown) date) unknown) (unknown) (no (unknown) (unknown) morning but (units (un known) date) improved after unknown) giving metoprolol. Patient still gets short of (unknown) (no (unknown) (unknown) of admission. No (units (unknown) date) active signs of unknown) bleeding. Did not tolerate the procedure as (unknown) (no (unknown) (unknown) patient denies (units (unknown) date) any specific unknown) complaints at this time. No fevers no chills (unknown) (no (unknown) (unknown) quit status: has (units (unknown) date) quit before unknown) (unknown) (no (unknown) (unknown) safe at the time (units (unknown) date) of the day. Other unknown) than shortness of breath and feeling tired (unknown) (no (unknown) (unknown) tenderness on (units ( unknown) date) palpation. Pedal unknown) edema positive. Constitutional, HEENT, (unknown) (no (unknown) (unknown) today; this time (units (unknown) date) is exclusive of unknown) procedural time. Result panel 75 (unknown) (no (unknown) (unknown) (no value) (units (unk nown) date) unknown) (unknown) (no (unknown) (unknown) (past 8 hours): (units (unknown) date) unknown) (unknown) (no (unknown) (unknown) 04:54 04:54 (units (un known) date) unknown) (unknown) (no (unknown) (unknown) 01/24/22 04:54 (units (unknown) date) unknown) (unknown) (no (unknown) (unknown) 01/24/22 01/24/22 (units (unknown) date) unknown) (unknown) (no (unknown) (unknown) 01/24/22 1840 (units ( unknown) date) unknown) (unknown) (no (unknown) (unknown) 01/24/22 (units (unkno wn) date) unknown) (unknown) (no (unknown) (unknown) 10:54 01/24/22 (units (unknown) date) unknown) (unknown) (no (unknown) (unknown) 11:00 01/24/22 (units (unknown) date) unknown) (unknown) (no (unknown) (unknown) 11:31 01/24/22 (units (unknown) date) unknown) (unknown) (no (unknown) (unknown) 12:00 (units (unkno wn) date) unknown) (unknown) (no (unknown) (unknown) 13:00 (units (unkno wn) date) unknown) (unknown) (no (unknown) (unknown) 13:54 01/24/22 (units (unknown) date) unknown) (unknown) (no (unknown) (unknown) 15:00 01/24/22 (units (unknown) date) unknown) (unknown) (no (unknown) (unknown) 16:00 (units (unkno wn) date) unknown) (unknown) (no (unknown) (unknown) 16:45 01/24/22 (units (unknown) date) unknown) (unknown) (no (unknown) (unknown) 17:00 01/24/22 (units (unknown) date) unknown) (unknown) (no (unknown) (unknown) 17:00 (units (unkno wn) date) unknown) (unknown) (no (unknown) (unknown) [address]1154 (units (unkno wn) date) unknown) (unknown) (no (unknown) (unknown) Abdominal pain (units (unknown) date) unknown) (unknown) (no (unknown) (unknown) Acute respiratory (units (unknown) date) failure with unknown) Hypoxia most likely secondary to COPD (unknown) (no (unknown) (unknown) Acute symptomatic (units (unknown) date) blood loss anemia unknown) most likely related to upper GI bleed (unknown) (no (unknown) (unknown) Age/Sex: 56 / F (units (unknown) date) unknown) (unknown) (no (unknown) (unknown) Allergic (units (unkno wn) date) dermatitis of unknown) eyelids of both eyes (unknown) (no (unknown) (unknown) Anemia (units (unkno wn) date) unknown) (unknown) (no (unknown) (unknown) Anisocytosis 1+ H (units (unknown) date) unknown) (unknown) (no (unknown) (unknown) Arthritis (units (unkn own) date) (Unknown) unknown) (unknown) (no (unknown) (unknown) Assessment + Plan (units (unknown) date) narrative: unknown) (unknown) (no (unknown) (unknown) Assessment + Plan (units (unknown) date) unknown) (unknown) (no (unknown) (unknown) Asthma (Unknown) (units (unknown) date) unknown) (unknown) (no (unknown) (unknown) Asthma (units (unkno wn) date) unknown) (unknown) (no (unknown) (unknown) BUN 9 (units (unkno wn) date) unknown) (unknown) (no (unknown) (unknown) BUN/Creatinine (units (unknown) date) Ratio 15.3 unknown) (unknown) (no (unknown) (unknown) Baso # (Auto) 0 (units (unknown) date) unknown) (unknown) (no (unknown) (unknown) Baso % (Auto) 0.3 (units (unknown) date) unknown) (unknown) (no (unknown) (unknown) Blood Pressure (units (unknown) date) 117/55 L unknown) (unknown) (no (unknown) (unknown) Blood Pressure (units (unknown) date) 89/55 L unknown) (unknown) (no (unknown) (unknown) Blood Pressure (units (unknown) date) 97/56 L 111/56 L unknown) (unknown) (no (unknown) (unknown) Blood Pressure (units (unknown) date) unknown) (unknown) (no (unknown) (unknown) COPD (chronic (units ( unknown) date) obstructive unknown) pulmonary disease) (unknown) (no (unknown) (unknown) Calcium 8.5 (units (un known) date) unknown) (unknown) (no (unknown) (unknown) Carbon Dioxide 37 (units (unknown) date) H unknown) (unknown) (no (unknown) (unknown) Carpal tunnel (units ( unknown) date) syndrome (-2017) unknown) (unknown) (no (unknown) (unknown) Chloride 97 L (units ( unknown) date) unknown) (unknown) (no (unknown) (unknown) Chronic atrial (units (unknown) date) fibrillation on unknown) anticoagulation ?- hold home anticoagulation in (unknown) (no (unknown) (unknown) Chronic atrial (units (unknown) date) fibrillation unknown) (unknown) (no (unknown) (unknown) Chronic hypoxic (units (unknown) date) respiratory unknown) failure with underlying pulmonary hypertension and (unknown) (no (unknown) (unknown) Continued (units (unkn own) date) titration of unknown) medication for safe discharge planning (unknown) (no (unknown) (unknown) Cor pulmonale (units ( unknown) date) (chronic) unknown) (unknown) (no (unknown) (unknown) Creatinine 0.59 (units (unknown) date) unknown) (unknown) (no (unknown) (unknown) Critical Care (units ( unknown) date) time: unknown) (unknown) (no (unknown) (unknown) : 1965 (units (unknown) date) Acct:[id number] unknown) (unknown) (no (unknown) (unknown) Date Patient (units (u nknown) date) Seen: 01/24/22 unknown) (unknown) (no (unknown) (unknown) Date of Service: (units (unknown) date) 01/21/22 unknown) (unknown) (no (unknown) (unknown) Eczema (units (unkno wn) date) unknown) (unknown) (no (unknown) (unknown) Eos # (Auto) 100 (units (unknown) date) unknown) (unknown) (no (unknown) (unknown) Eos % (Auto) 0.8 (units (unknown) date) L unknown) (unknown) (no (unknown) (unknown) Estimated GFR > (units (unknown) date) 60 unknown) (unknown) (no (unknown) (unknown) Exam Narrative: (units (unknown) date) unknown) (unknown) (no (unknown) (unknown) Exam (units (unkno wn) date) unknown) (unknown) (no (unknown) (unknown) Family History (units (unknown) date) (Reviewed 01/23/22 unknown) @ 10:31 by Anne-Marie Clancy MD) (unknown) (no (unknown) (unknown) Fraction of (units (un known) date) Inspired Oxygen 40 unknown) (unknown) (no (unknown) (unknown) Glucose 118 H (units ( unknown) date) unknown) (unknown) (no (unknown) (unknown) Hct 24.9 L (units (unk nown) date) unknown) (unknown) (no (unknown) (unknown) Hgb 8.2 L (units (unkn own) date) unknown) (unknown) (no (unknown) (unknown) History of (units (unk nown) date) hysterectomy for unknown) cancer (unknown) (no (unknown) (unknown) Hold (units (unkno wn) date) anticoagulation unknown) given active bleeding, SCDs for DVT prophylaxis, Protonix (unknown) (no (unknown) (unknown) Hypokalemia - (units ( unknown) date) improving unknown) (unknown) (no (unknown) (unknown) I spent a total (units (unknown) date) of [] minutes of unknown) critical care time on this patient's care (unknown) (no (unknown) (unknown) IV for GI (units (unkn own) date) prophylaxis unknown) (unknown) (no (unknown) (unknown) Impetigo (units (unkno wn) date) unknown) (unknown) (no (unknown) (unknown) Incontinence (units (u nknown) date) unknown) (unknown) (no (unknown) (unknown) Interval history: (units (unknown) date) unknown) (unknown) (no (unknown) (unknown) [facility] (units (unknown) date) [address] unknown) [place] [address] (unknown) (no (unknown) (unknown) Laboratory (units (unk nown) date) Results - last 24 unknown) hr (unknown) (no (unknown) (unknown) Labs (units (unkno wn) date) unknown) (unknown) (no (unknown) (unknown) Labs: (units (unkno wn) date) unknown) (unknown) (no (unknown) (unknown) Lymph # (Auto) (units (unknown) date) 1300 unknown) (unknown) (no (unknown) (unknown) Lymph % (Auto) (units (unknown) date) 12.8 L unknown) (unknown) (no (unknown) (unknown) MCH 27.4 (units (unkno wn) date) unknown) (unknown) (no (unknown) (unknown) MCHC 33.0 (units (unkn own) date) unknown) (unknown) (no (unknown) (unknown) MCV 82.8 (units (unkno wn) date) unknown) (unknown) (no (unknown) (unknown) Magnesium 1.9 (units ( unknown) date) unknown) (unknown) (no (unknown) (unknown) Medical History (units (unknown) date) (Reviewed 01/23/22 unknown) @ 10:31 by Anne-Marie Clancy MD) (unknown) (no (unknown) (unknown) Lyon # (Auto) (units ( unknown) date) 1000 H unknown) (unknown) (no (unknown) (unknown) Lyon % (Auto) 9.4 (units (unknown) date) unknown) (unknown) (no (unknown) (unknown) Morbid obesity (units (unknown) date) due to excess unknown) calories (unknown) (no (unknown) (unknown) Morbidly obese (units (unknown) date) female sitting up unknown) in the bed, able to make a reasonable (unknown) (no (unknown) (unknown) Mother (units (unknown) date) CVA (cerebral unknown) vascular accident) (unknown) (no (unknown) (unknown) Narrative (units (unkn own) date) unknown) (unknown) (no (unknown) (unknown) Neut # (Auto) (units ( unknown) date) 7800 H unknown) (unknown) (no (unknown) (unknown) Neut % (Auto) (units ( unknown) date) 76.7 H unknown) (unknown) (no (unknown) (unknown) Objective (units (unkn own) date) unknown) (unknown) (no (unknown) (unknown) Oxygen Delivery (units (unknown) date) Method Room Air unknown) (unknown) (no (unknown) (unknown) Oxygen Delivery (units (unknown) date) Method unknown) (unknown) (no (unknown) (unknown) Oxygen Flow Rate (units (unknown) date) 0 unknown) (unknown) (no (unknown) (unknown) Oxygen Flow Rate (units (unknown) date) unknown) (unknown) (no (unknown) (unknown) PFSH (units (unkno wn) date) unknown) (unknown) (no (unknown) (unknown) Patient feels (units ( unknown) date) little better. unknown) Still had significant episodes of tachycardia this (unknown) (no (unknown) (unknown) Patient is full (units (unknown) date) code unknown) (unknown) (no (unknown) (unknown) Patient is (units (unk nown) date) high-risk for unknown) readmission and still continues to be short of breath (unknown) (no (unknown) (unknown) Patient: (units (unkno wn) date) Rosalba Pabon MR#: unknown) [id number] (unknown) (no (unknown) (unknown) Plt Count 234 (units ( unknown) date) unknown) (unknown) (no (unknown) (unknown) Polychromasia 1+ (units (unknown) date) H unknown) (unknown) (no (unknown) (unknown) Potassium 3.8 (units ( unknown) date) unknown) (unknown) (no (unknown) (unknown) Progress Note (units ( unknown) date) unknown) (unknown) (no (unknown) (unknown) Provider: (units (unkn own) date) Kurt Simon unknown) avila STEVENSON (unknown) (no (unknown) (unknown) Pulmonary (units (unkn own) date) hypertension unknown) (unknown) (no (unknown) (unknown) Pulse Oximetry 93 (units (unknown) date) 92 unknown) (unknown) (no (unknown) (unknown) Pulse Oximetry 93 (units (unknown) date) 95 unknown) (unknown) (no (unknown) (unknown) Pulse Oximetry 93 (units (unknown) date) unknown) (unknown) (no (unknown) (unknown) Pulse Oximetry (units (unknown) date) unknown) (unknown) (no (unknown) (unknown) Pulse Rate 103 H (units (unknown) date) unknown) (unknown) (no (unknown) (unknown) Pulse Rate 121 H (units (unknown) date) 116 H unknown) (unknown) (no (unknown) (unknown) Pulse Rate 122 H (units (unknown) date) 109 H unknown) (unknown) (no (unknown) (unknown) Pulse Rate 145 H (units (unknown) date) 118 H unknown) (unknown) (no (unknown) (unknown) RBC 3.00 L (units (unk nown) date) unknown) (unknown) (no (unknown) (unknown) RBC Morphology (units (unknown) date) See below unknown) (unknown) (no (unknown) (unknown) RDW 20.8 H (units (unk nown) date) unknown) (unknown) (no (unknown) (unknown) Repeat CBC CMP (units (unknown) date) tomorrow to follow unknown) up on the labs and potential discharge (unknown) (no (unknown) (unknown) Respiratory Rate (units (unknown) date) 20 unknown) (unknown) (no (unknown) (unknown) Respiratory Rate (units (unknown) date) 23 unknown) (unknown) (no (unknown) (unknown) Respiratory Rate (units (unknown) date) unknown) (unknown) (no (unknown) (unknown) Restless leg (units (u nknown) date) syndrome unknown) (unknown) (no (unknown) (unknown) Result Diagrams: (units (unknown) date) unknown) (unknown) (no (unknown) (unknown) Right-sided low (units (unknown) date) back pain with unknown) sciatica (unknown) (no (unknown) (unknown) SaO2/FiO2 Ratio (units (unknown) date) 235 unknown) (unknown) (no (unknown) (unknown) Signed (units (unkno wn) date) By:<Electronically unknown) signed by Benito Simon MD> (unknown) (no (unknown) (unknown) Smoking Status: (units (unknown) date) Current every day unknown) smoker (unknown) (no (unknown) (unknown) Social History (units (unknown) date) (Reviewed 01/21/22 unknown) @ 15:14 by Lilian Armstrong DO) (unknown) (no (unknown) (unknown) Sodium 138 (units (unk nown) date) unknown) (unknown) (no (unknown) (unknown) Staph skin (units (unk nown) date) infection unknown) (unknown) (no (unknown) (unknown) Subjective (units (unk nown) date) unknown) (unknown) (no (unknown) (unknown) Surgical History (units (unknown) date) (Reviewed 01/23/22 unknown) @ 10:31 by Anne-Marie Clancy MD) (unknown) (no (unknown) (unknown) Tachycardia (units (un known) date) unknown) (unknown) (no (unknown) (unknown) Temperature 98.6 (units (unknown) date) F unknown) (unknown) (no (unknown) (unknown) Temperature 98.8 (units (unknown) date) F unknown) (unknown) (no (unknown) (unknown) Temperature (units (un known) date) unknown) (unknown) (no (unknown) (unknown) Time Spent With (units (unknown) date) Patient unknown) (unknown) (no (unknown) (unknown) Vital Signs (units (un known) date) unknown) (unknown) (no (unknown) (unknown) WBC 10.2 (units (unkno wn) date) unknown) (unknown) (no (unknown) (unknown) We will further (units (unknown) date) evaluate for unknown) possibility of home O2 requirement with a walking (unknown) (no (unknown) (unknown) [Embedded Image (units (unknown) date) Not Available] unknown) (unknown) (no (unknown) (unknown) alcohol intake: (units (unknown) date) current unknown) (unknown) (no (unknown) (unknown) breath with (units (un known) date) minimal unknown) ambulation. But definitely improving compared to the time (unknown) (no (unknown) (unknown) cardiovascular, (units (unknown) date) GI, skin, neuro, unknown) psych exam done, negative. Other than as (unknown) (no (unknown) (unknown) conversation, (units ( unknown) date) following unknown) commands, on oxygen. Decreased air entry on both lung (unknown) (no (unknown) (unknown) exacerbation (units (u nknown) date) unknown) (unknown) (no (unknown) (unknown) explained (units (unkn own) date) yesterday. She unknown) wanted to go home but explained she is not stable or (unknown) (no (unknown) (unknown) kennedy in the (units ( unknown) date) posterior lung unknown) kennedy, basal crackles also noted. No abdominal (unknown) (no (unknown) (unknown) household (units (unkn own) date) members: friend(s) unknown) (unknown) (no (unknown) (unknown) mentioned above. (units (unknown) date) unknown) (unknown) (no (unknown) (unknown) morning but (units (un known) date) improved after unknown) giving metoprolol. Patient still gets short of (unknown) (no (unknown) (unknown) obesity (units (unkno wn) date) hypoventilatory unknown) syndrome (unknown) (no (unknown) (unknown) of admission. No (units (unknown) date) active signs of unknown) bleeding. Did not tolerate the procedure as (unknown) (no (unknown) (unknown) patient denies (units (unknown) date) any specific unknown) complaints at this time. No fevers no chills (unknown) (no (unknown) (unknown) pulse ox tomorrow (units (unknown) date) unknown) (unknown) (no (unknown) (unknown) quit status: has (units (unknown) date) quit before unknown) (unknown) (no (unknown) (unknown) safe at the time (units (unknown) date) of the day. Other unknown) than shortness of breath and feeling tired (unknown) (no (unknown) (unknown) secondary to (units (u nknown) date) NSAID use -patient unknown) did not tolerate endoscopy (unknown) (no (unknown) (unknown) setting of (units (unk nown) date) bleeding. unknown) (unknown) (no (unknown) (unknown) tenderness on (units ( unknown) date) palpation. Pedal unknown) edema positive. Constitutional, HEENT, (unknown) (no (unknown) (unknown) today; this time (units (unknown) date) is exclusive of unknown) procedural time. (unknown) (no (unknown) (unknown) with minimal (units (u nknown) date) exertion unknown) Result panel 76 (unknown) (no date) (unknown) (unknown) 11.0 mmol/l (unkn own) (unknown) (no date) (unknown) (unknown) 21 (units unknown) (unknown) (unknown) (no date) (unknown) (unknown) 34 mmol/l (unkn own) (unknown) (no date) (unknown) (unknown) 35 mmol/l (unkn own) (unknown) (no date) (unknown) (unknown) 44.3 mmhg (unkn own) (unknown) (no date) (unknown) (unknown) 58 mmhg (unkn own) (unknown) (no date) (unknown) (unknown) 7.49 (units unknown) (unknown) (unknown) (no date) (unknown) (unknown) 7.49 (units unknown) (unknown) (unknown) (no date) (unknown) (unknown) 92 % (unkn own) Result panel 77 (unknown) (no (unknown) (unknown) (no value) (units (unk nown) date) unknown) (unknown) (no (unknown) (unknown) (past 8 hours): (units (unknown) date) unknown) (unknown) (no (unknown) (unknown) 0.25 mg PO (units (unk nown) date) BEDTIME Qty: 90 unknown) 1RF (unknown) (no (unknown) (unknown) 05:00 01/25/22 (units (unknown) date) unknown) (unknown) (no (unknown) (unknown) 08:00 01/25/22 (units (unknown) date) unknown) (unknown) (no (unknown) (unknown) 09:00 01/25/22 (units (unknown) date) unknown) (unknown) (no (unknown) (unknown) 09:00 (units (unkno wn) date) unknown) (unknown) (no (unknown) (unknown) 1 applic topical (units (unknown) date) BEDTIME Qty: 25 unknown) 0RF (unknown) (no (unknown) (unknown) 1 cap inhalation (units (unknown) date) DAILY Qty: 90 1RF unknown) (unknown) (no (unknown) (unknown) 1 puff INHALATION (units (unknown) date) Q6H PRN (Reason: unknown) shortness of breath or wheezing) Qty: 18 (unknown) (no (unknown) (unknown) 01/21/22 16:06 (units (unknown) date) unknown) (unknown) (no (unknown) (unknown) 01/21/22 16:17 (units (unknown) date) unknown) (unknown) (no (unknown) (unknown) 01/24/22 04:54 (units (unknown) date) unknown) (unknown) (no (unknown) (unknown) 01/24/22 14:42 (units (unknown) date) unknown) (unknown) (no (unknown) (unknown) 01/24/22 (units (unkno wn) date) unknown) (unknown) (no (unknown) (unknown) 01/25/22 (units (unkno wn) date) unknown) (unknown) (no (unknown) (unknown) 10:15 01/25/22 (units (unknown) date) unknown) (unknown) (no (unknown) (unknown) 11:30 (units (unkno wn) date) unknown) (unknown) (no (unknown) (unknown) 11:31 (units (unkno wn) date) unknown) (unknown) (no (unknown) (unknown) 19:05 (units (unkno wn) date) unknown) (unknown) (no (unknown) (unknown) 2 mg PO BEDTIME (units (unknown) date) Qty: 90 1RF unknown) (unknown) (no (unknown) (unknown) 2 puff inhalation (units (unknown) date) Q8H Qty: 12.9 2RF unknown) (unknown) (no (unknown) (unknown) 20 mg PO DAILY (units (unknown) date) unknown) (unknown) (no (unknown) (unknown) 25 mg PO DAILY (units (unknown) date) unknown) (unknown) (no (unknown) (unknown) 250 mcg PO DAILY (units (unknown) date) Qty: 7 0RF unknown) (unknown) (no (unknown) (unknown) 5 mg PO BID (units (un known) date) unknown) (unknown) (no (unknown) (unknown) 50 mg PO BID Qty: (units (unknown) date) 180 1RF unknown) (unknown) (no (unknown) (unknown) 50 mg PO TID 30 (units (unknown) date) Days Qty: 90 0RF unknown) (unknown) (no (unknown) (unknown) [id number] (units (unkno wn) date) unknown) (unknown) (no (unknown) (unknown) 5RF (units (unkno wn) date) unknown) (unknown) (no (unknown) (unknown) ABG Base Excess (units (unknown) date) 11.0 H unknown) (unknown) (no (unknown) (unknown) ABG HCO3 34 H (units ( unknown) date) unknown) (unknown) (no (unknown) (unknown) ABG O2 Saturation (units (unknown) date) 92 L unknown) (unknown) (no (unknown) (unknown) ABG Total CO2 35 (units (unknown) date) H unknown) (unknown) (no (unknown) (unknown) ABG pCO2 44.3 (units ( unknown) date) unknown) (unknown) (no (unknown) (unknown) ABG pH 7.49 H (units ( unknown) date) unknown) (unknown) (no (unknown) (unknown) ABG pO2 58 L (units (u nknown) date) unknown) (unknown) (no (unknown) (unknown) Abdominal pain (units (unknown) date) unknown) (unknown) (no (unknown) (unknown) Age/Sex: 56 / F (units (unknown) date) unknown) (unknown) (no (unknown) (unknown) Allergic (units (unkno wn) date) dermatitis of unknown) eyelids of both eyes (unknown) (no (unknown) (unknown) Anemia (units (unkno wn) date) unknown) (unknown) (no (unknown) (unknown) Apply twice week (units (unknown) date) unknown) (unknown) (no (unknown) (unknown) Arthritis (units (unkn own) date) (Unknown) unknown) (unknown) (no (unknown) (unknown) Asthma (Unknown) (units (unknown) date) unknown) (unknown) (no (unknown) (unknown) Asthma (units (unkno wn) date) unknown) (unknown) (no (unknown) (unknown) Atrovent HFA 17 (units (unknown) date) mcg/actuation HFA unknown) aerosol inhaler (unknown) (no (unknown) (unknown) Blood Pressure (units (unknown) date) 110/71 unknown) (unknown) (no (unknown) (unknown) Blood Pressure (units (unknown) date) 99/73 unknown) (unknown) (no (unknown) (unknown) COPD (chronic (units ( unknown) date) obstructive unknown) pulmonary disease) (unknown) (no (unknown) (unknown) Carpal tunnel (units ( unknown) date) syndrome (-2017) unknown) (unknown) (no (unknown) (unknown) Chief complaint: (units (unknown) date) Coffee ground unknown) emesis, CHF, +thinners (unknown) (no (unknown) (unknown) Chronic atrial (units (unknown) date) fibrillation unknown) (unknown) (no (unknown) (unknown) Comment: (units (unkno wn) date) unknown) (unknown) (no (unknown) (unknown) Consult to (units (unk nown) date) General Surgery unknown) Stat (unknown) (no (unknown) (unknown) Consult to (units (unk nown) date) Physical Therapy unknown) Evaluate + Treat (unknown) (no (unknown) (unknown) Consulting (units (unk nown) date) Provider: unknown) Anne-Marie Clancy (unknown) (no (unknown) (unknown) Consults: (units (unkn own) date) unknown) (unknown) (no (unknown) (unknown) Continued (units (unkn own) date) unknown) (unknown) (no (unknown) (unknown) Cor pulmonale (units ( unknown) date) (chronic) unknown) (unknown) (no (unknown) (unknown) : 1965 (units (unknown) date) Acct:[id number] unknown) (unknown) (no (unknown) (unknown) Date Patient (units (u nknown) date) Seen: 01/25/22 unknown) (unknown) (no (unknown) (unknown) Date of Service: (units (unknown) date) 01/21/22 unknown) (unknown) (no (unknown) (unknown) Date of (units (unkno wn) date) admission: unknown) (unknown) (no (unknown) (unknown) Discharge Data (units (unknown) date) unknown) (unknown) (no (unknown) (unknown) Discharge Plan (units (unknown) date) unknown) (unknown) (no (unknown) (unknown) Discharge (units (unkn own) date) Providers unknown) (unknown) (no (unknown) (unknown) Discharge Summary (units (unknown) date) unknown) (unknown) (no (unknown) (unknown) Discharge orders (units (unknown) date) + Medications unknown) (unknown) (no (unknown) (unknown) Discharge (units (unkn own) date) provider: unknown) (unknown) (no (unknown) (unknown) Discontinued (units (u nknown) date) unknown) (unknown) (no (unknown) (unknown) Eczema (units (unkno wn) date) unknown) (unknown) (no (unknown) (unknown) Exam (units (unkno wn) date) unknown) (unknown) (no (unknown) (unknown) Family History (units (unknown) date) (Reviewed 01/23/22 unknown) @ 10:31 by Anne-Marie Clancy MD) (unknown) (no (unknown) (unknown) FiO2 21 (units (unkno wn) date) unknown) (unknown) (no (unknown) (unknown) Follow (units (unkno wn) date) up/Referrals: unknown) (unknown) (no (unknown) (unknown) Fraction of (units (un known) date) Inspired Oxygen 40 unknown) (unknown) (no (unknown) (unknown) Wednesday.? She has (units (unknown) date) had multiple lack unknown) stools that she describes as diarrhea like (unknown) (no (unknown) (unknown) Has provider been (units (unknown) date) notified: Yes unknown) (unknown) (no (unknown) (unknown) History of (units (unk nown) date) Present Illness unknown) (unknown) (no (unknown) (unknown) History of (units (unk nown) date) hysterectomy for unknown) cancer (unknown) (no (unknown) (unknown) Impetigo (units (unkno wn) date) unknown) (unknown) (no (unknown) (unknown) Incontinence (units (u nknown) date) unknown) (unknown) (no (unknown) (unknown) [facility] (units (unknown) date) [address] unknown) [place] [id number] (unknown) (no (unknown) (unknown) Chung Mcdonald, (units (unknown) date) DO unknown) (unknown) (no (unknown) (unknown) Laboratory (units (unk nown) date) Results - last 24 unknown) hr (unknown) (no (unknown) (unknown) Labs (units (unkno wn) date) unknown) (unknown) (no (unknown) (unknown) Labs: (units (unkno wn) date) unknown) (unknown) (no (unknown) (unknown) Location: (units (unkn own) date) Determined by unknown) Patient (unknown) (no (unknown) (unknown) Medical Advice, (units (unknown) date) giving her oral unknown) digoxin and will discharge, we will provide (unknown) (no (unknown) (unknown) Medical History (units (unknown) date) (Reviewed 01/23/22 unknown) @ 10:31 by Anne-Marie Clancy MD) (unknown) (no (unknown) (unknown) Morbid obesity (units (unknown) date) due to excess unknown) calories (unknown) (no (unknown) (unknown) Mother (units (unknown) date) CVA (cerebral unknown) vascular accident) (unknown) (no (unknown) (unknown) Narrative: (units (unk nown) date) unknown) (unknown) (no (unknown) (unknown) Need monitoring (units (unknown) date) of Renal functions unknown) and refill by Cardiology (unknown) (no (unknown) (unknown) New (units (unkno wn) date) unknown) (unknown) (no (unknown) (unknown) Nursing Discharge (units (unknown) date) Comment: MD and RN unknown) educated patient of risks in regards to (unknown) (no (unknown) (unknown) Objective (units (unkn own) date) unknown) (unknown) (no (unknown) (unknown) Ordered By: (units (un known) date) Benito unknown) [place] (unknown) (no (unknown) (unknown) Other Ambulatory (units (unknown) date) Orders: unknown) (unknown) (no (unknown) (unknown) Oxygen Delivery (units (unknown) date) Method Room Air unknown) Room Air (unknown) (no (unknown) (unknown) Oxygen Delivery (units (unknown) date) Method Room Air unknown) (unknown) (no (unknown) (unknown) Oxygen Delivery (units (unknown) date) Method unknown) (unknown) (no (unknown) (unknown) Oxygen Flow Rate (units (unknown) date) 0 unknown) (unknown) (no (unknown) (unknown) Oxygen Flow Rate (units (unknown) date) unknown) (unknown) (no (unknown) (unknown) PFSH (units (unkno wn) date) unknown) (unknown) (no (unknown) (unknown) Patient (units (unkno wn) date) Disposition: Left unknown) Against Medical Advice (unknown) (no (unknown) (unknown) Patient: (units (unkno wn) date) Rosalba Pabon MR#: unknown) [id number] (unknown) (no (unknown) (unknown) Chung Mcdonald, (units (unknown) date) DO [Primary Care unknown) Provider] (unknown) (no (unknown) (unknown) Physician (units (unkn own) date) Instructions: unknown) Evaluate and Treat (unknown) (no (unknown) (unknown) Prescriptions: (units (unknown) date) unknown) (unknown) (no (unknown) (unknown) Primary Care (units (u nknown) date) Provider: unknown) Chung Mcdonald (unknown) (no (unknown) (unknown) Primary care (units (u nknown) date) physician: unknown) (unknown) (no (unknown) (unknown) Provider (units (unkno wn) date) Discharge Comment: unknown) Discussed extensively regarding very high-risk (unknown) (no (unknown) (unknown) Provider (units (unkno wn) date) unknown) (unknown) (no (unknown) (unknown) Provider: (units (unkn own) date) Kurt Simon unknown) avila [place] (unknown) (no (unknown) (unknown) Pulmonary (units (unkn own) date) hypertension unknown) (unknown) (no (unknown) (unknown) Pulse Oximetry 92 (units (unknown) date) 95 96 unknown) (unknown) (no (unknown) (unknown) Pulse Oximetry 98 (units (unknown) date) unknown) (unknown) (no (unknown) (unknown) Pulse Oximetry (units (unknown) date) unknown) (unknown) (no (unknown) (unknown) Pulse Rate 130 H (units (unknown) date) 113 H unknown) (unknown) (no (unknown) (unknown) Pulse Rate 131 H (units (unknown) date) 132 H unknown) (unknown) (no (unknown) (unknown) Pulse Rate (units (unk nown) date) unknown) (unknown) (no (unknown) (unknown) RVR, patient (units (u nknown) date) refused and says unknown) that she understands the risks of leaving Against (unknown) (no (unknown) (unknown) Reason for (units (unk nown) date) consultation: gi unknown) bleed (unknown) (no (unknown) (unknown) Referral to: (units (u nknown) date) (Schedule) unknown) Timeframe: 1 Day (unknown) (no (unknown) (unknown) Respiratory Rate (units (unknown) date) 21 22 unknown) (unknown) (no (unknown) (unknown) Respiratory Rate (units (unknown) date) unknown) (unknown) (no (unknown) (unknown) Restless leg (units (u nknown) date) syndrome unknown) (unknown) (no (unknown) (unknown) Result Diagrams: (units (unknown) date) unknown) (unknown) (no (unknown) (unknown) Right-sided low (units (unknown) date) back pain with unknown) sciatica (unknown) (no (unknown) (unknown) Rx Instructions: (units (unknown) date) unknown) (unknown) (no (unknown) (unknown) SaO2/FiO2 Ratio (units (unknown) date) 235 unknown) (unknown) (no (unknown) (unknown) Signed By: (units (unk nown) date) unknown) (unknown) (no (unknown) (unknown) Smoking Status: (units (unknown) date) Current every day unknown) smoker (unknown) (no (unknown) (unknown) Social History (units (unknown) date) (Reviewed 01/21/22 unknown) @ 15:14 by Lilian Armstrong DO) (unknown) (no (unknown) (unknown) Spiriva with (units (u nknown) date) HandiHaler 18 mcg unknown) capsule, w/inhalation device (unknown) (no (unknown) (unknown) Staph skin (units (unk nown) date) infection unknown) (unknown) (no (unknown) (unknown) Surgical History (units (unknown) date) (Reviewed 01/23/22 unknown) @ 10:31 by Anne-Marie Clancy MD) (unknown) (no (unknown) (unknown) Tachycardia (units (un known) date) unknown) (unknown) (no (unknown) (unknown) This is a (units (unkn own) date) 56-year-old female unknown) with history of pulmonary hypertension, COPD, CHF, (unknown) (no (unknown) (unknown) Benito (units (u nknown) date) MD [place] unknown) (unknown) (no (unknown) (unknown) Vital Signs (units (un known) date) unknown) (unknown) (no (unknown) (unknown) Xarelto 20 mg (units ( unknown) date) tablet unknown) (unknown) (no (unknown) (unknown) [Embedded Image (units (unknown) date) Not Available] unknown) (unknown) (no (unknown) (unknown) albuterol sulfate (units (unknown) date) [Ventolin HFA] 90 unknown) mcg/actuation HFA aerosol inhaler (unknown) (no (unknown) (unknown) alcohol intake: (units (unknown) date) current unknown) (unknown) (no (unknown) (unknown) amlodipine 5 mg (units (unknown) date) tablet unknown) (unknown) (no (unknown) (unknown) atrial (units (unkno wn) date) fibrillation on unknown) Xarelto with complaint of coffee-ground emesis and (unknown) (no (unknown) (unknown) breath.? She had (units (unknown) date) nausea and unknown) vomiting she states she is thrown up 5 times since (unknown) (no (unknown) (unknown) clobetasol 0.05 % (units (unknown) date) solution unknown) (unknown) (no (unknown) (unknown) complete (units (unkno wn) date) hysterectomy, she unknown) is supposed to be seen for EGD and colonoscopy.? She (unknown) (no (unknown) (unknown) digoxin 250 mcg (units (unknown) date) (0.25 mg) tablet unknown) (unknown) (no (unknown) (unknown) does still smoke, (units (unknown) date) she drinks 2-3 unknown) white claws daily, no illicit.? She is been (unknown) (no (unknown) (unknown) generalized (units (un known) date) weakness when I unknown) saw her, some abdominal discomfort but in general (unknown) (no (unknown) (unknown) has resolved when (units (unknown) date) she is not unknown) exerting herself as well as feels actively short of (unknown) (no (unknown) (unknown) household (units (unkn own) date) members: friend(s) unknown) (unknown) (no (unknown) (unknown) leaving AMA and (units (unknown) date) refusing unknown) prescribed treatment. Pt stated 'I understand. I'm (unknown) (no (unknown) (unknown) leaving.' AMA (units ( unknown) date) signed and placed unknown) in patient's chart. (unknown) (no (unknown) (unknown) melanotic stools (units (unknown) date) since Wednesday or unknown) Wednesday the 18 of January.? Patient also notes (unknown) (no (unknown) (unknown) metoprolol (units (unk nown) date) succinate 50 mg unknown) tablet extended release 24 hr (unknown) (no (unknown) (unknown) metoprolol (units (unk nown) date) tartrate unknown) [Lopressor] 50 mg tablet (unknown) (no (unknown) (unknown) not felt well she (units (unknown) date) is felt unknown) increasingly fatigued lightheaded like she is going to (unknown) (no (unknown) (unknown) pass out she has (units (unknown) date) not had actual unknown) syncope, she has had some chest pressure which (unknown) (no (unknown) (unknown) pramipexole (units (un known) date) [Mirapex] 0.25 mg unknown) tablet (unknown) (no (unknown) (unknown) prescriptions (units ( unknown) date) also. A very unknown) high-risk situation (unknown) (no (unknown) (unknown) puncture 1 cap (units (unknown) date) using device; one unknown) dose = 2 inhalations (unknown) (no (unknown) (unknown) quit status: has (units (unknown) date) quit before unknown) (unknown) (no (unknown) (unknown) seems to be (units (un known) date) comfortable. unknown) (unknown) (no (unknown) (unknown) she was having (units (unknown) date) episodes at least unknown) a couple weeks ago.? Patient has noted she has (unknown) (no (unknown) (unknown) since Wednesday.? (units (unknown) date) Patient denies any unknown) swelling of extremities.? She is had a prior (unknown) (no (unknown) (unknown) situation and (units ( unknown) date) Cardiology unknown) recommendations for starting her on digoxin for AFib (unknown) (no (unknown) (unknown) spironolactone 25 (units (unknown) date) mg tablet unknown) (unknown) (no (unknown) (unknown) taking ibuprofen (units (unknown) date) 8 tablets of 200 unknown) mg ibuprofen. Patient continues to have some (unknown) (no (unknown) (unknown) tolterodine (units (un known) date) [Detrol LA] 2 mg unknown) capsule,extended release 24hr Result panel 78 (unknown) (no (unknown) (unknown) (no value) (units (unk nown) date) unknown) (unknown) (no (unknown) (unknown) (past 8 hours): (units (unknown) date) unknown) (unknown) (no (unknown) (unknown) 0.25 mg PO (units (unk nown) date) BEDTIME Qty: 90 unknown) 1RF (unknown) (no (unknown) (unknown) 05:00 01/25/22 (units (unknown) date) unknown) (unknown) (no (unknown) (unknown) 08:00 01/25/22 (units (unknown) date) unknown) (unknown) (no (unknown) (unknown) 09:00 01/25/22 (units (unknown) date) unknown) (unknown) (no (unknown) (unknown) 09:00 (units (unkno wn) date) unknown) (unknown) (no (unknown) (unknown) 1 applic topical (units (unknown) date) BEDTIME Qty: 25 unknown) 0RF (unknown) (no (unknown) (unknown) 1 cap inhalation (units (unknown) date) DAILY Qty: 90 1RF unknown) (unknown) (no (unknown) (unknown) 1 puff INHALATION (units (unknown) date) Q6H PRN (Reason: unknown) shortness of breath or wheezing) Qty: 18 (unknown) (no (unknown) (unknown) 01/21/22 16:06 (units (unknown) date) unknown) (unknown) (no (unknown) (unknown) 01/21/22 16:17 (units (unknown) date) unknown) (unknown) (no (unknown) (unknown) 01/24/22 04:54 (units (unknown) date) unknown) (unknown) (no (unknown) (unknown) 01/24/22 14:42 (units (unknown) date) unknown) (unknown) (no (unknown) (unknown) 01/24/22 (units (unkno wn) date) unknown) (unknown) (no (unknown) (unknown) 01/25/22 (units (unkno wn) date) unknown) (unknown) (no (unknown) (unknown) 10:15 01/25/22 (units (unknown) date) unknown) (unknown) (no (unknown) (unknown) 11:30 (units (unkno wn) date) unknown) (unknown) (no (unknown) (unknown) 11:31 (units (unkno wn) date) unknown) (unknown) (no (unknown) (unknown) 19:05 (units (unkno wn) date) unknown) (unknown) (no (unknown) (unknown) 2 mg PO BEDTIME (units (unknown) date) Qty: 90 1RF unknown) (unknown) (no (unknown) (unknown) 2 puff inhalation (units (unknown) date) Q8H Qty: 12.9 2RF unknown) (unknown) (no (unknown) (unknown) 20 mg PO DAILY (units (unknown) date) unknown) (unknown) (no (unknown) (unknown) 25 mg PO DAILY (units (unknown) date) unknown) (unknown) (no (unknown) (unknown) 250 mcg PO DAILY (units (unknown) date) Qty: 7 0RF unknown) (unknown) (no (unknown) (unknown) 5 mg PO BID (units (un known) date) unknown) (unknown) (no (unknown) (unknown) 50 mg PO BID Qty: (units (unknown) date) 180 1RF unknown) (unknown) (no (unknown) (unknown) 50 mg PO TID 30 (units (unknown) date) Days Qty: 90 0RF unknown) (unknown) (no (unknown) (unknown) [id number] (units (unkno wn) date) unknown) (unknown) (no (unknown) (unknown) 5RF (units (unkno wn) date) unknown) (unknown) (no (unknown) (unknown) ABG Base Excess (units (unknown) date) 11.0 H unknown) (unknown) (no (unknown) (unknown) ABG HCO3 34 H (units ( unknown) date) unknown) (unknown) (no (unknown) (unknown) ABG O2 Saturation (units (unknown) date) 92 L unknown) (unknown) (no (unknown) (unknown) ABG Total CO2 35 (units (unknown) date) H unknown) (unknown) (no (unknown) (unknown) ABG pCO2 44.3 (units ( unknown) date) unknown) (unknown) (no (unknown) (unknown) ABG pH 7.49 H (units ( unknown) date) unknown) (unknown) (no (unknown) (unknown) ABG pO2 58 L (units (u nknown) date) unknown) (unknown) (no (unknown) (unknown) AFib with RVR, (units (unknown) date) rate controlled unknown) not achieved, cardiology recommended digoxin, (unknown) (no (unknown) (unknown) Abdominal pain (units (unknown) date) unknown) (unknown) (no (unknown) (unknown) Acute respiratory (units (unknown) date) failure with unknown) Hypoxia most likely secondary to COPD (unknown) (no (unknown) (unknown) Acute symptomatic (units (unknown) date) blood loss anemia unknown) most likely related to upper GI bleed (unknown) (no (unknown) (unknown) Age/Sex: 56 / F (units (unknown) date) unknown) (unknown) (no (unknown) (unknown) Allergic (units (unkno wn) date) dermatitis of unknown) eyelids of both eyes (unknown) (no (unknown) (unknown) Anemia (units (unkno wn) date) unknown) (unknown) (no (unknown) (unknown) Apply twice week (units (unknown) date) unknown) (unknown) (no (unknown) (unknown) Arthritis (units (unkn own) date) (Unknown) unknown) (unknown) (no (unknown) (unknown) Asthma (Unknown) (units (unknown) date) unknown) (unknown) (no (unknown) (unknown) Asthma (units (unkno wn) date) unknown) (unknown) (no (unknown) (unknown) Atrovent HFA 17 (units (unknown) date) mcg/actuation HFA unknown) aerosol inhaler (unknown) (no (unknown) (unknown) Blood Pressure (units (unknown) date) 110/71 unknown) (unknown) (no (unknown) (unknown) Blood Pressure (units (unknown) date) 99/73 unknown) (unknown) (no (unknown) (unknown) COPD (chronic (units ( unknown) date) obstructive unknown) pulmonary disease) (unknown) (no (unknown) (unknown) Carpal tunnel (units ( unknown) date) syndrome (-2017) unknown) (unknown) (no (unknown) (unknown) Chief complaint: (units (unknown) date) Coffee ground unknown) emesis, CHF, +thinners (unknown) (no (unknown) (unknown) Chronic atrial (units (unknown) date) fibrillation on unknown) anticoagulation - hold home anticoagulation in (unknown) (no (unknown) (unknown) Chronic atrial (units (unknown) date) fibrillation unknown) (unknown) (no (unknown) (unknown) Chronic hypoxic (units (unknown) date) respiratory unknown) failure with underlying pulmonary hypertension and (unknown) (no (unknown) (unknown) Comment: (units (unkno wn) date) unknown) (unknown) (no (unknown) (unknown) Consult to (units (unk nown) date) General Surgery unknown) Stat (unknown) (no (unknown) (unknown) Consult to (units (unk nown) date) Physical Therapy unknown) Evaluate + Treat (unknown) (no (unknown) (unknown) Consulting (units (unk nown) date) Provider: unknown) Anne-Marie Clancy (unknown) (no (unknown) (unknown) Consults: (units (unkn own) date) unknown) (unknown) (no (unknown) (unknown) Continued (units (unkn own) date) unknown) (unknown) (no (unknown) (unknown) Cor pulmonale (units ( unknown) date) (chronic) unknown) (unknown) (no (unknown) (unknown) : 1965 (units (unknown) date) Acct:[id number] unknown) (unknown) (no (unknown) (unknown) Date Patient (units (u nknown) date) Seen: 01/25/22 unknown) (unknown) (no (unknown) (unknown) Date of Service: (units (unknown) date) 01/21/22 unknown) (unknown) (no (unknown) (unknown) Date of (units (unkno wn) date) admission: unknown) (unknown) (no (unknown) (unknown) Discharge Data (units (unknown) date) unknown) (unknown) (no (unknown) (unknown) Discharge (units (unkn own) date) Diagnosis: unknown) (unknown) (no (unknown) (unknown) Discharge Plan (units (unknown) date) unknown) (unknown) (no (unknown) (unknown) Discharge (units (unkn own) date) Providers unknown) (unknown) (no (unknown) (unknown) Discharge Summary (units (unknown) date) unknown) (unknown) (no (unknown) (unknown) Discharge orders (units (unknown) date) + Medications unknown) (unknown) (no (unknown) (unknown) Discharge (units (unkn own) date) provider: unknown) (unknown) (no (unknown) (unknown) Discontinued (units (u nknown) date) unknown) (unknown) (no (unknown) (unknown) Eczema (units (unkno wn) date) unknown) (unknown) (no (unknown) (unknown) Exam (units (unkno wn) date) unknown) (unknown) (no (unknown) (unknown) Family History (units (unknown) date) (Reviewed 01/23/22 unknown) @ 10:31 by Anne-Marie Clancy MD) (unknown) (no (unknown) (unknown) FiO2 21 (units (unkno wn) date) unknown) (unknown) (no (unknown) (unknown) Follow (units (unkno wn) date) up/Referrals: unknown) (unknown) (no (unknown) (unknown) Fraction of (units (un known) date) Inspired Oxygen 40 unknown) (unknown) (no (unknown) (unknown) Wednesday.? She has (units (unknown) date) had multiple lack unknown) stools that she describes as diarrhea like (unknown) (no (unknown) (unknown) Has provider been (units (unknown) date) notified: Yes unknown) (unknown) (no (unknown) (unknown) History of (units (unk nown) date) Present Illness unknown) (unknown) (no (unknown) (unknown) History of (units (unk nown) date) hysterectomy for unknown) cancer (unknown) (no (unknown) (unknown) Hold (units (unkno wn) date) anticoagulation unknown) given active bleeding, SCDs for DVT prophylaxis, Protonix (unknown) (no (unknown) (unknown) Hospital Course (units (unknown) date) unknown) (unknown) (no (unknown) (unknown) Hypokalemia - (units ( unknown) date) improving unknown) (unknown) (no (unknown) (unknown) IV for GI (units (unkn own) date) prophylaxis unknown) (unknown) (no (unknown) (unknown) Impetigo (units (unkno wn) date) unknown) (unknown) (no (unknown) (unknown) Incontinence (units (u nknown) date) unknown) (unknown) (no (unknown) (unknown) [facility] (units (unknown) date) [address] [place] [address] unknown) [place] [address] (unknown) (no (unknown) (unknown) Chung Mcdonald, (units (unknown) date) DO unknown) (unknown) (no (unknown) (unknown) Laboratory (units (unk nown) date) Results - last 24 unknown) hr (unknown) (no (unknown) (unknown) Labs (units (unkno wn) date) unknown) (unknown) (no (unknown) (unknown) Labs: (units (unkno wn) date) unknown) (unknown) (no (unknown) (unknown) Location: (units (unkn own) date) Determined by unknown) Patient (unknown) (no (unknown) (unknown) Medical Advice, (units (unknown) date) giving her oral unknown) digoxin and will discharge, we will provide (unknown) (no (unknown) (unknown) Medical History (units (unknown) date) (Reviewed 01/23/22 unknown) @ 10:31 by Anne-Marie Clancy MD) (unknown) (no (unknown) (unknown) Morbid obesity (units (unknown) date) due to excess unknown) calories (unknown) (no (unknown) (unknown) Mother (units (unknown) date) CVA (cerebral unknown) vascular accident) (unknown) (no (unknown) (unknown) Narrative: (units (unk nown) date) unknown) (unknown) (no (unknown) (unknown) Need monitoring (units (unknown) date) of Renal functions unknown) and refill by Cardiology (unknown) (no (unknown) (unknown) New (units (unkno wn) date) unknown) (unknown) (no (unknown) (unknown) Nursing Discharge (units (unknown) date) Comment: MD and RN unknown) educated patient of risks in regards to (unknown) (no (unknown) (unknown) Objective (units (unkn own) date) unknown) (unknown) (no (unknown) (unknown) Ordered By: (units (un known) date) Benito unknown) Aurora (unknown) (no (unknown) (unknown) Other Ambulatory (units (unknown) date) Orders: unknown) (unknown) (no (unknown) (unknown) Oxygen Delivery (units (unknown) date) Method Room Air unknown) Room Air (unknown) (no (unknown) (unknown) Oxygen Delivery (units (unknown) date) Method Room Air unknown) (unknown) (no (unknown) (unknown) Oxygen Delivery (units (unknown) date) Method unknown) (unknown) (no (unknown) (unknown) Oxygen Flow Rate (units (unknown) date) 0 unknown) (unknown) (no (unknown) (unknown) Oxygen Flow Rate (units (unknown) date) unknown) (unknown) (no (unknown) (unknown) PFSH (units (unkno wn) date) unknown) (unknown) (no (unknown) (unknown) Patient (units (unkno wn) date) Disposition: Left unknown) Against Medical Advice (unknown) (no (unknown) (unknown) Patient is (units (unk nown) date) high-risk for unknown) readmission and still continues to be short of breath (unknown) (no (unknown) (unknown) Patient left (units (u nknown) date) Against Medical unknown) Advice even after significant counseling and (unknown) (no (unknown) (unknown) Patient: (units (unkno wn) date) Rosalba Pabon MR#: unknown) [id number] (unknown) (no (unknown) (unknown) Chung Mcdonald, (units (unknown) date) DO [Primary Care unknown) Provider] (unknown) (no (unknown) (unknown) Physician (units (unkn own) date) Instructions: unknown) Evaluate and Treat (unknown) (no (unknown) (unknown) Prescriptions: (units (unknown) date) unknown) (unknown) (no (unknown) (unknown) Primary Care (units (u nknown) date) Provider: unknown) Chung Mcdonald (unknown) (no (unknown) (unknown) Primary care (units (u nknown) date) physician: unknown) (unknown) (no (unknown) (unknown) Provider (units (unkno wn) date) Discharge Comment: unknown) Discussed extensively regarding very high-risk (unknown) (no (unknown) (unknown) Provider (units (unkno wn) date) unknown) (unknown) (no (unknown) (unknown) Provider: (units (unkn own) date) Kurt Simon unknown) avila STEVENSON (unknown) (no (unknown) (unknown) Pulmonary (units (unkn own) date) hypertension unknown) (unknown) (no (unknown) (unknown) Pulse Oximetry 92 (units (unknown) date) 95 96 unknown) (unknown) (no (unknown) (unknown) Pulse Oximetry 98 (units (unknown) date) unknown) (unknown) (no (unknown) (unknown) Pulse Oximetry (units (unknown) date) unknown) (unknown) (no (unknown) (unknown) Pulse Rate 130 H (units (unknown) date) 113 H unknown) (unknown) (no (unknown) (unknown) Pulse Rate 131 H (units (unknown) date) 132 H unknown) (unknown) (no (unknown) (unknown) Pulse Rate (units (unk nown) date) unknown) (unknown) (no (unknown) (unknown) RVR, patient (units (u nknown) date) refused and says unknown) that she understands the risks of leaving Against (unknown) (no (unknown) (unknown) Reason for (units (unk nown) date) consultation: gi unknown) bleed (unknown) (no (unknown) (unknown) Referral to: (units (u nknown) date) (Schedule) unknown) Timeframe: 1 Day (unknown) (no (unknown) (unknown) Respiratory Rate (units (unknown) date) 21 22 unknown) (unknown) (no (unknown) (unknown) Respiratory Rate (units (unknown) date) unknown) (unknown) (no (unknown) (unknown) Restless leg (units (u nknown) date) syndrome unknown) (unknown) (no (unknown) (unknown) Result Diagrams: (units (unknown) date) unknown) (unknown) (no (unknown) (unknown) Right-sided low (units (unknown) date) back pain with unknown) sciatica (unknown) (no (unknown) (unknown) Rx Instructions: (units (unknown) date) unknown) (unknown) (no (unknown) (unknown) SaO2/FiO2 Ratio (units (unknown) date) 235 unknown) (unknown) (no (unknown) (unknown) Signed By: (units (unk nown) date) unknown) (unknown) (no (unknown) (unknown) Smoking Status: (units (unknown) date) Current every day unknown) smoker (unknown) (no (unknown) (unknown) Social History (units (unknown) date) (Reviewed 01/21/22 unknown) @ 15:14 by Lilian Armstrong DO) (unknown) (no (unknown) (unknown) Spiriva with (units (u nknown) date) HandiHaler 18 mcg unknown) capsule, w/inhalation device (unknown) (no (unknown) (unknown) Staph skin (units (unk nown) date) infection unknown) (unknown) (no (unknown) (unknown) Summary (units (unkno wn) date) unknown) (unknown) (no (unknown) (unknown) Surgical History (units (unknown) date) (Reviewed 01/23/22 unknown) @ 10:31 by Anne-Marie Clancy MD) (unknown) (no (unknown) (unknown) Tachycardia (units (un known) date) unknown) (unknown) (no (unknown) (unknown) This is a (units (unkn own) date) 56-year-old female unknown) with history of pulmonary hypertension, COPD, CHF, (unknown) (no (unknown) (unknown) Benito (units (u nknown) date) MD Aurora unknown) (unknown) (no (unknown) (unknown) Vital Signs (units (un known) date) unknown) (unknown) (no (unknown) (unknown) Xarelto 20 mg (units ( unknown) date) tablet unknown) (unknown) (no (unknown) (unknown) [Embedded Image (units (unknown) date) Not Available] unknown) (unknown) (no (unknown) (unknown) albuterol sulfate (units (unknown) date) [Ventolin HFA] 90 unknown) mcg/actuation HFA aerosol inhaler (unknown) (no (unknown) (unknown) alcohol intake: (units (unknown) date) current unknown) (unknown) (no (unknown) (unknown) amlodipine 5 mg (units (unknown) date) tablet unknown) (unknown) (no (unknown) (unknown) atrial (units (unkno wn) date) fibrillation on unknown) Xarelto with complaint of coffee-ground emesis and (unknown) (no (unknown) (unknown) breath.? She had (units (unknown) date) nausea and unknown) vomiting she states she is thrown up 5 times since (unknown) (no (unknown) (unknown) clobetasol 0.05 % (units (unknown) date) solution unknown) (unknown) (no (unknown) (unknown) complete (units (unkno wn) date) hysterectomy, she unknown) is supposed to be seen for EGD and colonoscopy.? She (unknown) (no (unknown) (unknown) concern for (units (un known) date) life-threatening unknown) event given poorly controlled heart rate (unknown) (no (unknown) (unknown) digoxin 250 mcg (units (unknown) date) (0.25 mg) tablet unknown) (unknown) (no (unknown) (unknown) does still smoke, (units (unknown) date) she drinks 2-3 unknown) white claws daily, no illicit.? She is been (unknown) (no (unknown) (unknown) exacerbation (units (u nknown) date) unknown) (unknown) (no (unknown) (unknown) generalized (units (un known) date) weakness when I unknown) saw her, some abdominal discomfort but in general (unknown) (no (unknown) (unknown) has resolved when (units (unknown) date) she is not unknown) exerting herself as well as feels actively short of (unknown) (no (unknown) (unknown) household (units (unkn own) date) members: friend(s) unknown) (unknown) (no (unknown) (unknown) leaving AMA and (units (unknown) date) refusing unknown) prescribed treatment. Pt stated 'I understand. I'm (unknown) (no (unknown) (unknown) leaving.' AMA (units ( unknown) date) signed and placed unknown) in patient's chart. (unknown) (no (unknown) (unknown) melanotic stools (units (unknown) date) since Wednesday or unknown) Wednesday the 18 of January.? Patient also notes (unknown) (no (unknown) (unknown) metoprolol (units (unk nown) date) succinate 50 mg unknown) tablet extended release 24 hr (unknown) (no (unknown) (unknown) metoprolol (units (unk nown) date) tartrate unknown) [Lopressor] 50 mg tablet (unknown) (no (unknown) (unknown) not felt well she (units (unknown) date) is felt unknown) increasingly fatigued lightheaded like she is going to (unknown) (no (unknown) (unknown) obesity (units (unkno wn) date) hypoventilatory unknown) syndrome (unknown) (no (unknown) (unknown) pass out she has (units (unknown) date) not had actual unknown) syncope, she has had some chest pressure which (unknown) (no (unknown) (unknown) patient left (units (u nknown) date) Against Medical unknown) Advice (unknown) (no (unknown) (unknown) pramipexole (units (un known) date) [Mirapex] 0.25 mg unknown) tablet (unknown) (no (unknown) (unknown) prescriptions (units ( unknown) date) also. A very unknown) high-risk situation (unknown) (no (unknown) (unknown) puncture 1 cap (units (unknown) date) using device; one unknown) dose = 2 inhalations (unknown) (no (unknown) (unknown) quit status: has (units (unknown) date) quit before unknown) (unknown) (no (unknown) (unknown) secondary to (units (u nknown) date) NSAID use -patient unknown) did not tolerate endoscopy (unknown) (no (unknown) (unknown) seems to be (units (un known) date) comfortable. unknown) (unknown) (no (unknown) (unknown) setting of (units (unk nown) date) bleeding. unknown) (unknown) (no (unknown) (unknown) she was having (units (unknown) date) episodes at least unknown) a couple weeks ago.? Patient has noted she has (unknown) (no (unknown) (unknown) since Wednesday.? (units (unknown) date) Patient denies any unknown) swelling of extremities.? She is had a prior (unknown) (no (unknown) (unknown) situation and (units ( unknown) date) Cardiology unknown) recommendations for starting her on digoxin for AFib (unknown) (no (unknown) (unknown) spironolactone 25 (units (unknown) date) mg tablet unknown) (unknown) (no (unknown) (unknown) taking ibuprofen (units (unknown) date) 8 tablets of 200 unknown) mg ibuprofen. Patient continues to have some (unknown) (no (unknown) (unknown) tolterodine (units (un known) date) [Detrol LA] 2 mg unknown) capsule,extended release 24hr (unknown) (no (unknown) (unknown) with minimal (units (u nknown) date) exertion unknown) Result panel 79 (unknown) (no (unknown) (unknown) (no value) (units (unk nown) date) unknown) (unknown) (no (unknown) (unknown) (past 8 hours): (units (unknown) date) unknown) (unknown) (no (unknown) (unknown) 0.25 mg PO (units (unk nown) date) BEDTIME Qty: 90 unknown) 1RF (unknown) (no (unknown) (unknown) 05:00 01/25/22 (units (unknown) date) unknown) (unknown) (no (unknown) (unknown) 08:00 01/25/22 (units (unknown) date) unknown) (unknown) (no (unknown) (unknown) 09:00 01/25/22 (units (unknown) date) unknown) (unknown) (no (unknown) (unknown) 09:00 (units (unkno wn) date) unknown) (unknown) (no (unknown) (unknown) 1 applic topical (units (unknown) date) BEDTIME Qty: 25 unknown) 0RF (unknown) (no (unknown) (unknown) 1 cap inhalation (units (unknown) date) DAILY Qty: 90 1RF unknown) (unknown) (no (unknown) (unknown) 1 puff INHALATION (units (unknown) date) Q6H PRN (Reason: unknown) shortness of breath or wheezing) Qty: 18 (unknown) (no (unknown) (unknown) 01/21/22 16:06 (units (unknown) date) unknown) (unknown) (no (unknown) (unknown) 01/21/22 16:17 (units (unknown) date) unknown) (unknown) (no (unknown) (unknown) 01/24/22 04:54 (units (unknown) date) unknown) (unknown) (no (unknown) (unknown) 01/24/22 14:42 (units (unknown) date) unknown) (unknown) (no (unknown) (unknown) 01/24/22 (units (unkno wn) date) unknown) (unknown) (no (unknown) (unknown) 01/25/22 (units (unkno wn) date) unknown) (unknown) (no (unknown) (unknown) 10:15 01/25/22 (units (unknown) date) unknown) (unknown) (no (unknown) (unknown) 11:30 (units (unkno wn) date) unknown) (unknown) (no (unknown) (unknown) 11:31 (units (unkno wn) date) unknown) (unknown) (no (unknown) (unknown) 19:05 (units (unkno wn) date) unknown) (unknown) (no (unknown) (unknown) 2 mg PO BEDTIME (units (unknown) date) Qty: 90 1RF unknown) (unknown) (no (unknown) (unknown) 2 puff inhalation (units (unknown) date) Q8H Qty: 12.9 2RF unknown) (unknown) (no (unknown) (unknown) 20 mg PO DAILY (units (unknown) date) unknown) (unknown) (no (unknown) (unknown) 25 mg PO DAILY (units (unknown) date) unknown) (unknown) (no (unknown) (unknown) 250 mcg PO DAILY (units (unknown) date) Qty: 7 0RF unknown) (unknown) (no (unknown) (unknown) 5 mg PO BID (units (un known) date) unknown) (unknown) (no (unknown) (unknown) 50 mg PO BID Qty: (units (unknown) date) 180 1RF unknown) (unknown) (no (unknown) (unknown) 50 mg PO TID 30 (units (unknown) date) Days Qty: 90 0RF unknown) (unknown) (no (unknown) (unknown) [id number] (units (unkno wn) date) unknown) (unknown) (no (unknown) (unknown) 5RF (units (unkno wn) date) unknown) (unknown) (no (unknown) (unknown) ABG Base Excess (units (unknown) date) 11.0 H unknown) (unknown) (no (unknown) (unknown) ABG HCO3 34 H (units ( unknown) date) unknown) (unknown) (no (unknown) (unknown) ABG O2 Saturation (units (unknown) date) 92 L unknown) (unknown) (no (unknown) (unknown) ABG Total CO2 35 (units (unknown) date) H unknown) (unknown) (no (unknown) (unknown) ABG pCO2 44.3 (units ( unknown) date) unknown) (unknown) (no (unknown) (unknown) ABG pH 7.49 H (units ( unknown) date) unknown) (unknown) (no (unknown) (unknown) ABG pO2 58 L (units (u nknown) date) unknown) (unknown) (no (unknown) (unknown) AFib with RVR, (units (unknown) date) rate controlled unknown) not achieved, cardiology recommended digoxin, (unknown) (no (unknown) (unknown) Abdominal pain (units (unknown) date) unknown) (unknown) (no (unknown) (unknown) Acute respiratory (units (unknown) date) failure with unknown) Hypoxia most likely secondary to COPD (unknown) (no (unknown) (unknown) Acute symptomatic (units (unknown) date) blood loss anemia unknown) most likely related to upper GI bleed (unknown) (no (unknown) (unknown) After blood (units (un known) date) transfusion unknown) patient vital signs stabilized. Patient continued to (unknown) (no (unknown) (unknown) Age/Sex: 56 / F (units (unknown) date) unknown) (unknown) (no (unknown) (unknown) Allergic (units (unkno wn) date) dermatitis of unknown) eyelids of both eyes (unknown) (no (unknown) (unknown) Anemia (units (unkno wn) date) unknown) (unknown) (no (unknown) (unknown) Apply twice week (units (unknown) date) unknown) (unknown) (no (unknown) (unknown) Arthritis (units (unkn own) date) (Unknown) unknown) (unknown) (no (unknown) (unknown) Asthma (Unknown) (units (unknown) date) unknown) (unknown) (no (unknown) (unknown) Asthma (units (unkno wn) date) unknown) (unknown) (no (unknown) (unknown) Atrovent HFA 17 (units (unknown) date) mcg/actuation HFA unknown) aerosol inhaler (unknown) (no (unknown) (unknown) Blood Pressure (units (unknown) date) 110/71 unknown) (unknown) (no (unknown) (unknown) Blood Pressure (units (unknown) date) 99/73 unknown) (unknown) (no (unknown) (unknown) COPD (chronic (units ( unknown) date) obstructive unknown) pulmonary disease) (unknown) (no (unknown) (unknown) Carpal tunnel (units ( unknown) date) syndrome (-2017) unknown) (unknown) (no (unknown) (unknown) Chief complaint: (units (unknown) date) Coffee ground unknown) emesis, CHF, +thinners (unknown) (no (unknown) (unknown) Chronic atrial (units (unknown) date) fibrillation on unknown) anticoagulation - hold home anticoagulation in (unknown) (no (unknown) (unknown) Chronic atrial (units (unknown) date) fibrillation unknown) (unknown) (no (unknown) (unknown) Chronic hypoxic (units (unknown) date) respiratory unknown) failure with underlying pulmonary hypertension and (unknown) (no (unknown) (unknown) Comment: (units (unkno wn) date) unknown) (unknown) (no (unknown) (unknown) Consult to (units (unk nown) date) General Surgery unknown) Stat (unknown) (no (unknown) (unknown) Consult to (units (unk nown) date) Physical Therapy unknown) Evaluate + Treat (unknown) (no (unknown) (unknown) Consulting (units (unk nown) date) Provider: unknown) Anne-Marie Clancy (unknown) (no (unknown) (unknown) Consults: (units (unkn own) date) unknown) (unknown) (no (unknown) (unknown) Continued (units (unkn own) date) unknown) (unknown) (no (unknown) (unknown) Cor pulmonale (units ( unknown) date) (chronic) unknown) (unknown) (no (unknown) (unknown) : 1965 (units (unknown) date) Acct:[id number] unknown) (unknown) (no (unknown) (unknown) Date Patient (units (u nknown) date) Seen: 01/25/22 unknown) (unknown) (no (unknown) (unknown) Date of Service: (units (unknown) date) 01/21/22 unknown) (unknown) (no (unknown) (unknown) Date of (units (unkno wn) date) admission: unknown) (unknown) (no (unknown) (unknown) Discharge Data (units (unknown) date) unknown) (unknown) (no (unknown) (unknown) Discharge (units (unkn own) date) Diagnosis: unknown) (unknown) (no (unknown) (unknown) Discharge Plan (units (unknown) date) unknown) (unknown) (no (unknown) (unknown) Discharge (units (unkn own) date) Providers unknown) (unknown) (no (unknown) (unknown) Discharge Summary (units (unknown) date) unknown) (unknown) (no (unknown) (unknown) Discharge orders (units (unknown) date) + Medications unknown) (unknown) (no (unknown) (unknown) Discharge (units (unkn own) date) provider: unknown) (unknown) (no (unknown) (unknown) Discontinued (units (u nknown) date) unknown) (unknown) (no (unknown) (unknown) Eczema (units (unkno wn) date) unknown) (unknown) (no (unknown) (unknown) Exam (units (unkno wn) date) unknown) (unknown) (no (unknown) (unknown) Family History (units (unknown) date) (Reviewed 01/23/22 unknown) @ 10:31 by Anne-Marie Clancy MD) (unknown) (no (unknown) (unknown) FiO2 21 (units (unkno wn) date) unknown) (unknown) (no (unknown) (unknown) Follow (units (unkno wn) date) up/Referrals: unknown) (unknown) (no (unknown) (unknown) Fraction of (units (un known) date) Inspired Oxygen 40 unknown) (unknown) (no (unknown) (unknown) Wednesday.? She has (units (unknown) date) had multiple lack unknown) stools that she describes as diarrhea like (unknown) (no (unknown) (unknown) Has provider been (units (unknown) date) notified: Yes unknown) (unknown) (no (unknown) (unknown) History of (units (unk nown) date) Present Illness unknown) (unknown) (no (unknown) (unknown) History of (units (unk nown) date) hysterectomy for unknown) cancer (unknown) (no (unknown) (unknown) Hold (units (unkno wn) date) anticoagulation unknown) given active bleeding, SCDs for DVT prophylaxis, Protonix (unknown) (no (unknown) (unknown) Hospital Course (units (unknown) date) unknown) (unknown) (no (unknown) (unknown) Hospital Course: (units (unknown) date) unknown) (unknown) (no (unknown) (unknown) Hypokalemia - (units ( unknown) date) improving unknown) (unknown) (no (unknown) (unknown) IV for GI (units (unkn own) date) prophylaxis unknown) (unknown) (no (unknown) (unknown) Impetigo (units (unkno wn) date) unknown) (unknown) (no (unknown) (unknown) Incontinence (units (u nknown) date) unknown) (unknown) (no (unknown) (unknown) [facility] (units (unknown) date) [address] unknown) [place] [id number] (unknown) (no (unknown) (unknown) Chung Mcdonald, (units (unknown) date) DO unknown) (unknown) (no (unknown) (unknown) Laboratory (units (unk nown) date) Results - last 24 unknown) hr (unknown) (no (unknown) (unknown) Labs (units (unkno wn) date) unknown) (unknown) (no (unknown) (unknown) Labs: (units (unkno wn) date) unknown) (unknown) (no (unknown) (unknown) Location: (units (unkn own) date) Determined by unknown) Patient (unknown) (no (unknown) (unknown) Medical Advice, (units (unknown) date) giving her oral unknown) digoxin and will discharge, we will provide (unknown) (no (unknown) (unknown) Medical History (units (unknown) date) (Reviewed 01/23/22 unknown) @ 10:31 by Anne-Marie Clancy MD) (unknown) (no (unknown) (unknown) Morbid obesity (units (unknown) date) due to excess unknown) calories (unknown) (no (unknown) (unknown) Mother (units (unknown) date) CVA (cerebral unknown) vascular accident) (unknown) (no (unknown) (unknown) Ms. Pabon was (units ( unknown) date) initially admitted unknown) to hospital for severe anemia requiring (unknown) (no (unknown) (unknown) Narrative: (units (unk nown) date) unknown) (unknown) (no (unknown) (unknown) Need monitoring (units (unknown) date) of Renal functions unknown) and refill by Cardiology (unknown) (no (unknown) (unknown) New (units (unkno wn) date) unknown) (unknown) (no (unknown) (unknown) Nursing Discharge (units (unknown) date) Comment: and RN unknown) educated patient of risks in regards to (unknown) (no (unknown) (unknown) Objective (units (unkn own) date) unknown) (unknown) (no (unknown) (unknown) Ordered By: (units (un known) date) Benito unknown) [facility] (unknown) (no (unknown) (unknown) Other Ambulatory (units (unknown) date) Orders: unknown) (unknown) (no (unknown) (unknown) Oxygen Delivery (units (unknown) date) Method Room Air unknown) Room Air (unknown) (no (unknown) (unknown) Oxygen Delivery (units (unknown) date) Method Room Air unknown) (unknown) (no (unknown) (unknown) Oxygen Delivery (units (unknown) date) Method unknown) (unknown) (no (unknown) (unknown) Oxygen Flow Rate (units (unknown) date) 0 unknown) (unknown) (no (unknown) (unknown) Oxygen Flow Rate (units (unknown) date) unknown) (unknown) (no (unknown) (unknown) PFSH (units (unkno wn) date) unknown) (unknown) (no (unknown) (unknown) Patient (units (unkno wn) date) Disposition: Left unknown) Against Medical Advice (unknown) (no (unknown) (unknown) Patient is (units (unk nown) date) high-risk for unknown) readmission and still continues to be short of breath (unknown) (no (unknown) (unknown) Patient left (units (u nknown) date) Against Medical unknown) Advice even after significant counseling and (unknown) (no (unknown) (unknown) Patient: (units (unkno wn) date) Rosalba Pabon MR#: unknown) [id number] (unknown) (no (unknown) (unknown) Chung Mcdonald, (units (unknown) date) DO [Primary Care unknown) Provider] (unknown) (no (unknown) (unknown) Physician (units (unkn own) date) Instructions: unknown) Evaluate and Treat (unknown) (no (unknown) (unknown) Prescriptions: (units (unknown) date) unknown) (unknown) (no (unknown) (unknown) Primary Care (units (u nknown) date) Provider: unknown) Chung Mcdonald (unknown) (no (unknown) (unknown) Primary care (units (u nknown) date) physician: unknown) (unknown) (no (unknown) (unknown) Provider (units (unkno wn) date) Discharge Comment: unknown) Discussed extensively regarding very high-risk (unknown) (no (unknown) (unknown) Provider (units (unkno wn) date) unknown) (unknown) (no (unknown) (unknown) Provider: (units (unkn own) date) Kurt Simon unknown) avila STEV[place]SON (unknown) (no (unknown) (unknown) Pulmonary (units (unkn own) date) hypertension unknown) (unknown) (no (unknown) (unknown) Pulse Oximetry 92 (units (unknown) date) 95 96 unknown) (unknown) (no (unknown) (unknown) Pulse Oximetry 98 (units (unknown) date) unknown) (unknown) (no (unknown) (unknown) Pulse Oximetry (units (unknown) date) unknown) (unknown) (no (unknown) (unknown) Pulse Rate 130 H (units (unknown) date) 113 H unknown) (unknown) (no (unknown) (unknown) Pulse Rate 131 H (units (unknown) date) 132 H unknown) (unknown) (no (unknown) (unknown) Pulse Rate (units (unk nown) date) unknown) (unknown) (no (unknown) (unknown) RVR, patient (units (u nknown) date) refused and says unknown) that she understands the risks of leaving Against (unknown) (no (unknown) (unknown) Reason for (units (unk nown) date) consultation: gi unknown) bleed (unknown) (no (unknown) (unknown) Referral to: (units (u nknown) date) (Schedule) unknown) Timeframe: 1 Day (unknown) (no (unknown) (unknown) Respiratory Rate (units (unknown) date) 21 22 unknown) (unknown) (no (unknown) (unknown) Respiratory Rate (units (unknown) date) unknown) (unknown) (no (unknown) (unknown) Restless leg (units (u nknown) date) syndrome unknown) (unknown) (no (unknown) (unknown) Result Diagrams: (units (unknown) date) unknown) (unknown) (no (unknown) (unknown) Right-sided low (units (unknown) date) back pain with unknown) sciatica (unknown) (no (unknown) (unknown) Rx Instructions: (units (unknown) date) unknown) (unknown) (no (unknown) (unknown) SaO2/FiO2 Ratio (units (unknown) date) 235 unknown) (unknown) (no (unknown) (unknown) Signed By: (units (unk nown) date) unknown) (unknown) (no (unknown) (unknown) Smoking Status: (units (unknown) date) Current every day unknown) smoker (unknown) (no (unknown) (unknown) Social History (units (unknown) date) (Reviewed 01/21/22 unknown) @ 15:14 by Lilian Armstrong DO) (unknown) (no (unknown) (unknown) Spiriva with (units (u nknown) date) HandiHaler 18 mcg unknown) capsule, w/inhalation device (unknown) (no (unknown) (unknown) Staph skin (units (unk nown) date) infection unknown) (unknown) (no (unknown) (unknown) Summary (units (unkno wn) date) unknown) (unknown) (no (unknown) (unknown) Surgical History (units (unknown) date) (Reviewed 01/23/22 unknown) @ 10:31 by Anne-Marie Clancy MD) (unknown) (no (unknown) (unknown) Tachycardia (units (un known) date) unknown) (unknown) (no (unknown) (unknown) This is a (units (unkn own) date) 56-year-old female unknown) with history of pulmonary hypertension, COPD, CHF, (unknown) (no (unknown) (unknown) Benito (units (u nknown) date) MD [facility] unknown) (unknown) (no (unknown) (unknown) Vital Signs (units (un known) date) unknown) (unknown) (no (unknown) (unknown) Xarelto 20 mg (units ( unknown) date) tablet unknown) (unknown) (no (unknown) (unknown) [Embedded Image (units (unknown) date) Not Available] unknown) (unknown) (no (unknown) (unknown) after the (units (unkn own) date) procedure. unknown) (unknown) (no (unknown) (unknown) albuterol sulfate (units (unknown) date) [Ventolin HFA] 90 unknown) mcg/actuation HFA aerosol inhaler (unknown) (no (unknown) (unknown) alcohol intake: (units (unknown) date) current unknown) (unknown) (no (unknown) (unknown) amlodipine 5 mg (units (unknown) date) tablet unknown) (unknown) (no (unknown) (unknown) atrial (units (unkno wn) date) fibrillation on unknown) Xarelto with complaint of coffee-ground emesis and (unknown) (no (unknown) (unknown) be monitored in (units (unknown) date) ICU for initial unknown) recovery, surgery been consulted to help with (unknown) (no (unknown) (unknown) breath.? She had (units (unknown) date) nausea and unknown) vomiting she states she is thrown up 5 times since (unknown) (no (unknown) (unknown) clobetasol 0.05 % (units (unknown) date) solution unknown) (unknown) (no (unknown) (unknown) complete (units (unkno wn) date) hysterectomy, she unknown) is supposed to be seen for EGD and colonoscopy.? She (unknown) (no (unknown) (unknown) complete the (units (u nknown) date) procedure because unknown) of significant hypoxia during the procedure (unknown) (no (unknown) (unknown) concern for (units (un known) date) life-threatening unknown) event given poorly controlled heart rate (unknown) (no (unknown) (unknown) continued to have (units (unknown) date) AFib RVR and unknown) hypotensive episodes during this hospitalization. (unknown) (no (unknown) (unknown) digoxin 250 mcg (units (unknown) date) (0.25 mg) tablet unknown) (unknown) (no (unknown) (unknown) does still smoke, (units (unknown) date) she drinks 2-3 unknown) white claws daily, no illicit.? She is been (unknown) (no (unknown) (unknown) exacerbation (units (u nknown) date) unknown) (unknown) (no (unknown) (unknown) extensive (units (unkno wn) date) counseling with unknown) caution patient did agree to go for EGD, but unable to (unknown) (no (unknown) (unknown) generalized (units (un known) date) weakness when I unknown) saw her, some abdominal discomfort but in general (unknown) (no (unknown) (unknown) has resolved when (units (unknown) date) she is not unknown) exerting herself as well as feels actively short of (unknown) (no (unknown) (unknown) household (units (unkn own) date) members: friend(s) unknown) (unknown) (no (unknown) (unknown) initiation, (units (un known) date) anesthesia and unknown) surgery worried about her becoming a vent dependent (unknown) (no (unknown) (unknown) leaving AMA and (units (unknown) date) refusing unknown) prescribed treatment. Pt stated 'I understand. I'm (unknown) (no (unknown) (unknown) leaving.' AMA (units ( unknown) date) signed and placed unknown) in patient's chart. (unknown) (no (unknown) (unknown) melanotic stools (units (unknown) date) since Wednesday or unknown) Wednesday the 18 of January.? Patient also notes (unknown) (no (unknown) (unknown) metoprolol (units (unk nown) date) succinate 50 mg unknown) tablet extended release 24 hr (unknown) (no (unknown) (unknown) metoprolol (units (unk nown) date) tartrate unknown) [Lopressor] 50 mg tablet (unknown) (no (unknown) (unknown) multiple (units (unkno wn) date) transfusions with unknown) a clear history of black-colored stools and (unknown) (no (unknown) (unknown) not felt well she (units (unknown) date) is felt unknown) increasingly fatigued lightheaded like she is going to (unknown) (no (unknown) (unknown) obesity (units (unkno wn) date) hypoventilatory unknown) syndrome (unknown) (no (unknown) (unknown) pass out she has (units (unknown) date) not had actual unknown) syncope, she has had some chest pressure which (unknown) (no (unknown) (unknown) patient left (units (u nknown) date) Against Medical unknown) Advice (unknown) (no (unknown) (unknown) pramipexole (units (un known) date) [Mirapex] 0.25 mg unknown) tablet (unknown) (no (unknown) (unknown) prescriptions (units ( unknown) date) also. A very unknown) high-risk situation (unknown) (no (unknown) (unknown) puncture 1 cap (units (unknown) date) using device; one unknown) dose = 2 inhalations (unknown) (no (unknown) (unknown) quit status: has (units (unknown) date) quit before unknown) (unknown) (no (unknown) (unknown) secondary to (units (u nknown) date) NSAID use -patient unknown) did not tolerate endoscopy (unknown) (no (unknown) (unknown) seems to be (units (un known) date) comfortable. unknown) (unknown) (no (unknown) (unknown) setting of (units (unk nown) date) bleeding. unknown) (unknown) (no (unknown) (unknown) she was having (units (unknown) date) episodes at least unknown) a couple weeks ago.? Patient has noted she has (unknown) (no (unknown) (unknown) significant abuse (units (unknown) date) of NSAIDs almost 2 unknown) g of Motrin a day along with ongoing (unknown) (no (unknown) (unknown) since Wednesday.? (units (unknown) date) Patient denies any unknown) swelling of extremities.? She is had a prior (unknown) (no (unknown) (unknown) situation and (units ( unknown) date) Cardiology unknown) recommendations for starting her on digoxin for AFib (unknown) (no (unknown) (unknown) smoking (units (unkno wn) date) anticoagulation on unknown) board. Patient was transferred to ICU as she (unknown) (no (unknown) (unknown) spironolactone 25 (units (unknown) date) mg tablet unknown) (unknown) (no (unknown) (unknown) taking ibuprofen (units (unknown) date) 8 tablets of 200 unknown) mg ibuprofen. Patient continues to have some (unknown) (no (unknown) (unknown) the endoscopy. (units (unknown) date) Patient initially unknown) refused to go to the procedure, but after (unknown) (no (unknown) (unknown) tolterodine (units (un known) date) [Detrol LA] 2 mg unknown) capsule,extended release 24hr (unknown) (no (unknown) (unknown) with minimal (units (u nknown) date) exertion unknown) Result panel 80 (unknown) (no (unknown) (unknown) (no value) (units (unk nown) date) unknown) (unknown) (no (unknown) (unknown) (past 8 hours): (units (unknown) date) unknown) (unknown) (no (unknown) (unknown) 0.25 mg PO (units (unk nown) date) BEDTIME Qty: 90 unknown) 1RF (unknown) (no (unknown) (unknown) 05:00 01/25/22 (units (unknown) date) unknown) (unknown) (no (unknown) (unknown) 08:00 01/25/22 (units (unknown) date) unknown) (unknown) (no (unknown) (unknown) 09:00 01/25/22 (units (unknown) date) unknown) (unknown) (no (unknown) (unknown) 09:00 (units (unkno wn) date) unknown) (unknown) (no (unknown) (unknown) 1 applic topical (units (unknown) date) BEDTIME Qty: 25 unknown) 0RF (unknown) (no (unknown) (unknown) 1 cap inhalation (units (unknown) date) DAILY Qty: 90 1RF unknown) (unknown) (no (unknown) (unknown) 1 puff INHALATION (units (unknown) date) Q6H PRN (Reason: unknown) shortness of breath or wheezing) Qty: 18 (unknown) (no (unknown) (unknown) 01/21/22 16:06 (units (unknown) date) unknown) (unknown) (no (unknown) (unknown) 01/21/22 16:17 (units (unknown) date) unknown) (unknown) (no (unknown) (unknown) 01/24/22 04:54 (units (unknown) date) unknown) (unknown) (no (unknown) (unknown) 01/24/22 14:42 (units (unknown) date) unknown) (unknown) (no (unknown) (unknown) 01/24/22 (units (unkno wn) date) unknown) (unknown) (no (unknown) (unknown) 01/25/22 (units (unkno wn) date) unknown) (unknown) (no (unknown) (unknown) 10:15 01/25/22 (units (unknown) date) unknown) (unknown) (no (unknown) (unknown) 11:30 (units (unkno wn) date) unknown) (unknown) (no (unknown) (unknown) 11:31 (units (unkno wn) date) unknown) (unknown) (no (unknown) (unknown) 19:05 (units (unkno wn) date) unknown) (unknown) (no (unknown) (unknown) 2 mg PO BEDTIME (units (unknown) date) Qty: 90 1RF unknown) (unknown) (no (unknown) (unknown) 2 puff inhalation (units (unknown) date) Q8H Qty: 12.9 2RF unknown) (unknown) (no (unknown) (unknown) 20 mg PO DAILY (units (unknown) date) unknown) (unknown) (no (unknown) (unknown) 25 mg PO DAILY (units (unknown) date) unknown) (unknown) (no (unknown) (unknown) 250 mcg PO DAILY (units (unknown) date) Qty: 7 0RF unknown) (unknown) (no (unknown) (unknown) 5 mg PO BID (units (un known) date) unknown) (unknown) (no (unknown) (unknown) 50 mg PO BID Qty: (units (unknown) date) 180 1RF unknown) (unknown) (no (unknown) (unknown) 50 mg PO TID 30 (units (unknown) date) Days Qty: 90 0RF unknown) (unknown) (no (unknown) (unknown) [id number] (units (unkno wn) date) unknown) (unknown) (no (unknown) (unknown) 5RF (units (unkno wn) date) unknown) (unknown) (no (unknown) (unknown) ABG Base Excess (units (unknown) date) 11.0 H unknown) (unknown) (no (unknown) (unknown) ABG HCO3 34 H (units ( unknown) date) unknown) (unknown) (no (unknown) (unknown) ABG O2 Saturation (units (unknown) date) 92 L unknown) (unknown) (no (unknown) (unknown) ABG Total CO2 35 (units (unknown) date) H unknown) (unknown) (no (unknown) (unknown) ABG pCO2 44.3 (units ( unknown) date) unknown) (unknown) (no (unknown) (unknown) ABG pH 7.49 H (units ( unknown) date) unknown) (unknown) (no (unknown) (unknown) ABG pO2 58 L (units (u nknown) date) unknown) (unknown) (no (unknown) (unknown) AFib with RVR, (units (unknown) date) rate controlled unknown) not achieved, cardiology recommended digoxin, (unknown) (no (unknown) (unknown) Abdominal pain (units (unknown) date) unknown) (unknown) (no (unknown) (unknown) Acute respiratory (units (unknown) date) failure with unknown) Hypoxia most likely secondary to COPD (unknown) (no (unknown) (unknown) Acute symptomatic (units (unknown) date) blood loss anemia unknown) most likely related to upper GI bleed (unknown) (no (unknown) (unknown) After blood (units (un known) date) transfusion unknown) patient vital signs stabilized. Patient continued to (unknown) (no (unknown) (unknown) Age/Sex: 56 / F (units (unknown) date) unknown) (unknown) (no (unknown) (unknown) Allergic (units (unkno wn) date) dermatitis of unknown) eyelids of both eyes (unknown) (no (unknown) (unknown) Anemia (units (unkno wn) date) unknown) (unknown) (no (unknown) (unknown) Apply twice week (units (unknown) date) unknown) (unknown) (no (unknown) (unknown) Arthritis (units (unkn own) date) (Unknown) unknown) (unknown) (no (unknown) (unknown) Asthma (Unknown) (units (unknown) date) unknown) (unknown) (no (unknown) (unknown) Asthma (units (unkno wn) date) unknown) (unknown) (no (unknown) (unknown) Atrovent HFA 17 (units (unknown) date) mcg/actuation HFA unknown) aerosol inhaler (unknown) (no (unknown) (unknown) Blood Pressure (units (unknown) date) 110/71 unknown) (unknown) (no (unknown) (unknown) Blood Pressure (units (unknown) date) 99/73 unknown) (unknown) (no (unknown) (unknown) COPD (chronic (units ( unknown) date) obstructive unknown) pulmonary disease) (unknown) (no (unknown) (unknown) Carpal tunnel (units ( unknown) date) syndrome (-2017) unknown) (unknown) (no (unknown) (unknown) Chief complaint: (units (unknown) date) Coffee ground unknown) emesis, CHF, +thinners (unknown) (no (unknown) (unknown) Chronic atrial (units (unknown) date) fibrillation on unknown) anticoagulation - hold home anticoagulation in (unknown) (no (unknown) (unknown) Chronic atrial (units (unknown) date) fibrillation unknown) (unknown) (no (unknown) (unknown) Chronic hypoxic (units (unknown) date) respiratory unknown) failure with underlying pulmonary hypertension and (unknown) (no (unknown) (unknown) Comment: (units (unkno wn) date) unknown) (unknown) (no (unknown) (unknown) Consult to (units (unk nown) date) General Surgery unknown) Stat (unknown) (no (unknown) (unknown) Consult to (units (unk nown) date) Physical Therapy unknown) Evaluate + Treat (unknown) (no (unknown) (unknown) Consulting (units (unk nown) date) Provider: unknown) Anne-Marie Clancy (unknown) (no (unknown) (unknown) Consults: (units (unkn own) date) unknown) (unknown) (no (unknown) (unknown) Continued (units (unkn own) date) unknown) (unknown) (no (unknown) (unknown) Cor pulmonale (units ( unknown) date) (chronic) unknown) (unknown) (no (unknown) (unknown) : 1965 (units (unknown) date) Acct:[id number] unknown) (unknown) (no (unknown) (unknown) Date Patient (units (u nknown) date) Seen: 01/25/22 unknown) (unknown) (no (unknown) (unknown) Date of Service: (units (unknown) date) 01/21/22 unknown) (unknown) (no (unknown) (unknown) Date of (units (unkno wn) date) admission: unknown) (unknown) (no (unknown) (unknown) Discharge Data (units (unknown) date) unknown) (unknown) (no (unknown) (unknown) Discharge (units (unkn own) date) Diagnosis: unknown) (unknown) (no (unknown) (unknown) Discharge Plan (units (unknown) date) unknown) (unknown) (no (unknown) (unknown) Discharge (units (unkn own) date) Providers unknown) (unknown) (no (unknown) (unknown) Discharge Summary (units (unknown) date) unknown) (unknown) (no (unknown) (unknown) Discharge orders (units (unknown) date) + Medications unknown) (unknown) (no (unknown) (unknown) Discharge (units (unkn own) date) provider: unknown) (unknown) (no (unknown) (unknown) Discontinued (units (u nknown) date) unknown) (unknown) (no (unknown) (unknown) Eczema (units (unkno wn) date) unknown) (unknown) (no (unknown) (unknown) Exam (units (unkno wn) date) unknown) (unknown) (no (unknown) (unknown) Family History (units (unknown) date) (Reviewed 01/23/22 unknown) @ 10:31 by Anne-Marie Clancy MD) (unknown) (no (unknown) (unknown) FiO2 21 (units (unkno wn) date) unknown) (unknown) (no (unknown) (unknown) Follow (units (unkno wn) date) up/Referrals: unknown) (unknown) (no (unknown) (unknown) Fraction of (units (un known) date) Inspired Oxygen 40 unknown) (unknown) (no (unknown) (unknown) Wednesday.? She has (units (unknown) date) had multiple lack unknown) stools that she describes as diarrhea like (unknown) (no (unknown) (unknown) Has provider been (units (unknown) date) notified: Yes unknown) (unknown) (no (unknown) (unknown) History of (units (unk nown) date) Present Illness unknown) (unknown) (no (unknown) (unknown) History of (units (unk nown) date) hysterectomy for unknown) cancer (unknown) (no (unknown) (unknown) Hold (units (unkno wn) date) anticoagulation unknown) given active bleeding, SCDs for DVT prophylaxis, Protonix (unknown) (no (unknown) (unknown) Hospital Course (units (unknown) date) unknown) (unknown) (no (unknown) (unknown) Hospital Course: (units (unknown) date) unknown) (unknown) (no (unknown) (unknown) Hypokalemia - (units ( unknown) date) improving unknown) (unknown) (no (unknown) (unknown) IV for GI (units (unkn own) date) prophylaxis unknown) (unknown) (no (unknown) (unknown) Impetigo (units (unkno wn) date) unknown) (unknown) (no (unknown) (unknown) Incontinence (units (u nknown) date) unknown) (unknown) (no (unknown) (unknown) [facility] (units (unknown) date) [address] unknown) [place] [id number] (unknown) (no (unknown) (unknown) Chung Mcdonald, (units (unknown) date) DO unknown) (unknown) (no (unknown) (unknown) Laboratory (units (unk nown) date) Results - last 24 unknown) hr (unknown) (no (unknown) (unknown) Labs (units (unkno wn) date) unknown) (unknown) (no (unknown) (unknown) Labs: (units (unkno wn) date) unknown) (unknown) (no (unknown) (unknown) Location: (units (unkn own) date) Determined by unknown) Patient (unknown) (no (unknown) (unknown) Medical Advice, (units (unknown) date) giving her oral unknown) digoxin and will discharge, we will provide (unknown) (no (unknown) (unknown) Medical History (units (unknown) date) (Reviewed 01/23/22 unknown) @ 10:31 by Anne-Marie Clancy MD) (unknown) (no (unknown) (unknown) Morbid obesity (units (unknown) date) due to excess unknown) calories (unknown) (no (unknown) (unknown) Mother (units (unknown) date) CVA (cerebral unknown) vascular accident) (unknown) (no (unknown) (unknown) Ms. Pabon was (units ( unknown) date) initially admitted unknown) to hospital for severe anemia requiring (unknown) (no (unknown) (unknown) Narrative: (units (unk nown) date) unknown) (unknown) (no (unknown) (unknown) Need monitoring (units (unknown) date) of Renal functions unknown) and refill by Cardiology (unknown) (no (unknown) (unknown) New (units (unkno wn) date) unknown) (unknown) (no (unknown) (unknown) Nursing Discharge (units (unknown) date) Comment: MD and RN unknown) educated patient of risks in regards to (unknown) (no (unknown) (unknown) Objective (units (unkn own) date) unknown) (unknown) (no (unknown) (unknown) Ordered By: (units (un known) date) Benito unknown) [facility] (unknown) (no (unknown) (unknown) Other Ambulatory (units (unknown) date) Orders: unknown) (unknown) (no (unknown) (unknown) Oxygen Delivery (units (unknown) date) Method Room Air unknown) Room Air (unknown) (no (unknown) (unknown) Oxygen Delivery (units (unknown) date) Method Room Air unknown) (unknown) (no (unknown) (unknown) Oxygen Delivery (units (unknown) date) Method unknown) (unknown) (no (unknown) (unknown) Oxygen Flow Rate (units (unknown) date) 0 unknown) (unknown) (no (unknown) (unknown) Oxygen Flow Rate (units (unknown) date) unknown) (unknown) (no (unknown) (unknown) PFSH (units (unkno wn) date) unknown) (unknown) (no (unknown) (unknown) Patient (units (unkno wn) date) Disposition: Left unknown) Against Medical Advice (unknown) (no (unknown) (unknown) Patient is (units (unk nown) date) high-risk for unknown) readmission and still continues to be short of breath (unknown) (no (unknown) (unknown) Patient left (units (u nknown) date) Against Medical unknown) Advice even after significant counseling and (unknown) (no (unknown) (unknown) Patient: (units (unkno wn) date) Rosalba Pabon MR#: unknown) [id number] (unknown) (no (unknown) (unknown) Chung Mcdonald, (units (unknown) date) DO [Primary Care unknown) Provider] (unknown) (no (unknown) (unknown) Physician (units (unkn own) date) Instructions: unknown) Evaluate and Treat (unknown) (no (unknown) (unknown) Prescriptions: (units (unknown) date) unknown) (unknown) (no (unknown) (unknown) Primary Care (units (u nknown) date) Provider: unknown) Chung Mcdonald (unknown) (no (unknown) (unknown) Primary care (units (u nknown) date) physician: unknown) (unknown) (no (unknown) (unknown) Provider (units (unkno wn) date) Discharge Comment: unknown) Discussed extensively regarding very high-risk (unknown) (no (unknown) (unknown) Provider (units (unkno wn) date) unknown) (unknown) (no (unknown) (unknown) Provider: (units (unkn own) date) Kurt Simon unknown) avila STEV[place] (unknown) (no (unknown) (unknown) Pulmonary (units (unkn own) date) hypertension unknown) (unknown) (no (unknown) (unknown) Pulse Oximetry 92 (units (unknown) date) 95 96 unknown) (unknown) (no (unknown) (unknown) Pulse Oximetry 98 (units (unknown) date) unknown) (unknown) (no (unknown) (unknown) Pulse Oximetry (units (unknown) date) unknown) (unknown) (no (unknown) (unknown) Pulse Rate 130 H (units (unknown) date) 113 H unknown) (unknown) (no (unknown) (unknown) Pulse Rate 131 H (units (unknown) date) 132 H unknown) (unknown) (no (unknown) (unknown) Pulse Rate (units (unk nown) date) unknown) (unknown) (no (unknown) (unknown) RVR, patient (units (u nknown) date) refused and says unknown) that she understands the risks of leaving Against (unknown) (no (unknown) (unknown) Reason for (units (unk nown) date) consultation: gi unknown) bleed (unknown) (no (unknown) (unknown) Referral to: (units (u nknown) date) (Schedule) unknown) Timeframe: 1 Day (unknown) (no (unknown) (unknown) Respiratory Rate (units (unknown) date) 21 22 unknown) (unknown) (no (unknown) (unknown) Respiratory Rate (units (unknown) date) unknown) (unknown) (no (unknown) (unknown) Restless leg (units (u nknown) date) syndrome unknown) (unknown) (no (unknown) (unknown) Result Diagrams: (units (unknown) date) unknown) (unknown) (no (unknown) (unknown) Right-sided low (units (unknown) date) back pain with unknown) sciatica (unknown) (no (unknown) (unknown) Rx Instructions: (units (unknown) date) unknown) (unknown) (no (unknown) (unknown) SaO2/FiO2 Ratio (units (unknown) date) 235 unknown) (unknown) (no (unknown) (unknown) Signed By: (units (unk nown) date) unknown) (unknown) (no (unknown) (unknown) Smoking Status: (units (unknown) date) Current every day unknown) smoker (unknown) (no (unknown) (unknown) Social History (units (unknown) date) (Reviewed 01/21/22 unknown) @ 15:14 by Lilian Armstrong DO) (unknown) (no (unknown) (unknown) Spiriva with (units (u nknown) date) HandiHaler 18 mcg unknown) capsule, w/inhalation device (unknown) (no (unknown) (unknown) Staph skin (units (unk nown) date) infection unknown) (unknown) (no (unknown) (unknown) Summary (units (unkno wn) date) unknown) (unknown) (no (unknown) (unknown) Surgical History (units (unknown) date) (Reviewed 01/23/22 unknown) @ 10:31 by Anne-Marie Clancy MD) (unknown) (no (unknown) (unknown) Tachycardia (units (un known) date) unknown) (unknown) (no (unknown) (unknown) This is a (units (unkn own) date) 56-year-old female unknown) with history of pulmonary hypertension, COPD, CHF, (unknown) (no (unknown) (unknown) Benito (units (u nknown) date) MD [facility] unknown) (unknown) (no (unknown) (unknown) Vital Signs (units (un known) date) unknown) (unknown) (no (unknown) (unknown) Xarelto 20 mg (units ( unknown) date) tablet unknown) (unknown) (no (unknown) (unknown) [Embedded Image (units (unknown) date) Not Available] unknown) (unknown) (no (unknown) (unknown) after the (units (unkn own) date) procedure. unknown) (unknown) (no (unknown) (unknown) albuterol sulfate (units (unknown) date) [Ventolin HFA] 90 unknown) mcg/actuation HFA aerosol inhaler (unknown) (no (unknown) (unknown) alcohol intake: (units (unknown) date) current unknown) (unknown) (no (unknown) (unknown) amlodipine 5 mg (units (unknown) date) tablet unknown) (unknown) (no (unknown) (unknown) atrial (units (unkno wn) date) fibrillation on unknown) Xarelto with complaint of coffee-ground emesis and (unknown) (no (unknown) (unknown) be monitored in (units (unknown) date) ICU for initial unknown) recovery, surgery been consulted to help with (unknown) (no (unknown) (unknown) breath.? She had (units (unknown) date) nausea and unknown) vomiting she states she is thrown up 5 times since (unknown) (no (unknown) (unknown) clobetasol 0.05 % (units (unknown) date) solution unknown) (unknown) (no (unknown) (unknown) complete (units (unkno wn) date) hysterectomy, she unknown) is supposed to be seen for EGD and colonoscopy.? She (unknown) (no (unknown) (unknown) complete the (units (u nknown) date) procedure because unknown) of significant hypoxia during the procedure (unknown) (no (unknown) (unknown) concern for (units (un known) date) life-threatening unknown) event given poorly controlled heart rate (unknown) (no (unknown) (unknown) continued to have (units (unknown) date) AFib RVR and unknown) hypotensive episodes during this hospitalization. (unknown) (no (unknown) (unknown) digoxin 250 mcg (units (unknown) date) (0.25 mg) tablet unknown) (unknown) (no (unknown) (unknown) does still smoke, (units (unknown) date) she drinks 2-3 unknown) white claws daily, no illicit.? She is been (unknown) (no (unknown) (unknown) exacerbation (units (u nknown) date) unknown) (unknown) (no (unknown) (unknown) extensive (units (unkno wn) date) counseling with unknown) caution patient did agree to go for EGD, but unable to (unknown) (no (unknown) (unknown) generalized (units (un known) date) weakness when I unknown) saw her, some abdominal discomfort but in general (unknown) (no (unknown) (unknown) has resolved when (units (unknown) date) she is not unknown) exerting herself as well as feels actively short of (unknown) (no (unknown) (unknown) household (units (unkn own) date) members: friend(s) unknown) (unknown) (no (unknown) (unknown) initiation, (units (un known) date) anesthesia and unknown) surgery worried about her becoming a vent dependent (unknown) (no (unknown) (unknown) leaving AMA and (units (unknown) date) refusing unknown) prescribed treatment. Pt stated 'I understand. I'm (unknown) (no (unknown) (unknown) leaving.' AMA (units ( unknown) date) signed and placed unknown) in patient's chart. (unknown) (no (unknown) (unknown) melanotic stools (units (unknown) date) since Wednesday or unknown) Wednesday the 18 of January.? Patient also notes (unknown) (no (unknown) (unknown) metoprolol (units (unk nown) date) succinate 50 mg unknown) tablet extended release 24 hr (unknown) (no (unknown) (unknown) metoprolol (units (unk nown) date) tartrate unknown) [Lopressor] 50 mg tablet (unknown) (no (unknown) (unknown) multiple (units (unkno wn) date) transfusions with unknown) a clear history of black-colored stools and (unknown) (no (unknown) (unknown) not felt well she (units (unknown) date) is felt unknown) increasingly fatigued lightheaded like she is going to (unknown) (no (unknown) (unknown) obesity (units (unkno wn) date) hypoventilatory unknown) syndrome (unknown) (no (unknown) (unknown) pass out she has (units (unknown) date) not had actual unknown) syncope, she has had some chest pressure which (unknown) (no (unknown) (unknown) patient left (units (u nknown) date) Against Medical unknown) Advice (unknown) (no (unknown) (unknown) pramipexole (units (un known) date) [Mirapex] 0.25 mg unknown) tablet (unknown) (no (unknown) (unknown) prescriptions (units ( unknown) date) also. A very unknown) high-risk situation (unknown) (no (unknown) (unknown) puncture 1 cap (units (unknown) date) using device; one unknown) dose = 2 inhalations (unknown) (no (unknown) (unknown) quit status: has (units (unknown) date) quit before unknown) (unknown) (no (unknown) (unknown) secondary to (units (u nknown) date) NSAID use -patient unknown) did not tolerate endoscopy (unknown) (no (unknown) (unknown) seems to be (units (un known) date) comfortable. unknown) (unknown) (no (unknown) (unknown) setting of (units (unk nown) date) bleeding. unknown) (unknown) (no (unknown) (unknown) she was having (units (unknown) date) episodes at least unknown) a couple weeks ago.? Patient has noted she has (unknown) (no (unknown) (unknown) significant abuse (units (unknown) date) of NSAIDs almost 2 unknown) g of Motrin a day along with ongoing (unknown) (no (unknown) (unknown) since Wednesday.? (units (unknown) date) Patient denies any unknown) swelling of extremities.? She is had a prior (unknown) (no (unknown) (unknown) situation and (units ( unknown) date) Cardiology unknown) recommendations for starting her on digoxin for AFib (unknown) (no (unknown) (unknown) smoking (units (unkno wn) date) anticoagulation on unknown) board. Patient was transferred to ICU as she (unknown) (no (unknown) (unknown) spironolactone 25 (units (unknown) date) mg tablet unknown) (unknown) (no (unknown) (unknown) taking ibuprofen (units (unknown) date) 8 tablets of 200 unknown) mg ibuprofen. Patient continues to have some (unknown) (no (unknown) (unknown) the endoscopy. (units (unknown) date) Patient initially unknown) refused to go to the procedure, but after (unknown) (no (unknown) (unknown) tolterodine (units (un known) date) [Detrol LA] 2 mg unknown) capsule,extended release 24hr (unknown) (no (unknown) (unknown) with minimal (units (u nknown) date) exertion unknown) Result panel 81 (unknown) (no (unknown) (unknown) (no value) (units (unk nown) date) unknown) (unknown) (no (unknown) (unknown) (past 8 hours): (units (unknown) date) unknown) (unknown) (no (unknown) (unknown) 0.25 mg PO (units (unk nown) date) BEDTIME Qty: 90 unknown) 1RF (unknown) (no (unknown) (unknown) 05:00 01/25/22 (units (unknown) date) unknown) (unknown) (no (unknown) (unknown) 08:00 01/25/22 (units (unknown) date) unknown) (unknown) (no (unknown) (unknown) 09:00 01/25/22 (units (unknown) date) unknown) (unknown) (no (unknown) (unknown) 09:00 (units (unkno wn) date) unknown) (unknown) (no (unknown) (unknown) 1 applic topical (units (unknown) date) BEDTIME Qty: 25 unknown) 0RF (unknown) (no (unknown) (unknown) 1 cap inhalation (units (unknown) date) DAILY Qty: 90 1RF unknown) (unknown) (no (unknown) (unknown) 1 puff INHALATION (units (unknown) date) Q6H PRN (Reason: unknown) shortness of breath or wheezing) Qty: 18 (unknown) (no (unknown) (unknown) 01/21/22 16:06 (units (unknown) date) unknown) (unknown) (no (unknown) (unknown) 01/21/22 16:17 (units (unknown) date) unknown) (unknown) (no (unknown) (unknown) 01/24/22 04:54 (units (unknown) date) unknown) (unknown) (no (unknown) (unknown) 01/24/22 14:42 (units (unknown) date) unknown) (unknown) (no (unknown) (unknown) 01/24/22 (units (unkno wn) date) unknown) (unknown) (no (unknown) (unknown) 01/25/22 1919 (units ( unknown) date) unknown) (unknown) (no (unknown) (unknown) 01/25/22 (units (unkno wn) date) unknown) (unknown) (no (unknown) (unknown) 10:15 01/25/22 (units (unknown) date) unknown) (unknown) (no (unknown) (unknown) 11:30 (units (unkno wn) date) unknown) (unknown) (no (unknown) (unknown) 11:31 (units (unkno wn) date) unknown) (unknown) (no (unknown) (unknown) 19:05 (units (unkno wn) date) unknown) (unknown) (no (unknown) (unknown) 2 mg PO BEDTIME (units (unknown) date) Qty: 90 1RF unknown) (unknown) (no (unknown) (unknown) 2 puff inhalation (units (unknown) date) Q8H Qty: 12.9 2RF unknown) (unknown) (no (unknown) (unknown) 20 mg PO DAILY (units (unknown) date) unknown) (unknown) (no (unknown) (unknown) 25 mg PO DAILY (units (unknown) date) unknown) (unknown) (no (unknown) (unknown) 250 mcg PO DAILY (units (unknown) date) Qty: 7 0RF unknown) (unknown) (no (unknown) (unknown) 5 mg PO BID (units (un known) date) unknown) (unknown) (no (unknown) (unknown) 50 mg PO BID Qty: (units (unknown) date) 180 1RF unknown) (unknown) (no (unknown) (unknown) 50 mg PO TID 30 (units (unknown) date) Days Qty: 90 0RF unknown) (unknown) (no (unknown) (unknown) [id number] (units (unkno wn) date) unknown) (unknown) (no (unknown) (unknown) 5RF (units (unkno wn) date) unknown) (unknown) (no (unknown) (unknown) ABG Base Excess (units (unknown) date) 11.0 H unknown) (unknown) (no (unknown) (unknown) ABG HCO3 34 H (units ( unknown) date) unknown) (unknown) (no (unknown) (unknown) ABG O2 Saturation (units (unknown) date) 92 L unknown) (unknown) (no (unknown) (unknown) ABG Total CO2 35 (units (unknown) date) H unknown) (unknown) (no (unknown) (unknown) ABG pCO2 44.3 (units ( unknown) date) unknown) (unknown) (no (unknown) (unknown) ABG pH 7.49 H (units ( unknown) date) unknown) (unknown) (no (unknown) (unknown) ABG pO2 58 L (units (u nknown) date) unknown) (unknown) (no (unknown) (unknown) AFib with RVR, (units (unknown) date) rate controlled unknown) not achieved, cardiology recommended digoxin, (unknown) (no (unknown) (unknown) Abdominal pain (units (unknown) date) unknown) (unknown) (no (unknown) (unknown) Acute respiratory (units (unknown) date) failure with unknown) Hypoxia most likely secondary to COPD (unknown) (no (unknown) (unknown) Acute symptomatic (units (unknown) date) blood loss anemia unknown) most likely related to upper GI bleed (unknown) (no (unknown) (unknown) After blood (units (un known) date) transfusion unknown) patient vital signs stabilized. Patient continued to (unknown) (no (unknown) (unknown) Age/Sex: 56 / F (units (unknown) date) unknown) (unknown) (no (unknown) (unknown) Allergic (units (unkno wn) date) dermatitis of unknown) eyelids of both eyes (unknown) (no (unknown) (unknown) Anemia (units (unkno wn) date) unknown) (unknown) (no (unknown) (unknown) Apply twice week (units (unknown) date) unknown) (unknown) (no (unknown) (unknown) Arthritis (units (unkn own) date) (Unknown) unknown) (unknown) (no (unknown) (unknown) Assessment + Plan (units (unknown) date) narrative: unknown) (unknown) (no (unknown) (unknown) Assessment and (units (unknown) date) Plan unknown) (unknown) (no (unknown) (unknown) Assessment: (units (un known) date) unknown) (unknown) (no (unknown) (unknown) Asthma (Unknown) (units (unknown) date) unknown) (unknown) (no (unknown) (unknown) Asthma (units (unkno wn) date) unknown) (unknown) (no (unknown) (unknown) Atrovent HFA 17 (units (unknown) date) mcg/actuation HFA unknown) aerosol inhaler (unknown) (no (unknown) (unknown) Blood Pressure (units (unknown) date) 110/71 unknown) (unknown) (no (unknown) (unknown) Blood Pressure (units (unknown) date) 99/73 unknown) (unknown) (no (unknown) (unknown) COPD (chronic (units ( unknown) date) obstructive unknown) pulmonary disease) (unknown) (no (unknown) (unknown) COPD with mild (units (unknown) date) exacerbation unknown) -DuoNebs as needed, continuous pulse ox, O2 as (unknown) (no (unknown) (unknown) Carpal tunnel (units ( unknown) date) syndrome (-2016) unknown) (unknown) (no (unknown) (unknown) Chief complaint: (units (unknown) date) Coffee ground unknown) emesis, CHF, +thinners (unknown) (no (unknown) (unknown) Chronic atrial (units (unknown) date) fibrillation on unknown) anticoagulation - hold home anticoagulation in (unknown) (no (unknown) (unknown) Chronic atrial (units (unknown) date) fibrillation unknown) (unknown) (no (unknown) (unknown) Chronic hypoxic (units (unknown) date) respiratory unknown) failure with underlying pulmonary hypertension and (unknown) (no (unknown) (unknown) Cognitive/behavio (units (unknown) date) ral status at unknown) discharge: oriented (unknown) (no (unknown) (unknown) Comment: (units (unkno wn) date) unknown) (unknown) (no (unknown) (unknown) Consult to (units (unk nown) date) General Surgery unknown) Stat (unknown) (no (unknown) (unknown) Consult to (units (unk nown) date) Physical Therapy unknown) Evaluate + Treat (unknown) (no (unknown) (unknown) Consulting (units (unk nown) date) Provider: unknown) Anne-Marie Clancy (unknown) (no (unknown) (unknown) Consults: (units (unkn own) date) unknown) (unknown) (no (unknown) (unknown) Continued (units (unkn own) date) unknown) (unknown) (no (unknown) (unknown) Cor pulmonale (units ( unknown) date) (chronic) unknown) (unknown) (no (unknown) (unknown) : 1965 (units (unknown) date) Acct:[id number] unknown) (unknown) (no (unknown) (unknown) Date Patient (units (u nknown) date) Seen: 01/25/22 unknown) (unknown) (no (unknown) (unknown) Date of Service: (units (unknown) date) 01/21/22 unknown) (unknown) (no (unknown) (unknown) Date of (units (unkno wn) date) admission: unknown) (unknown) (no (unknown) (unknown) Discharge (units (unkn own) date) Assessment + Plan unknown) (unknown) (no (unknown) (unknown) Discharge Data (units (unknown) date) unknown) (unknown) (no (unknown) (unknown) Discharge Date: (units (unknown) date) 01/25/22 unknown) (unknown) (no (unknown) (unknown) Discharge (units (unkn own) date) Diagnosis: unknown) (unknown) (no (unknown) (unknown) Discharge Plan (units (unknown) date) unknown) (unknown) (no (unknown) (unknown) Discharge (units (unkn own) date) Providers unknown) (unknown) (no (unknown) (unknown) Discharge Summary (units (unknown) date) unknown) (unknown) (no (unknown) (unknown) Discharge orders (units (unknown) date) + Medications unknown) (unknown) (no (unknown) (unknown) Discharge (units (unkn own) date) provider: unknown) (unknown) (no (unknown) (unknown) Discontinued (units (u nknown) date) unknown) (unknown) (no (unknown) (unknown) Eczema (units (unkno wn) date) unknown) (unknown) (no (unknown) (unknown) Exam Narrative: (units (unknown) date) unknown) (unknown) (no (unknown) (unknown) Exam (units (unkno wn) date) unknown) (unknown) (no (unknown) (unknown) Family History (units (unknown) date) (Reviewed 01/23/22 unknown) @ 10:31 by Anne-Marie Clancy MD) (unknown) (no (unknown) (unknown) FiO2 21 (units (unkno wn) date) unknown) (unknown) (no (unknown) (unknown) Follow (units (unkno wn) date) up/Referrals: unknown) (unknown) (no (unknown) (unknown) Fraction of (units (un known) date) Inspired Oxygen 40 unknown) (unknown) (no (unknown) (unknown) Wednesday.? She has (units (unknown) date) had multiple lack unknown) stools that she describes as diarrhea like (unknown) (no (unknown) (unknown) Functional status (units (unknown) date) at discharge: unknown) independent ambulation (unknown) (no (unknown) (unknown) Has provider been (units (unknown) date) notified: Yes unknown) (unknown) (no (unknown) (unknown) History of (units (unk nown) date) Present Illness unknown) (unknown) (no (unknown) (unknown) History of (units (unk nown) date) hysterectomy for unknown) cancer (unknown) (no (unknown) (unknown) Hold (units (unkno wn) date) anticoagulation unknown) given active bleeding, SCDs for DVT prophylaxis, Protonix (unknown) (no (unknown) (unknown) Hospital Course (units (unknown) date) unknown) (unknown) (no (unknown) (unknown) Hospital Course: (units (unknown) date) unknown) (unknown) (no (unknown) (unknown) Hypokalemia - (units ( unknown) date) improving unknown) (unknown) (no (unknown) (unknown) Hypotension -most (units (unknown) date) likely secondary unknown) to hypovolemia due to GI bleed -continue (unknown) (no (unknown) (unknown) I requested (units (un known) date) Cardiology unknown) consult, discussed with on-call Cardiology on the phone, (unknown) (no (unknown) (unknown) IV for GI (units (unkn own) date) prophylaxis unknown) (unknown) (no (unknown) (unknown) Impetigo (units (unkno wn) date) unknown) (unknown) (no (unknown) (unknown) Incontinence (units (u nknown) date) unknown) (unknown) (no (unknown) (unknown) [facility] (units (unknown) date) [address] unknown) [place] [address] (unknown) (no (unknown) (unknown) Chung Mcdonald, (units (unknown) date) DO unknown) (unknown) (no (unknown) (unknown) Laboratory (units (unk nown) date) Results - last 24 unknown) hr (unknown) (no (unknown) (unknown) Labs (units (unkno wn) date) unknown) (unknown) (no (unknown) (unknown) Labs: (units (unkno wn) date) unknown) (unknown) (no (unknown) (unknown) Location: (units (unkn own) date) Determined by unknown) Patient (unknown) (no (unknown) (unknown) Medical Advice, (units (unknown) date) giving her oral unknown) digoxin and will discharge, we will provide (unknown) (no (unknown) (unknown) Medical History (units (unknown) date) (Reviewed 01/23/22 unknown) @ 10:31 by Anne-Marie Clancy MD) (unknown) (no (unknown) (unknown) Morbid obesity (units (unknown) date) due to excess unknown) calories (unknown) (no (unknown) (unknown) Mother (units (unknown) date) CVA (cerebral unknown) vascular accident) (unknown) (no (unknown) (unknown) Ms. Pabon was (units ( unknown) date) initially admitted unknown) to hospital for severe anemia requiring (unknown) (no (unknown) (unknown) Narrative (units (unkn own) date) unknown) (unknown) (no (unknown) (unknown) Narrative: (units (unk nown) date) unknown) (unknown) (no (unknown) (unknown) Need monitoring (units (unknown) date) of Renal functions unknown) and refill by Cardiology (unknown) (no (unknown) (unknown) New (units (unkno wn) date) unknown) (unknown) (no (unknown) (unknown) Nursing Discharge (units (unknown) date) Comment: MD and RN unknown) educated patient of risks in regards to (unknown) (no (unknown) (unknown) Obese, does seem (units (unknown) date) to be in distress unknown) when she is speaking full sentences or (unknown) (no (unknown) (unknown) 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 pulmonary hypertension -stable (unknown) (no (unknown) (unknown) Objective (units (unkn own) date) unknown) (unknown) (no (unknown) (unknown) Ordered By: (units (un known) date) Benito unknown) [place] (unknown) (no (unknown) (unknown) Other Ambulatory (units (unknown) date) Orders: unknown) (unknown) (no (unknown) (unknown) Overall status at (units (unknown) date) discharge: patient unknown) is not back to baseline (unknown) (no (unknown) (unknown) Oxygen Delivery (units (unknown) date) Method Room Air unknown) Room Air (unknown) (no (unknown) (unknown) Oxygen Delivery (units (unknown) date) Method Room Air unknown) (unknown) (no (unknown) (unknown) Oxygen Delivery (units (unknown) date) Method unknown) (unknown) (no (unknown) (unknown) Oxygen Flow Rate (units (unknown) date) 0 unknown) (unknown) (no (unknown) (unknown) Oxygen Flow Rate (units (unknown) date) unknown) (unknown) (no (unknown) (unknown) PFSH (units (unkno wn) date) unknown) (unknown) (no (unknown) (unknown) Patient (units (unkno wn) date) Disposition: Left unknown) Against Medical Advice (unknown) (no (unknown) (unknown) Patient is full (units (unknown) date) code unknown) (unknown) (no (unknown) (unknown) Patient is (units (unk nown) date) high-risk for unknown) readmission and still continues to be short of breath (unknown) (no (unknown) (unknown) Patient left (units (u nknown) date) Against Medical unknown) Advice even after significant counseling and (unknown) (no (unknown) (unknown) Patient needs a (units (unknown) date) very close unknown) follow-up with the Gastroenterology, Cardiology (unknown) (no (unknown) (unknown) Patient was (units (un known) date) started on digoxin unknown) which needs very close monitoring, renal (unknown) (no (unknown) (unknown) Patient: (units (unkno wn) date) Rosalba Pabon MR#: unknown) [id number] (unknown) (no (unknown) (unknown) Chung Mcdonald, (units (unknown) date) DO [Primary Care unknown) Provider] (unknown) (no (unknown) (unknown) Physician (units (unkn own) date) Instructions: unknown) Evaluate and Treat (unknown) (no (unknown) (unknown) Plan of (units (o wn) date) Treatment: unknown) (unknown) (no (unknown) (unknown) Prescriptions: (units (unknown) date) unknown) (unknown) (no (unknown) (unknown) Primary Care (units (u nknown) date) Provider: unknown) Chung Mcdonald (unknown) (no (unknown) (unknown) Primary care (units (u nknown) date) physician: unknown) (unknown) (no (unknown) (unknown) Provider (units (unkno wn) date) Discharge Comment: unknown) Discussed extensively regarding very high-risk (unknown) (no (unknown) (unknown) Provider (units (unkno wn) date) unknown) (unknown) (no (unknown) (unknown) Provider: (units (unkn own) date) Kurt Simon unknown) avila STEVENSON (unknown) (no (unknown) (unknown) Pulmonary (units (unkn own) date) hypertension unknown) (unknown) (no (unknown) (unknown) Pulse Oximetry 92 (units (unknown) date) 95 96 unknown) (unknown) (no (unknown) (unknown) Pulse Oximetry 98 (units (unknown) date) unknown) (unknown) (no (unknown) (unknown) Pulse Oximetry (units (unknown) date) unknown) (unknown) (no (unknown) (unknown) Pulse Rate 130 H (units (unknown) date) 113 H unknown) (unknown) (no (unknown) (unknown) Pulse Rate 131 H (units (unknown) date) 132 H unknown) (unknown) (no (unknown) (unknown) Pulse Rate (units (unk nown) date) unknown) (unknown) (no (unknown) (unknown) RVR, patient (units (u nknown) date) refused and says unknown) that she understands the risks of leaving Against (unknown) (no (unknown) (unknown) Reason for (units (unk nown) date) consultation: gi unknown) bleed (unknown) (no (unknown) (unknown) Referral to: (units (u nknown) date) (Schedule) unknown) Timeframe: 1 Day (unknown) (no (unknown) (unknown) Respiratory Rate (units (unknown) date) 21 22 unknown) (unknown) (no (unknown) (unknown) Respiratory Rate (units (unknown) date) unknown) (unknown) (no (unknown) (unknown) Restless leg (units (u nknown) date) syndrome unknown) (unknown) (no (unknown) (unknown) Result Diagrams: (units (unknown) date) unknown) (unknown) (no (unknown) (unknown) Right-sided low (units (unknown) date) back pain with unknown) sciatica (unknown) (no (unknown) (unknown) Rx Instructions: (units (unknown) date) unknown) (unknown) (no (unknown) (unknown) SaO2/FiO2 Ratio (units (unknown) date) 235 unknown) (unknown) (no (unknown) (unknown) Signed (units (unkno wn) date) By:<Electronically unknown) signed by Benito Simon MD> (unknown) (no (unknown) (unknown) Smoking Status: (units (unknown) date) Current every day unknown) smoker (unknown) (no (unknown) (unknown) Social History (units (unknown) date) (Reviewed 01/21/22 unknown) @ 15:14 by Lilian Armstrong DO) (unknown) (no (unknown) (unknown) Spiriva with (units (u nknown) date) HandiHaler 18 mcg unknown) capsule, w/inhalation device (unknown) (no (unknown) (unknown) Staph skin (units (unk nown) date) infection unknown) (unknown) (no (unknown) (unknown) Status at (units (unkn own) date) Discharge unknown) (unknown) (no (unknown) (unknown) Summary (units (unkno wn) date) unknown) (unknown) (no (unknown) (unknown) Surgical History (units (unknown) date) (Reviewed 01/23/22 unknown) @ 10:31 by Anne-Marie Clancy MD) (unknown) (no (unknown) (unknown) Tachycardia (units (un known) date) unknown) (unknown) (no (unknown) (unknown) This is a (units (unkn own) date) 56-year-old female unknown) with history of pulmonary hypertension, COPD, CHF, (unknown) (no (unknown) (unknown) Time Spent with (units (unknown) date) Patient unknown) (unknown) (no (unknown) (unknown) Time spent: (units (un known) date) Greater than 30 unknown) minutes (90 minutes in counseling calling patient (unknown) (no (unknown) (unknown) Unfortunately (units ( unknown) date) patient left unknown) Against Medical Advice -extensive counseling and (unknown) (no (unknown) (unknown) [place] (units (u nknown) date) MD [place] unknown) (unknown) (no (unknown) (unknown) Vital Signs (units (un known) date) unknown) (unknown) (no (unknown) (unknown) Xarelto 20 mg (units ( unknown) date) tablet unknown) (unknown) (no (unknown) (unknown) [Embedded Image (units (unknown) date) Not Available] unknown) (unknown) (no (unknown) (unknown) advice. Nursing (units (unknown) date) staff available at unknown) bedside during this conversation. (unknown) (no (unknown) (unknown) after the (units (unkn own) date) procedure. Patient unknown) slowly recovered after that with transfusion and (unknown) (no (unknown) (unknown) albuterol sulfate (units (unknown) date) [Ventolin HFA] 90 unknown) mcg/actuation HFA aerosol inhaler (unknown) (no (unknown) (unknown) alcohol intake: (units (unknown) date) current unknown) (unknown) (no (unknown) (unknown) also says 'if I (units (unknown) date) I but I unknown) know I will get better at home'. (unknown) (no (unknown) (unknown) ambulating. (units (un known) date) Tachycardia noted. unknown) She is very upset that she needs to stay in the (unknown) (no (unknown) (unknown) amlodipine 5 mg (units (unknown) date) tablet unknown) (unknown) (no (unknown) (unknown) atrial (units (unkno wn) date) fibrillation on unknown) Xarelto with complaint of coffee-ground emesis and (unknown) (no (unknown) (unknown) be monitored in (units (unknown) date) ICU for initial unknown) recovery, surgery been consulted to help with (unknown) (no (unknown) (unknown) better, but she (units (unknown) date) refuses to stay unknown) and says she is better at home and her anxiety (unknown) (no (unknown) (unknown) breath.? She had (units (unknown) date) nausea and unknown) vomiting she states she is thrown up 5 times since (unknown) (no (unknown) (unknown) calls and failed (units (unknown) date) to convince Ms. unknown) Cm to stay in the hospital. Her son (unknown) (no (unknown) (unknown) can do anything (units (unknown) date) to keep her in the unknown) hospital so that she can start feeling (unknown) (no (unknown) (unknown) clobetasol 0.05 % (units (unknown) date) solution unknown) (unknown) (no (unknown) (unknown) close follow up (units (unknown) date) with the unknown) Cardiology. Cardiology also recommended changing (unknown) (no (unknown) (unknown) close monitoring (units (unknown) date) unknown) (unknown) (no (unknown) (unknown) complete (units (unkno wn) date) hysterectomy, she unknown) is supposed to be seen for EGD and colonoscopy.? She (unknown) (no (unknown) (unknown) complete the (units (u nknown) date) procedure because unknown) of significant hypoxia during the procedure (unknown) (no (unknown) (unknown) concern for (units (un known) date) life-threatening unknown) event given poorly controlled heart rate (unknown) (no (unknown) (unknown) continued to have (units (unknown) date) AFib RVR and unknown) hypotensive episodes during this hospitalization. (unknown) (no (unknown) (unknown) continues to have (units (unknown) date) tachycardia and unknown) low blood pressures. After restarting (unknown) (no (unknown) (unknown) digoxin 250 mcg (units (unknown) date) (0.25 mg) tablet unknown) (unknown) (no (unknown) (unknown) does still smoke, (units (unknown) date) she drinks 2-3 unknown) white claws daily, no illicit.? She is been (unknown) (no (unknown) (unknown) exacerbation (units (u nknown) date) unknown) (unknown) (no (unknown) (unknown) extensive (units (unkno wn) date) counseling with unknown) caution patient did agree to go for EGD, but unable to (unknown) (no (unknown) (unknown) family, (units (unkno wn) date) discussions about unknown) safe discharge planning) (unknown) (no (unknown) (unknown) follow-up (units (unkn own) date) instructions unknown) provided to patient son and patient (unknown) (no (unknown) (unknown) functions (units (unkn own) date) unknown) (unknown) (no (unknown) (unknown) generalized (units (un known) date) weakness when I unknown) saw her, some abdominal discomfort but in general (unknown) (no (unknown) (unknown) has resolved when (units (unknown) date) she is not unknown) exerting herself as well as feels actively short of (unknown) (no (unknown) (unknown) hospital. She (units ( unknown) date) understands the unknown) risk of if she is leaving against medical (unknown) (no (unknown) (unknown) household (units (unkn own) date) members: friend(s) unknown) (unknown) (no (unknown) (unknown) initiation, (units (un known) date) anesthesia and unknown) surgery worried about her becoming a vent dependent (unknown) (no (unknown) (unknown) leaving AMA and (units (unknown) date) refusing unknown) prescribed treatment. Pt stated 'I understand. I'm (unknown) (no (unknown) (unknown) leaving.' AMA (units ( unknown) date) signed and placed unknown) in patient's chart. (unknown) (no (unknown) (unknown) melanotic stools (units (unknown) date) since Wednesday or unknown) Wednesday the 18 of January.? Patient also notes (unknown) (no (unknown) (unknown) metoprolol and (units (unknown) date) titrating up on unknown) 01/24 patient did show some progress. But (unknown) (no (unknown) (unknown) metoprolol (units (unk nown) date) long-acting to unknown) short-acting 50 with increased frequency per day (unknown) (no (unknown) (unknown) metoprolol (units (unk nown) date) succinate 50 mg unknown) tablet extended release 24 hr (unknown) (no (unknown) (unknown) metoprolol (units (unk nown) date) tartrate unknown) [Lopressor] 50 mg tablet (unknown) (no (unknown) (unknown) monitoring (units (unk nown) date) required given unknown) history of heart failure, surgery consulted, EGD in (unknown) (no (unknown) (unknown) multiple (units (unkno wn) date) transfusions with unknown) a clear history of black-colored stools and (unknown) (no (unknown) (unknown) not felt well she (units (unknown) date) is felt unknown) increasingly fatigued lightheaded like she is going to (unknown) (no (unknown) (unknown) obesity (units (unkno wn) date) hypoventilatory unknown) syndrome (unknown) (no (unknown) (unknown) oral 250 mcg (units (u nknown) date) given. I unknown) prescribed her medications anyway to take her and then (unknown) (no (unknown) (unknown) out IV. She did (units (unknown) date) not want to have a unknown) tele on her. After extensive counseling and (unknown) (no (unknown) (unknown) pass out she has (units (unknown) date) not had actual unknown) syncope, she has had some chest pressure which (unknown) (no (unknown) (unknown) patient continues (units (unknown) date) to have unknown) tachycardic episodes with AFib RVR on 01/25 morning. (unknown) (no (unknown) (unknown) patient left (units (u nknown) date) Against Medical unknown) Advice (unknown) (no (unknown) (unknown) pramipexole (units (un known) date) [Mirapex] 0.25 mg unknown) tablet (unknown) (no (unknown) (unknown) prescribed. I (units ( unknown) date) called son who is unknown) a truck driving and currently in [place] (unknown) (no (unknown) (unknown) prescriptions (units ( unknown) date) also. A very unknown) high-risk situation (unknown) (no (unknown) (unknown) puncture 1 cap (units (unknown) date) using device; one unknown) dose = 2 inhalations (unknown) (no (unknown) (unknown) quit status: has (units (unknown) date) quit before unknown) (unknown) (no (unknown) (unknown) recommended (units (un known) date) digoxin IV, but unknown) patient refused any further care. Patient pulled (unknown) (no (unknown) (unknown) required (units (unkno wn) date) unknown) (unknown) (no (unknown) (unknown) secondary to (units (u nknown) date) NSAID use -admit unknown) to ICU, close monitoring, 4 units of PRBC, close (unknown) (no (unknown) (unknown) secondary to (units (u nknown) date) NSAID use -patient unknown) did not tolerate endoscopy (unknown) (no (unknown) (unknown) seems to be (units (un known) date) comfortable. unknown) (unknown) (no (unknown) (unknown) setting of (units (unk nown) date) bleeding. unknown) (unknown) (no (unknown) (unknown) she was having (units (unknown) date) episodes at least unknown) a couple weeks ago.? Patient has noted she has (unknown) (no (unknown) (unknown) significant abuse (units (unknown) date) of NSAIDs almost 2 unknown) g of Motrin a day along with ongoing (unknown) (no (unknown) (unknown) significant amount (units (unknown) date) of time at unknown) bedside, patient continues to refuse care, digoxin (unknown) (no (unknown) (unknown) since Wednesday.? (units (unknown) date) Patient denies any unknown) swelling of extremities.? She is had a prior (unknown) (no (unknown) (unknown) situation and (units ( unknown) date) Cardiology unknown) recommendations for starting her on digoxin for AFib (unknown) (no (unknown) (unknown) smoking (units (unkno wn) date) anticoagulation on unknown) board. Patient was transferred to ICU as she (unknown) (no (unknown) (unknown) spironolactone 25 (units (unknown) date) mg tablet unknown) (unknown) (no (unknown) (unknown) taking ibuprofen (units (unknown) date) 8 tablets of 200 unknown) mg ibuprofen. Patient continues to have some (unknown) (no (unknown) (unknown) the endoscopy. (units (unknown) date) Patient initially unknown) refused to go to the procedure, but after (unknown) (no (unknown) (unknown) the morning, (units (u nknown) date) continues H+H unknown) monitoring. (unknown) (no (unknown) (unknown) to help convince (units (unknown) date) the patient to unknown) stay in the hospital, he tried multiple phone (unknown) (no (unknown) (unknown) tolterodine (units (un known) date) [Detrol LA] 2 mg unknown) capsule,extended release 24hr (unknown) (no (unknown) (unknown) understands (units (un known) date) clearly the risk unknown) of patient going home. I asked the patient if we (unknown) (no (unknown) (unknown) will be much (units (u nknown) date) improved and her unknown) heart rate will be automatically controlled. She (unknown) (no (unknown) (unknown) with minimal (units (u nknown) date) exertion unknown) Result panel 82 (unknown) (no (unknown) (unknown) (no value) (units (unk nown) date) unknown) (unknown) (no (unknown) (unknown) 02/05/22 (units (unkno wn) date) unknown) (unknown) (no (unknown) (unknown) [id number] (units (unkno wn) date) unknown) (unknown) (no (unknown) (unknown) Abdominal pain (units (unknown) date) unknown) (unknown) (no (unknown) (unknown) Age/Sex: 56 / F (units (unknown) date) Date of Service: unknown) (unknown) (no (unknown) (unknown) Allergic (units (unkno wn) date) dermatitis of unknown) eyelids of both eyes (unknown) (no (unknown) (unknown) Allergies (units (unkn own) date) unknown) (unknown) (no (unknown) (unknown) [place], [place] (units ( unknown) date) [id number] unknown) (unknown) (no (unknown) (unknown) Anemia (units (unkno wn) date) unknown) (unknown) (no (unknown) (unknown) Arthritis (units (unkn own) date) (Unknown) unknown) (unknown) (no (unknown) (unknown) Asthma (Unknown) (units (unknown) date) unknown) (unknown) (no (unknown) (unknown) Asthma (units (unkno wn) date) unknown) (unknown) (no (unknown) (unknown) Attending Dr: (units ( unknown) date) Chung Mcdonald unknown) D.O. (unknown) (no (unknown) (unknown) COPD (chronic (units ( unknown) date) obstructive unknown) pulmonary disease) (unknown) (no (unknown) (unknown) Carpal tunnel (units ( unknown) date) syndrome (-2017) unknown) (unknown) (no (unknown) (unknown) Chronic atrial (units (unknown) date) fibrillation unknown) (unknown) (no (unknown) (unknown) Cor pulmonale (units ( unknown) date) (chronic) unknown) (unknown) (no (unknown) (unknown) : 1965 (units (unknown) date) Acct:[id number] unknown) (unknown) (no (unknown) (unknown) Dept at (units (unkno wn) date) . unknown) (unknown) (no (unknown) (unknown) Documented By: (units (unknown) date) Chung Mcdonald unknown) D.O. 02/05/22 1414 (unknown) (no (unknown) (unknown) Draft (units (unkno wn) date) unknown) (unknown) (no (unknown) (unknown) Eczema (units (unkno wn) date) unknown) (unknown) (no (unknown) (unknown) Family History (units (unknown) date) (Reviewed unknown) 01/23/22 @ 10:31 by Anne-Marie Clancy MD) (unknown) (no (unknown) (unknown) Family Practice (units (unknown) date) Office Visit unknown) (unknown) (no (unknown) (unknown) [facility]) (unknown) (no (unknown) (unknown) History of (units (unk nown) date) hysterectomy for unknown) cancer (unknown) (no (unknown) (unknown) Impetigo (units (unkno wn) date) unknown) (unknown) (no (unknown) (unknown) Incontinence (units (u nknown) date) unknown) (unknown) (no (unknown) (unknown) Intake (units (unkno wn) date) unknown) (unknown) (no (unknown) (unknown) Last Menstural (units (unknown) date) Cycle + Details unknown) (unknown) (no (unknown) (unknown) Loc: [facility] (units (unkno wn) date) unknown) (unknown) (no (unknown) (unknown) Medical History (units (unknown) date) (Reviewed unknown) 01/23/22 @ 10:31 by Anne-Marie Clancy MD) (unknown) (no (unknown) (unknown) Morbid obesity (units (unknown) date) due to excess unknown) calories (unknown) (no (unknown) (unknown) Mother (units (unknown) date) CVA (cerebral unknown) vascular accident) (unknown) (no (unknown) (unknown) Other Menstrual (units (unknown) date) Period: unknown) Postmenopausal (unknown) (no (unknown) (unknown) PFSH (units (unkno wn) date) unknown) (unknown) (no (unknown) (unknown) Patient: (units (unkno wn) date) Rosalba Pabon unknown) MR#: [id number] (unknown) (no (unknown) (unknown) Pulmonary (units (unkn own) date) hypertension unknown) (unknown) (no (unknown) (unknown) Reason For Visit (units (unknown) date) unknown) (unknown) (no (unknown) (unknown) Restless leg (units (u nknown) date) syndrome unknown) (unknown) (no (unknown) (unknown) Right-sided low (units (unknown) date) back pain with unknown) sciatica (unknown) (no (unknown) (unknown) Signed By: (units (unk nown) date) unknown) (unknown) (no (unknown) (unknown) Smoking Status: (units (unknown) date) Current every day unknown) smoker (unknown) (no (unknown) (unknown) Social History (units (unknown) date) unknown) (unknown) (no (unknown) (unknown) Staph skin (units (unk nown) date) infection unknown) (unknown) (no (unknown) (unknown) Surgical History (units (unknown) date) (Reviewed unknown) 01/23/22 @ 10:31 by Anne-Marie Clancy MD) (unknown) (no (unknown) (unknown) Tachycardia (units (un known) date) unknown) (unknown) (no (unknown) (unknown) This note may (units ( unknown) date) have been all or unknown) partially generated using voice recognition (unknown) (no (unknown) (unknown) Tobacco + (units (unkn own) date) Substance Use unknown) (unknown) (no (unknown) (unknown) Tobacco Status (units (unknown) date) unknown) (unknown) (no (unknown) (unknown) Visit Reasons: (units (unknown) date) GI bleed, afib, unknown) left AMA 10 (unknown) (no (unknown) (unknown) alcohol intake: (units (unknown) date) current unknown) (unknown) (no (unknown) (unknown) grass pollen (units (u nknown) date) Allergy (Verified unknown) 01/23/22 10:11) (unknown) (no (unknown) (unknown) have occurred. (units (unknown) date) If there are any unknown) questions, please contact the Medical Records (unknown) (no (unknown) (unknown) household (units (unkn own) date) members: unknown) friend(s) (unknown) (no (unknown) (unknown) lavender (units (unkno wn) date) (Lavandula unknown) angustifolia) Allergy (Verified 01/23/22 10:11) (unknown) (no (unknown) (unknown) may occur. (units (unk nown) date) Occasional unknown) wrong-word or 'sound-alike' substitutions may have (unknown) (no (unknown) (unknown) mometasone (units (unk nown) date) furoate [From unknown) NASONEX] Allergy (Unknown, Verified 01/23/22 10:11) (unknown) (no (unknown) (unknown) occurred due to (units (unknown) date) the inherent unknown) limitations of voice recognition software. Please (unknown) (no (unknown) (unknown) pine tanya Allergy (units (unknown) date) (Severe, Uncoded unknown) 01/23/22 10:11) (unknown) (no (unknown) (unknown) quit status: has (units (unknown) date) quit before unknown) (unknown) (no (unknown) (unknown) read the note (units ( unknown) date) carefully and unknown) recognize, using context, where these substitutions (unknown) (no (unknown) (unknown) severe sinus (units (u nknown) date) congestion unknown) (unknown) (no (unknown) (unknown) sinus swelling, (units (unknown) date) trouble breathing unknown) (unknown) (no (unknown) (unknown) software. 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 (unknown) (no (unknown) (unknown) throat closes, (units (unknown) date) cannot breathe unknown) Result panel 83 (unknown) (no (unknown) (unknown) (no value) (units (unk nown) date) unknown) (unknown) (no (unknown) (unknown) 01/25/22 [Rx (units (u nknown) date) Confirmed unknown) 02/05/22] (unknown) (no (unknown) (unknown) 02/05/22 (units (unkno wn) date) unknown) (unknown) (no (unknown) (unknown) 02/05/22] (units (unkn own) date) unknown) (unknown) (no (unknown) (unknown) [id number] (units (unkno wn) date) unknown) (unknown) (no (unknown) (unknown) 56 yo female (units (u nknown) date) presents today unknown) with several concerns. GI bleed, problem sleeping, (unknown) (no (unknown) (unknown) Abdominal pain (units (unknown) date) unknown) (unknown) (no (unknown) (unknown) Accompanied by: (units (unknown) date) Son unknown) (unknown) (no (unknown) (unknown) Age/Sex: 56 / F (units (unknown) date) Date of Service: unknown) (unknown) (no (unknown) (unknown) Allergic (units (unkno wn) date) dermatitis of unknown) eyelids of both eyes (unknown) (no (unknown) (unknown) Allergies (units (unkn own) date) unknown) (unknown) (no (unknown) (unknown) [place], [place] (units ( unknown) date) [id number] unknown) (unknown) (no (unknown) (unknown) Anemia (units (unkno wn) date) unknown) (unknown) (no (unknown) (unknown) Arthritis (units (unkn own) date) (Unknown) unknown) (unknown) (no (unknown) (unknown) Asthma (Unknown) (units (unknown) date) unknown) (unknown) (no (unknown) (unknown) Asthma (units (unkno wn) date) unknown) (unknown) (no (unknown) (unknown) Attending Dr: (units ( unknown) date) Chung Mcdonald unknown) D.O. (unknown) (no (unknown) (unknown) COPD (chronic (units ( unknown) date) obstructive unknown) pulmonary disease) (unknown) (no (unknown) (unknown) Carpal tunnel (units ( unknown) date) syndrome (-2017) unknown) (unknown) (no (unknown) (unknown) Chronic atrial (units (unknown) date) fibrillation unknown) (unknown) (no (unknown) (unknown) Confirmed (units (unkn own) date) 02/05/22] unknown) (unknown) (no (unknown) (unknown) Cor pulmonale (units ( unknown) date) (chronic) unknown) (unknown) (no (unknown) (unknown) : 1965 (units (unknown) date) Acct:[id number] unknown) (unknown) (no (unknown) (unknown) Dept at (units (unkno wn) date) . unknown) (unknown) (no (unknown) (unknown) Documented By: (units (unknown) date) Chung Mcdonald unknown) D.O. 02/05/22 1414 (unknown) (no (unknown) (unknown) Draft (units (unkno wn) date) unknown) (unknown) (no (unknown) (unknown) Eczema (units (unkno wn) date) unknown) (unknown) (no (unknown) (unknown) Family History (units (unknown) date) (Reviewed unknown) 01/23/22 @ 10:31 by Anne-Marie Clancy MD) (unknown) (no (unknown) (unknown) Family Practice (units (unknown) date) Office Visit unknown) (unknown) (no (unknown) (unknown) [facility]) (unknown) (no (unknown) (unknown) HandiHaler) 1 (units ( unknown) date) cap inhalation unknown) DAILY #90 inhalations 10/28/20 [Rx Confirmed (unknown) (no (unknown) (unknown) History of (units (unk nown) date) hysterectomy for unknown) cancer (unknown) (no (unknown) (unknown) Impetigo (units (unkno wn) date) unknown) (unknown) (no (unknown) (unknown) Incontinence (units (u nknown) date) unknown) (unknown) (no (unknown) (unknown) Intake Note: (units (u nknown) date) unknown) (unknown) (no (unknown) (unknown) Intake performed (units (unknown) date) by: Mercedes Murry unknown) (unknown) (no (unknown) (unknown) Intake (units (unkno wn) date) unknown) (unknown) (no (unknown) (unknown) Intake- Clincial (units (unknown) date) Staff unknown) (unknown) (no (unknown) (unknown) Last Menstural (units (unknown) date) Cycle + Details unknown) (unknown) (no (unknown) (unknown) Loc: [facility] (units (unkno wn) date) unknown) (unknown) (no (unknown) (unknown) Medical History (units (unknown) date) (Reviewed unknown) 01/23/22 @ 10:31 by Anne-Marie Clancy MD) (unknown) (no (unknown) (unknown) Medications (units (un known) date) unknown) (unknown) (no (unknown) (unknown) Morbid obesity (units (unknown) date) due to excess unknown) calories (unknown) (no (unknown) (unknown) Mother (units (unknown) date) CVA (cerebral unknown) vascular accident) (unknown) (no (unknown) (unknown) Other Menstrual (units (unknown) date) Period: unknown) Postmenopausal (unknown) (no (unknown) (unknown) PFSH (units (unkno wn) date) unknown) (unknown) (no (unknown) (unknown) Patient: (units (unkno wn) date) Rosalba Pabon unknown) MR#: [id number] (unknown) (no (unknown) (unknown) Pulmonary (units (unkn own) date) hypertension unknown) (unknown) (no (unknown) (unknown) Reason For Visit (units (unknown) date) unknown) (unknown) (no (unknown) (unknown) Restless leg (units (u nknown) date) syndrome unknown) (unknown) (no (unknown) (unknown) Right-sided low (units (unknown) date) back pain with unknown) sciatica (unknown) (no (unknown) (unknown) Signed By: (units (unk nown) date) unknown) (unknown) (no (unknown) (unknown) Smoking Status: (units (unknown) date) Current every day unknown) smoker (unknown) (no (unknown) (unknown) Social History (units (unknown) date) unknown) (unknown) (no (unknown) (unknown) Staph skin (units (unk nown) date) infection unknown) (unknown) (no (unknown) (unknown) Surgical History (units (unknown) date) (Reviewed unknown) 01/23/22 @ 10:31 by Anne-Marie Clancy MD) (unknown) (no (unknown) (unknown) Tachycardia (units (un known) date) unknown) (unknown) (no (unknown) (unknown) This note may (units ( unknown) date) have been all or unknown) partially generated using voice recognition (unknown) (no (unknown) (unknown) Tobacco + (units (unkn own) date) Substance Use unknown) (unknown) (no (unknown) (unknown) Tobacco Status (units (unknown) date) unknown) (unknown) (no (unknown) (unknown) Visit Reasons: (units (unknown) date) GI bleed, afib, unknown) left AMA 10 (unknown) (no (unknown) (unknown) alcohol intake: (units (unknown) date) current unknown) (unknown) (no (unknown) (unknown) caps 01/02/22 (units ( unknown) date) [Rx Confirmed unknown) 02/05/22] (unknown) (no (unknown) (unknown) clobetasol 0.05 (units (unknown) date) % scalp solution unknown) 1 applic topical BEDTIME #25 mL 03/03/21 [Rx (unknown) (no (unknown) (unknown) concerns that (units ( unknown) date) were told to MA unknown) (unknown) (no (unknown) (unknown) digoxin 250 mcg (units (unknown) date) (0.25 mg) tablet unknown) 250 mcg PO DAILY #7 tabs 01/25/22 [Rx Confirmed (unknown) (no (unknown) (unknown) grass pollen (units (u nknown) date) Allergy (Verified unknown) 02/05/22 14:16) (unknown) (no (unknown) (unknown) have occurred. (units (unknown) date) If there are any unknown) questions, please contact the Medical Records (unknown) (no (unknown) (unknown) household (units (unkn own) date) members: unknown) friend(s) (unknown) (no (unknown) (unknown) inhalation Q8H (units (unknown) date) #12.9 grams unknown) 01/25/22 [Rx Confirmed 02/05/22] (unknown) (no (unknown) (unknown) ipratropium (units (un known) date) bromide 17 unknown) mcg/actuation HFA aerosol inhaler (Atrovent HFA) 2 puff (unknown) (no (unknown) (unknown) lavender (units (unkno wn) date) (Lavandula unknown) angustifolia) Allergy (Verified 02/05/22 14:16) (unknown) (no (unknown) (unknown) may occur. (units (unk nown) date) Occasional unknown) wrong-word or 'sound-alike' substitutions may have (unknown) (no (unknown) (unknown) metoprolol (units (unk nown) date) tartrate 50 mg unknown) tablet (Lopressor) 50 mg PO TID 30 days #90 tabs (unknown) (no (unknown) (unknown) mometasone (units (unk nown) date) furoate [From unknown) NASONEX] Allergy (Unknown, Verified 02/05/22 14:16) (unknown) (no (unknown) (unknown) occurred due to (units (unknown) date) the inherent unknown) limitations of voice recognition software. Please (unknown) (no (unknown) (unknown) pine tanya Allergy (units (unknown) date) (Severe, Uncoded unknown) 02/05/22 14:16) (unknown) (no (unknown) (unknown) quit status: has (units (unknown) date) quit before unknown) (unknown) (no (unknown) (unknown) read the note (units ( unknown) date) carefully and unknown) recognize, using context, where these substitutions (unknown) (no (unknown) (unknown) severe sinus (units (u nknown) date) congestion unknown) (unknown) (no (unknown) (unknown) sinus swelling, (units (unknown) date) trouble breathing unknown) (unknown) (no (unknown) (unknown) software. 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 (unknown) (no (unknown) (unknown) spironolactone 25 (units (unknown) date) mg tablet 25 mg unknown) PO DAILY 03/03/21 [History Confirmed 02/05/22] (unknown) (no (unknown) (unknown) throat closes, (units (unknown) date) cannot breathe unknown) (unknown) (no (unknown) (unknown) tiotropium (units (unk nown) date) bromide 18 mcg unknown) capsule with inhalation device (Spiriva with (unknown) (no (unknown) (unknown) tolterodine 2 mg (units (unknown) date) capsule,extended unknown) release 24 hr (Detrol LA) 2 mg PO BEDTIME #90 (unknown) (no (unknown) (unknown) waking up in a (units (unknown) date) panic, out of unknown) breath and having problem sleeping are some Result panel 84 (unknown) (no (unknown) (unknown) (no value) (units (unk nown) date) unknown) (unknown) (no (unknown) (unknown) 01/25/22 [Rx (units (u nknown) date) Confirmed unknown) 02/05/22] (unknown) (no (unknown) (unknown) 02/05/22 (units (unkno wn) date) unknown) (unknown) (no (unknown) (unknown) 02/05/22] (units (unkn own) date) unknown) (unknown) (no (unknown) (unknown) [id number] (units (unkno wn) date) unknown) (unknown) (no (unknown) (unknown) 56 yo female (units (u nknown) date) presents today unknown) with several concerns. GI bleed, problem sleeping, (unknown) (no (unknown) (unknown) Abdominal pain (units (unknown) date) unknown) (unknown) (no (unknown) (unknown) Accompanied by: (units (unknown) date) Son unknown) (unknown) (no (unknown) (unknown) Age/Sex: 56 / F (units (unknown) date) Date of Service: unknown) (unknown) (no (unknown) (unknown) Allergic (units (unkno wn) date) dermatitis of unknown) eyelids of both eyes (unknown) (no (unknown) (unknown) Allergies (units (unkn own) date) unknown) (unknown) (no (unknown) (unknown) [place], [place] (units ( unknown) date) [id number] unknown) (unknown) (no (unknown) (unknown) Anemia (units (unkno wn) date) unknown) (unknown) (no (unknown) (unknown) Arthritis (units (unkn own) date) (Unknown) unknown) (unknown) (no (unknown) (unknown) Asthma (Unknown) (units (unknown) date) unknown) (unknown) (no (unknown) (unknown) Asthma (units (unkno wn) date) unknown) (unknown) (no (unknown) (unknown) Attending Dr: (units ( unknown) date) Chung Mcdonald unknown) D.O. (unknown) (no (unknown) (unknown) COPD (chronic (units ( unknown) date) obstructive unknown) pulmonary disease) (unknown) (no (unknown) (unknown) Carpal tunnel (units ( unknown) date) syndrome (-2017) unknown) (unknown) (no (unknown) (unknown) Chronic atrial (units (unknown) date) fibrillation unknown) (unknown) (no (unknown) (unknown) Confirmed (units (unkn own) date) 02/05/22] unknown) (unknown) (no (unknown) (unknown) Cor pulmonale (units ( unknown) date) (chronic) unknown) (unknown) (no (unknown) (unknown) : 1965 (units (unknown) date) Acct:[id number] unknown) (unknown) (no (unknown) (unknown) Dept at (units (unkno wn) date) . unknown) (unknown) (no (unknown) (unknown) Documented By: (units (unknown) date) Chung Mcdonald unknown) D.O. 02/05/22 1414 (unknown) (no (unknown) (unknown) Draft (units (unkno wn) date) unknown) (unknown) (no (unknown) (unknown) Eczema (units (unkno wn) date) unknown) (unknown) (no (unknown) (unknown) Family History (units (unknown) date) (Reviewed unknown) 01/23/22 @ 10:31 by Anne-Marie Clancy MD) (unknown) (no (unknown) (unknown) Family Practice (units (unknown) date) Office Visit unknown) (unknown) (no (unknown) (unknown) [facility] unknown) (unknown) (no (unknown) (unknown) HandiHaler) 1 (units ( unknown) date) cap inhalation unknown) DAILY #90 inhalations 10/28/20 [Rx Confirmed (unknown) (no (unknown) (unknown) History of (units (unk nown) date) hysterectomy for unknown) cancer (unknown) (no (unknown) (unknown) Impetigo (units (unkno wn) date) unknown) (unknown) (no (unknown) (unknown) Incontinence (units (u nknown) date) unknown) (unknown) (no (unknown) (unknown) Intake Note: (units (u nknown) date) unknown) (unknown) (no (unknown) (unknown) Intake performed (units (unknown) date) by: Mercedes Murry unknown) (unknown) (no (unknown) (unknown) Intake (units (unkno wn) date) unknown) (unknown) (no (unknown) (unknown) Intake- Clincial (units (unknown) date) Staff unknown) (unknown) (no (unknown) (unknown) Last Menstural (units (unknown) date) Cycle + Details unknown) (unknown) (no (unknown) (unknown) Loc: [facility] (units (unkno wn) date) unknown) (unknown) (no (unknown) (unknown) Medical History (units (unknown) date) (Reviewed unknown) 01/23/22 @ 10:31 by Anne-Marie Clancy MD) (unknown) (no (unknown) (unknown) Medications (units (un known) date) unknown) (unknown) (no (unknown) (unknown) Morbid obesity (units (unknown) date) due to excess unknown) calories (unknown) (no (unknown) (unknown) Mother (units (unknown) date) CVA (cerebral unknown) vascular accident) (unknown) (no (unknown) (unknown) Other Menstrual (units (unknown) date) Period: unknown) Postmenopausal (unknown) (no (unknown) (unknown) PFSH (units (unkno wn) date) unknown) (unknown) (no (unknown) (unknown) Patient: (units (unkno wn) date) Rosalba Pabon unknown) MR#: [id number] (unknown) (no (unknown) (unknown) Pulmonary (units (unkn own) date) hypertension unknown) (unknown) (no (unknown) (unknown) Reason For Visit (units (unknown) date) unknown) (unknown) (no (unknown) (unknown) Restless leg (units (u nknown) date) syndrome unknown) (unknown) (no (unknown) (unknown) Right-sided low (units (unknown) date) back pain with unknown) sciatica (unknown) (no (unknown) (unknown) Signed By: (units (unk nown) date) unknown) (unknown) (no (unknown) (unknown) Smoking Status: (units (unknown) date) Current every day unknown) smoker (unknown) (no (unknown) (unknown) Social History (units (unknown) date) unknown) (unknown) (no (unknown) (unknown) Staph skin (units (unk nown) date) infection unknown) (unknown) (no (unknown) (unknown) Surgical History (units (unknown) date) (Reviewed unknown) 01/23/22 @ 10:31 by Anne-Marie Clancy MD) (unknown) (no (unknown) (unknown) Tachycardia (units (un known) date) unknown) (unknown) (no (unknown) (unknown) This note may (units ( unknown) date) have been all or unknown) partially generated using voice recognition (unknown) (no (unknown) (unknown) Tobacco + (units (unkn own) date) Substance Use unknown) (unknown) (no (unknown) (unknown) Tobacco Status (units (unknown) date) unknown) (unknown) (no (unknown) (unknown) Visit Reasons: (units (unknown) date) GI bleed, afib, unknown) left AMA 10 (unknown) (no (unknown) (unknown) alcohol intake: (units (unknown) date) current unknown) (unknown) (no (unknown) (unknown) caps 01/02/22 (units ( unknown) date) [Rx Confirmed unknown) 02/05/22] (unknown) (no (unknown) (unknown) clobetasol 0.05 (units (unknown) date) % scalp solution unknown) 1 applic topical BEDTIME #25 mL 03/03/21 [Rx (unknown) (no (unknown) (unknown) concerns that (units ( unknown) date) were told to MA. unknown) (unknown) (no (unknown) (unknown) digoxin 250 mcg (units (unknown) date) (0.25 mg) tablet unknown) 250 mcg PO DAILY #7 tabs 01/25/22 [Rx Confirmed (unknown) (no (unknown) (unknown) grass pollen (units (u nknown) date) Allergy (Verified unknown) 02/05/22 14:16) (unknown) (no (unknown) (unknown) have occurred. (units (unknown) date) If there are any unknown) questions, please contact the Medical Records (unknown) (no (unknown) (unknown) household (units (unkn own) date) members: unknown) friend(s) (unknown) (no (unknown) (unknown) inhalation Q8H (units (unknown) date) #12.9 grams unknown) 01/25/22 [Rx Confirmed 02/05/22] (unknown) (no (unknown) (unknown) ipratropium (units (un known) date) bromide 17 unknown) mcg/actuation HFA aerosol inhaler (Atrovent HFA) 2 puff (unknown) (no (unknown) (unknown) lavender (units (unkno wn) date) (Lavandula unknown) angustifolia) Allergy (Verified 02/05/22 14:16) (unknown) (no (unknown) (unknown) may occur. (units (unk nown) date) Occasional unknown) wrong-word or 'sound-alike' substitutions may have (unknown) (no (unknown) (unknown) metoprolol (units (unk nown) date) tartrate 50 mg unknown) tablet (Lopressor) 50 mg PO TID 30 days #90 tabs (unknown) (no (unknown) (unknown) mometasone (units (unk nown) date) furoate [From unknown) NASONEX] Allergy (Unknown, Verified 02/05/22 14:16) (unknown) (no (unknown) (unknown) occurred due to (units (unknown) date) the inherent unknown) limitations of voice recognition software. Please (unknown) (no (unknown) (unknown) pine tanya Allergy (units (unknown) date) (Severe, Uncoded unknown) 02/05/22 14:16) (unknown) (no (unknown) (unknown) quit status: has (units (unknown) date) quit before unknown) (unknown) (no (unknown) (unknown) read the note (units ( unknown) date) carefully and unknown) recognize, using context, where these substitutions (unknown) (no (unknown) (unknown) severe sinus (units (u nknown) date) congestion unknown) (unknown) (no (unknown) (unknown) sinus swelling, (units (unknown) date) trouble breathing unknown) (unknown) (no (unknown) (unknown) software. 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 (unknown) (no (unknown) (unknown) spironolactone 25 (units (unknown) date) mg tablet 25 mg unknown) PO DAILY 03/03/21 [History Confirmed 02/05/22] (unknown) (no (unknown) (unknown) throat closes, (units (unknown) date) cannot breathe unknown) (unknown) (no (unknown) (unknown) tiotropium (units (unk nown) date) bromide 18 mcg unknown) capsule with inhalation device (Spiriva with (unknown) (no (unknown) (unknown) tolterodine 2 mg (units (unknown) date) capsule,extended unknown) release 24 hr (Detrol LA) 2 mg PO BEDTIME #90 (unknown) (no (unknown) (unknown) waking up in a (units (unknown) date) panic, out of unknown) breath and having problem sleeping are some Result panel 85 (unknown) (no date) (unknown) (unknown) 0.9 % (unkn own) (unknown) (no date) (unknown) (unknown) 1.1 % (unkn own) (unknown) (no date) (unknown) (unknown) 100 /ul (unkn own) (unknown) (no date) (unknown) (unknown) 100 /ul (unkn own) (unknown) (no date) (unknown) (unknown) 11.6 % (unkn own) (unknown) (no date) (unknown) (unknown) 1100 /ul (unkn own) (unknown) (no date) (unknown) (unknown) 16.7 % (unkn own) (unknown) (no date) (unknown) (unknown) 1600 /ul (unkn own) (unknown) (no date) (unknown) (unknown) 23.2 % (unkn own) (unknown) (no date) (unknown) (unknown) 24.2 pg (unkn own) (unknown) (no date) (unknown) (unknown) 25.3 % (unkn own) (unknown) (no date) (unknown) (unknown) 3.22 x10 6/ul (unkn own) (unknown) (no date) (unknown) (unknown) 30.8 % (unkn own) (unknown) (no date) (unknown) (unknown) 566 x10 3/ul (unkn own) (unknown) (no date) (unknown) (unknown) 6800 /ul (unkn own) (unknown) (no date) (unknown) (unknown) 69.7 % (unkn own) (unknown) (no date) (unknown) (unknown) 7.8 g/dl (unkn own) (unknown) (no date) (unknown) (unknown) 78.8 fl (unkn own) (unknown) (no date) (unknown) (unknown) 9.7 x10 3/ul (unkn own) Result panel 86 (unknown) (no date) (unknown) (unknown) 28 ug/dl (unkn own) Result panel 87 (unknown) (no date) (unknown) (unknown) 28 ug/dl (unkn own) (unknown) (no date) (unknown) (unknown) 330 mg/dl (unkn own) (unknown) (no date) (unknown) (unknown) 463 ug/dl (unkn own) (unknown) (no date) (unknown) (unknown) 6 % (unkn own) Result panel 88 (unknown) (no date) (unknown) (unknown) 0.9 % (unkn own) (unknown) (no date) (unknown) (unknown) 1 (units (unkn own) unknown) (unknown) (no date) (unknown) (unknown) 1.1 % (unkn own) (unknown) (no date) (unknown) (unknown) 100 /ul (unkn own) (unknown) (no date) (unknown) (unknown) 100 /ul (unkn own) (unknown) (no date) (unknown) (unknown) 11.6 % (unkn own) (unknown) (no date) (unknown) (unknown) 1100 /ul (unkn own) (unknown) (no date) (unknown) (unknown) 16.7 % (unkn own) (unknown) (no date) (unknown) (unknown) 1600 /ul (unkn own) (unknown) (no date) (unknown) (unknown) 2 (units (unkn own) unknown) (unknown) (no date) (unknown) (unknown) 23.2 % (unkn own) (unknown) (no date) (unknown) (unknown) 24.2 pg (unkn own) (unknown) (no date) (unknown) (unknown) 25.3 % (unkn own) (unknown) (no date) (unknown) (unknown) 3.22 x10 6/ul (unkn own) (unknown) (no date) (unknown) (unknown) 30.8 % (unkn own) (unknown) (no date) (unknown) (unknown) 566 x10 3/ul (unkn own) (unknown) (no date) (unknown) (unknown) 6800 /ul (unkn own) (unknown) (no date) (unknown) (unknown) 69.7 % (unkn own) (unknown) (no date) (unknown) (unknown) 7.8 g/dl (unkn own) (unknown) (no date) (unknown) (unknown) 78.8 fl (unkn own) (unknown) (no date) (unknown) (unknown) 9.7 x10 3/ul (unkn own) (unknown) (no date) (unknown) (unknown) Incr (units (unkn own) unknown) (unknown) (no date) (unknown) (unknown) See Below (units (unk nown) unknown) Result panel 89 (unknown) (no date) (unknown) (unknown) > 60 ml/min (unkn own) (unknown) (no date) (unknown) (unknown) > 60 ml/min (unkn own) (unknown) (no date) (unknown) (unknown) 0.65 mg/dl (unkn own) (unknown) (no date) (unknown) (unknown) 0.8 mg/dl (unkn own) (unknown) (no date) (unknown) (unknown) 1.1 (units unknown) (unknown) (unknown) (no date) (unknown) (unknown) 101 mg/dl (unkn own) (unknown) (no date) (unknown) (unknown) 101 mg/dl (unkn own) (unknown) (no date) (unknown) (unknown) 141 mmol/l (unkn own) (unknown) (no date) (unknown) (unknown) 15 mg/dl (unkn own) (unknown) (no date) (unknown) (unknown) 208 iu/l (unkn own) (unknown) (no date) (unknown) (unknown) 23.1 (units unknown) (unknown) (unknown) (no date) (unknown) (unknown) 3.3 g/dl (unkn own) (unknown) (no date) (unknown) (unknown) 3.6 g/dl (unkn own) (unknown) (no date) (unknown) (unknown) 3.8 mmol/l (unkn own) (unknown) (no date) (unknown) (unknown) 31 mmol/l (unkn own) (unknown) (no date) (unknown) (unknown) 44 iu/l (unkn own) (unknown) (no date) (unknown) (unknown) 6.9 g/dl (unkn own) (unknown) (no date) (unknown) (unknown) 77 u/l (unkn own) (unknown) (no date) (unknown) (unknown) 9.1 mg/dl (unkn own) (unknown) (no date) (unknown) (unknown) 99 mmol/l (unkn own) Result panel 90 (unknown) (no (unknown) (unknown) (no value) (units (unk nown) date) unknown) (unknown) (no (unknown) (unknown) (1) GI bleed: (units ( unknown) date) unknown) (unknown) (no (unknown) (unknown) (2) Essential (units ( unknown) date) hypertension: unknown) (unknown) (no (unknown) (unknown) (3) Chronic atrial (units (unknown) date) fibrillation: unknown) (unknown) (no (unknown) (unknown) (4) COPD (chronic (units (unknown) date) obstructive unknown) pulmonary disease): (unknown) (no (unknown) (unknown) (5) Encounter for (units (unknown) date) smoking cessation unknown) counseling: (unknown) (no (unknown) (unknown) (6) Sleep apnea: (units (unknown) date) unknown) (unknown) (no (unknown) (unknown) 01/25/22 [Rx (units (u nknown) date) Confirmed 02/05/22] unknown) (unknown) (no (unknown) (unknown) 02/05/22 [Rx (units (u nknown) date) Confirmed 02/05/22] unknown) (unknown) (no (unknown) (unknown) 02/05/22 (units (unkno wn) date) unknown) (unknown) (no (unknown) (unknown) 02/05/22] (units (unkn own) date) unknown) (unknown) (no (unknown) (unknown) [id number] (units (unkno wn) date) unknown) (unknown) (no (unknown) (unknown) 56 yo female (units (u nknown) date) presents today with unknown) several concerns. GI bleed, problem sleeping, (unknown) (no (unknown) (unknown) 56-year-old smoker (units (unknown) date) with history of unknown) advanced COPD, hypoxia presents the clinic to (unknown) (no (unknown) (unknown) Abdomen-soft (units (u nknown) date) nontender, no HSM, unknown) no palpable masses rebound or guarding (unknown) (no (unknown) (unknown) Abdominal pain (units (unknown) date) unknown) (unknown) (no (unknown) (unknown) Accompanied by: Son (unit s (unknown) date) unknown) (unknown) (no (unknown) (unknown) Age/Sex: 56 / F (units (unknown) date) Date of Service: unknown) (unknown) (no (unknown) (unknown) Allergic dermatitis (unit s (unknown) date) of eyelids of both unknown) eyes (unknown) (no (unknown) (unknown) Allergies (units (unkn own) date) unknown) (unknown) (no (unknown) (unknown) [place] [address] (unit s (unknown) date) unknown) (unknown) (no (unknown) (unknown) Anemia (units (unkno wn) date) unknown) (unknown) (no (unknown) (unknown) Arthritis (Unknown) (unit s (unknown) date) unknown) (unknown) (no (unknown) (unknown) Assessment + Plan (units (unknown) date) unknown) (unknown) (no (unknown) (unknown) Assessment and (units (unknown) date) Plan: unknown) (unknown) (no (unknown) (unknown) Asthma (Unknown) (units (unknown) date) unknown) (unknown) (no (unknown) (unknown) Asthma (units (unkno wn) date) unknown) (unknown) (no (unknown) (unknown) Attending Dr: Chung Corona (unit s (unknown) date) Harry Mcfarlane unknown) (unknown) (no (unknown) (unknown) Box) See Rx (units (un known) date) Instructions PO PER unknown) MICHAEL DIR #53 ea 02/05/22 [Rx Confirmed 02/05/22] (unknown) (no (unknown) (unknown) COPD (chronic (units ( unknown) date) obstructive unknown) pulmonary disease) (unknown) (no (unknown) (unknown) COPD and overall (units (unknown) date) even resting hypoxia unknown) as she could possibly be a candidate for (unknown) (no (unknown) (unknown) COPD type: chronic (units (unknown) date) bronchitis Chronic unknown) bronchitis type: unspecified (unknown) (no (unknown) (unknown) Carpal tunnel (units ( unknown) date) syndrome (-2016) unknown) (unknown) (no (unknown) (unknown) Chantix was sent to (unit s (unknown) date) her pharmacy. She unknown) will follow back up with us in 2 months (unknown) (no (unknown) (unknown) Chest-heart (units (un known) date) irregular rate and unknown) rhythm lungs clear to auscultation no wheezes (unknown) (no (unknown) (unknown) Chief Complaint (units (unknown) date) unknown) (unknown) (no (unknown) (unknown) Chief Complaint: (units (unknown) date) Follow-up unknown) hospitalization, GI bleed, COPD the (unknown) (no (unknown) (unknown) Chronic atrial (units (unknown) date) fibrillation unknown) (unknown) (no (unknown) (unknown) Chronic obstructive (unit s (unknown) date) pulmonary disease, unknown) unspecified, J45.909 - Unspecified (unknown) (no (unknown) (unknown) Complete Blood (units (unknown) date) Count AUTO DIFF unknown) Today D64.9 - Anemia, unspecified (unknown) (no (unknown) (unknown) Comprehensive (units ( unknown) date) Metabolic Panel unknown) Today I10 - Essential (primary) hypertension (unknown) (no (unknown) (unknown) Confirmed 02/05/22] (unit s (unknown) date) unknown) (unknown) (no (unknown) (unknown) Consultation (units (u nknown) date) regarding smoking unknown) cessation the risks and benefits in the (unknown) (no (unknown) (unknown) Cor pulmonale (units ( unknown) date) (chronic) unknown) (unknown) (no (unknown) (unknown) : 1965 (units (unknown) date) Acct:[id number] unknown) (unknown) (no (unknown) (unknown) Dept at (units (unkno wn) date) . unknown) (unknown) (no (unknown) (unknown) Details: (units (unkno wn) date) unknown) (unknown) (no (unknown) (unknown) Discontinued (units (u nknown) date) Reason: None 250 mcg unknown) PO DAILY 7 tabs 0RF (unknown) (no (unknown) (unknown) Discontinued (units (u nknown) date) unknown) (unknown) (no (unknown) (unknown) Documented By: (units (unknown) date) Chung Mcdonald D.O. unknown) 02/05/22 1414 (unknown) (no (unknown) (unknown) Draft (units (unkno wn) date) unknown) (unknown) (no (unknown) (unknown) Eczema (units (unkno wn) date) unknown) (unknown) (no (unknown) (unknown) Exam Narrative (units (unknown) date) unknown) (unknown) (no (unknown) (unknown) Exam Narrative: (units (unknown) date) unknown) (unknown) (no (unknown) (unknown) Exam (units (unkno wn) date) unknown) (unknown) (no (unknown) (unknown) Family History (units (unknown) date) (Reviewed 02/05/22 @ unknown) 17:50 by Chung Mcdonald DO) (unknown) (no (unknown) (unknown) Family Practice (units (unknown) date) Office Visit unknown) (unknown) (no (unknown) (unknown) [facility]) (unknown) (no (unknown) (unknown) Frail appearing (units (unknown) date) middle-aged female unknown) adult with above complaints, contributed to (unknown) (no (unknown) (unknown) GI bleed (units (unkno wn) date) type/associated unknown) pathology: melena Qualified Code(s): K92.1 (unknown) (no (unknown) (unknown) Gastroenterology (units (unknown) date) and Cardiology unknown) (unknown) (no (unknown) (unknown) General physical (units (unknown) date) examination, unknown) physical examination (unknown) (no (unknown) (unknown) HPI (units (unkno wn) date) unknown) (unknown) (no (unknown) (unknown) HandiHaler) 1 cap (units (unknown) date) inhalation DAILY #90 unknown) inhalations 10/28/20 [Rx Confirmed (unknown) (no (unknown) (unknown) Head-normocephalic (units (unknown) date) atraumatic, unknown) (unknown) (no (unknown) (unknown) History of (units (unk nown) date) hysterectomy for unknown) cancer (unknown) (no (unknown) (unknown) Hypotension (units (un known) date) unknown) (unknown) (no (unknown) (unknown) Impetigo (units (unkno wn) date) unknown) (unknown) (no (unknown) (unknown) Incontinence (units (u nknown) date) unknown) (unknown) (no (unknown) (unknown) Intake Note: (units (u nknown) date) unknown) (unknown) (no (unknown) (unknown) Intake performed (units (unknown) date) by: Mercedes Murry unknown) (unknown) (no (unknown) (unknown) Intake (units (unkno wn) date) unknown) (unknown) (no (unknown) (unknown) Intake- Clincial (units (unknown) date) Staff unknown) (unknown) (no (unknown) (unknown) Iron Profile (w/ % (units (unknown) date) Saturation) Today unknown) D64.9 - Anemia, unspecified (unknown) (no (unknown) (unknown) Last Menstural (units (unknown) date) Cycle + Details unknown) (unknown) (no (unknown) (unknown) Loc: [facility] (units (unkno wn) date) unknown) (unknown) (no (unknown) (unknown) Medical History (units (unknown) date) (Updated 02/05/22 @ unknown) 17:58 by Chung Mcdonald DO) (unknown) (no (unknown) (unknown) Medications (units (un known) date) unknown) (unknown) (no (unknown) (unknown) Medications: (units (u nknown) date) unknown) (unknown) (no (unknown) (unknown) Melena (units (unkno wn) date) unknown) (unknown) (no (unknown) (unknown) Morbid obesity due (units (unknown) date) to excess calories unknown) (unknown) (no (unknown) (unknown) Mother CVA (unit s (unknown) date) (cerebral vascular unknown) accident) (unknown) (no (unknown) (unknown) Neck-supple no (units (unknown) date) thyromegaly, JVD or unknown) lymphadenopathy (unknown) (no (unknown) (unknown) Need monitoring of (units (unknown) date) Renal functions and unknown) refill by Cardiology (unknown) (no (unknown) (unknown) New (units (unkno wn) date) unknown) (unknown) (no (unknown) (unknown) Orders (units (unkno wn) date) unknown) (unknown) (no (unknown) (unknown) Orders: (units (unkno wn) date) unknown) (unknown) (no (unknown) (unknown) Other Menstrual (units (unknown) date) Period: unknown) Postmenopausal (unknown) (no (unknown) (unknown) PFSH (units (unkno wn) date) unknown) (unknown) (no (unknown) (unknown) Partially rate (units (unknown) date) controlled on unknown) today's presentation she does not report any (unknown) (no (unknown) (unknown) Patient: (units (unkno wn) date) Rosalba Pabon MR#: unknown) M0000 (unknown) (no (unknown) (unknown) Pulmonary (units (unkn own) date) hypertension unknown) (unknown) (no (unknown) (unknown) Qualified Code(s): (units (unknown) date) J42 - Unspecified unknown) chronic bronchitis (unknown) (no (unknown) (unknown) Qualifiers: (units (un known) date) unknown) (unknown) (no (unknown) (unknown) ROS Narrative (units ( unknown) date) unknown) (unknown) (no (unknown) (unknown) ROS Narrative: (units (unknown) date) unknown) (unknown) (no (unknown) (unknown) ROS per HPI the (units (unknown) date) patient remains in unknown) poor health which is primarily a self (unknown) (no (unknown) (unknown) ROS (units (unkno wn) date) unknown) (unknown) (no (unknown) (unknown) Reason For Visit (units (unknown) date) unknown) (unknown) (no (unknown) (unknown) Referral Cardiology (unit s (unknown) date) D64.9 - Anemia, unknown) unspecified, I10 - Essential (primary) (unknown) (no (unknown) (unknown) Referral (units (unkno wn) date) Pulmonology I27.20 - unknown) Pulmonary hypertension, unspecified, J44.9 (unknown) (no (unknown) (unknown) Referral Sleep (units (unknown) date) Medicine E66.01 - unknown) Morbid (severe) obesity due to excess (unknown) (no (unknown) (unknown) Referrals (units (unkn own) date) unknown) (unknown) (no (unknown) (unknown) Restless leg (units (u nknown) date) syndrome unknown) (unknown) (no (unknown) (unknown) Right-sided low (units (unknown) date) back pain with unknown) sciatica (unknown) (no (unknown) (unknown) She is here to (units (unknown) date) review her GI unknown) bleeding hospitalization complicated by atrial (unknown) (no (unknown) (unknown) Signed By: (units (unk nown) date) unknown) (unknown) (no (unknown) (unknown) Sleep apnea (units (un known) date) unknown) (unknown) (no (unknown) (unknown) Smoking Status: (units (unknown) date) Current every day unknown) smoker (unknown) (no (unknown) (unknown) Social History (units (unknown) date) unknown) (unknown) (no (unknown) (unknown) Staph skin (units (unk nown) date) infection unknown) (unknown) (no (unknown) (unknown) Status: Acute (units ( unknown) date) unknown) (unknown) (no (unknown) (unknown) Surgical History (units (unknown) date) (Reviewed 02/05/22 @ unknown) 17:50 by Chung Mcdonald DO) (unknown) (no (unknown) (unknown) Tachycardia (units (un known) date) unknown) (unknown) (no (unknown) (unknown) The patient (units (un known) date) clinically has unknown) symptoms of sleep apnea reported as increasing (unknown) (no (unknown) (unknown) The patient remains (unit s (unknown) date) a smoker were unknown) encouraging her to quit smoking she will try (unknown) (no (unknown) (unknown) The patient was (units (unknown) date) re-initiated on unknown) metoprolol for ventricular rate control and her (unknown) (no (unknown) (unknown) The patient was (units (unknown) date) very reluctant for unknown) several the procedures and was often (unknown) (no (unknown) (unknown) The patient's (units ( unknown) date) hematocrit is unknown) holding stable and has slightly increased from her (unknown) (no (unknown) (unknown) This note may have (units (unknown) date) been all or unknown) partially generated using voice recognition (unknown) (no (unknown) (unknown) Tobacco + Substance (unit s (unknown) date) Use unknown) (unknown) (no (unknown) (unknown) Tobacco Status (units (unknown) date) unknown) (unknown) (no (unknown) (unknown) Visit Reasons: GI (units (unknown) date) bleed, afib, left unknown) AMA 10 (unknown) (no (unknown) (unknown) Vital signs are (units (unknown) date) reported, charted unknown) and reviewed with patient. 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 A prescription for (unknown) (no (unknown) (unknown) and initiated for (units (unknown) date) supplementation to unknown) assist with recovery. She will follow back (unknown) (no (unknown) (unknown) anginal like (units (un known) date) symptoms but does unknown) have exertional fatigue complicated by her severe (unknown) (no (unknown) (unknown) asthma, (units (unkno wn) date) uncomplicated unknown) (unknown) (no (unknown) (unknown) been sleeping (units ( unknown) date) poorly and unknown) potentially also has sleep apnea (unknown) (no (unknown) (unknown) calories, I27.20 - (units (unknown) date) Pulmonary unknown) hypertension, unspecified, I48.20 - Chronic atrial (unknown) (no (unknown) (unknown) caps 01/02/22 [Rx (units (unknown) date) Confirmed 02/05/22] unknown) (unknown) (no (unknown) (unknown) clobetasol 0.05 % (units (unknown) date) scalp solution 1 unknown) applic topical BEDTIME #25 mL 03/03/21 [Rx (unknown) (no (unknown) (unknown) concerns that were (units (unknown) date) told to MA. unknown) (unknown) (no (unknown) (unknown) contentious on (units (unknown) date) interventions unknown) throughout her hospital stay for the discharge (unknown) (no (unknown) (unknown) digoxin 250 mcg (units (unknown) date) (0.25 mg) tablet 250 unknown) mcg PO DAILY #90 tabs 02/05/22 [Rx (unknown) (no (unknown) (unknown) digoxin 250 mcg PO (units (unknown) date) DAILY 90 tabs 0RF unknown) (unknown) (no (unknown) (unknown) digoxin (units (unkno wn) date) unknown) (unknown) (no (unknown) (unknown) discharge a week (units (unknown) date) ago. B12 folic acid unknown) as well as iron levels will be recheck it (unknown) (no (unknown) (unknown) during her (units (unk nown) date) hospitalization of unknown) hypoxia which delayed her EGD for exploratory (unknown) (no (unknown) (unknown) evaluation regards (units (unknown) date) to potential upper unknown) GI bleed. (unknown) (no (unknown) (unknown) ferrous gluconate (units (unknown) date) 324 mg (38 mg iron) unknown) tablet 324 mg PO DAILY #90 tabs 02/05/22 (unknown) (no (unknown) (unknown) ferrous gluconate (units (unknown) date) 324 mg PO DAILY 90 unknown) tabs 1RF (unknown) (no (unknown) (unknown) fibrillation, (units ( unknown) date) hypoxia in new unknown) troubles with incontinence. The patient did not (unknown) (no (unknown) (unknown) fibrillation, (units ( unknown) date) unspecified, J44.9 - unknown) Chronic obstructive pulmonary disease, (unknown) (no (unknown) (unknown) fibrillation, (units ( unknown) date) unspecified, K92.2 - unknown) Gastrointestinal hemorrhage, unspecified (unknown) (no (unknown) (unknown) fibrillation. 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 She continues unknown) to smoke despite having comorbid issues (unknown) (no (unknown) (unknown) grass pollen (units (u nknown) date) Allergy (Verified unknown) 02/05/22 14:16) (unknown) (no (unknown) (unknown) have occurred. 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 and (unknown) (no (unknown) (unknown) hypertension, (units ( unknown) date) I27.81 - Cor unknown) pulmonale (chronic), I48.20 - Chronic atrial (unknown) (no (unknown) (unknown) improvement of (units (unknown) date) overall health was unknown) reviewed with the patient as well as a small (unknown) (no (unknown) (unknown) inflicted we (units (u nknown) date) discussed issues unknown) related to taking charge of her medical setbacks (unknown) (no (unknown) (unknown) inhalation Q8H (units (unknown) date) #12.9 grams 01/25/22 unknown) [Rx Confirmed 02/05/22] (unknown) (no (unknown) (unknown) ipratropium bromide (unit s (unknown) date) 17 mcg/actuation HFA unknown) aerosol inhaler (Atrovent HFA) 2 puff (unknown) (no (unknown) (unknown) lavender (Lavandula (unit s (unknown) date) angustifolia) unknown) Allergy (Verified 02/05/22 14:16) (unknown) (no (unknown) (unknown) may occur. (units (unk nown) date) Occasional unknown) wrong-word or 'sound-alike' substitutions may have (unknown) (no (unknown) (unknown) metoprolol tartrate (unit s (unknown) date) 50 mg tablet unknown) (Lopressor) 50 mg PO TID 30 days #90 tabs (unknown) (no (unknown) (unknown) mometasone furoate (units (unknown) date) [From NASONEX] unknown) Allergy (Unknown, Verified 02/05/22 14:16) (unknown) (no (unknown) (unknown) occurred due to the (unit s (unknown) date) inherent limitations unknown) of voice recognition software. Please (unknown) (no (unknown) (unknown) patient continues (units (unknown) date) to have respiratory unknown) issues with exertional fatigue in (unknown) (no (unknown) (unknown) pine tanya Allergy (units (unknown) date) (Severe, Uncoded unknown) 02/05/22 14:16) (unknown) (no (unknown) (unknown) potential strategy (units (unknown) date) for alternative unknown) anticoagulation given her history of this (unknown) (no (unknown) (unknown) quit status: has (units (unknown) date) quit before unknown) (unknown) (no (unknown) (unknown) rales or rhonchi, (units (unknown) date) good peripheral unknown) pulses (unknown) (no (unknown) (unknown) read the note (units ( unknown) date) carefully and unknown) recognize, using context, where these substitutions (unknown) (no (unknown) (unknown) recent bleed. She (units (unknown) date) will continue to unknown) monitor at home (unknown) (no (unknown) (unknown) secondary to (units (u nknown) date) decrease use unknown) ibuprofen wall on anticoagulation for atrial (unknown) (no (unknown) (unknown) several units of (units (unknown) date) blood for unknown) transfusion. On today's visit 1 week after discharge (unknown) (no (unknown) (unknown) severe sinus (units (u nknown) date) congestion unknown) (unknown) (no (unknown) (unknown) sinus swelling, (units (unknown) date) trouble breathing unknown) (unknown) (no (unknown) (unknown) sleep apnea (units (un known) date) referral will be unknown) undertaken today (unknown) (no (unknown) (unknown) snoring and daytime (unit s (unknown) date) somnolence no unknown) observed occurrences of apneic episodes heard (unknown) (no (unknown) (unknown) software. 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 (units (unkno wn) date) unknown) (unknown) (no (unknown) (unknown) supplement. The (units (unknown) date) patient would unknown) benefit from referral to pulmonology, (unknown) (no (unknown) (unknown) tearful at times (units (unknown) date) unknown) (unknown) (no (unknown) (unknown) the potential for (units (unknown) date) improvement remains unknown) there are a few continues to have (unknown) (no (unknown) (unknown) throat closes, (units (unknown) date) cannot breathe unknown) (unknown) (no (unknown) (unknown) tiotropium bromide (units (unknown) date) 18 mcg capsule with unknown) inhalation device (Spiriva with (unknown) (no (unknown) (unknown) to smoke despite (units (unknown) date) his obvious ill unknown) affects and contributing factor. Patient has (unknown) (no (unknown) (unknown) tolterodine 2 mg (units (unknown) date) capsule,extended unknown) release 24 hr (Detrol LA) 2 mg PO BEDTIME #90 (unknown) (no (unknown) (unknown) unspecified (units (un known) date) unknown) (unknown) (no (unknown) (unknown) up with a (units (unkn own) date) solutions analyst unknown) as noted (unknown) (no (unknown) (unknown) varenicline (units (un known) date) (Chantix Continuing unknown) Month Box) 1 mg PO BID 56 tabs 1RF (unknown) (no (unknown) (unknown) varenicline (units (un known) date) (Chantix Starting unknown) Month Box) PO PER PKG DIR 53 ea 0RF (unknown) (no (unknown) (unknown) varenicline 0.5 mg (units (unknown) date) (11)-1 mg (42) unknown) tablets in a dose pack (Chantix Starting Month (unknown) (no (unknown) (unknown) varenicline 1 mg (units (unknown) date) tablet (Chantix unknown) Continuing Month Box) 1 mg PO BID #56 tabs (unknown) (no (unknown) (unknown) waking up in a (units (unknown) date) panic, out of breath unknown) and having problem sleeping are some Result panel 91 (unknown) (no (unknown) (unknown) (no value) (units (unk nown) date) unknown) (unknown) (no (unknown) (unknown) (1) GI bleed: (units ( unknown) date) unknown) (unknown) (no (unknown) (unknown) (2) Essential (units ( unknown) date) hypertension: unknown) (unknown) (no (unknown) (unknown) (3) Chronic atrial (units (unknown) date) fibrillation: unknown) (unknown) (no (unknown) (unknown) (4) COPD (chronic (units (unknown) date) obstructive unknown) pulmonary disease): (unknown) (no (unknown) (unknown) (5) Encounter for (units (unknown) date) smoking cessation unknown) counseling: (unknown) (no (unknown) (unknown) (6) Sleep apnea: (units (unknown) date) unknown) (unknown) (no (unknown) (unknown) 01/25/22 [Rx (units (u nknown) date) Confirmed 02/05/22] unknown) (unknown) (no (unknown) (unknown) 02/05/22 1805 (units ( unknown) date) unknown) (unknown) (no (unknown) (unknown) 02/05/22 [Rx (units (u nknown) date) Confirmed 02/05/22] unknown) (unknown) (no (unknown) (unknown) 02/05/22 (units (unkno wn) date) unknown) (unknown) (no (unknown) (unknown) 02/05/22] (units (unkn own) date) unknown) (unknown) (no (unknown) (unknown) [address] (units (unkno wn) date) unknown) (unknown) (no (unknown) (unknown) 56 yo female (units (u nknown) date) presents today with unknown) several concerns. GI bleed, problem sleeping, (unknown) (no (unknown) (unknown) 56-year-old smoker (units (unknown) date) with history of unknown) advanced COPD, hypoxia presents the clinic to (unknown) (no (unknown) (unknown) 90 inhalations 1RF (units (unknown) date) COPD unknown) (unknown) (no (unknown) (unknown) Abdomen-soft (units (u nknown) date) nontender, no HSM, unknown) no palpable masses rebound or guarding (unknown) (no (unknown) (unknown) Abdominal pain (units (unknown) date) unknown) (unknown) (no (unknown) (unknown) Accompanied by: Son (unit s (unknown) date) unknown) (unknown) (no (unknown) (unknown) Age/Sex: 56 / F (units (unknown) date) Date of Service: unknown) (unknown) (no (unknown) (unknown) Allergic dermatitis (unit s (unknown) date) of eyelids of both unknown) eyes (unknown) (no (unknown) (unknown) Allergies (units (unkn own) date) unknown) (unknown) (no (unknown) (unknown) [place] [id number] (unit s (unknown) date) unknown) (unknown) (no (unknown) (unknown) Anemia (units (unkno wn) date) unknown) (unknown) (no (unknown) (unknown) Arthritis (Unknown) (unit s (unknown) date) unknown) (unknown) (no (unknown) (unknown) Assessment + Plan (units (unknown) date) unknown) (unknown) (no (unknown) (unknown) Assessment and (units (unknown) date) Plan: unknown) (unknown) (no (unknown) (unknown) Asthma (Unknown) (units (unknown) date) unknown) (unknown) (no (unknown) (unknown) Asthma (units (unkno wn) date) unknown) (unknown) (no (unknown) (unknown) Attending Dr: Chung Corona (unit s (unknown) date) Harry Mcfarlane unknown) (unknown) (no (unknown) (unknown) Box) See Rx (units (un known) date) Instructions PO PER unknown) [facility] DIR #53 ea 02/05/22 [Rx Confirmed 02/05/22] (unknown) (no (unknown) (unknown) COPD (chronic (units ( unknown) date) obstructive unknown) pulmonary disease) (unknown) (no (unknown) (unknown) COPD and overall (units (unknown) date) even resting hypoxia unknown) as she could possibly be a candidate for (unknown) (no (unknown) (unknown) COPD type: chronic (units (unknown) date) bronchitis Chronic unknown) bronchitis type: unspecified (unknown) (no (unknown) (unknown) Carpal tunnel (units ( unknown) date) syndrome (-2017) unknown) (unknown) (no (unknown) (unknown) Chantix was sent to (unit s (unknown) date) her pharmacy. She unknown) will follow back up with us in 2 months (unknown) (no (unknown) (unknown) Chest-heart (units (un known) date) irregular rate and unknown) rhythm lungs clear to auscultation no wheezes (unknown) (no (unknown) (unknown) Chief Complaint (units (unknown) date) unknown) (unknown) (no (unknown) (unknown) Chief Complaint: (units (unknown) date) Follow-up unknown) hospitalization, GI bleed, COPD the (unknown) (no (unknown) (unknown) Chronic atrial (units (unknown) date) fibrillation unknown) (unknown) (no (unknown) (unknown) Chronic obstructive (unit s (unknown) date) pulmonary disease, unknown) unspecified, J45.909 - Unspecified (unknown) (no (unknown) (unknown) Complete Blood (units (unknown) date) Count AUTO DIFF unknown) Today D64.9 - Anemia, unspecified (unknown) (no (unknown) (unknown) Comprehensive (units ( unknown) date) Metabolic Panel unknown) Today I10 - Essential (primary) hypertension (unknown) (no (unknown) (unknown) Confirmed 02/05/22] (unit s (unknown) date) unknown) (unknown) (no (unknown) (unknown) Consultation (units (u nknown) date) regarding smoking unknown) cessation the risks and benefits in the (unknown) (no (unknown) (unknown) Cor pulmonale (units ( unknown) date) (chronic) unknown) (unknown) (no (unknown) (unknown) : 1965 (units (unknown) date) Acct:[id number] unknown) (unknown) (no (unknown) (unknown) Dept at (units (unkno wn) date) . unknown) (unknown) (no (unknown) (unknown) Details: (units (unkno wn) date) unknown) (unknown) (no (unknown) (unknown) Discontinued (units (u nknown) date) Reason: None 250 mcg unknown) PO DAILY 7 tabs 0RF (unknown) (no (unknown) (unknown) Discontinued (units (u nknown) date) unknown) (unknown) (no (unknown) (unknown) Documented By: (units (unknown) date) Chung Mcdonald D.O. unknown) 02/05/22 1414 (unknown) (no (unknown) (unknown) Eczema (units (unkno wn) date) unknown) (unknown) (no (unknown) (unknown) Exam Narrative (units (unknown) date) unknown) (unknown) (no (unknown) (unknown) Exam Narrative: (units (unknown) date) unknown) (unknown) (no (unknown) (unknown) Exam (units (unkno wn) date) unknown) (unknown) (no (unknown) (unknown) Family History (units (unknown) date) (Reviewed 02/05/22 @ unknown) 17:50 by Chung Mcdonald DO) (unknown) (no (unknown) (unknown) Family Practice (units (unknown) date) Office Visit unknown) (unknown) (no (unknown) (unknown) [facility]) (unknown) (no (unknown) (unknown) Frail appearing (units (unknown) date) middle-aged female unknown) adult with above complaints, contributed to (unknown) (no (unknown) (unknown) GI bleed (units (unkno wn) date) type/associated unknown) pathology: melena Qualified Code(s): K92.1 (unknown) (no (unknown) (unknown) Gastroenterology (units (unknown) date) and Cardiology unknown) (unknown) (no (unknown) (unknown) General physical (units (unknown) date) examination, unknown) physical examination (unknown) (no (unknown) (unknown) HPI (units (unkno wn) date) unknown) (unknown) (no (unknown) (unknown) HandiHaler) 1 cap (units (unknown) date) inhalation DAILY unknown) COPD #90 inhalations 02/05/22 [Rx Confirmed (unknown) (no (unknown) (unknown) Head-normocephalic (units (unknown) date) atraumatic, unknown) (unknown) (no (unknown) (unknown) History of (units (unk nown) date) hysterectomy for unknown) cancer (unknown) (no (unknown) (unknown) Hypotension (units (un known) date) unknown) (unknown) (no (unknown) (unknown) Impetigo (units (unkno wn) date) unknown) (unknown) (no (unknown) (unknown) Incontinence (units (u nknown) date) unknown) (unknown) (no (unknown) (unknown) Intake Note: (units (u nknown) date) unknown) (unknown) (no (unknown) (unknown) Intake performed (units (unknown) date) by: Mercedes Murry unknown) (unknown) (no (unknown) (unknown) Intake (units (unkno wn) date) unknown) (unknown) (no (unknown) (unknown) Intake- Clincial (units (unknown) date) Staff unknown) (unknown) (no (unknown) (unknown) Iron Profile (w/ % (units (unknown) date) Saturation) Today unknown) D64.9 - Anemia, unspecified (unknown) (no (unknown) (unknown) Last Menstural (units (unknown) date) Cycle + Details unknown) (unknown) (no (unknown) (unknown) Loc: [facility] (units (unkno wn) date) unknown) (unknown) (no (unknown) (unknown) Medical History (units (unknown) date) (Updated 02/05/22 @ unknown) 18:03 by Chung Mcdonald DO) (unknown) (no (unknown) (unknown) Medications (units (un known) date) unknown) (unknown) (no (unknown) (unknown) Medications: (units (u nknown) date) unknown) (unknown) (no (unknown) (unknown) Melena (units (unkno wn) date) unknown) (unknown) (no (unknown) (unknown) Morbid obesity due (units (unknown) date) to excess calories unknown) (unknown) (no (unknown) (unknown) Mother CVA (unit s (unknown) date) (cerebral vascular unknown) accident) (unknown) (no (unknown) (unknown) Neck-supple no (units (unknown) date) thyromegaly, JVD or unknown) lymphadenopathy (unknown) (no (unknown) (unknown) Need monitoring of (units (unknown) date) Renal functions and unknown) refill by Cardiology (unknown) (no (unknown) (unknown) New (units (unkno wn) date) unknown) (unknown) (no (unknown) (unknown) Orders (units (unkno wn) date) unknown) (unknown) (no (unknown) (unknown) Orders: (units (unkno wn) date) unknown) (unknown) (no (unknown) (unknown) Other Menstrual (units (unknown) date) Period: unknown) Postmenopausal (unknown) (no (unknown) (unknown) PFSH (units (unkno wn) date) unknown) (unknown) (no (unknown) (unknown) Partially rate (units (unknown) date) controlled on unknown) today's presentation she does not report any (unknown) (no (unknown) (unknown) Patient: (units (unkno wn) date) Rosalba Pabon MR#: unknown) M0000 (unknown) (no (unknown) (unknown) Pulmonary (units (unkn own) date) hypertension unknown) (unknown) (no (unknown) (unknown) Qualified Code(s): (units (unknown) date) J42 - Unspecified unknown) chronic bronchitis (unknown) (no (unknown) (unknown) Qualifiers: (units (un known) date) unknown) (unknown) (no (unknown) (unknown) ROS Narrative (units ( unknown) date) unknown) (unknown) (no (unknown) (unknown) ROS Narrative: (units (unknown) date) unknown) (unknown) (no (unknown) (unknown) ROS per HPI the (units (unknown) date) patient remains in unknown) poor health which is primarily a self (unknown) (no (unknown) (unknown) ROS (units (unkno wn) date) unknown) (unknown) (no (unknown) (unknown) Reason For Visit (units (unknown) date) unknown) (unknown) (no (unknown) (unknown) Referral Cardiology (unit s (unknown) date) D64.9 - Anemia, unknown) unspecified, I10 - Essential (primary) (unknown) (no (unknown) (unknown) Referral (units (unkno wn) date) Pulmonology I27.20 - unknown) Pulmonary hypertension, unspecified, J44.9 (unknown) (no (unknown) (unknown) Referral Sleep (units (unknown) date) Medicine E66.01 - unknown) Morbid (severe) obesity due to excess (unknown) (no (unknown) (unknown) Referrals (units (unkn own) date) unknown) (unknown) (no (unknown) (unknown) Refilled (units (unkno wn) date) unknown) (unknown) (no (unknown) (unknown) Restless leg (units (u nknown) date) syndrome unknown) (unknown) (no (unknown) (unknown) Right-sided low (units (unknown) date) back pain with unknown) sciatica (unknown) (no (unknown) (unknown) She is here to (units (unknown) date) review her GI unknown) bleeding hospitalization complicated by atrial (unknown) (no (unknown) (unknown) Signed By: (units (unk nown) date) <Electronically unknown) signed by Chung Mcdonald D.O.> (unknown) (no (unknown) (unknown) Signed (units (unkno wn) date) unknown) (unknown) (no (unknown) (unknown) Sleep apnea type: (units (unknown) date) obstructive unknown) Qualified Code(s): G47.33 - Obstructive (unknown) (no (unknown) (unknown) Sleep apnea (units (un known) date) unknown) (unknown) (no (unknown) (unknown) Smoking Status: (units (unknown) date) Current every day unknown) smoker (unknown) (no (unknown) (unknown) Social History (units (unknown) date) unknown) (unknown) (no (unknown) (unknown) Staph skin (units (unk nown) date) infection unknown) (unknown) (no (unknown) (unknown) Status: Acute (units ( unknown) date) unknown) (unknown) (no (unknown) (unknown) Surgical History (units (unknown) date) (Reviewed 02/05/22 @ unknown) 17:50 by Chung Mcdonald DO) (unknown) (no (unknown) (unknown) Tachycardia (units (un known) date) unknown) (unknown) (no (unknown) (unknown) The patient (units (un known) date) clinically has unknown) symptoms of sleep apnea reported as increasing (unknown) (no (unknown) (unknown) The patient remains (unit s (unknown) date) a smoker were unknown) encouraging her to quit smoking she will try (unknown) (no (unknown) (unknown) The patient was (units (unknown) date) re-initiated on unknown) metoprolol for ventricular rate control and her (unknown) (no (unknown) (unknown) The patient was (units (unknown) date) very reluctant for unknown) several the procedures and was often (unknown) (no (unknown) (unknown) The patient's (units ( unknown) date) hematocrit is unknown) holding stable and has slightly increased from her (unknown) (no (unknown) (unknown) This note may have (units (unknown) date) been all or unknown) partially generated using voice recognition (unknown) (no (unknown) (unknown) Tobacco + Substance (unit s (unknown) date) Use unknown) (unknown) (no (unknown) (unknown) Tobacco Status (units (unknown) date) unknown) (unknown) (no (unknown) (unknown) Visit Reasons: GI (units (unknown) date) bleed, afib, left unknown) AMA 10 (unknown) (no (unknown) (unknown) Vital signs are (units (unknown) date) reported, charted unknown) and reviewed with patient. 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 A prescription for (unknown) (no (unknown) (unknown) and initiated for (units (unknown) date) supplementation to unknown) assist with recovery. She will follow back (unknown) (no (unknown) (unknown) anginal like (units (un known) date) symptoms but does unknown) have exertional fatigue complicated by her severe (unknown) (no (unknown) (unknown) asthma, (units (unkno wn) date) uncomplicated unknown) (unknown) (no (unknown) (unknown) been sleeping (units ( unknown) date) poorly and unknown) potentially also has sleep apnea (unknown) (no (unknown) (unknown) calories, I27.20 - (units (unknown) date) Pulmonary unknown) hypertension, unspecified, I48.20 - Chronic atrial (unknown) (no (unknown) (unknown) caps 01/02/22 [Rx (units (unknown) date) Confirmed 02/05/22] unknown) (unknown) (no (unknown) (unknown) clobetasol 0.05 % (units (unknown) date) scalp solution 1 unknown) applic topical BEDTIME #25 mL 03/03/21 [Rx (unknown) (no (unknown) (unknown) concerns that were (units (unknown) date) told to MA. unknown) (unknown) (no (unknown) (unknown) contentious on (units (unknown) date) interventions unknown) throughout her hospital stay for the discharge (unknown) (no (unknown) (unknown) digoxin 250 mcg (units (unknown) date) (0.25 mg) tablet 250 unknown) mcg PO DAILY #90 tabs 02/05/22 [Rx (unknown) (no (unknown) (unknown) digoxin 250 mcg PO (units (unknown) date) DAILY 90 tabs 0RF unknown) (unknown) (no (unknown) (unknown) digoxin (units (unkno wn) date) unknown) (unknown) (no (unknown) (unknown) discharge a week (units (unknown) date) ago. B12 folic acid unknown) as well as iron levels will be recheck it (unknown) (no (unknown) (unknown) during her (units (unk nown) date) hospitalization of unknown) hypoxia which delayed her EGD for exploratory (unknown) (no (unknown) (unknown) evaluation regards (units (unknown) date) to potential upper unknown) GI bleed. (unknown) (no (unknown) (unknown) ferrous gluconate (units (unknown) date) 324 mg (38 mg iron) unknown) tablet 324 mg PO DAILY #90 tabs 02/05/22 (unknown) (no (unknown) (unknown) ferrous gluconate (units (unknown) date) 324 mg PO DAILY 90 unknown) tabs 1RF (unknown) (no (unknown) (unknown) fibrillation, (units ( unknown) date) hypoxia in new unknown) troubles with incontinence. The patient did not (unknown) (no (unknown) (unknown) fibrillation, (units ( unknown) date) unspecified, J44.9 - unknown) Chronic obstructive pulmonary disease, (unknown) (no (unknown) (unknown) fibrillation, (units ( unknown) date) unspecified, K92.2 - unknown) Gastrointestinal hemorrhage, unspecified (unknown) (no (unknown) (unknown) fibrillation. 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 She continues unknown) to smoke despite having comorbid issues (unknown) (no (unknown) (unknown) grass pollen (units (u nknown) date) Allergy (Verified unknown) 02/05/22 14:16) (unknown) (no (unknown) (unknown) have occurred. 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 and (unknown) (no (unknown) (unknown) hypertension, (units ( unknown) date) I27.81 - Cor unknown) pulmonale (chronic), I48.20 - Chronic atrial (unknown) (no (unknown) (unknown) improvement of (units (unknown) date) overall health was unknown) reviewed with the patient as well as a small (unknown) (no (unknown) (unknown) inflicted we (units (u nknown) date) discussed issues unknown) related to taking charge of her medical setbacks (unknown) (no (unknown) (unknown) inhalation Q8H (units (unknown) date) #12.9 grams 01/25/22 unknown) [Rx Confirmed 02/05/22] (unknown) (no (unknown) (unknown) ipratropium bromide (unit s (unknown) date) 17 mcg/actuation HFA unknown) aerosol inhaler (Atrovent HFA) 2 puff (unknown) (no (unknown) (unknown) lavender (Lavandula (unit s (unknown) date) angustifolia) unknown) Allergy (Verified 02/05/22 14:16) (unknown) (no (unknown) (unknown) may occur. (units (unk nown) date) Occasional unknown) wrong-word or 'sound-alike' substitutions may have (unknown) (no (unknown) (unknown) metoprolol tartrate (unit s (unknown) date) 50 mg tablet unknown) (Lopressor) 50 mg PO TID 30 days #90 tabs (unknown) (no (unknown) (unknown) mometasone furoate (units (unknown) date) [From NASONEX] unknown) Allergy (Unknown, Verified 02/05/22 14:16) (unknown) (no (unknown) (unknown) occurred due to the (unit s (unknown) date) inherent limitations unknown) of voice recognition software. Please (unknown) (no (unknown) (unknown) patient continues (units (unknown) date) to have respiratory unknown) issues with exertional fatigue in (unknown) (no (unknown) (unknown) pine tanya Allergy (units (unknown) date) (Severe, Uncoded unknown) 02/05/22 14:16) (unknown) (no (unknown) (unknown) potential strategy (units (unknown) date) for alternative unknown) anticoagulation given her history of this (unknown) (no (unknown) (unknown) puncture 1 cap (units (unknown) date) using device; one unknown) dose = 2 inhalations 1 cap inhalation DAILY (unknown) (no (unknown) (unknown) quit status: has (units (unknown) date) quit before unknown) (unknown) (no (unknown) (unknown) rales or rhonchi, (units (unknown) date) good peripheral unknown) pulses (unknown) (no (unknown) (unknown) read the note (units ( unknown) date) carefully and unknown) recognize, using context, where these substitutions (unknown) (no (unknown) (unknown) recent bleed. She (units (unknown) date) will continue to unknown) monitor at home (unknown) (no (unknown) (unknown) secondary to (units (u nknown) date) decrease use unknown) ibuprofen wall on anticoagulation for atrial (unknown) (no (unknown) (unknown) several units of (units (unknown) date) blood for unknown) transfusion. On today's visit 1 week after discharge (unknown) (no (unknown) (unknown) severe sinus (units (u nknown) date) congestion unknown) (unknown) (no (unknown) (unknown) sinus swelling, (units (unknown) date) trouble breathing unknown) (unknown) (no (unknown) (unknown) sleep apnea (adult) (unit s (unknown) date) (pediatric) unknown) (unknown) (no (unknown) (unknown) sleep apnea (units (un known) date) referral will be unknown) undertaken today (unknown) (no (unknown) (unknown) snoring and daytime (unit s (unknown) date) somnolence no unknown) observed occurrences of apneic episodes heard (unknown) (no (unknown) (unknown) software. 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 (units (unkno wn) date) unknown) (unknown) (no (unknown) (unknown) supplement. The (units (unknown) date) patient would unknown) benefit from referral to pulmonology, (unknown) (no (unknown) (unknown) tearful at times (units (unknown) date) unknown) (unknown) (no (unknown) (unknown) the potential for (units (unknown) date) improvement remains unknown) there are a few continues to have (unknown) (no (unknown) (unknown) throat closes, (units (unknown) date) cannot breathe unknown) (unknown) (no (unknown) (unknown) tiotropium bromide (units (unknown) date) (Spiriva with unknown) HandiHaler) (unknown) (no (unknown) (unknown) tiotropium bromide (units (unknown) date) 18 mcg capsule with unknown) inhalation device (Spiriva with (unknown) (no (unknown) (unknown) to smoke despite (units (unknown) date) his obvious ill unknown) affects and contributing factor. Patient has (unknown) (no (unknown) (unknown) tolterodine 2 mg (units (unknown) date) capsule,extended unknown) release 24 hr (Detrol LA) 2 mg PO BEDTIME #90 (unknown) (no (unknown) (unknown) unspecified (units (un known) date) unknown) (unknown) (no (unknown) (unknown) up with a (units (unkn own) date) solutions analyst unknown) as noted (unknown) (no (unknown) (unknown) varenicline (units (un known) date) (Chantix Continuing unknown) Month Box) 1 mg PO BID 56 tabs 1RF (unknown) (no (unknown) (unknown) varenicline (units (un known) date) (Chantix Starting unknown) Month Box) PO PER PKG DIR 53 ea 0RF (unknown) (no (unknown) (unknown) varenicline 0.5 mg (units (unknown) date) (11)-1 mg (42) unknown) tablets in a dose pack (Chantix Starting Month (unknown) (no (unknown) (unknown) varenicline 1 mg (units (unknown) date) tablet (Chantix unknown) Continuing Month Box) 1 mg PO BID #56 tabs (unknown) (no (unknown) (unknown) waking up in a (units (unknown) date) panic, out of breath unknown) and having problem sleeping are some Result panel 92 (unknown) (no date) (unknown) (unknown) > 1000 pg/ml (unkn own) (unknown) (no date) (unknown) (unknown) > 60 ml/min (unkn own) (unknown) (no date) (unknown) (unknown) > 60 ml/min (unkn own) (unknown) (no date) (unknown) (unknown) 0.65 mg/dl (unkn own) (unknown) (no date) (unknown) (unknown) 0.8 mg/dl (unkn own) (unknown) (no date) (unknown) (unknown) 1.1 (units unknown) (unknown) (unknown) (no date) (unknown) (unknown) 101 mg/dl (unkn own) (unknown) (no date) (unknown) (unknown) 101 mg/dl (unkn own) (unknown) (no date) (unknown) (unknown) 141 mmol/l (unkn own) (unknown) (no date) (unknown) (unknown) 15 mg/dl (unkn own) (unknown) (no date) (unknown) (unknown) 208 iu/l (unkn own) (unknown) (no date) (unknown) (unknown) 23.1 (units unknown) (unknown) (unknown) (no date) (unknown) (unknown) 3.3 g/dl (unkn own) (unknown) (no date) (unknown) (unknown) 3.6 g/dl (unkn own) (unknown) (no date) (unknown) (unknown) 3.8 mmol/l (unkn own) (unknown) (no date) (unknown) (unknown) 31 mmol/l (unkn own) (unknown) (no date) (unknown) (unknown) 44 iu/l (unkn own) (unknown) (no date) (unknown) (unknown) 6.9 g/dl (unkn own) (unknown) (no date) (unknown) (unknown) 77 u/l (unkn own) (unknown) (no date) (unknown) (unknown) 9.1 mg/dl (unkn own) (unknown) (no date) (unknown) (unknown) 99 mmol/l (unkn own) Social History date description facility +0000 Smokes tobacco daily (finding) [facility] Vital Signs date measurement value units +0000 BMI BMI 43.4 kg/m2 +0000 BP_diastolic BP_diastolic 76 mmHg +0000 BP_systolic BP_systolic 129 mmHg +0000 heart_rate heart_rate 89 /min +0000 height_metric height_metric 172.72 cm +0000 height_standard height_standard 68 in +0000 weight_metric weight_metric 129.501 g_ code +0000 weight_standard weight_standard 129.501 g_code
[2022-02-07] MEDS ORDERED: diltiaZEM INJ 5 MG/ML VIAL IVP STA (17:25)
[2022-02-07 17:41] LABS: BASOPHILS # (AUTO) 0.1 10^3/uL (0.0-0.1); BASOPHILS % (AUTO) 0.9 %; EOSINOPHILS # (AUTO) 0.2 10^3/uL (0.0-0.7); EOSINOPHILS % (AUTO) 1.9 %; HCT - HEMATOCRIT 30.1 % (37.0-47.0); HGB - HEMOGLOBIN 8.3 g/dL (12.0-16.0); LYMPHOCYTES % (AUTO) 16.5 %; MEAN CORPUSCULAR HEMOGLOBIN 23.8 pg (27.0-31.0); MEAN CORPUSCULAR HGB CONC 27.6 g/dL (32.0-36.0); MEAN CORPUSCULAR VOLUME 86.2 fL (81.0-99.0); MEAN PLATELET VOLUME 9.3 fL (7.9-10.8); MONOCYTES # (AUTO) 0.9 10^3/uL (0.0-1.0); MONOCYTES % (AUTO) 7.3 %; NEUTROPHILS % (AUTO) 72.8 %; NRBC ABSOLUTE COUNT (AUTO) 0.09 x10^3/uL; NUCLEATED RED BLOOD CELLS AUTO 0.7 /100WBC; PLT - PLATELET COUNT 553 10^3/uL (130-450); RED BLOOD COUNT 3.49 10^6/uL (4.20-5.40); RED CELL DISTRIBUTION WIDTH 20.1 % (12.0-15.0); WHITE BLOOD COUNT 12.4 x10^3/uL (4.8-10.8)
[2022-02-07] MEDS ORDERED: FUROSEMIDE 40 MG/4 ML VIAL IVP STA (17:44)
--- NOTE | 2022-02-07 17:44 | ED Physician Documentation ---
History of Present Illness - Stated complaint Stated Complaint: SOA - Chief complaint Chief Complaint: Resp - Additonal information Additional information: 56-year-old female presents emergency department for evaluation of dyspnea and shortness of air. She does have a history of atrial fibrillation (previously on xarelto), pulmonary HTN, COPD, CHF. She was reportedly at [facility] 01/21/2022 for melena and hemaemesis. She had an initial hgb of 3.9. She has not taken her Xarelto since that hospitalization. However while there she did receive 4 units of PRBCs. They attempted to do an EGD but it was not well- tolerated secondary to tachycardia. It was after this that she left the hospital AMA. Pt did see her pcp Dr. woo about 3 days ago. Reportedly started on Digoxin for rate control at that appointment. Chest x-ray at the time of the [facility] presentation visit did not show any findings to suggest pneumothorax, pneumonia or volume overload She reports that she is taking her metoprolol, spironolactone and digoxin but despite this she has been having progressive shortness of air. EMS was summoned to the house and on room air she had saturations in the mid 70s. She was transitioned to 6 L nasal cannula with a rise in her oxygen saturations to about 94% though she continued with modest dyspnea. She is denying any chest pain. On presentation she is in A. fib with a respiratory rate of about 24 and a heart rate irregular 130-140. Saturations decline to the very low 80s when stopping nasal cannula oxygen. Review of Systems Constitutional: denies: Fever, Chills Eyes: reports: Reviewed and negative Nose: reports: Reviewed and negative Cardiac: denies: Chest pain / pressure, Palpitations Respiratory: reports: Dyspnea, Cough, Wheezing. 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 - Present Medications Home Medications: Ambulatory Orders Medication Instructions Recorded Confirmed Lisinopril 20 mg PO DAILY 08/02/13 04/20/16 Albuterol Sulf [Ventolin Hfa 2 puffs INH Q4H PRN 04/18/16 04/20/16 Inhaler] Azithromycin [Zithromax] 250 mg ORAL DAILY 04/18/16 04/20/16 - Allergies Allergies/Adverse Reactions: Allergies Allergy/AdvReac Type Severity Reaction Status Date / Time Penicillins Allergy Unknown Verified 04/18/16 21:05 OTC nasal sprays AdvReac Respiratory Uncoded 04/18/16 21:05 - Social History Does the pt smoke?: Yes Smoking Status: Current every day smoker Does the pt drink ETOH?: Yes Does the pt have substance abuse?: No - Immunizations Immunizations are current?: Yes - POLST Patient has POLST: No PD ED PE EXPANDED - General General: Alert, Other (Appears chronically ill) - Neck Neck: Supple w/out meningeal sx. No: Adenopathy - Cardiac Cardiac: Irregularly irregular, Murmur Present, Radial strong equal, Pedal strong equal, Cap refill < 2 sec - Respiratory Respiratory: Labored, Rhonchi - Abdomen Abdomen: Normal Bowel sounds. No: Tender to palpation - Back Back: Normal exam - Derm Derm: Normal color, Warm and dry. No: Rash - Extremities Extremities: Normal, Pedal Pulses Present. No: Deformity, Tenderness, Pedal edema bilateral (perhaps scant abdominal tendereness) - Neuro Neuro: Alert and Oriented X 3, CNII-XII intact - GCS Eye Opening: Spontaneous Motor: Obeys Commands Verbal: Oriented Total: 15 Results - Vitals Vitals: Vital Signs - 24 hr 02/07/22 02/07/22 02/07/22 17:16 17:50 18:20 Temperature 37.2 C Heart Rate 131 H 122 H 124 H Respiratory 18 21 25 H Rate Blood Pressure 100/86 H 102/79 136/88 H O2 Saturation 99 95 96 If not protocol 6 6 : Oxygen Flow, liters/minute 02/07/22 02/07/22 02/07/22 18:30 18:51 19:00 Temperature Heart Rate 126 H 112 H 114 H Respiratory 23 22 21 Rate Blood Pressure 145/81 H 134/66 H O2 Saturation 95 96 If not protocol 6 7 7 : Oxygen Flow, liters/minute 02/07/22 02/07/22 02/07/22 19:30 19:39 19:42 Temperature Heart Rate 97 103 H 103 H Respiratory 24 22 23 Rate Blood Pressure 95/59 L 116/56 L 116/56 L O2 Saturation 90 L 92 93 If not protocol 4 4 4 : Oxygen Flow, liters/minute Oxygen O2 Source Nasal cannula Oxygen Flow Rate 6 - EKG (time done) 1710 Rate: Rate (enter#) (142) Rhythm: Atrial fibrillation [place]: RAD QRS: Low voltage Ischemia: Non specific changes Compare to prior EKG: Old EKG unavailable Computer interpretation: Agree with computer - Labs Labs: Laboratory Tests 02/07/22 02/07/22 02/07/22 17:36 17:36 17:36 WBC 12.4 H RBC 3.49 L Hgb 8.3 L Hct 30.1 L MCV 86.2 MCH 23.8 L MCHC 27.6 L RDW 20.1 H Plt Count 553 H MPV 9.3 Neut # (Auto) 9.0 H Lymph # (Auto) 2.0 Platte # (Auto) 0.9 Eos # (Auto) 0.2 Baso # (Auto) 0.1 Absolute Nucleated RBC 0.09 Nucleated RBC % 0.7 Manual Slide Review Indicated WBC Morphology NORMAL APPEARANCE Platelet Estimate INCREASED (>450,000) Platelet Morphology NORMAL APPEARANCE RBC Morph Micro Appear 1+ POLYCHROMASIA Sodium 140 Potassium 3.8 Chloride 98 L Carbon Dioxide 29 Anion Gap 13.0 BUN 11 Creatinine 0.8 Estimated GFR (MDRD) 75 L Glucose 109 H Calcium 9.8 Total Bilirubin 0.5 AST 25 ALT 91 H Alkaline Phosphatase 71 Troponin I High Sens B-Natriuretic Peptide 583 H Total Protein 7.1 Albumin 3.2 Globulin 3.9 Albumin/Globulin Ratio 0.8 L Lipase 72 H Nasal Adenovirus (PCR) Nasal B. parapertussis DNA (PCR) Nasal Coronavir 229E PCR Nasal Coronavir HKU1 PCR Nasal Coronavir NL63 PCR Nasal Coronavir OC43 PCR Nasal Enterovir/Rhinovir PCR Nasal Influenza B PCR Nasal Influenza A PCR Nasal Parainfluen 1 PCR Nasal Parainfluen 2 PCR Nasal Parainfluen 3 PCR Nasal Parainfluen 4 PCR Nasal RSV (PCR) Nasal B.pertussis DNA PCR Nasal C.pneumoniae (PCR) Eligio Human Metapneumo PCR Nasal M.pneumoniae (PCR) Nasal SARS-CoV-2 (PCR) Digoxin < 0.2 02/07/22 02/07/22 17:36 18:08 WBC RBC Hgb Hct MCV MCH MCHC RDW Plt Count MPV Neut # (Auto) Lymph # (Auto) Platte # (Auto) Eos # (Auto) Baso # (Auto) Absolute Nucleated RBC Nucleated RBC % Manual Slide Review WBC Morphology Platelet Estimate Platelet Morphology RBC Morph Micro Appear Sodium Potassium Chloride Carbon Dioxide Anion Gap BUN Creatinine Estimated GFR (MDRD) Glucose Calcium Total Bilirubin AST ALT Alkaline Phosphatase Troponin I High Sens 7.0 B-Natriuretic Peptide Total Protein Albumin Globulin Albumin/Globulin Ratio Lipase Nasal Adenovirus (PCR) NOT DETECTED Nasal B. parapertussis DNA (PCR) NOT DETECTED Nasal Coronavir 229E PCR NOT DETECTED Nasal Coronavir HKU1 PCR NOT DETECTED Nasal Coronavir NL63 PCR NOT DETECTED Nasal Coronavir OC43 PCR NOT DETECTED Nasal Enterovir/Rhinovir PCR DETECTED A Nasal Influenza B PCR NOT DETECTED Nasal Influenza A PCR NOT DETECTED Nasal Parainfluen 1 PCR NOT DETECTED Nasal Parainfluen 2 PCR NOT DETECTED Nasal Parainfluen 3 PCR NOT DETECTED Nasal Parainfluen 4 PCR NOT DETECTED Nasal RSV (PCR) NOT DETECTED Nasal B.pertussis DNA PCR NOT DETECTED Nasal C.pneumoniae (PCR) NOT DETECTED Eligio Human Metapneumo PCR NOT DETECTED Nasal M.pneumoniae (PCR) NOT DETECTED Nasal SARS-CoV-2 (PCR) NOT DETECTED Digoxin - Rads (name of study) cxr Radiology: Final report received (Diffuse prominent pulmonary markings. This could represent pulmonary edema. This could also be artifactual due to overlying soft tissues and positioning) PD MEDICAL DECISION MAKING - ED course Complexity details: reviewed results, re-evaluated patient, considered differential, d/w patient ED course: 56-year-old female presents to the emergency department for evaluation of worsening shortness of air and dyspnea. She does have a history of atrial fibrillation no longer on anticoagulation secondary to her history of recent GI bleed. Also has a history of COPD and active tobacco use. Not previously on oxygen. She was admitted to [facility] January 21 for upper GI bleed. While hospitalized she did receive 4 units of blood. Unfortunately the EGD attempted was nondiagnostic as it was not completed as patient did not tolerate it well due to excessive tachycardia. She subsequently then left AGAINST MEDICAL ADVICE. She saw her primary care provider 3 days ago for her congestive heart failure and was started on digoxin. Reportedly not hypoxic at the time of that Clinic visit but with worsening dyspnea EMS was summoned today and she was found to have saturations in the mid 70s on room air which increased to about 96% on 6 L nasal cannula. On presentation to the ER she was in A. fib with a heart rate of about 130. We were able to achieve modest heart rate control after she received a loading dose of digoxin as well as Cardizem and labetalol. Currently she remains in A. fib normotensive and a heart rate of about 100-1 15. A CBC was completed today in the emergency department. Her hemoglobin is about 8.3. This is not dramatically changed from the most recent hemoglobin at [facility]. Chest x-ray shows significant volume overload most consistent with CHF. X-ray interpreted at [facility] a few weeks ago was negative for such findings. Given this as well as the associated hypoxia patient was administered 40 mg of Lasix here in the emergency department and we have been able to titrate her oxygen down to 4 L. respiratory PCR + for rhinovirus She did present with some mild tachypnea and diffuse wheeze. In the setting of COPD I did give her 60 mg of prednisone as well as 1 single DuoNeb which did improve the wheeze though it was not fully resolved. This patient will need to be admitted to the hospital for further management of acute CHF exacerbation with COPD and hypoxia. I have spoken with Dr. Cristina the telemetry hospitalist who has agreed to evaluate the patient. - Critical Care Time(min): 15 Time Includes: Direct patient care, Review records, Reassess patient Data interpretation: Labs, CXR Departure - Departure Disposition: 66 [facility] DC/Xfer Clinical Impression: Acute respiratory failure with hypoxia, COPD exacerbation, History of GI bleed, Rhinovirus infection CHF (congestive heart failure) Qualifiers: Heart failure type: unspecified Heart failure chronicity: chronic Qualified Code(s): I50.9 - Heart failure, unspecified Anemia Qualifiers: Anemia type: unspecified type Qualified Code(s): D64.9 - Anemia, unspecified Atrial fibrillation Qualifiers: Atrial fibrillation type: longstanding persistent Qualified Code(s): I48.11 - Longstanding persistent atrial fibrillation
--- NOTE | 2022-02-07 17:51 | XRAY Report ---
PROCEDURE: Chest 1 View X-Ray INDICATIONS: SOA TECHNIQUE: One view of the chest was acquired. COMPARISON: None. FINDINGS: Surgical changes and devices: None. Lungs and pleura: No pleural effusions or pneumothorax. No consolidation identified. Views prominenc e of the pulmonary markings. Mediastinum: Mediastinal contours appear normal. Heart size is normal. Bones and chest wall: No suspicious bony lesions. Overlying soft tissues appear unremarkable. IMPRESSION: Diffuse prominent pulmonary markings. This could represent pulmonary edema. This could also be artifa ctual due to overlying soft tissues and positioning. Two-view chest radiograph may be helpful for further evaluation. Reviewed by: Luis Angel Trujillo MD on 02/07/2022 4:49 PM GUILLE Approved by: Luis Angel Trujillo MD on 02/07/2022 4:49 PM GUILLE Station ID: [id number]
[2022-02-07 18:03] LABS: ALBUMIN 3.2 g/dL (3.2-5.5); ALBUMIN/GLOBULIN RATIO 0.8 (1.0-2.2); ALKALINE PHOSPHATASE 71 IU/L (42-121); ALT ALANINE AMINOTRANSFERASE 91 IU/L (10-60); AST ASPARTATE AMINOTRANSFERASE 25 IU/L (10-42); BILIRUBIN,TOTAL 0.5 mg/dL (0.2-1.0); BUN - BLOOD UREA NITROGEN 11 mg/dL (6-20); CALCIUM 9.8 mg/dL (8.5-10.3); CARBON DIOXIDE - CO2 29 mmol/L (21-32); CHLORIDE 98 mmol/L (101-111); CREATININE 0.8 mg/dL (0.4-1.0); GFR - MDRD 75 (>89); GLUCOSE 109 mg/dL (70-100); LIPASE 72 U/L (22-51); POTASSIUM 3.8 mmol/L (3.5-5.0); SODIUM 140 mmol/L (135-145); TOTAL PROTEIN 7.1 g/dL (6.7-8.2)
[2022-02-07 18:06] LABS: DIGOXIN < 0.2 ng/mL
[2022-02-07 18:07] LABS: PLATELET ESTIMATE, MANUAL INCREASED (>450,000) (NORMAL); PLATELET MORPHOLOGY NORMAL APPEARANCE (NORMAL); SLIDE REVIEW? Indicated
[2022-02-07 18:08] LABS: WBC MORPHOLOGY (MULTIPLE) NORMAL APPEARANCE (NORMAL)
[2022-02-07] MEDS ORDERED: DIGOXIN 500 MCG/2 ML AMP IVP STA (18:08)
[2022-02-07] MEDS ORDERED: IPRATROPIUM 0.2 MG/ML NEB INH STA (18:29)
[2022-02-07] MEDS ORDERED: ALBUTEROL NEB 2.5 MG/3 ML INH STA (18:29)
[2022-02-07] MEDS ORDERED: predniSONE 20 MG TABLET PO STA (18:30)
[2022-02-07] MEDS ORDERED: MAGNESIUM SULFATE 2 GRAM 2 GM/50 ML BAG IV ONE (18:31)
[2022-02-07] MEDS ORDERED: METOPROLOL 5 MG/5 ML VIAL IVP STA (18:43)
[2022-02-07 19:13] LABS: B. PARAPERTUSSIS- RESP PCR PAN NOT DETECTED; B. PERTUSSIS- RESP PCR PANEL NOT DETECTED; C. PNEUMONIAE- RESP PCR PANEL NOT DETECTED; CORONAVIRUS 229E-RESP PCR NOT DETECTED; CORONAVIRUS HKU1-RESP PCR NOT DETECTED; CORONAVIRUS NL63-RESP PCR NOT DETECTED; CORONAVIRUS OC43-RESP PCR NOT DETECTED; HUMAN METAPNEUMOVIRUS NOT DETECTED; INFLUENZA A- RESP PCR PANEL NOT DETECTED; INFLUENZA B - RESP PCR PANEL NOT DETECTED; M. PNEUMONIAE- RESP PCR PANEL NOT DETECTED; PARAINFLUENZA VIRUS 1 NOT DETECTED; PARAINFLUENZA VIRUS 2 NOT DETECTED; PARAINFLUENZA VIRUS 3 NOT DETECTED; PARAINFLUENZA VIRUS 4 NOT DETECTED; RHINOVIRUS/ENTEROVIRUS DETECTED; RSV- RESP PCR PANEL NOT DETECTED; SARS-CoV-2 -RESP PCR PANEL NOT DETECTED
[2022-02-07] MEDS ORDERED: SODIUM CHLORIDE FLUSH 0.9% 10 ML SYRINGE IVP PRN (19:58)
--- NOTE | 2022-02-07 20:20 | HISTORY & PHYSICAL EXAMINATION ---
Chief Complaint - Chief Complaint Chief Complaint: Dyspnea History of Present Illness - History of Present Illness HPI Comment/Other: 56 y old female with PMH HTN, CHF, Atrial fibrillation, COPD , Pulmonary HTN, GI bleeding, blood loss anemia BIBA due to shortness of breath for last 2 weeks which was progressively getting worse. Pt also c/o cough, wheezing. Denies fever, chest pain, nausea, vomiting, diarrhea , constipation, hematemesis or melena. As per EMS, her Sao2 was 70.She was put on oxugen 6L. On presentaion to the ER, she was tachycardic, tachypnic, and hypoxic, Labs showed leukocytosis, BNP 584. CXR showed pulmonary edema In ER, pt was given nebs, iv steroids, IV metoprolol, cardizem and lasix. She is currently on Oxygen 4L NC, Sao2 92% Pt was recently admitted in outside hospital on 01/21 due to GI bleed and caute blood loss anemia for which she required 4 units of PRBC. She left AMA on 01/24. She used to be on xarelto but currently she is not taking xarelto due to recent GI bleed Pt is bening admitted due to COPD and CHF exacerbation with hypoxia, Atrial fib with RVR. 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 - POLST Patient has POLST: No Meds/Allgy - Home Medications Home Medications: Ambulatory Orders Medication Instructions Recorded Confirmed Lisinopril 20 mg PO DAILY 08/02/13 04/20/16 Albuterol Sulf [Ventolin Hfa 2 puffs INH Q4H PRN 04/18/16 04/20/16 Inhaler] Azithromycin [Zithromax] 250 mg ORAL DAILY 04/18/16 04/20/16 - Allergies Allergies/Adverse Reactions: Allergies Allergy/AdvReac Type Severity Reaction Status Date / Time Penicillins Allergy Unknown Verified 04/18/16 21:05 OTC nasal sprays AdvReac Respiratory Uncoded 04/18/16 21:05 Review of Systems - Cardiovascular Cariovascular: reports: Irregular heart rate, Palpitations - Respiratory Respiratory: reports: Cough, Wheezing, SOB at rest - Other Findings Other Findings: 12 point system were reviewed and were negative except mentioned in HPI Exam - Vital Signs Vital Signs: Vital Signs x48h Temp Pulse Resp BP Pulse Ox O2 Flow Rate 02/07/22 19:42 103 H 23 116/56 L 93 4 02/07/22 19:39 103 H 22 116/56 L 92 4 02/07/22 19:30 97 24 95/59 L 90 L 4 02/07/22 19:00 114 H 21 134/66 H 96 7 02/07/22 18:51 112 H 22 7 02/07/22 18:30 126 H 23 145/81 H 95 6 02/07/22 18:20 124 H 25 H 136/88 H 96 6 02/07/22 17:50 122 H 21 102/79 95 6 02/07/22 17:16 37.2 C 131 H 18 100/86 H 99 - Physical Exam General Appearance: positive: No acute distress, Alert Eyes Bilateral: positive: Normal inspection ENT: positive: ENT inspection nml Neck: positive: Nml inspection Respiratory: positive: Wheezes, Rales Cardiovascular: positive: Irregularly irregular, Tachycardia Abdomen: positive: Non-tender, Nml bowel sounds, No distention Skin: positive: No rash Extremities: positive: Pedal edema Neurologic/Psychiatric: positive: Oriented x3, Motor nml, Sensation nml Conclusion/Plan - Lab Results Fish Bones: 02/07/22 17:36 02/07/22 17:36 - Other Other Results/Comments: A: Acute respiratory failure with Hypoxia COPD exacerbation Acute on chronic CHF exacerbation, unspecified,EF unknown Possible pneumonia Leukocytosis Atrial fib with RVR Pulmonary HTN Morbid obesity H/O recent hematemesis and melena, acute blood loss anemia, Not on anticoagulation Plan: Admit in tele Oxygen via NC to keep Sao2 92% Solumedrol 40 mg iv q6h Dual nebs q6h Start rocephin 1 gram iv daily and zithromax 500 mg iv daily Lasix 40 mg iv q12h Cont metoprolol, lisinopril, spironolactone and dig Monitor I/O, electrolytes Supportive care DVT prophylaxic SCD Full code Pt will be admitted as inpatient as more than 2 midnight stay is expected
[2022-02-07] MEDS ORDERED: FUROSEMIDE 40 MG/4 ML VIAL IVP SCH (21:00)
[2022-02-07] MEDS: methylPREDNISolone SUCCINATE 40 MG/ML VIAL IVP SCH (21:40)
[2022-02-07] MEDS: METOPROLOL TARTRATE 50 MG TABLET PO SCH (21:40)
[2022-02-07] MEDS ORDERED: cefTRIAXone 1 GM in SODIUM CHLORIDE 0.9% MINIBAG 100 ML IV SCH (23:00)
[2022-02-07] MEDS ORDERED: AZITHROMYCIN INJ 500 MG in SODIUM CHLORIDE 0.9% 250 ML IV SCH (23:00)
[2022-02-07] MEDS: SODIUM CHLORIDE FLUSH 0.9% 10 ML SYRINGE IVP SCH (23:46)
[2022-02-08] MEDS: methylPREDNISolone SUCCINATE 40 MG/ML VIAL IVP SCH ×2 (02:43→08:37)
[2022-02-08] MEDS ORDERED: FUROSEMIDE 40 MG/4 ML VIAL IVP SCH (06:00)
[2022-02-08] MEDS: IPRATROPIUM/ALBUTEROL 3 ML NEB INH SCH ×2 (06:22→07:29)
[2022-02-08 08:21] LABS: BASOPHILS % (AUTO) 0.1 %; HCT - HEMATOCRIT 33.4 % (37.0-47.0); HGB - HEMOGLOBIN 9.4 g/dL (12.0-16.0); LYMPHOCYTES # (AUTO) 0.5 10^3/uL (1.5-3.5); MEAN CORPUSCULAR HGB CONC 28.1 g/dL (32.0-36.0); MEAN CORPUSCULAR VOLUME 85.2 fL (81.0-99.0); MEAN PLATELET VOLUME 9.3 fL (7.9-10.8); MONOCYTES # (AUTO) 0.1 10^3/uL (0.0-1.0); MONOCYTES % (AUTO) 0.7 %; NEUTROPHILS # (AUTO) 7.7 10^3/uL (1.5-6.6); NEUTROPHILS % (AUTO) 92.2 %; NRBC ABSOLUTE COUNT (AUTO) 0.04 x10^3/uL; NUCLEATED RED BLOOD CELLS AUTO 0.5 /100WBC; PLT - PLATELET COUNT 534 10^3/uL (130-450); RED BLOOD COUNT 3.92 10^6/uL (4.20-5.40); RED CELL DISTRIBUTION WIDTH 20.4 % (12.0-15.0); WHITE BLOOD COUNT 8.3 x10^3/uL (4.8-10.8)
[2022-02-08 08:24] LABS: SLIDE REVIEW? Indicated
[2022-02-08 08:26] LABS: CALCIUM 9.5 mg/dL (8.5-10.3); CREATININE 0.8 mg/dL (0.4-1.0); POTASSIUM 3.8 mmol/L (3.5-5.0)
[2022-02-08] MEDS: METOPROLOL TARTRATE 50 MG TABLET PO SCH (08:36)
[2022-02-08] MEDS: SODIUM CHLORIDE FLUSH 0.9% 10 ML SYRINGE IVP SCH (08:36)
[2022-02-08 08:47] LABS: RBC MORPHOLOGY (MULTIPLE) 3+ ANISOCYTOSIS (NORMAL)
--- NOTE | 2022-02-08 08:54 | PHARMACY PROGRESS NOTE ---
- Best Possible Medication History Admit Date and Time: 02/07/221957 Processed by: Pharmacy Medication History completed: Yes Patient Interview: Completed Secondary Source(s): Pharmacy records, Insurance records As the person ultimately responsible for medication therapy, providers are able to order a medication from an existing home medication list in [facility] via the "Reconcile Routine" prior to Confirmation of that medication by dealer support technician. Such practice is discouraged except when the physician, in their clinical judgment, deems that a medical need exists for a medication without regard to previous use.
[2022-02-08] MEDS ORDERED: SPIRONOLACTONE 25 MG TABLET PO SCH (09:00)
[2022-02-08] MEDS ORDERED: DIGOXIN 125 MCG TABLET PO SCH (09:00)
[2022-02-08] MEDS ORDERED: lisinopriL 5 MG TABLET PO SCH (09:00)
[2022-02-08 09:14] LABS: ABG PCO2 47 mmHg (34-45); ABG PH 7.45 (7.35-7.45); ABG PO2 63 mmHg (80-100)
[2022-02-08 09:15] LABS: ABG BASE EXCESS 6.9 mmol/L (-2.0-3.0); ABG HCO3 31.8 mmol/L (22.0-26.0); ABG OXYGEN SATURATION 91 % (94-98); ABG TCO2 33.2 MMOL/L (21.0-29.0); ALLEN TEST POSITIVE
--- NOTE | 2022-02-08 09:52 | XRAY Report ---
PROCEDURE: Chest 2 View X-Ray INDICATIONS: [facility] admit cxr and this recommended TECHNIQUE: 2 view(s) of the chest. COMPARISON: None. FINDINGS: Surgical changes and devices: None. Lungs and pleura: No pleural effusions or pneumothorax. No consolidation is identified. Minimally pr ominent pulmonary markings, decreased. Mediastinum: Mediastinal contours are normal. Heart size is normal. Bones and chest wall: No suspicious bony abnormalities. Soft tissues appear unremarkable. IMPRESSION: Minimally prominent pulmonary markings. This is decreased compared to yesterday. This could represent pulmonary vascular engorgement. No pleural effusion seen. Reviewed by: Luis Angel Trujillo MD on 02/08/2022 8:50 AM GUILLE Approved by: Luis Angel Trujillo MD on 02/08/2022 8:50 AM GUILLE Station ID: [id number]
--- NOTE | 2022-02-08 11:57 | Discharge Plan ---
Discharge Plan Problem Reviewed?: Yes Disposition: Home, Self Care Condition: Fair Prescriptions: Furosemide [Lasix] 20 mg PO DAILY #5 tablet lisinopriL [Zestril] 5 mg PO DAILY #30 tab Azithromycin [Zithromax] 250 mg PO DAILY #4 tablet Diet: Low Sodium Activity Restrictions: Activity as Tolerated Shower Restrictions: No Driving Restrictions: No Health Concerns: You were brought in by ambulance to our emergency room because you were very very short of breath. The ambulance found you to be in a very rapid heart rate called atrial fibrillation. The heart rate was out of control and making you go into congestive heart failure. You also have a history of emphysema and are a current every day smoker. So your lungs and your heart were not working very well in the emergency room. Overnight you received antibiotics for possible lung infection. You had 2 chest x-rays and neither one of them showed pneumonia but did show congestion of your lung vessels indicating congestive heart failure. The second chest xray was improved from the first. However there are studies that show that if in emphysema patients gets antibiotics for a while it tends to prevent them from coming back to the hospital. You also received medications to slow down your heart rate. At home you take digoxin and Toprol- XL. Those are the medicines that slowed down your heart rate. You also shared with me that you used to take Eliquis for your atrial fibrillation. Eliquis would reduce the risk of stroke from atrial fibrillation. But since you had a recent gastrointestinal bleed resulting in hospitalization at [facility], you have been asked to stop taking your Eliquis. Plan of Treatment: 1. Please discuss with your primary care provider what to do about reducing risk of stroke from atrial fibrillation now that you can no longer take Eliquis. 2. I am sending you home with 4 more days of azithromycin antibiotic for any possible lung infection you may have. You do not have pneumonia, at most it may be bronchitis. 3. You have congestive heart failure and atrial fibrillation. The fast atrial fibrillation made your congestive heart failure worse. I am sending you home on your same medications. Make sure you keep on taking them to slow down your heart rate. Particularly the metoprolol. I have also added something called Zestril, to help your heart work less hard. I have also given you 5 days of Lasix to take when you get home. Is a water pill. Do not take your chlorthalidone for the 5 days you are taking Lasix. Your primary care provider may opt to stop that. The only other advice I have has to do with chlorthalidone and spironolactone. Sometimes those 2 drugs, when taken together, can cause a metabolic disorder called "contraction alkalosis". Contraction alkalosis can actually destabilize your emphysema and make you breathe slower. Ask your primary care provider if chlorthalidone could be substituted by Lasix. The congestive heart failure and atrial fibrillation rate have made you have a low oxygen level. So I am sending you home on 2 L of oxygen by nasal cannula. In a month or 2, have your doctor we evaluate you on room air to see if you still need the oxygen. 4. Finally, you left [facility] AGAINST MEDICAL ADVICE because you did not like how they were taking care of you. Nevertheless you were having an upper GI bleed. Please make sure your primary care provider follows through on figuring out why you had the upper GI bleed. Care Goals: To stabilize your heart and lungs so that you do not have to come back to the hospital Assessment: Patient is alert, oriented, states that she makes her own decisions at this time, and she will follow through No Smoking: If you smoke, Please STOP! Call for help. Follow-up with: KERRIE ALVARADO, [Primary Care Provider] -
--- NOTE | 2022-02-08 12:08 | DISCHARGE SUMMARY ---
"Discharge Summary Admit Date: 02/07/22 Discharge Date: 02/08/22 Discharging Provider: Janna Back MD Primary Care Provider: Chung Mcdonald DO Code Status: Do Not Attempt Resuscitation Condition at Discharge: Fair Discharge Disposition: 01 Home, Self Care - DIAGNOSES Discharge Diagnoses with Status of Each Condition: 1. Acute respiratory failure with hypoxia 2. COPD exacerbation 3. Acute on chronic congestive heart failure with unspecified ejection fraction 4. Leukocytosis 5. Atrial fibrillation with rapid ventricular response 6. Pulmonary hypertension 7. Morbid obesity 8. History of upper GI bleed last week 9. History of acute blood loss anemia last week - HPI History of Present Illness: 56 y old female with PMH HTN, CHF, Atrial fibrillation, COPD , Pulmonary HTN, GI bleeding, blood loss anemia BIBA due to shortness of breath for last 2 weeks which was progressively getting worse. Pt also c/o cough, wheezing. Denies fever, chest pain, nausea, vomiting, diarrhea , constipation, hematemesis or melena. As per EMS, her Sao2 was 70.She was put on oxugen 6L. On presentaion to the ER, she was tachycardic, tachypnic, and hypoxic, Labs showed leukocytosis, BNP 584. CXR showed pulmonary edema In ER, pt was given nebs, iv steroids, IV metoprolol, cardizem and lasix. She is currently on Oxygen 4L NC, Sao2 92% Pt was recently admitted in outside hospital on 01/21 due to GI bleed and caute blood loss anemia for which she required 4 units of PRBC. She left AMA on 01/24. She used to be on xarelto but currently she is not taking xarelto due to recent GI bleed Pt is bening admitted due to COPD and CHF exacerbation with hypoxia, Atrial fib with RVR. 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 The first x-ray did not have any infiltrate. But she had diffuse prominent pulmonary markings that could represent possible pulmonary edema or artifact from overlying soft tissue and posture. I repeated her chest x-ray is a 2 view and she had minimally prominent pulmonary markings. Decreased from the previous chest x-ray. This could represent pulmonary vascular engorgement that had improved. - HOSPITAL COURSE Hospital Course: The patient was placed on IV antibiotics, steroids were given, and rate lowering drugs with a diuretic. She improved to the point that the next morning she said that she felt that she was much better and wanted to go home. I asked her to please stay another day but she really felt adamant that she wanted to go. Although she is improved much more quickly than we thought she was going to, she could still stand to use a little bit more treatment of lungs and CHF. Her shortness of breath was improved. She was able to ambulate in her room to go to the bathroom without assist. She was able to get up and stand at the sink and wash her hands without assist. She was mildly tachypneic with that. She was hypoxic at room air at rest with O2 sats of 87%. On 2 L oxygen at rest her O2 sats were 93%. With exertion on 2 L her O2 sats were 91%. As such I am orderin g home oxygen to treat her hypoxemia from her COPD at 2 L/min nasal cannula. We do not know her ejection fraction. But she is on medications for congestive heart failure which include metoprolol, spironolactone, chlorthalidone, and Lanoxin. Norvasc may be for hypertension control. On blood gas, her ABG on 2 L nasal cannula showed pH of 7.45, PCO2 47, and PO2 of 63. Base excess is 6.9. She may have contraction alkalosis which is driving down her respiratory rate ever so slightly. I am wondering if chlorthalidone can be discontinued and spironolactone continued. 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 Again, I do not know her ejection fraction. I did attempt to get medical records from [facility] but those were not available by the time of this dictation. I did add lisinopril. I explained to the patient that her medication list will be adjusted by her primary care provider. I did also give her a week of Lasix. I have asked her not to take a chlorthalidone for that week. I have also added 4 more days of azithromycin to help with any lung infection she may have. The first chest x-ray on admission had an overlay of technique on it. In other words breath was not expanded diaphragm was not down and she may been slouching. I repeated the chest x-ray and it was much better the second time around on the first time around. She did not want to take steroids at home. I did ask her to address her stroke risk with regards to atrial fibrillation. I so understand that she cannot take Eliquis because of her recent GI bleed. But I explained that sometimes people go back on Eliquis a few weeks if not months after a GI bleed if the GI bleed cause is felt to be adequately treated and no longer causing risk to the patient. She states that her GI bleed was from nonsteroidal induced ulcer/gastritis.Finally, I asked her to please stop smoking. I made her pinky swear with me and she promised to try. The patient is ambulating in her room. Slightly tachypneic at 24 when she does that. She goes back down to baseline at 20 with sitting and speaking to me. No use of accessory muscles. At rest her heart rate goes down to 86. With walking more than 25 to 30 feet her heart rate can go up to 140. So she still has a way to go to control her heart rate. Blood pressure is 111/59. Respirations are 20. She is 95% saturated on 2 L. She is a morbidly obese female who is alert, oriented to person place and time. No slurred speech. No tripoding. She is 5 foot 8 inches tall and weighs 127 kg. Lungs have coarse upper airway rhonchus sounds but no true rhonchi crackles or wheezing. She has an irregular rate and rhythm. And abdomen that is obese, soft, nontender. Extremities with ankle trace edema. Greater than 30 minutes was spent coordinating discharge. An extended length of, time was spent discussing CODE STATUS. When she was admitted she was a full code. At the time of discharge she stated that she has a good quality of life, really loves her family, but is realizing that her heart and lungs may diminished the quality of her life as time goes on. Although she is going to try and stop smoking and be compliant with medications she does not know how much better she would physically improve. As such she knows that she wants to be a DO NOT RESUSCITATE. While she is willing to undergo blood transfusions, surgeries, admissions to the hospital for short-term duration, she does not want to be intubated or receive CPR. - ALLERGIES Allergies/Adverse Reactions: Allergies Allergy/AdvReac Type Severity Reaction Status Date / Time Penicillins Allergy Unknown Verified 04/18/16 21:05 OTC nasal sprays AdvReac Respiratory Uncoded 04/18/16 21:05 - MEDICATIONS Home Medications: Ambulatory Orders Medication Instructions Recorded Confirmed Albuterol Sulfate [Proair 2 puffs INH Q4H PRN 02/08/22 02/08/22 Digihaler] Amlodipine Besylate [Norvasc] 10 mg PO DAILY 02/08/22 02/08/22 Azithromycin [Zithromax] 250 mg PO DAILY #4 tablet 02/08/22 Chlorthalidone 12.5 mg PO DAILY 02/08/22 02/08/22 Digoxin [Lanoxin] 250 mcg PO DAILY 02/08/22 02/08/22 Furosemide [Lasix] 20 mg PO DAILY #5 tablet 02/08/22 Magnesium Oxide [Magnesium] 500 mg PO DAILY 02/08/22 02/08/22 Metoprolol Succinate [Toprol Xl] 50 mg PO BID 02/08/22 02/08/22 Multivitamin [Theragran] 1 each PO DAILY 02/08/22 02/08/22 Spironolactone [Aldactone] 12.5 mg PO DAILY 02/08/22 02/08/22 Tiotropium [place] [Spiriva 18 mcg INH DAILY 02/08/22 02/08/22 Handihaler] lisinopriL [Zestril] 5 mg PO DAILY #30 tab 02/08/22 - LABS Result Diagrams: 02/08/22 08:12 02/08/22 08:12"
[2022-02-08 13:18] VITALS: BP 100/50
== END 2022-02-08 13:25 | disposition home or self-care (01) | DRG 189 ==
LOC: EDUNIT# → ED 17:03 → MS2 19:58
PROVIDERS: ADMIT Internal Medicine; ATTEND Specialist
DX: J96.01 Acute respiratory failure with hypoxia (principal); J44.1 Chronic obstructive pulmonary disease with (acute) exacerbation; I48.11 Longstanding persistent atrial fibrillation; Z68.41 Body mass index [BMI] 40.0-44.9, adult; I50.9 Heart failure, unspecified; D72.829 Elevated white blood cell count, unspecified; I27.20 Pulmonary hypertension, unspecified; E66.01 Morbid (severe) obesity due to excess calories; I11.0 Hypertensive heart disease with heart failure; F17.200 Nicotine dependence, unspecified, uncomplicated; D64.9 Anemia, unspecified; Z20.822 Contact with and (suspected) exposure to COVID-19; Z66 Do not resuscitate; Z86.2 Personal history of diseases of the blood and blood-forming organs and certain disorders involving the immune mechanism; Z87.19 Personal history of other diseases of the digestive system; Z90.710 Acquired absence of both cervix and uterus
CPT/HCPCS: 36415; 36600; 71045; 71046; 80048; 80053; 80162; 82803; 83690; 83880; 84484; 85025; 87633; 93005; 94640; 94761; A9270; J7512; 96365; 96375; 99283

== ENCOUNTER 2022-04-05 00:51 | Emergency (ER) | payer MEDICAID ==
[2022-04-05 00:59] VITALS: BP 117/93
--- OUTSIDE RECORDS SUMMARY | 2022-04-05 05:53 | EXTERNAL MEDICAL SUMMARY RPT | Continuity of Care Document ---
:1965 Author Organization [facility] Address [address] [place] [address] Phone Allergies and Intolerances date description facility type (no date) grass pollen Formerly [facility] (unknown) (no date) lavender [facility]Lavandula angustifolia[facility] (no date) mometasone furoate Formerly [facility] (unknown) Encounters No information. Functional Status No information. Immunizations No information. Medications No information. Problems date description facility 2022-01-22 07:52 Anemia, unspecified [facility] 2022-01-22 07:52 Morbid (severe) obesity due to excess [facility] 2022-01-22 07:52 Essential (primary) hypertension [facility] 2022-01-22 07:52 Pulmonary hypertension, unspecified [facility] 2022-01-22 07:52 Chronic atrial fibrillation, [facility] 2022-01-22 07:52 Unspecified chronic bronchitis Former[facility] 2022-01-22 07:52 Gastrointestinal hemorrhage, [facility] 2022-01-22 08:12 [facility], [facility] 2022-01-22 08:12 Morbid (severe) obesity due to excess [facility] 2022-01-22 08:12 Essential (primary) hypertension [facility] 2022-01-22 08:12 Pulmonary hypertension, unspecified [facility] 2022-01-22 08:12 Chronic atrial fibrillation, [facility] 2022-01-22 08:12 Unspecified chronic bronchitis [facility] 2022-01-22 08:12 Gastrointestinal hemorrhage, [facility] 2022-01-22 08:15 Anemia, [facility] 2022-01-22 08:15 Morbid (severe) obesity due to excess [facility] 2022-01-22 08:15 Essential (primary) hypertension [facility] 2022-01-22 08:15 Pulmonary hypertension, unspecified [facility] 2022-01-22 08:15 [facility] 08:15 Unspecified chronic bronchitis [facility] 2022-01-22 08:15 [facility] 08:31 Anemia, unspecified [facility] 2022-01-22 08:31 Morbid (severe) obesity due to excess [facility] 2022-01-22 08:31 Essential (primary) hypertension [facility] 2022-01-22 08:31 Pulmonary hypertension, unspecified [facility] 2022-01-22 08:31 [facility] 08:31 Unspecified chronic bronchitis [facility] 2022-01-22 08:31 Gastrointestinal hemorrhage, [facility] 2022-01-22 08:46 Anemia, unspecified [facility] 2022-01-22 08:46 Morbid (severe) obesity due to excess [facility] 2022-01-22 08:46 Essential (primary) hypertension [facility] 2022-01-22 08:46 Pulmonary hypertension, unspecified [facility] 2022-01-22 08:46 [facility]22 08:46 Unspecified chronic bronchitis [facility] 2022-01-22 08:46 [facility]-22 10:24 Anemia, unspecified [facility] 2022-01-22 10:24 Morbid (severe) obesity due to excess [facility] 2022-01-22 10:24 Essential (primary) hypertension [facility] 2022-01-22 10:24 Pulmonary hypertension, unspecified [facility] 2022-01-22 10:24 [facility]22-[facility]-22 10:24 Unspecified chronic bronchitis [facility] 2022-01-22 10:24 Gastrointestinal hemorrhage, [facility] 2022-01-22 10:25 Anemia, unspecified [facility] 2022-01-22 10:25 Morbid (severe) obesity due to excess [facility] 2022-01-22 10:25 Essential (primary) hypertension [facility] 2022-01-22 10:25 Pulmonary hypertension, unspecified [facility] 2022-01-22 10:25 [facility]-22 10:25 Unspecified chronic bronchitis [facility] 2022-01-22 10:25 [facility] 2022-01-22 12:38 Anemia, unspecified [facility] 2022-01-22 12:38 Morbid (severe) obesity due to excess [facility] 2022-01-22 12:38 Essential (primary) hypertension [facility] 2022-01-22 12:38 Pulmonary hypertension, unspecified [facility] 2022-01-22 12:38 [facility]22-[facility]-22 12:38 Unspecified chronic bronchitis [facility] 2022-01-22 12:38 Gastrointestinal hemorrhage, [facility] 2022-01-23 07:58 Anemia, unspecified [facility] 2022-01-23 07:58 Morbid (severe) obesity due to excess [facility] 2022-01-23 07:58 Essential (primary) hypertension [facility] 2022-01-23 07:58 Pulmonary hypertension, unspecified [facility] 2022-01-23 07:58 Chronic atrial fibrillation, [facility] 2022-01-23 07:58 Unspecified chronic bronchitis [facility] 2022-01-23 07:58 Gastrointestinal hemorrhage, [facility] 2022-01-23 09:10 Anemia, unspecified [facility] 2022-01-23 09:10 Morbid (severe) obesity due to excess [facility] 2022-01-23 09:10 Essential (primary) hypertension [facility] 2022-01-23 09:10 Pulmonary hypertension, unspecified [facility] 2022-01-23 09:10 [facility]22-01-23 09:10 Unspecified chronic bronchitis [facility] 2022-01-23 09:10 [facility] 2022-01-23 10:13 Anemia, unspecified [facility] 2022-01-23 10:13 Morbid (severe) obesity due to excess [facility] 2022-01-23 10:13 Essential (primary) hypertension [facility] 2022-01-23 10:13 Pulmonary hypertension, unspecified [facility] 2022-01-23 10:13 [facility] 2022-01-23 10:13 Unspecified chronic bronchitis [facility] 2022-01-23 10:13 [facility] 2022-01-23 11:03 Anemia, unspecified [facility] 2022-01-23 11:03 Morbid (severe) obesity due to excess [facility] 2022-01-23 11:03 Essential (primary) hypertension [facility] 2022-01-23 11:03 Pulmonary hypertension, unspecified [facility] 2022-01-23 11:03 [facility]22-01-23 11:03 Unspecified chronic bronchitis [facility] 2022-01-23 11:03 Gastrointestinal hemorrhage, [facility] 2022-01-25 09:42 Anemia, unspecified [facility] 2022-01-25 09:42 Morbid (severe) obesity due to excess [facility] 2022-01-25 09:42 Essential (primary) hypertension [facility] 2022-01-25 09:42 Pulmonary hypertension, unspecified [facility] 2022-01-25 09:42 Chronic atrial fibrillation, [facility] 2022-01-25 09:42 Unspecified chronic bronchitis [facility] 2022-01-25 09:42 Gastrointestinal hemorrhage, [facility] 2022-01-25 11:11 An[facility], [facility] 2022-01-25 11:11 Morbid (severe) obesity due to excess [facility] 2022-01-25 11:11 Essential (primary) hypertension [facility] 2022-01-25 11:11 Pulmonary hypertension, unspecified [facility] 2022-01-25 11:11 [facility] 2022-01-25 11:11 Unspecified chronic bronchitis [facility] 2022-01-25 11:11 Gastrointestinal hemorrhage, [facility] 2022-01-25 11:51 Anemia, unspecified [facility] 2022-01-25 11:51 Morbid (severe) obesity due to excess [facility] 2022-01-25 11:51 Essential (primary) hypertension [facility] 2022-01-25 11:51 Pulmonary hypertension, unspecified [facility] 2022-01-25 11:51 [facility] 2022-01-25 11:51 Unspecified chronic bronchitis [facility] 2022-01-25 11:51 [facility] 2022-01-25 11:56 Anemia, unspecified [facility] 2022-01-25 11:56 Morbid (severe) obesity due to excess [facility] 2022-01-25 11:56 Essential (primary) hypertension [facility] 2022-01-25 11:56 Pulmonary hypertension, unspecified [facility] 2022-01-25 11:56 Chronic atrial fibrillation, [facility] 2022-01-25 11:56 Unspecified chronic bronchitis [facility] 2022-01-25 11:56 Gastrointestinal hemorrhage, [facility] 2022-01-26 08:35 Anemia, unspecified [facility] 2022-01-26 08:35 Morbid (severe) obesity due to excess [facility] 2022-01-26 08:35 Essential (primary) hypertension [facility] 2022-01-26 08:35 Pulmonary hypertension, unspecified [facility] 2022-01-26 08:35 Chronic atrial fibrillation, [facility] 2022-01-26 08:35 Unspecified chronic bronchitis [facility] 2022-01-26 08:35 Gastrointestinal hemorrhage, [facility] 2022-01-27 10:34 Anemia, unspecified [facility] 2022-01-27 10:34 Morbid (severe) obesity due to excess [facility] 2022-01-27 10:34 Essential (primary) hypertension [facility] 2022-01-27 10:34 Pulmonary hypertension, unspecified [facility] 2022-01-27 10:34 Chronic atrial fibrillation, [facility] 2022-01-27 10:34 Unspecified chronic bronchitis [facility] 2022-01-27 10:34 Gastrointestinal hemorrhage, [facility] 2022-02-05 16:12 Anemia, unspecified [facility] 2022-02-05 16:12 Essential (primary) hypertension [facility] Procedures No information. Results/Labs test date author facility value unit interpret ation Result panel 1 (unknown) (no date) (unknown) (unknown) (no value) (units (un known) unknown) (unknown) (no date) (unknown) (unknown) [id number] (units (unkn own) unknown) (unknown) (no date) (unknown) (unknown) 01/21/22 (units (unkn own) unknown) (unknown) (no date) (unknown) (unknown) [address] (units (unk nown) [address] unknown) (unknown) (no date) (unknown) (unknown) Accession (units (unk nown) Number: unknown) [id number] (unknown) (no date) (unknown) (unknown) Age/Sex: 56 / (units (unknown) F Date of unknown) Service: (unknown) (no date) (unknown) (unknown) [place], [place] (units (unknown) [address] unknown) (unknown) (no date) (unknown) (unknown) Approved [...] (unknown) : (units (unkn own) 1965 unknown) Acct:[id number] (unknown) (no date) (unknown) (unknown) Dictated by: [...] (unknown) unremarkable. (units (unknown) unknown) Result panel 2 (unknown) (no (unknown) [...] 180 1RF unknown) (unknown) (no (unknown) (unknown) [address] (units (unkno wn) date) unknown) (unknown) (no [...] (unknown) (unknown) : 1965 (units (unknown) date) Acct:[id number] unknown) (unknown) (no (unknown) (unknown) Date of [...] nknown) date) unknown) (unknown) (no (unknown) (unknown) Formerly [facility] (units (unknown) date) [address] [place] [address] unknown) [place] [address] (unknown) (no (unknown) (unknown) Medical History (units [...] date) device (Spiriva unknown) inhalations Result panel 3 (unknown) (no (unknown) (unknown) (no value) (units (unk nown) date) unknown) (unknown) (no (unknown) (unknown) [id number] (units (unkno wn) date) unknown) (unknown) (no (unknown) (unknown) 1. Sigmoid (units (unk nown) date) diverticulosis unknown) without evidence of acute diverticulitis. No bowel (unknown) (no (unknown) (unknown) 01/21/22 (units (unkno wn) date) unknown) (unknown) (no (unknown) (unknown) [address] [place] [address] (units (unknown) date) unknown) (unknown) (no (unknown) [...] (unknown) (unknown) Accession Number: (units (unknown) date) [id number] unknown) (unknown) (no (unknown) (unknown) Adrenal Glands: (units (unknown) date) Unremarkable. unknown) (unknown) (no (unknown) (unknown) After the (units (unkn own) date) administration of unknown) intravenous contrast, axial sections acquired from (unknown) (no (unknown) (unknown) Age/Sex: 56 / F (units (unknown) date) Date of Service: unknown) (unknown) (no (unknown) (unknown) [place] ID (units ( unknown) date) [id number] unknown) (unknown) (no (unknown) (unknown) Approved by: [...] (unknown) (unknown) : 1965 (units (unknown) date) Acct:[id number] unknown) (unknown) (no (unknown) (unknown) Dictated by: [...] date) Excellent. unknown) (unknown) (no (unknown) (unknown) [facility] (units (unknown) date) unknown) (unknown) (no (unknown) [...] (units (unkno wn) date) unknown) Result panel 4 (unknown) (no (unknown) (unknown) (no value) (units [...] 180 1RF unknown) (unknown) (no (unknown) (unknown) [address] (units (unkno wn) date) unknown) (unknown) (no [...] (unknown) (unknown) : 1965 (units (unknown) date) Acct:[id number] unknown) (unknown) (no (unknown) (unknown) Date of [...] nknown) date) unknown) (unknown) (no (unknown) (unknown) [facility] (units (unknown) date) [address] [place] [address] unknown) [place] [address] (unknown) (no (unknown) (unknown) Medical History (units [...] (unknown) (unknown) Patient: (units (unkno wn) date) CmRosalba Caden unknown) MR#: [id number] (unknown) (no (unknown) (unknown) [...] date) device (Spiriva unknown) inhalations Result panel 5 (unknown) (no date) (unknown) (unknown) 0 /ul [...] (unknown) 9.7 % (unkn own) Result panel 6 (unknown) (no (unknown) (unknown) [...] 180 1RF unknown) (unknown) (no (unknown) (unknown) [address] (units (unkno wn) date) unknown) (unknown) (no [...] (unknown) (unknown) : 1965 (units (unknown) date) Acct:[id number] unknown) (unknown) (no (unknown) (unknown) Date of [...] date) Signs: unknown) (unknown) (no (unknown) (unknown) [facility] (units (unknown) date) [address] unknown) [place] [address] (unknown) (no (unknown) (unknown) Lab Data (units [...] Patient: (units (unkno wn) date) Rosalba Pabon Caden unknown) MR#: [id number] (unknown) (no (unknown) (unknown) [...] unknown) mcg/actuation 1 puff inhalation Q6H PRN 08/05/22 (unknown) (no (unknown) (unknown) albuterol (units (unkn [...] date) device (Spiriva unknown) inhalations Result panel 7 (unknown) (no (unknown) (unknown) [...] 180 1RF unknown) (unknown) (no (unknown) (unknown) [address] (units (unkno wn) date) unknown) (unknown) (no [...] (unknown) (unknown) : 1965 (units (unknown) date) Acct:[id number] unknown) (unknown) (no (unknown) (unknown) Date of [...] (unknown) date) unknown) (unknown) (no (unknown) (unknown) [facility] (units (unknown) date) [address] unknown) [place] [address] (unknown) (no (unknown) (unknown) Lab Data (units (unkno wn) date) unknown) (unknown) (no (unknown) (unknown) Lab Results (units (un known) date) unknown) (unknown) (no (unknown) (unknown) Labs: (units (unkno wn) date) unknown) (unknown) (no (unknown) (unknown) Limitations: no (units (unknown) date) limitations unknown) (unknown) (no (unknown) (unknown) Lymph # (Auto) (units (unknown) date) 1700 (2975-1432) unknown) /uL (unknown) (no (unknown) (unknown) Lymph [...] Instructions unknown) Recorded (unknown) (no (unknown) (unknown) Shannon # (Auto) (units ( unknown) date) 1100 H (0-900) /uL unknown) (unknown) (no (unknown) (unknown) Shannon % (Auto) 9.7 (units (unknown) date) (3-14) [...] (Auto) (units ( unknown) date) 8600 H (4336-5051) unknown) /uL (unknown) (no (unknown) (unknown) Neut [...] (unknown) (unknown) Patient: (units (unkno wn) date) CmRosalba Negrete MR#: unknown) [id number] (unknown) (no (unknown) (unknown) [...] tachycardia (units (unknown) date) rate of 110 IN 146 unknown) QRS 88 QTC 481. No [...] (unkn own) Result panel 9 (unknown) (no date) (unknown) (unknown) < 10 mg/dl (unkn own) (unknown) (no date) (unknown) (unknown) < 10 mg/dl (unkn own) Result panel 10 (unknown) (no date) (unknown) (unknown) > 60 [...] not ng/ml (unkn own) performed Result panel 11 (unknown) (no date) (unknown) (unknown) Negative (units (unkn own) unknown) (unknown) (no date) (unknown) (unknown) Negative (units (unkn own) unknown) Result panel 12 (unknown) (no date) (unknown) (unknown) < 0.012 [...] not ng/ml (unkn own) performed Result panel 13 (unknown) (no (unknown) (unknown) (no value) (units [...] date) unknown) (unknown) (no (unknown) (unknown) [address] [place] [address] (units (unknown) date) unknown) (unknown) (no (unknown) [...] 180 1RF unknown) (unknown) (no (unknown) (unknown) [address] (units (unkno wn) date) unknown) (unknown) (no [...] (unknown) (unknown) Accession Number: (units (unknown) date) [id number] ?? unknown) (unknown) (no (unknown) (unknown) Accession Number: (units (unknown) date) [id number] ?? unknown) (unknown) (no (unknown) (unknown) Acct:[id number] (units (unknown) date) unknown) (unknown) (no (unknown) [...] Date / Time (unknown) (no (unknown) (unknown) [place], [place] (units ( unknown) date) [address] unknown) (unknown) (no (unknown) (unknown) Anemia (units [...] (unknown) (unknown) COMPARISON:? (units (u nknown) date) [facility], unknown) CR, XR CHEST 1V, 05/25/2021, 11:07. [...] (unknown) (unknown) : 1965 (units (unknown) date) Acct:[id number] unknown) (unknown) (no (unknown) (unknown) : 1965 [...] (unknown) date) unknown) (unknown) (no (unknown) (unknown) [facility] (units (unknown) date) [address] [place] [address] unknown) [place] [address] (unknown) (no (unknown) (unknown) [facility] (units (unknown) date) unknown) (unknown) (no (unknown) [...] date) limitations unknown) (unknown) (no (unknown) (unknown) TimothyAugustus (units (unkno wn) date) unknown) (unknown) (no [...] (unknown) Lymph # (Auto) (units (unknown) date) (1207-3698) /uL unknown) (unknown) (no (unknown) (unknown) Lymph # (Auto) (units (unknown) date) 1700 (3848-1823) unknown) /uL (unknown) (no (unknown) (unknown) Lymph [...] date) unknown) (unknown) (no (unknown) (unknown) MR#: [id number] (units (unknown) date) unknown) (unknown) (no (unknown) [...] No evidence of (unknown) (no (unknown) (unknown) Shannon # (Auto) (units ( unknown) date) (0-900) /uL unknown) (unknown) (no (unknown) (unknown) Shannon # (Auto) (units ( unknown) date) 1100 H (0-900) /uL unknown) (unknown) (no (unknown) (unknown) Shannon % (Auto) (units ( unknown) date) (3-14) % unknown) (unknown) (no (unknown) (unknown) Shannon % (Auto) 9.7 (units (unknown) date) (3-14) [...] Neut # (Auto) (units ( unknown) date) (9425-4068) /uL unknown) (unknown) (no (unknown) (unknown) Neut # (Auto) (units ( unknown) date) 8600 H (1798-6434) unknown) /uL (unknown) (no (unknown) (unknown) Neut [...] tachycardia (units (unknown) date) rate of 110 IN 146 unknown) QRS 88 QTC 481. No [...] date) device (Spiriva unknown) inhalations Result panel 14 (unknown) (no (unknown) (unknown) (no value) (units [...] date) unknown) (unknown) (no (unknown) (unknown) [address] [place] [address] (units (unknown) date) unknown) (unknown) (no (unknown) [...] 180 1RF unknown) (unknown) (no (unknown) (unknown) [address] (units (unkno wn) date) unknown) (unknown) (no [...] (unknown) (unknown) Accession Number: (units (unknown) date) [id number] ?? unknown) (unknown) (no (unknown) (unknown) Accession Number: (units (unknown) date) [id number] ?? unknown) (unknown) (no (unknown) (unknown) Acct:[id number] (units (unknown) date) unknown) (unknown) (no (unknown) [...] Date / Time (unknown) (no (unknown) (unknown) [place], [place] (units ( unknown) date) [address] unknown) (unknown) (no (unknown) (unknown) Anemia (units [...] (unknown) (unknown) COMPARISON:? (units (u nknown) date) [facility], unknown) CR, XR CHEST 1V, 05/25/2021, 11:07. [...] (unknown) (unknown) : 1965 (units (unknown) date) Acct:[id number] unknown) (unknown) (no (unknown) (unknown) : 1965 [...] (unknown) (unknown) Documented By: (units (unknown) date) unknown) (unknown) (no (unknown) [...] (unknown) (unknown) : No CVA (units (unk n) date) tenderness unknown) (unknown) (no (unknown) (unknown) [...] (unknown) date) unknown) (unknown) (no (unknown) (unknown) [facility] (units (unknown) date) [address] [place] [address] unknown) [place] [address] (unknown) (no (unknown) (unknown) [facility] (units (unknown) date) unknown) (unknown) (no (unknown) [...] (unknown) Lymph # (Auto) (units (unknown) date) (9154-2485) /uL unknown) (unknown) (no (unknown) (unknown) Lymph # (Auto) (units (unknown) date) 1700 (8160-7909) unknown) /uL (unknown) (no (unknown) (unknown) Lymph [...] date) unknown) (unknown) (no (unknown) (unknown) MR#: [id number] (units (unknown) date) unknown) (unknown) (no (unknown) [...] No evidence of (unknown) (no (unknown) (unknown) Shannon # (Auto) (units ( unknown) date) (0-900) /uL unknown) (unknown) (no (unknown) (unknown) Shannon # (Auto) (units ( unknown) date) 1100 H (0-900) /uL unknown) (unknown) (no (unknown) (unknown) Shannon % (Auto) (units ( unknown) date) (3-14) % unknown) (unknown) (no (unknown) (unknown) Shannon % (Auto) 9.7 (units (unknown) date) (3-14) [...] Neut # (Auto) (units ( unknown) date) (6629-4738) /uL unknown) (unknown) (no (unknown) (unknown) Neut # (Auto) (units ( unknown) date) 8600 H (9321-6830) unknown) /uL (unknown) (no (unknown) (unknown) Neut [...] tachycardia (units (unknown) date) rate of 110 IN 146 unknown) QRS 88 QTC 481. No [...] own) date) unknown) (unknown) (no (unknown) (unknown) Carrera,Sebastian (units (unkno wn) date) unknown) (unknown) (no [...] 50 unknown) mg PO BID #180 tabs 09/23/22 (unknown) (no (unknown) (unknown) metoprolol (units (unk [...] date) device (Spiriva unknown) inhalations Result panel 15 (unknown) (no date) (unknown) (unknown) TRANSFUSED (units (un known) PRODUCT: Packed unknown) Cells COUNT: 1 Result panel 16 (unknown) (no date) (unknown) (unknown) TRANSFUSED (units (un known) PRODUCT: Packed unknown) Cells COUNT: 1 Result panel 17 (unknown) (no date) (unknown) (unknown) TRANSFUSED (units (un known) PRODUCT: Packed unknown) Cells COUNT: 1 Result panel 18 (unknown) (no date) (unknown) [...] Packed unknown) Cells COUNT: 2 Result panel 22 (unknown) (no (unknown) (unknown) (no value) (units (unk nown) date) unknown) (unknown) (no (unknown) (unknown) #18 grams (units (unkn own) date) unknown) (unknown) (no (unknown) (unknown) <Electronically (units (unknown) date) signed by Lilian Saleh unknown) Denys Armstrong> (unknown) (no (unknown) (unknown) (Augmentin) [...] date) unknown) (unknown) (no (unknown) (unknown) [address] [place] [address] (units (unknown) date) unknown) (unknown) (no (unknown) [...] lumbar spine.? No (unknown) (no (unknown) (unknown) [address] (units (unkno wn) date) unknown) (unknown) (no [...] (unknown) (unknown) Accession Number: (units (unknown) date) [id number] ?? unknown) (unknown) (no (unknown) (unknown) Accession Number: (units (unknown) date) [id number] ?? unknown) (unknown) (no (unknown) (unknown) Acct:[id number] (units (unknown) date) unknown) (unknown) (no (unknown) [...] Date / Time (unknown) (no (unknown) (unknown) [place], [place] (units ( unknown) date) [address] unknown) (unknown) (no (unknown) (unknown) Anemia (units [...] (unknown) (unknown) COMPARISON:? (units (u nknown) date) Formerly [facility], unknown) CR, XR CHEST 1V, 05/25/2021, 11:07. [...] (-2016) unknown) (unknown) (no (unknown) (unknown) Chest X-Ray [...] (unknown) (unknown) : 1965 (units (unknown) date) Acct:[id number] unknown) (unknown) (no (unknown) (unknown) : 1965 [...] DO) (unknown) (no (unknown) (unknown) Fentanyl (units (o wn) date) (Fentanyl 100 unknown) Mcg/2 Ml Inj) 25 mcg IV NOW ONE (unknown) (no (unknown) (unknown) For (units (unkno wn) date) unknown) (unknown) (no (unknown) (unknown) Furosemide (units (unk n) date) (Furosemide 40 unknown) Mg/4 Ml Vial) [...] (unknown) date) unknown) (unknown) (no (unknown) (unknown) Former[facility] (units (unknown) date) [address] [place] [address] unknown) [place] [address] (unknown) (no (unknown) (unknown) [facility] (units (unknown) date) unknown) (unknown) (no (unknown) [...] (unknown) Lymph # (Auto) (units (unknown) date) (4940-8297) /uL unknown) (unknown) (no (unknown) (unknown) Lymph # (Auto) (units (unknown) date) 1700 (7937-3028) unknown) /uL (unknown) (no (unknown) (unknown) Lymph [...] date) unknown) (unknown) (no (unknown) (unknown) MR#: [id number] (units (unknown) date) unknown) (unknown) (no (unknown) [...] No evidence of (unknown) (no (unknown) (unknown) Shannon # (Auto) (units ( unknown) date) (0-900) /uL unknown) (unknown) (no (unknown) (unknown) Shannon # (Auto) (units ( unknown) date) 1100 H (0-900) /uL unknown) (unknown) (no (unknown) (unknown) Shannon % (Auto) (units ( unknown) date) (3-14) % unknown) (unknown) (no (unknown) (unknown) Shannon % (Auto) 9.7 (units (unknown) date) (3-14) [...] Neut # (Auto) (units ( unknown) date) (6695-2388) /uL unknown) (unknown) (no (unknown) (unknown) Neut # (Auto) (units ( unknown) date) 8600 H (4979-3454) unknown) /uL (unknown) (no (unknown) (unknown) Neut [...] tachycardia (units (unknown) date) rate of 110 IN 146 unknown) QRS 88 QTC 481. No [...] date) device (Spiriva unknown) inhalations Result panel 23 (unknown) (no date) (unknown) (unknown) TRANSFUSED (units (un known) PRODUCT: Packed unknown) Cells COUNT: 2 Result panel 24 (unknown) (no (unknown) (unknown) (no value) (units [...] wn) date) unknown) (unknown) (no (unknown) (unknown) [address] (units (unkno wn) date) unknown) (unknown) (no [...] (unknown) (unknown) : 1965 (units (unknown) date) Acct:[id number] unknown) (unknown) (no (unknown) (unknown) Date of [...] nknown) date) unknown) (unknown) (no (unknown) (unknown) [facility] (units (unknown) date) [address] [place] [address] unknown) [place] [address] (unknown) (no (unknown) (unknown) Laboratory (units (unk [...] wn) date) unknown) (unknown) (no (unknown) (unknown) Shannon # (Auto) (units ( unknown) date) 1100 H unknown) (unknown) (no (unknown) (unknown) Shannon # (Auto) (units ( unknown) date) unknown) (unknown) (no (unknown) (unknown) Shannon % (Auto) (units ( unknown) date) 9.7 unknown) (unknown) (no (unknown) (unknown) Shannon % (Auto) (units ( unknown) date) unknown) [...] date) device (Spiriva unknown) inhalations Result panel 25 (unknown) (no (unknown) (unknown) [...] wn) date) unknown) (unknown) (no (unknown) (unknown) [address] (units (unkno wn) date) unknown) (unknown) (no [...] (unknown) (unknown) : 1965 (units (unknown) date) Acct:[id number] unknown) (unknown) (no (unknown) (unknown) Date of [...] nknown) date) unknown) (unknown) (no (unknown) (unknown) [facility] (units (unknown) date) [address] unknown) [place] [address] (unknown) (no (unknown) (unknown) Laboratory (units (unk [...] wn) date) unknown) (unknown) (no (unknown) (unknown) Shannon # (Auto) (units ( unknown) date) 1100 H unknown) (unknown) (no (unknown) (unknown) Shannon # (Auto) (units ( unknown) date) unknown) (unknown) (no (unknown) (unknown) Shannon % (Auto) (units ( unknown) date) 9.7 unknown) (unknown) (no (unknown) (unknown) Shannon % (Auto) (units ( unknown) date) unknown) [...] unknown) inhalations Result panel 26 (unknown) (no (unknown) (unknown) (no value) (units [...] date) unknown) (unknown) (no (unknown) (unknown) 16:10 10/12/22 (units (unknown) date) unknown) (unknown) (no (unknown) [...] wn) date) unknown) (unknown) (no (unknown) (unknown) 365[address] (units (unkno wn) date) unknown) (unknown) (no [...] (unknown) (unknown) : 1965 (units (unknown) date) Acct:[id number] unknown) (unknown) (no (unknown) (unknown) Date Patient [...] nknown) date) unknown) (unknown) (no (unknown) (unknown) [facility] (units (unknown) date) [address] unknown) [place] [address] (unknown) (no (unknown) (unknown) Laboratory (units (unk [...] Benito Simon MD) (unknown) (no (unknown) (unknown) Medication (units (unk nown) date) Instructions unknown) Recorded Confirmed Type (unknown) (no (unknown) (unknown) Meds (units (unkno wn) date) unknown) (unknown) (no (unknown) (unknown) Shannon # (Auto) (units ( unknown) date) 1100 H unknown) (unknown) (no (unknown) (unknown) Shannon # (Auto) (units ( unknown) date) unknown) (unknown) (no (unknown) (unknown) Shannon % (Auto) 9.7 (units (unknown) date) unknown) (unknown) (no (unknown) (unknown) Shannon % (Auto) (units ( unknown) date) unknown) [...] date) device (Spiriva unknown) inhalations Result panel 27 (unknown) (no date) (unknown) (unknown) 18.1 % (unkn own) (unknown) (no date) (unknown) (unknown) 18.1 % (unkn own) (unknown) (no date) (unknown) (unknown) 5.8 g/dl (unkn own) (unknown) (no date) (unknown) (unknown) 5.8 g/dl (unkn own) Result panel 28 (unknown) (no date) (unknown) (unknown) TRANSFUSED (units (un known) PRODUCT: Packed unknown) Cells COUNT: 2 Result panel 29 (unknown) (no date) (unknown) (unknown) TRANSFUSED (units (un known) PRODUCT: Packed unknown) Cells COUNT: 2 Result panel 30 (unknown) (no date) (unknown) (unknown) Positive for (units ( unknown) MRSA unknown) (unknown) (no date) (unknown) (unknown) Positive for (units ( unknown) MRSA unknown) Result panel 31 (unknown) (no date) (unknown) (unknown) TRANSFUSED (units (un known) PRODUCT: Packed unknown) Cells COUNT: 2 Result panel 32 (unknown) (no date) (unknown) (unknown) TRANSFUSED (units (un known) PRODUCT: Packed unknown) Cells COUNT: 3 Result panel 33 (unknown) (no date) (unknown) (unknown) TRANSFUSED (units (un known) PRODUCT: Packed unknown) Cells COUNT: 3 Result panel 34 (unknown) (no date) (unknown) (unknown) TRANSFUSED (units (un known) PRODUCT: Packed unknown) Cells COUNT: 3 Result panel 35 (unknown) (no date) (unknown) (unknown) TRANSFUSED (units (un known) PRODUCT: Packed unknown) Cells COUNT: 3 Result panel 36 (unknown) (no date) (unknown) (unknown) TRANSFUSED (units (un known) PRODUCT: Packed unknown) Cells COUNT: 3 Result panel 37 (unknown) (no date) (unknown) (unknown) TRANSFUSED (units (un known) PRODUCT: Packed unknown) Cells COUNT: 3 Result panel 38 (unknown) (no date) (unknown) (unknown) NEGATIVE (units (unkn own) unknown) (unknown) (no date) (unknown) (unknown) O Negative (units (un known) unknown) (unknown) (no date) (unknown) (unknown) O Negative (units (un known) unknown) (unknown) (no date) (unknown) (unknown) TRANSFUSED (units (un known) PRODUCT: Packed unknown) Cells COUNT: 4 Result panel 39 (unknown) (no date) (unknown) (unknown) NEGATIVE (units (unkn own) unknown) (unknown) (no date) (unknown) (unknown) O Negative (units (un known) unknown) (unknown) (no date) (unknown) (unknown) O Negative (units (un known) unknown) (unknown) (no date) (unknown) (unknown) TRANSFUSED (units (un known) PRODUCT: Packed unknown) Cells COUNT: 4 Result panel 40 (unknown) (no date) (unknown) (unknown) NEGATIVE (units (unkn own) unknown) (unknown) (no date) (unknown) (unknown) O Negative (units (un known) unknown) (unknown) (no date) (unknown) (unknown) O Negative (units (un known) unknown) (unknown) (no date) (unknown) (unknown) TRANSFUSED (units (un known) PRODUCT: Packed unknown) Cells COUNT: 4 Result panel 41 (unknown) (no date) (unknown) (unknown) 0 /ul [...] (unknown) 80.2 fl (unkn own) Result panel 42 (unknown) (no date) (unknown) (unknown) > 60 [...] (unknown) 94 mmol/l (unkn own) Result panel 43 (unknown) (no date) (unknown) (unknown) > 60 [...] panel 44 (unknown) (no date) (unknown) (unknown) TRANSFUSED (units (un known) PRODUCT: Packed unknown) Cells COUNT: 4 Result panel 45 (unknown) (no date) (unknown) (unknown) TRANSFUSED (units (un known) PRODUCT: Packed unknown) Cells COUNT: 4 Result panel 46 (unknown) (no date) (unknown) (unknown) 0 /ul [...] Below (units (unk nown) unknown) Result panel 47 (unknown) (no date) (unknown) (unknown) TRANSFUSED (units (un known) PRODUCT: Packed unknown) Cells COUNT: 4 Result panel 48 (unknown) (no date) (unknown) (unknown) (no value) (units (un known) unknown) (unknown) (no date) (unknown) (unknown) 01/22/22 0753 (units (unknown) unknown) (unknown) (no date) (unknown) (unknown) [address] (units (unkn own) unknown) (unknown) (no date) (unknown) (unknown) Age/Sex: 56 / (units (unknown) F unknown) (unknown) (no date) (unknown) (unknown) Call Coverage (units (unknown) Note unknown) (unknown) (no date) (unknown) (unknown) : (units (unkn own) 1965 unknown) Acct:[id number] (unknown) (no date) (unknown) (unknown) Date of (units (unkn own) Patient unknown) Contact: 01/22/22 (unknown) (no date) (unknown) (unknown) Date of (units (unkn own) Service: unknown) 01/21/22 (unknown) (no date) (unknown) (unknown) EGD and (units (unkn own) colonoscopy unknown) planned for Wednesday/tomorrow . Bowel prep today. (unknown) (no date) (unknown) (unknown) [place] (units (unkn own) [place] [address] unknown) [address] [place] [address] (unknown) (no date) (unknown) (unknown) Narrative of [...] signed by Anne-Marie Clancy MD> Result panel 49 (unknown) (no date) (unknown) (unknown) TRANSFUSED (units (un known) PRODUCT: Packed unknown) Cells COUNT: 5 Result panel 50 (unknown) (no date) (unknown) (unknown) TRANSFUSED (units (un known) PRODUCT: Packed unknown) Cells COUNT: 5 Result panel 51 (unknown) (no (unknown) (unknown) (no value) (units (unk nown) date) unknown) (unknown) (no (unknown) (unknown) +---------+ (units (un known) date) [phone] +--------- unknown) (unknown) (no (unknown) (unknown) +---------+ (units (un known) date) Hospital +--------- unknown) (unknown) (no (unknown) (unknown) + (units (unknown) date) unknown) --- (unknown) (no (unknown) (unknown) [id number] (units (unkno wn) date) unknown) (unknown) (no (unknown) (unknown) 1) Moderately (units ( unknown) date) increased left unknown) ventricular thickness (concentric) with normal (unknown) (no (unknown) (unknown) 01/22/22 (units (unkno wn) date) unknown) (unknown) (no (unknown) (unknown) [address] [place] [address] (units (unknown) date) unknown) (unknown) (no (unknown) [...] (unknown) (no (unknown) (unknown) : : [address] (units (unknown) date) : : unknown) (unknown) (no (unknown) (unknown) : : [address] : : (units ( unknown) date) unknown) (unknown) (no (unknown) (unknown) : : [place] (units (unknown) date) : : unknown) (unknown) (no (unknown) (unknown) : : Phone: [phone] : (units (unknown) date) : unknown) (unknown) (no (unknown) (unknown) :Account #: (units (un known) date) [id number] Gender: unknown) Female BSA: 2.3 m2 : (unknown) (no (unknown) (unknown) :: 1965 (units (unknown) date) Age: 56 yrs BP: unknown) 127/70 mmHg: (unknown) (no (unknown) (unknown) :[facility] MRN #: (units (unknown) date) [id number] unknown) ReadingLocation: Weight: 278 lb : (unknown) (no (unknown) (unknown) :Name: CM, (units ( unknown) date) ROSALBA Negrete Study Date: unknown) 01/22/2022 Height: 67.5 in: (unknown) (no (unknown) (unknown) :Ordering (units (unkn own) date) Physician: HERMILO, unknown) : (unknown) (no (unknown) (unknown) :STEVO [...] (unknown) (unknown) Accession Number: (units (unknown) date) [id number] unknown) (unknown) (no (unknown) (unknown) Age/Sex: 56 / F (units (unknown) date) Date of Service: unknown) (unknown) (no (unknown) (unknown) [place], [place] (units ( unknown) date) [address] unknown) (unknown) (no (unknown) (unknown) Ao V2 [...] (unknown) (unknown) : 1965 (units (unknown) date) Acct:[id number] unknown) (unknown) (no (unknown) (unknown) Doppler (units [...] date) Summary unknown) (unknown) (no (unknown) (unknown) [facility] (units (unknown) date) unknown) (unknown) (no (unknown) (unknown) [place] (units (unkno wn) date) unknown) (unknown) (no [...] unknown) (unknown) (no (unknown) (unknown) MMode/2D (units (unkno wn) date) Measurements + unknown) [...] (unknown) (unknown) Ordering Provider: (units (unknown) date) tSevo Lewis D.O. unknown) (unknown) (no (unknown) (unknown) [...] date) pressure overload unknown) condition. Result panel 52 (unknown) (no (unknown) (unknown) (no value) (units [...] (unknown) date) unknown) (unknown) (no (unknown) (unknown) [address] (units (unkno wn) date) unknown) (unknown) (no [...] (unknown) (unknown) : 1965 (units (unknown) date) Acct:[id number] unknown) (unknown) (no (unknown) (unknown) Date Patient [...] (unknown) date) unknown) (unknown) (no (unknown) (unknown) [facility] (units (unknown) date) [address] unknown) [place] [address] (unknown) (no (unknown) (unknown) Laboratory (units (unk [...] Benito Simon MD) (unknown) (no (unknown) (unknown) Shannon # (Auto) (units ( unknown) date) 1100 H unknown) (unknown) (no (unknown) (unknown) Shannon # (Auto) (units ( unknown) date) 1700 H unknown) (unknown) (no (unknown) (unknown) Shannon # (Auto) (units ( unknown) date) unknown) (unknown) (no (unknown) (unknown) Shannon % (Auto) (units ( unknown) date) 14.9 H unknown) (unknown) (no (unknown) (unknown) Shannon % (Auto) 9.7 (units (unknown) date) unknown) (unknown) (no (unknown) (unknown) Shannon % (Auto) (units ( unknown) date) unknown) [...] exclusive of unknown) procedural time. Result panel 53 (unknown) (no date) (unknown) [...] (unknown) date) unknown) (unknown) (no (unknown) (unknown) [address] (units (unkno wn) date) unknown) (unknown) (no [...] (unknown) (unknown) : 1965 (units (unknown) date) Acct:[id number] unknown) (unknown) (no (unknown) (unknown) Date Patient [...] (unknown) date) unknown) (unknown) (no (unknown) (unknown) [facility] (units (unknown) date) [address] unknown) [place] [address] (unknown) (no (unknown) (unknown) Laboratory (units (unk [...] Benito Simon MD) (unknown) (no (unknown) (unknown) Shannon # (Auto) (units ( unknown) date) 1100 H unknown) (unknown) (no (unknown) (unknown) Shannon # (Auto) (units ( unknown) date) 1700 H unknown) (unknown) (no (unknown) (unknown) Shannon # (Auto) (units ( unknown) date) unknown) (unknown) (no (unknown) (unknown) Shannon % (Auto) (units ( unknown) date) 14.9 H unknown) (unknown) (no (unknown) (unknown) Shannon % (Auto) 9.7 (units (unknown) date) unknown) (unknown) (no (unknown) (unknown) Shannon % (Auto) (units ( unknown) date) unknown) [...] exclusive of unknown) procedural time. Result panel 55 (unknown) (no date) (unknown) (unknown) TRANSFUSED (units (un known) PRODUCT: Packed unknown) Cells COUNT: 5 Result panel 56 (unknown) (no (unknown) (unknown) (no value) (units [...] (unknown) date) unknown) (unknown) (no (unknown) (unknown) [address] (units (unkno wn) date) unknown) (unknown) (no [...] (unknown) (unknown) : 1965 (units (unknown) date) Acct:[id number] unknown) (unknown) (no (unknown) (unknown) Date Patient [...] (unknown) date) unknown) (unknown) (no (unknown) (unknown) [facility] (units (unknown) date) [address] unknown) [place] [address] (unknown) (no (unknown) (unknown) Laboratory (units (unk [...] (Reviewed 01/21/22 unknown) @ 21:03 by Benito Smion MD) (unknown) (no (unknown) (unknown) Shannon # (Auto) (units ( unknown) date) 1100 H unknown) (unknown) (no (unknown) (unknown) Shannon # (Auto) (units ( unknown) date) 1700 H unknown) (unknown) (no (unknown) (unknown) Shannon # (Auto) (units ( unknown) date) unknown) (unknown) (no (unknown) (unknown) Shannon % (Auto) (units ( unknown) date) 14.9 H unknown) (unknown) (no (unknown) (unknown) Shannon % (Auto) 9.7 (units (unknown) date) unknown) (unknown) (no (unknown) (unknown) Shannon % (Auto) (units ( unknown) date) unknown) [...] (units (unkn own) date) Stevo Lewis unknown) D.OKristi (unknown) (no (unknown) (unknown) Psych:? Patient (units [...] exclusive of unknown) procedural time. Result panel 57 (unknown) (no (unknown) (unknown) [...] (unknown) date) unknown) (unknown) (no (unknown) (unknown) [address] (units (unkno wn) date) unknown) (unknown) (no [...] (unknown) (unknown) : 1965 (units (unknown) date) Acct:[id number] unknown) (unknown) (no (unknown) (unknown) Date Patient [...] (unknown) date) unknown) (unknown) (no (unknown) (unknown) [facility] (units (unknown) date) [address] unknown) [place] [address] (unknown) (no (unknown) (unknown) Laboratory Results (units [...] Benito Simon MD) (unknown) (no (unknown) (unknown) Shannon # (Auto) 1100 (units (unknown) date) H unknown) (unknown) (no (unknown) (unknown) Shannon # (Auto) 1700 (units (unknown) date) H unknown) (unknown) (no (unknown) (unknown) Shannon # (Auto) (units ( unknown) date) unknown) (unknown) (no (unknown) (unknown) Shannon % (Auto) 14.9 (units (unknown) date) H unknown) (unknown) (no (unknown) (unknown) Shannon % (Auto) 9.7 (units (unknown) date) unknown) (unknown) (no (unknown) (unknown) Shannon % (Auto) (units ( unknown) date) unknown) [...] procedural time. Result panel 58 (unknown) (no (unknown) (unknown) (no value) (units [...] (unknown) date) unknown) (unknown) (no (unknown) (unknown) [address] (units (unkno wn) date) unknown) (unknown) (no [...] (unknown) (unknown) : 1965 (units (unknown) date) Acct:[id number] unknown) (unknown) (no (unknown) (unknown) Date Patient [...] (unknown) date) unknown) (unknown) (no (unknown) (unknown) [facility] (units (unknown) date) [address] unknown) [place] [address] (unknown) (no (unknown) (unknown) Laboratory Results (units [...] Benito Simon MD) (unknown) (no (unknown) (unknown) Shannon # (Auto) 1100 (units (unknown) date) H unknown) (unknown) (no (unknown) (unknown) Shannon # (Auto) 1700 (units (unknown) date) H unknown) (unknown) (no (unknown) (unknown) Shannon # (Auto) (units ( unknown) date) unknown) (unknown) (no (unknown) (unknown) Shannon % (Auto) 14.9 (units (unknown) date) H unknown) (unknown) (no (unknown) (unknown) Shannon % (Auto) 9.7 (units (unknown) date) unknown) (unknown) (no (unknown) (unknown) Shannon % (Auto) (units ( unknown) date) unknown) [...] exclusive of unknown) procedural time. Result panel 59 (unknown) (no date) (unknown) (unknown) NEGATIVE (units (unkn own) unknown) (unknown) (no date) (unknown) (unknown) O Negative (units (un known) unknown) (unknown) (no date) (unknown) (unknown) O Negative (units (un known) unknown) (unknown) (no date) (unknown) (unknown) TRANSFUSED (units (un known) PRODUCT: Packed unknown) Cells COUNT: 5 Result panel 60 (unknown) (no date) (unknown) (unknown) 25.4 % (unkn own) (unknown) (no date) (unknown) (unknown) 8.6 g/dl (unkn own) Result panel 61 (unknown) (no date) (unknown) (unknown) 0 /ul [...] (unknown) 82.2 fl (unkn own) Result panel 62 (unknown) (no date) (unknown) (unknown) > 60 [...] (unknown) 93 mmol/l (unkn own) Result panel 63 (unknown) (no date) (unknown) (unknown) 0 /ul [...] Below (units (unk nown) unknown) Result panel 64 (unknown) (no (unknown) (unknown) (no value) (units [...] known) date) unknown) (unknown) (no (unknown) (unknown) 10/14/22 05:47 (units (unknown) date) unknown) (unknown) (no (unknown) (unknown) 01/23/22 (units (unkno wn) date) unknown) (unknown) (no (unknown) (unknown) 10:01 (units (unkno wn) date) unknown) (unknown) (no (unknown) (unknown) 14:50 18:00 (units (un known) date) 05:47 unknown) (unknown) (no (unknown) (unknown) [address] (units (unkno wn) date) unknown) (unknown) (no [...] (unknown) (unknown) : 1965 (units (unknown) date) Acct:[id number] unknown) (unknown) (no (unknown) (unknown) Date Patient [...] nknown) date) unknown) (unknown) (no (unknown) (unknown) [facility] (units (unknown) date) [address] unknown) [place] [address] (unknown) (no (unknown) (unknown) Laboratory (units (unk [...] wn) date) unknown) (unknown) (no (unknown) (unknown) Shannon # (Auto) (units ( unknown) date) 1100 H unknown) (unknown) (no (unknown) (unknown) Shannon # (Auto) (units ( unknown) date) unknown) (unknown) (no (unknown) (unknown) Shannon % (Auto) (units ( unknown) date) 10.4 unknown) (unknown) (no (unknown) (unknown) Shannon % (Auto) (units ( unknown) date) unknown) [...] date) device (Spiriva unknown) inhalations Result panel 65 (unknown) (no (unknown) (unknown) (no value) (units [...] date) 05:47 unknown) (unknown) (no (unknown) (unknown) [address] (units (unkno wn) date) unknown) (unknown) (no [...] (-2017) unknown) (unknown) (no (unknown) (unknown) Chest (units [...] (unknown) (unknown) : 1965 (units (unknown) date) Acct:[id number] unknown) (unknown) (no (unknown) (unknown) Date Patient [...] unknown) (unknown) (no (unknown) (unknown) Head: (units (o wn) date) normocephalic and unknown) atraumatic (unknown) [...] to unknown) inspection (unknown) (no (unknown) (unknown) [facility] (units (unknown) date) [address] unknown) [place] [address] (unknown) (no (unknown) (unknown) Judgment: (units (unkn [...] unknown) grossly normal (unknown) (no (unknown) (unknown) Shannon # (Auto) (units ( unknown) date) 1100 H unknown) (unknown) (no (unknown) (unknown) Shannon # (Auto) (units ( unknown) date) unknown) (unknown) (no (unknown) (unknown) Shannon % (Auto) (units ( unknown) date) 10.4 unknown) (unknown) (no (unknown) (unknown) Shannon % (Auto) (units ( unknown) date) unknown) [...] Requesting (units (unk nown) date) provider: Stevo unknownYolanda Lewis (unknown) (no (unknown) (unknown) Resp (units (unkno [...] date) device (Spiriva unknown) inhalations Result panel 66 (unknown) (no (unknown) (unknown) (no value) (units [...] wn) date) unknown) (unknown) (no (unknown) (unknown) [address] (units (unkno wn) date) unknown) (unknown) (no [...] syndrome (-2016) unknown) (unknown) (no (unknown) (unknown) Chloride 93 [...] (unknown) (unknown) : 1965 (units (unknown) date) Acct:[id number] unknown) (unknown) (no (unknown) (unknown) Date Patient [...] (unknown) date) unknown) (unknown) (no (unknown) (unknown) [facility] (units (unknown) date) [address] unknown) [place] [address] (unknown) (no (unknown) (unknown) Laboratory (units (unk [...] Anne-Marie Clancy MD) (unknown) (no (unknown) (unknown) Shannon # (Auto) (units ( unknown) date) 1100 H unknown) (unknown) (no (unknown) (unknown) Shannon % (Auto) (units ( unknown) date) 10.4 [...] exclusive of unknown) procedural time. Result panel 67 (unknown) (no (unknown) (unknown) [...] wn) date) unknown) (unknown) (no (unknown) (unknown) [id number] (units (unkno wn) date) unknown) (unknown) (no [...] (unknown) (unknown) : 1965 (units (unknown) date) Acct:[id number] unknown) (unknown) (no (unknown) (unknown) Date Patient [...] (unknown) date) unknown) (unknown) (no (unknown) (unknown) Formerly [facility] (units (unknown) date) [address] [place] [address] unknown) [place] [address] (unknown) (no (unknown) (unknown) Laboratory (units (unk [...] Anne-Marie Clancy MD) (unknown) (no (unknown) (unknown) Shannon # (Auto) (units ( unknown) date) 1100 H unknown) (unknown) (no (unknown) (unknown) Shannon % (Auto) (units ( unknown) date) 10.4 [...] exclusive of unknown) procedural time. Result panel 68 (unknown) (no date) (unknown) (unknown) 0 /ul [...] (unknown) 9.4 % (unkn own) Result panel 69 (unknown) (no date) (unknown) (unknown) > 60 [...] (unknown) 97 mmol/l (unkn own) Result panel 70 (unknown) (no date) (unknown) (unknown) 0 /ul [...] Below (units (unk nown) unknown) Result panel 71 (unknown) (no (unknown) (unknown) (no value) (units [...] wn) date) unknown) (unknown) (no (unknown) (unknown) 88266 (units (unkno wn) date) unknown) (unknown) (no [...] (unknown) (unknown) : 1965 (units (unknown) date) Acct:[id number] unknown) (unknown) (no (unknown) (unknown) Date Patient [...] date) history: unknown) (unknown) (no (unknown) (unknown) Formerly [facility] (units (unknown) date) [address] unknown) [place] [address] (unknown) (no (unknown) (unknown) Laboratory (units (unk [...] Anne-Marie Clancy MD) (unknown) (no (unknown) (unknown) Shannon # (Auto) (units ( unknown) date) 1000 H unknown) (unknown) (no (unknown) (unknown) Shannon % (Auto) (units ( unknown) date) 9.4 [...] exclusive of unknown) procedural time. Result panel 72 (unknown) (no (unknown) (unknown) (no value) (units [...] wn) date) unknown) (unknown) (no (unknown) (unknown) 76587 (units (unkno wn) date) unknown) (unknown) (no [...] (unknown) (unknown) : 1965 (units (unknown) date) Acct:[id number] unknown) (unknown) (no (unknown) (unknown) Date Patient [...] (unknown) date) unknown) (unknown) (no (unknown) (unknown) Formerly [facility] (units (unknown) date) [address] unknown) [place] [address] (unknown) (no (unknown) (unknown) Laboratory (units (unk [...] Anne-Marie Clancy MD) (unknown) (no (unknown) (unknown) Shannon # (Auto) (units ( unknown) date) 1000 H unknown) (unknown) (no (unknown) (unknown) Shannon % (Auto) 9.4 (units (unknown) date) unknown) [...] (u nknown) date) exertion unknown) Result panel 73 (unknown) (no date) (unknown) (unknown) 11.0 mmol/l [...] (unknown) 92 % (unkn own) Result panel 74 (unknown) (no (unknown) (unknown) [...] 90 0RF unknown) (unknown) (no (unknown) (unknown) 42633 (units (unkno wn) date) unknown) (unknown) (no [...] (unknown) (unknown) : 1965 (units (unknown) date) Acct:[id number] unknown) (unknown) (no (unknown) (unknown) Date Patient [...] nknown) date) unknown) (unknown) (no (unknown) (unknown) Formerly [facility] (units (unknown) date) [address] unknown) [place] [address] (unknown) (no (unknown) (unknown) Chung Mcdonald, (units [...] mg unknown) capsule,extended release 24hr Result panel 75 (unknown) (no (unknown) (unknown) [...] (unknown) date) unknown) (unknown) (no (unknown) (unknown) 10/15/22 14:42 (units (unknown) date) unknown) (unknown) (no [...] 90 0RF unknown) (unknown) (no (unknown) (unknown) 83522 (units (unkno wn) date) unknown) (unknown) (no [...] (unknown) (unknown) : 1965 (units (unknown) date) Acct:[id number] unknown) (unknown) (no (unknown) (unknown) Date Patient [...] nknown) date) unknown) (unknown) (no (unknown) (unknown) Formerly [facility] (units (unknown) date) [address] unknown) [place] [address] (unknown) (no (unknown) (unknown) Chung Mcdonald, (units [...] exertion unknown) Result panel 76 (unknown) (no (unknown) (unknown) (no value) (units [...] 90 0RF unknown) (unknown) (no (unknown) (unknown) 61936 (units (unkno wn) date) unknown) (unknown) (no [...] (unknown) (unknown) : 1965 (units (unknown) date) Acct:[id number] unknown) (unknown) (no (unknown) (unknown) Date Patient [...] nknown) date) unknown) (unknown) (no (unknown) (unknown) Formerly [facility] (units (unknown) date) [address] [place] [address] unknown) [place] [address] (unknown) (no (unknown) (unknown) Chung Mcdonald, (units [...] (u nknown) date) exertion unknown) Result panel 77 (unknown) (no (unknown) (unknown) [...] 90 0RF unknown) (unknown) (no (unknown) (unknown) 86486 (units (unkno wn) date) unknown) (unknown) (no [...] (unknown) (unknown) : 1965 (units (unknown) date) Acct:[id number] unknown) (unknown) (no (unknown) (unknown) Date Patient [...] Oxygen 40 unknown) (unknown) (no (unknown) (unknown) Augustin.? She has (units (unknown) date) had multiple [...] nknown) date) unknown) (unknown) (no (unknown) (unknown) Formerly [facility] (units (unknown) date) [address] unknown) [place] [address] (unknown) (no (unknown) (unknown) Chung Mcdonald, (units [...] (u nknown) date) exertion unknown) Result panel 78 (unknown) (no (unknown) (unknown) [...] 90 0RF unknown) (unknown) (no (unknown) (unknown) 23333 (units (unkno wn) date) unknown) (unknown) (no [...] (unknown) (unknown) : 1965 (units (unknown) date) Acct:[id number] unknown) (unknown) (no (unknown) (unknown) Date Patient [...] nknown) date) unknown) (unknown) (no (unknown) (unknown) Formerly [facility] (units (unknown) date) [address] [place] [address] Street unknown) [place] [address] (unknown) (no (unknown) (unknown) Chung Mcdonald, (units [...] (unknown) (no (unknown) (unknown) Plan of (units (unkno wn) date) Treatment: unknown) (unknown) (no (unknown) [...] -extensive counseling and (unknown) (no (unknown) (unknown) [place] (units (u [...] failed (units (unknown) date) to convince Ms. kar Pabon to stay in the hospital. 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 and currently in [place] (unknown) (no (unknown) (unknown) prescriptions (units ( [...] wn) date) unknown) (unknown) (no (unknown) (unknown) 65683 (units (unkno wn) date) unknown) (unknown) (no (unknown) (unknown) Abdominal pain (units (unknown) date) unknown) (unknown) (no (unknown) (unknown) Age/Sex: 56 / F (units (unknown) date) Date of Service: unknown) (unknown) (no (unknown) (unknown) Allergic (units (unkno wn) date) dermatitis of unknown) eyelids of both eyes (unknown) (no (unknown) (unknown) Allergies (units (unkn own) date) unknown) (unknown) (no (unknown) (unknown) [place], [place] (units ( unknown) date) [address] unknown) (unknown) (no (unknown) (unknown) Anemia (units [...] syndrome (-2016) unknown) (unknown) (no (unknown) (unknown) Chronic atrial (units (unknown) date) fibrillation unknown) (unknown) (no (unknown) (unknown) [facility] (units ( unknown) date) (chronic) unknown) (unknown) (no (unknown) (unknown) : 1965 (units (unknown) date) Acct:[id number] unknown) (unknown) (no (unknown) (unknown) Dept at [...] unknown) effort is made to edit content, 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 (unknown) (no (unknown) (unknown) throat closes, (units (unknown) date) cannot breathe unknown) Result panel 80 (unknown) (no (unknown) (unknown) (no value) (units (unk nown) date) unknown) (unknown) (no (unknown) (unknown) 01/25/22 [Rx (units (u nknown) date) Confirmed unknown) 02/05/22] (unknown) (no (unknown) (unknown) 02/05/22 (units (unkno wn) date) unknown) (unknown) (no (unknown) (unknown) 02/05/22] (units (unkn own) date) unknown) (unknown) (no (unknown) (unknown) [address] (units (unkno wn) date) unknown) (unknown) (no [...] own) date) unknown) (unknown) (no (unknown) (unknown) [place], [place] (units ( unknown) date) [address] unknown) (unknown) (no (unknown) (unknown) Anemia (units [...] syndrome (-2016) unknown) (unknown) (no (unknown) (unknown) Chronic atrial (units (unknown) date) fibrillation unknown) (unknown) (no (unknown) (unknown) Confirmed (units (unkn own) date) 02/05/22] unknown) (unknown) (no (unknown) (unknown) [facility] (units ( unknown) date) (chronic) unknown) (unknown) (no (unknown) (unknown) : 1965 (units (unknown) date) Acct:[id number] unknown) (unknown) (no (unknown) (unknown) Dept at (units (unkno wn) date) . 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 (unknown) (no (unknown) (unknown) spironolactone 25 [...] having problem sleeping are some Result panel 81 (unknown) (no (unknown) (unknown) (no value) (units (unk nown) date) unknown) (unknown) (no (unknown) (unknown) 01/25/22 [Rx (units (u nknown) date) Confirmed unknown) 02/05/22] (unknown) (no (unknown) (unknown) 02/05/22 (units (unkno wn) date) unknown) (unknown) (no (unknown) (unknown) 02/05/22] (units (unkn own) date) unknown) (unknown) (no (unknown) (unknown) [address]208 (units (unkno wn) date) unknown) (unknown) (no [...] own) date) unknown) (unknown) (no (unknown) (unknown) [place], [place] (units ( unknown) date) [address] unknown) (unknown) (no (unknown) (unknown) Anemia (units [...] (unknown) (unknown) : 1965 (units (unknown) date) Acct:[id number] unknown) (unknown) (no (unknown) (unknown) Dept at [...] unknown) effort is made to edit content, 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 (unknown) (no (unknown) (unknown) spironolactone 25 [...] having problem sleeping are some Result panel 82 (unknown) (no date) (unknown) (unknown) 0.9 % [...] 9.7 x10 3/ul (unkn own) Result panel 83 (unknown) (no date) (unknown) (unknown) 28 ug/dl (unkn own) Result panel 84 (unknown) (no date) (unknown) (unknown) 28 ug/dl (unkn own) (unknown) (no date) (unknown) (unknown) 330 mg/dl (unkn own) (unknown) (no date) (unknown) (unknown) 463 ug/dl (unkn own) (unknown) (no date) (unknown) (unknown) 6 % (unkn own) Result panel 85 (unknown) (no date) (unknown) [...] Below (units (unk nown) unknown) Result panel 86 (unknown) (no date) (unknown) (unknown) > 60 [...] (unknown) 99 mmol/l (unkn own) Result panel 87 (unknown) (no (unknown) (unknown) (no value) (units [...] own) date) unknown) (unknown) (no (unknown) (unknown) [address] (units (unkno wn) date) unknown) (unknown) (no [...] own) date) unknown) (unknown) (no (unknown) (unknown) [place] [address] (unit s (unknown) date) unknown) (unknown) (no [...] (unknown) (unknown) : 1965 (units (unknown) date) Acct:[id number] unknown) (unknown) (no (unknown) (unknown) Dept at [...] visit and will unknown) 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 (unknown) (no (unknown) (unknown) alcohol intake: (units [...] (unkn own) date) instructions on unknown) discharge brain picker her digoxin and or an iron [...] date) set back up with her unknown) 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 mover for 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 and (unknown) (no (unknown) (unknown) [...] effort is made unknown) to edit content, 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 (unknown) (no (unknown) (unknown) spironolactone 25 [...] up with a (units (unkn own) date) 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 unknown) as noted (unknown) (no (unknown) (unknown) [...] having problem sleeping are some Result panel 88 (unknown) (no (unknown) (unknown) (no value) (units [...] own) date) unknown) (unknown) (no (unknown) (unknown) [address] (units (unkno wn) date) unknown) (unknown) (no [...] own) date) unknown) (unknown) (no (unknown) (unknown) [place], [place] [address] (unit s (unknown) date) unknown) (unknown) (no [...] (un known) date) Instructions PO PER unknown) [facility] DIR #[id number] ea 02/05/22 [Rx Confirmed 02/05/22] [...] (unknown) (unknown) : 1965 (units (unknown) date) Acct:[id number] unknown) (unknown) (no (unknown) (unknown) Dept at [...] (unknown) (unknown) Patient: (units (unkno wn) date) CmRosalba M MR#: unknown) [id number] (unknown) (no (unknown) (unknown) [...] visit and will unknown) 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 (unknown) (no (unknown) (unknown) alcohol intake: (units [...] (unkn own) date) instructions on unknown) discharge brain picker her digoxin and or an iron [...] date) set back up with her unknown) earth mover for management and (unknown) (no (unknown) (unknown) [...] effort is made unknown) to edit content, 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 Vital Signs No information.
== END 2022-04-05 01:41 | disposition left against medical advice (07) ==
LOC: ED 00:51
DX: Z53.21 Procedure and treatment not carried out due to patient leaving prior to being seen by health care provider (principal)
CPT/HCPCS: 80053; 83690; 85025

== ENCOUNTER 2023-03-25 23:32 | Outpatient (CLI) | payer MEDICAID | END 2023-03-25 23:33 | disposition left against medical advice (07) | LOC: EMS 23:32 | DX: R09.89 Other specified symptoms and signs involving the circulatory and respiratory systems (principal); R05.9 Cough, unspecified; R53.83 Other fatigue; I10 Essential (primary) hypertension; Z99.81 Dependence on supplemental oxygen ==

== ENCOUNTER 2025-01-20 22:36 | Inpatient (IN) ==
--- OUTSIDE RECORDS SUMMARY | 2025-01-20 23:11 | EXTERNAL MEDICAL SUMMARY RPT | Continuity of Care Document ---
Author Organization [place] Address [address] [address] Phone Care Team Providers Care Pmo Manager Name Role Phone Unavailable Unavailable Unavailable Chung Mcdonald Unavailable Unavailable Allergies and Intolerances date description facility reaction severity 2024-11-16 11:36:47 [facility] (no reactio n) (no severity) 2024-12-21 09:07:27 [facility] (no reactio n) (no severity) 2025-01-07 00:02:48 [facility] (no reactio n) (no severity) 2024-11-16 11:36:47 [facility] (no reactio n) (no severity) 2024-12-21 09:07:27 [facility] (no reactio n) (no severity) 2025-01-07 00:02:48 [facility] (no reactio n) (no severity) 2024-11-16 11:36:47 [facility] (no reactio n) (no severity) 2024-12-21 09:07:27 [facility] (no reactio n) (no severity) 2025-01-07 00:02:48 [facility] (no reactio n) (no severity) 2024-11-16 11:36:47 [facility] (no reactio n) Severe 2024-12-21 09:07:27 [facility] (no reactio n) Severe 2025-01-07 00:02:48 [facility] (no reactio n) Severe Medications date description facility 2024-11-06 00:00 Fluticasone Propion-Salmeterol [facility] 2024-12-21 00:00 Fluticasone Propion-Salmeterol [facility] 2024-11-06 00:00 Tiotropium [facility] 2024-11-06 00:[address] [facility] 2025-01-07 00:[address] [facility] 2024-12-21 00:00 Al[facility]erol [facility]ulf[facility] 2024-11-06 00:[address] [facility] 2024-12-21 00:[address] [facility] 2024-11-06 00:00 Potassium Chloride [facility] 2024-12-21 00:00 Potassium Chloride [facility] 2024-11-20 00:00 Tiotropium [facility] 2025-01-07 00:00 Amoxicillin-Pot Clavulanate [facility] 2024-11-06 00:[address] [facility] 2024-12-21 00:[address] [facility] 2024-12-21 00:00 Metoprolol Succinate [facility] Problems date description facility 2024-10-25 15:25 Paroxysmal atrial fibrillation [facility] 2024-11-05 00:00 Acute on chronic congestive hea rt failure [facility] 2024-11-05 00:00 Acute exacerbation o f chronic obstructive pulmonary disease [facility] 2024-11-06 07:18 Chronic obstructive pulmonary disease with (acute) exacerbat [facility] 2024-11-06 08:04 [facility]:20 [facility] 10:16 Chronic obstructive pulmonary disease with (acute) exacerbat [facility] 2024-11-06 12:29 Chronic obstructive pulmonary disease with (acute) exacerbat [facility] 2024-11-08 08:43 [facility] 09:22 Chronic obstructive pulmonary disease with (acute) exacerbat [facility] 2024-11-08 09:37 Chronic obstructive pulmonary disease with (acute) exacerbat [facility] 2024-11-09 09:24 Heart failure, unspecified [facility] 2024-11-16 12:34 Dyspnea, unspecified [facility] 2024-11-22 12:30 [facility]23 07:58 Encounter for observ ation for other suspected diseases and conditions ruled out [facility] 2024-11-23 09:45 Chronic obstructive pulmonary disease with (acute) exacer[facility] 2024-11-23 11:07 Chronic obstructive pulmonary disease with (acute) exacerbat [facility] 2024-11-23 19:17 Chronic obstructive pulmonary disease with (acute) [facility] 2025-01-07 00:00 Urinary tract infection [facility] Procedures date description facility 2024-11-04 00:00 X-ray of chest, single [facility] 2025-01-07 00:00 X-ray of chest, single view [facility] 2024-11-05 00:00 assistance with resp iratory ventilation, less than 24 consecutive hours, continuous positive airway pressure [facility] Results/Labs test date facility value unit notes Result panel 1 Specimen collection (procedure) (no date) [facility] (missing) (missing) (missing) Result panel 2 Specimen collection (procedure) (no date) [facility] (missing) (missing) (missing) Result panel 3 Specimen collection (procedure) (no date) [facility] (missing) (missing) (missing) Result panel 4 Specimen collection (procedure) (no date) [facility] (missing) (missing) (missing) Result panel 5 Specimen collection (procedure) (no date) [facility] (missing) (missing) (missing) Result panel 6 Specimen collection (procedure) (no date) [facility] (missing) (missing) (missing) Result panel 7 Specimen collection (procedure) (no date) [facility] (missing) (missing) (missing) Result panel 8 Specimen collection (procedure) (no date) [facility] (missing) (missing) (missing) Result panel 9 Specimen collection (procedure) (no date) [facility] (missing) (missing) (missing) Result panel 10 Specimen collection (procedure) (no date) [facility] (missing) (missing) (missing) Result panel 11 Specimen collection (procedure) (no date) [facility] (missing) (missing) (missing) Result panel 12 Specimen collection (procedure) (no date) [facility] (missing) (missing) (missing) Result panel 13 Specimen collection (procedure) (no date) [facility] (missing) (missing) (missing) Result panel 14 Specimen collection (procedure) (no date) [facility] (missing) (missing) (missing) Result panel 15 Specimen collection (procedure) (no date) [facility] (missing) (missing) (missing) Result panel 16 Specimen collection (procedure) (no date) [facility] (missing) (missing) (missing) Result panel 17 Specimen collection (procedure) (no date) [facility] (missing) (missing) (missing) Result panel 18 Specimen collection (procedure) (no date) [facility] (missing) (missing) (missing) Result panel 19 Specimen collection (procedure) (no date) [facility] (missing) (missing) (missing) Result panel 20 Specimen collection (procedure) (no date) [facility] (missing) (missing) (missing) Result panel 21 Specimen collection (procedure) (no date) [facility] (missing) (missing) (missing) Result panel 22 Specimen collection (procedure) (no date) [facility] (missing) (missing) (missing) Result panel 23 Specimen collection (procedure) (no date) [facility] (missing) (missing) (missing) Result panel 24 Specimen collection (procedure) (no date) [facility] (missing) (missing) (missing) Result panel 25 Specimen collection (procedure) (no date) [facility] (missing) (missing) (missing) Result panel 26 Specimen collection (procedure) (no date) [facility] (missing) (missing) (missing) Result panel 27 Specimen collection (procedure) (no date) [facility] (missing) (missing) (missing) Result panel 28 Specimen collection (procedure) (no date) [facility] (missing) (missing) (missing) Result panel 29 Specimen collection (procedure) (no date) [facility] (missing) (missing) (missing) Result panel 30 Specimen collection (procedure) (no date) [facility] (missing) (missing) (missing) Result panel 31 Specimen collection (procedure) (no date) [facility] (missing) (missing) (missing) Result panel 32 Specimen collection (procedure) (no date) [facility] (missing) (missing) (missing) Result panel 33 Specimen collection (procedure) (no date) [facility] (missing) (missing) (missing) Result panel 34 Specimen collection (procedure) (no date) [facility] (missing) (missing) (missing) Result panel 35 Specimen collection (procedure) (no date) [facility] (missing) (missing) (missing) Result panel 36 Specimen collection (procedure) (no date) [facility] (missing) (missing) (missing) Result panel 37 Specimen collection (procedure) (no date) [facility] (missing) (missing) (missing) Result panel 38 Specimen collection (procedure) (no date) [facility] (missing) (missing) (missing) Result panel 39 Specimen collection (procedure) (no date) [facility] (missing) (missing) (missing) Result panel 40 Specimen collection (procedure) (no date) [facility] (missing) (missing) (missing) Result panel 41 Specimen collection (procedure) (no date) [facility] (missing) (missing) (missing) Result panel 42 Specimen collection (procedure) (no date) [facility] (missing) (missing) (missing) Result panel 43 Specimen collection (procedure) (no date) [facility] (missing) (missing) (missing) Result panel 44 Specimen collection (procedure) (no date) [facility] (missing) (missing) (missing) Result panel 45 Specimen collection (procedure) (no date) [facility] (missing) (missing) (missing) Result panel 46 Specimen collection (procedure) (no date) [facility] (missing) (missing) (missing) Result panel 47 Specimen collection (procedure) (no date) [facility] (missing) (missing) (missing) Result panel 48 Specimen collection (procedure) (no date) [facility] (missing) (missing) (missing) Result panel 49 Specimen collection (procedure) (no date) [facility] (missing) (missing) (missing) Result panel 50 Specimen collection (procedure) (no date) [facility] (missing) (missing) (missing) Result panel 51 Specimen collection (procedure) (no date) [facility] (missing) (missing) (missing) Result panel 52 Specimen collection (procedure) (no date) [facility] (missing) (missing) (missing) Result panel 53 Specimen collection (procedure) (no date) [facility] (missing) (missing) (missing) Result panel 54 Specimen collection (procedure) (no date) [facility] (missing) (missing) (missing) Result panel 55 Specimen collection (procedure) (no date) [facility] (missing) (missing) (missing) Result panel 56 Specimen collection (procedure) (no date) [facility] (missing) (missing) (missing) Result panel 57 Specimen collection (procedure) (no date) [facility] (missing) (missing) (missing) Result panel 58 Specimen collection (procedure) (no date) [facility] (missing) (missing) (missing) Result panel 59 Specimen collection (procedure) (no date) [facility] (missing) (missing) (missing) Result panel 60 Specimen collection (procedure) (no date) [facility] (missing) (missing) (missing) Result panel 61 Specimen collection (procedure) (no date) [facility] (missing) (missing) (missing) Result panel 62 Specimen collection (procedure) (no date) [facility] (missing) (missing) (missing) Result panel 63 Specimen collection (procedure) (no date) [facility] (missing) (missing) (missing) Result panel 64 Specimen collection (procedure) (no date) [facility] (missing) (missing) (missing) Result panel 65 Specimen collection (procedure) (no date) [facility] (missing) (missing) (missing) Result panel 66 Specimen collection (procedure) (no date) [facility] (missing) (missing) (missing) Result panel 67 Specimen collection (procedure) (no date) [facility] (missing) (missing) (missing) Result panel 68 Specimen collection (procedure) (no date) [facility] (missing) (missing) (missing) Result panel 69 Specimen collection (procedure) (no date) [facility] (missing) (missing) (missing) Result panel 70 Specimen collection (procedure) (no date) [facility] (missing) (missing) (missing) Result panel 71 Specimen collection (procedure) (no date) [facility] (missing) (missing) (missing) Result panel 72 Specimen collection (procedure) (no date) [facility] (missing) (missing) (missing) Result panel 73 Specimen collection (procedure) (no date) [facility] (missing) (missing) (missing) Result panel 74 Specimen collection (procedure) (no date) [facility] (missing) (missing) (missing) Result panel 75 Specimen collection (procedure) (no date) [facility] (missing) (missing) (missing) Result panel 76 Specimen collection (procedure) (no date) [facility] (missing) (missing) (missing) Result panel 77 Specimen collection (procedure) (no date) [facility] (missing) (missing) (missing) Result panel 78 Specimen collection (procedure) (no date) [facility] (missing) (missing) (missing) Result panel 79 Specimen collection (procedure) (no date) [facility] (missing) (missing) (missing) Result panel 80 Specimen collection (procedure) (no date) [facility] (missing) (missing) (missing) Result panel 81 Specimen collection (procedure) (no date) [facility] (missing) (missing) (missing) Result panel 82 Specimen collection (procedure) (no date) [facility] (missing) (missing) (missing) Result panel 83 Specimen collection (procedure) (no date) [facility] (missing) (missing) (missing) Result panel 84 Specimen collection (procedure) (no date) [facility] (missing) (missing) (missing) Result panel 85 Specimen collection (procedure) (no date) [facility] (missing) (missing) (missing) Result panel 86 Specimen collection (procedure) (no date) [facility] (missing) (missing) (missing) Result panel 87 Specimen collection (procedure) (no date) [facility] (missing) (missing) (missing) Result panel 88 Specimen collection (procedure) (no date) [facility] (missing) (missing) (missing) Result panel 89 Specimen collection (procedure) (no date) [facility] (missing) (missing) (missing) Result panel 90 Specimen collection (procedure) (no date) [facility] (missing) (missing) (missing) Result panel 91 Specimen collection (procedure) (no date) [facility] (missing) (missing) (missing) Result panel 92 Specimen collection (procedure) (no date) [facility] (missing) (missing) (missing) Result panel 93 Specimen collection (procedure) (no date) [facility] (missing) (missing) (missing) Result panel 94 Specimen collection (procedure) (no date) [facility] (missing) (missing) (missing) Result panel 95 Specimen collection (procedure) (no date) [facility] (missing) (missing) (missing) Result panel 96 Specimen collection (procedure) (no date) [facility] (missing) (missing) (missing) Result panel 97 Specimen collection (procedure) (no date) [facility] (missing) (missing) (missing) Result panel 98 Specimen collection (procedure) (no date) [facility] (missing) (missing) (missing) Result panel 99 Specimen collection (procedure) (no date) [facility] (missing) (missing) (missing) Result panel 100 Specimen collection (procedure) (no date) [facility] (missing) (missing) (missing) Result panel 101 Specimen collection (procedure) (no date) [facility] (missing) (missing) (missing) Result panel 102 Specimen collection (procedure) (no date) [facility] (missing) (missing) (missing) Result panel 103 Specimen collection (procedure) (no date) [facility] (missing) (missing) (missing) Result panel 104 Specimen collection (procedure) (no date) [facility] (missing) (missing) (missing) Result panel 105 Specimen collection (procedure) (no date) [facility] (missing) (missing) (missing) Result panel 106 Specimen collection (procedure) (no date) [facility] (missing) (missing) (missing) Result panel 107 Specimen collection (procedure) (no date) [facility] (missing) (missing) (missing) Result panel 108 Specimen collection (procedure) (no date) [facility] (missing) (missing) (missing) Result panel 109 Specimen collection (procedure) (no date) [facility] (missing) (missing) (missing) Result panel 110 Specimen collection (procedure) (no date) [facility] (missing) (missing) (missing) Result panel 111 Specimen collection (procedure) (no date) [facility] (missing) (missing) (missing) Result panel 112 Specimen collection (procedure) (no date) [facility] (missing) (missing) (missing) Result panel 113 Specimen collection (procedure) (no date) [facility] (missing) (missing) (missing) Result panel 114 Specimen collection (procedure) (no date) [facility] (missing) (missing) (missing) Result panel 115 Specimen collection (procedure) (no date) [facility] (missing) (missing) (missing) Result panel 116 Specimen collection (procedure) (no date) [facility] (missing) (missing) (missing) Result panel 117 Specimen collection (procedure) (no date) [facility] (missing) (missing) (missing) Result panel 118 Specimen collection (procedure) (no date) [facility] (missing) (missing) (missing) Result panel 119 Specimen collection (procedure) (no date) [facility] (missing) (missing) (missing) Result panel 120 Specimen collection (procedure) (no date) [facility] (missing) (missing) (missing) Result panel 121 Specimen collection (procedure) (no date) [facility] (missing) (missing) (missing) Result panel 122 Specimen collection (procedure) (no date) [facility] (missing) (missing) (missing) Result panel 123 Specimen collection (procedure) (no date) [facility] (missing) (missing) (missing) Result panel 124 Specimen collection (procedure) (no date) [facility] (missing) (missing) (missing) Result panel 125 Specimen collection (procedure) (no date) [facility] (missing) (missing) (missing) Result panel 126 Specimen collection (procedure) (no date) [facility] (missing) (missing) (missing) Result panel 127 Specimen collection (procedure) (no date) [facility] (missing) (missing) (missing) Result panel 128 Specimen collection (procedure) (no date) [facility] (missing) (missing) (missing) Result panel 129 Specimen collection (procedure) (no date) [facility] (missing) (missing) (missing) Result panel 130 Specimen collection (procedure) (no date) [facility] (missing) (missing) (missing) Result panel 131 Specimen collection (procedure) (no date) [facility] (missing) (missing) (missing) Result panel 132 Specimen collection (procedure) (no date) [facility] (missing) (missing) (missing) Result panel 133 Specimen collection (procedure) (no date) [facility] (missing) (missing) (missing) Result panel 134 Specimen collection (procedure) (no date) [facility] (missing) (missing) (missing) Result panel 135 Specimen collection (procedure) (no date) [facility] (missing) (missing) (missing) Result panel 136 Specimen collection (procedure) (no date) [facility] (missing) (missing) (missing) Result panel 137 Specimen collection (procedure) (no date) [facility] (missing) (missing) (missing) Result panel 138 Specimen collection (procedure) (no date) [facility] (missing) (missing) (missing) Result panel 139 Specimen collection (procedure) (no date) [facility] (missing) (missing) (missing) Result panel 140 Specimen collection (procedure) (no date) [facility] (missing) (missing) (missing) Result panel 141 Specimen collection (procedure) (no date) [facility] (missing) (missing) (missing) Result panel 142 Specimen collection (procedure) (no date) [facility] (missing) (missing) (missing) Result panel 143 Specimen collection (procedure) (no date) [facility] (missing) (missing) (missing) Result panel 144 Specimen collection (procedure) (no date) [facility] (missing) (missing) (missing) Result panel 145 Specimen collection (procedure) (no date) [facility] (missing) (missing) (missing) Result panel 146 Specimen collection (procedure) (no date) [facility] (missing) (missing) (missing) Result panel 147 Specimen collection (procedure) (no date) [facility] (missing) (missing) (missing) Result panel 148 Specimen collection (procedure) (no date) [facility] (missing) (missing) (missing) Result panel 149 Specimen collection (procedure) (no date) [facility] (missing) (missing) (missing) Result panel 150 Specimen collection (procedure) (no date) [facility] (missing) (missing) (missing) Result panel 151 Specimen collection (procedure) (no date) [facility] (missing) (missing) (missing) Result panel 152 Specimen collection (procedure) (no date) [facility] (missing) (missing) (missing) Result panel 153 Specimen collection (procedure) (no date) [facility] (missing) (missing) (missing) Result panel 154 Specimen collection (procedure) (no date) [facility] (missing) (missing) (missing) Result panel 155 Specimen collection (procedure) (no date) [facility] (missing) (missing) (missing) Result panel 156 Specimen collection (procedure) (no date) [facility] (missing) (missing) (missing) Result panel 157 Specimen collection (procedure) (no date) [facility] (missing) (missing) (missing) Result panel 158 Specimen collection (procedure) (no date) [facility] (missing) (missing) (missing) Result panel 159 Specimen collection (procedure) (no date) [facility] (missing) (missing) (missing) Result panel 160 Specimen collection (procedure) (no date) [facility] (missing) (missing) (missing) Result panel 161 Specimen collection (procedure) (no date) [facility] (missing) (missing) (missing) Result panel 162 Specimen collection (procedure) (no date) [facility] (missing) (missing) (missing) Result panel 163 Specimen collection (procedure) (no date) [facility] (missing) (missing) (missing) Result panel 164 Specimen collection (procedure) (no date) [facility] (missing) (missing) (missing) Result panel 165 Specimen collection (procedure) (no date) [facility] (missing) (missing) (missing) Result panel 166 Specimen collection (procedure) (no date) [facility] (missing) (missing) (missing) Result panel 167 Specimen collection (procedure) (no date) [facility] (missing) (missing) (missing) Result panel 168 Specimen collection (procedure) (no date) [facility] (missing) (missing) (missing) Result panel 169 Specimen collection (procedure) (no date) [facility] (missing) (missing) (missing) Result panel 170 Specimen collection (procedure) (no date) [facility] (missing) (missing) (missing) Result panel 171 Specimen collection (procedure) (no date) [facility] (missing) (missing) (missing) Result panel 172 Specimen collection (procedure) (no date) [facility] (missing) (missing) (missing) Result panel 173 Specimen collection (procedure) (no date) [facility] (missing) (missing) (missing) Result panel 174 Specimen collection (procedure) (no date) [facility] (missing) (missing) (missing) Result panel 175 Specimen collection (procedure) (no date) [facility] (missing) (missing) (missing) Result panel 176 Specimen collection (procedure) (no date) [facility] (missing) (missing) (missing) Result panel 177 Specimen collection (procedure) (no date) [facility] (missing) (missing) (missing) Result panel 178 Specimen collection (procedure) (no date) [facility] (missing) (missing) (missing) Result panel 179 Specimen collection (procedure) (no date) [facility] (missing) (missing) (missing) Result panel 180 Specimen collection (procedure) (no date) [facility] (missing) (missing) (missing) Result panel 181 Specimen collection (procedure) (no date) [facility] (missing) (missing) (missing) Result panel 182 Specimen collection (procedure) (no date) [facility] (missing) (missing) (missing) Result panel 183 Specimen collection (procedure) (no date) [facility] (missing) (missing) (missing) Result panel 184 Specimen collection (procedure) (no date) [facility] (missing) (missing) (missing) Result panel 185 Specimen collection (procedure) (no date) [facility] (missing) (missing) (missing) Result panel 186 Specimen collection (procedure) (no date) [facility] (missing) (missing) (missing) Result panel 187 Specimen collection (procedure) (no date) [facility] (missing) (missing) (missing) Result panel 188 Specimen collection (procedure) (no date) [facility] (missing) (missing) (missing) Result panel 189 Specimen collection (procedure) (no date) [facility] (missing) (missing) (missing) Result panel 190 Specimen collection (procedure) (no date) [facility] (missing) (missing) (missing) Result panel 191 Specimen collection (procedure) (no date) [facility] (missing) (missing) (missing) Result panel 192 Specimen collection (procedure) (no date) [facility] (missing) (missing) (missing) Result panel 193 Specimen collection (procedure) (no date) [facility] (missing) (missing) (missing) Result panel 194 Specimen collection (procedure) (no date) [facility] (missing) (missing) (missing) Result panel 195 Specimen collection (procedure) (no date) [facility] (missing) (missing) (missing) Result panel 196 Specimen collection (procedure) (no date) [facility] (missing) (missing) (missing) Result panel 197 Specimen collection (procedure) (no date) [facility] (missing) (missing) (missing) Result panel 198 Specimen collection (procedure) (no date) [facility] (missing) (missing) (missing) Result panel 199 Specimen collection (procedure) (no date) [facility] (missing) (missing) (missing) Result panel 200 Specimen collection (procedure) (no date) [facility] (missing) (missing) (missing) Result panel 201 Specimen collection (procedure) (no date) [facility] (missing) (missing) (missing) Result panel 202 Specimen collection (procedure) (no date) [facility] (missing) (missing) (missing) Result panel 203 Specimen collection (procedure) (no date) [facility] (missing) (missing) (missing) Result panel 204 Specimen collection (procedure) (no date) [facility] (missing) (missing) (missing) Result panel 205 Specimen collection (procedure) (no date) [facility] (missing) (missing) (missing) Result panel 206 Specimen collection (procedure) (no date) [facility] (missing) (missing) (missing) Result panel 207 Specimen collection (procedure) (no date) [facility] (missing) (missing) (missing) Result panel 208 Specimen collection (procedure) (no date) [facility] (missing) (missing) (missing) Result panel 209 Specimen collection (procedure) (no date) [facility] (missing) (missing) (missing) Result panel 210 Specimen collection (procedure) (no date) [facility] (missing) (missing) (missing) Result panel 211 Specimen collection (procedure) (no date) [facility] (missing) (missing) (missing) Result panel 212 Specimen collection (procedure) (no date) [facility] (missing) (missing) (missing) Result panel 213 Specimen collection (procedure) (no date) [facility] (missing) (missing) (missing) Result panel 214 Specimen collection (procedure) (no date) [facility] (missing) (missing) (missing) Result panel 215 Specimen collection (procedure) (no date) [facility] (missing) (missing) (missing) Result panel 216 Specimen collection (procedure) (no date) [facility] (missing) (missing) (missing) Result panel 217 Specimen collection (procedure) (no date) [facility] (missing) (missing) (missing) Result panel 218 Specimen collection (procedure) (no date) [facility] (missing) (missing) (missing) Result panel 219 Specimen collection (procedure) (no date) [facility] (missing) (missing) (missing) Result panel 220 Specimen collection (procedure) (no date) [facility] (missing) (missing) (missing) Result panel 221 Specimen collection (procedure) (no date) [facility] (missing) (missing) (missing) Result panel 222 Specimen collection (procedure) (no date) [facility] (missing) (missing) (missing) Result panel 223 Specimen collection (procedure) (no date) [facility] (missing) (missing) (missing) Result panel 224 Specimen collection (procedure) (no date) [facility] (missing) (missing) (missing) Result panel 225 Specimen collection (procedure) (no date) [facility] (missing) (missing) (missing) Result panel 226 Specimen collection (procedure) (no date) [facility] (missing) (missing) (missing) Result panel 227 Specimen collection (procedure) (no date) [facility] (missing) (missing) (missing) Result panel 228 Specimen collection (procedure) (no date) [facility] (missing) (missing) (missing) Result panel 229 Specimen collection (procedure) (no date) [facility] (missing) (missing) (missing) Result panel 230 Specimen collection (procedure) (no date) [facility] (missing) (missing) (missing) Result panel 231 Specimen collection (procedure) (no date) [facility] (missing) (missing) (missing) Result panel 232 Specimen collection (procedure) (no date) [facility] (missing) (missing) (missing) Result panel 233 Specimen collection (procedure) (no date) [facility] (missing) (missing) (missing) Result panel 234 Specimen collection (procedure) (no date) [facility] (missing) (missing) (missing) Result panel 235 Specimen collection (procedure) (no date) [facility] (missing) (missing) (missing) Result panel 236 Specimen collection (procedure) (no date) [facility] (missing) (missing) (missing) Result panel 237 Specimen collection (procedure) (no date) [facility] (missing) (missing) (missing) Result panel 238 Specimen collection (procedure) (no date) [facility] (missing) (missing) (missing) Result panel 239 Specimen collection (procedure) (no date) [facility] (missing) (missing) (missing) Result panel 240 Specimen collection (procedure) (no date) [facility] (missing) (missing) (missing) Result panel 241 Specimen collection (procedure) (no date) [facility] (missing) (missing) (missing) Result panel 242 Specimen collection (procedure) (no date) [facility] (missing) (missing) (missing) Result panel 243 Specimen collection (procedure) (no date) [facility] (missing) (missing) (missing) Result panel 244 Specimen collection (procedure) (no date) [facility] (missing) (missing) (missing) Result panel 245 Specimen collection (procedure) (no date) [facility] (missing) (missing) (missing) Result panel 246 Specimen collection (procedure) (no date) [facility] (missing) (missing) (missing) Result panel 247 Specimen collection (procedure) (no date) [facility] (missing) (missing) (missing) Result panel 248 Specimen collection (procedure) (no date) [facility] (missing) (missing) (missing) Result panel 249 Specimen collection (procedure) (no date) [facility] (missing) (missing) (missing) Result panel 250 Specimen collection (procedure) (no date) [facility] (missing) (missing) (missing) Result panel 251 Specimen collection (procedure) (no date) [facility] (missing) (missing) (missing) Result panel 252 Specimen collection (procedure) (no date) [facility] (missing) (missing) (missing) Result panel 253 Specimen collection (procedure) (no date) [facility] (missing) (missing) (missing) Result panel 254 Specimen collection (procedure) (no date) [facility] (missing) (missing) (missing) Result panel 255 Specimen collection (procedure) (no date) [facility] (missing) (missing) (missing) Result panel 256 Specimen collection (procedure) (no date) [facility] (missing) (missing) (missing) Result panel 257 Specimen collection (procedure) (no date) [facility] (missing) (missing) (missing) Result panel 258 Specimen collection (procedure) (no date) [facility] (missing) (missing) (missing) Result panel 259 Specimen collection (procedure) (no date) [facility] (missing) (missing) (missing) Result panel 260 Specimen collection (procedure) (no date) [facility] (missing) (missing) (missing) Result panel 261 Specimen collection (procedure) (no date) [facility] (missing) (missing) (missing) Result panel 262 Specimen collection (procedure) (no date) [facility] (missing) (missing) (missing) Result panel 263 Specimen collection (procedure) (no date) [facility] (missing) (missing) (missing) Result panel 264 Specimen collection (procedure) (no date) [facility] (missing) (missing) (missing) Result panel 265 Specimen collection (procedure) (no date) [facility] (missing) (missing) (missing) Result panel 266 Specimen collection (procedure) (no date) [facility] (missing) (missing) (missing) Result panel 267 Specimen collection (procedure) (no date) [facility] (missing) (missing) (missing) Result panel 268 Specimen collection (procedure) (no date) [facility] (missing) (missing) (missing) Result panel 269 Specimen collection (procedure) (no date) [facility] (missing) (missing) (missing) Result panel 270 Specimen collection (procedure) (no date) [facility] (missing) (missing) (missing) Result panel 271 Specimen collection (procedure) (no date) [facility] (missing) (missing) (missing) Result panel 272 Specimen collection (procedure) (no date) [facility] (missing) (missing) (missing) Result panel 273 Specimen collection (procedure) (no date) [facility] (missing) (missing) (missing) Result panel 274 Specimen collection (procedure) (no date) [facility] (missing) (missing) (missing) Result panel 275 Specimen collection (procedure) (no date) [facility] (missing) (missing) (missing) Result panel 276 Specimen collection (procedure) (no date) [facility] (missing) (missing) (missing) Result panel 277 Specimen collection (procedure) (no date) [facility] (missing) (missing) (missing) Result panel 278 Specimen collection (procedure) (no date) [facility] (missing) (missing) (missing) Result panel 279 Specimen collection (procedure) (no date) [facility] (missing) (missing) (missing) Result panel 280 Specimen collection (procedure) (no date) [facility] (missing) (missing) (missing) Result panel 281 Specimen collection (procedure) (no date) [facility] (missing) (missing) (missing) Result panel 282 Specimen collection (procedure) (no date) [facility] (missing) (missing) (missing) Result panel 283 Specimen collection (procedure) (no date) [facility] (missing) (missing) (missing) Result panel 284 Specimen collection (procedure) (no date) [facility] (missing) (missing) (missing) Result panel 285 Specimen collection (procedure) (no date) [facility] (missing) (missing) (missing) Result panel 286 Specimen collection (procedure) (no date) [facility] (missing) (missing) (missing) Result panel 287 Specimen collection (procedure) (no date) [facility] (missing) (missing) (missing) Result panel 288 Specimen collection (procedure) (no date) [facility] (missing) (missing) (missing) Result panel 289 Specimen collection (procedure) (no date) [facility] (missing) (missing) (missing) Result panel 290 Specimen collection (procedure) (no date) [facility] (missing) (missing) (missing) Result panel 291 Specimen collection (procedure) (no date) [facility] (missing) (missing) (missing) Result panel 292 Specimen collection (procedure) (no date) [facility] (missing) (missing) (missing) Result panel 293 Specimen collection (procedure) (no date) [facility] (missing) (missing) (missing) Result panel 294 Specimen collection (procedure) (no date) [facility] (missing) (missing) (missing) Result panel 295 Specimen collection (procedure) (no date) [facility] (missing) (missing) (missing) Result panel 296 Specimen collection (procedure) (no date) [facility] (missing) (missing) (missing) Result panel 297 Specimen collection (procedure) (no date) [facility] (missing) (missing) (missing) Result panel 298 Specimen collection (procedure) (no date) [facility] (missing) (missing) (missing) Result panel 299 Specimen collection (procedure) (no date) [facility] (missing) (missing) (missing) Result panel 300 Specimen collection (procedure) (no date) [facility] (missing) (missing) (missing) Result panel 301 Specimen collection (procedure) (no date) [facility] (missing) (missing) (missing) Result panel 302 Specimen collection (procedure) (no date) [facility] (missing) (missing) (missing) Result panel 303 Specimen collection (procedure) (no date) [facility] (missing) (missing) (missing) Result panel 304 Specimen collection (procedure) (no date) [facility] (missing) (missing) (missing) Result panel 305 Specimen collection (procedure) (no date) [facility] (missing) (missing) (missing) Result panel 306 Specimen collection (procedure) (no date) [facility] (missing) (missing) (missing) Result panel 307 Specimen collection (procedure) (no date) [facility] (missing) (missing) (missing) Result panel 308 Specimen collection (procedure) (no date) [facility] (missing) (missing) (missing) Result panel 309 Specimen collection (procedure) (no date) [facility] (missing) (missing) (missing) Result panel 310 Specimen collection (procedure) (no date) [facility] (missing) (missing) (missing) Result panel 311 Specimen collection (procedure) (no date) [facility] (missing) (missing) (missing) Result panel 312 Specimen collection (procedure) (no date) [facility] (missing) (missing) (missing) Result panel 313 Specimen collection (procedure) (no date) [facility] (missing) (missing) (missing) Result panel 314 Specimen collection (procedure) (no date) [facility] (missing) (missing) (missing) Result panel 315 Specimen collection (procedure) (no date) [facility] (missing) (missing) (missing) Result panel 316 Specimen collection (procedure) (no date) [facility] (missing) (missing) (missing) Result panel 317 Specimen collection (procedure) (no date) [facility] (missing) (missing) (missing) Result panel 318 Specimen collection (procedure) (no date) [facility] (missing) (missing) (missing) Result panel 319 Specimen collection (procedure) (no date) [facility] (missing) (missing) (missing) Result panel 320 Specimen collection (procedure) (no date) [facility] (missing) (missing) (missing) Result panel 321 Specimen collection (procedure) (no date) [facility] (missing) (missing) (missing) Result panel 322 Specimen collection (procedure) (no date) [facility] (missing) (missing) (missing) Result panel 323 Specimen collection (procedure) (no date) [facility] (missing) (missing) (missing) Result panel 324 Specimen collection (procedure) (no date) [facility] (missing) (missing) (missing) Result panel 325 Specimen collection (procedure) (no date) [facility] (missing) (missing) (missing) Result panel 326 Specimen collection (procedure) (no date) [facility] (missing) (missing) (missing) Result panel 327 Specimen collection (procedure) (no date) [facility] (missing) (missing) (missing) Result panel 328 Specimen collection (procedure) (no date) [facility] (missing) (missing) (missing) Result panel 329 Specimen collection (procedure) (no date) [facility] (missing) (missing) (missing) Result panel 330 Specimen collection (procedure) (no date) [facility] (missing) (missing) (missing) Result panel 331 Specimen collection (procedure) (no date) [facility] (missing) (missing) (missing) Result panel 332 Specimen collection (procedure) (no date) [facility] (missing) (missing) (missing) Result panel 333 Specimen collection (procedure) (no date) [facility] (missing) (missing) (missing) Result panel 334 Specimen collection (procedure) (no date) [facility] (missing) (missing) (missing) Result panel 335 Specimen collection (procedure) (no date) [facility] (missing) (missing) (missing) Result panel 336 Specimen collection (procedure) (no date) [facility] (missing) (missing) (missing) Result panel 337 Specimen collection (procedure) (no date) [facility] (missing) (missing) (missing) Result panel 338 Specimen collection (procedure) (no date) [facility] (missing) (missing) (missing) Result panel 339 Specimen collection (procedure) (no date) [facility] (missing) (missing) (missing) Result panel 340 Specimen collection (procedure) (no date) [facility] (missing) (missing) (missing) Result panel 341 Specimen collection (procedure) (no date) [facility] (missing) (missing) (missing) Result panel 342 Specimen collection (procedure) (no date) [facility] (missing) (missing) (missing) Result panel 343 Specimen collection (procedure) (no date) [facility] (missing) (missing) (missing) Result panel 344 Specimen collection (procedure) (no date) [facility] (missing) (missing) (missing) Result panel 345 Specimen collection (procedure) (no date) [facility] (missing) (missing) (missing) Result panel 346 Specimen collection (procedure) (no date) [facility] (missing) (missing) (missing) Result panel 347 Specimen collection (procedure) (no date) [facility] (missing) (missing) (missing) Result panel 348 Specimen collection (procedure) (no date) [facility] (missing) (missing) (missing) Result panel 349 Specimen collection (procedure) (no date) [facility] (missing) (missing) (missing) Result panel 350 Specimen collection (procedure) (no date) [facility] (missing) (missing) (missing) Result panel 351 Specimen collection (procedure) (no date) [facility] (missing) (missing) (missing) Result panel 352 Specimen collection (procedure) (no date) [facility] (missing) (missing) (missing) Result panel 353 Specimen collection (procedure) (no date) [facility] (missing) (missing) (missing) Result panel 354 Specimen collection (procedure) (no date) [facility] (missing) (missing) (missing) Result panel 355 Specimen collection (procedure) (no date) [facility] (missing) (missing) (missing) Result panel 356 Specimen collection (procedure) (no date) [facility] (missing) (missing) (missing) Result panel 357 Specimen collection (procedure) (no date) [facility] (missing) (missing) (missing) Result panel 358 Specimen collection (procedure) (no date) [facility] (missing) (missing) (missing) Result panel 359 Specimen collection (procedure) (no date) [facility] (missing) (missing) (missing) Result panel 360 Specimen collection (procedure) (no date) [facility] (missing) (missing) (missing) Result panel 361 Specimen collection (procedure) (no date) [facility] (missing) (missing) (missing) Result panel 362 Specimen collection (procedure) (no date) [facility] (missing) (missing) (missing) Result panel 363 Specimen collection (procedure) (no date) [facility] (missing) (missing) (missing) Result panel 364 Specimen collection (procedure) (no date) [facility] (missing) (missing) (missing) Result panel 365 Specimen collection (procedure) (no date) [facility] (missing) (missing) (missing) Result panel 366 Specimen collection (procedure) (no date) [facility] (missing) (missing) (missing) Result panel 367 Specimen collection (procedure) (no date) [facility] (missing) (missing) (missing) Result panel 368 Specimen collection (procedure) (no date) [facility] (missing) (missing) (missing) Result panel 369 Specimen collection (procedure) (no date) [facility] (missing) (missing) (missing) Result panel 370 Specimen collection (procedure) (no date) [facility] (missing) (missing) (missing) Result panel 371 Specimen collection (procedure) (no date) [facility] (missing) (missing) (missing) Result panel 372 Specimen collection (procedure) (no date) [facility] (missing) (missing) (missing) Result panel 373 Specimen collection (procedure) (no date) [facility] (missing) (missing) (missing) Result panel 374 Specimen collection (procedure) (no date) [facility] (missing) (missing) (missing) Result panel 375 Specimen collection (procedure) (no date) [facility] (missing) (missing) (missing) Result panel 376 Specimen collection (procedure) (no date) [facility] (missing) (missing) (missing) Result panel 377 Specimen collection (procedure) (no date) [facility] (missing) (missing) (missing) Result panel 378 Specimen collection (procedure) (no date) [facility] (missing) (missing) (missing) Result panel 379 Specimen collection (procedure) (no date) [facility] (missing) (missing) (missing) Result panel 380 Specimen collection (procedure) (no date) [facility] (missing) (missing) (missing) Result panel 381 Specimen collection (procedure) (no date) [facility] (missing) (missing) (missing) Result panel 382 Specimen collection (procedure) (no date) [facility] (missing) (missing) (missing) Result panel 383 Specimen collection (procedure) (no date) [facility] (missing) (missing) (missing) Result panel 384 Specimen collection (procedure) (no date) [facility] (missing) (missing) (missing) Result panel 385 Specimen collection (procedure) (no date) [facility] (missing) (missing) (missing) Result panel 386 Specimen collection (procedure) (no date) [facility] (missing) (missing) (missing) Result panel 387 Specimen collection (procedure) (no date) [facility] (missing) (missing) (missing) Result panel 388 Specimen collection (procedure) (no date) [facility] (missing) (missing) (missing) Result panel 389 Specimen collection (procedure) (no date) [facility] (missing) (missing) (missing) Result panel 390 Specimen collection (procedure) (no date) [facility] (missing) (missing) (missing) Result panel 391 Specimen collection (procedure) (no date) [facility] (missing) (missing) (missing) Result panel 392 Specimen collection (procedure) (no date) [facility] (missing) (missing) (missing) Result panel 393 Specimen collection (procedure) (no date) [facility] (missing) (missing) (missing) Result panel 394 Specimen collection (procedure) (no date) [facility] (missing) (missing) (missing) Result panel 395 Specimen collection (procedure) (no date) [facility] (missing) (missing) (missing) Result panel 396 Specimen collection (procedure) (no date) [facility] (missing) (missing) (missing) Result panel 397 Specimen collection (procedure) (no date) [facility] (missing) (missing) (missing) Result panel 398 Specimen collection (procedure) (no date) [facility] (missing) (missing) (missing) Result panel 399 Specimen collection (procedure) (no date) [facility] (missing) (missing) (missing) Result panel 400 Specimen collection (procedure) (no date) [facility] (missing) (missing) (missing) Result panel 401 Specimen collection (procedure) (no date) [facility] (missing) (missing) (missing) Result panel 402 Specimen collection (procedure) (no date) [facility] (missing) (missing) (missing) Result panel 403 Specimen collection (procedure) (no date) [facility] (missing) (missing) (missing) Result panel 404 Specimen collection (procedure) (no date) [facility] (missing) (missing) (missing) Result panel 405 Specimen collection (procedure) (no date) [facility] [facility] (missing[facility] (missing) Result panel 406 Specimen collection (procedure) (no date) [facility] (missing) (missing) (missing) Result panel 407 Specimen collection (procedure) (no date) [facility] (missing) (missing) (missing) Result panel 408 Specimen collection (procedure) (no date) [facility] (missing) (missing) (missing) Result panel 409 Specimen collection (procedure) (no date) [facility] (missing) (missing) (missing) Result panel 410 Specimen collection (procedure) (no date) [facility] (missing) (missing) (missing) Result panel 411 Specimen collection (procedure) (no date) [facility] (missing) (missing) (missing) Result panel 412 Specimen collection (procedure) (no date) [facility] (missing) (missing) (missing) Result panel 413 Specimen collection (procedure) (no date) [facility] (missing) (missing) (missing) Result panel 414 Specimen collection (procedure) (no date) [facility] (missing) (missing) (missing) Result panel 415 Specimen collection (procedure) (no date) [facility] (missing) (missing) (missing) Result panel 416 Specimen collection (procedure) (no date) [facility] (missing) (missing) (missing) Result panel 417 Specimen collection (procedure) (no date) [facility] (missing) (missing) (missing) Result panel 418 Specimen collection (procedure) (no date) [facility] (missing) (missing) (missing) Result panel 419 Specimen collection (procedure) (no date) [facility] (missing) (missing) (missing) Result panel 420 Specimen collection (procedure) (no date) [facility] (missing) (missing) (missing) Result panel 421 Specimen collection (procedure) (no date) [facility] (missing) (missing) (missing) Result panel 422 Specimen collection (procedure) (no date) [facility] (missing) (missing) (missing) Result panel 423 Specimen collection (procedure) (no date) [facility] (missing) (missing) (missing) Result panel 424 Specimen collection (procedure) (no date) [facility] (missing) (missing) (missing) Result panel 425 Specimen collection (procedure) (no date) [facility] (missing) (missing) (missing) Result panel 426 Specimen collection (procedure) (no date) [facility] (missing) (missing) (missing) Result panel 427 Specimen collection (procedure) (no date) [facility] (missing) (missing) (missing) Result panel 428 Specimen collection (procedure) (no date) [facility] (missing) (missing) (missing) Result panel 429 Specimen collection (procedure) (no date) [facility] (missing) (missing) (missing) Result panel 430 Specimen collection (procedure) (no date) [facility] (missing) (missing) (missing) Result panel 431 Specimen collection (procedure) (no date) [facility] (missing) (missing) (missing) Result panel 432 Specimen collection (procedure) (no date) [facility] (missing) (missing) (missing) Result panel 433 Specimen collection (procedure) (no date) [facility] (missing) (missing) (missing) Result panel 434 Specimen collection (procedure) (no date) [facility] (missing) (missing) (missing) Result panel 435 Specimen collection (procedure) (no date) [facility] (missing) (missing) (missing) Result panel 436 Specimen collection (procedure) (no date) [facility] (missing) (missing) (missing) Result panel 437 Specimen collection (procedure) (no date) [facility] (missing) (missing) (missing) Result panel 438 Specimen collection (procedure) (no date) [facility] (missing) (missing) (missing) Result panel 439 Specimen collection (procedure) (no date) [facility] (missing) (missing) (missing) Result panel 440 Specimen collection (procedure) (no date) [facility] (missing) (missing) (missing) Result panel 441 Specimen collection (procedure) (no date) [facility] (missing) (missing) (missing) Result panel 442 Specimen collection (procedure) (no date) [facility] (missing) (missing) (missing) Result panel 443 Specimen collection (procedure) (no date) [facility] (missing) (missing) (missing) Result panel 444 Specimen collection (procedure) (no date) [facility] (missing) (missing) (missing) Result panel 445 Specimen collection (procedure) (no date) [facility] (missing) (missing) (missing) Result panel 446 Specimen collection (procedure) (no date) [facility] (missing) (missing) (missing) Result panel 447 Specimen collection (procedure) (no date) [facility] (missing) (missing) (missing) Result panel 448 Specimen collection (procedure) (no date) [facility] (missing) (missing) (missing) Result panel 449 Specimen collection (procedure) (no date) [facility] (missing) (missing) (missing) Result panel 450 Specimen collection (procedure) (no date) [facility] (missing) (missing) (missing) Result panel 451 Specimen collection (procedure) (no date) [facility] (missing) (missing) (missing) Result panel 452 Specimen collection (procedure) (no date) [facility] (missing) (missing) (missing) Result panel 453 Specimen collection (procedure) (no date) [facility] (missing) (missing) (missing) Result panel 454 Specimen collection (procedure) (no date) [facility] (missing) (missing) (missing) Result panel 455 Specimen collection (procedure) (no date) [facility] (missing) (missing) (missing) Result panel 456 Specimen collection (procedure) (no date) [facility] (missing) (missing) (missing) Result panel 457 Specimen collection (procedure) (no date) [facility] (missing) (missing) (missing) Result panel 458 Specimen collection (procedure) (no date) [facility] (missing) (missing) (missing) Result panel 459 Specimen collection (procedure) (no date) [facility] (missing) (missing) (missing) Result panel 460 Specimen collection (procedure) (no date) [facility] (missing) (missing) (missing) Result panel 461 Specimen collection (procedure) (no date) [facility] (missing) (missing) (missing) Result panel 462 Specimen collection (procedure) (no date) [facility] (missing) (missing) (missing) Result panel 463 Specimen collection (procedure) (no date) [facility] (missing) (missing) (missing) Result panel 464 Specimen collection (procedure) (no date) [facility] (missing) (missing) (missing) Result panel 465 Specimen collection (procedure) (no date) [facility] (missing) (missing) (missing) Result panel 466 Specimen collection (procedure) (no date) [facility] (missing) (missing) (missing) Result panel 467 Specimen collection (procedure) (no date) [facility] (missing) (missing) (missing) Result panel 468 Specimen collection (procedure) (no date) [facility] (missing) (missing) (missing) Result panel 469 Specimen collection (procedure) (no date) [facility] (missing) (missing) (missing) Result panel 470 Specimen collection (procedure) (no date) [facility] (missing) (missing) (missing) Result panel 471 Specimen collection (procedure) (no date) [facility] (missing) (missing) (missing) Result panel 472 Specimen collection (procedure) (no date) [facility] (missing) (missing) (missing) Result panel 473 Specimen collection (procedure) (no date) [facility] (missing) (missing) (missing) Result panel 474 Specimen collection (procedure) (no date) [facility] (missing) (missing) (missing) Result panel 475 Specimen collection (procedure) (no date) [facility] (missing) (missing) (missing) Result panel 476 Specimen collection (procedure) (no date) [facility] (missing) (missing) (missing) Result panel 477 Specimen collection (procedure) (no date) [facility] (missing) (missing) (missing) Result panel 478 Specimen collection (procedure) (no date) [facility] (missing) (missing) (missing) Result panel 479 Specimen collection (procedure) (no date) [facility] (missing) (missing) (missing) Result panel 480 Specimen collection (procedure) (no date) [facility] (missing) (missing) (missing) Result panel 481 Specimen collection (procedure) (no date) [facility] (missing) (missing) (missing) Result panel 482 Specimen collection (procedure) (no date) [facility] (missing) (missing) (missing) Result panel 483 Specimen collection (procedure) (no date) [facility] (missing) (missing) (missing) Result panel 484 Specimen collection (procedure) (no date) [facility] (missing) (missing) (missing) Result panel 485 Specimen collection (procedure) (no date) [facility] (missing) (missing) (missing) Result panel 486 Specimen collection (procedure) (no date) [facility] (missing) (missing) (missing) Result panel 487 Specimen collection (procedure) (no date) [facility] (missing) (missing) (missing) Result panel 488 Specimen collection (procedure) (no date) [facility] (missing) (missing) (missing) Result panel 489 Specimen collection (procedure) (no date) [facility] (missing) (missing) (missing) Result panel 490 Specimen collection (procedure) (no date) [facility] (missing) (missing) (missing) Result panel 491 Specimen collection (procedure) (no date) [facility] (missing) (missing) (missing) Result panel 492 Specimen collection (procedure) (no date) [facility] (missing) (missing) (missing) Result panel 493 Specimen collection (procedure) (no date) [facility] (missing) (missing) (missing) Result panel 494 Specimen collection (procedure) (no date) [facility] (missing) (missing) (missing) Result panel 495 Specimen collection (procedure) (no date) [facility] (missing) (missing) (missing) Result panel 496 Specimen collection (procedure) (no date) [facility] (missing) (missing) (missing) Result panel 497 Specimen collection (procedure) (no date) [facility] (missing) (missing) (missing) Result panel 498 Specimen collection (procedure) (no date) [facility] (missing) (missing) (missing) Result panel 499 Specimen collection (procedure) (no date) [facility] (missing) (missing) (missing) Result panel 500 Specimen collection (procedure) (no date) [facility] (missing) (missing) (missing) Result panel 501 Specimen collection (procedure) (no date) [facility] (missing) (missing) (missing) Result panel 502 Specimen collection (procedure) (no date) [facility] (missing) (missing) (missing) Result panel 503 Specimen collection (procedure) (no date) [facility] (missing) (missing) (missing) Result panel 504 Specimen collection (procedure) (no date) [facility] (missing) (missing) (missing) Result panel 505 Specimen collection (procedure) (no date) [facility] (missing) (missing) (missing) Result panel 506 Specimen collection (procedure) (no date) [facility] (missing) (missing) (missing) Result panel 507 Specimen collection (procedure) (no date) [facility] (missing) (missing) (missing) Result panel 508 Specimen collection (procedure) (no date) [facility] (missing) (missing) (missing) Result panel 509 Specimen collection (procedure) (no date) [facility] (missing) (missing) (missing) Result panel 510 Specimen collection (procedure) (no date) [facility] (missing) (missing) (missing) Result panel 511 Specimen collection (procedure) (no date) [facility] (missing) (missing) (missing) Result panel 512 Specimen collection (procedure) (no date) [facility] (missing) (missing) (missing) Result panel 513 Specimen collection (procedure) (no date) [facility] (missing) (missing) (missing) Result panel 514 Specimen collection (procedure) (no date) [facility] (missing) (missing) (missing) Result panel 515 Specimen collection (procedure) (no date) [facility] (missing) (missing) (missing) Result panel 516 Specimen collection (procedure) (no date) [facility] (missing) (missing) (missing) Result panel 517 Specimen collection (procedure) (no date) [facility] (missing) (missing) (missing) Result panel 518 Specimen collection (procedure) (no date) [facility] (missing) (missing) (missing) Result panel 519 Specimen collection (procedure) (no date) [facility] (missing) (missing) (missing) Result panel 520 Specimen collection (procedure) (no date) [facility] (missing) (missing) (missing) Result panel 521 Specimen collection (procedure) (no date) [facility] (missing) (missing) (missing) Result panel 522 Specimen collection (procedure) (no date) [facility] (missing) (missing) (missing) Result panel 523 Specimen collection (procedure) (no date) [facility] (missing) (missing) (missing) Result panel 524 Specimen collection (procedure) (no date) [facility] (missing) (missing) (missing) Result panel 525 Specimen collection (procedure) (no date) [facility] (missing) (missing) (missing) Result panel 526 Specimen collection (procedure) (no date) [facility] (missing) (missing) (missing) Result panel 527 Specimen collection (procedure) (no date) [facility] (missing) (missing) (missing) Result panel 528 Specimen collection (procedure) (no date) [facility] (missing) (missing) (missing) Result panel 529 Specimen collection (procedure) (no date) [facility] (missing) (missing) (missing) Result panel 530 Specimen collection (procedure) (no date) [facility] (missing) (missing) (missing) Result panel 531 Specimen collection (procedure) (no date) [facility] (missing) (missing) (missing) Result panel 532 Specimen collection (procedure) (no date) [facility] (missing) (missing) (missing) Result panel 533 Specimen collection (procedure) (no date) [facility] (missing) (missing) (missing) Result panel 534 Specimen collection (procedure) (no date) [facility] (missing) (missing) (missing) Result panel 535 Specimen collection (procedure) (no date) [facility] (missing) (missing) (missing) Result panel 536 Specimen collection (procedure) (no date) [facility] (missing) (missing) (missing) Result panel 537 Specimen collection (procedure) (no date) [facility] (missing) (missing) (missing) Result panel 538 Specimen collection (procedure) (no date) [facility] (missing) (missing) (missing) Result panel 539 Specimen collection (procedure) (no date) [facility] (missing) (missing) (missing) Result panel 540 Specimen collection (procedure) (no date) [facility] (missing) (missing) (missing) Result panel 541 Specimen collection (procedure) (no date) [facility] (missing) (missing) (missing) Result panel 542 Specimen collection (procedure) (no date) [facility] (missing) (missing) (missing) Result panel 543 Specimen collection (procedure) (no date) [facility] (missing) (missing) (missing) Result panel 544 Specimen collection (procedure) (no date) [facility] (missing) (missing) (missing) Result panel 545 Specimen collection (procedure) (no date) [facility] (missing) (missing) (missing) Result panel 546 Specimen collection (procedure) (no date) [facility] (missing) (missing) (missing) Result panel 547 Specimen collection (procedure) (no date) [facility] (missing) (missing) (missing) Result panel 548 Specimen collection (procedure) (no date) [facility] (missing) (missing) (missing) Result panel 549 Specimen collection (procedure) (no date) [facility] (missing) (missing) (missing) Result panel 550 Specimen collection (procedure) (no date) [facility] (missing) (missing) (missing) Result panel 551 Specimen collection (procedure) (no date) [facility] (missing) (missing) (missing) Result panel 552 Specimen collection (procedure) (no date) [facility] (missing) (missing) (missing) Result panel 553 Specimen collection (procedure) (no date) [facility] (missing) (missing) (missing) Result panel 554 Specimen collection (procedure) (no date) [facility] (missing) (missing) (missing) Result panel 555 Specimen collection (procedure) (no date) [facility] (missing) (missing) (missing) Result panel 556 Specimen collection (procedure) (no date) [facility] (missing) (missing) (missing) Result panel 557 Specimen collection (procedure) (no date) [facility] (missing) (missing) (missing) Result panel 558 Specimen collection (procedure) (no date) [facility] (missing) (missing) (missing) Result panel 559 Specimen collection (procedure) (no date) [facility] (missing) (missing) (missing) Result panel 560 Specimen collection (procedure) (no date) [facility] (missing) (missing) (missing) Result panel 561 Specimen collection (procedure) (no date) [facility] (missing) (missing) (missing) Result panel 562 Specimen collection (procedure) (no date) [facility] (missing) (missing) (missing) Result panel 563 Specimen collection (procedure) (no date) [facility] (missing) (missing) (missing) Result panel 564 Specimen collection (procedure) (no date) [facility] (missing) (missing) (missing) Result panel 565 Specimen collection (procedure) (no date) [facility] (missing) (missing) (missing) Result panel 566 Specimen collection (procedure) (no date) [facility] (missing) (missing) (missing) Result panel 567 Specimen collection (procedure) (no date) [facility] (missing) (missing) (missing) Result panel 568 Specimen collection (procedure) (no date) [facility] (missing) (missing) (missing) Result panel 569 Specimen collection (procedure) (no date) [facility] (missing) (missing) (missing) Result panel 570 Specimen collection (procedure) (no date) [facility] (missing) (missing) (missing) Result panel 571 Specimen collection (procedure) (no date) [facility] (missing) (missing) (missing) Result panel 572 Specimen collection (procedure) (no date) [facility] (missing) (missing) (missing) Result panel 573 Specimen collection (procedure) (no date) [facility] (missing) (missing) (missing) Result panel 574 Specimen collection (procedure) (no date) [facility] (missing) (missing) (missing) Result panel 575 Specimen collection (procedure) (no date) [facility] (missing) (missing) (missing) Result panel 576 Specimen collection (procedure) (no date) [facility] (missing) (missing) (missing) Result panel 577 Specimen collection (procedure) (no date) [facility] (missing) (missing) (missing) Result panel 578 Specimen collection (procedure) (no date) [facility] (missing) (missing) (missing) Result panel 579 Specimen collection (procedure) (no date) [facility] (missing) (missing) (missing) Result panel 580 Specimen collection (procedure) (no date) [facility] (missing) (missing) (missing) Result panel 581 Specimen collection (procedure) (no date) [facility] (missing) (missing) (missing) Result panel 582 Specimen collection (procedure) (no date) [facility] (missing) (missing) (missing) Result panel 583 Specimen collection (procedure) (no date) [facility] (missing) (missing) (missing) Result panel 584 Specimen collection (procedure) (no date) [facility] (missing) (missing) (missing) Result panel 585 Specimen collection (procedure) (no date) [facility] (missing) (missing) (missing) Result panel 586 Specimen collection (procedure) (no date) [facility] (missing) (missing) (missing) Result panel 587 Specimen collection (procedure) (no date) [facility] (missing) (missing) (missing) Result panel 588 Specimen collection (procedure) (no date) [facility] (missing) (missing) (missing) Result panel 589 Specimen collection (procedure) (no date) [facility] (missing) (missing) (missing) Result panel 590 Specimen collection (procedure) (no date) [facility] (missing) (missing) (missing) Result panel 591 Specimen collection (procedure) (no date) [facility] (missing) (missing) (missing) Result panel 592 Specimen collection (procedure) (no date) [facility] (missing) (missing) (missing) Result panel 593 Specimen collection (procedure) (no date) [facility] (missing) (missing) (missing) Result panel 594 Specimen collection (procedure) (no date) [facility] (missing) (missing) (missing) Result panel 595 Specimen collection (procedure) (no date) [facility] (missing) (missing) (missing) Result panel 596 Specimen collection (procedure) (no date) [facility] (missing) (missing) (missing) Result panel 597 Specimen collection (procedure) (no date) [facility] (missing) (missing) (missing) Result panel 598 Specimen collection (procedure) (no date) [facility] (missing) (missing) (missing) Result panel 599 Specimen collection (procedure) (no date) [facility] (missing) (missing) (missing) Result panel 600 Specimen collection (procedure) (no date) [facility] (missing) (missing) (missing) Result panel 601 Specimen collection (procedure) (no date) [facility] (missing) (missing) (missing) Result panel 602 Specimen collection (procedure) (no date) [facility] (missing) (missing) (missing) Result panel 603 Specimen collection (procedure) (no date) [facility] (missing) (missing) (missing) Result panel 604 Specimen collection (procedure) (no date) [facility] (missing) (missing) (missing) Result panel 605 Specimen collection (procedure) (no date) [facility] (missing) (missing) (missing) Result panel 606 Specimen collection (procedure) (no date) [facility] (missing) (missing) (missing) Result panel 607 Specimen collection (procedure) (no date) [facility] (missing) (missing) (missing) Result panel 608 Specimen collection (procedure) (no date) [facility] (missing) (missing) (missing) Result panel 609 Specimen collection (procedure) (no date) [facility] (missing) (missing) (missing) Result panel 610 Specimen collection (procedure) (no date) [facility] (missing) (missing) (missing) Result panel 611 Specimen collection (procedure) (no date) [facility] (missing) (missing) (missing) Result panel 612 Specimen collection (procedure) (no date) [facility] (missing) (missing) (missing) Result panel 613 Specimen collection (procedure) (no date) [facility] (missing) (missing) (missing) Result panel 614 Specimen collection (procedure) (no date) [facility] (missing) (missing) (missing) Result panel 615 Specimen collection (procedure) (no date) [facility] (missing) (missing) (missing) Result panel 616 Specimen collection (procedure) (no date) [facility] (missing) (missing) (missing) Result panel 617 Specimen collection (procedure) (no date) [facility] (missing) (missing) (missing) Result panel 618 Specimen collection (procedure) (no date) [facility] (missing) (missing) (missing) Result panel 619 Specimen collection (procedure) (no date) [facility] (missing) (missing) (missing) Result panel 620 Specimen collection (procedure) (no date) [facility] (missing) (missing) (missing) Result panel 621 Specimen collection (procedure) (no date) [facility] (missing) (missing) (missing) Result panel 622 Specimen collection (procedure) (no date) [facility] (missing) (missing) (missing) Result panel 623 Specimen collection (procedure) (no date) [facility] (missing) (missing) (missing) Result panel 624 Specimen collection (procedure) (no date) [facility] (missing) (missing) (missing) Result panel 625 Specimen collection (procedure) (no date) [facility] (missing) (missing) (missing) Result panel 626 Specimen collection (procedure) (no date) [facility] (missing) (missing) (missing) Result panel 627 Specimen collection (procedure) (no date) [facility] (missing) (missing) (missing) Result panel 628 Specimen collection (procedure) (no date) [facility] (missing) (missing) (missing) Result panel 629 Specimen collection (procedure) (no date) [facility] (missing) (missing) (missing) Result panel 630 Specimen collection (procedure) (no date) [facility] (missing) (missing) (missing) Result panel 631 Specimen collection (procedure) (no date) [facility] (missing) (missing) (missing) Result panel 632 Specimen collection (procedure) (no date) [facility] (missing) (missing) (missing) Result panel 633 Specimen collection (procedure) (no date) [facility] (missing) (missing) (missing) Result panel 634 Specimen collection (procedure) (no date) [facility] (missing) (missing) (missing) Result panel 635 Specimen collection (procedure) (no date) [facility] (missing) (missing) (missing) Result panel 636 Specimen collection (procedure) (no date) [facility] (missing) (missing) (missing) Result panel 637 Specimen collection (procedure) (no date) [facility] (missing) (missing) (missing) Result panel 638 Specimen collection (procedure) (no date) [facility] (missing) (missing) (missing) Result panel 639 Specimen collection (procedure) (no date) [facility] (missing) (missing) (missing) Result panel 640 Specimen collection (procedure) (no date) [facility] (missing) (missing) (missing) Result panel 641 Specimen collection (procedure) (no date) [facility] (missing) (missing) (missing) Result panel 642 Specimen collection (procedure) (no date) [facility] (missing) (missing) (missing) Result panel 643 Specimen collection (procedure) (no date) [facility] (missing) (missing) (missing) Result panel 644 Specimen collection (procedure) (no date) [facility] (missing) (missing) (missing) Result panel 645 Specimen collection (procedure) (no date) [facility] (missing) (missing) (missing) Result panel 646 Specimen collection (procedure) (no date) [facility] (missing) (missing) (missing) Result panel 647 Specimen collection (procedure) (no date) [facility] (missing) (missing) (missing) Result panel 648 Specimen collection (procedure) (no date) [facility] (missing) (missing) (missing) Result panel 649 Specimen collection (procedure) (no date) [facility] (missing) (missing) (missing) Result panel 650 Specimen collection (procedure) (no date) [facility] (missing) (missing) (missing) Result panel 651 Specimen collection (procedure) (no date) [facility] (missing) (missing) (missing) Result panel 652 Specimen collection (procedure) (no date) [facility] (missing) (missing) (missing) Result panel 653 Specimen collection (procedure) (no date) [facility] (missing) (missing) (missing) Result panel 654 Specimen collection (procedure) (no date) [facility] (missing) (missing) (missing) Result panel 655 Specimen collection (procedure) (no date) [facility] (missing) (missing) (missing) Result panel 656 Specimen collection (procedure) (no date) [facility] (missing) (missing) (missing) Result panel 657 Specimen collection (procedure) (no date) [facility] (missing) (missing) (missing) Result panel 658 Specimen collection (procedure) (no date) [facility] (missing) (missing) (missing) Result panel 659 Specimen collection (procedure) (no date) [facility] (missing) (missing) (missing) Result panel 660 Specimen collection (procedure) (no date) [facility] (missing) (missing) (missing) Result panel 661 Specimen collection (procedure) (no date) [facility] (missing) (missing) (missing) Result panel 662 Specimen collection (procedure) (no date) [facility] (missing) (missing) (missing) Result panel 663 Specimen collection (procedure) (no date) [facility] (missing) (missing) (missing) Result panel 664 Specimen collection (procedure) (no date) [facility] (missing) (missing) (missing) Result panel 665 Specimen collection (procedure) (no date) [facility] (missing) (missing) (missing) Result panel 666 Specimen collection (procedure) (no date) [facility] (missing) (missing) (missing) Result panel 667 Specimen collection (procedure) (no date) [facility] (missing) (missing) (missing) Result panel 668 Specimen collection (procedure) (no date) [facility] (missing) (missing) (missing) Result panel 669 Specimen collection (procedure) (no date) [facility] (missing) (missing) (missing) Result panel 670 Specimen collection (procedure) (no date) [facility] (missing) (missing) (missing) Result panel 671 Specimen collection (procedure) (no date) [facility] (missing) (missing) (missing) Result panel 672 Specimen collection (procedure) (no date) [facility] (missing) (missing) (missing) Result panel 673 Specimen collection (procedure) (no date) [facility] (missing) (missing) (missing) Result panel 674 Specimen collection (procedure) (no date) [facility] (missing) (missing) (missing) Result panel 675 Specimen collection (procedure) (no date) [facility] (missing) (missing) (missing) Result panel 676 Specimen collection (procedure) (no date) [facility] (missing) (missing) (missing) Result panel 677 Specimen collection (procedure) (no date) [facility] (missing) (missing) (missing) Result panel 678 Specimen collection (procedure) (no date) [facility] (missing) (missing) (missing) Result panel 679 Specimen collection (procedure) (no date) [facility] (missing) (missing) (missing) Result panel 680 Specimen collection (procedure) (no date) [facility] (missing) (missing) (missing) Result panel 681 Specimen collection (procedure) (no date) [facility] (missing) (missing) (missing) Result panel 682 Specimen collection (procedure) (no date) [facility] (missing) (missing) (missing) Result panel 683 Specimen collection (procedure) (no date) [facility] (missing) (missing) (missing) Result panel 684 Specimen collection (procedure) (no date) [facility] (missing) (missing) (missing) Result panel 685 Specimen collection (procedure) (no date) [facility] (missing) (missing) (missing) Result panel 686 Specimen collection (procedure) (no date) [facility] (missing) (missing) (missing) Result panel 687 Specimen collection (procedure) (no date) [facility] (missing) (missing) (missing) Result panel 688 Specimen collection (procedure) (no date) [facility] (missing) (missing) (missing) Result panel 689 Specimen collection (procedure) (no date) [facility] (missing) (missing) (missing) Result panel 690 Specimen collection (procedure) (no date) [facility] (missing) (missing) (missing) Result panel 691 Specimen collection (procedure) (no date) [facility] (missing) (missing) (missing) Result panel 692 Specimen collection (procedure) (no date) [facility] (missing) (missing) (missing) Result panel 693 Specimen collection (procedure) (no date) [facility] (missing) (missing) (missing) Result panel 694 Specimen collection (procedure) (no date) [facility] (missing) (missing) (missing) Result panel 695 Specimen collection (procedure) (no date) [facility] (missing) (missing) (missing) Result panel 696 Specimen collection (procedure) (no date) [facility] (missing) (missing) (missing) Result panel 697 Specimen collection (procedure) (no date) [facility] (missing) (missing) (missing) Result panel 698 Specimen collection (procedure) (no date) [facility] (missing) (missing) (missing) Result panel 699 Specimen collection (procedure) (no date) [facility] (missing) (missing) (missing) Result panel 700 Specimen collection (procedure) (no date) [facility] (missing) (missing) (missing) Result panel 701 Specimen collection (procedure) (no date) [facility] (missing) (missing) (missing) Result panel 702 Specimen collection (procedure) (no date) [facility] (missing) (missing) (missing) Result panel 703 Specimen collection (procedure) (no date) [facility] (missing) (missing) (missing) Result panel 704 Specimen collection (procedure) (no date) [facility] (missing) (missing) (missing) Result panel 705 Specimen collection (procedure) (no date) [facility] (missing) (missing) (missing) Result panel 706 Specimen collection (procedure) (no date) [facility] (missing) (missing) (missing) Result panel 707 Specimen collection (procedure) (no date) [facility] (missing) (missing) (missing) Result panel 708 Specimen collection (procedure) (no date) [facility] (missing) (missing) (missing) Result panel 709 Specimen collection (procedure) (no date) [facility] (missing) (missing) (missing) Result panel 710 Specimen collection (procedure) (no date) [facility] (missing) (missing) (missing) Result panel 711 Specimen collection (procedure) (no date) [facility] (missing) (missing) (missing) Result panel 712 Specimen collection (procedure) (no date) [facility] (missing) (missing) (missing) Result panel 713 Specimen collection (procedure) (no date) [facility] (missing) (missing) (missing) Result panel 714 Specimen collection (procedure) (no date) [facility] (missing) (missing) (missing) Result panel 715 Specimen collection (procedure) (no date) [facility] (missing) (missing) (missing) Result panel 716 Specimen collection (procedure) (no date) [facility] (missing) (missing) (missing) Result panel 717 Specimen collection (procedure) (no date) [facility] (missing) (missing) (missing) Result panel 718 Specimen collection (procedure) (no date) [facility] (missing) (missing) (missing) Result panel 719 Specimen collection (procedure) (no date) [facility] (missing) (missing) (missing) Result panel 720 Specimen collection (procedure) (no date) [facility] (missing) (missing) (missing) Result panel 721 Specimen collection (procedure) (no date) [facility] (missing) (missing) (missing) Result panel 722 Specimen collection (procedure) (no date) [facility] (missing) (missing) (missing) Result panel 723 Specimen collection (procedure) (no date) [facility] (missing) (missing) (missing) Result panel 724 Specimen collection (procedure) (no date) [facility] (missing) (missing) (missing) Result panel 725 Specimen collection (procedure) (no date) [facility] (missing) (missing) (missing) Result panel 726 Specimen collection (procedure) (no date) [facility] (missing) (missing) (missing) Result panel 727 Specimen collection (procedure) (no date) [facility] (missing) (missing) (missing) Result panel 728 Specimen collection (procedure) (no date) [facility] (missing) (missing) (missing) Result panel 729 Specimen collection (procedure) (no date) [facility] (missing) (missing) (missing) Result panel 730 Specimen collection (procedure) (no date) [facility] (missing) (missing) (missing) Result panel 731 Specimen collection (procedure) (no date) [facility] (missing) (missing) (missing) Result panel 732 Specimen collection (procedure) (no date) [facility] (missing) (missing) (missing) Result panel 733 Specimen collection (procedure) (no date) [facility] (missing) (missing) (missing) Result panel 734 Specimen collection (procedure) (no date) [facility] (missing) (missing) (missing) Result panel 735 Specimen collection (procedure) (no date) [facility] (missing) (missing) (missing) Result panel 736 Specimen collection (procedure) (no date) [facility] (missing) (missing) (missing) Result panel 737 Specimen collection (procedure) (no date) [facility] (missing) (missing) (missing) Result panel 738 Specimen collection (procedure) (no date) [facility] (missing) (missing) (missing) Result panel 739 Specimen collection (procedure) (no date) [facility] (missing) (missing) (missing) Result panel 740 Specimen collection (procedure) (no date) [facility] (missing) (missing) (missing) Result panel 741 Specimen collection (procedure) (no date) [facility] (missing) (missing) (missing) Result panel 742 Specimen collection (procedure) (no date) [facility] (missing) (missing) (missing) Result panel 743 Specimen collection (procedure) (no date) [facility] (missing) (missing) (missing) Result panel 744 Specimen collection (procedure) (no date) [facility] (missing) (missing) (missing) Result panel 745 Specimen collection (procedure) (no date) [facility] (missing) (missing) (missing) Result panel 746 Specimen collection (procedure) (no date) [facility] (missing) (missing) (missing) Result panel 747 Specimen collection (procedure) (no date) [facility] (missing) (missing) (missing) Result panel 748 Specimen collection (procedure) (no date) [facility] (missing) (missing) (missing) Result panel 749 Specimen collection (procedure) (no date) [facility] (missing) (missing) (missing) Result panel 750 Specimen collection (procedure) (no date) [facility] (missing) (missing) (missing) Result panel 751 Specimen collection (procedure) (no date) [facility] (missing) (missing) (missing) Result panel 752 Specimen collection (procedure) (no date) [facility] (missing) (missing) (missing) Result panel 753 Specimen collection (procedure) (no date) [facility] (missing) (missing) (missing) Result panel 754 Specimen collection (procedure) (no date) [facility] (missing) (missing) (missing) Result panel 755 Specimen collection (procedure) (no date) [facility] (missing) (missing) (missing) Result panel 756 Specimen collection (procedure) (no date) [facility] (missing) (missing) (missing) Result panel 757 Specimen collection (procedure) (no date) [facility] (missing) (missing) (missing) Result panel 758 Specimen collection (procedure) (no date) [facility] (missing) (missing) (missing) Result panel 759 Specimen collection (procedure) (no date) [facility] (missing) (missing) (missing) Result panel 760 Specimen collection (procedure) (no date) [facility] (missing) (missing) (missing) Result panel 761 Specimen collection (procedure) (no date) [facility] (missing) (missing) (missing) Result panel 762 Specimen collection (procedure) (no date) [facility] (missing) (missing) (missing) Result panel 763 Specimen collection (procedure) (no date) [facility] (missing) (missing) (missing) Result panel 764 Specimen collection (procedure) (no date) [facility] (missing) (missing) (missing) Result panel 765 Specimen collection (procedure) (no date) [facility] (missing) (missing) (missing) Result panel 766 Specimen collection (procedure) (no date) [facility] (missing) (missing) (missing) Result panel 767 Specimen collection (procedure) (no date) [facility] (missing) (missing) (missing) Result panel 768 Specimen collection (procedure) (no date) [facility] (missing) (missing) (missing) Result panel 769 Specimen collection (procedure) (no date) [facility] (missing) (missing) (missing) Result panel 770 Specimen collection (procedure) (no date) [facility] (missing) (missing) (missing) Result panel 771 Specimen collection (procedure) (no date) [facility] (missing) (missing) (missing) Result panel 772 Specimen collection (procedure) (no date) [facility] (missing) (missing) (missing) Result panel 773 Specimen collection (procedure) (no date) [facility] (missing) (missing) (missing) Result panel 774 Specimen collection (procedure) (no date) [facility] (missing) (missing) (missing) Result panel 775 Specimen collection (procedure) (no date) [facility] (missing) (missing) (missing) Result panel 776 Specimen collection (procedure) (no date) [facility] (missing) (missing) (missing) Result panel 777 Specimen collection (procedure) (no date) [facility] (missing) (missing) (missing) Result panel 778 Specimen collection (procedure) (no date) [facility] (missing) (missing) (missing) Result panel 779 Specimen collection (procedure) (no date) [facility] (missing) (missing) (missing) Result panel 780 Specimen collection (procedure) (no date) [facility] (missing) (missing) (missing) Result panel 781 Specimen collection (procedure) (no date) [facility] (missing) (missing) (missing) Result panel 782 Specimen collection (procedure) (no date) [facility] (missing) (missing) (missing) Result panel 783 Specimen collection (procedure) (no date) [facility] (missing) (missing) (missing) Result panel 784 Specimen collection (procedure) (no date) [facility] (missing) (missing) (missing) Result panel 785 Specimen collection (procedure) (no date) [facility] (missing) (missing) (missing) Result panel 786 Specimen collection (procedure) (no date) [facility] (missing) (missing) (missing) Result panel 787 Specimen collection (procedure) (no date) [facility] (missing) (missing) (missing) Result panel 788 Specimen collection (procedure) (no date) [facility] (missing) (missing) (missing) Result panel 789 Specimen collection (procedure) (no date) [facility] (missing) (missing) (missing) Result panel 790 Specimen collection (procedure) (no date) [facility] (missing) (missing) (missing) Result panel 791 Specimen collection (procedure) (no date) [facility] (missing) (missing) (missing) Result panel 792 Specimen collection (procedure) (no date) [facility] (missing) (missing) (missing) Result panel 793 Specimen collection (procedure) (no date) [facility] (missing) (missing) (missing) Result panel 794 Specimen collection (procedure) (no date) [facility] (missing) (missing) (missing) Result panel 795 Specimen collection (procedure) (no date) [facility] (missing) (missing) (missing) Result panel 796 Specimen collection (procedure) (no date) [facility] (missing) (missing) (missing) Result panel 797 Specimen collection (procedure) (no date) [facility] (missing) (missing) (missing) Result panel 798 Specimen collection (procedure) (no date) [facility] (missing) (missing) (missing) Result panel 799 Specimen collection (procedure) (no date) [facility] (missing) (missing) (missing) Result panel 800 Specimen collection (procedure) (no date) [facility] (missing) (missing) (missing) Result panel 801 Specimen collection (procedure) (no date) [facility] (missing) (missing) (missing) Result panel 802 Specimen collection (procedure) (no date) [facility] (missing) (missing) (missing) Result panel 803 Specimen collection (procedure) (no date) [facility] (missing) (missing) (missing) Result panel 804 Specimen collection (procedure) (no date) [facility] (missing) (missing) (missing) Result panel 805 Specimen collection (procedure) (no date) [facility] (missing) (missing) (missing) Result panel 806 Specimen collection (procedure) (no date) [facility] (missing) (missing) (missing) Result panel 807 Specimen collection (procedure) (no date) [facility] (missing) (missing) (missing) Result panel 808 Specimen collection (procedure) (no date) [facility] (missing) (missing) (missing) Result panel 809 Specimen collection (procedure) (no date) [facility] (missing) (missing) (missing) Result panel 810 Specimen collection (procedure) (no date) [facility] (missing) (missing) (missing) Result panel 811 Specimen collection (procedure) (no date) [facility] (missing) (missing) (missing) Result panel 812 Specimen collection (procedure) (no date) [facility] (missing) (missing) (missing) Result panel 813 Specimen collection (procedure) (no date) [facility] (missing) (missing) (missing) Result panel 814 Specimen collection (procedure) (no date) [facility] (missing) (missing) (missing) Result panel 815 Specimen collection (procedure) (no date) [facility] (missing) (missing) (missing) Result panel 816 Specimen collection (procedure) (no date) [facility] (missing) (missing) (missing) Result panel 817 Specimen collection (procedure) (no date) [facility] (missing) (missing) (missing) Result panel 818 Specimen collection (procedure) (no date) [facility] (missing) (missing) (missing) Result panel 819 Specimen collection (procedure) (no date) [facility] (missing) (missing) (missing) Result panel 820 Specimen collection (procedure) (no date) [facility] (missing) (missing) (missing) Result panel 821 Specimen collection (procedure) (no date) [facility] (missing) (missing) (missing) Result panel 822 Specimen collection (procedure) (no date) [facility] (missing) (missing) (missing) Result panel 823 Specimen collection (procedure) (no date) [facility] (missing) (missing) (missing) Result panel 824 Specimen collection (procedure) (no date) [facility] (missing) (missing) (missing) Result panel 825 Specimen collection (procedure) (no date) [facility] (missing) (missing) (missing) Result panel 826 Specimen collection (procedure) (no date) [facility] (missing) (missing) (missing) Result panel 827 Specimen collection (procedure) (no date) [facility] (missing) (missing) (missing) Result panel 828 Specimen collection (procedure) (no date) [facility] (missing) (missing) (missing) Result panel 829 Specimen collection (procedure) (no date) [facility] (missing) (missing) (missing) Result panel 830 Specimen collection (procedure) (no date) [facility] (missing) (missing) (missing) Result panel 831 Specimen collection (procedure) (no date) [facility] (missing) (missing) (missing) Result panel 832 Specimen collection (procedure) (no date) [facility] (missing) (missing) (missing) Result panel 833 Specimen collection (procedure) (no date) [facility] (missing) (missing) (missing) Result panel 834 Specimen collection (procedure) (no date) [facility] (missing) (missing) (missing) Result panel 835 Specimen collection (procedure) (no date) [facility] (missing) (missing) (missing) Result panel 836 Specimen collection (procedure) (no date) [facility] (missing) (missing) (missing) Result panel 837 Specimen collection (procedure) (no date) [facility] (missing) (missing) (missing) Result panel 838 Specimen collection (procedure) (no date) [facility] (missing) (missing) (missing) Result panel 839 Specimen collection (procedure) (no date) [facility] (missing) (missing) (missing) Result panel 840 Specimen collection (procedure) (no date) [facility] (missing) (missing) (missing) Result panel 841 Specimen collection (procedure) (no date) [facility] (missing) (missing) (missing) Result panel 842 Specimen collection (procedure) (no date) [facility] (missing) (missing) (missing) Result panel 843 Specimen collection (procedure) (no date) [facility] (missing) (missing) (missing) Result panel 844 Specimen collection (procedure) (no date) [facility] (missing) (missing) (missing) Result panel 845 Specimen collection (procedure) (no date) [facility] (missing) (missing) (missing) Result panel 846 Specimen collection (procedure) (no date) [facility] (missing) (missing) (missing) Result panel 847 Specimen collection (procedure) (no date) [facility] (missing) (missing) (missing) Result panel 848 Specimen collection (procedure) (no date) [facility] (missing) (missing) (missing) Result panel 849 Specimen collection (procedure) (no date) [facility] (missing) (missing) (missing) Result panel 850 Specimen collection (procedure) (no date) [facility] (missing) (missing) (missing) Result panel 851 Specimen collection (procedure) (no date) [facility] (missing) (missing) (missing) Result panel 852 Specimen collection (procedure) (no date) [facility] (missing) (missing) (missing) Result panel 853 Specimen collection (procedure) (no date) [facility] (missing) (missing) (missing) Result panel 854 Specimen collection (procedure) (no date) [facility] (missing) (missing) (missing) Result panel 855 Specimen collection (procedure) (no date) [facility] (missing) (missing) (missing) Result panel 856 Specimen collection (procedure) (no date) [facility] (missing) (missing) (missing) Result panel 857 Specimen collection (procedure) (no date) [facility] (missing) (missing) (missing) Result panel 858 Specimen collection (procedure) (no date) [facility] (missing) (missing) (missing) Result panel 859 Specimen collection (procedure) (no date) [facility] (missing) (missing) (missing) Result panel 860 Specimen collection (procedure) (no date) [facility] (missing) (missing) (missing) Result panel 861 Specimen collection (procedure) (no date) [facility] (missing) (missing) (missing) Result panel 862 Specimen collection (procedure) (no date) [facility] (missing) (missing) (missing) Result panel 863 Specimen collection (procedure) (no date) [facility] (missing) (missing) (missing) Result panel 864 Specimen collection (procedure) (no date) [facility] (missing) (missing) (missing) Result panel 865 Specimen collection (procedure) (no date) [facility] (missing) (missing) (missing) Result panel 866 Specimen collection (procedure) (no date) [facility] (missing) (missing) (missing) Result panel 867 Specimen collection (procedure) (no date) [facility] (missing) (missing) (missing) Result panel 868 Specimen collection (procedure) (no date) [facility] (missing) (missing) (missing) Result panel 869 Specimen collection (procedure) (no date) [facility] (missing) (missing) (missing) Result panel 870 Specimen collection (procedure) (no date) [facility] (missing) (missing) (missing) Result panel 871 Specimen collection (procedure) (no date) [facility] (missing) (missing) (missing) Result panel 872 Specimen collection (procedure) (no date) [facility] (missing) (missing) (missing) Result panel 873 Specimen collection (procedure) (no date) [facility] (missing) (missing) (missing) Result panel 874 Specimen collection (procedure) (no date) [facility] (missing) (missing) (missing) Result panel 875 Specimen collection (procedure) (no date) [facility] (missing) (missing) (missing) Result panel 876 Specimen collection (procedure) (no date) [facility] (missing) (missing) (missing) Result panel 877 Specimen collection (procedure) (no date) [facility] (missing) (missing) (missing) Result panel 878 Specimen collection (procedure) (no date) [facility] (missing) (missing) (missing) Result panel 879 Specimen collection (procedure) (no date) [facility] (missing) (missing) (missing) Result panel 880 Specimen collection (procedure) (no date) [facility] (missing) (missing) (missing) Result panel 881 Specimen collection (procedure) (no date) [facility] (missing) (missing) (missing) Result panel 882 Specimen collection (procedure) (no date) [facility] (missing) (missing) (missing) Result panel 883 Specimen collection (procedure) (no date) [facility] (missing) (missing) (missing) Result panel 884 Specimen collection (procedure) (no date) [facility] (missing) (missing) (missing) Result panel 885 Specimen collection (procedure) (no date) [facility] (missing) (missing) (missing) Result panel 886 Specimen collection (procedure) (no date) [facility] (missing) (missing) (missing) Result panel 887 Specimen collection (procedure) (no date) [facility] (missing) (missing) (missing) Result panel 888 Specimen collection (procedure) (no date) [facility] (missing) (missing) (missing) Result panel 889 Specimen collection (procedure) (no date) [facility] (missing) (missing) (missing) Result panel 890 Specimen collection (procedure) (no date) [facility] (missing) (missing) (missing) Result panel 891 Specimen collection (procedure) (no date) [facility] (missing) (missing) (missing) Result panel 892 Specimen collection (procedure) (no date) [facility] (missing) (missing) (missing) Result panel 893 Specimen collection (procedure) (no date) [facility] (missing) (missing) (missing) Result panel 894 Specimen collection (procedure) (no date) [facility] (missing) (missing) (missing) Result panel 895 Specimen collection (procedure) (no date) [facility] (missing) (missing) (missing) Result panel 896 Specimen collection (procedure) (no date) [facility] (missing) (missing) (missing) Result panel 897 Specimen collection (procedure) (no date) [facility] (missing) (missing) (missing) Result panel 898 Specimen collection (procedure) (no date) [facility] (missing) (missing) (missing) Result panel 899 Specimen collection (procedure) (no date) [facility] (missing) (missing) (missing) Result panel 900 Specimen collection (procedure) (no date) [facility] (missing) (missing) (missing) Result panel 901 Specimen collection (procedure) (no date) [facility] (missing) (missing) (missing) Result panel 902 Specimen collection (procedure) (no date) [facility] (missing) (missing) (missing) Result panel 903 Specimen collection (procedure) (no date) [facility] (missing) (missing) (missing) Result panel 904 Specimen collection (procedure) (no date) [facility] (missing) (missing) (missing) Result panel 905 Specimen collection (procedure) (no date) [facility] (missing) (missing) (missing) Result panel 906 Specimen collection (procedure) (no date) [facility] (missing) (missing) (missing) Result panel 907 Specimen collection (procedure) (no date) [facility] (missing) (missing) (missing) Result panel 908 Specimen collection (procedure) (no date) [facility] (missing) (missing) (missing) Result panel 909 Specimen collection (procedure) (no date) [facility] (missing) (missing) (missing) Result panel 910 Specimen collection (procedure) (no date) [facility] (missing) (missing) (missing) Result panel 911 Specimen collection (procedure) (no date) [facility] (missing) (missing) (missing) Result panel 912 Specimen collection (procedure) (no date) [facility] (missing) (missing) (missing) Result panel 913 Specimen collection (procedure) (no date) [facility] (missing) (missing) (missing) Result panel 914 Specimen collection (procedure) (no date) [facility] (missing) (missing) (missing) Result panel 915 Specimen collection (procedure) (no date) [facility] (missing) (missing) (missing) Result panel 916 Specimen collection (procedure) (no date) [facility] (missing) (missing) (missing) Result panel 917 Specimen collection (procedure) (no date) [facility] (missing) (missing) (missing) Result panel 918 Specimen collection (procedure) (no date) [facility] (missing) (missing) (missing) Result panel 919 Specimen collection (procedure) (no date) [facility] (missing) (missing) (missing) Result panel 920 Specimen collection (procedure) (no date) [facility] (missing) (missing) (missing) Result panel 921 Specimen collection (procedure) (no date) [facility] (missing) (missing) (missing) Result panel 922 Specimen collection (procedure) (no date) [facility] (missing) (missing) (missing) Result panel 923 Specimen collection (procedure) (no date) [facility] (missing) (missing) (missing) Result panel 924 Specimen collection (procedure) (no date) [facility] (missing) (missing) (missing) Result panel 925 Specimen collection (procedure) (no date) [facility] (missing) (missing) (missing) Result panel 926 Specimen collection (procedure) (no date) [facility] (missing) (missing) (missing) Result panel 927 Specimen collection (procedure) (no date) [facility] (missing) (missing) (missing) Result panel 928 Specimen collection (procedure) (no date) [facility] (missing) (missing) (missing) Result panel 929 Specimen collection (procedure) (no date) [facility] (missing) (missing) (missing) Result panel 930 Specimen collection (procedure) (no date) [facility] (missing) (missing) (missing) Result panel 931 Specimen collection (procedure) (no date) [facility] (missing) (missing) (missing) Result panel 932 Specimen collection (procedure) (no date) [facility] (missing) (missing) (missing) Result panel 933 Specimen collection (procedure) (no date) [facility] (missing) (missing) (missing) Result panel 934 Specimen collection (procedure) (no date) [facility] (missing) (missing) (missing) Result panel 935 Specimen collection (procedure) (no date) [facility] (missing) (missing) (missing) Result panel 936 Specimen collection (procedure) (no date) [facility] (missing) (missing) (missing) Result panel 937 Specimen collection (procedure) (no date) [facility] (missing) (missing) (missing) Result panel 938 Specimen collection (procedure) (no date) [facility] (missing) (missing) (missing) Result panel 939 Specimen collection (procedure) (no date) [facility] (missing) (missing) (missing) Result panel 940 Specimen collection (procedure) (no date) [facility] (missing) (missing) (missing) Result panel 941 Specimen collection (procedure) (no date) [facility] (missing) (missing) (missing) Result panel 942 Specimen collection (procedure) (no date) [facility] (missing) (missing) (missing) Result panel 943 Specimen collection (procedure) (no date) [facility] (missing) (missing) (missing) Result panel 944 Specimen collection (procedure) (no date) [facility] (missing) (missing) (missing) Result panel 945 Specimen collection (procedure) (no date) [facility] (missing) (missing) (missing) Result panel 946 Specimen collection (procedure) (no date) [facility] (missing) (missing) (missing) Result panel 947 Specimen collection (procedure) (no date) [facility] (missing) (missing) (missing) Result panel 948 Specimen collection (procedure) (no date) [facility] (missing) (missing) (missing) Result panel 949 Specimen collection (procedure) (no date) [facility] (missing) (missing) (missing) Result panel 950 Specimen collection (procedure) (no date) [facility] (missing) (missing) (missing) Result panel 951 Specimen collection (procedure) (no date) [facility] (missing) (missing) (missing) Result panel 952 Specimen collection (procedure) (no date) [facility] (missing) (missing) (missing) Result panel 953 Specimen collection (procedure) (no date) [facility] (missing) (missing) (missing) Result panel 954 Specimen collection (procedure) (no date) [facility] (missing) (missing) (missing) Result panel 955 Specimen collection (procedure) (no date) [facility] (missing) (missing) (missing) Result panel 956 Specimen collection (procedure) (no date) [facility] (missing) (missing) (missing) Result panel 957 Specimen collection (procedure) (no date) [facility] (missing) (missing) (missing) Result panel 958 Specimen collection (procedure) (no date) [facility] (missing) (missing) (missing) Result panel 959 Specimen collection (procedure) (no date) [facility] (missing) (missing) (missing) Result panel 960 Specimen collection (procedure) (no date) [facility] (missing) (missing) (missing) Result panel 961 Specimen collection (procedure) (no date) [facility] (missing) (missing) (missing) Result panel 962 Specimen collection (procedure) (no date) [facility] (missing) (missing) (missing) Result panel 963 Specimen collection (procedure) (no date) [facility] (missing) (missing) (missing) Result panel 964 Specimen collection (procedure) (no date) [facility] (missing) (missing) (missing) Result panel 965 Specimen collection (procedure) (no date) [facility] (missing) (missing) (missing) Result panel 966 Specimen collection (procedure) (no date) [facility] (missing) (missing) (missing) Result panel 967 Specimen collection (procedure) (no date) [facility] (missing) (missing) (missing) Result panel 968 Specimen collection (procedure) (no date) [facility] (missing) (missing) (missing) Result panel 969 Specimen collection (procedure) (no date) [facility] (missing) (missing) (missing) Result panel 970 Specimen collection (procedure) (no date) [facility] (missing) (missing) (missing) Result panel 971 Specimen collection (procedure) (no date) [facility] (missing) (missing) (missing) Result panel 972 Specimen collection (procedure) (no date) [facility] (missing) (missing) (missing) Result panel 973 Specimen collection (procedure) (no date) [facility] (missing) (missing) (missing) Result panel 974 Specimen collection (procedure) (no date) [facility] (missing) (missing) (missing) Result panel 975 Specimen collection (procedure) (no date) [facility] (missing) (missing) (missing) Result panel 976 Specimen collection (procedure) (no date) [facility] (missing) (missing) (missing) Result panel 977 Specimen collection (procedure) (no date) [facility] (missing) (missing) (missing) Result panel 978 Specimen collection (procedure) (no date) [facility] (missing) (missing) (missing) Result panel 979 Specimen collection (procedure) (no date) [facility] (missing) (missing) (missing) Result panel 980 Specimen collection (procedure) (no date) [facility] (missing) (missing) (missing) Result panel 981 Specimen collection (procedure) (no date) [facility] (missing) (missing) (missing) Result panel 982 Specimen collection (procedure) (no date) [facility] (missing) (missing) (missing) Result panel 983 Specimen collection (procedure) (no date) [facility] (missing) (missing) (missing) Result panel 984 Specimen collection (procedure) (no date) [facility] (missing) (missing) (missing) Result panel 985 Specimen collection (procedure) (no date) [facility] (missing) (missing) (missing) Result panel 986 Specimen collection (procedure) (no date) [facility] (missing) (missing) (missing) Result panel 987 Specimen collection (procedure) (no date) [facility] (missing) (missing) (missing) Result panel 988 Specimen collection (procedure) (no date) [facility] (missing) (missing) (missing) Result panel 989 Specimen collection (procedure) (no date) [facility] (missing) (missing) (missing) Result panel 990 Specimen collection (procedure) (no date) [facility] (missing) (missing) (missing) Result panel 991 Specimen collection (procedure) (no date) [facility] (missing) (missing) (missing) Result panel 992 Specimen collection (procedure) (no date) [facility] (missing) (missing) (missing) Result panel 993 Specimen collection (procedure) (no date) [facility] (missing) (missing) (missing) Result panel 994 Specimen collection (procedure) (no date) [facility] (missing) (missing) (missing) Result panel 995 Specimen collection (procedure) (no date) [facility] (missing) (missing) (missing) Result panel 996 Specimen collection (procedure) (no date) [facility] (missing) (missing) (missing) Result panel 997 Specimen collection (procedure) (no date) [facility] (missing) (missing) (missing) Result panel 998 Specimen collection (procedure) (no date) [facility] (missing) (missing) (missing) Result panel 999 Specimen collection (procedure) (no date) [facility] (missing) (missing) (missing) Result panel 1000 Specimen collection (procedure) (no date) [facility] (missing) (missing) (missing) Result panel 1001 Specimen collection (procedure) (no date) [facility] (missing) (missing) (missing) Result panel 1002 Specimen collection (procedure) (no date) [facility] (missing) (missing) (missing) Result panel 1003 Specimen collection (procedure) (no date) [facility] (missing) (missing) (missing) Result panel 1004 Specimen collection (procedure) (no date) [facility] (missing) (missing) (missing) Result panel 1005 Specimen collection (procedure) (no date) [facility] (missing) (missing) (missing) Result panel 1006 Specimen collection (procedure) (no date) [facility] (missing) (missing) (missing) Result panel 1007 Specimen collection (procedure) (no date) [facility] (missing) (missing) (missing) Result panel 1008 Specimen collection (procedure) (no date) [facility] (missing) (missing) (missing) Result panel 1009 Specimen collection (procedure) (no date) [facility] (missing) (missing) (missing) Result panel 1010 Specimen collection (procedure) (no date) [facility] (missing) (missing) (missing) Result panel 1011 Specimen collection (procedure) (no date) [facility] (missing) (missing) (missing) Result panel 1012 Specimen collection (procedure) (no date) [facility] (missing) (missing) (missing) Result panel 1013 Specimen collection (procedure) (no date) [facility] (missing) (missing) (missing) Result panel 1014 Specimen collection (procedure) (no date) [facility] (missing) (missing) (missing) Result panel 1015 Specimen collection (procedure) (no date) [facility] (missing) (missing) (missing) Result panel 1016 Specimen collection (procedure) (no date) [facility] (missing) (missing) (missing) Result panel 1017 Specimen collection (procedure) (no date) [facility] (missing) (missing) (missing) Result panel 1018 Specimen collection (procedure) (no date) [facility] (missing) (missing) (missing) Result panel 1019 Specimen collection (procedure) (no date) [facility] (missing) (missing) (missing) Result panel 1020 Specimen collection (procedure) (no date) [facility] (missing) (missing) (missing) Result panel 1021 Specimen collection (procedure) (no date) [facility] (missing) (missing) (missing) Result panel 1022 Specimen collection (procedure) (no date) [facility] (missing) (missing) (missing) Result panel 1023 Specimen collection (procedure) (no date) [facility] (missing) (missing) (missing) Result panel 1024 Specimen collection (procedure) (no date) [facility] (missing) (missing) (missing) Result panel 1025 Specimen collection (procedure) (no date) [facility] (missing) (missing) (missing) Result panel 1026 Specimen collection (procedure) (no date) [facility] (missing) (missing) (missing) Result panel 1027 Specimen collection (procedure) (no date) [facility] (missing) (missing) (missing) Result panel 1028 Specimen collection (procedure) (no date) [facility] (missing) (missing) (missing) Result panel 1029 Specimen collection (procedure) (no date) [facility] (missing) (missing) (missing) Result panel 1030 Specimen collection (procedure) (no date) [facility] (missing) (missing) (missing) Result panel 1031 Specimen collection (procedure) (no date) [facility] (missing) (missing) (missing) Result panel 1032 Specimen collection (procedure) (no date) [facility] (missing) (missing) (missing) Result panel 1033 Specimen collection (procedure) (no date) [facility] (missing) (missing) (missing) Result panel 1034 Specimen collection (procedure) (no date) [facility] (missing) (missing) (missing) Result panel 1035 Specimen collection (procedure) (no date) [facility] (missing) (missing) (missing) Result panel 1036 Specimen collection (procedure) (no date) [facility] (missing) (missing) (missing) Result panel 1037 Specimen collection (procedure) (no date) [facility] (missing) (missing) (missing) Result panel 1038 Specimen collection (procedure) (no date) [facility] (missing) (missing) (missing) Result panel 1039 Specimen collection (procedure) (no date) [facility] (missing) (missing) (missing) Result panel 1040 Specimen collection (procedure) (no date) [facility] (missing) (missing) (missing) Result panel 1041 Specimen collection (procedure) (no date) [facility] (missing) (missing) (missing) Result panel 1042 Specimen collection (procedure) (no date) [facility] (missing) (missing) (missing) Result panel 1043 Specimen collection (procedure) (no date) [facility] (missing) (missing) (missing) Result panel 1044 Specimen collection (procedure) (no date) [facility] (missing) (missing) (missing) Result panel 1045 Specimen collection (procedure) (no date) [facility] (missing) (missing) (missing) Result panel 1046 Specimen collection (procedure) (no date) [facility] (missing) (missing) (missing) Result panel 1047 Specimen collection (procedure) (no date) [facility] (missing) (missing) (missing) Result panel 1048 Specimen collection (procedure) (no date) [facility] (missing) (missing) (missing) Result panel 1049 Specimen collection (procedure) (no date) [facility] (missing) (missing) (missing) Result panel 1050 Specimen collection (procedure) (no date) [facility] (missing) (missing) (missing) Result panel 1051 Specimen collection (procedure) (no date) [facility] (missing) (missing) (missing) Result panel 1052 Specimen collection (procedure) (no date) [facility] (missing) (missing) (missing) Result panel 1053 Specimen collection (procedure) (no date) [facility] (missing) (missing) (missing) Result panel 1054 Specimen collection (procedure) (no date) [facility] (missing) (missing) (missing) Result panel 1055 Specimen collection (procedure) (no date) [facility] (missing) (missing) (missing) Result panel 1056 Specimen collection (procedure) (no date) [facility] (missing) (missing) (missing) Result panel 1057 Specimen collection (procedure) (no date) [facility] (missing) (missing) (missing) Result panel 1058 Specimen collection (procedure) (no date) [facility] (missing) (missing) (missing) Result panel 1059 Specimen collection (procedure) (no date) [facility] (missing) (missing) (missing) Result panel 1060 Specimen collection (procedure) (no date) [facility] (missing) (missing) (missing) Result panel 1061 Specimen collection (procedure) (no date) [facility] (missing) (missing) (missing) Result panel 1062 Specimen collection (procedure) (no date) [facility] (missing) (missing) (missing) Result panel 1063 Specimen collection (procedure) (no date) [facility] (missing) (missing) (missing) Result panel 1064 Specimen collection (procedure) (no date) [facility] (missing) (missing) (missing) Result panel 1065 Specimen collection (procedure) (no date) [facility] (missing) (missing) (missing) Result panel 1066 Specimen collection (procedure) (no date) [facility] (missing) (missing) (missing) Result panel 1067 Specimen collection (procedure) (no date) [facility] (missing) (missing) (missing) Result panel 1068 Specimen collection (procedure) (no date) [facility] (missing) (missing) (missing) Result panel 1069 Specimen collection (procedure) (no date) [facility] (missing) (missing) (missing) Result panel 1070 Specimen collection (procedure) (no date) [facility] (missing) (missing) (missing) Result panel 1071 Specimen collection (procedure) (no date) [facility] (missing) (missing) (missing) Result panel 1072 Specimen collection (procedure) (no date) [facility] (missing) (missing) (missing) Result panel 1073 Specimen collection (procedure) (no date) [facility] (missing) (missing) (missing) Result panel 1074 Specimen collection (procedure) (no date) [facility] (missing) (missing) (missing) Result panel 1075 Specimen collection (procedure) (no date) [facility] (missing) (missing) (missing) Result panel 1076 Specimen collection (procedure) (no date) [facility] (missing) (missing) (missing) Result panel 1077 Specimen collection (procedure) (no date) [facility] (missing) (missing) (missing) Result panel 1078 Specimen collection (procedure) (no date) [facility] (missing) (missing) (missing) Result panel 1079 Specimen collection (procedure) (no date) [facility] (missing) (missing) (missing) Result panel 1080 Specimen collection (procedure) (no date) [facility] (missing) (missing) (missing) Result panel 1081 Specimen collection (procedure) (no date) [facility] (missing) (missing) (missing) Result panel 1082 Specimen collection (procedure) (no date) [facility] (missing) (missing) (missing) Result panel 1083 Specimen collection (procedure) (no date) [facility] (missing) (missing) (missing) Result panel 1084 Specimen collection (procedure) (no date) [facility] (missing) (missing) (missing) Result panel 1085 Specimen collection (procedure) (no date) [facility] (missing) (missing) (missing) Result panel 1086 Specimen collection (procedure) (no date) [facility] (missing) (missing) (missing) Result panel 1087 Specimen collection (procedure) (no date) [facility] (missing) (missing) (missing) Result panel 1088 Specimen collection (procedure) (no date) [facility] (missing) (missing) (missing) Result panel 1089 Specimen collection (procedure) (no date) [facility] (missing) (missing) (missing) Result panel 1090 Specimen collection (procedure) (no date) [facility] (missing) (missing) (missing) Result panel 1091 Specimen collection (procedure) (no date) [facility] (missing) (missing) (missing) Result panel 1092 Specimen collection (procedure) (no date) [facility] (missing) (missing) (missing) Result panel 1093 Specimen collection (procedure) (no date) [facility] (missing) (missing) (missing) Result panel 1094 Specimen collection (procedure) (no date) [facility] (missing) (missing) (missing) Result panel 1095 Specimen collection (procedure) (no date) [facility] (missing) (missing) (missing) Result panel 1096 Specimen collection (procedure) (no date) [facility] (missing) (missing) (missing) Result panel 1097 Specimen collection (procedure) (no date) [facility] (missing) (missing) (missing) Result panel 1098 Specimen collection (procedure) (no date) [facility] (missing) (missing) (missing) Result panel 1099 Specimen collection (procedure) (no date) [facility] (missing) (missing) (missing) Result panel 1100 Specimen collection (procedure) (no date) [facility] (missing) (missing) (missing) Result panel 1101 Specimen collection (procedure) (no date) [facility] (missing) (missing) (missing) Result panel 1102 Specimen collection (procedure) (no date) [facility] (missing) (missing) (missing) Result panel 1103 Specimen collection (procedure) (no date) [facility] (missing) (missing) (missing) Result panel 1104 Specimen collection (procedure) (no date) [facility] (missing) (missing) (missing) Result panel 1105 Specimen collection (procedure) (no date) [facility] (missing) (missing) (missing) Result panel 1106 Specimen collection (procedure) (no date) [facility] (missing) (missing) (missing) Result panel 1107 Specimen collection (procedure) (no date) [facility] (missing) (missing) (missing) Result panel 1108 Specimen collection (procedure) (no date) [facility] (missing) (missing) (missing) Result panel 1109 Specimen collection (procedure) (no date) [facility] (missing) (missing) (missing) Result panel 1110 Specimen collection (procedure) (no date) [facility] (missing) (missing) (missing) Result panel 1111 Specimen collection (procedure) (no date) [facility] (missing) (missing) (missing) Result panel 1112 Specimen collection (procedure) (no date) [facility] (missing) (missing) (missing) Result panel 1113 Specimen collection (procedure) (no date) [facility] (missing) (missing) (missing) Result panel 1114 Specimen collection (procedure) (no date) [facility] (missing) (missing) (missing) Result panel 1115 Specimen collection (procedure) (no date) [facility] (missing) (missing) (missing) Result panel 1116 Specimen collection (procedure) (no date) [facility] (missing) (missing) (missing) Result panel 1117 Specimen collection (procedure) (no date) [facility] (missing) (missing) (missing) Result panel 1118 Specimen collection (procedure) (no date) [facility] (missing) (missing) (missing) Result panel 1119 Specimen collection (procedure) (no date) [facility] (missing) (missing) (missing) Result panel 1120 Specimen collection (procedure) (no date) [facility] (missing) (missing) (missing) Result panel 1121 Specimen collection (procedure) (no date) [facility] (missing) (missing) (missing) Result panel 1122 Specimen collection (procedure) (no date) [facility] (missing) (missing) (missing) Result panel 1123 Specimen collection (procedure) (no date) [facility] (missing) (missing) (missing) Result panel 1124 Specimen collection (procedure) (no date) [facility] (missing) (missing) (missing) Result panel 1125 Specimen collection (procedure) (no date) [facility] (missing) (missing) (missing) Result panel 1126 Specimen collection (procedure) (no date) [facility] (missing) (missing) (missing) Result panel 1127 Specimen collection (procedure) (no date) [facility] (missing) (missing) (missing) Result panel 1128 Specimen collection (procedure) (no date) [facility] (missing) (missing) (missing) Result panel 1129 Specimen collection (procedure) (no date) [facility] (missing) (missing) (missing) Result panel 1130 Specimen collection (procedure) (no date) [facility] (missing) (missing) (missing) Result panel 1131 Specimen collection (procedure) (no date) [facility] (missing) (missing) (missing) Result panel 1132 Specimen collection (procedure) (no date) [facility] (missing) (missing) (missing) Result panel 1133 Specimen collection (procedure) (no date) [facility] (missing) (missing) (missing) Result panel 1134 Specimen collection (procedure) (no date) [facility] (missing) (missing) (missing) Result panel 1135 Specimen collection (procedure) (no date) [facility] (missing) (missing) (missing) Result panel 1136 Specimen collection (procedure) (no date) [facility] (missing) (missing) (missing) Result panel 1137 Specimen collection (procedure) (no date) [facility] (missing) (missing) (missing) Result panel 1138 Specimen collection (procedure) (no date) [facility] (missing) (missing) (missing) Result panel 1139 Specimen collection (procedure) (no date) [facility] (missing) (missing) (missing) Result panel 1140 Specimen collection (procedure) (no date) [facility] (missing) (missing) (missing) Result panel 1141 Specimen collection (procedure) (no date) [facility] (missing) (missing) (missing) Result panel 1142 Specimen collection (procedure) (no date) [facility] (missing) (missing) (missing) Result panel 1143 Specimen collection (procedure) (no date) [facility] (missing) (missing) (missing) Result panel 1144 Specimen collection (procedure) (no date) [facility] (missing) (missing) (missing) Result panel 1145 Specimen collection (procedure) (no date) [facility] (missing) (missing) (missing) Result panel 1146 Specimen collection (procedure) (no date) [facility] (missing) (missing) (missing) Result panel 1147 Specimen collection (procedure) (no date) [facility] (missing) (missing) (missing) Result panel 1148 Specimen collection (procedure) (no date) [facility] (missing) (missing) (missing) Result panel 1149 Specimen collection (procedure) (no date) [facility] (missing) (missing) (missing) Result panel 1150 Specimen collection (procedure) (no date) [facility] (missing) (missing) (missing) Result panel 1151 Specimen collection (procedure) (no date) [facility] (missing) (missing) (missing) Result panel 1152 Specimen collection (procedure) (no date) [facility] (missing) (missing) (missing) Result panel 1153 Specimen collection (procedure) (no date) [facility] (missing) (missing) (missing) Result panel 1154 Specimen collection (procedure) (no date) [facility] (missing) (missing) (missing) Result panel 1155 Specimen collection (procedure) (no date) [facility] (missing) (missing) (missing) Result panel 1156 Specimen collection (procedure) (no date) [facility] (missing) (missing) (missing) Result panel 1157 Specimen collection (procedure) (no date) [facility] (missing) (missing) (missing) Result panel 1158 Specimen collection (procedure) (no date) [facility] (missing) (missing) (missing) Result panel 1159 Specimen collection (procedure) (no date) [facility] (missing) (missing) (missing) Result panel 1160 Specimen collection (procedure) (no date) [facility] (missing) (missing) (missing) Result panel 1161 Specimen collection (procedure) (no date) [facility] (missing) (missing) (missing) Result panel 1162 Specimen collection (procedure) (no date) [facility] (missing) (missing) (missing) Result panel 1163 Specimen collection (procedure) (no date) [facility] (missing) (missing) (missing) Result panel 1164 Specimen collection (procedure) (no date) [facility] (missing) (missing) (missing) Result panel 1165 Specimen collection (procedure) (no date) [facility] (missing) (missing) (missing) Result panel 1166 Specimen collection (procedure) (no date) [facility] (missing) (missing) (missing) Result panel 1167 Specimen collection (procedure) (no date) [facility] (missing) (missing) (missing) Result panel 1168 Specimen collection (procedure) (no date) [facility] (missing) (missing) (missing) Result panel 1169 Specimen collection (procedure) (no date) [facility] (missing) (missing) (missing) Result panel 1170 Specimen collection (procedure) (no date) [facility] (missing) (missing) (missing) Result panel 1171 Specimen collection (procedure) (no date) [facility] (missing) (missing) (missing) Result panel 1172 Specimen collection (procedure) (no date) [facility] (missing) (missing) (missing) Result panel 1173 Specimen collection (procedure) (no date) [facility] (missing) (missing) (missing) Result panel 1174 Specimen collection (procedure) (no date) [facility] (missing) (missing) (missing) Result panel 1175 Specimen collection (procedure) (no date) [facility] (missing) (missing) (missing) Result panel 1176 Specimen collection (procedure) (no date) [facility] (missing) (missing) (missing) Result panel 1177 Specimen collection (procedure) (no date) [facility] (missing) (missing) (missing) Result panel 1178 Specimen collection (procedure) (no date) [facility] (missing) (missing) (missing) Result panel 1179 Specimen collection (procedure) (no date) [facility] (missing) (missing) (missing) Result panel 1180 Specimen collection (procedure) (no date) [facility] (missing) (missing) (missing) Result panel 1181 Specimen collection (procedure) (no date) [facility] (missing) (missing) (missing) Result panel 1182 Specimen collection (procedure) (no date) [facility] (missing) (missing) (missing) Result panel 1183 Specimen collection (procedure) (no date) [facility] (missing) (missing) (missing) Result panel 1184 Specimen collection (procedure) (no date) [facility] (missing) (missing) (missing) Result panel 1185 Specimen collection (procedure) (no date) [facility] (missing) (missing) (missing) Result panel 1186 Specimen collection (procedure) (no date) [facility] (missing) (missing) (missing) Result panel 1187 Specimen collection (procedure) (no date) [facility] (missing) (missing) (missing) Result panel 1188 Specimen collection (procedure) (no date) [facility] (missing) (missing) (missing) Result panel 1189 Specimen collection (procedure) (no date) [facility] (missing) (missing) (missing) Result panel 1190 Specimen collection (procedure) (no date) [facility] (missing) (missing) (missing) Result panel 1191 Specimen collection (procedure) (no date) [facility] (missing) (missing) (missing) Result panel 1192 Specimen collection (procedure) (no date) [facility] (missing) (missing) (missing) Result panel 1193 Specimen collection (procedure) (no date) [facility] (missing) (missing) (missing) Result panel 1194 Specimen collection (procedure) (no date) [facility] (missing) (missing) (missing) Result panel 1195 Specimen collection (procedure) (no date) [facility] (missing) (missing) (missing) Result panel 1196 Specimen collection (procedure) (no date) [facility] (missing) (missing) (missing) Result panel 1197 Specimen collection (procedure) (no date) [facility] (missing) (missing) (missing) Result panel 1198 Specimen collection (procedure) (no date) [facility] (missing) (missing) (missing) Result panel 1199 Specimen collection (procedure) (no date) [facility] (missing) (missing) (missing) Result panel 1200 Specimen collection (procedure) (no date) [facility] (missing) (missing) (missing) Result panel 1201 Specimen collection (procedure) (no date) [facility] (missing) (missing) (missing) Result panel 1202 Specimen collection (procedure) (no date) [facility] (missing) (missing) (missing) Result panel 1203 Specimen collection (procedure) (no date) [facility] (missing) (missing) (missing) Result panel 1204 Specimen collection (procedure) (no date) [facility] (missing) (missing) (missing) Result panel 1205 Specimen collection (procedure) (no date) [facility] (missing) (missing) (missing) Result panel 1206 Specimen collection (procedure) (no date) [facility] (missing) (missing) (missing) Result panel 1207 Specimen collection (procedure) (no date) [facility] (missing) (missing) (missing) Result panel 1208 Specimen collection (procedure) (no date) [facility] (missing) (missing) (missing) Result panel 1209 Specimen collection (procedure) (no date) [facility] (missing) (missing) (missing) Result panel 1210 Specimen collection (procedure) (no date) [facility] (missing) (missing) (missing) Result panel 1211 Specimen collection (procedure) (no date) [facility] (missing) (missing) (missing) Result panel 1212 Specimen collection (procedure) (no date) [facility] (missing) (missing) (missing) Result panel 1213 Specimen collection (procedure) (no date) [facility] (missing) (missing) (missing) Result panel 1214 Specimen collection (procedure) (no date) [facility] (missing) (missing) (missing) Result panel 1215 Specimen collection (procedure) (no date) [facility] (missing) (missing) (missing) Result panel 1216 Specimen collection (procedure) (no date) [facility] (missing) (missing) (missing) Result panel 1217 Specimen collection (procedure) (no date) [facility] (missing) (missing) (missing) Result panel 1218 Specimen collection (procedure) (no date) [facility] (missing) (missing) (missing) Result panel 1219 Specimen collection (procedure) (no date) [facility] (missing) (missing) (missing) Result panel 1220 Specimen collection (procedure) (no date) [facility] (missing) (missing) (missing) Result panel 1221 Specimen collection (procedure) (no date) [facility] (missing) (missing) (missing) Result panel 1222 Specimen collection (procedure) (no date) [facility] (missing) (missing) (missing) Result panel 1223 Specimen collection (procedure) (no date) [facility] (missing) (missing) (missing) Result panel 1224 Specimen collection (procedure) (no date) [facility] (missing) (missing) (missing) Result panel 1225 Specimen collection (procedure) (no date) [facility] (missing) (missing) (missing) Result panel 1226 Specimen collection (procedure) (no date) [facility] (missing) (missing) (missing) Result panel 1227 Specimen collection (procedure) (no date) [facility] (missing) (missing) (missing) Result panel 1228 Specimen collection (procedure) (no date) [facility] (missing) (missing) (missing) Result panel 1229 Specimen collection (procedure) (no date) [facility] (missing) (missing) (missing) Result panel 1230 Specimen collection (procedure) (no date) [facility] (missing) (missing) (missing) Result panel 1231 Specimen collection (procedure) (no date) [facility] (missing) (missing) (missing) Result panel 1232 Specimen collection (procedure) (no date) [facility] (missing) (missing) (missing) Result panel 1233 Specimen collection (procedure) (no date) [facility] (missing) (missing) (missing) Result panel 1234 Specimen collection (procedure) (no date) [facility] (missing) (missing) (missing) Result panel 1235 Specimen collection (procedure) (no date) [facility] (missing) (missing) (missing) Result panel 1236 Specimen collection (procedure) (no date) [facility] (missing) (missing) (missing) Result panel 1237 Specimen collection (procedure) (no date) [facility] (missing) (missing) (missing) Result panel 1238 Specimen collection (procedure) (no date) [facility] (missing) (missing) (missing) Result panel 1239 Specimen collection (procedure) (no date) [facility] (missing) (missing) (missing) Result panel 1240 Specimen collection (procedure) (no date) [facility] (missing) (missing) (missing) Result panel 1241 Specimen collection (procedure) (no date) [facility] (missing) (missing) (missing) Result panel 1242 Specimen collection (procedure) (no date) [facility] (missing) (missing) (missing) Result panel 1243 Specimen collection (procedure) (no date) [facility] (missing) (missing) (missing) Result panel 1244 Specimen collection (procedure) (no date) [facility] (missing) (missing) (missing) Result panel 1245 Specimen collection (procedure) (no date) [facility] (missing) (missing) (missing) Result panel 1246 Specimen collection (procedure) (no date) [facility] (missing) (missing) (missing) Result panel 1247 Specimen collection (procedure) (no date) [facility] (missing) (missing) (missing) Result panel 1248 Specimen collection (procedure) (no date) [facility] (missing) (missing) (missing) Result panel 1249 Specimen collection (procedure) (no date) [facility] (missing) (missing) (missing) Result panel 1250 Specimen collection (procedure) (no date) [facility] (missing) (missing) (missing) Result panel 1251 Specimen collection (procedure) (no date) [facility] (missing) (missing) (missing) Result panel 1252 Specimen collection (procedure) (no date) [facility] (missing) (missing) (missing) Result panel 1253 Specimen collection (procedure) (no date) [facility] (missing) (missing) (missing) Result panel 1254 Specimen collection (procedure) (no date) [facility] (missing) (missing) (missing) Result panel 1255 Specimen collection (procedure) (no date) [facility] (missing) (missing) (missing) Result panel 1256 Specimen collection (procedure) (no date) [facility] (missing) (missing) (missing) Result panel 1257 Specimen collection (procedure) (no date) [facility] (missing) (missing) (missing) Result panel 1258 Specimen collection (procedure) (no date) [facility] (missing) (missing) (missing) Result panel 1259 Specimen collection (procedure) (no date) [facility] (missing) (missing) (missing) Result panel 1260 Specimen collection (procedure) (no date) [facility] (missing) (missing) (missing) Result panel 1261 Specimen collection (procedure) (no date) [facility] (missing) (missing) (missing) Result panel 1262 Specimen collection (procedure) (no date) [facility] (missing) (missing) (missing) Result panel 1263 Specimen collection (procedure) (no date) [facility] (missing) (missing) (missing) Result panel 1264 Specimen collection (procedure) (no date) [facility] (missing) (missing) (missing) Result panel 1265 Specimen collection (procedure) (no date) [facility] (missing) (missing) (missing) Result panel 1266 Specimen collection (procedure) (no date) [facility] (missing) (missing) (missing) Result panel 1267 Specimen collection (procedure) (no date) [facility] (missing) (missing) (missing) Result panel 1268 Specimen collection (procedure) (no date) [facility] (missing) (missing) (missing) Result panel 1269 Specimen collection (procedure) (no date) [facility] (missing) (missing) (missing) Result panel 1270 Specimen collection (procedure) (no date) [facility] (missing) (missing) (missing) Result panel 1271 Specimen collection (procedure) (no date) [facility] (missing) (missing) (missing) Result panel 1272 Specimen collection (procedure) (no date) [facility] (missing) (missing) (missing) Result panel 1273 Specimen collection (procedure) (no date) [facility] (missing) (missing) (missing) Result panel 1274 Specimen collection (procedure) (no date) [facility] (missing) (missing) (missing) Result panel 1275 Specimen collection (procedure) (no date) [facility] (missing) (missing) (missing) Result panel 1276 Specimen collection (procedure) (no date) [facility] (missing) (missing) (missing) Result panel 1277 Specimen collection (procedure) (no date) [facility] (missing) (missing) (missing) Result panel 1278 Specimen collection (procedure) (no date) [facility] (missing) (missing) (missing) Result panel 1279 Specimen collection (procedure) (no date) [facility] (missing) (missing) (missing) Result panel 1280 Specimen collection (procedure) (no date) [facility] (missing) (missing) (missing) Result panel 1281 Specimen collection (procedure) (no date) [facility] (missing) (missing) (missing) Result panel 1282 Specimen collection (procedure) (no date) [facility] (missing) (missing) (missing) Result panel 1283 Specimen collection (procedure) (no date) [facility] (missing) (missing) (missing) Result panel 1284 Specimen collection (procedure) (no date) [facility] (missing) (missing) (missing) Result panel 1285 Specimen collection (procedure) (no date) [facility] (missing) (missing) (missing) Result panel 1286 Specimen collection (procedure) (no date) [facility] (missing) (missing) (missing) Result panel 1287 Specimen collection (procedure) (no date) [facility] (missing) (missing) (missing) Result panel 1288 Specimen collection (procedure) (no date) [facility] (missing) (missing) (missing) Result panel 1289 Specimen collection (procedure) (no date) [facility] (missing) (missing) (missing) Result panel 1290 Specimen collection (procedure) (no date) [facility] (missing) (missing) (missing) Result panel 1291 Specimen collection (procedure) (no date) [facility] (missing) (missing) (missing) Result panel 1292 Specimen collection (procedure) (no date) [facility] (missing) (missing) (missing) Result panel 1293 Specimen collection (procedure) (no date) [facility] (missing) (missing) (missing) Result panel 1294 Specimen collection (procedure) (no date) [facility] (missing) (missing) (missing) Result panel 1295 Specimen collection (procedure) (no date) [facility] (missing) (missing) (missing) Result panel 1296 Specimen collection (procedure) (no date) [facility] (missing) (missing) (missing) Result panel 1297 Specimen collection (procedure) (no date) [facility] (missing) (missing) (missing) Result panel 1298 Serum prothrombin time 2024-11-04 23:02:[address] [facility] 1 3.4 SECONDS (missing) Result panel 1299 INR in Platelet poor plasma by Coagulation assay 2024-11-04 23:02:[address] [facility] 1.2 (missing) (miss ing) Result panel 1300 Troponin I.cardiac [Mass/volume] in Serum or Plasma 2024-11-04 23:02:[address] [facility] 0.024 ng/mL (miss ing) Result panel 1301 Natriuretic peptide.B prohormone N-Terminal [Mass/volume] in Serum or Plasma 2024-11-04 23:02:[address] [facility] 4270 pg/mL (miss ing) Result panel 1302 Serum prothrombin time 2024-11-04 23:02:[address] [facility] 1 3.4 SECONDS (missing) Result panel 1303 INR in Platelet poor plasma by Coagulation assay 2024-11-04 23:02:[address] [facility] 1.2 (missing) (miss ing) Result panel 1304 Troponin I.cardiac [Mass/volume] in Serum or Plasma 2024-11-04 23:02:[address] [facility] 0.024 ng/mL (miss ing) Result panel 1305 Natriuretic peptide.B prohormone N-Terminal [Mass/volume] in Serum or Plasma 2024-11-04 23:02:[address] [facility] 4270 pg/mL (miss ing) Result panel 1306 Serum prothrombin time 2024-11-04 23:02:[address] [facility] 1 3.4 SECONDS (missing) Result panel 1307 INR in Platelet poor plasma by Coagulation assay 2024-11-04 23:02:[address] [facility] 1.2 (missing) (miss ing) Result panel 1308 Troponin I.cardiac [Mass/volume] in Serum or Plasma 2024-11-04 23:02:[address] [facility] 0.024 ng/mL (miss ing) Result panel 1309 Natriuretic peptide.B prohormone N-Terminal [Mass/volume] in Serum or Plasma 2024-11-04 23:02:[address] [facility] 4270 pg/mL (miss [facility]) Result panel 1310 White blood cell count 2024-11-04 23:02:[address] [facility] 8 .3 X10^3/uL (missing) Result panel 1311 Red blood cell count 2024-11-04 23:02:[address] [facility] 4.9 3 X10^6/uL (missing) Result panel 1312 Hemoglobin 2024-11-04 23:02:[address] [facility] 16.5 g/d L (missing) Result panel 1313 Hematocrit 2024-11-04 23:02:[address] [facility] 48.7 % (missing) Result panel 1314 MCV (mean corpuscular volume ) determination 2024-11-04 23:02:[address] [facility] 98.8 fL (mis sing) Result panel 1315 Mean corpuscular hemoglobin (MCH) determination 2024-11-04 23:02:[address] [facility] 33.5 PG (missing) Result panel 1316 Mean corpuscular hemoglobin concentration (MCHC) determination 2024-11-04 23:02:[address] [facility] 33.9 % (mis sing) Result panel 1317 Red cell distribution width determination 2024-11-04 23:02:[address] [facility] 16.1 % (mis sing) Result panel 1318 Platelet count 2024-11-04 23:02:[address] [facility] 212 X10^3/uL (missing) Result panel 1319 Automated neutrophil % 2024-11-04 23:02:[address] [facility] 6 6.3 % (missing) Result panel 1320 Automated lymphocyte % 2024-11-04 23:02:[address] [facility] 2 2.5 % (missing) Result panel 1321 Automated monocyte % 2024-11-04 23:02:[address] [facility] 9.1 % (missing) Result panel 1322 Automated eosinophil % 2024-11-04 23:02:[address] [facility] 1 .1 % (missing) Result panel 1323 Automated basophil % 2024-11-04 23:02:[address] [facility] 1.0 % (missing) Result panel 1324 Absolute neutrophil count 2024-11-04 23:02:07 [facility] l 5500 /uL (missing) Result panel 1325 Absolute lymphocyte count 2024-11-04 [facility] Result panel 1326 Automated blood monocyte count 2024-11-04 23:02:07 [facility] spital 800 /uL (missing) Result panel 1327 Automated eosinophil count 2024-11-04 [facility] Result panel 1328 Automated basophil count 2024-11-04 23:02:[address] [facility] 100 /uL (missing) Result panel 1329 Serum prothrombin time 2024-11-04 23:02:[address] [facility] 1 3.4 SECONDS (missing) Result panel 1330 INR in Platelet poor plasma by Coagulation assay 2024-11-04 23:02:[address] [facility] 1.2 (missing) (miss ing) Result panel 1331 Troponin I.cardiac [Mass/volume] in Serum or Plasma 2024-11-04 23:02:[address] [facility] 0.024 ng/mL (miss ing) Result panel 1332 Natriuretic peptide.B prohormone N-Terminal [Mass/volume] in Serum or Plasma 2024-11-04 23:02:[address] [facility] 4270 pg/mL (miss ing) Result panel 1333 Sodium [Moles/volume] in Serum or Plasma 2024-11-04 23:02:[address] [facility] 141 mmol[facility]L [facility] Result panel 1334 Potassium [Moles/volume] in Serum or Plasma 2024-11-04 23:02:[address] [facility] 3.3 mmol/L [facility]) Result panel 1335 Chloride [Moles/volume] in Serum or Plasma 2024-11-04 23:02:[address] [facility] 99 mmol/L ([facility]) Result panel 1336 Carbon dioxide, total [Moles/volume] in Serum or Plasma 2024-11-04 23:02:[address] [facility] 31 mmol/L ([facility]) Result panel 1337 Urea nitrogen [Mass/volume] in Serum or Plasma 2024-11-04 23:02:[address] [facility] 18 mg/dL ([facility]) Result panel 1338 Creatinine [Mass/volume] in Serum or Plasma 2024-11-04 23:02:[address] [facility] 1.34 mg/dL ([facility]) Result panel 1339 Glomerular filtration rate (GFR) estimation 2024-11-04 23:02:[address] [facility] 46 mL/min ( missing) Result panel 1340 BUN/creatinine ratio 2024-11-04 23:02:[address] [facility] 13. 4 (missing) (missing) Result panel 1341 Glucose [Mass/volume] in Serum or Plasma 2024-11-04 23:02:[address] [facility] 121 mg/dL ([facility]) Result panel 1342 Calcium [Mass/volume] in Serum or Plasma 2024-11-04 23:02:[address] [facility] 11.6 mg/dL ([facility]) Result panel 1343 Bilirubin.total [Mass/volume ] in Serum or Plasma 2024-11-04 23:02:[address] [facility] 1.1 mg/dL (missing) Result panel 1344 Aspartate aminotransferase [Enzymatic activity/volume] in Serum or Plasma 2024-11-04 23:02:[address] [facility] 30 IU/L ([facility]) Result panel 1345 Alanine aminotransferase [Enzymatic activity/volume] in Serum or Plasma 2024-11-04 23:02:[address] [facility] 22 IU/L ([facility]) Result panel 1346 Alkaline phosphatase [Enzyma tic activity/volume] in Serum or Plasma 2024-11-04 23:02:[address] [facility] 57 U/L ([facility]) Result panel 1347 Protein total ser/plas 2024-11-04 23:02:[address] [facility] 6 .8 g/dL (missing) Result panel 1348 Albumin [Mass/volume] in Ser um or Plasma 2024-11-04 23:02:[address] [facility] 4.1 g/dL ([facility]) Result panel 1349 Globulin [Mass/volume] in Serum by calculation 2024-11-04 23:02:[address] [facility] 2.7 g/dL (missing) Result panel 1350 Albumin/Globulin [Mass Ratio] in Serum or Plasma 2024-11-04 23:02:[address] [facility] 1.5 ([facility]) (missing) Result panel 1351 Serum prothrombin time 2024-11-04 23:02:[address] [facility] 1 3.4 SECONDS (missing) Result panel 1352 INR in Platelet poor plasma by Coagulation assay 2024-11-04 23:02:[address] [facility] 1.2 (missing) (miss [facility]) Result panel 1353 Troponin I.cardiac [Mass/volume] in Serum or Plasma 2024-11-04 23:02:[address] [facility] 0.024 ng/mL (miss ing) Result panel 1354 Natriuretic peptide.B prohormone N-Terminal [Mass/volume] in Serum or Plasma 2024-11-04 23:02:[address] [facility] 4270 pg/mL (miss [facility]) Result panel 1355 Basophils Percent Auto 2024-11-04 23:[address] [place] [address] 1.0 % (missing) Eosinophils Percent Auto 2024-11-04 23:[address] [place] [address] 1. 1 % (missing) Basophils Absolute Auto 2024-11-04 23:[address] [place] [address] 100 /ul (missing) Eosinophils Absolute Auto 2024-11-04 23:[address] [place] [address] 1 00 /ul (missing) Red Cell Distribution Width 2024-11-04 23:[address] [place] [address] 16.1 % (missing) Hemoglobin 2024-11-04 23:[address] [place] [address] 16.5 g/dl (missing) Lymphocytes Absolute Auto 2024-11-04 23:[address] [place] [address] 1 900 /ul (missing) Platelet Count 2024-11-04 23:[address] [place] [address] 212 x1 0 3/ul (missing) Lymphocytes Percent Auto 2024-11-04 23:[address] [place] [address] 22 .5 % (missing) Mean Corpuscular Hemoglobin 2024-11-04 23:[address] [place] [address] 33.5 pg (missing) Mean Corpuscular HGB Conc 2024-11-04 23:[address] [place] [address] 3 3.9 % (missing) Red Blood Cell Count 2024-11-04 23:[address] [place] [address] 4.93 x10 6/ul (missing) Hematocrit 2024-11-04 23:[address] [place] [address] 48.7 % (missing) Neutrophils Absolute Auto 2024-11-04 23:[address] [place] [address] 5 500 /ul (missing) Neutrophils Percent Auto 2024-11-04 23:[address] [place] [address] 66 .3 % (missing) White Blood Cell Count 2024-11-04 23:[address] [facility] 8.3 x10 3/ul (missing) Monocytes Absolute Auto 2024-11-04 23:[address] [facility] 800 /ul (missing) Monocytes Percent Auto 2024-11-04 23:[address] [facility] 9.1 % (missing) Mean Corpuscular Volume 2024-11-04 23:[address] [facility] 98. 8 fl (missing) Result panel 1356 INR 2024-11-04 23:[address] [facility] 1.2 (missin g) (missing) Prothrombin Time 2024-11-04 23:[address] [facility] 13.4 seconds Comment If patient is on warfarin Result panel 1357 X-ray report 2024-11-04 23:[address] [facility] (missing) (mis sing) (missing) Result panel 1358 X-ray report 2024-11-04 23:[address] [facility] (missing) (mis sing) (missing) Result panel 1359 Lactate (Lactic Acid) 2024-11-04 23:[address] [facility] 2.9 mmol/l Yes/No query for Sepsis Lactate Rule Y Result panel 1360 Bilirubin Total 2024-11-04 23:[address] [facility] 1.1 mg/dl (missing) Creatinine 2024-11-04 23:[address] [facility] 1.34 mg/dl (missing) Albumin Globulin Ratio 2024-11-04 23:[address] [facility] 1.5 (missing) (missing) Calcium 2024-11-04 23:[address] [facility] 11.6 mg/dl (missing) Glucose 2024-11-04 23:[address] [facility] 121 mg/dl (missing) BUN Creatinine Ratio 2024-11-04 23:[address] [facility] 13.4 (missing) (missing) Sodium 2024-11-04 23:[address] [facility] 141 mmol/l Physician Instructions if pt has history of CHF Blood Urea Nitrogen 2024-11-04 23:[address] [facility] 18 mg/dl (missing) Globulin 2024-11-04 23:[address] [facility] 2.7 g/dl (missing) Alanine Aminotransferase 2024-11-04 23:[address] [facility] 22 iu/l (missing) Potassium 2024-11-04 23:[address] [facility] 3.3 mmol/l (missing) Aspartate Aminotransferase 2024-11-04 23:[address] [facility] 30 iu/l (missing) Carbon Dioxide 2024-11-04 23:[address] [facility] 31 mmol/l (missing) Albumin 2024-11-04 23:[address] [facility] 4.1 g/dl (missing) Estimated Glomerular Filt Rate 2024-11-04 23:[address] [facility] 46 ml/min Reported eGFR is based the CKD-EPI 2020 equation that does not use a race coefficient. An eGFR below 60 mL/min/1.73m2 suggests that some kidney damage has occurred, and indicative of chronic kidney disease if persisting greater than 3 months. An eGFR less than 15 is indicative of kidney failure. Alkaline Phosphatase 2024-11-04 23:[address] [facility] 57 u/l (missing) Total Protein 2024-11-04 23:[address] [facility] 6.8 g/dl (missing) Chloride 2024-11-04 23:[address] [facility] 99 mmol/l (missing) Result panel 1361 Arterial blood pH measurement 2024-11-04 23:33:[address] [facility] 7.40 (missing) ([facility]) Result panel 1362 Arterial blood gas (pH, pCO2 , pO2, CO2, HCO3, calculated O2 saturation) 2024-11-04 23:33:[address] [facility] 49.5 mmHg ([facility]) Result panel 1363 Arterial blood partial press ure of oxygen 2024-11-04 23:33:[address] [facility] 65 mmHg ([facility]) Result panel 1364 Arterial blood oxygen satura tion measurement 2024-11-04 23:33:[address] [facility] 92 % ([facility]) Result panel 1365 Arterial blood pH measurement 2024-11-04 23:33:[address] [facility] 7.40 (missing) ([facility]) Result panel 1366 Arterial blood gas (pH, pCO2 , pO2, CO2, HCO3, calculated O2 saturation) 2024-11-04 23:33:[address] [facility] 49.5 mmHg ([facility]) Result panel 1367 Arterial blood partial press ure of oxygen 2024-11-04 23:33:[address] [facility] 65 mmHg ([facility]) Result panel 1368 Arterial blood oxygen satura tion measurement 2024-11-04 23:33:[address] [facility] 92 % ([facility]) Result panel 1369 Arterial blood pH measurement 2024-11-04 23:33:[address] [facility] 7.40 (missing) ([facility]) Result panel 1370 Arterial blood gas (pH, pCO2 , pO2, CO2, HCO3, calculated O2 saturation) 2024-11-04 23:33:[address] [facility] 49.5 mmHg ([facility]) Result panel 1371 Arterial blood partial press ure of oxygen 2024-11-04 23:33:[address] [facility] 65 mmHg ([facility]) Result panel 1372 Arterial blood oxygen satura tion measurement 2024-11-04 23:33:[address] [facility] 92 % ([facility]) Result panel 1373 Arterial blood pH measurement 2024-11-04 23:33:[address] [facility] 7.40 (missing) ([facility]) Result panel 1374 Arterial blood gas (pH, pCO2 , pO2, CO2, HCO3, calculated O2 saturation) 2024-11-04 23:33:[address] [facility] 49.5 mmHg ([facility]) Result panel 1375 Arterial blood partial press ure of oxygen 2024-11-04 23:33:[address] [facility] 65 mmHg ([facility]) Result panel 1376 Arterial blood oxygen satura tion measurement 2024-11-04 23:33:[address] [facility] 92 % ([facility]) Result panel 1377 Arterial blood pH measurement 2024-11-04 23:33:[address] [facility] 7.40 (missing) ([facility]) Result panel 1378 Arterial blood gas (pH, pCO2 , pO2, CO2, HCO3, calculated O2 saturation) 2024-11-04 23:33:[address] [facility] 49.5 mmHg ([facility]) Result panel 1379 Arterial blood partial press ure of oxygen 2024-11-04 23:33:[address] [facility] 65 mmHg ([facility]) Result panel 1380 Arterial blood oxygen satura tion measurement 2024-11-04 23:33:[address] [facility] 92 % ([facility]) Result panel 1381 Troponin I 2024-11-04 23:[address] [facility] 0.024 ng/ml Physician Instructions if pt has history of CHF Ortho Troponin-I Recommended Upper Reference Range & Cutoff The 99th Percentile URL: 0.034 ng/mL AMI Diagnostic Cutoff: 0.120 ng/mL Bilirubin Total 2024-11-04 23:[address] [facility] 1.1 mg/dl (missing) Creatinine 2024-11-04 23:[address] [facility] 1.34 mg/dl (missing) Albumin Globulin Ratio 2024-11-[address] [facility] 1.5 (missing) (missing) Calcium 2024-11-04 23:[address] [facility] 11.6 mg/dl (missing) Glucose 2024-11-04 23:[address] [place] [address] 121 mg/dl (missing) BUN Creatinine Ratio 2024-11-04 23:[address] [place] [address] 13.4 (missing) (missing) Sodium 2024-11-04 23:[address] [place] [address] 141 mmol/l Physician Instructions if pt has history of CHF Blood Urea Nitrogen 2024-11-04 23:[address] [place] [address] 18 mg/dl (missing) Globulin 2024-11-04 23:[address] [place] [address] 2.7 g/dl (missing) Alanine Aminotransferase 2024-11-04 23:[address] [place] [address] 22 iu/l (missing) Potassium 2024-11-04 23:[address] [place] [address] 3.3 mmol/l (missing) Aspartate Aminotransferase 2024-11-04 23:[address] [place] [address] 30 iu/l (missing) Carbon Dioxide 2024-11-04 23:[address] [place] [address] 31 mmol/l (missing) Albumin 2024-11-04 23:[address] [place] [address] 4.1 g/dl (missing) NT-proBNP (BNP-Adult 18+) 2024-11-04 23:[address] [place] [address] 4270 pg/ml Physician Instructions if pt has history of CHF The following cut-points have been suggested for the use of proBNP for the diagnostic evaluation of heart failure (HF) in patients with acute dyspnea: Modality Age in Years Optimal Cut-Off -------- Heart Failure Unlikely: Exclusion Age Independent 300 pg/mL Heart Failure Likely: Diagnostic <50 450 pg/mL 50-75 900 pg/mL >75 1800 pg/mL The 300 pg/mL age-independent rule-out cutoff can be used to identify ED patients in whom HF (heart failuire) is unlikely and who need further investigations for non-cardiac causes of dyspnea. The natriuretic peptides values increase with age, therefore, applying age-dependent rule-in cutoffs (450, 900, and 1800 pg/mL) increases the specificity and positive predictive value for diagnosing patients in whom HF is likely. As mild natriuretic peptides elevations can be caused by non-HF conditions, VITROS NT-proBNP II test results between the exclusion and the diagnosis cutoffs should be considered in the context of the clinical presentation and physical examination in order to correctly identify or exclude HF. Estimated Glomerular Filt Rate 2024-11-04 23:[address] [facility] 46 ml/min Reported eGFR is based the CKD-EPI 2020 equation that does not use a race coefficient. An eGFR below 60 mL/min/1.73m2 suggests that some kidney damage has occurred, and indicative of chronic kidney disease if persisting greater than 3 months. An eGFR less than 15 is indicative of kidney failure. Alkaline Phosphatase 2024-11-04 23:[address] [facility] 57 u/l (missing) Total Protein 2024-11-04 23:[address] [facility] 6.8 g/dl (missing) Chloride 2024-11-04 23:[address] [facility] 99 mmol/l (missing) Result panel 1382 TCO2 ABG 2024-11-04 23:[address] [facility] 29 mmol/l (missing) HCO3 ABG 2024-11-04 23:[address] [facility] 31 mmol/l (missing) Fractionated Inspired Oxygen 2024-11-04 23:[address] [facility] 32.0 % % (miss ing) Base Excess ABG 2024-11-04 23:[address] [facility] 4.4 m mol/l (missing) PCO2 ABG 2024-11-04 23:[address] [facility] 49.5 mmhg (missing) PO2 ABG 2024-11-04 23:[address] [facility] 65 mmhg (missing) pH ABG 2024-11-04 23:[address] [facility] 7.40 (missin g) (missing) Oxygen Saturation ABG 2024-11-[address] [facility] 92 % (missing ) Delivery System 2024-11-04 23:[address] [facility] Cannula ( missing) (missing) Gutierrez Test for ABG Passed? 2024-11-[address] [facility] Positive (missing) (missing ) Blood Gas Collection Site 2024-11-04 23:[address] [facility] Right Radial (missing) (missing ) Result panel 1383 Lactate [Mass/volume] in Serum or Plasma 2024-11-05 01:00:[address] [facility] 2.4 mmol/L (m issing) Result panel 1384 Lactate [Mass/volume] in Serum or Plasma 2024-11-05 01:00:[address] [facility] 2.4 mmol/L (m issing) Result panel 1385 Lactate [Mass/volume] in Serum or Plasma 2024-11-05 01:00:[address] [facility] 2.4 mmol/L (m issing) Result panel 1386 Lactate [Mass/volume] in Serum or Plasma 2024-11-05 01:00:[address] [facility] 2.4 mmol/L ([facility] Result panel 1387 Lactate [Mass/volume] in Serum or Plasma 2024-11-05 01:00:[address] [facility] 2.4 mmol/L ([facility]) Result panel 1388 Lactate 2HR (Lactic Acid Rflx) 2024-11-05 01:36 [facility] 2.4 mmol/l (missing) Result panel 1389 Bilirubin.total [Mass/volume ] in Serum or Plasma 2024-11-05 06:16:[address] [facility] 1.2 mg/dL (missing) Result panel 1390 Aspartate aminotransferase [Enzymatic activity/volume] in Serum or Plasma 2024-11-05 06:16:[address] [facility] 34 IU/L ([facility]) Result panel 1391 Alanine aminotransferase [Enzymatic activity/volume] in Serum or Plasma 2024-11-05 06:16:[address] [facility] 26 IU/L ([facility]) Result panel 1392 Alkaline phosphatase [Enzyma tic activity/volume] in Serum or Plasma 2024-11-05 06:16:[address] [facility] 63 U/L ([facility] ing) Result panel 1393 Protein total ser/plas 2024-11-05 06:16:[address] [facility] 7 .4 g/dL (missing) Result panel 1394 Albumin [Mass/volume] in Ser um or Plasma 2024-11-05 06:16:[address] [facility] 4.3 g/dL (miss ing) Result panel 1395 Globulin [Mass/volume] in Serum by calculation 2024-11-05 06:16:[address] [facility] 3.1 g/dL (missing) Result panel 1396 Albumin/Globulin [Mass Ratio] in Serum or Plasma 2024-11-05 06:16:[address] [facility] 1.4 (miss ing) (missing) Result panel 1397 Bilirubin.total [Mass/volume ] in Serum or Plasma 2024-11-05 06:16:[address] [facility] 1.2 mg/dL (missing) Result panel 1398 Aspartate aminotransferase [Enzymatic activity/volume] in Serum or Plasma 2024-11-05 06:16:[address] [facility] 34 IU/L ([facility]) Result panel 1399 Alanine aminotransferase [Enzymatic activity/volume] in Serum or Plasma 2024-11-05 06:16:[address] [facility] 26 IU/L ([facility]) Result panel 1400 Alkaline phosphatase [Enzyma tic activity/volume] in Serum or Plasma 2024-11-05 06:16:[address] [facility] 63 U/L ([facility]) Result panel 1401 Protein total ser/plas 2024-11-05 06:16:[address] [facility] 7 .4 g/dL (missing) Result panel 1402 Albumin [Mass/volume] in Ser um or Plasma 2024-11-05 06:16:[address] [facility] 4.3 g/dL ([facility]) Result panel 1403 Globulin [Mass/volume] in Serum by calculation 2024-11-05 06:16:[address] [facility] 3.1 g/dL (missing) Result panel 1404 Albumin/Globulin [Mass Ratio] in Serum or Plasma 2024-11-05 06:16:[address] [facility] 1.4 ([facility]) (missing) Result panel 1405 Bilirubin.total [Mass/volume ] in Serum or Plasma 2024-11-05 06:16:[address] [facility] 1.2 mg/dL (missing) Result panel 1406 Aspartate aminotransferase [Enzymatic activity/volume] in Serum or Plasma 2024-11-05 06:16:[address] [facility] 34 IU/L ([facility]) Result panel 1407 Alanine aminotransferase [Enzymatic activity/volume] in Serum or Plasma 2024-11-05 06:16:[address] [facility] 26 IU/L ([facility]) Result panel 1408 Alkaline phosphatase [Enzyma tic activity/volume] in Serum or Plasma 2024-11-05 06:16:[address] [facility] 63 U/L ([facility]) Result panel 1409 Protein total ser/plas 2024-11-05 06:16:[address] [facility] 7 .4 g/dL (missing) Result panel 1410 Albumin [Mass/volume] in Ser um or Plasma 2024-11-05 06:16:[address] [facility] 4.3 g/dL ([facility]) Result panel 1411 Globulin [Mass/volume] in Serum by calculation 2024-11-05 06:16:[address] [facility] 3.1 g/dL (missing) Result panel 1412 Albumin/Globulin [Mass Ratio] in Serum or Plasma 2024-11-05 06:16:[address] [facility] 1.4 ([facility] ing) (missing) Result panel 1413 Bilirubin.total [Mass/volume ] in Serum or Plasma 2024-11-05 06:16:[address] [facility] 1.2 mg/dL (missing) Result panel 1414 Aspartate aminotransferase [Enzymatic activity/volume] in Serum or Plasma 2024-11-05 06:16:[address] [facility] 34 IU/L ([facility]) Result panel 1415 Alanine aminotransferase [Enzymatic activity/volume] in Serum or Plasma 2024-11-05 06:16:[address] [facility] 26 IU/L ([facility]) Result panel 1416 Alkaline phosphatase [Enzyma tic activity/volume] in Serum or Plasma 2024-11-05 06:16:[address] [facility] 63 U/L ([facility]) Result panel 1417 Protein total ser/plas 2024-11-05 06:16:[address] [facility] 7 .4 g/dL (missing) Result panel 1418 Albumin [Mass/volume] in Ser um or Plasma 2024-11-05 06:16:[address] [facility] 4.3 g/dL ([facility]) Result panel 1419 Globulin [Mass/volume] in Serum by calculation 2024-11-05 06:16:[address] [facility] 3.1 g/dL (missing) Result panel 1420 Albumin/Globulin [Mass Ratio] in Serum or Plasma 2024-11-05 06:16:[address] [facility] 1.4 ([facility]) (missing) Result panel 1421 Basophils Absolute Auto 2024-11-05 06:[address] [facility] 0 /ul (missing ) Eosinophils Absolute Auto 2024-11-05 06:[address] [facility] 0 /ul (missing ) Eosinophils Percent Auto 2024-11-05 06:[address] [facility] 0.0 % (missing ) Basophils Percent Auto 2024-11-[address] [facility] 0.4 % (missing ) Monocytes Percent Auto 2024-11-05 06:[address] [facility] 1.4 % (missing ) Monocytes Absolute Auto 2024-11-05 06:[address] [facility] 100 /ul (missing ) Red Cell Distribution Width 2024-11-05 06:[address] [facility] 16.2 % (missing ) Hemoglobin 2024-11-05 06:[address] [facility] 17.0 g/dl (missing) Platelet Count 2024-11-05 06:[address] [facility] 208 x1 0 3/ul (missing) Mean Corpuscular Hemoglobin 2024-11-05 06:[address] [facility] 33.2 pg (missing ) Mean Corpuscular HGB Conc 2024-11-[address] [facility] 33.6 % (missing ) Red Blood Cell Count 2024-11-05 06:[address] [facility] 5.11 x10 6/ul (missing) Hematocrit 2024-11-[address] [facility] 50.5 % (missing) Lymphocytes Absolute Auto 2024-11-[address] [facility] 600 /ul (missing ) Neutrophils Absolute Auto 2024-11-[address] [facility] 6200 /ul (missing ) White Blood Cell Count 2024-11-[address] [facility] 7.0 x10 3/ul (missing ) Lymphocytes Percent Auto 2024-11-[address] [facility] 8.7 % (missing ) Neutrophils Percent Auto 2024-11-[address] [facility] 89.5 % Delta: 6 6.3 on 11/04/24-2301 Mean Corpuscular Volume 2024-11-[address] [facility] 98.7 fl (missing ) Result panel 1422 Estimated Glomerular Filt Rate 2024-11-05 06:[address] [facility] > 60 ml/min Reported eGFR is based the CKD-EPI 2020 equation that does not use a race coefficient. An eGFR below 60 mL/min/1.73m2 suggests that some kidney damage has occurred, and indicative of chronic kidney disease if persisting greater than 3 months. An eGFR less than 15 is indicative of kidney failure. Creatinine 2024-11-05 06:[address] [facility] 1.03 mg/dl (missing) Bilirubin Total 2024-11-05 06:[address] [facility] 1.2 mg/dl (missing) Albumin Globulin Ratio 2024-11-[address] [facility] 1.4 (missing) (missing) Calcium 2024-11-05 06:[address] [facility] 11.6 mg/dl (missing) Sodium 2024-11-05 06:[address] [facility] 139 mmol/l (missing) Glucose 2024-11-05 06:[address] [facility] 154 mg/dl (missing) BUN Creatinine Ratio 2024-11-[address] [facility] 18.4 (missing) (missing) Blood Urea Nitrogen 2024-11-05 06:[address] [facility] 19 mg/dl (missing) Alanine Aminotransferase 2024-11-05 06:[address] [facility] 26 iu/l (missing) Globulin 2024-11-05 06:[address] [facility] 3.1 g/dl (missing) Potassium 2024-11-05 06:[address] [facility] 3.8 mmol/l (missing) Carbon Dioxide 2024-11-05 06:[address] [facility] 30 mmol/l (missing) Aspartate Aminotransferase 2024-11-05 06:[address] [facility] 34 iu/l (missing) Albumin 2024-11-05 06:[address] [facility] 4.3 g/dl (missing) Alkaline Phosphatase 2024-11-05 06:[address] [facility] 63 u/l (missing) Total Protein 2024-11-05 06:[address] [facility] 7.4 g/dl (missing) Chloride 2024-11-05 06:[address] [facility] 98 mmol/l (missing) Result panel 1423 Emergency department note 2024-11-05 15:[address] [facility] (missing) (missing) (missing ) Result panel 1424 White blood cell count 2024-11-06 04:26:[address] [facility] 1 1.9 X10^3/uL (missing) Result panel 1425 Red blood cell count 2024-11-06 04:26:[address] [facility] 4.9 5 X10^6/uL (missing) Result panel 1426 Hemoglobin 2024-11-06 04:26:[address] [facility] 16.4 g/d L (missing) Result panel 1427 Hematocrit 2024-11-06 04:26:[address] [facility] 49.0 % (missing) Result panel 1428 MCV (mean corpuscular volume ) determination 2024-11-06 04:26:[address] [facility] 99.0 fL (mis sing) Result panel 1429 Mean corpuscular hemoglobin (MCH) determination 2024-11-06 04:26:[address] [facility] 33.2 PG (missing) Result panel 1430 Mean corpuscular hemoglobin concentration (MCHC) determination 2024-11-06 04:26:[address] [facility] 33.5 % (mis sing) Result panel 1431 Red cell distribution width determination 2024-11-06 04:26:[address] [facility] 16.2 % (mis sing) Result panel 1432 Platelet count 2024-11-06 04:26:[address] [facility] 216 X10^3/uL (missing) Result panel 1433 Automated neutrophil % 2024-11-06 04:26:[address] [facility] 9 2.1 % (missing) Result panel 1434 Automated lymphocyte % 2024-11-06 04:26:[address] [facility] 4 .7 % (missing) Result panel 1435 Automated monocyte % 2024-11-06 04:26:[address] [facility] 3.0 % (missing) Result panel 1436 Automated eosinophil % 2024-11-06 04:26:[address] [facility] 0 .0 % (missing) Result panel 1437 Automated basophil % 2024-11-06 04:26:[address] [facility] 0.2 % (missing) Result panel 1438 Absolute neutrophil count 2024-11-06 04:26:07 [facility] l [address]370 /uL (missing) Result panel 1439 Absolute lymphocyte count 2024-11-06 [facility] Result panel 1440 Automated blood monocyte count 2024-11-06 04:26:07 [facility] spital 400 /uL (missing) Result panel 1441 Automated eosinophil count 2024-11-06 04:[facility] Result panel 1442 Automated basophil count 2024-11-06 04:26:07 [facility] 0 /uL (missing) Result panel 1443 Sodium [Moles/volume] in Serum or Plasma 2024-11-06 04:26:[address] [facility] 140 mmol/L ([facility]) Result panel 1444 Potassium [Moles/volume] in Serum or Plasma 2024-11-06 04:26:[address] [facility] 3.7 mmol/L ([facility]) Result panel 1445 Chloride [Moles/volume] in Serum or Plasma 2024-11-06 04:26:[address] [facility] 97 mmol/L ([facility]) Result panel 1446 Carbon dioxide, total [Moles/volume] in Serum or Plasma 2024-11-06 04:26:[address] [facility] 32 mmol/L ([facility]) Result panel 1447 Urea nitrogen [Mass/volume] in Serum or Plasma 2024-11-06 04:26:[address] [facility] Result panel 1448 Creatinine [Mass/volume] in Serum or Plasma 2024-11-06 04:26:[address] [facility] 1.11 mg/dL ([facility]) Result panel 1449 Glomerular filtration rate (GFR) estimation 2024-11-06 04:26:[address] [facility] 58 mL/min ( missing) Result panel 1450 BUN/creatinine ratio 2024-11-06 04:26:[address] [facility] 33. 3 (missing) (missing) Result panel 1451 Glucose [Mass/volume] in Serum or Plasma 2024-11-06 04:26:[address] [facility] 144 mg/dL ([facility]) Result panel 1452 Calcium [Mass/volume] in Serum or Plasma 2024-11-06 04:26:[address] [facility] 10.8 mg/dL ([facility]) Result panel 1453 White blood cell count 2024-11-06 04:26:[address] [facility] 1 1.9 X10^3/uL (missing) Result panel 1454 Red blood cell count 2024-11-06 04:26:[address] [facility] 4.9 5 X10^6/uL (missing) Result panel 1455 Hemoglobin 2024-11-06 04:26:[address] [facility] 16.4 g/d L (missing) Result panel 1456 Hematocrit 2024-11-06 04:26:[address] [facility] 49.0 % (missing) Result panel 1457 MCV (mean corpuscular volume ) determination 2024-11-06 04:26:[address] [facility] 99.0 fL (mis sing) Result panel 1458 Mean corpuscular hemoglobin (MCH) determination 2024-11-06 04:26:[address] [facility] 33.2 PG (missing) Result panel 1459 Mean corpuscular hemoglobin concentration (MCHC) determination 2024-11-06 04:26:[address] [facility] 33.5 % (mis sing) Result panel 1460 Red cell distribution width determination 2024-11-06 04:26:[address] [facility] 16.2 % (mis sing) Result panel 1461 Platelet count 2024-11-06 04:26:[address] [facility] 216 X10^3/uL (missing) Result panel 1462 Automated neutrophil % 2024-11-06 04:26:[address] [facility] 9 2.1 % (missing) Result panel 1463 Automated lymphocyte % 2024-11-06 04:26:[address] [facility] 4 .7 % (missing) Result panel 1464 Automated monocyte % 2024-11-06 04:26:[address] [facility] 3.0 % (missing) Result panel 1465 Automated eosinophil % 2024-11-06 04:26:[address] [facility] 0 .0 % (missing) Result panel 1466 Automated basophil % 2024-11-06 04:26:[address] [facility] 0.2 % (missing) Result panel 1467 Absolute neutrophil count 2024-11-06 04:26:07 [facility] l 66105 /uL (missing) Result panel 1468 Absolute lymphocyte count 2024-11-06 04:26[facility] ([facility] Result panel 1469 Automated blood monocyte count 2024-11-06 04:26:07 [facility] spital 400 /uL (missing) Result panel 1470 Automated eosinophil count 2024-11-06 04:26:07 [facility] 0 /uL (missing) Result panel 1471 Automated basophil count 2024-11-06 04:26:07 [facility] 0 /uL (missing) Result panel 1472 Sodium [Moles/volume] in Serum or Plasma 2024-11-06 04:26:[address] [facility] 140 mmol/L ([facility]) Result panel 1473 Potassium [Moles/volume] in Serum or Plasma 2024-11-06 04:26:[address] [facility] 3.7 mmol/L [facility] Result panel 1474 Chloride [Moles/volume] in Serum or Plasma 2024-11-06 04:26:[address] [facility] 97 mmol/L ([facility]) Result panel 1475 Carbon dioxide, total [Moles/volume] in Serum or Plasma 2024-11-06 04:26:[address] [facility] 32 mmol/L ([facility]) Result panel 1476 Urea nitrogen [Mass/volume] in Serum or Plasma 2024-11-06 04:26:[address] [facility] 37 mg/dL [facility] Result panel 1477 Creatinine [Mass/volume] in Serum or Plasma 2024-11-06 04:26:[address] [facility] 1.11 mg/dL [facility] Result panel 1478 Glomerular filtration rate (GFR) estimation 2024-11-06 04:26:[address] [facility] 58 mL/min ( missing) Result panel 1479 BUN/creatinine ratio 2024-11-06 04:26:[address] [facility] 33. 3 (missing) (missing) Result panel 1480 Glucose [Mass/volume] in Serum or Plasma 2024-11-06 04:26:[address] [facility] 144 mg/dL (m issing) Result panel 1481 Calcium [Mass/volume] in Serum or Plasma 2024-11-06 04:26:[address] [facility] 10.8 mg/dL ([facility]) Result panel 1482 White blood cell count 2024-11-06 04:26:[address] [facility] 1 1.9 X10^3/uL (missing) Result panel 1483 Red blood cell count 2024-11-06 04:26:[address] [facility] 4.9 5 X10^6/uL (missing) Result panel 1484 Hemoglobin 2024-11-06 04:26:[address] [facility] 16.4 g/d L (missing) Result panel 1485 Hematocrit 2024-11-06 04:26:[address] [facility] 49.0 % (missing) Result panel 1486 MCV (mean corpuscular volume ) determination 2024-11-06 04:26:[address] [facility] 99.0 fL (mis sing) Result panel 1487 Mean corpuscular hemoglobin (MCH) determination 2024-11-06 04:26:[address] [facility] 33.2 PG (missing) Result panel 1488 Mean corpuscular hemoglobin concentration (MCHC) determination 2024-11-06 04:26:[address] [facility] 33.5 % (mis sing) Result panel 1489 Red cell distribution width determination 2024-11-06 04:26:[address] [facility] 16.2 % (mis sing) Result panel 1490 Platelet count 2024-11-06 04:26:[address] [facility] 216 X10^3/uL (missing) Result panel 1491 Automated neutrophil % 2024-11-06 04:26:[address] [facility] 9 2.1 % (missing) Result panel 1492 Automated lymphocyte % 2024-11-06 04:26:[address] [facility] 4 .7 % (missing) Result panel 1493 Automated monocyte % 2024-11-06 04:26:[address] [facility] 3.0 % (missing) Result panel 1494 Automated eosinophil % 2024-11-06 04:26:[address] [facility] 0 .0 % (missing) Result panel 1495 Automated basophil % 2024-11-06 04:26:[address] [facility] 0.2 % (missing) Result panel 1496 Absolute neutrophil count 2024-11-06 04:26:07 [facility] [address] [facility] ([facility] Result panel 1497 Absolute lymphocyte count 2024-11-06 04:26:07 [facility] 600 /uL (missing) Result panel 1498 Automated blood monocyte count 2024-11-06 04:26:07 [facility] spital 400 /uL (missing) Result panel 1499 Automated eosinophil count 2024-11-06 04:26[facility]07 [facility] ([facility] Result panel 1500 Automated basophil count 2024-11-06 04:26:[address] [facility] 0 /uL (missing) Result panel 1501 Sodium [Moles/volume] in Serum or Plasma 2024-11-06 04:26:[address] [facility] 140 mmol/L ([facility]) Result panel 1502 Potassium [Moles/volume] in Serum or Plasma 2024-11-06 04:26:[address] [facility] 3.7 mmol/L ([facility]) Result panel 1503 Chloride [Moles/volume] in Serum or Plasma 2024-11-06 04:26:[address] [facility] 97 mmol/L ([facility]) Result panel 1504 Carbon dioxide, total [Moles/volume] in Serum or Plasma 2024-11-06 04:26:[address] [facility] 32 mmol/L ([facility]) Result panel 1505 Urea nitrogen [Mass/volume] in Serum or Plasma 2024-11-06 04:26:[address] [facility] 37 mg/dL ([facility]) Result panel 1506 Creatinine [Mass/volume] in Serum or Plasma 2024-11-06 04:26:[address] [facility] 1.11 mg/dL ([facility]) Result panel 1507 Glomerular filtration rate (GFR) estimation 2024-11-06 04:26:[address] [facility] 58 mL/min ( missing) Result panel 1508 BUN/creatinine ratio 2024-11-06 04:26:[address] [facility] 33. 3 (missing) (missing) Result panel 1509 Glucose [Mass/volume] in Serum or Plasma 2024-11-06 04:26:[address] [facility] 144 mg/dL ([facility]) Result panel 1510 Calcium [Mass/volume] in Serum or Plasma 2024-11-06 04:26:[address] [facility] 10.8 mg/dL ([facility]) Result panel 1511 White blood cell count 2024-11-06 04:26:[address] [facility] 1 1.9 X10^3/uL (missing) Result panel 1512 Red blood cell count 2024-11-06 04:26:[address] [facility] 4.9 5 X10^6/uL (missing) Result panel 1513 Hemoglobin 2024-11-06 04:26:[address] [facility] 16.4 g/d L (missing) Result panel 1514 Hematocrit 2024-11-06 04:26:[address] [facility] 49.0 % (missing) Result panel 1515 MCV (mean corpuscular volume ) determination 2024-11-06 04:26:[address] [facility] 99.0 fL (mis sing) Result panel 1516 Mean corpuscular hemoglobin (MCH) determination 2024-11-06 04:26:[address] [facility] 33.2 PG (missing) Result panel 1517 Mean corpuscular hemoglobin concentration (MCHC) determination 2024-11-06 04:26:[address] [facility] 33.5 % (mis sing) Result panel 1518 Red cell distribution width determination 2024-11-06 04:26:[address] [facility] 16.2 % (mis sing) Result panel 1519 Platelet count 2024-11-06 04:26:[address] [facility] 216 X10^3/uL (missing) Result panel 1520 Automated neutrophil % 2024-11-06 04:26:[address] [facility] 9 2.1 % (missing) Result panel 1521 Automated lymphocyte % 2024-11-06 04:26:[address] [facility] 4 .7 % (missing) Result panel 1522 Automated monocyte % 2024-11-06 04:26:[address] [facility] 3.0 % (missing) Result panel 1523 Automated eosinophil % 2024-11-06 04:26:[address] [facility] 0 .0 % (missing) Result panel 1524 Automated basophil % 2024-11-06 04:26:[address] [facility] 0.2 % (missing) Result panel 1525 Absolute neutrophil count 2024-11-06 04:26:07 [facility] l 45184 /uL (missing) Result panel 1526 Absolute lymphocyte count 2024-11-06 04:26[facility]07 [facility] /[facility] ([facility] Result panel 1527 Automated blood monocyte count 2024-11-06 04:26:07 [facility] spital 400 /uL (missing) Result panel 1528 Automated eosinophil count 2024-11-06 04:26:07 [facility] 0 /uL (missing) Result panel 1529 Automated basophil count 2024-11-06 04:26:[address] [facility] 0 /uL (missing) Result panel 1530 Sodium [Moles/volume] in Serum or Plasma 2024-11-06 04:26:[address] [facility] 140 mmol/L ( issing) Result panel 1531 Potassium [Moles/volume] in Serum or Plasma 2024-11-06 04:26:[address] [facility] 3.7 mmol/L [facility] Result panel 1532 Chloride [Moles/volume] in Serum or Plasma 2024-11-06 04:26:[address] [facility] 97 mmol/L ([facility] Result panel 1533 Carbon dioxide, total [Moles/volume] in Serum or Plasma 2024-11-06 04:26:[address] [facility] 32 mmol/L ([facility]) Result panel 1534 Urea nitrogen [Mass/volume] in Serum or Plasma 2024-11-06 04:26:[address] [facility] 37 mg/dL ([facility]) Result panel 1535 Creatinine [Mass/volume] in Serum or Plasma 2024-11-06 04:26:[address] [facility] 1.11 mg/dL ([facility] Result panel 1536 Glomerular filtration rate (GFR) estimation 2024-11-06 04:26:[address] [facility] 58 mL/min ( missing) Result panel 1537 BUN/creatinine ratio 2024-11-06 04:26:[address] [facility] 33. 3 (missing) (missing) Result panel 1538 Glucose [Mass/volume] in Serum or Plasma 2024-11-06 04:26:[address] [facility] 144 mg/dL ([facility]) Result panel 1539 Calcium [Mass/volume] in Serum or Plasma 2024-11-06 04:26:[address] [facility] 10.8 mg/dL [facility] Result panel 1540 Basophils Absolute Auto 2024-11-06 05:[address] [facility] 0 /ul (missing ) Eosinophils Absolute Auto 2024-11-06 05:[address] [facility] 0 /ul (missing ) Eosinophils Percent Auto 2024-11-06 05:[address] [facility] 0.0 % (missing ) Basophils Percent Auto 2024-11-06 05:[address] [facility] 0.2 % (missing ) Neutrophils Absolute Auto 2024-11-06 05:[address] [facility] 46810 /ul (missing ) White Blood Cell Count 2024-11-06 05:[address] [facility] 11.9 x10 3/ul Delta: 7 .0 on 11/05/24 Red Cell Distribution Width 2024-11-06 05:[address] [facility] 16.2 % (m issing) Hemoglobin 2024-11-06 05:[address] [place] [address] 16.4 g/dl (missing) Platelet Count 2024-11-06 05:[address] [facility] 216 x1 0 3/ul (missing) Monocytes Percent Auto 2024-11-[address] [facility] 3.0 % (missing ) Mean Corpuscular Hemoglobin 2024-11-06 05:[address] [place] [address] 33.2 pg (missing ) Mean Corpuscular HGB Conc 2024-11-06 05:[address] [facility] 33.5 % (missing ) Lymphocytes Percent Auto 2024-11-06 05:[address] [facility] 4.7 % (missing ) Red Blood Cell Count 2024-11-06 05:[address] [place] [address] 4.95 x10 6/ul (missing) Monocytes Absolute Auto 2024-11-06 05:[address] [facility] 400 /ul (missing ) Hematocrit 2024-11-06 05:[address] [place] [address] 49.0 % (missing) Lymphocytes Absolute Auto 2024-11-06 05:[address] [place] [address] 600 /ul (missing ) Neutrophils Percent Auto 2024-11-06 05:[address] [facility] 92.1 % (missing ) Mean Corpuscular Volume 2024-11-06 05:[address] [place] [address] 99.0 fl (missing ) Result panel 1541 Creatinine 2024-11-06 05:[address] [facility] 1.11 mg/dl (missing) Calcium 2024-11-06 05:[address] [facility] 10.8 mg/dl (missing) Sodium 2024-11-06 05:[address] [facility] 140 mmol/l (missing) Glucose 2024-11-06 05:[address] [facility] 144 mg/dl (missing) Potassium 2024-11-06 05:[address] [facility] 3.7 mmol/l (missing) Carbon Dioxide 2024-11-06 05:[address] [facility] 32 mm ol/l (missing) BUN Creatinine Ratio 2024-11-[address] [facility] 33.3 (missing) (missing ) Blood Urea Nitrogen 2024-11-06 05:[address] [facility] 37 mg/dl (missing) Estimated Glomerular Filt Rate 2024-11-06 05:[address] [facility] 58 ml/min Reported eGFR is based the CKD-EPI 2020 equation that does not use a race coefficient. An eGFR below 60 mL/min/1.73m2 suggests that some kidney damage has occurred, and indicative of chronic kidney disease if persisting greater than 3 months. An eGFR less than 15 is indicative of kidney failure. Chloride 2024-11-06 05:[address] [facility] 97 mmol/l (missing) Result panel 1542 White blood cell count 2025-01-07 00:12:[address] [facility] 6 .5 X10^3/uL (missing) Result panel 1543 Red blood cell count 2025-01-07 00:12:[address] [facility] 4.7 9 X10^6/uL (missing) Result panel 1544 Hemoglobin 2025-01-07 00:12:[address] [facility] 15.8 g/d L (missing) Result panel 1545 Hematocrit 2025-01-07 00:12:[address] [facility] 47.6 % (missing) Result panel 1546 MCV (mean corpuscular volume ) determination 2025-01-07 00:12:[address] [facility] 99.3 fL (mis sing) Result panel 1547 Mean corpuscular hemoglobin (MCH) determination 2025-01-07 00:12:[address] [facility] 33.0 PG (missing) Result panel 1548 Mean corpuscular hemoglobin concentration (MCHC) determination 2025-01-07 00:12:[address] [facility] 33.2 % (mis sing) Result panel 1549 Red cell distribution width determination 2025-01-07 00:12:[address] [facility] 15.4 % (mis sing) Result panel 1550 Platelet count 2025-01-07 00:12:[address] [facility] 219 X10^3/uL (missing) Result panel 1551 Automated neutrophil % 2025-01-07 00:12:[address] [facility] 6 0.6 % (missing) Result panel 1552 Automated lymphocyte % 2025-01-07 00:12:[address] [facility] 2 8.2 % (missing) Result panel 1553 Automated monocyte % 2025-01-07 00:12:[address] [facility] 8.9 % (missing) Result panel 1554 Automated eosinophil % 2025-01-07 00:12:[address] [facility] 1 .5 % (missing) Result panel 1555 Automated basophil % 2025-01-07 00:12:[address] [facility] 0.8 % (missing) Result panel 1556 Absolute neutrophil count 2025-01-07 00:12:07 [facility] l 3900 /uL (missing) Result panel 1557 Absolute lymphocyte count 2025-01-07 00:12:07 [facility] l 1800 /uL (missing) Result panel 1558 Automated blood monocyte count 2025-01-07 00:12:07 [facility] spital 600 /uL (missing) Result panel 1559 [facility] Result panel 1560 Automated basophil count 2025-01-07 00:12:07 [facility] 100 /uL (missing) Result panel 1561 Serum prothrombin time 2025-01-07 00:12:[address] [facility] 1 3.5 SECONDS (missing) Result panel 1562 INR in Platelet poor plasma by Coagulation assay 2025-01-07 00:12:[address] [facility] 1.2 (missing) (miss ing) Result panel 1563 Troponin I.cardiac [Mass/volume] in Serum or Plasma 2025-01-07 00:12:[address] [facility] < 0.012 ng/mL (missing) (missing) Result panel 1564 Natriuretic peptide.B prohormone N-Terminal [Mass/volume] in Serum or Plasma 2025-01-07 00:12:[address] [facility] 5020 pg/mL (miss ing) Result panel 1565 Sodium [Moles/volume] in Serum or Plasma 2025-01-07 00:12:[address] [facility] 141 mmol/L [facility]) Result panel 1566 Potassium [Moles/volume] in Serum or Plasma 2025-01-07 00:12:[address] [facility] 4.1 mmol/L ([facility]) Result panel 1567 Chloride [Moles/volume] in Serum or Plasma 2025-01-07 00:12:[address] [facility] 103 mmol/L ([facility]) Result panel 1568 Carbon dioxide, total [Moles/volume] in Serum or Plasma 2025-01-07 00:12:[address] [facility] 29 mmol/L (miss ing) Result panel 1569 Urea nitrogen [Mass/volume] in Serum or Plasma 2025-01-07 00:12:[address] [facility] 12 [facility] Result panel 1570 Creatinine [Mass/volume] in Serum or Plasma 2025-01-07 00:12:[address] [facility] 0.91 mg/dL ([facility]) Result panel 1571 Glomerular filtration rate (GFR) estimation 2025-01-07 00:12:[address] [facility] > 60 mL/min (missing) (missing) Result panel 1572 BUN/creatinine ratio 2025-01-07 00:12:[address] [facility] 13. 2 (missing) (missing) Result panel 1573 Glucose [Mass/volume] in Serum or Plasma 2025-01-07 00:12:[address] [facility] 144 mg/dL ([facility]) Result panel 1574 Lactate [Mass/volume] in Serum or Plasma 2025-01-07 00:12:[address] [facility] 1.9 mmol/L ([facility]) Result panel 1575 Calcium [Mass/volume] in Serum or Plasma 2025-01-07 00:12:[address] [facility] 9.7 mg/dL ([facility]) Result panel 1576 Bilirubin.total [Mass/volume ] in Serum or Plasma 2025-01-07 00:12:[address] [facility] 0.9 mg/dL (missing) Result panel 1577 Aspartate aminotransferase [Enzymatic activity/volume] in Serum or Plasma 2025-01-07 00:12:[address] [facility] 25 IU/L [facility]) Result panel 1578 Alanine aminotransferase [Enzymatic activity/volume] in Serum or Plasma 2025-01-07 00:12:[address] [facility] 15 IU/L ([facility]) Result panel 1579 Alkaline phosphatase [Enzyma tic activity/volume] in Serum or Plasma 2025-01-07 00:12:[address] [facility] 75 U/L (miss ing) Result panel 1580 Protein total ser/plas 2025-01-07 00:12:[address] [facility] 6 .9 g/dL (missing) Result panel 1581 Albumin [Mass/volume] in Ser um or Plasma 2025-01-07 00:12:[address] [facility] 3.8 g/dL (miss ing) Result panel 1582 Globulin [Mass/volume] in Serum by calculation 2025-01-07 00:12:[address] [facility] 3.1 g/dL (missing) Result panel 1583 Albumin/Globulin [Mass Ratio] in Serum or Plasma 2025-01-07 00:12:[address] [facility] 1.2 (miss ing) (missing) Result panel 1584 Basophils Percent Auto 2025-01-07 00:[address] [facility] 0.8 % (missing) Eosinophils Percent Auto 2025-01-07 00:[address] [facility] 1. 5 % (missing) Basophils Absolute Auto 2025-01-07 00:[address] [facility] 100 /ul (missing) Eosinophils Absolute Auto 2025-01-07 00:[address] [facility] 1 00 /ul (missing) Red Cell Distribution Width 2025-01-[address] [facility] 15.4 % (missing) Hemoglobin 2025-01-07 00:[address] [place] [address] 15.8 g/dl (missing) Lymphocytes Absolute Auto 2025-01-[address] [facility] 1 800 /ul (missing) Platelet Count 2025-01-07 00:[address] [place] [address] 219 x1 0 3/ul (missing) Lymphocytes Percent Auto 2025-01-[address] [facility] 28 .2 % (missing) Mean Corpuscular Hemoglobin 2025-01-07 00:[address] [place] [address] 33.0 pg (missing) Mean Corpuscular HGB Conc 2025-01-[address] [facility] 3 3.2 % (missing) Neutrophils Absolute Auto 2025-01-07 00:[address] [facility] 3 900 /ul (missing) Red Blood Cell Count 2025-01-[address] [facility] 4.79 x10 6/ul (missing) Hematocrit 2025-01-[address] [facility] 47.6 % (missing) White Blood Cell Count 2025-01-07 00:[address] [place] [address] 6.5 x10 3/ul (missing) Neutrophils Percent Auto 2025-01-07 00:[address] [facility] 60 .6 % (missing) Monocytes Absolute Auto 2025-01-[address] [facility] 600 /ul (missing) Monocytes Percent Auto 2025-01-07 00:[address] [place] [address] 8.9 % (missing) Mean Corpuscular Volume 2025-01-[address] [facility] 99. 3 fl (missing) Result panel 1585 INR 2025-01-07 00:[address] [facility] 1.2 (missin g) (missing) Prothrombin Time 2025-01-07 00:[address] [facility] 13.5 seconds Comment If patient is on warfarin Result panel 1586 Estimated Glomerular Filt Rate 2025-01-07 00:[address] [facility] > 60 ml/min Reported eGFR is based the CKD-EPI 2021 equation that does not use a race coefficient. An eGFR below 60 mL/min/1.73m2 suggests that some kidney damage has occurred, and indicative of chronic kidney disease if persisting greater than 3 months. An eGFR less than 15 is indicative of kidney failure. Bilirubin Total 2025-01-07 00:[address] [facility] 0.9 mg/dl (missing) Creatinine 2025-01-07 00:[address] [facility] 0.91 mg/dl (missing) Albumin Globulin Ratio 2025-01-[address] [facility] 1.2 (missing) (missing) Lactate (Lactic Acid) 2025-01-[address] [facility] 1.9 mmol/l Yes/No query for Sepsis Lactate Rule Y Chloride 2025-01-[address] [facility] 103 mmol/l (missing) Blood Urea Nitrogen 2025-01-07 00:[address] [facility] 12 mg/dl (missing) BUN Creatinine Ratio 2025-01-[address] [facility] 13.2 (missing) (missing) Sodium 2025-01-07 00:[address] [facility] 141 mmol/l Physician Instructions if pt has history of CHF Glucose 2025-01-07 00:[address] [facility] 144 mg/dl (missing) Alanine Aminotransferase 2025-01-07 00:[address] [facility] 15 iu/l (missing) Aspartate Aminotransferase 2025-01-[address] [facility] 25 iu/l (missing) Carbon Dioxide 2025-01-[address] [facility] 29 mmol/l (missing) Globulin 2025-01-07 00:[address] [facility] 3.1 g/dl (missing) Albumin 2025-01-07 00:[address] [facility] 3.8 g/dl (missing) Potassium 2025-01-07 00:[address] [facility] 4.1 mmol/l (missing) Total Protein 2025-01-07 00:[address] [facility] 6.9 g/dl (missing) Alkaline Phosphatase 2025-01-07 00:[address] [facility] 75 u/l (missing) Calcium 2025-01-[address] [facility] 9.7 mg/dl (missing) Result panel 1587 Estimated Glomerular Filt Rate 2025-01-07 00:[address] [facility] > 60 ml/min Reported eGFR is based the CKD-EPI 1 equation that does not use a race coefficient. An eGFR below 60 mL/min/1.73m2 suggests that some kidney damage has occurred, and indicative of chronic kidney disease if persisting greater than 3 months. An eGFR less than 15 is indicative of kidney failure. Troponin I 2025-01-07 00:[address] [place] [address] < 0.012 ng/ml Physician Instructions if pt has history of CHF Ortho Troponin-I Recommended Upper Reference Range & Cutoff The 99th Percentile URL: 0.034 ng/mL AMI Diagnostic Cutoff: 0.120 ng/mL Bilirubin Total 2025-01-07 00:[address] [facility] 0.9 mg/dl (missing) Creatinine 2025-01-07 00:[address] [place] [address] 0.91 mg/dl (missing) Albumin Globulin Ratio 2025-01-07 00:[address] [place] [address] 1.2 (missing) (missing) Chloride 2025-01-07 00:[address] [place] [address] 103 mmol/l (missing) Blood Urea Nitrogen 2025-01-07 00:[address] [place] [address] 12 mg/dl (missing) BUN Creatinine Ratio 2025-01-07 00:[address] [place] [address] 13.2 (missing) (missing) Sodium 2025-01-07 00:[address] [place] [address] 141 mmol/l Physician Instructions if pt has history of CHF Glucose 2025-01-07 00:[address] [place] [address] 144 mg/dl (missing) Alanine Aminotransferase 2025-01-07 00:[address] [place] [address] 15 iu/l (missing) Aspartate Aminotransferase 2025-01-07 00:[address] [place] [address] 25 iu/l (missing) Carbon Dioxide 2025-01-07 00:[address] [place] [address] 29 mmol/l (missing) Globulin 2025-01-07 00:[address] [place] [address] 3.1 g/dl (missing) Albumin 2025-01-07 00:[address] [place] [address] 3.8 g/dl (missing) Potassium 2025-01-07 00:[address] [place] [address] 4.1 mmol/l (missing) NT-proBNP (BNP-Adult 18+) 2025-01-07 00:[address] [place] [address] 5020 pg/ml Physician Instructions if pt has history of CHF The following cut-points have been suggested for the use of proBNP for the diagnostic evaluation of heart failure (HF) in patients with acute dyspnea: Modality Age in Years Optimal Cut-Off -------- Heart Failure Unlikely: Exclusion Age Independent 300 pg/mL Heart Failure Likely: Diagnostic <50 450 pg/mL 50-75 900 pg/mL >75 1800 pg/mL The 300 pg/mL age-independent rule-out cutoff can be used to identify ED patients in whom HF (heart failuire) is unlikely and who need further investigations for non-cardiac causes of dyspnea. The natriuretic peptides values increase with age, therefore, applying age-dependent rule-in cutoffs (450, 900, and 1800 pg/mL) increases the specificity and positive predictive value for diagnosing patients in whom HF is likely. As mild natriuretic peptides elevations can be caused by non-HF conditions, VITROS NT-proBNP II test results between the exclusion and the diagnosis cutoffs should be considered in the context of the clinical presentation and physical examination in order to correctly identify or exclude HF. Total Protein 2025-01-07 00:[address] [facility] 6.9 g/dl (missing) Alkaline Phosphatase 2025-01-07 00:[address] [facility] 75 u/l (missing) Calcium 2025-01-07 00:[address] [facility] 9.7 mg/dl (missing) Result panel 1588 Microscopic analysis of urine for red blood cells (RBC) 2025-01-07 00:49:[address] [facility] 0-1/hpf (missing) (missing) Result panel 1589 Microscopic analysis of urine for white blood cells (WBC) 2025-01-07 00:49:[address] [facility] 30-100/hpf (missing) (missing) Result panel 1590 Urine squamous epithelial cell detection 2025-01-07 00:49:[address] [facility] 0-1 /hpf (missing) (miss ing) Result panel 1591 Squamous Epithelial Cell Urine 2025-01-07 01:[address] [facility] 0-1 /HPF (missing) (missing ) RBC Urine 2025-01-[address] [facility] 0-1/HPF (missin g) (missing) Urine Volume 2025-01-07 01:[address] [facility] 10mL (spun) (m issing) Urine Source: Urine, Random Culture if Indicated? Y WBC Urine 2025-01-07 01:[address] [facility] 30-100/HPF (sree ng) (missing) Bacteria Urine 2025-01-07 01:[address] [facility] Many (>30) ( missing) (missing) Result panel 1592 Gepp Count 2025-01-07 10:[address] [facility] >100,000 cfu/ml (missing) ORGANISM 2025-01-07 10:[address] [facility] GNBGram negative bacilli (missing) (missing) Action to follow 2025-01-07 10:[address] [facility] Identification and Sensitivity to Follow (missing) (missing) Result panel 1593 Urine Culture 2025-01-08 07:[address] [facility] (missing) (missing) (missing) Gepp Count 2025-01-08 07:[address] [facility] >100,000 cfu/ml (missing) Ciprofloxacin 2025-01-08 07:[address] [facility] <=0.06 (missing) (missing) Ertapenem 2025-01-08 07:[address] [facility] <=0.12 (missing) (missing) Levofloxacin 2025-01-08 07:[address] [facility] <=0.12 (missing) (missing) Ceftriaxone 2025-01-08 07:[address] [facility] <=0.25 (missing) (missing) Meropenem 2025-01-08 07:[address] [facility] <=0.25 (missing) (missing) Gentamicin 2025-01-08 07:[address] [facility] <=1 (missing) (missing) Tetracycline 2025-01-08 07:[address] [facility] <=1 (missing) (missing) Nitrofurantoin 2025-01-08 07:[address] [facility] <=16 (missing) (missing) Trimethoprim/Sulfa methoxazole 2025-01-08 07:[address] [facility] <=20 (missing) (missing) Piperacillin/Tazob actam 2025-01-08 07:[address] [facility] <=4 (missing) (missing) Ampicillin 2025-01-08 07:[address] [facility] 16 (missing) (missing) Cefazolin 2025-01-08 07:[address] [facility] 2 (missing) (missing) Amoxicillin/Clavul anate 2025-01-08 07:[address] [facility] 4 (missing) (missing) ORGANISM 2025-01-08 07:[address] [facility] ESCCOLEscherichia coli (missing) (missing) Urine Culture 2025-01-08 07:[address] [facility] Isolates that test susceptible to tetracycline are (missing) (missing) Action to follow 2025-01-08 07:[address] [facility] No Further Workup (missing) (missing) Urine Culture 2025-01-08 07:[address] [facility] considered susceptible to doxycycline and minocycline. (missing) (missing) Social History date description facility 2024-11-04 00:00 Smokes tobacco daily (finding) [facility] 2024-11-05 00:00 Smokes tobacco daily (finding) [facility] 2024-11-16 00:00 Current some day smoker [facility] 2025-01-07 00:00 Smokes tobacco daily (finding) [facility] Vital Signs date measurement value units 2024-11-04 00:00 BMI 44.9 kg/m2 2024-11-04 00:00 height_metric 170.18 cm 2024-11-04 00:00 height_standard 67 in 2024-11-04 00:00 temperature_metric 37 C 2024-11-04 00:00 temperature_standard 98.6 F 2024-11-04 00:00 weight_metric 130 kg 2024-11-04 00:00 weight_standard 286.6 lb 2024-11-05 00:00 BP_diastolic 73 mmHg 2024-11-05 00:00 BP_systolic 118 mmHg 2024-11-05 00:00 heart_rate 100 /min 2024-11-05 00:00 height_metric 170.18 cm 2024-11-05 00:00 height_standard 67 in 2024-11-05 00:00 o2_saturation 99 % 2024-11-05 00:00 respiration_rate 25 /min 2024-11-06 00:00 BP_diastolic 65 mmHg 2024-11-06 00:00 BP_systolic 123 mmHg 2024-11-06 00:00 heart_rate 103 /min 2024-11-06 00:00 o2_saturation 94 % 2024-11-06 00:00 respiration_rate 16 /min 2024-11-06 00:00 temperature_metric 36.33 C 2024-11-06 00:00 temperature_standard 97.4 F 2024-11-06 00:00 weight_metric 124.5 kg 2024-11-06 00:00 weight_metric 124.50 kg 2024-11-06 00:00 weight_standard 274.48 lb 2024-11-16 00:00 BMI 42.9 kg/m2 2024-11-16 00:00 BP_diastolic 60 mmHg 2024-11-16 00:00 BP_systolic 100 mmHg 2024-11-16 00:00 heart_rate 90 /min 2024-11-16 00:00 height_metric 170.18 cm 2024-11-16 00:00 height_standard 67 in 2024-11-16 00:00 weight_metric 124.28 kg 2024-11-16 00:00 weight_standard 273.99 lb 2024-12-21 00:00 BP_diastolic 90 mmHg 2024-12-21 00:00 BP_systolic 116 mmHg 2024-12-21 00:00 heart_rate 87 /min 2024-12-21 00:00 o2_saturation 92 % 2025-01-07 00:00 BMI 47.0 kg/m2 2025-01-07 00:00 BP_diastolic 71 mmHg 2025-01-07 00:00 BP_systolic 121 mmHg 2025-01-07 00:00 heart_rate 114 /min 2025-01-07 00:00 height_metric 170.18 cm 2025-01-07 00:00 o2_saturation 93 % 2025-01-07 00:00 respiration_rate 43 /min 2025-01-07 00:00 temperature_standard 97.5 F 2025-01-07 00:00 weight_metric 136.07 kg
--- NOTE | 2025-01-20 23:14 | ED Physician Documentation ---
PD HPI DYSPNEA Stated complaint Stated Complaint: SOA Chief complaint Chief Complaint: Resp History obtained from History obtained from: Patient Additional information Additional information: Cindy Pabon is a 69-year-old female with a history of COPD and congestive heart failure who is on 3 L nasal cannula at home. She has developed increasing shortness of breath and feels bloated and tells me that she has stopped taking her Lasix because she is having so much trouble getting up to go to the bathroom and urinating all over everything before she can get to the bedside commode. Ayla Coma Scale Assess Eye opening: Spontaneous Verbal response: Oriented Motor response: Obeys Commands Total score: 15 Review of Systems Patient had some vomiting today and she has had dyspnea she has a usual cough but this is no different she has not had a fever she has not had diarrhea or constipation she feels bloated through the abdomen and she has not been taking her Lasix and has decreased urine output. Meds/Allgy Home Medications Ambulatory Orders Medication Instructions Recorded Confirmed albuterol sulfate 90 mcg/actuation 2 puff inhalation Q 4H PRN 02/08/22 04/05/22 breath activated powder Shortness Of Air/Wheezing inhaler,sensor (Proair Digihaler) amlodipine 10 mg tablet (Norvasc) 10 mg PO DAILY 02/0804/05/22 azithromycin 250 mg tablet 250 mg PO DAILY #4 tabs 04/05/22 chlorthalidone 25 mg tablet 12.5 mg PO DAILY 02/08/22 04/05/22 digoxin 250 mcg (0.25 mg) tablet 250 mcg PO DAILY 01/1204/05/22 (Lanoxin) furosemide 20 mg tablet 20 mg PO DAILY #5 tabs 02/0804/05/22 lisinopril 5 mg tablet 5 mg PO DAILY #30 tabs 02/0804/05/22 magnesium oxide 500 mg capsule 500 mg PO DAILY 2 04/05/22 multivitamin with folic acid 400 1 ea PO DAILY 2 04/05/22 mcg tablet (Thera) spironolactone 25 mg tablet 12.5 mg PO DAILY 02/08/22 04/05/22 (Aldactone) tiotropium bromide 18 mcg capsule 18 mcg inhalation DA RAY 10/30/22 12/25/22 with inhalation device (Spiriva with HandiHaler) metoprolol succinate 100 mg 100 mg PO BID 01/21/25 tablet,extended release 24 hr potassium chloride 10 mEq 10 meq PO DAILY 01/21/25 capsule,extended release tolterodine 4 mg capsule,extended 4 mg PO DAILY release 24 hr Allergies Allergies Allergy/AdvReac Type Severity Reaction Status Date / Time Penicillins Allergy Unknown Verified 04/05/22 00:59 OTC nasal sprays AdvReac Respiratory Uncoded 04/05/22 00:59 PFSH Active Problems All Active Problems (Updated 01/21/25 @ 04:06 by Trent Guzman MD) Atrial fibrillation with rapid ventricular response (Chronic) Rhinovirus infection (Acute) Atrial fibrillation (Acute) History of GI bleed (Acute) Anemia (Acute) COPD exacerbation (Acute) Acute respiratory failure with hypoxia (Acute) CHF (congestive heart failure) (Acute) Epistaxis (Acute) Social History Social History (Updated 01/21/25 @ 06:07 by Mari Cristina MD) Smoking Status: Unknown if ever smoked Number of Years Smoked: 42 How many cigarettes a day do you smoke? (20 cigarettes=1 Pk): 20 Do you dip or chew tobacco?: No Do you vape?: No Patient requests smoking cessation consult: No Initiate information on smoking cessation: No Level: Assisted Home Mobility Equipment: Wheelchair Do you feel safe in your home environment?: Yes History of physical, verbal, emotional, or financial abuse?: No Frequency: Occasional Substance Use: denies use POLST Patient has POLST: No Exam Exam Vital Signs: Vital Signs x48h Temp Pulse Resp BP Pulse Ox O2 Flow Rate 01/21/25 05:00 137 H 20 156/89 H 93 3 01/21/25 04:00 36.2 C L 125 H 19 158/106 H 96 4 01/21/25 03:30 127 H 30 H 135/98 H 98 3 01/21/25 02:44 107 H 22 165/124 H 98 01/21/25 02:21 118 H 20 115/78 100 01/21/25 01:00 156 H 23 167/98 H 90 L 01/21/25 00:25 116 H 23 118/92 H 90 L 3 01/21/25 00:11 122 H 01/20/25 23:50 143 H 24 3 01/20/25 23:32 140 H 29 H 133/90 H 94 3 59-year-old female with nasal cannula oxygen in place at 3 L as oxygen saturation of 96%. She does not appear to be struggling for breath she is quite tachycardic at 140 he is afebrile blood pressure is elevated at 153/104. Constitutional normal general appearance and no apparent distress The patient has morbid obesity HENMT normocephalic and head/scalp atraumatic Eyes PERRL and EOMs intact bilaterally Neck/C-Spine visual inspection normal Respiratory breath sounds equal bilaterally, normal respiratory effort and auscultation abnormal (diminished breath sound) and (bronchial breath sounds) Cardiovascular heart rate abnormal (tachycardic) (140), regular rhythm noted and no murmur Gastrointestinal abdomen normal to inspection, abdomen soft to palpation and nontender to palpation Morbid obesity Genitourinary no CVA tenderness Back/Pelvis spine normal to inspection Extremities There is only trace edema present. Neurology reconciling clerk II-XII intact Psychiatry mental status grossly normal Skin skin color normal Results Vitals Vitals: Vital Signs - 24 hr 01/20/25 22:43 01/20/25 22:54 01/20/25 23:32 Temperature 36.7 C Temperature Source Tympanic Pulse Rate 140 H 140 H Respiratory Rate 27 H 29 H Blood Pressure 153/104 H 133/90 H O2 Saturation 96 94 Oxygen Delivery Method Nasal Cannula O2 Source Nasal cannula Nasal cannula Oxygen Flow Rate 3 If not protocol: Oxygen Flow, liters/minute 3 3 Pain Intensity 0 01/20/25 23:50 01/21/25 00:11 01/21/25 00:25 Temperature Temperature Source Pulse Rate 143 H 122 H 116 H Respiratory Rate 24 23 Blood Pressure 118/92 H O2 Saturation 90 L Oxygen Delivery Method O2 Source Nasal cannula Nasal cannula Oxygen Flow Rate If not protocol: Oxygen Flow, liters/minute 3 3 Pain Intensity 01/21/25 00:40 01/21/25 01:00 01/21/25 02:18 Temperature Temperature Source Pulse Rate 156 H Respiratory Rate 23 Blood Pressure 167/98 H O2 Saturation 90 L Oxygen Delivery Method Nasal Cannula O2 Source Room air Oxygen Flow Rate 3 If not protocol: Oxygen Flow, liters/minute Pain Intensity 7 01/21/25 02:21 01/21/25 02:25 01/21/25 02:44 Temperature Temperature Source Pulse Rate 118 H 107 H Respiratory Rate 20 22 Blood Pressure 115/78 165/124 H O2 Saturation 100 98 Oxygen Delivery Method Nasal Cannula O2 Source Room air Room air Oxygen Flow Rate 3 If not protocol: Oxygen Flow, liters/minute Pain Intensity 01/21/25 03:30 01/21/25 04:00 01/21/25 05:00 Temperature 36.2 C L Temperature Source Temporal Artery Scan Pulse Rate 127 H 125 H 137 H Respiratory Rate 30 H 19 20 Blood Pressure 135/98 H 158/106 H 156/89 H O2 Saturation 98 96 93 Oxygen Delivery Method O2 Source Nasal cannula Nasal cannula Nasal cannula Oxygen Flow Rate If not protocol: Oxygen Flow, liters/minute 3 4 3 Pain Intensity 0 Oxygen O2 Source Nasal cannula Oxygen Flow Rate 3 EKG (time done) 2317: EKG releavant findings:: EKG personally interpreted by author of this note. Relevant findings are: Rate: Rate (enter#) (126) Rhythm: Atrial fibrillation [place]: RAD Ischemia: Other (borderline T abnormality inferior leads ) Compare to prior EKG: Changed from prior EKG (SPT 02-07-22 the rate is slower today) Computer interpretation: Agree with computer Labs Labs: Laboratory Tests 01/20/25 01/21/25 01/21/25 23:22 00:01 02:12 WBC 9.7 RBC 4.91 Hgb 15.6 Hct 51.7 H MCV 105.3 H MCH 31.8 H MCHC 30.2 L RDW 14.8 Plt Count 202 MPV 10.0 Neut # (Auto) 7.4 H Lymph # (Auto) 1.4 L [place] # (Auto) 0.8 Eos # (Auto) 0.1 Baso # (Auto) 0.0 Absolute Nucleated RBC 0.00 Nucleated RBC % 0.0 Sodium 145 Potassium 3.9 Chloride 102 Carbon Dioxide 37 H Anion Gap 6.0 BUN 11 Creatinine 1.1 Estimated GFR (MDRD) 51 L Glucose 122 H Calcium 9.3 Magnesium 1.7 1.7 Total Bilirubin 0.8 AST 15 ALT 10 Alkaline Phosphatase 68 Troponin I High Sens 20.4 H* 20.8 H* B-Natriuretic Peptide 845 H Total Protein 6.2 L Albumin 3.4 Globulin 2.8 Albumin/Globulin Ratio 1.2 Lipase 75 Urine Color YELLOW Urine Clarity CLEAR Urine pH 7.0 Ur Specific [place] 1.015 Urine Protein TRACE Urine Glucose (UA) NEGATIVE Urine Ketones NEGATIVE Urine Occult Blood NEGATIVE Urine Nitrite NEGATIVE Urine Bilirubin NEGATIVE Urine Urobilinogen 0.2 (NORMAL) Ur Leukocyte Esterase NEGATIVE Ur Microscopic Review NOT INDICATED Urine Culture Comments NOT INDICATED Procedures IVC sono (time) 2311: Bedside IVC sono: IVC measures (cm) (2.72), High CVP and Fluid overload PD Medical Decision Making ED course Complexity details: reviewed old records, reviewed results, re-evaluated patien t, considered differential and d/w patient Reviewed Lab Results: We reviewed a complete blood count showing a normal white blood cell count of 9.7 hemoglobin is normal at 15.6 hematocrit is elevated at 51.7 platelets are normal at 202. These laboratory values are more similar to what the patient has had from 2013 and different from what she has had with an admission in 2021. At that time her hematocrit was low. Chemistries done today show normal electrolytes with exception of carbon dioxide elevated at 37 liver functions are normal high-sensitivity troponin is elevated at 20.4 and a repeat is 20.8. U/A unremarkable. A BNP is elevated at 845 similar with what the patient has had previously. I interpret these laboratory studies to indicate the patient has congestive heart failure with an elevated BNP her troponin is stable at just above normal and she has carbon oxide retention. I suspect her Trop is elevated at a baseline secondary to her respiratory failure. ED course: Cindy Pabon is a 59-year-old female with a history of COPD on oxygen who has a history of afib with RVR and a history of CHF. She has stopped taking her lasix beause she was tired of getting up to go to the bathroom and urinating on the floor unable to get to the bedside cammode. She has developed worsening dyspnea and she is found to be in afib with RVR. I interrogated the IVC with POCUS and found she had a 2.7 cm vessel consistent with acute failure. She responds to duoneb and lasix given IV and we administered diltiazem 20mg with good effect but this did not last and we used 25mg wilth better effect and this did not last. She is started on a diltiazem drip. She is not yet stable and will need admission to the intensive care unit for stabilization. Discharge Plan Discharge Patient Disposition: 66 [facility] DC/Xfer Condition: Serious Clinical Impression: Acute respiratory failure with hypoxia, COPD exacerbation, Atrial fibrillation with rapid ventricular response CHF (congestive heart failure) Qualifiers: Heart failure type: unspecified Heart failure chronicity: chronic Qualified Code(s): I50.9 - Heart failure, unspecified Interventions: ED Admission Assessment Last Done: 01/21/25 06:07 Vitals documented within 30 minutes of discharge?: Yes
[2025-01-20] MEDS: FUROSEMIDE 40 MG/4 ML VIAL IVP STA (23:20)
[2025-01-20 23:27] LABS: HCT - HEMATOCRIT 51.7 % (37.0-47.0); HGB - HEMOGLOBIN 15.6 g/dL (12.0-16.0); MEAN PLATELET VOLUME 10.0 fL (7.9-10.8); NRBC ABSOLUTE COUNT (AUTO) 0.00 x10^3/uL; NUCLEATED RED BLOOD CELLS AUTO 0.0 /100WBC; PLT - PLATELET COUNT 202 10^3/uL (130-450); RED CELL DISTRIBUTION WIDTH 14.8 % (12.0-15.0)
--- NOTE | 2025-01-20 23:37 | XRAY Report ---
PROCEDURE: XR Chest 1V INDICATIONS: chest pain TECHNIQUE: One view of the chest was acquired. COMPARISON: 02/08/2022 FINDINGS: Surgical changes and devices: None. Lungs and pleura: No pleural effusions or pneumothorax. Mild pulmonary vascular congestion and suggestion of mild pulmonary edema. No definite focal infiltrate. Mediastinum: Mediastinal contours appear normal. Heart size is enlarged. Bones and chest wall: No suspicious bony lesions. Overlying soft tissues appear unremarkable. IMPRESSION: Finding is concerning for CHF. No definite focal infiltrate. No pleural effusion or pneumothorax. Reviewed by: Augustus Flores MD on 01/20/2025 11:34 PM PDT Approved by: Augustus Flores MD on 01/20/2025 11:34 PM PDT Station ID: [id number]
[2025-01-20 23:42] LABS: ALT ALANINE AMINOTRANSFERASE 10.0 IU/L (10-60); AST ASPARTATE AMINOTRANSFERASE 15.0 IU/L (10-42); BUN - BLOOD UREA NITROGEN 11.0 mg/dL (6-20); CARBON DIOXIDE - CO2 37.0 mmol/L (21-32); CREATININE 1.1 mg/dL (0.6-1.3); GFR - MDRD 51.0 (>89)
[2025-01-20] MEDS: IPRATROPIUM/ALBUTEROL 3 ML NEB INH STA (23:50)
[2025-01-20 23:53] LABS: TROPONIN I HIGH SENSITIVITY 20.4 ng/L (2.3-14.8)
[2025-01-20] MEDS: diltiaZEM INJ 5 MG/ML VIAL IVP STA (23:59)
[2025-01-21 00:13] LABS: GLUCOSE, URINE (UA) NEGATIVE (NEGATIVE); KETONES,URINE (UA) NEGATIVE (NEGATIVE); OCCULT BLOOD,URINE NEGATIVE (NEGATIVE)
[2025-01-21] MEDS: diltiaZEM INJ 5 MG/ML VIAL IVP STA (02:13)
[2025-01-21] MEDS: ACETAMINOPHEN 325 MG TABLET PO STA (02:18)
[2025-01-21] MEDS ORDERED: diltiaZEM INJ 5 MG/ML VIAL ONE (04:57)
[2025-01-21] MEDS ORDERED: IPRATROPIUM/ALBUTEROL 3 ML NEB INH PRN (05:34)
--- OUTSIDE RECORDS SUMMARY | 2025-01-21 05:56 | EXTERNAL MEDICAL SUMMARY RPT | Continuity of Care Document ---
Author Organization [place] Address [address] [address] Phone Care Team Providers Care Field Administrative Assistant Name Role Phone Unavailable Unavailable Unavailable Chung Mcdonald Unavailable Unavailable Allergies and Intolerances date description facility reaction severity 2024-11-16 11:36:47 [facility] (no reactio n) (no severity) 2024-12-21 09:07:27 [facility] (no reactio n) (no severity) 2025-01-07 00:02:48 [facility] (no reactio n) (no severity) 2024-11-16 11:36:47 [facility] (no reactio n) (no severity) 2024-12-21 09:07:27 [facility] (no reactio n) (no severity) 2025-01-07 00:02:48 [facility] (no reactio n) (no severity) 2024-11-16 11:36:47 [facility] (no reactio n) (no severity) 2024-12-21 09:07:27 [facility] (no reactio n) (no severity) 2025-01-07 00:02:48 [facility] (no reactio n) (no severity) 2024-11-16 11:36:47 [facility] (no reactio n) Severe 2024-12-21 09:07:27 [facility] (no reactio n) Severe 2025-01-07 00:02:48 [facility] (no reactio n) Severe Medications date description facility 2024-11-06 00:00 Fluticasone Propion-Salmeterol Merged [facility] 2024-12-21 00:00 Fluticasone Propion-Salmeterol Merged With [facility] 2024-11-06 00:00 Tiotropium [facility] 2024-11-06 00:00 Prednisone Merged [facility] 2025-01-07 00:00 Prednisone [facility]ed [facility] 2024-12-21 00:00 Albuterol Sulfate [facility] 2024-11-06 00:00 Furosemide M[facility]ed [facility] 2024-12-21 00:00 Furosemide [facility] 2024-11-06 00:00 Potassium Chloride [facility] 2024-12-21 00:00 Potassium Chloride [facility] 2024-11-20 00:00 Tiotropium [facility] 2025-01-07 00:00 Amoxicillin-Pot Clavulanate [facility] 2024-11-06 00:00 Prednisone [facility]erged [facility] 2024-12-21 00:00 Tolterodine [facility]erged [facility] 2024-12-21 00:00 Metoprolol Succinate [facility] Problems date description facility 2024-10-25 15:25 Paroxysmal atrial fibrillation [facility]ed [facility] 2024-11-05 00:00 Acute on chronic congestive hea rt failure [facility]ed [facility] 2024-11-05 00:00 Acute exacerbation o f chronic obstructive pulmonary disease [facility] 2024-11-06 07:18 Chronic obstructive pulmonary disease with (acute) exacerbat [facility] 2024-11-06 08:04 [facility] 10:16 Chronic obstructive pulmonary disease with (acute) exacerbat [facility] 2024-11-06 12:29 Chronic obstructive pulmonary disease with (acute) exacerbat [facility] 2024-11-08 08:43 [facility] 09:22 Chronic obstructive pulmonary disease with (acute) exacerbat [facility] 2024-11-08 09:37 Chronic obstructive pulmonary disease with (acute) exacerbat [facility] 2024-11-09 09:24 Heart failure, unspecified [employer] [facility] [employer] 2024-11-16 12:34 Dyspnea, unspecified [facility] 2024-11-22 12:30 [facility]-23 07:58 Encounter for observ ation for other suspected diseases and conditions ruled out [employer] 2024-11-23 09:45 Chronic obstructive pulmonary disease with (acute) exacerbat [facility] 2024-11-23 11:07 Chronic obstructive pulmonary disease with (acute) exacerbat [facility] 2024-11-23 19:17 Chronic obstructive pulmonary disease with (acute) [facility] 2025-01-07 00:00 Urinary tract infection [facility] Procedures date description facility 2024-11-04 00:00 X-ray of chest, single view [facility] 2025-01-07 00:00 X-ray of chest, single view [facility] 2024-11-05 00:00 assistance with resp iratory ventilation, less than 24 consecutive hours, continuous positive airway pressure [facility] Results/Labs test date facility value unit notes Result panel 1 Specimen collection (procedure) (no date) [facility] (missing) (missing) (missing) Result panel 2 Specimen collection (procedure) (no date) [facility] (missing) (missing) (missing) Result panel 3 Specimen collection (procedure) (no date) [facility] (missing) (missing) (missing) Result panel 4 Specimen collection (procedure) (no date) [facility] (missing) (missing) (missing) Result panel 5 Specimen collection (procedure) (no date) [facility] (missing) (missing) (missing) Result panel 6 Specimen collection (procedure) (no date) [facility] (missing) (missing) (missing) Result panel 7 Specimen collection (procedure) (no date) [facility] (missing) (missing) (missing) Result panel 8 Specimen collection (procedure) (no date) [facility] (missing) (missing) (missing) Result panel 9 Specimen collection (procedure) (no date) [facility] (missing) (missing) (missing) Result panel 10 Specimen collection (procedure) (no date) [facility] (missing) (missing) (missing) Result panel 11 Specimen collection (procedure) (no date) [facility] (missing) (missing) (missing) Result panel 12 Specimen collection (procedure) (no date) [facility] (missing) (missing) (missing) Result panel 13 Specimen collection (procedure) (no date) [facility] (missing) (missing) (missing) Result panel 14 Specimen collection (procedure) (no date) [facility] (missing) (missing) (missing) Result panel 15 Specimen collection (procedure) (no date) [facility] (missing) (missing) (missing) Result panel 16 Specimen collection (procedure) (no date) [facility] (missing) (missing) (missing) Result panel 17 Specimen collection (procedure) (no date) [facility] (missing) (missing) (missing) Result panel 18 Specimen collection (procedure) (no date) [facility] (missing) (missing) (missing) Result panel 19 Specimen collection (procedure) (no date) [facility] (missing) (missing) (missing) Result panel 20 Specimen collection (procedure) (no date) [facility] (missing) (missing) (missing) Result panel 21 Specimen collection (procedure) (no date) [facility] (missing) (missing) (missing) Result panel 22 Specimen collection (procedure) (no date) [facility] (missing) (missing) (missing) Result panel 23 Specimen collection (procedure) (no date) [facility] (missing) (missing) (missing) Result panel 24 Specimen collection (procedure) (no date) [facility] (missing) (missing) (missing) Result panel 25 Specimen collection (procedure) (no date) [facility] (missing) (missing) (missing) Result panel 26 Specimen collection (procedure) (no date) [facility] (missing) (missing) (missing) Result panel 27 Specimen collection (procedure) (no date) [facility] (missing) (missing) (missing) Result panel 28 Specimen collection (procedure) (no date) [facility] (missing) (missing) (missing) Result panel 29 Specimen collection (procedure) (no date) [facility] (missing) (missing) (missing) Result panel 30 Specimen collection (procedure) (no date) [facility] (missing) (missing) (missing) Result panel 31 Specimen collection (procedure) (no date) [facility] (missing) (missing) (missing) Result panel 32 Specimen collection (procedure) (no date) [facility] (missing) (missing) (missing) Result panel 33 Specimen collection (procedure) (no date) [facility] (missing) (missing) (missing) Result panel 34 Specimen collection (procedure) (no date) [facility] (missing) (missing) (missing) Result panel 35 Specimen collection (procedure) (no date) [facility] (missing) (missing) (missing) Result panel 36 Specimen collection (procedure) (no date) [facility] (missing) (missing) (missing) Result panel 37 Specimen collection (procedure) (no date) [facility] (missing) (missing) (missing) Result panel 38 Specimen collection (procedure) (no date) [facility] (missing) (missing) (missing) Result panel 39 Specimen collection (procedure) (no date) [facility] (missing) (missing) (missing) Result panel 40 Specimen collection (procedure) (no date) [facility] (missing) (missing) (missing) Result panel 41 Specimen collection (procedure) (no date) [facility] (missing) (missing) (missing) Result panel 42 Specimen collection (procedure) (no date) [facility] (missing) (missing) (missing) Result panel 43 Specimen collection (procedure) (no date) [facility] (missing) (missing) (missing) Result panel 44 Specimen collection (procedure) (no date) [facility] (missing) (missing) (missing) Result panel 45 Specimen collection (procedure) (no date) [facility] (missing) (missing) (missing) Result panel 46 Specimen collection (procedure) (no date) [facility] (missing) (missing) (missing) Result panel 47 Specimen collection (procedure) (no date) [facility] (missing) (missing) (missing) Result panel 48 Specimen collection (procedure) (no date) [facility] (missing) (missing) (missing) Result panel 49 Specimen collection (procedure) (no date) [facility] (missing) (missing) (missing) Result panel 50 Specimen collection (procedure) (no date) [facility] (missing) (missing) (missing) Result panel 51 Specimen collection (procedure) (no date) [facility] (missing) (missing) (missing) Result panel 52 Specimen collection (procedure) (no date) [facility] (missing) (missing) (missing) Result panel 53 Specimen collection (procedure) (no date) [facility] (missing) (missing) (missing) Result panel 54 Specimen collection (procedure) (no date) [facility] (missing) (missing) (missing) Result panel 55 Specimen collection (procedure) (no date) [facility] (missing) (missing) (missing) Result panel 56 Specimen collection (procedure) (no date) [facility] (missing) (missing) (missing) Result panel 57 Specimen collection (procedure) (no date) [facility] (missing) (missing) (missing) Result panel 58 Specimen collection (procedure) (no date) [facility] (missing) (missing) (missing) Result panel 59 Specimen collection (procedure) (no date) [facility] (missing) (missing) (missing) Result panel 60 Specimen collection (procedure) (no date) [facility] (missing) (missing) (missing) Result panel 61 Specimen collection (procedure) (no date) [facility] (missing) (missing) (missing) Result panel 62 Specimen collection (procedure) (no date) [facility] (missing) (missing) (missing) Result panel 63 Specimen collection (procedure) (no date) [facility] (missing) (missing) (missing) Result panel 64 Specimen collection (procedure) (no date) [facility] (missing) (missing) (missing) Result panel 65 Specimen collection (procedure) (no date) [facility] (missing) (missing) (missing) Result panel 66 Specimen collection (procedure) (no date) [facility] (missing) (missing) (missing) Result panel 67 Specimen collection (procedure) (no date) [facility] (missing) (missing) (missing) Result panel 68 Specimen collection (procedure) (no date) [facility] (missing) (missing) (missing) Result panel 69 Specimen collection (procedure) (no date) [facility] (missing) (missing) (missing) Result panel 70 Specimen collection (procedure) (no date) [facility] (missing) (missing) (missing) Result panel 71 Specimen collection (procedure) (no date) [facility] (missing) (missing) (missing) Result panel 72 Specimen collection (procedure) (no date) [facility] (missing) (missing) (missing) Result panel 73 Specimen collection (procedure) (no date) [facility] (missing) (missing) (missing) Result panel 74 Specimen collection (procedure) (no date) [facility] (missing) (missing) (missing) Result panel 75 Specimen collection (procedure) (no date) [facility] (missing) (missing) (missing) Result panel 76 Specimen collection (procedure) (no date) [facility] (missing) (missing) (missing) Result panel 77 Specimen collection (procedure) (no date) [facility] (missing) (missing) (missing) Result panel 78 Specimen collection (procedure) (no date) [facility] (missing) (missing) (missing) Result panel 79 Specimen collection (procedure) (no date) [facility] (missing) (missing) (missing) Result panel 80 Specimen collection (procedure) (no date) [facility] (missing) (missing) (missing) Result panel 81 Specimen collection (procedure) (no date) [facility] (missing) (missing) (missing) Result panel 82 Specimen collection (procedure) (no date) [facility] (missing) (missing) (missing) Result panel 83 Specimen collection (procedure) (no date) [facility] (missing) (missing) (missing) Result panel 84 Specimen collection (procedure) (no date) [facility] (missing) (missing) (missing) Result panel 85 Specimen collection (procedure) (no date) [facility] (missing) (missing) (missing) Result panel 86 Specimen collection (procedure) (no date) [facility] (missing) (missing) (missing) Result panel 87 Specimen collection (procedure) (no date) [facility] (missing) (missing) (missing) Result panel 88 Specimen collection (procedure) (no date) [facility] (missing) (missing) (missing) Result panel 89 Specimen collection (procedure) (no date) [facility] (missing) (missing) (missing) Result panel 90 Specimen collection (procedure) (no date) [facility] (missing) (missing) (missing) Result panel 91 Specimen collection (procedure) (no date) [facility] (missing) (missing) (missing) Result panel 92 Specimen collection (procedure) (no date) [facility] (missing) (missing) (missing) Result panel 93 Specimen collection (procedure) (no date) [facility] (missing) (missing) (missing) Result panel 94 Specimen collection (procedure) (no date) [facility] (missing) (missing) (missing) Result panel 95 Specimen collection (procedure) (no date) [facility] (missing) (missing) (missing) Result panel 96 Specimen collection (procedure) (no date) [facility] (missing) (missing) (missing) Result panel 97 Specimen collection (procedure) (no date) [facility] (missing) (missing) (missing) Result panel 98 Specimen collection (procedure) (no date) [facility] (missing) (missing) (missing) Result panel 99 Specimen collection (procedure) (no date) [facility] (missing) (missing) (missing) Result panel 100 Specimen collection (procedure) (no date) [facility] (missing) (missing) (missing) Result panel 101 Specimen collection (procedure) (no date) [facility] (missing) (missing) (missing) Result panel 102 Specimen collection (procedure) (no date) [facility] (missing) (missing) (missing) Result panel 103 Specimen collection (procedure) (no date) [facility] (missing) (missing) (missing) Result panel 104 Specimen collection (procedure) (no date) [facility] (missing) (missing) (missing) Result panel 105 Specimen collection (procedure) (no date) [facility] (missing) (missing) (missing) Result panel 106 Specimen collection (procedure) (no date) [facility] (missing) (missing) (missing) Result panel 107 Specimen collection (procedure) (no date) [facility] (missing) (missing) (missing) Result panel 108 Specimen collection (procedure) (no date) [facility] (missing) (missing) (missing) Result panel 109 Specimen collection (procedure) (no date) [facility] (missing) (missing) (missing) Result panel 110 Specimen collection (procedure) (no date) [facility] (missing) (missing) (missing) Result panel 111 Specimen collection (procedure) (no date) [facility] (missing) (missing) (missing) Result panel 112 Specimen collection (procedure) (no date) [facility] (missing) (missing) (missing) Result panel 113 Specimen collection (procedure) (no date) [facility] (missing) (missing) (missing) Result panel 114 Specimen collection (procedure) (no date) [facility] (missing) (missing) (missing) Result panel 115 Specimen collection (procedure) (no date) [facility] (missing) (missing) (missing) Result panel 116 Specimen collection (procedure) (no date) [facility] (missing) (missing) (missing) Result panel 117 Specimen collection (procedure) (no date) [facility] (missing) (missing) (missing) Result panel 118 Specimen collection (procedure) (no date) [facility] (missing) (missing) (missing) Result panel 119 Specimen collection (procedure) (no date) [facility] (missing) (missing) (missing) Result panel 120 Specimen collection (procedure) (no date) [facility] (missing) (missing) (missing) Result panel 121 Specimen collection (procedure) (no date) [facility] (missing) (missing) (missing) Result panel 122 Specimen collection (procedure) (no date) [facility] (missing) (missing) (missing) Result panel 123 Specimen collection (procedure) (no date) [facility] (missing) (missing) (missing) Result panel 124 Specimen collection (procedure) (no date) [facility] (missing) (missing) (missing) Result panel 125 Specimen collection (procedure) (no date) [facility] (missing) (missing) (missing) Result panel 126 Specimen collection (procedure) (no date) [facility] (missing) (missing) (missing) Result panel 127 Specimen collection (procedure) (no date) [facility] (missing) (missing) (missing) Result panel 128 Specimen collection (procedure) (no date) [facility] (missing) (missing) (missing) Result panel 129 Specimen collection (procedure) (no date) [facility] (missing) (missing) (missing) Result panel 130 Specimen collection (procedure) (no date) [facility] (missing) (missing) (missing) Result panel 131 Specimen collection (procedure) (no date) [facility] (missing) (missing) (missing) Result panel 132 Specimen collection (procedure) (no date) [facility] (missing) (missing) (missing) Result panel 133 Specimen collection (procedure) (no date) [facility] (missing) (missing) (missing) Result panel 134 Specimen collection (procedure) (no date) [facility] (missing) (missing) (missing) Result panel 135 Specimen collection (procedure) (no date) [facility] (missing) (missing) (missing) Result panel 136 Specimen collection (procedure) (no date) [facility] (missing) (missing) (missing) Result panel 137 Specimen collection (procedure) (no date) [facility] (missing) (missing) (missing) Result panel 138 Specimen collection (procedure) (no date) [facility] (missing) (missing) (missing) Result panel 139 Specimen collection (procedure) (no date) [facility] (missing) (missing) (missing) Result panel 140 Specimen collection (procedure) (no date) [facility] (missing) (missing) (missing) Result panel 141 Specimen collection (procedure) (no date) [facility] (missing) (missing) (missing) Result panel 142 Specimen collection (procedure) (no date) [facility] (missing) (missing) (missing) Result panel 143 Specimen collection (procedure) (no date) [facility] (missing) (missing) (missing) Result panel 144 Specimen collection (procedure) (no date) [facility] (missing) (missing) (missing) Result panel 145 Specimen collection (procedure) (no date) [facility] (missing) (missing) (missing) Result panel 146 Specimen collection (procedure) (no date) [facility] (missing) (missing) (missing) Result panel 147 Specimen collection (procedure) (no date) [facility] (missing) (missing) (missing) Result panel 148 Specimen collection (procedure) (no date) [facility] (missing) (missing) (missing) Result panel 149 Specimen collection (procedure) (no date) [facility] (missing) (missing) (missing) Result panel 150 Specimen collection (procedure) (no date) [facility] (missing) (missing) (missing) Result panel 151 Specimen collection (procedure) (no date) [facility] (missing) (missing) (missing) Result panel 152 Specimen collection (procedure) (no date) [facility] (missing) (missing) (missing) Result panel 153 Specimen collection (procedure) (no date) [facility] (missing) (missing) (missing) Result panel 154 Specimen collection (procedure) (no date) [facility] (missing) (missing) (missing) Result panel 155 Specimen collection (procedure) (no date) [facility] (missing) (missing) (missing) Result panel 156 Specimen collection (procedure) (no date) [facility] (missing) (missing) (missing) Result panel 157 Specimen collection (procedure) (no date) [facility] (missing) (missing) (missing) Result panel 158 Specimen collection (procedure) (no date) [facility] (missing) (missing) (missing) Result panel 159 Specimen collection (procedure) (no date) [facility] (missing) (missing) (missing) Result panel 160 Specimen collection (procedure) (no date) [facility] (missing) (missing) (missing) Result panel 161 Specimen collection (procedure) (no date) [facility] (missing) (missing) (missing) Result panel 162 Specimen collection (procedure) (no date) [facility] (missing) (missing) (missing) Result panel 163 Specimen collection (procedure) (no date) [facility] (missing) (missing) (missing) Result panel 164 Specimen collection (procedure) (no date) [facility] (missing) (missing) (missing) Result panel 165 Specimen collection (procedure) (no date) [facility] (missing) (missing) (missing) Result panel 166 Specimen collection (procedure) (no date) [facility] (missing) (missing) (missing) Result panel 167 Specimen collection (procedure) (no date) [facility] (missing) (missing) (missing) Result panel 168 Specimen collection (procedure) (no date) [facility] (missing) (missing) (missing) Result panel 169 Specimen collection (procedure) (no date) [facility] (missing) (missing) (missing) Result panel 170 Specimen collection (procedure) (no date) [facility] (missing) (missing) (missing) Result panel 171 Specimen collection (procedure) (no date) [facility] (missing) (missing) (missing) Result panel 172 Specimen collection (procedure) (no date) [facility] (missing) (missing) (missing) Result panel 173 Specimen collection (procedure) (no date) [facility] (missing) (missing) (missing) Result panel 174 Specimen collection (procedure) (no date) [facility] (missing) (missing) (missing) Result panel 175 Specimen collection (procedure) (no date) [facility] (missing) (missing) (missing) Result panel 176 Specimen collection (procedure) (no date) [facility] (missing) (missing) (missing) Result panel 177 Specimen collection (procedure) (no date) [facility] (missing) (missing) (missing) Result panel 178 Specimen collection (procedure) (no date) [facility] (missing) (missing) (missing) Result panel 179 Specimen collection (procedure) (no date) [facility] (missing) (missing) (missing) Result panel 180 Specimen collection (procedure) (no date) [facility] (missing) (missing) (missing) Result panel 181 Specimen collection (procedure) (no date) [facility] (missing) (missing) (missing) Result panel 182 Specimen collection (procedure) (no date) [facility] (missing) (missing) (missing) Result panel 183 Specimen collection (procedure) (no date) [facility] (missing) (missing) (missing) Result panel 184 Specimen collection (procedure) (no date) [facility] (missing) (missing) (missing) Result panel 185 Specimen collection (procedure) (no date) [facility] (missing) (missing) (missing) Result panel 186 Specimen collection (procedure) (no date) [facility] (missing) (missing) (missing) Result panel 187 Specimen collection (procedure) (no date) [facility] (missing) (missing) (missing) Result panel 188 Specimen collection (procedure) (no date) [facility] (missing) (missing) (missing) Result panel 189 Specimen collection (procedure) (no date) [facility] (missing) (missing) (missing) Result panel 190 Specimen collection (procedure) (no date) [facility] (missing) (missing) (missing) Result panel 191 Specimen collection (procedure) (no date) [facility] (missing) (missing) (missing) Result panel 192 Specimen collection (procedure) (no date) [facility] (missing) (missing) (missing) Result panel 193 Specimen collection (procedure) (no date) [facility] (missing) (missing) (missing) Result panel 194 Specimen collection (procedure) (no date) [facility] (missing) (missing) (missing) Result panel 195 Specimen collection (procedure) (no date) [facility] (missing) (missing) (missing) Result panel 196 Specimen collection (procedure) (no date) [facility] (missing) (missing) (missing) Result panel 197 Specimen collection (procedure) (no date) [facility] (missing) (missing) (missing) Result panel 198 Specimen collection (procedure) (no date) [facility] (missing) (missing) (missing) Result panel 199 Specimen collection (procedure) (no date) [facility] (missing) (missing) (missing) Result panel 200 Specimen collection (procedure) (no date) [facility] (missing) (missing) (missing) Result panel 201 Specimen collection (procedure) (no date) [facility] (missing) (missing) (missing) Result panel 202 Specimen collection (procedure) (no date) [facility] (missing) (missing) (missing) Result panel 203 Specimen collection (procedure) (no date) [facility] (missing) (missing) (missing) Result panel 204 Specimen collection (procedure) (no date) [facility] (missing) (missing) (missing) Result panel 205 Specimen collection (procedure) (no date) [facility] (missing) (missing) (missing) Result panel 206 Specimen collection (procedure) (no date) [facility] (missing) (missing) (missing) Result panel 207 Specimen collection (procedure) (no date) [facility] (missing) (missing) (missing) Result panel 208 Specimen collection (procedure) (no date) [facility] (missing) (missing) (missing) Result panel 209 Specimen collection (procedure) (no date) [facility] (missing) (missing) (missing) Result panel 210 Specimen collection (procedure) (no date) [facility] (missing) (missing) (missing) Result panel 211 Specimen collection (procedure) (no date) [facility] (missing) (missing) (missing) Result panel 212 Specimen collection (procedure) (no date) [facility] (missing) (missing) (missing) Result panel 213 Specimen collection (procedure) (no date) [facility] (missing) (missing) (missing) Result panel 214 Specimen collection (procedure) (no date) [facility] (missing) (missing) (missing) Result panel 215 Specimen collection (procedure) (no date) [facility] (missing) (missing) (missing) Result panel 216 Specimen collection (procedure) (no date) [facility] (missing) (missing) (missing) Result panel 217 Specimen collection (procedure) (no date) [facility] (missing) (missing) (missing) Result panel 218 Specimen collection (procedure) (no date) [facility] (missing) (missing) (missing) Result panel 219 Specimen collection (procedure) (no date) [facility] (missing) (missing) (missing) Result panel 220 Specimen collection (procedure) (no date) [facility] (missing) (missing) (missing) Result panel 221 Specimen collection (procedure) (no date) [facility] (missing) (missing) (missing) Result panel 222 Specimen collection (procedure) (no date) [facility] (missing) (missing) (missing) Result panel 223 Specimen collection (procedure) (no date) [facility] (missing) (missing) (missing) Result panel 224 Specimen collection (procedure) (no date) [facility] (missing) (missing) (missing) Result panel 225 Specimen collection (procedure) (no date) [facility] (missing) (missing) (missing) Result panel 226 Specimen collection (procedure) (no date) [facility] (missing) (missing) (missing) Result panel 227 Specimen collection (procedure) (no date) [facility] (missing) (missing) (missing) Result panel 228 Specimen collection (procedure) (no date) [facility] (missing) (missing) (missing) Result panel 229 Specimen collection (procedure) (no date) [facility] (missing) (missing) (missing) Result panel 230 Specimen collection (procedure) (no date) [facility] (missing) (missing) (missing) Result panel 231 Specimen collection (procedure) (no date) [facility] (missing) (missing) (missing) Result panel 232 Specimen collection (procedure) (no date) [facility] (missing) (missing) (missing) Result panel 233 Specimen collection (procedure) (no date) [facility] (missing) (missing) (missing) Result panel 234 Specimen collection (procedure) (no date) [facility] (missing) (missing) (missing) Result panel 235 Specimen collection (procedure) (no date) [facility] (missing) (missing) (missing) Result panel 236 Specimen collection (procedure) (no date) [facility] (missing) (missing) (missing) Result panel 237 Specimen collection (procedure) (no date) [facility] (missing) (missing) (missing) Result panel 238 Specimen collection (procedure) (no date) [facility] (missing) (missing) (missing) Result panel 239 Specimen collection (procedure) (no date) [facility] (missing) (missing) (missing) Result panel 240 Specimen collection (procedure) (no date) [facility] (missing) (missing) (missing) Result panel 241 Specimen collection (procedure) (no date) [facility] (missing) (missing) (missing) Result panel 242 Specimen collection (procedure) (no date) [facility] (missing) (missing) (missing) Result panel 243 Specimen collection (procedure) (no date) [facility] (missing) (missing) (missing) Result panel 244 Specimen collection (procedure) (no date) [facility] (missing) (missing) (missing) Result panel 245 Specimen collection (procedure) (no date) [facility] (missing) (missing) (missing) Result panel 246 Specimen collection (procedure) (no date) [facility] (missing) (missing) (missing) Result panel 247 Specimen collection (procedure) (no date) [facility] (missing) (missing) (missing) Result panel 248 Specimen collection (procedure) (no date) [facility] (missing) (missing) (missing) Result panel 249 Specimen collection (procedure) (no date) [facility] (missing) (missing) (missing) Result panel 250 Specimen collection (procedure) (no date) [facility] (missing) (missing) (missing) Result panel 251 Specimen collection (procedure) (no date) [facility] (missing) (missing) (missing) Result panel 252 Specimen collection (procedure) (no date) [facility] (missing) (missing) (missing) Result panel 253 Specimen collection (procedure) (no date) [facility] (missing) (missing) (missing) Result panel 254 Specimen collection (procedure) (no date) [facility] (missing) (missing) (missing) Result panel 255 Specimen collection (procedure) (no date) [facility] (missing) (missing) (missing) Result panel 256 Specimen collection (procedure) (no date) [facility] (missing) (missing) (missing) Result panel 257 Specimen collection (procedure) (no date) [facility] (missing) (missing) (missing) Result panel 258 Specimen collection (procedure) (no date) [facility] (missing) (missing) (missing) Result panel 259 Specimen collection (procedure) (no date) [facility] (missing) (missing) (missing) Result panel 260 Specimen collection (procedure) (no date) [facility] (missing) (missing) (missing) Result panel 261 Specimen collection (procedure) (no date) [facility] (missing) (missing) (missing) Result panel 262 Specimen collection (procedure) (no date) [facility] (missing) (missing) (missing) Result panel 263 Specimen collection (procedure) (no date) [facility] (missing) (missing) (missing) Result panel 264 Specimen collection (procedure) (no date) [facility] (missing) (missing) (missing) Result panel 265 Specimen collection (procedure) (no date) [facility] (missing) (missing) (missing) Result panel 266 Specimen collection (procedure) (no date) [facility] (missing) (missing) (missing) Result panel 267 Specimen collection (procedure) (no date) [facility] (missing) (missing) (missing) Result panel 268 Specimen collection (procedure) (no date) [facility] (missing) (missing) (missing) Result panel 269 Specimen collection (procedure) (no date) [facility] (missing) (missing) (missing) Result panel 270 Specimen collection (procedure) (no date) [facility] (missing) (missing) (missing) Result panel 271 Specimen collection (procedure) (no date) [facility] (missing) (missing) (missing) Result panel 272 Specimen collection (procedure) (no date) [facility] (missing) (missing) (missing) Result panel 273 Specimen collection (procedure) (no date) [facility] (missing) (missing) (missing) Result panel 274 Specimen collection (procedure) (no date) [facility] (missing) (missing) (missing) Result panel 275 Specimen collection (procedure) (no date) [facility] (missing) (missing) (missing) Result panel 276 Specimen collection (procedure) (no date) [facility] (missing) (missing) (missing) Result panel 277 Specimen collection (procedure) (no date) [facility] (missing) (missing) (missing) Result panel 278 Specimen collection (procedure) (no date) [facility] (missing) (missing) (missing) Result panel 279 Specimen collection (procedure) (no date) [facility] (missing) (missing) (missing) Result panel 280 Specimen collection (procedure) (no date) [facility] (missing) (missing) (missing) Result panel 281 Specimen collection (procedure) (no date) [facility] (missing) (missing) (missing) Result panel 282 Specimen collection (procedure) (no date) [facility] (missing) (missing) (missing) Result panel 283 Specimen collection (procedure) (no date) [facility] (missing) (missing) (missing) Result panel 284 Specimen collection (procedure) (no date) [facility] (missing) (missing) (missing) Result panel 285 Specimen collection (procedure) (no date) [facility] (missing) (missing) (missing) Result panel 286 Specimen collection (procedure) (no date) [facility] (missing) (missing) (missing) Result panel 287 Specimen collection (procedure) (no date) [facility] (missing) (missing) (missing) Result panel 288 Specimen collection (procedure) (no date) [facility] (missing) (missing) (missing) Result panel 289 Specimen collection (procedure) (no date) [facility] (missing) (missing) (missing) Result panel 290 Specimen collection (procedure) (no date) [facility] (missing) (missing) (missing) Result panel 291 Specimen collection (procedure) (no date) [facility] (missing) (missing) (missing) Result panel 292 Specimen collection (procedure) (no date) [facility] (missing) (missing) (missing) Result panel 293 Specimen collection (procedure) (no date) [facility] (missing) (missing) (missing) Result panel 294 Specimen collection (procedure) (no date) [facility] (missing) (missing) (missing) Result panel 295 Specimen collection (procedure) (no date) [facility] (missing) (missing) (missing) Result panel 296 Specimen collection (procedure) (no date) [facility] (missing) (missing) (missing) Result panel 297 Specimen collection (procedure) (no date) [facility] (missing) (missing) (missing) Result panel 298 Specimen collection (procedure) (no date) [facility] (missing) (missing) (missing) Result panel 299 Specimen collection (procedure) (no date) [facility] (missing) (missing) (missing) Result panel 300 Specimen collection (procedure) (no date) [facility] (missing) (missing) (missing) Result panel 301 Specimen collection (procedure) (no date) [facility] (missing) (missing) (missing) Result panel 302 Specimen collection (procedure) (no date) [facility] (missing) (missing) (missing) Result panel 303 Specimen collection (procedure) (no date) [facility] (missing) (missing) (missing) Result panel 304 Specimen collection (procedure) (no date) [facility] (missing) (missing) (missing) Result panel 305 Specimen collection (procedure) (no date) [facility] (missing) (missing) (missing) Result panel 306 Specimen collection (procedure) (no date) [facility] (missing) (missing) (missing) Result panel 307 Specimen collection (procedure) (no date) [facility] (missing) (missing) (missing) Result panel 308 Specimen collection (procedure) (no date) [facility] (missing) (missing) (missing) Result panel 309 Specimen collection (procedure) (no date) [facility] (missing) (missing) (missing) Result panel 310 Specimen collection (procedure) (no date) [facility] (missing) (missing) (missing) Result panel 311 Specimen collection (procedure) (no date) [facility] (missing) (missing) (missing) Result panel 312 Specimen collection (procedure) (no date) [facility] (missing) (missing) (missing) Result panel 313 Specimen collection (procedure) (no date) [facility] (missing) (missing) (missing) Result panel 314 Specimen collection (procedure) (no date) [facility] (missing) (missing) (missing) Result panel 315 Specimen collection (procedure) (no date) [facility] (missing) (missing) (missing) Result panel 316 Specimen collection (procedure) (no date) [facility] (missing) (missing) (missing) Result panel 317 Specimen collection (procedure) (no date) [facility] (missing) (missing) (missing) Result panel 318 Specimen collection (procedure) (no date) [facility] (missing) (missing) (missing) Result panel 319 Specimen collection (procedure) (no date) [facility] (missing) (missing) (missing) Result panel 320 Specimen collection (procedure) (no date) [facility] (missing) (missing) (missing) Result panel 321 Specimen collection (procedure) (no date) [facility] (missing) (missing) (missing) Result panel 322 Specimen collection (procedure) (no date) [facility] (missing) (missing) (missing) Result panel 323 Specimen collection (procedure) (no date) [facility] (missing) (missing) (missing) Result panel 324 Specimen collection (procedure) (no date) [facility] (missing) (missing) (missing) Result panel 325 Specimen collection (procedure) (no date) [facility] (missing) (missing) (missing) Result panel 326 Specimen collection (procedure) (no date) [facility] (missing) (missing) (missing) Result panel 327 Specimen collection (procedure) (no date) [facility] (missing) (missing) (missing) Result panel 328 Specimen collection (procedure) (no date) [facility] (missing) (missing) (missing) Result panel 329 Specimen collection (procedure) (no date) [facility] (missing) (missing) (missing) Result panel 330 Specimen collection (procedure) (no date) [facility] (missing) (missing) (missing) Result panel 331 Specimen collection (procedure) (no date) [facility] (missing) (missing) (missing) Result panel 332 Specimen collection (procedure) (no date) [facility] (missing) (missing) (missing) Result panel 333 Specimen collection (procedure) (no date) [facility] (missing) (missing) (missing) Result panel 334 Specimen collection (procedure) (no date) [facility] (missing) (missing) (missing) Result panel 335 Specimen collection (procedure) (no date) [facility] (missing) (missing) (missing) Result panel 336 Specimen collection (procedure) (no date) [facility] (missing) (missing) (missing) Result panel 337 Specimen collection (procedure) (no date) [facility] (missing) (missing) (missing) Result panel 338 Specimen collection (procedure) (no date) [facility] (missing) (missing) (missing) Result panel 339 Specimen collection (procedure) (no date) [facility] (missing) (missing) (missing) Result panel 340 Specimen collection (procedure) (no date) [facility] (missing) (missing) (missing) Result panel 341 Specimen collection (procedure) (no date) [facility] (missing) (missing) (missing) Result panel 342 Specimen collection (procedure) (no date) [facility] (missing) (missing) (missing) Result panel 343 Specimen collection (procedure) (no date) [facility] (missing) (missing) (missing) Result panel 344 Specimen collection (procedure) (no date) [facility] (missing) (missing) (missing) Result panel 345 Specimen collection (procedure) (no date) [facility] (missing) (missing) (missing) Result panel 346 Specimen collection (procedure) (no date) [facility] (missing) (missing) (missing) Result panel 347 Specimen collection (procedure) (no date) [facility] (missing) (missing) (missing) Result panel 348 Specimen collection (procedure) (no date) [facility] (missing) (missing) (missing) Result panel 349 Specimen collection (procedure) (no date) [facility] (missing) (missing) (missing) Result panel 350 Specimen collection (procedure) (no date) [facility] (missing) (missing) (missing) Result panel 351 Specimen collection (procedure) (no date) [facility] (missing) (missing) (missing) Result panel 352 Specimen collection (procedure) (no date) [facility] (missing) (missing) (missing) Result panel 353 Specimen collection (procedure) (no date) [facility] (missing) (missing) (missing) Result panel 354 Specimen collection (procedure) (no date) [facility] (missing) (missing) (missing) Result panel 355 Specimen collection (procedure) (no date) [facility] (missing) (missing) (missing) Result panel 356 Specimen collection (procedure) (no date) [facility] (missing) (missing) (missing) Result panel 357 Specimen collection (procedure) (no date) [facility] (missing) (missing) (missing) Result panel 358 Specimen collection (procedure) (no date) [facility] (missing) (missing) (missing) Result panel 359 Specimen collection (procedure) (no date) [facility] (missing) (missing) (missing) Result panel 360 Specimen collection (procedure) (no date) [facility] (missing) (missing) (missing) Result panel 361 Specimen collection (procedure) (no date) [facility] (missing) (missing) (missing) Result panel 362 Specimen collection (procedure) (no date) [facility] (missing) (missing) (missing) Result panel 363 Specimen collection (procedure) (no date) [facility] (missing) (missing) (missing) Result panel 364 Specimen collection (procedure) (no date) [facility] (missing) (missing) (missing) Result panel 365 Specimen collection (procedure) (no date) [facility] (missing) (missing) (missing) Result panel 366 Specimen collection (procedure) (no date) [facility] (missing) (missing) (missing) Result panel 367 Specimen collection (procedure) (no date) [facility] (missing) (missing) (missing) Result panel 368 Specimen collection (procedure) (no date) [facility] (missing) (missing) (missing) Result panel 369 Specimen collection (procedure) (no date) [facility] (missing) (missing) (missing) Result panel 370 Specimen collection (procedure) (no date) [facility] (missing) (missing) (missing) Result panel 371 Specimen collection (procedure) (no date) [facility] (missing) (missing) (missing) Result panel 372 Specimen collection (procedure) (no date) [facility] (missing) (missing) (missing) Result panel 373 Specimen collection (procedure) (no date) [facility] (missing) (missing) (missing) Result panel 374 Specimen collection (procedure) (no date) [facility] (missing) (missing) (missing) Result panel 375 Specimen collection (procedure) (no date) [facility] (missing) (missing) (missing) Result panel 376 Specimen collection (procedure) (no date) [facility] (missing) (missing) (missing) Result panel 377 Specimen collection (procedure) (no date) [facility] (missing) (missing) (missing) Result panel 378 Specimen collection (procedure) (no date) [facility] (missing) (missing) (missing) Result panel 379 Specimen collection (procedure) (no date) [facility] (missing) (missing) (missing) Result panel 380 Specimen collection (procedure) (no date) [facility] (missing) (missing) (missing) Result panel 381 Specimen collection (procedure) (no date) [facility] (missing) (missing) (missing) Result panel 382 Specimen collection (procedure) (no date) [facility] (missing) (missing) (missing) Result panel 383 Specimen collection (procedure) (no date) [facility] (missing) (missing) (missing) Result panel 384 Specimen collection (procedure) (no date) [facility] (missing) (missing) (missing) Result panel 385 Specimen collection (procedure) (no date) [facility] (missing) (missing) (missing) Result panel 386 Specimen collection (procedure) (no date) [facility] (missing) (missing) (missing) Result panel 387 Specimen collection (procedure) (no date) [facility] (missing) (missing) (missing) Result panel 388 Specimen collection (procedure) (no date) [facility] (missing) (missing) (missing) Result panel 389 Specimen collection (procedure) (no date) [facility] (missing) (missing) (missing) Result panel 390 Specimen collection (procedure) (no date) [facility] (missing) (missing) (missing) Result panel 391 Specimen collection (procedure) (no date) [facility] (missing) (missing) (missing) Result panel 392 Specimen collection (procedure) (no date) [facility] (missing) (missing) (missing) Result panel 393 Specimen collection (procedure) (no date) [facility] (missing) (missing) (missing) Result panel 394 Specimen collection (procedure) (no date) [facility] (missing) (missing) (missing) Result panel 395 Specimen collection (procedure) (no date) [facility] (missing) (missing) (missing) Result panel 396 Specimen collection (procedure) (no date) [facility] (missing) (missing) (missing) Result panel 397 Specimen collection (procedure) (no date) [facility] (missing) (missing) (missing) Result panel 398 Specimen collection (procedure) (no date) [facility] (missing) (missing) (missing) Result panel 399 Specimen collection (procedure) (no date) [facility] (missing) (missing) (missing) Result panel 400 Specimen collection (procedure) (no date) [facility] (missing) (missing) (missing) Result panel 401 Specimen collection (procedure) (no date) [facility] (missing) (missing) (missing) Result panel 402 Specimen collection (procedure) (no date) [facility] (missing) (missing) (missing) Result panel 403 Specimen collection (procedure) (no date) [facility] (missing) (missing) (missing) Result panel 404 Specimen collection (procedure) (no date) [facility] (missing) (missing) (missing) Result panel 405 Specimen collection (procedure) (no date) [facility] (missing) (missing) (missing) Result panel 406 Specimen collection (procedure) (no date) [facility] (missing) (missing) (missing) Result panel 407 Specimen collection (procedure) (no date) [facility] (missing) (missing) (missing) Result panel 408 Specimen collection (procedure) (no date) [facility] (missing) (missing) (missing) Result panel 409 Specimen collection (procedure) (no date) [facility] (missing) (missing) (missing) Result panel 410 Specimen collection (procedure) (no date) [facility] (missing) (missing) (missing) Result panel 411 Specimen collection (procedure) (no date) [facility] (missing) (missing) (missing) Result panel 412 Specimen collection (procedure) (no date) [facility] (missing) (missing) (missing) Result panel 413 Specimen collection (procedure) (no date) [facility] (missing) (missing) (missing) Result panel 414 Specimen collection (procedure) (no date) [facility] (missing) (missing) (missing) Result panel 415 Specimen collection (procedure) (no date) [facility] (missing) (missing) (missing) Result panel 416 Specimen collection (procedure) (no date) [facility] (missing) (missing) (missing) Result panel 417 Specimen collection (procedure) (no date) [facility] (missing) (missing) (missing) Result panel 418 Specimen collection (procedure) (no date) [facility] (missing) (missing) (missing) Result panel 419 Specimen collection (procedure) (no date) [facility] (missing) (missing) (missing) Result panel 420 Specimen collection (procedure) (no date) [facility] (missing) (missing) (missing) Result panel 421 Specimen collection (procedure) (no date) [facility] (missing) (missing) (missing) Result panel 422 Specimen collection (procedure) (no date) [facility] (missing) (missing) (missing) Result panel 423 Specimen collection (procedure) (no date) [facility] (missing) (missing) (missing) Result panel 424 Specimen collection (procedure) (no date) [facility] (missing) (missing) (missing) Result panel 425 Specimen collection (procedure) (no date) [facility] (missing) (missing) (missing) Result panel 426 Specimen collection (procedure) (no date) [facility] (missing) (missing) (missing) Result panel 427 Specimen collection (procedure) (no date) [facility] (missing) (missing) (missing) Result panel 428 Specimen collection (procedure) (no date) [facility] (missing) (missing) (missing) Result panel 429 Specimen collection (procedure) (no date) [facility] (missing) (missing) (missing) Result panel 430 Specimen collection (procedure) (no date) [facility] (missing) (missing) (missing) Result panel 431 Specimen collection (procedure) (no date) [facility] (missing) (missing) (missing) Result panel 432 Specimen collection (procedure) (no date) [facility] (missing) (missing) (missing) Result panel 433 Specimen collection (procedure) (no date) [facility] (missing) (missing) (missing) Result panel 434 Specimen collection (procedure) (no date) [facility] (missing) (missing) (missing) Result panel 435 Specimen collection (procedure) (no date) [facility] (missing) (missing) (missing) Result panel 436 Specimen collection (procedure) (no date) [facility] (missing) (missing) (missing) Result panel 437 Specimen collection (procedure) (no date) [facility] (missing) (missing) (missing) Result panel 438 Specimen collection (procedure) (no date) [facility] (missing) (missing) (missing) Result panel 439 Specimen collection (procedure) (no date) [facility] (missing) (missing) (missing) Result panel 440 Specimen collection (procedure) (no date) [facility] (missing) (missing) (missing) Result panel 441 Specimen collection (procedure) (no date) [facility] (missing) (missing) (missing) Result panel 442 Specimen collection (procedure) (no date) [facility] (missing) (missing) (missing) Result panel 443 Specimen collection (procedure) (no date) [facility] (missing) (missing) (missing) Result panel 444 Specimen collection (procedure) (no date) [facility] (missing) (missing) (missing) Result panel 445 Specimen collection (procedure) (no date) [facility] (missing) (missing) (missing) Result panel 446 Specimen collection (procedure) (no date) [facility] (missing) (missing) (missing) Result panel 447 Specimen collection (procedure) (no date) [facility] (missing) (missing) (missing) Result panel 448 Specimen collection (procedure) (no date) [facility] (missing) (missing) (missing) Result panel 449 Specimen collection (procedure) (no date) [facility] (missing) (missing) (missing) Result panel 450 Specimen collection (procedure) (no date) [facility] (missing) (missing) (missing) Result panel 451 Specimen collection (procedure) (no date) [facility] (missing) (missing) (missing) Result panel 452 Specimen collection (procedure) (no date) [facility] (missing) (missing) (missing) Result panel 453 Specimen collection (procedure) (no date) [facility] (missing) (missing) (missing) Result panel 454 Specimen collection (procedure) (no date) [facility] (missing) (missing) (missing) Result panel 455 Specimen collection (procedure) (no date) [facility] (missing) (missing) (missing) Result panel 456 Specimen collection (procedure) (no date) [facility] (missing) (missing) (missing) Result panel 457 Specimen collection (procedure) (no date) [facility] (missing) (missing) (missing) Result panel 458 Specimen collection (procedure) (no date) [facility] (missing) (missing) (missing) Result panel 459 Specimen collection (procedure) (no date) [facility] (missing) (missing) (missing) Result panel 460 Specimen collection (procedure) (no date) [facility] (missing) (missing) (missing) Result panel 461 Specimen collection (procedure) (no date) [facility] (missing) (missing) (missing) Result panel 462 Specimen collection (procedure) (no date) [facility] (missing) (missing) (missing) Result panel 463 Specimen collection (procedure) (no date) [facility] (missing) (missing) (missing) Result panel 464 Specimen collection (procedure) (no date) [facility] (missing) (missing) (missing) Result panel 465 Specimen collection (procedure) (no date) [facility] (missing) (missing) (missing) Result panel 466 Specimen collection (procedure) (no date) [facility] (missing) (missing) (missing) Result panel 467 Specimen collection (procedure) (no date) [facility] (missing) (missing) (missing) Result panel 468 Specimen collection (procedure) (no date) [facility] (missing) (missing) (missing) Result panel 469 Specimen collection (procedure) (no date) [facility] (missing) (missing) (missing) Result panel 470 Specimen collection (procedure) (no date) [facility] (missing) (missing) (missing) Result panel 471 Specimen collection (procedure) (no date) [facility] (missing) (missing) (missing) Result panel 472 Specimen collection (procedure) (no date) [facility] (missing) (missing) (missing) Result panel 473 Specimen collection (procedure) (no date) [facility] (missing) (missing) (missing) Result panel 474 Specimen collection (procedure) (no date) [facility] (missing) (missing) (missing) Result panel 475 Specimen collection (procedure) (no date) [facility] (missing) (missing) (missing) Result panel 476 Specimen collection (procedure) (no date) [facility] (missing) (missing) (missing) Result panel 477 Specimen collection (procedure) (no date) [facility] (missing) (missing) (missing) Result panel 478 Specimen collection (procedure) (no date) [facility] (missing) (missing) (missing) Result panel 479 Specimen collection (procedure) (no date) [facility] (missing) (missing) (missing) Result panel 480 Specimen collection (procedure) (no date) [facility] (missing) (missing) (missing) Result panel 481 Specimen collection (procedure) (no date) [facility] (missing) (missing) (missing) Result panel 482 Specimen collection (procedure) (no date) [facility] (missing) (missing) (missing) Result panel 483 Specimen collection (procedure) (no date) [facility] (missing) (missing) (missing) Result panel 484 Specimen collection (procedure) (no date) [facility] (missing) (missing) (missing) Result panel 485 Specimen collection (procedure) (no date) [facility] (missing) (missing) (missing) Result panel 486 Specimen collection (procedure) (no date) [facility] (missing) (missing) (missing) Result panel 487 Specimen collection (procedure) (no date) [facility] (missing) (missing) (missing) Result panel 488 Specimen collection (procedure) (no date) [facility] (missing) (missing) (missing) Result panel 489 Specimen collection (procedure) (no date) [facility] (missing) (missing) (missing) Result panel 490 Specimen collection (procedure) (no date) [facility] (missing) (missing) (missing) Result panel 491 Specimen collection (procedure) (no date) [facility] (missing) (missing) (missing) Result panel 492 Specimen collection (procedure) (no date) [facility] (missing) (missing) (missing) Result panel 493 Specimen collection (procedure) (no date) [facility] (missing) (missing) (missing) Result panel 494 Specimen collection (procedure) (no date) [facility] (missing) (missing) (missing) Result panel 495 Specimen collection (procedure) (no date) [facility] (missing) (missing) (missing) Result panel 496 Specimen collection (procedure) (no date) [facility] (missing) (missing) (missing) Result panel 497 Specimen collection (procedure) (no date) [facility] (missing) (missing) (missing) Result panel 498 Specimen collection (procedure) (no date) [facility] (missing) (missing) (missing) Result panel 499 Specimen collection (procedure) (no date) [facility] (missing) (missing) (missing) Result panel 500 Specimen collection (procedure) (no date) [facility] (missing) (missing) (missing) Result panel 501 Specimen collection (procedure) (no date) [facility] (missing) (missing) (missing) Result panel 502 Specimen collection (procedure) (no date) [facility] (missing) (missing) (missing) Result panel 503 Specimen collection (procedure) (no date) [facility] (missing) (missing) (missing) Result panel 504 Specimen collection (procedure) (no date) [facility] (missing) (missing) (missing) Result panel 505 Specimen collection (procedure) (no date) [facility] (missing) (missing) (missing) Result panel 506 Specimen collection (procedure) (no date) [facility] (missing) (missing) (missing) Result panel 507 Specimen collection (procedure) (no date) [facility] (missing) (missing) (missing) Result panel 508 Specimen collection (procedure) (no date) [facility] (missing) (missing) (missing) Result panel 509 Specimen collection (procedure) (no date) [facility] (missing) (missing) (missing) Result panel 510 Specimen collection (procedure) (no date) [facility] (missing) (missing) (missing) Result panel 511 Specimen collection (procedure) (no date) [facility] (missing) (missing) (missing) Result panel 512 Specimen collection (procedure) (no date) [facility] (missing) (missing) (missing) Result panel 513 Specimen collection (procedure) (no date) [facility] (missing) (missing) (missing) Result panel 514 Specimen collection (procedure) (no date) [facility] (missing) (missing) (missing) Result panel 515 Specimen collection (procedure) (no date) [facility] (missing) (missing) (missing) Result panel 516 Specimen collection (procedure) (no date) [facility] (missing) (missing) (missing) Result panel 517 Specimen collection (procedure) (no date) [facility] (missing) (missing) (missing) Result panel 518 Specimen collection (procedure) (no date) [facility] (missing) (missing) (missing) Result panel 519 Specimen collection (procedure) (no date) [facility] (missing) (missing) (missing) Result panel 520 Specimen collection (procedure) (no date) [facility] (missing) (missing) (missing) Result panel 521 Specimen collection (procedure) (no date) [facility] (missing) (missing) (missing) Result panel 522 Specimen collection (procedure) (no date) [facility] (missing) (missing) (missing) Result panel 523 Specimen collection (procedure) (no date) [facility] (missing) (missing) (missing) Result panel 524 Specimen collection (procedure) (no date) [facility] (missing) (missing) (missing) Result panel 525 Specimen collection (procedure) (no date) [facility] (missing) (missing) (missing) Result panel 526 Specimen collection (procedure) (no date) [facility] (missing) (missing) (missing) Result panel 527 Specimen collection (procedure) (no date) [facility] (missing) (missing) (missing) Result panel 528 Specimen collection (procedure) (no date) [facility] (missing) (missing) (missing) Result panel 529 Specimen collection (procedure) (no date) [facility] (missing) (missing) (missing) Result panel 530 Specimen collection (procedure) (no date) [facility] (missing) (missing) (missing) Result panel 531 Specimen collection (procedure) (no date) [facility] (missing) (missing) (missing) Result panel 532 Specimen collection (procedure) (no date) [facility] (missing) (missing) (missing) Result panel 533 Specimen collection (procedure) (no date) [facility] (missing) (missing) (missing) Result panel 534 Specimen collection (procedure) (no date) [facility] (missing) (missing) (missing) Result panel 535 Specimen collection (procedure) (no date) [facility] (missing) (missing) (missing) Result panel 536 Specimen collection (procedure) (no date) [facility] (missing) (missing) (missing) Result panel 537 Specimen collection (procedure) (no date) [facility] (missing) (missing) (missing) Result panel 538 Specimen collection (procedure) (no date) [facility] (missing) (missing) (missing) Result panel 539 Specimen collection (procedure) (no date) [facility] (missing) (missing) (missing) Result panel 540 Specimen collection (procedure) (no date) [facility] (missing) (missing) (missing) Result panel 541 Specimen collection (procedure) (no date) [facility] (missing) (missing) (missing) Result panel 542 Specimen collection (procedure) (no date) [facility] (missing) (missing) (missing) Result panel 543 Specimen collection (procedure) (no date) [facility] (missing) (missing) (missing) Result panel 544 Specimen collection (procedure) (no date) [facility] (missing) (missing) (missing) Result panel 545 Specimen collection (procedure) (no date) [facility] (missing) (missing) (missing) Result panel 546 Specimen collection (procedure) (no date) [facility] (missing) (missing) (missing) Result panel 547 Specimen collection (procedure) (no date) [facility] (missing) (missing) (missing) Result panel 548 Specimen collection (procedure) (no date) [facility] (missing) (missing) (missing) Result panel 549 Specimen collection (procedure) (no date) [facility] (missing) (missing) (missing) Result panel 550 Specimen collection (procedure) (no date) [facility] (missing) (missing) (missing) Result panel 551 Specimen collection (procedure) (no date) [facility] (missing) (missing) (missing) Result panel 552 Specimen collection (procedure) (no date) [facility] (missing) (missing) (missing) Result panel 553 Specimen collection (procedure) (no date) [facility] (missing) (missing) (missing) Result panel 554 Specimen collection (procedure) (no date) [facility] (missing) (missing) (missing) Result panel 555 Specimen collection (procedure) (no date) [facility] (missing) (missing) (missing) Result panel 556 Specimen collection (procedure) (no date) [facility] (missing) (missing) (missing) Result panel 557 Specimen collection (procedure) (no date) [facility] (missing) (missing) (missing) Result panel 558 Specimen collection (procedure) (no date) [facility] (missing) (missing) (missing) Result panel 559 Specimen collection (procedure) (no date) [facility] (missing) (missing) (missing) Result panel 560 Specimen collection (procedure) (no date) [facility] (missing) (missing) (missing) Result panel 561 Specimen collection (procedure) (no date) [facility] (missing) (missing) (missing) Result panel 562 Specimen collection (procedure) (no date) [facility] (missing) (missing) (missing) Result panel 563 Specimen collection (procedure) (no date) [facility] (missing) (missing) (missing) Result panel 564 Specimen collection (procedure) (no date) [facility] (missing) (missing) (missing) Result panel 565 Specimen collection (procedure) (no date) [facility] (missing) (missing) (missing) Result panel 566 Specimen collection (procedure) (no date) [facility] (missing) (missing) (missing) Result panel 567 Specimen collection (procedure) (no date) [facility] (missing) (missing) (missing) Result panel 568 Specimen collection (procedure) (no date) [facility] (missing) (missing) (missing) Result panel 569 Specimen collection (procedure) (no date) [facility] (missing) (missing) (missing) Result panel 570 Specimen collection (procedure) (no date) [facility] (missing) (missing) (missing) Result panel 571 Specimen collection (procedure) (no date) [facility] (missing) (missing) (missing) Result panel 572 Specimen collection (procedure) (no date) [facility] (missing) (missing) (missing) Result panel 573 Specimen collection (procedure) (no date) [facility] (missing) (missing) (missing) Result panel 574 Specimen collection (procedure) (no date) [facility] (missing) (missing) (missing) Result panel 575 Specimen collection (procedure) (no date) [facility] (missing) (missing) (missing) Result panel 576 Specimen collection (procedure) (no date) [facility] (missing) (missing) (missing) Result panel 577 Specimen collection (procedure) (no date) [facility] (missing) (missing) (missing) Result panel 578 Specimen collection (procedure) (no date) [facility] (missing) (missing) (missing) Result panel 579 Specimen collection (procedure) (no date) [facility] (missing) (missing) (missing) Result panel 580 Specimen collection (procedure) (no date) [facility] (missing) (missing) (missing) Result panel 581 Specimen collection (procedure) (no date) [facility] (missing) (missing) (missing) Result panel 582 Specimen collection (procedure) (no date) [facility] (missing) (missing) (missing) Result panel 583 Specimen collection (procedure) (no date) [facility] (missing) (missing) (missing) Result panel 584 Specimen collection (procedure) (no date) [facility] (missing) (missing) (missing) Result panel 585 Specimen collection (procedure) (no date) [facility] (missing) (missing) (missing) Result panel 586 Specimen collection (procedure) (no date) [facility] (missing) (missing) (missing) Result panel 587 Specimen collection (procedure) (no date) [facility] (missing) (missing) (missing) Result panel 588 Specimen collection (procedure) (no date) [facility] (missing) (missing) (missing) Result panel 589 Specimen collection (procedure) (no date) [facility] (missing) (missing) (missing) Result panel 590 Specimen collection (procedure) (no date) [facility] (missing) (missing) (missing) Result panel 591 Specimen collection (procedure) (no date) [facility] (missing) (missing) (missing) Result panel 592 Specimen collection (procedure) (no date) [facility] (missing) (missing) (missing) Result panel 593 Specimen collection (procedure) (no date) [facility] (missing) (missing) (missing) Result panel 594 Specimen collection (procedure) (no date) [facility] (missing) (missing) (missing) Result panel 595 Specimen collection (procedure) (no date) [facility] (missing) (missing) (missing) Result panel 596 Specimen collection (procedure) (no date) [facility] (missing) (missing) (missing) Result panel 597 Specimen collection (procedure) (no date) [facility] (missing) (missing) (missing) Result panel 598 Specimen collection (procedure) (no date) [facility] (missing) (missing) (missing) Result panel 599 Specimen collection (procedure) (no date) [facility] (missing) (missing) (missing) Result panel 600 Specimen collection (procedure) (no date) [facility] (missing) (missing) (missing) Result panel 601 Specimen collection (procedure) (no date) [facility] (missing) (missing) (missing) Result panel 602 Specimen collection (procedure) (no date) [facility] (missing) (missing) (missing) Result panel 603 Specimen collection (procedure) (no date) [facility] (missing) (missing) (missing) Result panel 604 Specimen collection (procedure) (no date) [facility] (missing) (missing) (missing) Result panel 605 Specimen collection (procedure) (no date) [facility] (missing) (missing) (missing) Result panel 606 Specimen collection (procedure) (no date) [facility] (missing) (missing) (missing) Result panel 607 Specimen collection (procedure) (no date) [facility] (missing) (missing) (missing) Result panel 608 Specimen collection (procedure) (no date) [facility] (missing) (missing) (missing) Result panel 609 Specimen collection (procedure) (no date) [facility] (missing) (missing) (missing) Result panel 610 Specimen collection (procedure) (no date) [facility] (missing) (missing) (missing) Result panel 611 Specimen collection (procedure) (no date) [facility] (missing) (missing) (missing) Result panel 612 Specimen collection (procedure) (no date) [facility] (missing) (missing) (missing) Result panel 613 Specimen collection (procedure) (no date) [facility] (missing) (missing) (missing) Result panel 614 Specimen collection (procedure) (no date) [facility] (missing) (missing) (missing) Result panel 615 Specimen collection (procedure) (no date) [facility] (missing) (missing) (missing) Result panel 616 Specimen collection (procedure) (no date) [facility] (missing) (missing) (missing) Result panel 617 Specimen collection (procedure) (no date) [facility] (missing) (missing) (missing) Result panel 618 Specimen collection (procedure) (no date) [facility] (missing) (missing) (missing) Result panel 619 Specimen collection (procedure) (no date) [facility] (missing) (missing) (missing) Result panel 620 Specimen collection (procedure) (no date) [facility] (missing) (missing) (missing) Result panel 621 Specimen collection (procedure) (no date) [facility] (missing) (missing) (missing) Result panel 622 Specimen collection (procedure) (no date) [facility] (missing) (missing) (missing) Result panel 623 Specimen collection (procedure) (no date) [facility] (missing) (missing) (missing) Result panel 624 Specimen collection (procedure) (no date) [facility] (missing) (missing) (missing) Result panel 625 Specimen collection (procedure) (no date) [facility] (missing) (missing) (missing) Result panel 626 Specimen collection (procedure) (no date) [facility] (missing) (missing) (missing) Result panel 627 Specimen collection (procedure) (no date) [facility] (missing) (missing) (missing) Result panel 628 Specimen collection (procedure) (no date) [facility] (missing) (missing) (missing) Result panel 629 Specimen collection (procedure) (no date) [facility] (missing) (missing) (missing) Result panel 630 Specimen collection (procedure) (no date) [facility] (missing) (missing) (missing) Result panel 631 Specimen collection (procedure) (no date) [facility] (missing) (missing) (missing) Result panel 632 Specimen collection (procedure) (no date) [facility] (missing) (missing) (missing) Result panel 633 Specimen collection (procedure) (no date) [facility] (missing) (missing) (missing) Result panel 634 Specimen collection (procedure) (no date) [facility] (missing) (missing) (missing) Result panel 635 Specimen collection (procedure) (no date) [facility] (missing) (missing) (missing) Result panel 636 Specimen collection (procedure) (no date) [facility] (missing) (missing) (missing) Result panel 637 Specimen collection (procedure) (no date) [facility] (missing) (missing) (missing) Result panel 638 Specimen collection (procedure) (no date) [facility] (missing) (missing) (missing) Result panel 639 Specimen collection (procedure) (no date) [facility] (missing) (missing) (missing) Result panel 640 Specimen collection (procedure) (no date) [facility] (missing) (missing) (missing) Result panel 641 Specimen collection (procedure) (no date) [facility] (missing) (missing) (missing) Result panel 642 Specimen collection (procedure) (no date) [facility] (missing) (missing) (missing) Result panel 643 Specimen collection (procedure) (no date) [facility] (missing) (missing) (missing) Result panel 644 Specimen collection (procedure) (no date) [facility] (missing) (missing) (missing) Result panel 645 Specimen collection (procedure) (no date) [facility] (missing) (missing) (missing) Result panel 646 Specimen collection (procedure) (no date) [facility] (missing) (missing) (missing) Result panel 647 Specimen collection (procedure) (no date) [facility] (missing) (missing) (missing) Result panel 648 Specimen collection (procedure) (no date) [facility] (missing) (missing) (missing) Result panel 649 Specimen collection (procedure) (no date) [facility] (missing) (missing) (missing) Result panel 650 Specimen collection (procedure) (no date) [facility] (missing) (missing) (missing) Result panel 651 Specimen collection (procedure) (no date) [facility] (missing) (missing) (missing) Result panel 652 Specimen collection (procedure) (no date) [facility] (missing) (missing) (missing) Result panel 653 Specimen collection (procedure) (no date) [facility] (missing) (missing) (missing) Result panel 654 Specimen collection (procedure) (no date) [facility] (missing) (missing) (missing) Result panel 655 Specimen collection (procedure) (no date) [facility] (missing) (missing) (missing) Result panel 656 Specimen collection (procedure) (no date) [facility] (missing) (missing) (missing) Result panel 657 Specimen collection (procedure) (no date) [facility] (missing) (missing) (missing) Result panel 658 Specimen collection (procedure) (no date) [facility] (missing) (missing) (missing) Result panel 659 Specimen collection (procedure) (no date) [facility] (missing) (missing) (missing) Result panel 660 Specimen collection (procedure) (no date) [facility] (missing) (missing) (missing) Result panel 661 Specimen collection (procedure) (no date) [facility] (missing) (missing) (missing) Result panel 662 Specimen collection (procedure) (no date) [facility] (missing) (missing) (missing) Result panel 663 Specimen collection (procedure) (no date) [facility] (missing) (missing) (missing) Result panel 664 Specimen collection (procedure) (no date) [facility] (missing) (missing) (missing) Result panel 665 Specimen collection (procedure) (no date) [facility] (missing) (missing) (missing) Result panel 666 Specimen collection (procedure) (no date) [facility] (missing) (missing) (missing) Result panel 667 Specimen collection (procedure) (no date) [facility] (missing) (missing) (missing) Result panel 668 Specimen collection (procedure) (no date) [facility] (missing) (missing) (missing) Result panel 669 Specimen collection (procedure) (no date) [facility] (missing) (missing) (missing) Result panel 670 Specimen collection (procedure) (no date) [facility] (missing) (missing) (missing) Result panel 671 Specimen collection (procedure) (no date) [facility] (missing) (missing) (missing) Result panel 672 Specimen collection (procedure) (no date) [facility] (missing) (missing) (missing) Result panel 673 Specimen collection (procedure) (no date) [facility] (missing) (missing) (missing) Result panel 674 Specimen collection (procedure) (no date) [facility] (missing) (missing) (missing) Result panel 675 Specimen collection (procedure) (no date) [facility] (missing) (missing) (missing) Result panel 676 Specimen collection (procedure) (no date) [facility] (missing) (missing) (missing) Result panel 677 Specimen collection (procedure) (no date) [facility] (missing) (missing) (missing) Result panel 678 Specimen collection (procedure) (no date) [facility] (missing) (missing) (missing) Result panel 679 Specimen collection (procedure) (no date) [facility] (missing) (missing) (missing) Result panel 680 Specimen collection (procedure) (no date) [facility] (missing) (missing) (missing) Result panel 681 Specimen collection (procedure) (no date) [facility] (missing) (missing) (missing) Result panel 682 Specimen collection (procedure) (no date) [facility] (missing) (missing) (missing) Result panel 683 Specimen collection (procedure) (no date) [facility] (missing) (missing) (missing) Result panel 684 Specimen collection (procedure) (no date) [facility] (missing) (missing) (missing) Result panel 685 Specimen collection (procedure) (no date) [facility] (missing) (missing) (missing) Result panel 686 Specimen collection (procedure) (no date) [facility] (missing) (missing) (missing) Result panel 687 Specimen collection (procedure) (no date) [facility] (missing) (missing) (missing) Result panel 688 Specimen collection (procedure) (no date) [facility] (missing) (missing) (missing) Result panel 689 Specimen collection (procedure) (no date) [facility] (missing) (missing) (missing) Result panel 690 Specimen collection (procedure) (no date) [facility] (missing) (missing) (missing) Result panel 691 Specimen collection (procedure) (no date) [facility] (missing) (missing) (missing) Result panel 692 Specimen collection (procedure) (no date) [facility] (missing) (missing) (missing) Result panel 693 Specimen collection (procedure) (no date) [facility] (missing) (missing) (missing) Result panel 694 Specimen collection (procedure) (no date) [facility] (missing) (missing) (missing) Result panel 695 Specimen collection (procedure) (no date) [facility] (missing) (missing) (missing) Result panel 696 Specimen collection (procedure) (no date) [facility] (missing) (missing) (missing) Result panel 697 Specimen collection (procedure) (no date) [facility] (missing) (missing) (missing) Result panel 698 Specimen collection (procedure) (no date) [facility] (missing) (missing) (missing) Result panel 699 Specimen collection (procedure) (no date) [facility] (missing) (missing) (missing) Result panel 700 Specimen collection (procedure) (no date) [facility] (missing) (missing) (missing) Result panel 701 Specimen collection (procedure) (no date) [facility] (missing) (missing) (missing) Result panel 702 Specimen collection (procedure) (no date) [facility] (missing) (missing) (missing) Result panel 703 Specimen collection (procedure) (no date) [facility] (missing) (missing) (missing) Result panel 704 Specimen collection (procedure) (no date) [facility] (missing) (missing) (missing) Result panel 705 Specimen collection (procedure) (no date) [facility] (missing) (missing) (missing) Result panel 706 Specimen collection (procedure) (no date) [facility] (missing) (missing) (missing) Result panel 707 Specimen collection (procedure) (no date) [facility] (missing) (missing) (missing) Result panel 708 Specimen collection (procedure) (no date) [facility] (missing) (missing) (missing) Result panel 709 Specimen collection (procedure) (no date) [facility] (missing) (missing) (missing) Result panel 710 Specimen collection (procedure) (no date) [facility] (missing) (missing) (missing) Result panel 711 Specimen collection (procedure) (no date) [facility] (missing) (missing) (missing) Result panel 712 Specimen collection (procedure) (no date) [facility] (missing) (missing) (missing) Result panel 713 Specimen collection (procedure) (no date) [facility] (missing) (missing) (missing) Result panel 714 Specimen collection (procedure) (no date) [facility] (missing) (missing) (missing) Result panel 715 Specimen collection (procedure) (no date) [facility] (missing) (missing) (missing) Result panel 716 Specimen collection (procedure) (no date) [facility] (missing) (missing) (missing) Result panel 717 Specimen collection (procedure) (no date) [facility] (missing) (missing) (missing) Result panel 718 Specimen collection (procedure) (no date) [facility] (missing) (missing) (missing) Result panel 719 Specimen collection (procedure) (no date) [facility] (missing) (missing) (missing) Result panel 720 Specimen collection (procedure) (no date) [facility] (missing) (missing) (missing) Result panel 721 Specimen collection (procedure) (no date) [facility] (missing) (missing) (missing) Result panel 722 Specimen collection (procedure) (no date) [facility] (missing) (missing) (missing) Result panel 723 Specimen collection (procedure) (no date) [facility] (missing) (missing) (missing) Result panel 724 Specimen collection (procedure) (no date) [facility] (missing) (missing) (missing) Result panel 725 Specimen collection (procedure) (no date) [facility] (missing) (missing) (missing) Result panel 726 Specimen collection (procedure) (no date) [facility] (missing) (missing) (missing) Result panel 727 Specimen collection (procedure) (no date) [facility] (missing) (missing) (missing) Result panel 728 Specimen collection (procedure) (no date) [facility] (missing) (missing) (missing) Result panel 729 Specimen collection (procedure) (no date) [facility] (missing) (missing) (missing) Result panel 730 Specimen collection (procedure) (no date) [facility] (missing) (missing) (missing) Result panel 731 Specimen collection (procedure) (no date) [facility] (missing) (missing) (missing) Result panel 732 Specimen collection (procedure) (no date) [facility] (missing) (missing) (missing) Result panel 733 Specimen collection (procedure) (no date) [facility] (missing) (missing) (missing) Result panel 734 Specimen collection (procedure) (no date) [facility] (missing) (missing) (missing) Result panel 735 Specimen collection (procedure) (no date) [facility] (missing) (missing) (missing) Result panel 736 Specimen collection (procedure) (no date) [facility] (missing) (missing) (missing) Result panel 737 Specimen collection (procedure) (no date) [facility] (missing) (missing) (missing) Result panel 738 Specimen collection (procedure) (no date) [facility] (missing) (missing) (missing) Result panel 739 Specimen collection (procedure) (no date) [facility] (missing) (missing) (missing) Result panel 740 Specimen collection (procedure) (no date) [facility] (missing) (missing) (missing) Result panel 741 Specimen collection (procedure) (no date) [facility] (missing) (missing) (missing) Result panel 742 Specimen collection (procedure) (no date) [facility] (missing) (missing) (missing) Result panel 743 Specimen collection (procedure) (no date) [facility] (missing) (missing) (missing) Result panel 744 Specimen collection (procedure) (no date) [facility] (missing) (missing) (missing) Result panel 745 Specimen collection (procedure) (no date) [facility] (missing) (missing) (missing) Result panel 746 Specimen collection (procedure) (no date) [facility] (missing) (missing) (missing) Result panel 747 Specimen collection (procedure) (no date) [facility] (missing) (missing) (missing) Result panel 748 Specimen collection (procedure) (no date) [facility] (missing) (missing) (missing) Result panel 749 Specimen collection (procedure) (no date) [facility] (missing) (missing) (missing) Result panel 750 Specimen collection (procedure) (no date) [facility] (missing) (missing) (missing) Result panel 751 Specimen collection (procedure) (no date) [facility] (missing) (missing) (missing) Result panel 752 Specimen collection (procedure) (no date) [facility] (missing) (missing) (missing) Result panel 753 Specimen collection (procedure) (no date) [facility] (missing) (missing) (missing) Result panel 754 Specimen collection (procedure) (no date) [facility] (missing) (missing) (missing) Result panel 755 Specimen collection (procedure) (no date) [facility] (missing) (missing) (missing) Result panel 756 Specimen collection (procedure) (no date) [facility] (missing) (missing) (missing) Result panel 757 Specimen collection (procedure) (no date) [facility] (missing) (missing) (missing) Result panel 758 Specimen collection (procedure) (no date) [facility] (missing) (missing) (missing) Result panel 759 Specimen collection (procedure) (no date) [facility] (missing) (missing) (missing) Result panel 760 Specimen collection (procedure) (no date) [facility] (missing) (missing) (missing) Result panel 761 Specimen collection (procedure) (no date) [facility] (missing) (missing) (missing) Result panel 762 Specimen collection (procedure) (no date) [facility] (missing) (missing) (missing) Result panel 763 Specimen collection (procedure) (no date) [facility] (missing) (missing) (missing) Result panel 764 Specimen collection (procedure) (no date) [facility] (missing) (missing) (missing) Result panel 765 Specimen collection (procedure) (no date) [facility] (missing) (missing) (missing) Result panel 766 Specimen collection (procedure) (no date) [facility] (missing) (missing) (missing) Result panel 767 Specimen collection (procedure) (no date) [facility] (missing) (missing) (missing) Result panel 768 Specimen collection (procedure) (no date) [facility] (missing) (missing) (missing) Result panel 769 Specimen collection (procedure) (no date) [facility] (missing) (missing) (missing) Result panel 770 Specimen collection (procedure) (no date) [facility] (missing) (missing) (missing) Result panel 771 Specimen collection (procedure) (no date) [facility] (missing) (missing) (missing) Result panel 772 Specimen collection (procedure) (no date) [facility] (missing) (missing) (missing) Result panel 773 Specimen collection (procedure) (no date) [facility] (missing) (missing) (missing) Result panel 774 Specimen collection (procedure) (no date) [facility] (missing) (missing) (missing) Result panel 775 Specimen collection (procedure) (no date) [facility] (missing) (missing) (missing) Result panel 776 Specimen collection (procedure) (no date) [facility] (missing) (missing) (missing) Result panel 777 Specimen collection (procedure) (no date) [facility] (missing) (missing) (missing) Result panel 778 Specimen collection (procedure) (no date) [facility] (missing) (missing) (missing) Result panel 779 Specimen collection (procedure) (no date) [facility] (missing) (missing) (missing) Result panel 780 Specimen collection (procedure) (no date) [facility] (missing) (missing) (missing) Result panel 781 Specimen collection (procedure) (no date) [facility] (missing) (missing) (missing) Result panel 782 Specimen collection (procedure) (no date) [facility] (missing) (missing) (missing) Result panel 783 Specimen collection (procedure) (no date) [facility] (missing) (missing) (missing) Result panel 784 Specimen collection (procedure) (no date) [facility] (missing) (missing) (missing) Result panel 785 Specimen collection (procedure) (no date) [facility] (missing) (missing) (missing) Result panel 786 Specimen collection (procedure) (no date) [facility] (missing) (missing) (missing) Result panel 787 Specimen collection (procedure) (no date) [facility] (missing) (missing) (missing) Result panel 788 Specimen collection (procedure) (no date) [facility] (missing) (missing) (missing) Result panel 789 Specimen collection (procedure) (no date) [facility] (missing) (missing) (missing) Result panel 790 Specimen collection (procedure) (no date) [facility] (missing) (missing) (missing) Result panel 791 Specimen collection (procedure) (no date) [facility] (missing) (missing) (missing) Result panel 792 Specimen collection (procedure) (no date) [facility] (missing) (missing) (missing) Result panel 793 Specimen collection (procedure) (no date) [facility] (missing) (missing) (missing) Result panel 794 Specimen collection (procedure) (no date) [facility] (missing) (missing) (missing) Result panel 795 Specimen collection (procedure) (no date) [facility] (missing) (missing) (missing) Result panel 796 Specimen collection (procedure) (no date) [facility] (missing) (missing) (missing) Result panel 797 Specimen collection (procedure) (no date) [facility] (missing) (missing) (missing) Result panel 798 Specimen collection (procedure) (no date) [facility] (missing) (missing) (missing) Result panel 799 Specimen collection (procedure) (no date) [facility] (missing) (missing) (missing) Result panel 800 Specimen collection (procedure) (no date) [facility] (missing) (missing) (missing) Result panel 801 Specimen collection (procedure) (no date) [facility] (missing) (missing) (missing) Result panel 802 Specimen collection (procedure) (no date) [facility] (missing) (missing) (missing) Result panel 803 Specimen collection (procedure) (no date) [facility] (missing) (missing) (missing) Result panel 804 Specimen collection (procedure) (no date) [facility] (missing) (missing) (missing) Result panel 805 Specimen collection (procedure) (no date) [facility] (missing) (missing) (missing) Result panel 806 Specimen collection (procedure) (no date) [facility] (missing) (missing) (missing) Result panel 807 Specimen collection (procedure) (no date) [facility] (missing) (missing) (missing) Result panel 808 Specimen collection (procedure) (no date) [facility] (missing) (missing) (missing) Result panel 809 Specimen collection (procedure) (no date) [facility] (missing) (missing) (missing) Result panel 810 Specimen collection (procedure) (no date) [facility] (missing) (missing) (missing) Result panel 811 Specimen collection (procedure) (no date) [facility] (missing) (missing) (missing) Result panel 812 Specimen collection (procedure) (no date) [facility] (missing) (missing) (missing) Result panel 813 Specimen collection (procedure) (no date) [facility] (missing) (missing) (missing) Result panel 814 Specimen collection (procedure) (no date) [facility] (missing) (missing) (missing) Result panel 815 Specimen collection (procedure) (no date) [facility] (missing) (missing) (missing) Result panel 816 Specimen collection (procedure) (no date) [facility] (missing) (missing) (missing) Result panel 817 Specimen collection (procedure) (no date) [facility] (missing) (missing) (missing) Result panel 818 Specimen collection (procedure) (no date) [facility] (missing) (missing) (missing) Result panel 819 Specimen collection (procedure) (no date) [facility] (missing) (missing) (missing) Result panel 820 Specimen collection (procedure) (no date) [facility] (missing) (missing) (missing) Result panel 821 Specimen collection (procedure) (no date) [facility] (missing) (missing) (missing) Result panel 822 Specimen collection (procedure) (no date) [facility] (missing) (missing) (missing) Result panel 823 Specimen collection (procedure) (no date) [facility] (missing) (missing) (missing) Result panel 824 Specimen collection (procedure) (no date) [facility] (missing) (missing) (missing) Result panel 825 Specimen collection (procedure) (no date) [facility] (missing) (missing) (missing) Result panel 826 Specimen collection (procedure) (no date) [facility] (missing) (missing) (missing) Result panel 827 Specimen collection (procedure) (no date) [facility] (missing) (missing) (missing) Result panel 828 Specimen collection (procedure) (no date) [facility] (missing) (missing) (missing) Result panel 829 Specimen collection (procedure) (no date) [facility] (missing) (missing) (missing) Result panel 830 Specimen collection (procedure) (no date) [facility] (missing) (missing) (missing) Result panel 831 Specimen collection (procedure) (no date) [facility] (missing) (missing) (missing) Result panel 832 Specimen collection (procedure) (no date) [facility] (missing) (missing) (missing) Result panel 833 Specimen collection (procedure) (no date) [facility] (missing) (missing) (missing) Result panel 834 Specimen collection (procedure) (no date) [facility] (missing) (missing) (missing) Result panel 835 Specimen collection (procedure) (no date) [facility] (missing) (missing) (missing) Result panel 836 Specimen collection (procedure) (no date) [facility] (missing) (missing) (missing) Result panel 837 Specimen collection (procedure) (no date) [facility] (missing) (missing) (missing) Result panel 838 Specimen collection (procedure) (no date) [facility] (missing) (missing) (missing) Result panel 839 Specimen collection (procedure) (no date) [facility] (missing) (missing) (missing) Result panel 840 Specimen collection (procedure) (no date) [facility] (missing) (missing) (missing) Result panel 841 Specimen collection (procedure) (no date) [facility] (missing) (missing) (missing) Result panel 842 Specimen collection (procedure) (no date) [facility] (missing) (missing) (missing) Result panel 843 Specimen collection (procedure) (no date) [facility] (missing) (missing) (missing) Result panel 844 Specimen collection (procedure) (no date) [facility] (missing) (missing) (missing) Result panel 845 Specimen collection (procedure) (no date) [facility] (missing) (missing) (missing) Result panel 846 Specimen collection (procedure) (no date) [facility] (missing) (missing) (missing) Result panel 847 Specimen collection (procedure) (no date) [facility] (missing) (missing) (missing) Result panel 848 Specimen collection (procedure) (no date) [facility] (missing) (missing) (missing) Result panel 849 Specimen collection (procedure) (no date) [facility] (missing) (missing) (missing) Result panel 850 Specimen collection (procedure) (no date) [facility] (missing) (missing) (missing) Result panel 851 Specimen collection (procedure) (no date) [facility] (missing) (missing) (missing) Result panel 852 Specimen collection (procedure) (no date) [facility] (missing) (missing) (missing) Result panel 853 Specimen collection (procedure) (no date) [facility] (missing) (missing) (missing) Result panel 854 Specimen collection (procedure) (no date) [facility] (missing) (missing) (missing) Result panel 855 Specimen collection (procedure) (no date) [facility] (missing) (missing) (missing) Result panel 856 Specimen collection (procedure) (no date) [facility] (missing) (missing) (missing) Result panel 857 Specimen collection (procedure) (no date) [facility] (missing) (missing) (missing) Result panel 858 Specimen collection (procedure) (no date) [facility] (missing) (missing) (missing) Result panel 859 Specimen collection (procedure) (no date) [facility] (missing) (missing) (missing) Result panel 860 Specimen collection (procedure) (no date) [facility] (missing) (missing) (missing) Result panel 861 Specimen collection (procedure) (no date) [facility] (missing) (missing) (missing) Result panel 862 Specimen collection (procedure) (no date) [facility] (missing) (missing) (missing) Result panel 863 Specimen collection (procedure) (no date) [facility] (missing) (missing) (missing) Result panel 864 Specimen collection (procedure) (no date) [facility] (missing) (missing) (missing) Result panel 865 Specimen collection (procedure) (no date) [facility] (missing) (missing) (missing) Result panel 866 Specimen collection (procedure) (no date) [facility] (missing) (missing) (missing) Result panel 867 Specimen collection (procedure) (no date) [facility] (missing) (missing) (missing) Result panel 868 Specimen collection (procedure) (no date) [facility] (missing) (missing) (missing) Result panel 869 Specimen collection (procedure) (no date) [facility] (missing) (missing) (missing) Result panel 870 Specimen collection (procedure) (no date) [facility] (missing) (missing) (missing) Result panel 871 Specimen collection (procedure) (no date) [facility] (missing) (missing) (missing) Result panel 872 Specimen collection (procedure) (no date) [facility] (missing) (missing) (missing) Result panel 873 Specimen collection (procedure) (no date) [facility] (missing) (missing) (missing) Result panel 874 Specimen collection (procedure) (no date) [facility] (missing) (missing) (missing) Result panel 875 Specimen collection (procedure) (no date) [facility] (missing) (missing) (missing) Result panel 876 Specimen collection (procedure) (no date) [facility] (missing) (missing) (missing) Result panel 877 Specimen collection (procedure) (no date) [facility] (missing) (missing) (missing) Result panel 878 Specimen collection (procedure) (no date) [facility] (missing) (missing) (missing) Result panel 879 Specimen collection (procedure) (no date) [facility] (missing) (missing) (missing) Result panel 880 Specimen collection (procedure) (no date) [facility] (missing) (missing) (missing) Result panel 881 Specimen collection (procedure) (no date) [facility] (missing) (missing) (missing) Result panel 882 Specimen collection (procedure) (no date) [facility] (missing) (missing) (missing) Result panel 883 Specimen collection (procedure) (no date) [facility] (missing) (missing) (missing) Result panel 884 Specimen collection (procedure) (no date) [facility] (missing) (missing) (missing) Result panel 885 Specimen collection (procedure) (no date) [facility] (missing) (missing) (missing) Result panel 886 Specimen collection (procedure) (no date) [facility] (missing) (missing) (missing) Result panel 887 Specimen collection (procedure) (no date) [facility] (missing) (missing) (missing) Result panel 888 Specimen collection (procedure) (no date) [facility] (missing) (missing) (missing) Result panel 889 Specimen collection (procedure) (no date) [facility] (missing) (missing) (missing) Result panel 890 Specimen collection (procedure) (no date) [facility] (missing) (missing) (missing) Result panel 891 Specimen collection (procedure) (no date) [facility] (missing) (missing) (missing) Result panel 892 Specimen collection (procedure) (no date) [facility] (missing) (missing) (missing) Result panel 893 Specimen collection (procedure) (no date) [facility] (missing) (missing) (missing) Result panel 894 Specimen collection (procedure) (no date) [facility] (missing) (missing) (missing) Result panel 895 Specimen collection (procedure) (no date) [facility] (missing) (missing) (missing) Result panel 896 Specimen collection (procedure) (no date) [facility] (missing) (missing) (missing) Result panel 897 Specimen collection (procedure) (no date) [facility] (missing) (missing) (missing) Result panel 898 Specimen collection (procedure) (no date) [facility] (missing) (missing) (missing) Result panel 899 Specimen collection (procedure) (no date) [facility] (missing) (missing) (missing) Result panel 900 Specimen collection (procedure) (no date) [facility] (missing) (missing) (missing) Result panel 901 Specimen collection (procedure) (no date) [facility] (missing) (missing) (missing) Result panel 902 Specimen collection (procedure) (no date) [facility] (missing) (missing) (missing) Result panel 903 Specimen collection (procedure) (no date) [facility] (missing) (missing) (missing) Result panel 904 Specimen collection (procedure) (no date) [facility] (missing) (missing) (missing) Result panel 905 Specimen collection (procedure) (no date) [facility] (missing) (missing) (missing) Result panel 906 Specimen collection (procedure) (no date) [facility] (missing) (missing) (missing) Result panel 907 Specimen collection (procedure) (no date) [facility] (missing) (missing) (missing) Result panel 908 Specimen collection (procedure) (no date) [facility] (missing) (missing) (missing) Result panel 909 Specimen collection (procedure) (no date) [facility] (missing) (missing) (missing) Result panel 910 Specimen collection (procedure) (no date) [facility] (missing) (missing) (missing) Result panel 911 Specimen collection (procedure) (no date) [facility] (missing) (missing) (missing) Result panel 912 Specimen collection (procedure) (no date) [facility] (missing) (missing) (missing) Result panel 913 Specimen collection (procedure) (no date) [facility] (missing) (missing) (missing) Result panel 914 Specimen collection (procedure) (no date) [facility] (missing) (missing) (missing) Result panel 915 Specimen collection (procedure) (no date) [facility] (missing) (missing) (missing) Result panel 916 Specimen collection (procedure) (no date) [facility] (missing) (missing) (missing) Result panel 917 Specimen collection (procedure) (no date) [facility] (missing) (missing) (missing) Result panel 918 Specimen collection (procedure) (no date) [facility] (missing) (missing) (missing) Result panel 919 Specimen collection (procedure) (no date) [facility] (missing) (missing) (missing) Result panel 920 Specimen collection (procedure) (no date) [facility] (missing) (missing) (missing) Result panel 921 Specimen collection (procedure) (no date) [facility] (missing) (missing) (missing) Result panel 922 Specimen collection (procedure) (no date) [facility] (missing) (missing) (missing) Result panel 923 Specimen collection (procedure) (no date) [facility] (missing) (missing) (missing) Result panel 924 Specimen collection (procedure) (no date) [facility] (missing) (missing) (missing) Result panel 925 Specimen collection (procedure) (no date) [facility] (missing) (missing) (missing) Result panel 926 Specimen collection (procedure) (no date) [facility] (missing) (missing) (missing) Result panel 927 Specimen collection (procedure) (no date) [facility] (missing) (missing) (missing) Result panel 928 Specimen collection (procedure) (no date) [facility] (missing) (missing) (missing) Result panel 929 Specimen collection (procedure) (no date) [facility] (missing) (missing) (missing) Result panel 930 Specimen collection (procedure) (no date) [facility] (missing) (missing) (missing) Result panel 931 Specimen collection (procedure) (no date) [facility] (missing) (missing) (missing) Result panel 932 Specimen collection (procedure) (no date) [facility] (missing) (missing) (missing) Result panel 933 Specimen collection (procedure) (no date) [facility] (missing) (missing) (missing) Result panel 934 Specimen collection (procedure) (no date) [facility] (missing) (missing) (missing) Result panel 935 Specimen collection (procedure) (no date) [facility] (missing) (missing) (missing) Result panel 936 Specimen collection (procedure) (no date) [facility] (missing) (missing) (missing) Result panel 937 Specimen collection (procedure) (no date) [facility] (missing) (missing) (missing) Result panel 938 Specimen collection (procedure) (no date) [facility] (missing) (missing) (missing) Result panel 939 Specimen collection (procedure) (no date) [facility] (missing) (missing) (missing) Result panel 940 Specimen collection (procedure) (no date) [facility] (missing) (missing) (missing) Result panel 941 Specimen collection (procedure) (no date) [facility] (missing) (missing) (missing) Result panel 942 Specimen collection (procedure) (no date) [facility] (missing) (missing) (missing) Result panel 943 Specimen collection (procedure) (no date) [facility] (missing) (missing) (missing) Result panel 944 Specimen collection (procedure) (no date) [facility] (missing) (missing) (missing) Result panel 945 Specimen collection (procedure) (no date) [facility] (missing) (missing) (missing) Result panel 946 Specimen collection (procedure) (no date) [facility] (missing) (missing) (missing) Result panel 947 Specimen collection (procedure) (no date) [facility] (missing) (missing) (missing) Result panel 948 Specimen collection (procedure) (no date) [facility] (missing) (missing) (missing) Result panel 949 Specimen collection (procedure) (no date) [facility] (missing) (missing) (missing) Result panel 950 Specimen collection (procedure) (no date) [facility] (missing) (missing) (missing) Result panel 951 Specimen collection (procedure) (no date) [facility] (missing) (missing) (missing) Result panel 952 Specimen collection (procedure) (no date) [facility] (missing) (missing) (missing) Result panel 953 Specimen collection (procedure) (no date) [facility] (missing) (missing) (missing) Result panel 954 Specimen collection (procedure) (no date) [facility] (missing) (missing) (missing) Result panel 955 Specimen collection (procedure) (no date) [facility] (missing) (missing) (missing) Result panel 956 Specimen collection (procedure) (no date) [facility] (missing) (missing) (missing) Result panel 957 Specimen collection (procedure) (no date) [facility] (missing) (missing) (missing) Result panel 958 Specimen collection (procedure) (no date) [facility] (missing) (missing) (missing) Result panel 959 Specimen collection (procedure) (no date) [facility] (missing) (missing) (missing) Result panel 960 Specimen collection (procedure) (no date) [facility] (missing) (missing) (missing) Result panel 961 Specimen collection (procedure) (no date) [facility] (missing) (missing) (missing) Result panel 962 Specimen collection (procedure) (no date) [facility] (missing) (missing) (missing) Result panel 963 Specimen collection (procedure) (no date) [facility] (missing) (missing) (missing) Result panel 964 Specimen collection (procedure) (no date) [facility] (missing) (missing) (missing) Result panel 965 Specimen collection (procedure) (no date) [facility] (missing) (missing) (missing) Result panel 966 Specimen collection (procedure) (no date) [facility] (missing) (missing) (missing) Result panel 967 Specimen collection (procedure) (no date) [facility] (missing) (missing) (missing) Result panel 968 Specimen collection (procedure) (no date) [facility] (missing) (missing) (missing) Result panel 969 Specimen collection (procedure) (no date) [facility] (missing) (missing) (missing) Result panel 970 Specimen collection (procedure) (no date) [facility] (missing) (missing) (missing) Result panel 971 Specimen collection (procedure) (no date) [facility] (missing) (missing) (missing) Result panel 972 Specimen collection (procedure) (no date) [facility] (missing) (missing) (missing) Result panel 973 Specimen collection (procedure) (no date) [facility] (missing) (missing) (missing) Result panel 974 Specimen collection (procedure) (no date) [facility] (missing) (missing) (missing) Result panel 975 Specimen collection (procedure) (no date) [facility] (missing) (missing) (missing) Result panel 976 Specimen collection (procedure) (no date) [facility] (missing) (missing) (missing) Result panel 977 Specimen collection (procedure) (no date) [facility] (missing) (missing) (missing) Result panel 978 Specimen collection (procedure) (no date) [facility] (missing) (missing) (missing) Result panel 979 Specimen collection (procedure) (no date) [facility] (missing) (missing) (missing) Result panel 980 Specimen collection (procedure) (no date) [facility] (missing) (missing) (missing) Result panel 981 Specimen collection (procedure) (no date) [facility] (missing) (missing) (missing) Result panel 982 Specimen collection (procedure) (no date) [facility] (missing) (missing) (missing) Result panel 983 Specimen collection (procedure) (no date) [facility] (missing) (missing) (missing) Result panel 984 Specimen collection (procedure) (no date) [facility] (missing) (missing) (missing) Result panel 985 Specimen collection (procedure) (no date) [facility] (missing) (missing) (missing) Result panel 986 Specimen collection (procedure) (no date) [facility] (missing) (missing) (missing) Result panel 987 Specimen collection (procedure) (no date) [facility] (missing) (missing) (missing) Result panel 988 Specimen collection (procedure) (no date) [facility] (missing) (missing) (missing) Result panel 989 Specimen collection (procedure) (no date) [facility] (missing) (missing) (missing) Result panel 990 Specimen collection (procedure) (no date) [facility] (missing) (missing) (missing) Result panel 991 Specimen collection (procedure) (no date) [facility] (missing) (missing) (missing) Result panel 992 Specimen collection (procedure) (no date) [facility] (missing) (missing) (missing) Result panel 993 Specimen collection (procedure) (no date) [facility] (missing) (missing) (missing) Result panel 994 Specimen collection (procedure) (no date) [facility] (missing) (missing) (missing) Result panel 995 Specimen collection (procedure) (no date) [facility] (missing) (missing) (missing) Result panel 996 Specimen collection (procedure) (no date) [facility] (missing) (missing) (missing) Result panel 997 Specimen collection (procedure) (no date) [facility] (missing) (missing) (missing) Result panel 998 Specimen collection (procedure) (no date) [facility] (missing) (missing) (missing) Result panel 999 Specimen collection (procedure) (no date) [facility] (missing) (missing) (missing) Result panel 1000 Specimen collection (procedure) (no date) [facility] (missing) (missing) (missing) Result panel 1001 Specimen collection (procedure) (no date) [facility] (missing) (missing) (missing) Result panel 1002 Specimen collection (procedure) (no date) [facility] (missing) (missing) (missing) Result panel 1003 Specimen collection (procedure) (no date) [facility] (missing) (missing) (missing) Result panel 1004 Specimen collection (procedure) (no date) [facility] (missing) (missing) (missing) Result panel 1005 Specimen collection (procedure) (no date) [facility] (missing) (missing) (missing) Result panel 1006 Specimen collection (procedure) (no date) [facility] (missing) (missing) (missing) Result panel 1007 Specimen collection (procedure) (no date) [facility] (missing) (missing) (missing) Result panel 1008 Specimen collection (procedure) (no date) [facility] (missing) (missing) (missing) Result panel 1009 Specimen collection (procedure) (no date) [facility] (missing) (missing) (missing) Result panel 1010 Specimen collection (procedure) (no date) [facility] (missing) (missing) (missing) Result panel 1011 Specimen collection (procedure) (no date) [facility] (missing) (missing) (missing) Result panel 1012 Specimen collection (procedure) (no date) [facility] (missing) (missing) (missing) Result panel 1013 Specimen collection (procedure) (no date) [facility] (missing) (missing) (missing) Result panel 1014 Specimen collection (procedure) (no date) [facility] (missing) (missing) (missing) Result panel 1015 Specimen collection (procedure) (no date) [facility] (missing) (missing) (missing) Result panel 1016 Specimen collection (procedure) (no date) [facility] (missing) (missing) (missing) Result panel 1017 Specimen collection (procedure) (no date) [facility] (missing) (missing) (missing) Result panel 1018 Specimen collection (procedure) (no date) [facility] (missing) (missing) (missing) Result panel 1019 Specimen collection (procedure) (no date) [facility] (missing) (missing) (missing) Result panel 1020 Specimen collection (procedure) (no date) [facility] (missing) (missing) (missing) Result panel 1021 Specimen collection (procedure) (no date) [facility] (missing) (missing) (missing) Result panel 1022 Specimen collection (procedure) (no date) [facility] (missing) (missing) (missing) Result panel 1023 Specimen collection (procedure) (no date) [facility] (missing) (missing) (missing) Result panel 1024 Specimen collection (procedure) (no date) [facility] (missing) (missing) (missing) Result panel 1025 Specimen collection (procedure) (no date) [facility] (missing) (missing) (missing) Result panel 1026 Specimen collection (procedure) (no date) [facility] (missing) (missing) (missing) Result panel 1027 Specimen collection (procedure) (no date) [facility] (missing) (missing) (missing) Result panel 1028 Specimen collection (procedure) (no date) [facility] (missing) (missing) (missing) Result panel 1029 Specimen collection (procedure) (no date) [facility] (missing) (missing) (missing) Result panel 1030 Specimen collection (procedure) (no date) [facility] (missing) (missing) (missing) Result panel 1031 Specimen collection (procedure) (no date) [facility] (missing) (missing) (missing) Result panel 1032 Specimen collection (procedure) (no date) [facility] (missing) (missing) (missing) Result panel 1033 Specimen collection (procedure) (no date) [facility] (missing) (missing) (missing) Result panel 1034 Specimen collection (procedure) (no date) [facility] (missing) (missing) (missing) Result panel 1035 Specimen collection (procedure) (no date) [facility] (missing) (missing) (missing) Result panel 1036 Specimen collection (procedure) (no date) [facility] (missing) (missing) (missing) Result panel 1037 Specimen collection (procedure) (no date) [facility] (missing) (missing) (missing) Result panel 1038 Specimen collection (procedure) (no date) [facility] (missing) (missing) (missing) Result panel 1039 Specimen collection (procedure) (no date) [facility] (missing) (missing) (missing) Result panel 1040 Specimen collection (procedure) (no date) [facility] (missing) (missing) (missing) Result panel 1041 Specimen collection (procedure) (no date) [facility] (missing) (missing) (missing) Result panel 1042 Specimen collection (procedure) (no date) [facility] (missing) (missing) (missing) Result panel 1043 Specimen collection (procedure) (no date) [facility] (missing) (missing) (missing) Result panel 1044 Specimen collection (procedure) (no date) [facility] (missing) (missing) (missing) Result panel 1045 Specimen collection (procedure) (no date) [facility] (missing) (missing) (missing) Result panel 1046 Specimen collection (procedure) (no date) [facility] (missing) (missing) (missing) Result panel 1047 Specimen collection (procedure) (no date) [facility] (missing) (missing) (missing) Result panel 1048 Specimen collection (procedure) (no date) [facility] (missing) (missing) (missing) Result panel 1049 Specimen collection (procedure) (no date) [facility] (missing) (missing) (missing) Result panel 1050 Specimen collection (procedure) (no date) [facility] (missing) (missing) (missing) Result panel 1051 Specimen collection (procedure) (no date) [facility] (missing) (missing) (missing) Result panel 1052 Specimen collection (procedure) (no date) [facility] (missing) (missing) (missing) Result panel 1053 Specimen collection (procedure) (no date) [facility] (missing) (missing) (missing) Result panel 1054 Specimen collection (procedure) (no date) [facility] (missing) (missing) (missing) Result panel 1055 Specimen collection (procedure) (no date) [facility] (missing) (missing) (missing) Result panel 1056 Specimen collection (procedure) (no date) [facility] (missing) (missing) (missing) Result panel 1057 Specimen collection (procedure) (no date) [facility] (missing) (missing) (missing) Result panel 1058 Specimen collection (procedure) (no date) [facility] (missing) (missing) (missing) Result panel 1059 Specimen collection (procedure) (no date) [facility] (missing) (missing) (missing) Result panel 1060 Specimen collection (procedure) (no date) [facility] (missing) (missing) (missing) Result panel 1061 Specimen collection (procedure) (no date) [facility] (missing) (missing) (missing) Result panel 1062 Specimen collection (procedure) (no date) [facility] (missing) (missing) (missing) Result panel 1063 Specimen collection (procedure) (no date) [facility] (missing) (missing) (missing) Result panel 1064 Specimen collection (procedure) (no date) [facility] (missing) (missing) (missing) Result panel 1065 Specimen collection (procedure) (no date) [facility] (missing) (missing) (missing) Result panel 1066 Specimen collection (procedure) (no date) [facility] (missing) (missing) (missing) Result panel 1067 Specimen collection (procedure) (no date) [facility] (missing) (missing) (missing) Result panel 1068 Specimen collection (procedure) (no date) [facility] (missing) (missing) (missing) Result panel 1069 Specimen collection (procedure) (no date) [facility] (missing) (missing) (missing) Result panel 1070 Specimen collection (procedure) (no date) [facility] (missing) (missing) (missing) Result panel 1071 Specimen collection (procedure) (no date) [facility] (missing) (missing) (missing) Result panel 1072 Specimen collection (procedure) (no date) [facility] (missing) (missing) (missing) Result panel 1073 Specimen collection (procedure) (no date) [facility] (missing) (missing) (missing) Result panel 1074 Specimen collection (procedure) (no date) [facility] (missing) (missing) (missing) Result panel 1075 Specimen collection (procedure) (no date) [facility] (missing) (missing) (missing) Result panel 1076 Specimen collection (procedure) (no date) [facility] (missing) (missing) (missing) Result panel 1077 Specimen collection (procedure) (no date) [facility] (missing) (missing) (missing) Result panel 1078 Specimen collection (procedure) (no date) [facility] (missing) (missing) (missing) Result panel 1079 Specimen collection (procedure) (no date) [facility] (missing) (missing) (missing) Result panel 1080 Specimen collection (procedure) (no date) [facility] (missing) (missing) (missing) Result panel 1081 Specimen collection (procedure) (no date) [facility] (missing) (missing) (missing) Result panel 1082 Specimen collection (procedure) (no date) [facility] (missing) (missing) (missing) Result panel 1083 Specimen collection (procedure) (no date) [facility] (missing) (missing) (missing) Result panel 1084 Specimen collection (procedure) (no date) [facility] (missing) (missing) (missing) Result panel 1085 Specimen collection (procedure) (no date) [facility] (missing) (missing) (missing) Result panel 1086 Specimen collection (procedure) (no date) [facility] (missing) (missing) (missing) Result panel 1087 Specimen collection (procedure) (no date) [facility] (missing) (missing) (missing) Result panel 1088 Specimen collection (procedure) (no date) [facility] (missing) (missing) (missing) Result panel 1089 Specimen collection (procedure) (no date) [facility] (missing) (missing) (missing) Result panel 1090 Specimen collection (procedure) (no date) [facility] (missing) (missing) (missing) Result panel 1091 Specimen collection (procedure) (no date) [facility] (missing) (missing) (missing) Result panel 1092 Specimen collection (procedure) (no date) [facility] (missing) (missing) (missing) Result panel 1093 Specimen collection (procedure) (no date) [facility] (missing) (missing) (missing) Result panel 1094 Specimen collection (procedure) (no date) [facility] (missing) (missing) (missing) Result panel 1095 Specimen collection (procedure) (no date) [facility] (missing) (missing) (missing) Result panel 1096 Specimen collection (procedure) (no date) [facility] (missing) (missing) (missing) Result panel 1097 Specimen collection (procedure) (no date) [facility] (missing) (missing) (missing) Result panel 1098 Specimen collection (procedure) (no date) [facility] (missing) (missing) (missing) Result panel 1099 Specimen collection (procedure) (no date) [facility] (missing) (missing) (missing) Result panel 1100 Specimen collection (procedure) (no date) [facility] (missing) (missing) (missing) Result panel 1101 Specimen collection (procedure) (no date) [facility] (missing) (missing) (missing) Result panel 1102 Specimen collection (procedure) (no date) [facility] (missing) (missing) (missing) Result panel 1103 Specimen collection (procedure) (no date) [facility] (missing) (missing) (missing) Result panel 1104 Specimen collection (procedure) (no date) [facility] (missing) (missing) (missing) Result panel 1105 Specimen collection (procedure) (no date) [facility] (missing) (missing) (missing) Result panel 1106 Specimen collection (procedure) (no date) [facility] (missing) (missing) (missing) Result panel 1107 Specimen collection (procedure) (no date) [facility] (missing) (missing) (missing) Result panel 1108 Specimen collection (procedure) (no date) [facility] (missing) (missing) (missing) Result panel 1109 Specimen collection (procedure) (no date) [facility] (missing) (missing) (missing) Result panel 1110 Specimen collection (procedure) (no date) [facility] (missing) (missing) (missing) Result panel 1111 Specimen collection (procedure) (no date) [facility] (missing) (missing) (missing) Result panel 1112 Specimen collection (procedure) (no date) [facility] (missing) (missing) (missing) Result panel 1113 Specimen collection (procedure) (no date) [facility] (missing) (missing) (missing) Result panel 1114 Specimen collection (procedure) (no date) [facility] (missing) (missing) (missing) Result panel 1115 Specimen collection (procedure) (no date) [facility] (missing) (missing) (missing) Result panel 1116 Specimen collection (procedure) (no date) [facility] (missing) (missing) (missing) Result panel 1117 Specimen collection (procedure) (no date) [facility] (missing) (missing) (missing) Result panel 1118 Specimen collection (procedure) (no date) [facility] (missing) (missing) (missing) Result panel 1119 Specimen collection (procedure) (no date) [facility] (missing) (missing) (missing) Result panel 1120 Specimen collection (procedure) (no date) [facility] (missing) (missing) (missing) Result panel 1121 Specimen collection (procedure) (no date) [facility] (missing) (missing) (missing) Result panel 1122 Specimen collection (procedure) (no date) [facility] (missing) (missing) (missing) Result panel 1123 Specimen collection (procedure) (no date) [facility] (missing) (missing) (missing) Result panel 1124 Specimen collection (procedure) (no date) [facility] (missing) (missing) (missing) Result panel 1125 Specimen collection (procedure) (no date) [facility] (missing) (missing) (missing) Result panel 1126 Specimen collection (procedure) (no date) [facility] (missing) (missing) (missing) Result panel 1127 Specimen collection (procedure) (no date) [facility] (missing) (missing) (missing) Result panel 1128 Specimen collection (procedure) (no date) [facility] (missing) (missing) (missing) Result panel 1129 Specimen collection (procedure) (no date) [facility] (missing) (missing) (missing) Result panel 1130 Specimen collection (procedure) (no date) [facility] (missing) (missing) (missing) Result panel 1131 Specimen collection (procedure) (no date) [facility] (missing) (missing) (missing) Result panel 1132 Specimen collection (procedure) (no date) [facility] (missing) (missing) (missing) Result panel 1133 Specimen collection (procedure) (no date) [facility] (missing) (missing) (missing) Result panel 1134 Specimen collection (procedure) (no date) [facility] (missing) (missing) (missing) Result panel 1135 Specimen collection (procedure) (no date) [facility] (missing) (missing) (missing) Result panel 1136 Specimen collection (procedure) (no date) [facility] (missing) (missing) (missing) Result panel 1137 Specimen collection (procedure) (no date) [facility] (missing) (missing) (missing) Result panel 1138 Specimen collection (procedure) (no date) [facility] (missing) (missing) (missing) Result panel 1139 Specimen collection (procedure) (no date) [facility] (missing) (missing) (missing) Result panel 1140 Specimen collection (procedure) (no date) [facility] (missing) (missing) (missing) Result panel 1141 Specimen collection (procedure) (no date) [facility] (missing) (missing) (missing) Result panel 1142 Specimen collection (procedure) (no date) [facility] (missing) (missing) (missing) Result panel 1143 Specimen collection (procedure) (no date) [facility] (missing) (missing) (missing) Result panel 1144 Specimen collection (procedure) (no date) [facility] (missing) (missing) (missing) Result panel 1145 Specimen collection (procedure) (no date) [facility] (missing) (missing) (missing) Result panel 1146 Specimen collection (procedure) (no date) [facility] (missing) (missing) (missing) Result panel 1147 Specimen collection (procedure) (no date) [facility] (missing) (missing) (missing) Result panel 1148 Specimen collection (procedure) (no date) [facility] (missing) (missing) (missing) Result panel 1149 Specimen collection (procedure) (no date) [facility] (missing) (missing) (missing) Result panel 1150 Specimen collection (procedure) (no date) [facility] (missing) (missing) (missing) Result panel 1151 Specimen collection (procedure) (no date) [facility] (missing) (missing) (missing) Result panel 1152 Specimen collection (procedure) (no date) [facility] (missing) (missing) (missing) Result panel 1153 Specimen collection (procedure) (no date) [facility] (missing) (missing) (missing) Result panel 1154 Specimen collection (procedure) (no date) [facility] (missing) (missing) (missing) Result panel 1155 Specimen collection (procedure) (no date) [facility] (missing) (missing) (missing) Result panel 1156 Specimen collection (procedure) (no date) [facility] (missing) (missing) (missing) Result panel 1157 Specimen collection (procedure) (no date) [facility] (missing) (missing) (missing) Result panel 1158 Specimen collection (procedure) (no date) [facility] (missing) (missing) (missing) Result panel 1159 Specimen collection (procedure) (no date) [facility] (missing) (missing) (missing) Result panel 1160 Specimen collection (procedure) (no date) [facility] (missing) (missing) (missing) Result panel 1161 Specimen collection (procedure) (no date) [facility] (missing) (missing) (missing) Result panel 1162 Specimen collection (procedure) (no date) [facility] (missing) (missing) (missing) Result panel 1163 Specimen collection (procedure) (no date) [facility] (missing) (missing) (missing) Result panel 1164 Specimen collection (procedure) (no date) [facility] (missing) (missing) (missing) Result panel 1165 Specimen collection (procedure) (no date) [facility] (missing) (missing) (missing) Result panel 1166 Specimen collection (procedure) (no date) [facility] (missing) (missing) (missing) Result panel 1167 Specimen collection (procedure) (no date) [facility] (missing) (missing) (missing) Result panel 1168 Specimen collection (procedure) (no date) [facility] (missing) (missing) (missing) Result panel 1169 Specimen collection (procedure) (no date) [facility] (missing) (missing) (missing) Result panel 1170 Specimen collection (procedure) (no date) [facility] (missing) (missing) (missing) Result panel 1171 Specimen collection (procedure) (no date) [facility] (missing) (missing) (missing) Result panel 1172 Specimen collection (procedure) (no date) [facility] (missing) (missing) (missing) Result panel 1173 Specimen collection (procedure) (no date) [facility] (missing) (missing) (missing) Result panel 1174 Specimen collection (procedure) (no date) [facility] (missing) (missing) (missing) Result panel 1175 Specimen collection (procedure) (no date) [facility] (missing) (missing) (missing) Result panel 1176 Specimen collection (procedure) (no date) [facility] (missing) (missing) (missing) Result panel 1177 Specimen collection (procedure) (no date) [facility] (missing) (missing) (missing) Result panel 1178 Specimen collection (procedure) (no date) [facility] (missing) (missing) (missing) Result panel 1179 Specimen collection (procedure) (no date) [facility] (missing) (missing) (missing) Result panel 1180 Specimen collection (procedure) (no date) [facility] (missing) (missing) (missing) Result panel 1181 Specimen collection (procedure) (no date) [facility] (missing) (missing) (missing) Result panel 1182 Specimen collection (procedure) (no date) [facility] (missing) (missing) (missing) Result panel 1183 Specimen collection (procedure) (no date) [facility] (missing) (missing) (missing) Result panel 1184 Specimen collection (procedure) (no date) [facility] (missing) (missing) (missing) Result panel 1185 Specimen collection (procedure) (no date) [facility] (missing) (missing) (missing) Result panel 1186 Specimen collection (procedure) (no date) [facility] (missing) (missing) (missing) Result panel 1187 Specimen collection (procedure) (no date) [facility] (missing) (missing) (missing) Result panel 1188 Specimen collection (procedure) (no date) [facility] (missing) (missing) (missing) Result panel 1189 Specimen collection (procedure) (no date) [facility] (missing) (missing) (missing) Result panel 1190 Specimen collection (procedure) (no date) [facility] (missing) (missing) (missing) Result panel 1191 Specimen collection (procedure) (no date) [facility] (missing) (missing) (missing) Result panel 1192 Specimen collection (procedure) (no date) [facility] (missing) (missing) (missing) Result panel 1193 Specimen collection (procedure) (no date) [facility] (missing) (missing) (missing) Result panel 1194 Specimen collection (procedure) (no date) [facility] (missing) (missing) (missing) Result panel 1195 Specimen collection (procedure) (no date) [facility] (missing) (missing) (missing) Result panel 1196 Specimen collection (procedure) (no date) [facility] (missing) (missing) (missing) Result panel 1197 Specimen collection (procedure) (no date) [facility] (missing) (missing) (missing) Result panel 1198 Specimen collection (procedure) (no date) [facility] (missing) (missing) (missing) Result panel 1199 Specimen collection (procedure) (no date) [facility] (missing) (missing) (missing) Result panel 1200 Specimen collection (procedure) (no date) [facility] (missing) (missing) (missing) Result panel 1201 Specimen collection (procedure) (no date) [facility] (missing) (missing) (missing) Result panel 1202 Specimen collection (procedure) (no date) [facility] (missing) (missing) (missing) Result panel 1203 Specimen collection (procedure) (no date) [facility] (missing) (missing) (missing) Result panel 1204 Specimen collection (procedure) (no date) [facility] (missing) (missing) (missing) Result panel 1205 Specimen collection (procedure) (no date) [facility] (missing) (missing) (missing) Result panel 1206 Specimen collection (procedure) (no date) [facility] (missing) (missing) (missing) Result panel 1207 Specimen collection (procedure) (no date) [facility] (missing) (missing) (missing) Result panel 1208 Specimen collection (procedure) (no date) [facility] (missing) (missing) (missing) Result panel 1209 Specimen collection (procedure) (no date) [facility] (missing) (missing) (missing) Result panel 1210 Specimen collection (procedure) (no date) [facility] (missing) (missing) (missing) Result panel 1211 Specimen collection (procedure) (no date) [facility] (missing) (missing) (missing) Result panel 1212 Specimen collection (procedure) (no date) [facility] (missing) (missing) (missing) Result panel 1213 Specimen collection (procedure) (no date) [facility] (missing) (missing) (missing) Result panel 1214 Specimen collection (procedure) (no date) [facility] (missing) (missing) (missing) Result panel 1215 Specimen collection (procedure) (no date) [facility] (missing) (missing) (missing) Result panel 1216 Specimen collection (procedure) (no date) [facility] (missing) (missing) (missing) Result panel 1217 Specimen collection (procedure) (no date) [facility] (missing) (missing) (missing) Result panel 1218 Specimen collection (procedure) (no date) [facility] (missing) (missing) (missing) Result panel 1219 Specimen collection (procedure) (no date) [facility] (missing) (missing) (missing) Result panel 1220 Specimen collection (procedure) (no date) [facility] (missing) (missing) (missing) Result panel 1221 Specimen collection (procedure) (no date) [facility] (missing) (missing) (missing) Result panel 1222 Specimen collection (procedure) (no date) [facility] (missing) (missing) (missing) Result panel 1223 Specimen collection (procedure) (no date) [facility] (missing) (missing) (missing) Result panel 1224 Specimen collection (procedure) (no date) [facility] (missing) (missing) (missing) Result panel 1225 Specimen collection (procedure) (no date) [facility] (missing) (missing) (missing) Result panel 1226 Specimen collection (procedure) (no date) [facility] (missing) (missing) (missing) Result panel 1227 Specimen collection (procedure) (no date) [facility] (missing) (missing) (missing) Result panel 1228 Specimen collection (procedure) (no date) [facility] (missing) (missing) (missing) Result panel 1229 Specimen collection (procedure) (no date) [facility] (missing) (missing) (missing) Result panel 1230 Specimen collection (procedure) (no date) [facility] (missing) (missing) (missing) Result panel 1231 Specimen collection (procedure) (no date) [facility] (missing) (missing) (missing) Result panel 1232 Specimen collection (procedure) (no date) [facility] (missing) (missing) (missing) Result panel 1233 Specimen collection (procedure) (no date) [facility] (missing) (missing) (missing) Result panel 1234 Specimen collection (procedure) (no date) [facility] (missing) (missing) (missing) Result panel 1235 Specimen collection (procedure) (no date) [facility] (missing) (missing) (missing) Result panel 1236 Specimen collection (procedure) (no date) [facility] (missing) (missing) (missing) Result panel 1237 Specimen collection (procedure) (no date) [facility] (missing) (missing) (missing) Result panel 1238 Specimen collection (procedure) (no date) [facility] (missing) (missing) (missing) Result panel 1239 Specimen collection (procedure) (no date) [facility] (missing) (missing) (missing) Result panel 1240 Specimen collection (procedure) (no date) [facility] (missing) (missing) (missing) Result panel 1241 Specimen collection (procedure) (no date) [facility] (missing) (missing) (missing) Result panel 1242 Specimen collection (procedure) (no date) [facility] (missing) (missing) (missing) Result panel 1243 Specimen collection (procedure) (no date) [facility] (missing) (missing) (missing) Result panel 1244 Specimen collection (procedure) (no date) [facility] (missing) (missing) (missing) Result panel 1245 Specimen collection (procedure) (no date) [facility] (missing) (missing) (missing) Result panel 1246 Specimen collection (procedure) (no date) [facility] (missing) (missing) (missing) Result panel 1247 Specimen collection (procedure) (no date) [facility] (missing) (missing) (missing) Result panel 1248 Specimen collection (procedure) (no date) [facility] (missing) (missing) (missing) Result panel 1249 Specimen collection (procedure) (no date) [facility] (missing) (missing) (missing) Result panel 1250 Specimen collection (procedure) (no date) [facility] (missing) (missing) (missing) Result panel 1251 Specimen collection (procedure) (no date) [facility] (missing) (missing) (missing) Result panel 1252 Specimen collection (procedure) (no date) [facility] (missing) (missing) (missing) Result panel 1253 Specimen collection (procedure) (no date) [facility] (missing) (missing) (missing) Result panel 1254 Specimen collection (procedure) (no date) [facility] (missing) (missing) (missing) Result panel 1255 Specimen collection (procedure) (no date) [facility] (missing) (missing) (missing) Result panel 1256 Specimen collection (procedure) (no date) [facility] (missing) (missing) (missing) Result panel 1257 Specimen collection (procedure) (no date) [facility] (missing) (missing) (missing) Result panel 1258 Specimen collection (procedure) (no date) [facility] (missing) (missing) (missing) Result panel 1259 Specimen collection (procedure) (no date) [facility] (missing) (missing) (missing) Result panel 1260 Specimen collection (procedure) (no date) [facility] (missing) (missing) (missing) Result panel 1261 Specimen collection (procedure) (no date) [facility] (missing) (missing) (missing) Result panel 1262 Specimen collection (procedure) (no date) [facility] (missing) (missing) (missing) Result panel 1263 Specimen collection (procedure) (no date) [facility] (missing) (missing) (missing) Result panel 1264 Specimen collection (procedure) (no date) [facility] (missing) (missing) (missing) Result panel 1265 Specimen collection (procedure) (no date) [facility] (missing) (missing) (missing) Result panel 1266 Specimen collection (procedure) (no date) [facility] (missing) (missing) (missing) Result panel 1267 Specimen collection (procedure) (no date) [facility] (missing) (missing) (missing) Result panel 1268 Specimen collection (procedure) (no date) [facility] (missing) (missing) (missing) Result panel 1269 Specimen collection (procedure) (no date) [facility] (missing) (missing) (missing) Result panel 1270 Specimen collection (procedure) (no date) [facility] (missing) (missing) (missing) Result panel 1271 Specimen collection (procedure) (no date) [facility] (missing) (missing) (missing) Result panel 1272 Specimen collection (procedure) (no date) [facility] (missing) (missing) (missing) Result panel 1273 Specimen collection (procedure) (no date) [facility] (missing) (missing) (missing) Result panel 1274 Specimen collection (procedure) (no date) [facility] (missing) (missing) (missing) Result panel 1275 Specimen collection (procedure) (no date) [facility] (missing) (missing) (missing) Result panel 1276 Specimen collection (procedure) (no date) [facility] (missing) (missing) (missing) Result panel 1277 Specimen collection (procedure) (no date) [facility] (missing) (missing) (missing) Result panel 1278 Specimen collection (procedure) (no date) [facility] (missing) (missing) (missing) Result panel 1279 Specimen collection (procedure) (no date) [facility] (missing) (missing) (missing) Result panel 1280 Specimen collection (procedure) (no date) [facility] (missing) (missing) (missing) Result panel 1281 Specimen collection (procedure) (no date) [facility] (missing) (missing) (missing) Result panel 1282 Specimen collection (procedure) (no date) [facility] (missing) (missing) (missing) Result panel 1283 Specimen collection (procedure) (no date) [facility] (missing) (missing) (missing) Result panel 1284 Specimen collection (procedure) (no date) [facility] (missing) (missing) (missing) Result panel 1285 Specimen collection (procedure) (no date) [facility] (missing) (missing) (missing) Result panel 1286 Specimen collection (procedure) (no date) [facility] (missing) (missing) (missing) Result panel 1287 Specimen collection (procedure) (no date) [facility] (missing) (missing) (missing) Result panel 1288 Specimen collection (procedure) (no date) [facility] (missing) (missing) (missing) Result panel 1289 Specimen collection (procedure) (no date) [facility] (missing) (missing) (missing) Result panel 1290 Specimen collection (procedure) (no date) [facility] (missing) (missing) (missing) Result panel 1291 Specimen collection (procedure) (no date) [facility] (missing) (missing) (missing) Result panel 1292 Specimen collection (procedure) (no date) [facility] (missing) (missing) (missing) Result panel 1293 Specimen collection (procedure) (no date) [facility] (missing) (missing) (missing) Result panel 1294 Specimen collection (procedure) (no date) [facility] (missing) (missing) (missing) Result panel 1295 Specimen collection (procedure) (no date) [facility] (missing) (missing) (missing) Result panel 1296 Specimen collection (procedure) (no date) [facility] (missing) (missing) (missing) Result panel 1297 Specimen collection (procedure) (no date) [facility] (missing) (missing) (missing) Result panel 1298 Serum prothrombin time 2024-11-04 23:02:07 Merged With [facility] 1 3.4 SECONDS (missing) Result panel 1299 INR in Platelet poor plasma by Coagulation assay 2024-11-04 23:02:07 Merged With [facility] 1.2 (missing) (miss ing) Result panel 1300 Troponin I.cardiac [Mass/volume] in Serum or Plasma 2024-11-04 23:02:07 Merged With [facility] 0.024 ng/mL (miss ing) Result panel 1301 Natriuretic peptide.B prohormone N-Terminal [Mass/volume] in Serum or Plasma 2024-11-04 23:02:07 Merged With [facility] 4270 pg/mL (miss ing) Result panel 1302 Serum prothrombin time 2024-11-04 23:02:07 Merged With [facility] 1 3.4 SECONDS (missing) Result panel 1303 INR in Platelet poor plasma by Coagulation assay 2024-11-04 23:02:07 Merged With [facility] 1.2 (missing) (miss ing) Result panel 1304 Troponin I.cardiac [Mass/volume] in Serum or Plasma 2024-11-04 23:02:07 Merged With [facility] 0.024 ng/mL (miss ing) Result panel 1305 Natriuretic peptide.B prohormone N-Terminal [Mass/volume] in Serum or Plasma 2024-11-04 23:02:07 Merged With [facility] 4270 pg/mL (miss ing) Result panel 1306 Serum prothrombin time 2024-11-04 23:02:07 Merged With [facility] 1 3.4 SECONDS (missing) Result panel 1307 INR in Platelet poor plasma by Coagulation assay 2024-11-04 23:02:07 Merged With [facility] 1.2 (missing) (miss ing) Result panel 1308 Troponin I.cardiac [Mass/volume] in Serum or Plasma 2024-11-04 23:02:07 Merged With [facility] 0.024 ng/mL (miss ing) Result panel 1309 Natriuretic peptide.B prohormone N-Terminal [Mass/volume] in Serum or Plasma 2024-11-04 23:02:07 Merged With [facility] 4270 pg/mL (miss [facility]) Result panel 1310 White blood cell count 2024-11-04 23:02:07 Merged With [facility] 8 .3 X10^3/uL (missing) Result panel 1311 Red blood cell count 2024-11-04 23:02:07 Merged With [facility] 4.9 3 X10^6/uL (missing) Result panel 1312 Hemoglobin 2024-11-04 23:02:07 Merged With [facility] 16.5 g/d L (missing) Result panel 1313 Hematocrit 2024-11-04 23:02:07 Merged With [facility] 48.7 % (missing) Result panel 1314 MCV (mean corpuscular volume ) determination 2024-11-04 23:02:07 Merged With [facility] 98.8 fL (mis sing) Result panel 1315 Mean corpuscular hemoglobin (MCH) determination 2024-11-04 23:02:07 Merged With [facility] 33.5 PG (missing) Result panel 1316 Mean corpuscular hemoglobin concentration (MCHC) determination 2024-11-04 23:02:07 Merged With [facility] 33.9 % (mis sing) Result panel 1317 Red cell distribution width determination 2024-11-04 23:02:07 Merged With [facility] 16.1 % (mis sing) Result panel 1318 Platelet count 2024-11-04 23:02:07 Merged With [facility] 212 X10^3/uL (missing) Result panel 1319 Automated neutrophil % 2024-11-04 23:02:07 Merged With [facility] 6 6.3 % (missing) Result panel 1320 Automated lymphocyte % 2024-11-04 23:02:07 Merged With [facility] 2 2.5 % (missing) Result panel 1321 Automated monocyte % 2024-11-04 23:02:07 Merged With [facility] 9.1 % (missing) Result panel 1322 Automated eosinophil % 2024-11-04 23:02:07 Merged With [facility] 1 .1 % (missing) Result panel 1323 Automated basophil % 2024-11-04 23:02:07 Merged With [facility] 1.0 % (missing) Result panel 1324 Absolute neutrophil count 2024-11-04 23:02:07 [facility] l 5500 /uL (missing) Result panel 1325 Absolute lymphocyte count 2024-11-04 [facility] Result panel 1326 Automated blood monocyte count 2024-11-04 23:02:07 [facility] spital 800 /uL (missing) Result panel 1327 Automated eosinophil count 2024-11-04 23:02[facility] Result panel 1328 Automated basophil count 2024-11-04 23:02:07 Merged With [facility] 100 /uL (missing) Result panel 1329 Serum prothrombin time 2024-11-04 23:02:07 Merged With [facility] 1 3.4 SECONDS (missing) Result panel 1330 INR in Platelet poor plasma by Coagulation assay 2024-11-04 23:02:07 Merged With [facility] 1.2 (missing) (miss ing) Result panel 1331 Troponin I.cardiac [Mass/volume] in Serum or Plasma 2024-11-04 23:02:07 Merged With [facility] 0.024 ng/mL (miss ing) Result panel 1332 Natriuretic peptide.B prohormone N-Terminal [Mass/volume] in Serum or Plasma 2024-11-04 23:02:07 Merged With [facility] 4270 pg/mL (miss ing) Result panel 1333 Sodium [Moles/volume] in Serum or Plasma 2024-11-04 23:02:07 [facility]L [facility] Result panel 1334 Potassium [Moles/volume] in Serum or Plasma 2024-11-04 23:02:07 Merged With [facility] 3.3 mmol/L ([facility]) Result panel 1335 Chloride [Moles/volume] in Serum or Plasma 2024-11-04 23:02:07 M[facility]ed [facility] 99 mmol/L [facility]) Result panel 1336 Carbon dioxide, total [Moles/volume] in Serum or Plasma 2024-11-04 23:02:07 Merged With [facility] 31 mmol/L ([facility]) Result panel 1337 Urea nitrogen [Mass/volume] in Serum or Plasma 2024-11-04 23:02:07 Merged With [facility] 18 mg/dL ([facility]) Result panel 1338 Creatinine [Mass/volume] in Serum or Plasma 2024-11-04 23:02:07 Merged With [facility] 1.34 mg/dL ([facility]) Result panel 1339 Glomerular filtration rate (GFR) estimation 2024-11-04 23:02:07 Merged With [facility] 46 mL/min ( missing) Result panel 1340 BUN/creatinine ratio 2024-11-04 23:02:07 Merged With [facility] 13. 4 (missing) (missing) Result panel 1341 Glucose [Mass/volume] in Serum or Plasma 2024-11-04 23:02:07 Merged With [facility] 121 mg/dL ([facility]) Result panel 1342 Calcium [Mass/volume] in Serum or Plasma 2024-11-04 23:02:07 Merged With [facility] 11.6 mg/dL ([facility]) Result panel 1343 Bilirubin.total [Mass/volume ] in Serum or Plasma 2024-11-04 23:02:07 Merged With [facility] 1.1 mg/dL (missing) Result panel 1344 Aspartate aminotransferase [Enzymatic activity/volume] in Serum or Plasma 2024-11-04 23:02:07 Merged With [facility] 30 IU/L ([facility]) Result panel 1345 Alanine aminotransferase [Enzymatic activity/volume] in Serum or Plasma 2024-11-04 23:02:07 Merged With [facility] 22 IU/L ([facility]) Result panel 1346 Alkaline phosphatase [Enzyma tic activity/volume] in Serum or Plasma 2024-11-04 23:02:07 Merged With [facility] 57 U/L ([facility]) Result panel 1347 Protein total ser/plas 2024-11-04 23:02:07 Merged With [facility] 6 .8 g/dL (missing) Result panel 1348 Albumin [Mass/volume] in Ser um or Plasma 2024-11-04 23:02:07 Merged With [facility] 4.1 g/dL ([facility]) Result panel 1349 Globulin [Mass/volume] in Serum by calculation 2024-11-04 23:02:07 Merged With [facility] 2.7 g/dL (missing) Result panel 1350 Albumin/Globulin [Mass Ratio] in Serum or Plasma 2024-11-04 23:02:07 Merged With [facility] 1.5 ([facility]) (missing) Result panel 1351 Serum prothrombin time 2024-11-04 23:02:07 Merged With [facility] 1 3.4 SECONDS (missing) Result panel 1352 INR in Platelet poor plasma by Coagulation assay 2024-11-04 23:02:07 Merged With [facility] 1.2 (missing) (miss [facility]) Result panel 1353 Troponin I.cardiac [Mass/volume] in Serum or Plasma 2024-11-04 23:02:07 Merged With [facility] 0.024 ng/mL (miss ing) Result panel 1354 Natriuretic peptide.B prohormone N-Terminal [Mass/volume] in Serum or Plasma 2024-11-04 23:02:07 Merged With [facility] 4270 pg/mL (miss [facility]) Result panel 1355 Basophils Percent Auto 2024-11-04 23:[address] [place] [address] 1.0 % (missing) Eosinophils Percent Auto 2024-11-04 23:[address] [place] [address] 1. 1 % (missing) Basophils Absolute Auto 2024-11-04 23:[address] [place] [address] 100 /ul (missing) Eosinophils Absolute Auto 2024-11-04 23:[address] [place] [address] 1 00 /ul (missing) Red Cell Distribution Width 2024-11-04 23:[address] [place] [address] 16.1 % (missing) Hemoglobin 2024-11-04 23:[address] [place] [address] 16.5 g/dl (missing) Lymphocytes Absolute Auto 2024-11-04 23:[address] [place] [address] 1 900 /ul (missing) Platelet Count 2024-11-04 23:[address] [place] [address] 212 x1 0 3/ul (missing) Lymphocytes Percent Auto 2024-11-04 23:[address] [place] [address] 22 .5 % (missing) Mean Corpuscular Hemoglobin 2024-11-04 23:[address] [place] [address] 33.5 pg (missing) Mean Corpuscular HGB Conc 2024-11-04 23:[address] [place] [address] 3 3.9 % (missing) Red Blood Cell Count 2024-11-04 23:[address] [place] [address] 4.93 x10 6/ul (missing) Hematocrit 2024-11-04 23:[address] [place] [address] 48.7 % (missing) Neutrophils Absolute Auto 2024-11-04 23:[address] [place] [address] 5 500 /ul (missing) Neutrophils Percent Auto 2024-11-04 23:[address] [place] [address] 66 .3 % (missing) White Blood Cell Count 2024-11-04 23:17 Merged With [facility] 8.3 x10 3/ul (missing) Monocytes Absolute Auto 2024-11-04 23:17 Merged With [facility] 800 /ul (missing) Monocytes Percent Auto 2024-11-04 23:17 Merged With [facility] 9.1 % (missing) Mean Corpuscular Volume 2024-11-04 23:17 Merged With [facility] 98. 8 fl (missing) Result panel 1356 INR 2024-11-04 23:21 Merged With [facility] 1.2 (missin g) (missing) Prothrombin Time 2024-11-04 23:21 Merged With [facility] 13.4 seconds Comment If patient is on warfarin Result panel 1357 X-ray report 2024-11-04 23:27 Merged With [facility] (missing) (mis sing) (missing) Result panel 1358 X-ray report 2024-11-04 23:27 Merged With [facility] (missing) (mis sing) (missing) Result panel 1359 Lactate (Lactic Acid) 2024-11-04 23:28 Merged With [facility] 2.9 mmol/l Yes/No query for Sepsis Lactate Rule Y Result panel 1360 Bilirubin Total 2024-11-04 23:29 Merged With [facility] 1.1 mg/dl (missing) Creatinine 2024-11-04 23:29 Merged With [facility] 1.34 mg/dl (missing) Albumin Globulin Ratio 2024-11-04 23:29 Merged With [facility] 1.5 (missing) (missing) Calcium 2024-11-04 23:29 Merged With [facility] 11.6 mg/dl (missing) Glucose 2024-11-04 23:29 Merged With [facility] 121 mg/dl (missing) BUN Creatinine Ratio 2024-11-04 23:29 Merged With [facility] 13.4 (missing) (missing) Sodium 2024-11-04 23:29 Merged With [facility] 141 mmol/l Physician Instructions if pt has history of CHF Blood Urea Nitrogen 2024-11-04 23:29 Merged With [facility] 18 mg/dl (missing) Globulin 2024-11-04 23:29 Merged With [facility] 2.7 g/dl (missing) Alanine Aminotransferase 2024-11-04 23:29 Merged With [facility] 22 iu/l (missing) Potassium 2024-11-04 23:29 Merged With [facility] 3.3 mmol/l (missing) Aspartate Aminotransferase 2024-11-04 23:29 Merged With [facility] 30 iu/l (missing) Carbon Dioxide 2024-11-04 23:29 Merged With [facility] 31 mmol/l (missing) Albumin 2024-11-04 23:29 Merged With [facility] 4.1 g/dl (missing) Estimated Glomerular Filt Rate 2024-11-04 23:29 Merged With [facility] 46 ml/min Reported eGFR is based the CKD-EPI 2020 equation that does not use a race coefficient. An eGFR below 60 mL/min/1.73m2 suggests that some kidney damage has occurred, and indicative of chronic kidney disease if persisting greater than 3 months. An eGFR less than 15 is indicative of kidney failure. Alkaline Phosphatase 2024-11-04 23:29 Merged With [facility] 57 u/l (missing) Total Protein 2024-11-04 23:29 Merged With [facility] 6.8 g/dl (missing) Chloride 2024-11-04 23:29 Merged With [facility] 99 mmol/l (missing) Result panel 1361 Arterial blood pH measurement 2024-11-04 23:33:07 Merged With [facility] 7.40 (missing) ([facility]) Result panel 1362 Arterial blood gas (pH, pCO2 , pO2, CO2, HCO3, calculated O2 saturation) 2024-11-04 23:33:07 Merged With [facility] 49.5 mmHg ([facility]) Result panel 1363 Arterial blood partial press ure of oxygen 2024-11-04 23:33:07 Merged With [facility] 65 mmHg ([facility]) Result panel 1364 Arterial blood oxygen satura tion measurement 2024-11-04 23:33:07 Merged With [facility] 92 % ([facility]) Result panel 1365 Arterial blood pH measurement 2024-11-04 23:33:07 Merged With [facility] 7.40 (missing) ([facility]) Result panel 1366 Arterial blood gas (pH, pCO2 , pO2, CO2, HCO3, calculated O2 saturation) 2024-11-04 23:33:07 Merged With [facility] 49.5 mmHg ([facility]) Result panel 1367 Arterial blood partial press ure of oxygen 2024-11-04 23:33:07 Merged With [facility] 65 mmHg ([facility]) Result panel 1368 Arterial blood oxygen satura tion measurement 2024-11-04 23:33:07 Merged With [facility] 92 % ([facility]) Result panel 1369 Arterial blood pH measurement 2024-11-04 23:33:07 Merged With [facility] 7.40 (missing) ([facility]) Result panel 1370 Arterial blood gas (pH, pCO2 , pO2, CO2, HCO3, calculated O2 saturation) 2024-11-04 23:33:07 Merged With [facility] 49.5 mmHg ([facility]) Result panel 1371 Arterial blood partial press ure of oxygen 2024-11-04 23:33:07 Merged With [facility] 65 mmHg ([facility]) Result panel 1372 Arterial blood oxygen satura tion measurement 2024-11-04 23:33:07 Merged With [facility] 92 % ([facility]) Result panel 1373 Arterial blood pH measurement 2024-11-04 23:33:07 Merged With [facility] 7.40 (missing) ([facility]) Result panel 1374 Arterial blood gas (pH, pCO2 , pO2, CO2, HCO3, calculated O2 saturation) 2024-11-04 23:33:07 Merged With [facility] 49.5 mmHg ([facility]) Result panel 1375 Arterial blood partial press ure of oxygen 2024-11-04 23:33:07 Merged With [facility] 65 mmHg ([facility]) Result panel 1376 Arterial blood oxygen satura tion measurement 2024-11-04 23:33:07 Merged With [facility] 92 % ([facility]) Result panel 1377 Arterial blood pH measurement 2024-11-04 23:33:07 Merged With [facility] 7.40 (missing) ([facility]) Result panel 1378 Arterial blood gas (pH, pCO2 , pO2, CO2, HCO3, calculated O2 saturation) 2024-11-04 23:33:07 Merged With [facility] 49.5 mmHg ([facility]) Result panel 1379 Arterial blood partial press ure of oxygen 2024-11-04 23:33:07 Merged With [facility] 65 mmHg ([facility]) Result panel 1380 Arterial blood oxygen satura tion measurement 2024-11-04 23:33:07 Merged With [facility] 92 % ([facility]) Result panel 1381 Troponin I 2024-11-04 23:36 Merged With [facility] 0.024 ng/ml Physician Instructions if pt has history of CHF Ortho Troponin-I Recommended Upper Reference Range & Cutoff The 99th Percentile URL: 0.034 ng/mL AMI Diagnostic Cutoff: 0.120 ng/mL Bilirubin Total 2024-11-04 23:36 Merged With [facility] 1.1 mg/dl (missing) Creatinine 2024-11-04 23:36 Merged With [facility] 1.34 mg/dl (missing) Albumin Globulin Ratio 2024-11-04 23:36 Merged With [facility] 1.5 (missing) (missing) Calcium 2024-11-04 23:36 Merged With [facility] 11.6 mg/dl (missing) Glucose 2024-11-04 23:[address] [place] [address] 121 mg/dl (missing) BUN Creatinine Ratio 2024-11-04 23:[address] [place] [address] 13.4 (missing) (missing) Sodium 2024-11-04 23:[address] [place] [address] 141 mmol/l Physician Instructions if pt has history of CHF Blood Urea Nitrogen 2024-11-04 23:[address] [place] [address] 18 mg/dl (missing) Globulin 2024-11-04 23:[address] [place] [address] 2.7 g/dl (missing) Alanine Aminotransferase 2024-11-04 23:[address] [place] [address] 22 iu/l (missing) Potassium 2024-11-04 23:[address] [place] [address] 3.3 mmol/l (missing) Aspartate Aminotransferase 2024-11-04 23:[address] [place] [address] 30 iu/l (missing) Carbon Dioxide 2024-11-04 23:[address] [place] [address] 31 mmol/l (missing) Albumin 2024-11-04 23:[address] [place] [address] 4.1 g/dl (missing) NT-proBNP (BNP-Adult 18+) 2024-11-04 23:[address] [place] [address] 4270 pg/ml Physician Instructions if pt has [...] HF. Estimated Glomerular Filt Rate 2024-11-04 23:36 Merged With [facility] 46 ml/min Reported eGFR is based the CKD-EPI 2020 equation that does not use a race coefficient. An eGFR below 60 mL/min/1.73m2 suggests that some kidney damage has occurred, and indicative of chronic kidney disease if persisting greater than 3 months. An eGFR less than 15 is indicative of kidney failure. Alkaline Phosphatase 2024-11-04 23:36 Merged With [facility] 57 u/l (missing) Total Protein 2024-11-04 23:36 Merged With [facility] 6.8 g/dl (missing) Chloride 2024-11-04 23:36 Merged With [facility] 99 mmol/l (missing) Result panel 1382 TCO2 ABG 2024-11-04 23:37 Merged With [facility] 29 mmol/l (missing) HCO3 ABG 2024-11-04 23:37 Merged With [facility] 31 mmol/l (missing) Fractionated Inspired Oxygen 2024-11-04 23:37 Merged With [facility] 32.0 % % (miss ing) Base Excess ABG 2024-11-04 23:37 Merged With [facility] 4.4 m mol/l (missing) PCO2 ABG 2024-11-04 23:37 Merged With [facility] 49.5 mmhg (missing) PO2 ABG 2024-11-04 23:37 Merged With [facility] 65 mmhg (missing) pH ABG 2024-11-04 23:37 Merged With [facility] 7.40 (missin g) (missing) Oxygen Saturation ABG 2024-11-04 23:37 Merged With [facility] 92 % (missing ) Delivery System 2024-11-04 23:37 Merged With [facility] Cannula ( missing) (missing) Gutierrez Test for ABG Passed? 2024-11-04 23:37 Merged With [facility] Positive (missing) (missing ) Blood Gas Collection Site 2024-11-04 23:37 Merged With [facility] Right Radial (missing) (missing ) Result panel 1383 Lactate [Mass/volume] in Serum or Plasma 2024-11-05 01:00:07 Merged With [facility] 2.4 mmol/L (m iss[facility]) Result panel 1384 Lactate [Mass/volume] in Serum or Plasma 2024-11-05 01:00:07 Merged With [facility] 2.4 mmol/L (m [facility]) Result panel 1385 Lactate [Mass/volume] in Serum or Plasma 2024-11-05 01:00:07 Merged With [facility] 2.4 mmol/L (m [facility]) Result panel 1386 Lactate [Mass/volume] in Serum or Plasma 2024-11-05 01:00:07 Merged With [facility] 2.4 mmol/L ([facility]) Result panel 1387 Lactate [Mass/volume] in Serum or Plasma 2024-11-05 01:00:07 Merged With [facility] 2.4 mmol/L ([facility]) Result panel 1388 Lactate 2HR (Lactic Acid Rflx) 2024-11-05 01:36 [facility] 2.4 mmol/l (missing) Result panel 1389 Bilirubin.total [Mass/volume ] in Serum or Plasma 2024-11-05 06:16:07 Merged With [facility] 1.2 mg/dL (missing) Result panel 1390 Aspartate aminotransferase [Enzymatic activity/volume] in Serum or Plasma 2024-11-05 06:16:07 Merged With [facility] 34 IU/L ([facility]) Result panel 1391 Alanine aminotransferase [Enzymatic activity/volume] in Serum or Plasma 2024-11-05 06:16:07 Merged With [facility] 26 IU/L ([facility]) Result panel 1392 Alkaline phosphatase [Enzyma tic activity/volume] in Serum or Plasma 2024-11-05 06:16:07 Merged With [facility] 63 U/L ([facility]) Result panel 1393 Protein total ser/plas 2024-11-05 06:16:07 Merged With [facility] 7 .4 g/dL (missing) Result panel 1394 Albumin [Mass/volume] in Ser um or Plasma 2024-11-05 06:16:07 Merged With [facility] 4.3 g/dL (miss ing) Result panel 1395 Globulin [Mass/volume] in Serum by calculation 2024-11-05 06:16:07 Merged With [facility] 3.1 g/dL (missing) Result panel 1396 Albumin/Globulin [Mass Ratio] in Serum or Plasma 2024-11-05 06:16:07 Merged With [facility] 1.4 (miss ing) (missing) Result panel 1397 Bilirubin.total [Mass/volume ] in Serum or Plasma 2024-11-05 06:16:07 Merged With [facility] 1.2 mg/dL (missing) Result panel 1398 Aspartate aminotransferase [Enzymatic activity/volume] in Serum or Plasma 2024-11-05 06:16:07 M[facility]ed With [facility] 34 IU[facility]L [facility] Result panel 1399 Alanine aminotransferase [Enzymatic activity/volume] in Serum or Plasma 2024-11-05 06:16:07 Merged With [facility] 26 IU/L ([facility]) Result panel 1400 Alkaline phosphatase [Enzyma tic activity/volume] in Serum or Plasma 2024-11-05 06:16:07 Merged With [facility] 63 U/L ([facility]) Result panel 1401 Protein total ser/plas 2024-11-05 06:16:07 Merged With [facility] 7 .4 g/dL (missing) Result panel 1402 Albumin [Mass/volume] in Ser um or Plasma 2024-11-05 06:16:07 Merged With [facility] 4.3 g/dL ([facility]) Result panel 1403 Globulin [Mass/volume] in Serum by calculation 2024-11-05 06:16:07 Merged With [facility] 3.1 g/dL (missing) Result panel 1404 Albumin/Globulin [Mass Ratio] in Serum or Plasma 2024-11-05 06:16:07 Merged With [facility] 1.4 ([facility]) (missing) Result panel 1405 Bilirubin.total [Mass/volume ] in Serum or Plasma 2024-11-05 06:16:07 Merged With [facility] 1.2 mg/dL (missing) Result panel 1406 Aspartate aminotransferase [Enzymatic activity/volume] in Serum or Plasma 2024-11-05 06:16:07 Merged With [facility] 34 IU/L ([facility]) Result panel 1407 Alanine aminotransferase [Enzymatic activity/volume] in Serum or Plasma 2024-11-05 06:16:07 Merged With [facility] 26 IU/L ([facility]) Result panel 1408 Alkaline phosphatase [Enzyma tic activity/volume] in Serum or Plasma 2024-11-05 06:16:07 Merged With [facility] 63 U/L ([facility]) Result panel 1409 Protein total ser/plas 2024-11-05 06:16:07 Merged With [facility] 7 .4 g/dL (missing) Result panel 1410 Albumin [Mass/volume] in Ser um or Plasma 2024-11-05 06:16:07 Merged With [facility] 4.3 g/dL ([facility]) Result panel 1411 Globulin [Mass/volume] in Serum by calculation 2024-11-05 06:16:07 Merged With [facility] 3.1 g/dL (missing) Result panel 1412 Albumin/Globulin [Mass Ratio] in Serum or Plasma 2024-11-05 06:16:07 Merged With [facility] 1.4 ([facility]) (missing) Result panel 1413 Bilirubin.total [Mass/volume ] in Serum or Plasma 2024-11-05 06:16:07 Merged With [facility] 1.2 mg/dL (missing) Result panel 1414 Aspartate aminotransferase [Enzymatic activity/volume] in Serum or Plasma 2024-11-05 06:16:07 Merged With [facility] 34 IU/L ([facility]) Result panel 1415 Alanine aminotransferase [Enzymatic activity/volume] in Serum or Plasma 2024-11-05 06:16:07 Merged With [facility] 26 IU/L ([facility]) Result panel 1416 Alkaline phosphatase [Enzyma tic activity/volume] in Serum or Plasma 2024-11-05 06:16:07 Merged With [facility] 63 U/L ([facility]) Result panel 1417 Protein total ser/plas 2024-11-05 06:16:07 Merged With [facility] 7 .4 g/dL (missing) Result panel 1418 Albumin [Mass/volume] in Ser um or Plasma 2024-11-05 06:16:07 Merged With [facility] 4.3 g/dL ([facility]) Result panel 1419 Globulin [Mass/volume] in Serum by calculation 2024-11-05 06:16:07 Merged With [facility] 3.1 g/dL (missing) Result panel 1420 Albumin/Globulin [Mass Ratio] in Serum or Plasma 2024-11-05 06:16:07 Merged With [facility] 1.4 ([facility]) (missing) Result panel 1421 Basophils Absolute Auto 2024-11-05 06:27 Merged With [facility] 0 /ul (missing ) Eosinophils Absolute Auto 2024-11-05 06:27 Merged With [facility] 0 /ul (missing ) Eosinophils Percent Auto 2024-11-05 06:27 Merged With [facility] 0.0 % (missing ) Basophils Percent Auto 2024-11-05 06:27 Merged With [facility] 0.4 % (missing ) Monocytes Percent Auto 2024-11-05 06:27 Merged With [facility] 1.4 % (missing ) Monocytes Absolute Auto 2024-11-05 06:27 Merged With [facility] 100 /ul (missing ) Red Cell Distribution Width 2024-11-05 06:27 Merged With [facility] 16.2 % (missing ) Hemoglobin 2024-11-05 06:27 Merged With [facility] 17.0 g/dl (missing) Platelet Count 2024-11-05 06:27 Merged With [facility] 208 x1 0 3/ul (missing) Mean Corpuscular Hemoglobin 2024-11-05 06:27 Merged With [facility] 33.2 pg (missing ) Mean Corpuscular HGB Conc 2024-11-05 06:27 Merged With [facility] 33.6 % (missing ) Red Blood Cell Count 2024-11-05 06:27 Merged With [facility] 5.11 x10 6/ul (missing) Hematocrit 2024-11-05 06:27 Merged With [facility] 50.5 % (missing) Lymphocytes Absolute Auto 2024-11-05 06:27 Merged With [facility] 600 /ul (missing ) Neutrophils Absolute Auto 2024-11-05 06:27 Merged With [facility] 6200 /ul (missing ) White Blood Cell Count 2024-11-05 06:27 Merged With [facility] 7.0 x10 3/ul (missing ) Lymphocytes Percent Auto 2024-11-05 06:27 Merged With [facility] 8.7 % (missing ) Neutrophils Percent Auto 2024-11-05 06:27 Merged With [facility] 89.5 % Delta: 6 6.3 on 11/04/24-2301 Mean Corpuscular Volume 2024-11-05 06:27 Merged With [facility] 98.7 fl (missing ) Result panel 1422 Estimated Glomerular Filt Rate 2024-11-05 06:43 Merged With [facility] > 60 ml/min Reported eGFR is based the CKD-EPI 2020 equation that does not use a race coefficient. An eGFR below 60 mL/min/1.73m2 suggests that some kidney damage has occurred, and indicative of chronic kidney disease if persisting greater than 3 months. An eGFR less than 15 is indicative of kidney failure. Creatinine 2024-11-05 06:43 Merged With [facility] 1.03 mg/dl (missing) Bilirubin Total 2024-11-05 06:43 Merged With [facility] 1.2 mg/dl (missing) Albumin Globulin Ratio 2024-11-05 06:43 Merged With [facility] 1.4 (missing) (missing) Calcium 2024-11-05 06:43 Merged With [facility] 11.6 mg/dl (missing) Sodium 2024-11-05 06:43 Merged With [facility] 139 mmol/l (missing) Glucose 2024-11-05 06:43 Merged With [facility] 154 mg/dl (missing) BUN Creatinine Ratio 2024-11-05 06:43 Merged With [facility] 18.4 (missing) (missing) Blood Urea Nitrogen 2024-11-05 06:43 Merged With [facility] 19 mg/dl (missing) Alanine Aminotransferase 2024-11-05 06:43 Merged With [facility] 26 iu/l (missing) Globulin 2024-11-05 06:43 Merged With [facility] 3.1 g/dl (missing) Potassium 2024-11-05 06:43 Merged With [facility] 3.8 mmol/l (missing) Carbon Dioxide 2024-11-05 06:43 Merged With [facility] 30 mmol/l (missing) Aspartate Aminotransferase 2024-11-05 06:43 Merged With [facility] 34 iu/l (missing) Albumin 2024-11-05 06:43 Merged With [facility] 4.3 g/dl (missing) Alkaline Phosphatase 2024-11-05 06:43 Merged With [facility] 63 u/l (missing) Total Protein 2024-11-05 06:43 Merged With [facility] 7.4 g/dl (missing) Chloride 2024-11-05 06:43 Merged With [facility] 98 mmol/l (missing) Result panel 1423 Emergency department note 2024-11-05 15:52 Merged With [facility] (missing) (missing) (missing ) Result panel 1424 White blood cell count 2024-11-06 04:26:07 Merged With [facility] 1 1.9 X10^3/uL (missing) Result panel 1425 Red blood cell count 2024-11-06 04:26:07 Merged With [facility] 4.9 5 X10^6/uL (missing) Result panel 1426 Hemoglobin 2024-11-06 04:26:07 Merged With [facility] 16.4 g/d L (missing) Result panel 1427 Hematocrit 2024-11-06 04:26:07 Merged With [facility] 49.0 % (missing) Result panel 1428 MCV (mean corpuscular volume ) determination 2024-11-06 04:26:07 Merged With [facility] 99.0 fL (mis sing) Result panel 1429 Mean corpuscular hemoglobin (MCH) determination 2024-11-06 04:26:07 Merged With [facility] 33.2 PG (missing) Result panel 1430 Mean corpuscular hemoglobin concentration (MCHC) determination 2024-11-06 04:26:07 Merged With [facility] 33.5 % (mis sing) Result panel 1431 Red cell distribution width determination 2024-11-06 04:26:07 Merged With [facility] 16.2 % (mis sing) Result panel 1432 Platelet count 2024-11-06 04:26:07 Merged With [facility] 216 X10^3/uL (missing) Result panel 1433 Automated neutrophil % 2024-11-06 04:26:07 Merged With [facility] 9 2.1 % (missing) Result panel 1434 Automated lymphocyte % 2024-11-06 04:26:07 Merged With [facility] 4 .7 % (missing) Result panel 1435 Automated monocyte % 2024-11-06 04:26:07 Merged With [facility] 3.0 % (missing) Result panel 1436 Automated eosinophil % 2024-11-06 04:26:07 Merged With [facility] 0 .0 % (missing) Result panel 1437 Automated basophil % 2024-11-06 04:26:07 Merged With [facility] 0.2 % (missing) Result panel 1438 Absolute neutrophil count 2024-11-06 04:26:07 [facility] l 7[address]02 /uL (missing) Result panel 1439 Absolute lymphocyte count 2024-11-06 [facility] Result panel 1440 Automated blood monocyte count 2024-11-06 04:26:07 [facility] spital 400 /uL (missing) Result panel 1441 Automated eosinophil count 2024-11-06 04:[facility] Result panel 1442 Automated basophil count 2024-11-06 04:26:07 [facility] 0 /uL (missing) Result panel 1443 Sodium [Moles/volume] in Serum or Plasma 2024-11-06 04:26:07 Merged With [facility] 140 mmol/L ([facility]) Result panel 1444 Potassium [Moles/volume] in Serum or Plasma 2024-11-06 04:26:07 Merged With [facility] 3.7 mmol/L ([facility]) Result panel 1445 Chloride [Moles/volume] in Serum or Plasma 2024-11-06 04:26:07 Merged With [facility] 97 mmol/L ([facility]) Result panel 1446 Carbon dioxide, total [Moles/volume] in Serum or Plasma 2024-11-06 04:26:07 Merged With [facility] 32 mmol/L ([facility]) Result panel 1447 Urea nitrogen [Mass/volume] in Serum or Plasma 2024-11-06 04:26:07 [facility] 37 mg/dL [facility]) Result panel 1448 Creatinine [Mass/volume] in Serum or Plasma 2024-11-06 04:26:07 Merged With [facility] 1.11 mg/dL ([facility]) Result panel 1449 Glomerular filtration rate (GFR) estimation 2024-11-06 04:26:07 Merged With [facility] 58 mL/min ( missing) Result panel 1450 BUN/creatinine ratio 2024-11-06 04:26:07 Merged With [facility] 33. 3 (missing) (missing) Result panel 1451 Glucose [Mass/volume] in Serum or Plasma 2024-11-06 04:26:07 Merged With [facility] 144 mg/dL ([facility]) Result panel 1452 Calcium [Mass/volume] in Serum or Plasma 2024-11-06 04:26:07 Merged With [facility] 10.8 mg/dL ([facility]) Result panel 1453 White blood cell count 2024-11-06 04:26:07 Merged With [facility] 1 1.9 X10^3/uL (missing) Result panel 1454 Red blood cell count 2024-11-06 04:26:07 Merged With [facility] 4.9 5 X10^6/uL (missing) Result panel 1455 Hemoglobin 2024-11-06 04:26:07 Merged With [facility] 16.4 g/d L (missing) Result panel 1456 Hematocrit 2024-11-06 04:26:07 Merged With [facility] 49.0 % (missing) Result panel 1457 MCV (mean corpuscular volume ) determination 2024-11-06 04:26:07 Merged With [facility] 99.0 fL (mis sing) Result panel 1458 Mean corpuscular hemoglobin (MCH) determination 2024-11-06 04:26:07 Merged With [facility] 33.2 PG (missing) Result panel 1459 Mean corpuscular hemoglobin concentration (MCHC) determination 2024-11-06 04:26:07 Merged With [facility] 33.5 % (mis sing) Result panel 1460 Red cell distribution width determination 2024-11-06 04:26:07 Merged With [facility] 16.2 % (mis sing) Result panel 1461 Platelet count 2024-11-06 04:26:07 Merged With [facility] 216 X10^3/uL (missing) Result panel 1462 Automated neutrophil % 2024-11-06 04:26:07 Merged With [facility] 9 2.1 % (missing) Result panel 1463 Automated lymphocyte % 2024-11-06 04:26:07 Merged With [facility] 4 .7 % (missing) Result panel 1464 Automated monocyte % 2024-11-06 04:26:07 Merged With [facility] 3.0 % (missing) Result panel 1465 Automated eosinophil % 2024-11-06 04:26:07 Merged With [facility] 0 .0 % (missing) Result panel 1466 Automated basophil % 2024-11-06 04:26:07 Merged With [facility] 0.2 % (missing) Result panel 1467 Absolute neutrophil count 2024-11-06 04:26:07 [facility] l [address]76 /uL (missing) Result panel 1468 Absolute lymphocyte count 2024-11-06 04:[facility] /[facility] ([facility] Result panel 1469 Automated blood monocyte count 2024-11-06 04:26:07 [facility] sp[facility] 400 /uL (missing) Result panel 1470 Automated eosinophil count 2024-11-06 04:26:07 [facility] 0 /uL (missing) Result panel 1471 Automated basophil count 2024-11-06 04:26:07 [facility] 0 /uL (missing) Result panel 1472 Sodium [Moles/volume] in Serum or Plasma 2024-11-06 04:26:07 Merged With [facility] 140 mmol/L ([facility]) Result panel 1473 Potassium [Moles/volume] in Serum or Plasma 2024-11-06 04:26:07 Merged [facility] 3.7 mmol/L ([facility]) Result panel 1474 Chloride [Moles/volume] in Serum or Plasma 2024-11-06 04:26:07 Merged [facility] 97 mmol/L ([facility]) Result panel 1475 Carbon dioxide, total [Moles/volume] in Serum or Plasma 2024-11-06 04:26:07 Merged With [facility] 32 mmol/L ([facility]) Result panel 1476 Urea nitrogen [Mass/volume] in Serum or Plasma 2024-11-06 04:26:07 Merged [facility] 37 mg/dL ([facility]) Result panel 1477 Creatinine [Mass/volume] in Serum or Plasma 2024-11-06 04:26:07 Merged With [facility] 1.11 mg/dL ([facility]) Result panel 1478 Glomerular filtration rate (GFR) estimation 2024-11-06 04:26:07 Merged With [facility] 58 mL/min ( missing) Result panel 1479 BUN/creatinine ratio 2024-11-06 04:26:07 Merged With [facility] 33. 3 (missing) (missing) Result panel 1480 Glucose [Mass/volume] in Serum or Plasma 2024-11-06 04:26:07 Merged With [facility] 144 mg/dL (m issing) Result panel 1481 Calcium [Mass/volume] in Serum or Plasma 2024-11-06 04:26:07 Merged With [facility] 10.8 mg/dL ([facility]) Result panel 1482 White blood cell count 2024-11-06 04:26:07 Merged With [facility] 1 1.9 X10^3/uL (missing) Result panel 1483 Red blood cell count 2024-11-06 04:26:07 Merged With [facility] 4.9 5 X10^6/uL (missing) Result panel 1484 Hemoglobin 2024-11-06 04:26:07 Merged With [facility] 16.4 g/d L (missing) Result panel 1485 Hematocrit 2024-11-06 04:26:07 Merged With [facility] 49.0 % (missing) Result panel 1486 MCV (mean corpuscular volume ) determination 2024-11-06 04:26:07 Merged With [facility] 99.0 fL (mis sing) Result panel 1487 Mean corpuscular hemoglobin (MCH) determination 2024-11-06 04:26:07 Merged With [facility] 33.2 PG (missing) Result panel 1488 Mean corpuscular hemoglobin concentration (MCHC) determination 2024-11-06 04:26:07 Merged With [facility] 33.5 % (mis sing) Result panel 1489 Red cell distribution width determination 2024-11-06 04:26:07 Merged With [facility] 16.2 % (mis sing) Result panel 1490 Platelet count 2024-11-06 04:26:07 Merged With [facility] 216 X10^3/uL (missing) Result panel 1491 Automated neutrophil % 2024-11-06 04:26:07 Merged With [facility] 9 2.1 % (missing) Result panel 1492 Automated lymphocyte % 2024-11-06 04:26:07 Merged With [facility] 4 .7 % (missing) Result panel 1493 Automated monocyte % 2024-11-06 04:26:07 Merged With [facility] 3.0 % (missing) Result panel 1494 Automated eosinophil % 2024-11-06 04:26:07 Merged With [facility] 0 .0 % (missing) Result panel 1495 Automated basophil % 2024-11-06 04:26:07 Merged With [facility] 0.2 % (missing) Result panel 1496 Absolute neutrophil count 2024-11-06 04:26[facility]07 [facility] [address] [facility] ([facility] Result panel 1497 Absolute lymphocyte count 2024-11-06 04:[facility] 600 /uL (missing) Result panel 1498 Automated blood monocyte count 2024-11-06 04:26:07 [facility] spital 400 /uL (missing) Result panel 1499 Automated eosinophil count 2024-11-06 04:26[facility]07 [facility] ([facility] Result panel 1500 Automated basophil count 2024-11-06 04:26:07 Merged With [facility] 0 /uL (missing) Result panel 1501 Sodium [Moles/volume] in Serum or Plasma 2024-11-06 04:26:07 Merged With [facility] 140 mmol/L ([facility]) Result panel 1502 Potassium [Moles/volume] in Serum or Plasma 2024-11-06 04:26:07 Merged With [facility] 3.7 mmol/L ([facility]) Result panel 1503 Chloride [Moles/volume] in Serum or Plasma 2024-11-06 04:26:07 Merged With [facility] 97 mmol/L ([facility]) Result panel 1504 Carbon dioxide, total [Moles/volume] in Serum or Plasma 2024-11-06 04:26:07 Merged With [facility] 32 mmol/L ([facility]) Result panel 1505 Urea nitrogen [Mass/volume] in Serum or Plasma 2024-11-06 04:26:07 Merged With [facility] 37 mg/dL ([facility]) Result panel 1506 Creatinine [Mass/volume] in Serum or Plasma 2024-11-06 04:26:07 Merged With [facility] 1.11 mg/dL ([facility]) Result panel 1507 Glomerular filtration rate (GFR) estimation 2024-11-06 04:26:07 Merged With [facility] 58 mL/min ( missing) Result panel 1508 BUN/creatinine ratio 2024-11-06 04:26:07 Merged With [facility] 33. 3 (missing) (missing) Result panel 1509 Glucose [Mass/volume] in Serum or Plasma 2024-11-06 04:26:07 Merged With [facility] 144 mg/dL ([facility]) Result panel 1510 Calcium [Mass/volume] in Serum or Plasma 2024-11-06 04:26:07 Merged With [facility] 10.8 mg/dL ([facility]) Result panel 1511 White blood cell count 2024-11-06 04:26:07 Merged With [facility] 1 1.9 X10^3/uL (missing) Result panel 1512 Red blood cell count 2024-11-06 04:26:07 Merged With [facility] 4.9 5 X10^6/uL (missing) Result panel 1513 Hemoglobin 2024-11-06 04:26:07 Merged With [facility] 16.4 g/d L (missing) Result panel 1514 Hematocrit 2024-11-06 04:26:07 Merged With [facility] 49.0 % (missing) Result panel 1515 MCV (mean corpuscular volume ) determination 2024-11-06 04:26:07 Merged With [facility] 99.0 fL (mis sing) Result panel 1516 Mean corpuscular hemoglobin (MCH) determination 2024-11-06 04:26:07 Merged With [facility] 33.2 PG (missing) Result panel 1517 Mean corpuscular hemoglobin concentration (MCHC) determination 2024-11-06 04:26:07 Merged With [facility] 33.5 % (mis sing) Result panel 1518 Red cell distribution width determination 2024-11-06 04:26:07 Merged With [facility] 16.2 % (mis sing) Result panel 1519 Platelet count 2024-11-06 04:26:07 Merged With [facility] 216 X10^3/uL (missing) Result panel 1520 Automated neutrophil % 2024-11-06 04:26:07 Merged With [facility] 9 2.1 % (missing) Result panel 1521 Automated lymphocyte % 2024-11-06 04:26:07 Merged With [facility] 4 .7 % (missing) Result panel 1522 Automated monocyte % 2024-11-06 04:26:07 Merged With [facility] 3.0 % (missing) Result panel 1523 Automated eosinophil % 2024-11-06 04:26:07 Merged With [facility] 0 .0 % (missing) Result panel 1524 Automated basophil % 2024-11-06 04:26:07 Merged With [facility] 0.2 % (missing) Result panel 1525 Absolute neutrophil count 2024-11-06 04:26:07 [facility] l 10115 /uL (missing) Result panel 1526 Absolute lymphocyte count 2024-11-06 04:[facility]07 [facility] /[facility] ([facility]) Result panel 1527 Automated blood monocyte count 2024-11-06 04:26:07 [facility] spital 400 /uL (missing) Result panel 1528 Automated eosinophil count 2024-11-06 04:26:07 [facility] 0 /uL (missing) Result panel 1529 Automated basophil count 2024-11-06 04:26:07 Merged With [facility] 0 /uL (missing) Result panel 1530 Sodium [Moles/volume] in Serum or Plasma 2024-11-06 04:26:07 Merged With [facility] 140 mmol/L ( issing) Result panel 1531 Potassium [Moles/volume] in Serum or Plasma 2024-11-06 04:26:07 Merged With [facility] 3.7 mmol/L ([facility]) Result panel 1532 Chloride [Moles/volume] in Serum or Plasma 2024-11-06 04:26:07 Merged [facility] 97 mmol/L ([facility]) Result panel 1533 Carbon dioxide, total [Moles/volume] in Serum or Plasma 2024-11-06 04:26:07 Merged With [facility] 32 mmol/L ([facility]) Result panel 1534 Urea nitrogen [Mass/volume] in Serum or Plasma 2024-11-06 04:26:07 Merged With [facility] 37 mg/dL ([facility]) Result panel 1535 Creatinine [Mass/volume] in Serum or Plasma 2024-11-06 04:26:07 Merged With [facility] 1.11 mg/dL ([facility]) Result panel 1536 Glomerular filtration rate (GFR) estimation 2024-11-06 04:26:07 Merged With [facility] 58 mL/min ( missing) Result panel 1537 BUN/creatinine ratio 2024-11-06 04:26:07 Merged With [facility] 33. 3 (missing) (missing) Result panel 1538 Glucose [Mass/volume] in Serum or Plasma 2024-11-06 04:26:07 Merged With [facility] 144 mg/dL ([facility]) Result panel 1539 Calcium [Mass/volume] in Serum or Plasma 2024-11-06 04:26:07 Merged With [facility] 10.8 mg/dL ([facility]) Result panel 1540 Basophils Absolute Auto 2024-11-06 05:30 Merged With [facility] 0 /ul (missing ) Eosinophils Absolute Auto 2024-11-06 05:30 Merged With [facility] 0 /ul (missing ) Eosinophils Percent Auto 2024-11-06 05:30 Merged With [facility] 0.0 % (missing ) Basophils Percent Auto 2024-11-06 05:30 Merged With [facility] 0.2 % (missing ) Neutrophils Absolute Auto 2024-11-06 05:30 Merged With [facility] 03284 /ul (missing ) White Blood Cell Count 2024-11-06 05:30 Merged With [facility] 11.9 x10 3/ul Delta: 7 .0 on 11/05/24 Red Cell Distribution Width 2024-11-06 05:30 Merged With [facility] 16.2 % (m issing) Hemoglobin 2024-11-06 05:[address] [place] [address] 16.4 g/dl (missing) Platelet Count 2024-11-06 05:30 Merged With [facility] 216 x1 0 3/ul (missing) Monocytes Percent Auto 2024-11-06 05:30 Merged With [facility] 3.0 % (missing ) Mean Corpuscular Hemoglobin 2024-11-06 05:[address] [place] [address] 33.2 pg (missing ) Mean Corpuscular HGB Conc 2024-11-06 05:30 Merged With [facility] 33.5 % (missing ) Lymphocytes Percent Auto 2024-11-06 05:30 Merged With [facility] 4.7 % (missing ) Red Blood Cell Count 2024-11-06 05:[address] [place] [address] 4.95 x10 6/ul (missing) Monocytes Absolute Auto 2024-11-06 05:30 Merged With [facility] 400 /ul (missing ) Hematocrit 2024-11-06 05:[address] [place] [address] 49.0 % (missing) Lymphocytes Absolute Auto 2024-11-06 05:[address] [place] [address] 600 /ul (missing ) Neutrophils Percent Auto 2024-11-06 05:30 Merged With [facility] 92.1 % (missing ) Mean Corpuscular Volume 2024-11-06 05:[address] [place] [address] 99.0 fl (missing ) Result panel 1541 Creatinine 2024-11-06 05:49 Merged With [facility] 1.11 mg/dl (missing) Calcium 2024-11-06 05:49 Merged With [facility] 10.8 mg/dl (missing) Sodium 2024-11-06 05:49 Merged With [facility] 140 mmol/l (missing) Glucose 2024-11-06 05:49 Merged With [facility] 144 mg/dl (missing) Potassium 2024-11-06 05:49 Merged With [facility] 3.7 mmol/l (missing) Carbon Dioxide 2024-11-06 05:49 Merged With [facility] 32 mm ol/l (missing) BUN Creatinine Ratio 2024-11-06 05:49 Merged With [facility] 33.3 (missing) (missing ) Blood Urea Nitrogen 2024-11-06 05:49 Merged With [facility] 37 mg/dl (missing) Estimated Glomerular Filt Rate 2024-11-06 05:49 Merged With [facility] 58 ml/min Reported eGFR is based the CKD-EPI 2020 equation that does not use a race coefficient. An eGFR below 60 mL/min/1.73m2 suggests that some kidney damage has occurred, and indicative of chronic kidney disease if persisting greater than 3 months. An eGFR less than 15 is indicative of kidney failure. Chloride 2024-11-06 05:49 Merged With [facility] 97 mmol/l (missing) Result panel 1542 White blood cell count 2025-01-07 00:12:07 Merged With [facility] 6 .5 X10^3/uL (missing) Result panel 1543 Red blood cell count 2025-01-07 00:12:07 Merged With [facility] 4.7 9 X10^6/uL (missing) Result panel 1544 Hemoglobin 2025-01-07 00:12:07 Merged With [facility] 15.8 g/d L (missing) Result panel 1545 Hematocrit 2025-01-07 00:12:07 Merged With [facility] 47.6 % (missing) Result panel 1546 MCV (mean corpuscular volume ) determination 2025-01-07 00:12:07 Merged With [facility] 99.3 fL (mis sing) Result panel 1547 Mean corpuscular hemoglobin (MCH) determination 2025-01-07 00:12:07 Merged With [facility] 33.0 PG (missing) Result panel 1548 Mean corpuscular hemoglobin concentration (MCHC) determination 2025-01-07 00:12:07 Merged With [facility] 33.2 % (mis sing) Result panel 1549 Red cell distribution width determination 2025-01-07 00:12:07 Merged With [facility] 15.4 % (mis sing) Result panel 1550 Platelet count 2025-01-07 00:12:07 Merged With [facility] 219 X10^3/uL (missing) Result panel 1551 Automated neutrophil % 2025-01-07 00:12:07 Merged With [facility] 6 0.6 % (missing) Result panel 1552 Automated lymphocyte % 2025-01-07 00:12:07 Merged With [facility] 2 8.2 % (missing) Result panel 1553 Automated monocyte % 2025-01-07 00:12:07 Merged With [facility] 8.9 % (missing) Result panel 1554 Automated eosinophil % 2025-01-07 00:12:07 Merged With [facility] 1 .5 % (missing) Result panel 1555 Automated basophil % 2025-01-07 00:12:07 Merged With [facility] 0.8 % (missing) Result panel 1556 Absolute neutrophil count 2025-01-07 00:12:07 [facility] l 3900 /uL (missing) Result panel 1557 Absolute lymphocyte count 2025-01-07 00:12:07 [facility] l 1800 /uL (missing) Result panel 1558 Automated blood monocyte count 2025-01-07 00:12:07 [facility] spital 600 /uL (missing) Result panel 1559 Automated eosinophil count 2025-01-07 [facility] Result panel 1560 Automated basophil count 2025-01-07 00:12:07 [facility] 100 /uL (missing) Result panel 1561 Serum prothrombin time 2025-01-07 00:12:07 Merged With [facility] 1 3.5 SECONDS (missing) Result panel 1562 INR in Platelet poor plasma by Coagulation assay 2025-01-07 00:12:07 Merged With [facility] 1.2 (missing) (miss ing) Result panel 1563 Troponin I.cardiac [Mass/volume] in Serum or Plasma 2025-01-07 00:12:07 Merged With [facility] < 0.012 ng/mL (missing) (missing) Result panel 1564 Natriuretic peptide.B prohormone N-Terminal [Mass/volume] in Serum or Plasma 2025-01-07 00:12:07 Merged With [facility] 5020 pg/mL (miss ing) Result panel 1565 Sodium [Moles/volume] in Serum or Plasma 2025-01-07 00:12:07 Merged With [facility] 141 mmol/L ([facility]) Result panel 1566 Potassium [Moles/volume] in Serum or Plasma 2025-01-07 00:12:07 Merged With [facility] 4.1 mmol/L ([facility]) Result panel 1567 Chloride [Moles/volume] in Serum or Plasma 2025-01-07 00:12:07 Merged With [facility] 103 mmol/L ([facility]) Result panel 1568 Carbon dioxide, total [Moles/volume] in Serum or Plasma 2025-01-07 00:12:07 Merged With [facility] 29 mmol/L (miss ing) Result panel 1569 Urea nitrogen [Mass/volume] in Serum or Plasma 2025-01-07 00:12:07 [facility] 12 mg/dL ([facility] Result panel 1570 Creatinine [Mass/volume] in Serum or Plasma 2025-01-07 00:12:07 Merged With [facility] 0.91 mg/dL ([facility]) Result panel 1571 Glomerular filtration rate (GFR) estimation 2025-01-07 00:12:07 Merged With [facility] > 60 mL/min (missing) (missing) Result panel 1572 BUN/creatinine ratio 2025-01-07 00:12:07 Merged With [facility] 13. 2 (missing) (missing) Result panel 1573 Glucose [Mass/volume] in Serum or Plasma 2025-01-07 00:12:07 Merged With [facility] 144 mg/dL ([facility]) Result panel 1574 Lactate [Mass/volume] in Serum or Plasma 2025-01-07 00:12:07 Merged With [facility] 1.9 mmol/L ([facility]) Result panel 1575 Calcium [Mass/volume] in Serum or Plasma 2025-01-07 00:12:07 Merged With [facility] 9.7 mg/dL ([facility]) Result panel 1576 Bilirubin.total [Mass/volume ] in Serum or Plasma 2025-01-07 00:12:07 Merged With [facility] 0.9 mg/dL (missing) Result panel 1577 Aspartate aminotransferase [Enzymatic activity/volume] in Serum or Plasma 2025-01-07 00:12:07 Merged With [facility] 25 IU/L ([facility]) Result panel 1578 Alanine aminotransferase [Enzymatic activity/volume] in Serum or Plasma 2025-01-07 00:12:07 Merged With [facility] 15 IU/L ([facility]) Result panel 1579 Alkaline phosphatase [Enzyma tic activity/volume] in Serum or Plasma 2025-01-07 00:12:07 Merged With [facility] 75 U/L (miss ing) Result panel 1580 Protein total ser/plas 2025-01-07 00:12:07 Merged With [facility] 6 .9 g/dL (missing) Result panel 1581 Albumin [Mass/volume] in Ser um or Plasma 2025-01-07 00:12:07 Merged With [facility] 3.8 g/dL (miss ing) Result panel 1582 Globulin [Mass/volume] in Serum by calculation 2025-01-07 00:12:07 Merged With [facility] 3.1 g/dL (missing) Result panel 1583 Albumin/Globulin [Mass Ratio] in Serum or Plasma 2025-01-07 00:12:07 Merged With [facility] 1.2 (miss ing) (missing) Result panel 1584 Basophils Percent Auto 2025-01-07 00:31 Merged With [facility] 0.8 % (missing) Eosinophils Percent Auto 2025-01-07 00:31 Merged With [facility] 1. 5 % (missing) Basophils Absolute Auto 2025-01-07 00:31 Merged With [facility] 100 /ul (missing) Eosinophils Absolute Auto 2025-01-07 00:31 Merged With [facility] 1 00 /ul (missing) Red Cell Distribution Width 2025-01-07 00:31 Merged With [facility] 15.4 % (missing) Hemoglobin 2025-01-07 00:[address] [place] [address] 15.8 g/dl (missing) Lymphocytes Absolute Auto 2025-01-07 00:31 Merged With [facility] 1 800 /ul (missing) Platelet Count 2025-01-07 00:[address] [place] [address] 219 x1 0 3/ul (missing) Lymphocytes Percent Auto 2025-01-07 00:31 Merged With [facility] 28 .2 % (missing) Mean Corpuscular Hemoglobin 2025-01-07 00:[address] [place] [address] 33.0 pg (missing) Mean Corpuscular HGB Conc 2025-01-07 00:31 Merged With [facility] 3 3.2 % (missing) Neutrophils Absolute Auto 2025-01-07 00:31 Merged With [facility] 3 900 /ul (missing) Red Blood Cell Count 2025-01-07 00:31 Merged With [facility] 4.79 x10 6/ul (missing) Hematocrit 2025-01-07 00:31 Merged With [facility] 47.6 % (missing) White Blood Cell Count 2025-01-07 00:[address] [place] [address] 6.5 x10 3/ul (missing) Neutrophils Percent Auto 2025-01-07 00:31 Merged With [facility] 60 .6 % (missing) Monocytes Absolute Auto 2025-01-07 00:31 Merged With [facility] 600 /ul (missing) Monocytes Percent Auto 2025-01-07 00:[address] [place] [address] 8.9 % (missing) Mean Corpuscular Volume 2025-01-07 00:31 Merged With [facility] 99. 3 fl (missing) Result panel 1585 INR 2025-01-07 00:33 Merged With [facility] 1.2 (missin g) (missing) Prothrombin Time 2025-01-07 00:33 Merged With [facility] 13.5 seconds Comment If patient is on warfarin Result panel 1586 Estimated Glomerular Filt Rate 2025-01-07 00:41 Merged With [facility] > 60 ml/min Reported eGFR is based the CKD-EPI 2021 equation that does not use a race coefficient. An eGFR below 60 mL/min/1.73m2 suggests that some kidney damage has occurred, and indicative of chronic kidney disease if persisting greater than 3 months. An eGFR less than 15 is indicative of kidney failure. Bilirubin Total 2025-01-07 00:41 Merged With [facility] 0.9 mg/dl (missing) Creatinine 2025-01-07 00:41 Merged With [facility] 0.91 mg/dl (missing) Albumin Globulin Ratio 2025-01-07 00:41 Merged With [facility] 1.2 (missing) (missing) Lactate (Lactic Acid) 2025-01-07 00:41 Merged With [facility] 1.9 mmol/l Yes/No query for Sepsis Lactate Rule Y Chloride 2025-01-07 00:41 Merged With [facility] 103 mmol/l (missing) Blood Urea Nitrogen 2025-01-07 00:41 Merged With [facility] 12 mg/dl (missing) BUN Creatinine Ratio 2025-01-07 00:41 Merged With [facility] 13.2 (missing) (missing) Sodium 2025-01-07 00:41 Merged With [facility] 141 mmol/l Physician Instructions if pt has history of CHF Glucose 2025-01-07 00:41 Merged With [facility] 144 mg/dl (missing) Alanine Aminotransferase 2025-01-07 00:41 Merged With [facility] 15 iu/l (missing) Aspartate Aminotransferase 2025-01-07 00:41 Merged With [facility] 25 iu/l (missing) Carbon Dioxide 2025-01-07 00:41 Merged With [facility] 29 mmol/l (missing) Globulin 2025-01-07 00:41 Merged With [facility] 3.1 g/dl (missing) Albumin 2025-01-07 00:41 Merged With [facility] 3.8 g/dl (missing) Potassium 2025-01-07 00:41 Merged With [facility] 4.1 mmol/l (missing) Total Protein 2025-01-07 00:41 Merged With [facility] 6.9 g/dl (missing) Alkaline Phosphatase 2025-01-07 00:41 Merged With [facility] 75 u/l (missing) Calcium 2025-01-07 00:41 Merged With [facility] 9.7 mg/dl (missing) Result panel 1587 Estimated Glomerular Filt Rate 2025-01-07 00:48 Merged With [facility] > 60 ml/min Reported eGFR is based the CKD-EPI 1 equation that does not use a race coefficient. An eGFR below 60 mL/min/1.73m2 suggests that some kidney damage has occurred, and indicative of chronic kidney disease if persisting greater than 3 months. An eGFR less than 15 is indicative of kidney failure. Troponin I 2025-01-07 00:[address] [place] [address] < 0.012 ng/ml Physician Instructions if pt has history of CHF Ortho Troponin-I Recommended Upper Reference Range & Cutoff The 99th Percentile URL: 0.034 ng/mL AMI Diagnostic Cutoff: 0.120 ng/mL Bilirubin Total 2025-01-07 00:48 Merged With [facility] 0.9 mg/dl (missing) Creatinine 2025-01-07 00:[address] [place] [address] 0.91 mg/dl (missing) Albumin Globulin Ratio 2025-01-07 00:[address] [place] [address] 1.2 (missing) (missing) Chloride 2025-01-07 00:[address] [place] [address] 103 mmol/l (missing) Blood Urea Nitrogen 2025-01-07 00:[address] [place] [address] 12 mg/dl (missing) BUN Creatinine Ratio 2025-01-07 00:[address] [place] [address] 13.2 (missing) (missing) Sodium 2025-01-07 00:[address] [place] [address] 141 mmol/l Physician Instructions if pt has history of CHF Glucose 2025-01-07 00:[address] [place] [address] 144 mg/dl (missing) Alanine Aminotransferase 2025-01-07 00:[address] [place] [address] 15 iu/l (missing) Aspartate Aminotransferase 2025-01-07 00:[address] [place] [address] 25 iu/l (missing) Carbon Dioxide 2025-01-07 00:[address] [place] [address] 29 mmol/l (missing) Globulin 2025-01-07 00:[address] [place] [address] 3.1 g/dl (missing) Albumin 2025-01-07 00:[address] [place] [address] 3.8 g/dl (missing) Potassium 2025-01-07 00:[address] [place] [address] 4.1 mmol/l (missing) NT-proBNP (BNP-Adult 18+) 2025-01-07 00:[address] [place] [address] 5020 pg/ml Physician Instructions if pt has [...] or exclude HF. Total Protein 2025-01-07 00:48 Merged With [facility] 6.9 g/dl (missing) Alkaline Phosphatase 2025-01-07 00:48 Merged With [facility] 75 u/l (missing) Calcium 2025-01-07 00:48 Merged With [facility] 9.7 mg/dl (missing) Result panel 1588 Microscopic analysis of urine for red blood cells (RBC) 2025-01-07 00:49:07 Merged With [facility] 0-1/hpf (missing) (missing) Result panel 1589 Microscopic analysis of urine for white blood cells (WBC) 2025-01-07 00:49:07 Merged With [facility] 30-100/hpf (missing) (missing) Result panel 1590 Urine squamous epithelial cell detection 2025-01-07 00:49:07 Merged With [facility] 0-1 /hpf (missing) (miss ing) Result panel 1591 Squamous Epithelial Cell Urine 2025-01-07 01:12 Merged With [facility] 0-1 /HPF (missing) (missing ) RBC Urine 2025-01-07 01:12 Merged With [facility] 0-1/HPF (missin g) (missing) Urine Volume 2025-01-07 01:12 Merged With [facility] 10mL (spun) (m issing) Urine Source: Urine, Random Culture if Indicated? Y WBC Urine 2025-01-07 01:12 Merged With [facility] 30-100/HPF (sree ng) (missing) Bacteria Urine 2025-01-07 01:12 Merged With [facility] Many (>30) ( missing) (missing) Result panel 1592 [place] Count 2025-01-07 10:51 Merged With [facility] >100,000 cfu/ml (missing) ORGANISM 2025-01-07 10:51 Merged With [facility] GNBGram negative bacilli (missing) (missing) Action to follow 2025-01-07 10:51 Merged With [facility] Identification and Sensitivity to Follow (missing) (missing) Result panel 1593 Urine Culture 2025-01-08 07:13 Merged With [facility] (missing) (missing) (missing) [place] Count 2025-01-08 07:13 Merged With [facility] >100,000 cfu/ml (missing) Ciprofloxacin 2025-01-08 07:13 Merged With [facility] <=0.06 (missing) (missing) Ertapenem 2025-01-08 07:13 Merged With [facility] <=0.12 (missing) (missing) Levofloxacin 2025-01-08 07:13 Merged With [facility] <=0.12 (missing) (missing) Ceftriaxone 2025-01-08 07:13 Merged With [facility] <=0.25 (missing) (missing) Meropenem 2025-01-08 07:13 Merged With [facility] <=0.25 (missing) (missing) Gentamicin 2025-01-08 07:13 Merged With [facility] <=1 (missing) (missing) Tetracycline 2025-01-08 07:13 Merged With [facility] <=1 (missing) (missing) Nitrofurantoin 2025-01-08 07:13 Merged With [facility] <=16 (missing) (missing) Trimethoprim/Sulfa methoxazole 2025-01-08 07:13 Merged With [facility] <=20 (missing) (missing) Piperacillin/Tazob actam 2025-01-08 07:13 Merged With [facility] <=4 (missing) (missing) Ampicillin 2025-01-08 07:13 Merged With [facility] 16 (missing) (missing) Cefazolin 2025-01-08 07:13 Merged With [facility] 2 (missing) (missing) Amoxicillin/Clavul anate 2025-01-08 07:13 Merged With [facility] 4 (missing) (missing) ORGANISM 2025-01-08 07:13 Merged With [facility] ESCCOLEscherichia coli (missing) (missing) Urine Culture 2025-01-08 07:13 Merged With [facility] Isolates that test susceptible to tetracycline are (missing) (missing) Action to follow 2025-01-08 07:13 Merged With [facility] No Further Workup (missing) (missing) Urine Culture 2025-01-08 07:13 Merged With [facility] considered susceptible to doxycycline and minocycline. (missing) (missing) Result panel 1594 BILIRUBIN,TOTAL 2025-01-20 23:22 Merged With [facility] 0.8 mg/dl As of October 2022 testing method has changed, this may include reference ranges. CREATININE 2025-01-20 23:22 Merged With [facility] 1.1 mg/dl As of October 2022 testing method has changed, this may include reference ranges. ALBUMIN/GLOBULIN RATIO 2025-01-20 23:22 Merged With [facility] 1.2 (missing) (missing) MAGNESIUM 2025-01-20 23:[address] [place] [address] 1.7 mg/dl As of October 2022 testing method has changed, this may include reference ranges. ALT ALANINE AMINOTRANSFERASE 2025-01-20 23:22 Merged With [facility] 10 iu/l As of October 2022 testing method has changed, this may include reference ranges. CHLORIDE 2025-01-20 23:22 Merged With [facility] 102 mmol/l As of October 2022 testing method has changed, this may include reference ranges. BUN - BLOOD UREA NITROGEN 2025-01-20 23:22 Merged With [facility] 11 mg/dl As of October 2022 testing method has changed, this may include reference ranges. GLUCOSE 2025-01-20 23:22 Merged With [facility] 122 mg/dl As of October 2022 testing method has changed, this may include reference ranges. SODIUM 2025-01-20 23:22 Merged With [facility] 145 mmol/l (missing) AST ASPARTATE AMINOTRANSFERASE 2025-01-20 23:22 Merged With [facility] 15 iu/l As of October 2022 testing method has changed, this may include reference ranges. GLOBULIN 2025-01-20 23:22 Merged With [facility] 2.8 g/dl (missing) TROPONIN I HIGH SENSITIVITY 2025-01-20 23:22 Merged With [facility] 20.4 ng/l Critical result [facility] 20.4 pg/mL called to and read back by NURIS Sparrow RN at 20-Jan-2025 23:53 by [email or web address]. A HIGH SENSITIVITY TROPONIN result of >= 14.9 ng/L for females is considered POSITIVE. A HIGH SENSITIVITY TROPONIN result of >= 19.8 ng/L for males is considered POSITIVE. A HIGH SENSITIVITY TROPONIN result of >= 17.9 ng/L for unspecified is considered POSITIVE. ALBUMIN 2025-01-20 23:22 Merged With [facility] 3.4 g/dl As of October 2022 testing method has changed, this may include reference ranges. POTASSIUM 2025-01-20 23:22 Merged With [facility] 3.9 mmol/l As of October 2022 testing method has changed, this may include reference ranges. CARBON DIOXIDE - CO2 2025-01-20 23:22 Merged With [facility] 37 mmol/l As of October 2022 testing method has changed, this may include reference ranges. GFR - MDRD 2025-01-20 23:22 Merged With [facility] 51 (missing) The IDMS-traceable MDRD Study Equation has been validated extensively in and populations between the ages of 18 and 70 with impaired kidney function (eGFR < 60 mL/min/1.73m2) and has shown good performance for patients with all common causes of kidney disease. Although this equation has not been validated for patients older than 70, an MDRD-derived eGFR may still be a useful tool for providers caring for patients older than 70. References: http://www.nkdep. nih.gov/lab-evalu ation/gfr/creatin ine-stand ardization, last updated June 2011. ANION GAP 2025-01-20 23:22 Merged With [facility] 6.0 (missing) (missing) TOTAL PROTEIN 2025-01-20 23:22 Merged With [facility] 6.2 g/dl As of October 2022 testing method has changed, this may include reference ranges. ALKALINE PHOSPHATASE 2025-01-20 23:22 Merged With [facility] 68 iu/l As of October 2022 testing method has changed, this may include reference ranges. LIPASE 2025-01-20 23:22 Merged With [facility] 75 u/l As of October 2022 testing method has changed, this may include reference ranges. CALCIUM 2025-01-20 23:22 Merged With [facility] 9.3 mg/dl As of October 2022 testing method has changed, this may include reference ranges. Result panel 1595 UROBILINOGEN,URINE 2025-01-21 00:01 Merged With [facility] 0.2 (NORMAL) e.u./dl (missing) SPECIFIC GRAVITY,URINE 2025-01-21 00: Merged With [facility] 1.015 (missing) (missing) PH,URINE 2025-01-21 00: Merged With [facility] 7.0 ph (missing) CLARITY,URINE 2025-01-21 00: Merged With [facility] CLEAR (missing) (missing) LEUKOCYTE ESTERASE, URINE 2025-01-21 00:01 Merged With [facility] NEGATIVE (missing) (missing) NITRITE,URINE 2025-01-21 00: Merged With [facility] NEGATIVE (missing) (missing) OCCULT BLOOD,URINE 2025-01-21 00: Merged With [facility] NEGATIVE (missing) (missing) BILIRUBIN,URINE 2025-01-21 00: Merged With [facility] NEGATIVE (missing) Bilirubin can be influenced by color interference. Please correlate positive results with clinical presentation GLUCOSE, URINE (UA) 2025-01-21 00: Merged With [facility] NEGATIVE mg/dl (missing) KETONES,URINE (UA) 2025-01-21 00: Merged With [facility] NEGATIVE mg/dl (missing) UR CULTURE IF IND 2025-01-21 00: Merged With [facility] NOT INDICATED (missing) (missing) URINE MICROSCOPIC INDICATED? 2025-01-21: Merged With [facility] NOT INDICATED (missing) (missing) PROTEIN,URINE 2025-01-21: Merged With [facility] TRACE mg/dl (missing) COLOR,URINE 2025-01-21 00: Merged With [facility] YELLOW (missing) URINE CLEAN CATCH Result panel 1596 MAGNESIUM 2025-01-21 02:12 Merged With [facility] 1.7 mg/dl As of October 2022 testing method has changed, this may include reference ranges. TROPONIN I HIGH SENSITIVITY 2025-01-21 02:12 Merged With [facility] 20.8 ng/l Critical result [facility] 20.8 pg/mL called to and read back by PJ Galeas RN at 21-Jan-2025 02:38 by [email or web address]. A HIGH SENSITIVITY TROPONIN result of >= 14.9 ng/L for females is considered POSITIVE. A HIGH SENSITIVITY TROPONIN result of >= 19.8 ng/L for males is considered POSITIVE. A HIGH SENSITIVITY TROPONIN result of >= 17.9 ng/L for unspecified is considered POSITIVE. Social History date description facility 2024-11-04 00:00 Smokes tobacco daily (finding) Merged With [facility] 2024-11-05 00:00 Smokes tobacco daily (finding) Merged With [facility] 2024-11-16 00:00 Current some day smoker Merged With [facility] 2025-01-07 00:00 Smokes tobacco daily (finding) Merged With [facility] Vital Signs date measurement value units 2024-11-04 [...]
--- NOTE | 2025-01-21 06:07 | HISTORY & PHYSICAL EXAMINATION ---
Chief Complaint Chief Complaint Chief Complaint: SOB History of Present Illness History of Present Illness HPI Comment/Other: 59 y old female with PMH Atrial fib, CHF, COPD on home oxygen presented to the ER due to worsening shortness of breath for few days. Pt is on home oxygen. She stopped taking her meds 2 months ago including lasix. Denies AQUINO, fever, chest pain, Nausea , vomiting, diarrhea, constipation, symptoms Labs showed BNP > 800, elevated trop CXR showed CHF On presenation , pt had A fib with RVR In ER, pt was put on cardizem gtt Pt is admitted due to acute on chronic hypoxic respiratory failure due to CHF exacerbation, COPD exacerbation, Atrial fib with RVR, elevated trop Review of Systems Status of ROS: 10 or more systems reviewed and unremarkable except as noted in history and below PFSH Active Problems All Active Problems (Updated 01/21/25 @ 04:06 by Trent Guzman MD) Atrial fibrillation with rapid ventricular response (Chronic) Rhinovirus infection (Acute) Atrial fibrillation (Acute) History of GI bleed (Acute) Anemia (Acute) COPD exacerbation (Acute) Acute respiratory failure with hypoxia (Acute) CHF (congestive heart failure) (Acute) Epistaxis (Acute) Social History Social History Smoking Status: Unknown if ever smoked Number of Years Smoked: 42 How many cigarettes a day do you smoke? (20 cigarettes=1 Pk): 20 Patient requests smoking cessation consult: No Initiate information on smoking cessation: No Do you feel safe in your home environment?: Yes History of physical, verbal, emotional, or financial abuse?: No Frequency: Occasional POLST Patient has POLST: No Meds/Allgy Home Medications Ambulatory Orders Medication Instructions Recorded Confirmed albuterol sulfate 90 mcg/actuation 2 puff inhalation Q 4H PRN 02/08/22 04/05/22 breath activated powder Shortness Of Air/Wheezing inhaler,sensor (Proair Digihaler) amlodipine 10 mg tablet (Norvasc) 10 mg PO DAILY 02/0804/05/22 azithromycin 250 mg tablet 250 mg PO DAILY #4 tabs 04/05/22 chlorthalidone 25 mg tablet 12.5 mg PO DAILY 02/08/22 04/05/22 digoxin 250 mcg (0.25 mg) tablet 250 mcg PO DAILY 01/1204/05/22 (Lanoxin) furosemide 20 mg tablet 20 mg PO DAILY #5 tabs 02/0804/05/22 lisinopril 5 mg tablet 5 mg PO DAILY #30 tabs 02/0804/05/22 magnesium oxide 500 mg capsule 500 mg PO DAILY 2 04/05/22 metoprolol succinate 50 mg 50 mg PO BID 02/08/2204/05 tablet,extended release 24 hr multivitamin with folic acid 400 1 ea PO DAILY 2 04/05/22 mcg tablet (Thera) spironolactone 25 mg tablet 12.5 mg PO DAILY 02/08/22 04/05/22 (Aldactone) tiotropium bromide 18 mcg capsule 18 mcg inhalation DA RAY 02/08/22 04/05/22 with inhalation device (Spiriva with HandiHaler) Allergies Allergies Allergy/AdvReac Type Severity Reaction Status Date / Time Penicillins Allergy Unknown Verified 04/05/22 00:59 OTC nasal sprays AdvReac Respiratory Uncoded 04/05/22 00:59 Exam Exam Vital Signs: Vital Signs x48h Temp Pulse Resp BP Pulse Ox O2 Flow Rate 01/21/25 05:25 127 H 22 145/89 H 98 3 01/21/25 04:00 36.2 C L 125 H 19 158/106 H 96 4 01/21/25 03:30 127 H 30 H 135/98 H 98 3 01/21/25 02:44 107 H 22 165/124 H 98 01/21/25 02:21 118 H 20 115/78 100 01/21/25 01:00 156 H 23 167/98 H 90 L 01/21/25 00:25 116 H 23 118/92 H 90 L 3 01/21/25 00:11 122 H 01/20/25 23:50 143 H 24 3 01/20/25 23:32 140 H 29 H 133/90 H 94 3 01/20/25 22:43 36.7 C 140 H 27 H 153/104 H 96 3 Constitutional no apparent distress [facility] normocephalic Eyes PERRL Chest inspection of chest normal Respiratory breath sounds equal bilaterally Cardiovascular tachycardia Gastrointestinal abdomen normal to inspection Extremities normal to inspection Neurology no focal motor deficit noted Skin no rash Conclusion/Plan Problem List (1) Atrial fibrillation with rapid ventricular response: Plan: A: A fib with RVR Acute on chronic hypoxic respiratory failure Acute on chronic CHF exacerbation, unspecified COPD exacerbation Elevated troponin Plan: Admit in ICU Cont cardiac monitoring Seriel cardiac enzymes Echo TSH Start cardizem gtt As per pt, she used to take Eliquis but stopped 2 years ago due to GI bleed Oxygen via NC to keep Sao2 > 92% Start lasix 40 mg iv q12h Lisinopril 10 mg po daily monitor i/o, electrolytes Start solumedrol 40 mg iv q12h Duo nebs q4h prn DVT prophylaxic: SCD Full code Pt is admitted as inpatient as more than 2 midnight stay is expected Lab Results 01/20/25 23:22 01/20/25 23:22
[2025-01-21] MEDS: SODIUM CHLORIDE FLUSH 0.9% 10 ML SYRINGE IVP PRN (06:24)
[2025-01-21] MEDS: methylPREDNISolone SUCCINATE 40 MG/ML VIAL IVP SCH (06:24)
[2025-01-21] MEDS: FUROSEMIDE 40 MG/4 ML VIAL IVP SCH (08:52)
[2025-01-21] MEDS: APIXABAN 5 MG TABLET PO SCH (08:52)
[2025-01-21] MEDS: DIGOXIN 500 MCG/2 ML AMP IVP SCH ×2 (08:52→14:32)
[2025-01-21] MEDS: METOPROLOL 5 MG/5 ML VIAL IVP SCH (08:54)
[2025-01-21] MEDS: SODIUM CHLORIDE FLUSH 0.9% 10 ML SYRINGE IVP SCH (08:55)
[2025-01-21] MEDS ORDERED: FUROSEMIDE 40 MG/4 ML VIAL IVP SCH (09:00)
[2025-01-21] MEDS ORDERED: METOPROLOL 5 MG/5 ML VIAL IVP SCH (12:00)
--- NOTE | 2025-01-21 12:46 | PROVIDER PROGRESS NOTE ---
Subjective Subjective Subjective: Initially, patient was very somnolent, and difficult to arouse. However, when she does wake up, she is alert and oriented x 4, and is able to answer appropriately. She has a history of heart failure, although she does not know what her ejection fraction is. She follows up with cardiology in the outpatient setting Dr. Lavern Clemente. Her PCP is Dr. Chung Mcdonald at [place]. She states that she stopped taking her Lasix for maybe 3 weeks to 2 months. By the time she gets to the bathroom, she has soiled herself, which is causing her to wear diapers, and get diaper rashes, which she finds frustrating. She does wear oxygen at home, and normally wears about 3 L. She has a history of COPD as well, and is actively smoking. Is unclear if she has been taking her home meds regularly. She has a long history of atrial fibrillation. Her floating derrick operator advised her to stop her Eliquis after a life-threatening bleeding episode where her hemoglobin was 3. She was then restarted on it, and then developed some epistaxis, and was advised to stop it indefinitely. Unclear if she has had a discussion about the Watchman device, or if she would be a candidate for it. Diet: Cardiac diet, with fluid restriction of 1500 cc DVT: Lovenox subcu Dispo: Home versus SNF, pending clinical course. Code: Full code, does not want to fill out POLST at this time Current Medications Current Medications Current Medications: Current Medications Generic Name Dose Route Start Last Admin Trade Name Freq PRN Reason Stop Dose Admin Albuterol/Ipratropium 3 ml 01/21/25 05:34 Ipratropium/Albuterol 3 Ml Neb INH Q4HR PRN Wheezing Apixaban 5 mg 01/21/25 09:00 Apixaban 5 Mg Tablet PO BID DEBBIE Digoxin 250 mcg 01/21/25 09:00 Digoxin 500 Mcg/2 Ml Amp IVP DAILY DEBBIE Furosemide 40 mg 01/21/25 08:00 Furosemide 40 Mg/4 Ml Vial IVP BIDDIURETIC DEBBIE Diltiazem HCl 125 mg/ Dextrose 125 mls @ 5 mls/hr 01/21/25 06:00 01/21/25 06:55 IV 15 mg/hr .Q25H DEBBIE 15 mls/hr Protocol Titration 5 MG/HR Lisinopril 10 mg 01/21/25 09:00 Lisinopril 5 Mg Tablet PO DAILY DEBBIE Methylprednisolone 40 mg 01/21/25 06:00 01/21/25 06:24 Methylprednisolone Succinate 40 Mg/Ml Vial IVP 40 mg Q12H DEBBIE Administration Metoprolol Tartrate 5 mg 01/21/25 12:00 Metoprolol 5 Mg/5 Ml Vial IVP Q6HR DEBBIE Sodium Chloride 10 ml 01/21/25 09:00 Sodium Chloride Flush 0.9% 10 Ml Syringe IVP 0100,0900,1700 DEBBIE Sodium Chloride 10 ml 01/21/25 06:15 01/21/25 06:24 Sodium Chloride Flush 0.9% 10 Ml Syringe IVP 10 ml PRN PRN Administration NEEDED PER PROVIDER ORDERS Objective Vital Signs/Intake & Output Reviewed Vital Signs: Yes Vital Signs: Vital Signs x48h Temp Pulse Pulse Resp BP BP Pulse Ox 01/21/25 06:56 98.6 F 103 H 16 136/107 H 92 01/21/25 06:55 120 H 17 136/109 H 91 L 01/21/25 06:45 114 H 24 155/103 H 92 01/21/25 06:40 116 H 16 133/88 H 92 01/21/25 06:38 114 H 27 H 138/105 H 94 01/21/25 06:35 115 H 21 148/103 H 92 01/21/25 06:33 01/21/25 06:31 113 H 19 118/89 88 L 01/21/25 06:25 107 H 26 H 91/75 86 L 01/21/25 06:16 136 H 17 108/74 91 L 01/21/25 06:16 150 H 21 91 L 01/21/25 06:15 134 H 25 H 91 L 01/21/25 06:10 125 H 25 H 93 01/21/25 06:09 130 H 20 01/21/25 06:07 107 H 20 134/87 H 90 L 01/21/25 05:40 110 H 22 147/78 H 90 L 01/21/25 05:25 127 H 22 145/89 H 98 01/21/25 05:00 137 H 20 156/89 H 93 01/21/25 04:00 97.2 F L 125 H 19 158/106 H 96 01/21/25 03:30 127 H 30 H 135/98 H 98 01/21/25 02:44 107 H 22 165/124 H 98 01/21/25 02:21 118 H 20 115/78 100 01/21/25 01:00 156 H 23 167/98 H 90 L 01/21/25 00:25 116 H 23 118/92 H 90 L O2 Flow Rate 01/21/25 06:56 5 01/21/25 06:55 01/21/25 06:45 01/21/25 06:40 01/21/25 06:38 01/21/25 06:35 01/21/25 06:33 3 01/21/25 06:31 01/21/25 06:25 01/21/25 06:16 01/21/25 06:16 01/21/25 06:15 01/21/25 06:10 01/21/25 06:09 01/21/25 06:07 3 01/21/25 05:40 3 01/21/25 05:25 3 01/21/25 05:00 3 01/21/25 04:00 4 01/21/25 03:30 3 01/21/25 02:44 01/21/25 02:21 01/21/25 01:00 01/21/25 00:25 3 Intake & Output: Intake & Output 01/18/25 01/19/25 01/20/25 01/21/25 23:59 23:59 23:59 23:59 Intake Total 6 / 6 Output Total 1300 / 1300 Balance -1294 / -1294 Weight (kg) 150 kg 134 kg Objective General Appearance: positive No acute distress and Lethargic; negative Anxious Eyes Bilateral: positive Normal inspection, PERRL and EOMI ENT: positive ENT inspection nml, Pharynx nml and No signs of dehydration Neck: positive Nml inspection, Thyroid nml and No JVD Respiratory: positive Chest non-tender, No respiratory distress and Rales (Bibasilar crackles noted; mild expiratory wheezing noted); negative Wheezes or Rhonchi Cardiovascular: positive No murmur, No gallop, Irregularly irregular and Tachycardia; negative Systolic murmur Abdomen: positive Non-tender, No organomegaly and No distention; negative Guarding or Splenomegaly Back: positive Nml inspection; negative CVA tenderness (R) or CVA tenderness (L) Skin: positive Color nml, No rash, Warm and Dry Extremities: positive Non-tender, Full ROM, Nml appearance and Pedal edema (mild 1-2+) Neurologic/Psychiatric: positive Oriented x3, Motor nml and Mood/affect nml Lab Results 01/20/25 23:22 01/20/25 23:22 Other Labs: Lab Results x24hrs 01/21/25 01/21/25 01/21/25 Range/Units 05:38 02:12 00:01 WBC (4.8-10.8) x10^3/uL RBC (4.20-5.40) 10^6/uL Hgb (12.0-16.0) g/dL Hct (37.0-47.0) % MCV (81.0-99.0) fL MCH (27.0-31.0) pg MCHC (32.0-36.0) g/dL RDW (12.0-15.0) % Plt Count (130-450) 10^3/uL MPV (7.9-10.8) fL Neut # (Auto) (1.5-6.6) 10^3/uL Lymph # (Auto) (1.5-3.5) 10^3/uL [place] # (Auto) (0.0-1.0) 10^3/uL Eos # (Auto) (0.0-0.7) 10^3/uL Baso # (Auto) (0.0-0.1) 10^3/uL Absolute Nucleated RBC x10^3/uL Nucleated RBC % /100WBC Sodium (135-145) mmol/L Potassium (3.5-4.5) mmol/L Chloride (101-111) mmol/L Carbon Dioxide (21-32) mmol/L Anion Gap (6-13) BUN (6-20) mg/dL Creatinine (0.6-1.3) mg/dL Estimated GFR (MDRD) (>89) Glucose (74-104) mg/dL Calcium (8.5-10.3) mg/dL Magnesium 1.7 (1.7-2.3) mg/dL Total Bilirubin (0.2-1.0) mg/dL AST (10-42) IU/L ALT (10-60) IU/L Alkaline Phosphatase (42-121) IU/L Troponin I High Sens 20.5 H* 20.8 H* (2.3-14.8) ng/L B-Natriuretic Peptide (5-100) pg/mL Total Protein (6.4-8.9) g/dL Albumin (3.2-5.5) g/dL Globulin (2.1-4.2) g/dL Albumin/Globulin Ratio (1.0-2.2) Lipase (11-82) U/L TSH 2.16 (0.34-5.60) uIU/mL Urine Color YELLOW Urine Clarity CLEAR (CLEAR) Urine pH 7.0 (5.0-7.5) PH Ur Specific [place] 1.015 (1.002-1.030) Urine Protein TRACE (NEGATIVE) mg/dL Urine Glucose (UA) NEGATIVE (NEGATIVE) mg/dL Urine Ketones NEGATIVE (NEGATIVE) mg/dL Urine Occult Blood NEGATIVE (NEGATIVE) Urine Nitrite NEGATIVE (NEGATIVE) Urine Bilirubin NEGATIVE (NEGATIVE) Urine Urobilinogen 0.2 (NORMAL) (NORMAL) E.U./dL Ur Leukocyte Esterase NEGATIVE (NEGATIVE) Ur Microscopic Review NOT INDICATED Urine Culture Comments NOT INDICATED 01/20/25 Range/Units 23:22 WBC 9.7 (4.8-10.8) x10^3/uL RBC 4.91 (4.20-5.40) 10^6/uL Hgb 15.6 (12.0-16.0) g/dL Hct 51.7 H (37.0-47.0) % MCV 105.3 H (81.0-99.0) fL MCH 31.8 H (27.0-31.0) pg MCHC 30.2 L (32.0-36.0) g/dL RDW 14.8 (12.0-15.0) % Plt Count 202 (130-450) 10^3/uL MPV 10.0 (7.9-10.8) fL Neut # (Auto) 7.4 H (1.5-6.6) 10^3/uL Lymph # (Auto) 1.4 L (1.5-3.5) 10^3/uL [place] # (Auto) 0.8 (0.0-1.0) 10^3/uL Eos # (Auto) 0.1 (0.0-0.7) 10^3/uL Baso # (Auto) 0.0 (0.0-0.1) 10^3/uL Absolute Nucleated RBC 0.00 x10^3/uL Nucleated RBC % 0.0 /100WBC Sodium 145 (135-145) mmol/L Potassium 3.9 (3.5-4.5) mmol/L Chloride 102 (101-111) mmol/L Carbon Dioxide 37 H (21-32) mmol/L Anion Gap 6.0 (6-13) BUN 11 (6-20) mg/dL Creatinine 1.1 (0.6-1.3) mg/dL Estimated GFR (MDRD) 51 L (>89) Glucose 122 H (74-104) mg/dL Calcium 9.3 (8.5-10.3) mg/dL Magnesium 1.7 (1.7-2.3) mg/dL Total Bilirubin 0.8 (0.2-1.0) mg/dL AST 15 (10-42) IU/L ALT 10 (10-60) IU/L Alkaline Phosphatase 68 (42-121) IU/L Troponin I High Sens 20.4 H* (2.3-14.8) ng/L B-Natriuretic Peptide 845 H (5-100) pg/mL Total Protein 6.2 L (6.4-8.9) g/dL Albumin 3.4 (3.2-5.5) g/dL Globulin 2.8 (2.1-4.2) g/dL Albumin/Globulin Ratio 1.2 (1.0-2.2) Lipase 75 (11-82) U/L TSH (0.34-5.60) uIU/mL Urine Color Urine Clarity (CLEAR) Urine pH (5.0-7.5) PH Ur Specific [place] (1.002-1.030) Urine Protein (NEGATIVE) mg/dL Urine Glucose (UA) (NEGATIVE) mg/dL Urine Ketones (NEGATIVE) mg/dL Urine Occult Blood (NEGATIVE) Urine Nitrite (NEGATIVE) Urine Bilirubin (NEGATIVE) Urine Urobilinogen (NORMAL) E.U./dL Ur Leukocyte Esterase (NEGATIVE) Ur Microscopic Review Urine Culture Comments Diagnostic Imaging Diagnostic Imaging Results: positive Final report reviewed Assessment/Plan Problem List (1) Atrial fibrillation with rapid ventricular response: Impression: Patient presents with atrial fibrillation with rapid ventricular response. Her heart rate was as high as 156. She was started on a Cardizem drip, and there was improvement to 90-110. She has a history of heart failure, unknown ejection fraction. However, she is on GDMT in the outpatient setting, which likely indicates reduced ejection fraction. Have requested records from her floating derrick operator, Dr. Lavern Clemente. Repeat ECHO ordered, pending final read as well. With likely reduced ejection fraction, patient should not be on Cardizem drip due to negative inotropic effects, which may lead to worsening of CHF exacerbation. Will try to wean off today. Continue home oral metoprolol, supplemented with IV metoprolol. Loaded with digoxin, 250mcg every 6 hours. Will recheck levels in A.M. to ensure there is no toxicity. Continue IV Lasix 40 mg BID. Continue cardiac diet with fluid restriction, strict [id number], daily weights. (2) Acute on chronic hypoxic respiratory failure: Impression: At baseline, due to her COPD, patient wears 3 L of oxygen at home. Currently requiring 5 L. Aim for goal oxygen saturation of 88 to 92%. Wean down as tolerated. Not an active exacerbation of COPD at this time. Continue DuoNeb scheduled, will DC Solu-Medrol. (3) Rhinovirus infection: Impression: Likely contributing to worsening respiratory status. Continue supportive treatment as able. (4) CHF exacerbation: Impression: See above. Qualifiers: Heart failure type: unspecified Qualified Code(s): I50.9 - Heart failure, unspecified (5) COPD (chronic obstructive pulmonary disease): Impression: See above. On home 3 L of oxygen. Qualifiers: COPD type: unspecified COPD Qualified Code(s): J44.9 - Chronic obstructive pulmonary disease, unspecified
[2025-01-21] MEDS: NICOTINE 14 MG PATCH TOP SCH (13:50)
[2025-01-21] MEDS: SOLIFENACIN SUCCINATE 5 MG TABLET PO SCH (13:51)
[2025-01-21] MEDS: IPRATROPIUM/ALBUTEROL 3 ML NEB INH SCH (14:14)
[2025-01-21] MEDS ORDERED: METOPROLOL 5 MG/5 ML VIAL IVP PRN (19:45)
[2025-01-21] MEDS: METOPROLOL SUCCINATE 50 MG TABLET PO SCH (20:50)
[2025-01-22 04:55] LABS: HCT - HEMATOCRIT 51.9 % (37.0-47.0); HGB - HEMOGLOBIN 15.6 g/dL (12.0-16.0); MEAN PLATELET VOLUME 10.3 fL (7.9-10.8); NRBC ABSOLUTE COUNT (AUTO) 0.00 x10^3/uL; NUCLEATED RED BLOOD CELLS AUTO 0.0 /100WBC; PLT - PLATELET COUNT 229 10^3/uL (130-450); RED CELL DISTRIBUTION WIDTH 14.5 % (12.0-15.0)
[2025-01-22 04:57] LABS: VBG PH 7.451 (7.31-7.41)
[2025-01-22 05:12] LABS: PHOSPHORUS 2.7 mg/dL (2.5-5.0)
[2025-01-22 05:16] LABS: ALT ALANINE AMINOTRANSFERASE 9.0 IU/L (10-60); AST ASPARTATE AMINOTRANSFERASE 17.0 IU/L (10-42); BUN - BLOOD UREA NITROGEN 13.0 mg/dL (6-20); CARBON DIOXIDE - CO2 45.0 mmol/L (21-32); CREATININE 0.8 mg/dL (0.6-1.3); GFR - MDRD 74.0 (>89)
[2025-01-22] MEDS: MAGNESIUM SULFATE 2 GRAM 2 GM/50 ML BAG IV SCH (06:23)
[2025-01-22] MEDS: POTASSIUM CHLORIDE 20 MEQ/15 ML UDC PO ONE (07:45)
[2025-01-22 07:53] LABS: ABG BASE EXCESS 25.7 mmol/L (-2.0-3.0); ABG HCO3 50.0 mmol/L (22.0-26.0); ABG OXYGEN SATURATION 100 % (95-98); ABG PH 7.44 (7.35-7.45); ABG PO2 98 mmHg (83-108)
[2025-01-22 07:57] LABS: ABG PCO2 73 mmHg (34-45)
[2025-01-22 07:58] LABS: ABG TCO2 52.3 mmol/L (21.0-29.0)
[2025-01-22 08:07] LABS: VBG BASE EXCESS 23.8 mmol/L (-2 - +2); VBG PCO2 71.0 mmHg (41-51); VBG PH 7.436 (7.31-7.41); VBG PO2 74.7 mmHg (25-47); VBG TOTAL CO2 50.4 mmol/L (24-29)
[2025-01-22] MEDS ORDERED: FUROSEMIDE 40 MG/4 ML VIAL IVP SCH (09:00)
[2025-01-22] MEDS: ENOXAPARIN 40 MG/0.4 ML SYRINGE SUBQ SCH (09:06)
[2025-01-22] MEDS: MULTIVITAMIN TABLET PO SCH (09:07)
--- NOTE | 2025-01-22 09:31 | PROVIDER PROGRESS NOTE ---
Subjective Subjective Subjective: Patient is a 59-year-old female with a history of heart failure with unknown ejection fraction, COPD on 3 to 4 L of oxygen at home who presented with dyspnea. She was found to be in atrial fibrillation with rapid ventricular response. Treating her for CHF exacerbation. She has a history of heart failure, although she does not know what her ejection fraction is. She follows up with cardiology in the outpatient setting Dr. Lavern Clemente. Her PCP is Dr. Chung Mcdonald at [place]. She states that she stopped taking her Lasix for 3 weeks to 2 months. By the time she gets to the bathroom, she has soiled herself, which is causing her to wear diapers, and get diaper rashes, which she finds frustrating. She does wear oxygen at home, and normally wears about 3 L. She has a history of COPD as well, and is actively smoking. She has a long history of atrial fibrillation. Her poultry field service technician advised her to stop her Eliquis after a life-threatening bleeding episode where her hemoglobin was 3. She was then restarted on it, and then developed some epistaxis, and was advised to stop it indefinitely. Unclear if she has had a discussion about the Watchman device, or if she would be a candidate for it. This morning, she is doing much better. She feels less dyspneic. She has a mild cough. She states her wheezing has improved. She is conversive, alert and oriented x 4. Diet: Cardiac diet, with fluid restriction of 1500 cc DVT: Lovenox subcu Dispo: Home versus SNF, pending clinical course. Code: Full code, does not want to fill out POLST at this time Current Medications Current Medications Current Medications: Current Medications Generic Name Dose Route Start Last Admin Trade Name Freq PRN Reason Stop Dose Admin Albuterol/Ipratropium 3 ml 01/21/25 15:00 01/22/25 08:29 Ipratropium/Albuterol 3 Ml Neb INH 3 ml RTQID DEBBIE Administration Enoxaparin Sodium 40 mg 01/22/25 09:00 01/22/25 09:06 Enoxaparin 40 Mg/0.4 Ml Syringe SUBQ 40 mg DAILY DEBBIE Administration Furosemide 40 mg 01/23/25 09:00 Furosemide 40 Mg/4 Ml Vial IVP DAILY DEBBIE Lisinopril 10 mg 01/21/25 09:00 01/22/25 09:14 Lisinopril 5 Mg Tablet PO Not Given DAILY DEBBIE Metoprolol Succinate 100 mg 01/21/25 21:00 01/22/25 09:07 Metoprolol Succinate 50 Mg Tablet PO 100 mg BID DEBBIE Administration Metoprolol Tartrate 5 mg 01/21/25 19:45 Metoprolol 5 Mg/5 Ml Vial IVP Q6H PRN HR riley >120 Multivitamins 1 tab 01/22/25 09:00 01/22/25 09:07 Multivitamin Tablet PO 1 tab DAILY DEBBIE Administration Nicotine 1 patch 01/21/25 11:00 01/22/25 09:07 Nicotine 14 Mg Patch TOP 1 patch DAILY DEBBIE Administration Sodium Chloride 10 ml 01/21/25 09:00 01/22/25 09:07 Sodium Chloride Flush 0.9% 10 Ml Syringe IVP 10 ml 0100,0900,1700 DEBBIE Administration Sodium Chloride 10 ml 01/21/25 06:15 01/22/25 06:23 Sodium Chloride Flush 0.9% 10 Ml Syringe IVP 10 ml PRN PRN Administration NEEDED PER PROVIDER ORDERS Solifenacin 10 mg 01/21/25 13:00 01/22/25 09:08 Solifenacin Succinate 5 Mg Tablet PO 10 mg DAILY DEBBIE Administration Objective Vital Signs/Intake & Output Reviewed Vital Signs: Yes Vital Signs: Vital Signs x48h Temp Pulse Pulse Resp BP Pulse Ox O2 Flow Rate 01/22/25 09:00 102 H 17 107/70 93 5 01/22/25 08:32 98 22 5 01/22/25 08:00 95 23 132/72 H 92 5 01/22/25 07:00 97 18 131/86 H 94 5 01/22/25 06:00 96 20 139/82 H 93 5 01/22/25 05:00 105 H 25 H 134/71 H 92 3 01/22/25 04:30 98.6 F 01/22/25 04:00 104 H 21 138/97 H 96 3 01/22/25 03:04 102 H 01/22/25 02:55 109 H 17 129/91 H 96 3 01/22/25 02:00 100 26 H 135/85 H 89 L 3 Intake & Output: Intake & Output 01/19/25 01/20/25 01/21/2501/22/25 23:59 23:59 23:59 23:59 Intake Total 1287 / 1287 2009 Output Total 4500 / 4500 350 / 350 Balance -3213 / -3213 1660 / 1660 Weight (kg) 150 kg 134 kg 132.5 kg Objective General Appearance: positive No acute distress and Alert; negative Anxious Eyes Bilateral: positive Normal inspection, PERRL and EOMI ENT: positive ENT inspection nml, Pharynx nml and No signs of dehydration Neck: positive Nml inspection, Thyroid nml and No JVD Respiratory: positive Chest non-tender, No respiratory distress and Rales (Bibasilar crackles noted; mild expiratory wheezing noted); negative Wheezes or Rhonchi Cardiovascular: positive No murmur, No gallop, Irregularly irregular and Tachycardia; negative Systolic murmur Abdomen: positive Non-tender, No organomegaly and No distention; negative Guarding or Splenomegaly Back: positive Nml inspection; negative CVA tenderness (R) or CVA tenderness (L) Skin: positive Color nml, No rash, Warm and Dry Extremities: positive Non-tender, Full ROM, Nml appearance and Pedal edema (mild 1-2+) Neurologic/Psychiatric: positive Oriented x3, Motor nml and Mood/affect nml Lab Results 01/22/25 04:41 01/22/25 12:00 Other Labs: Lab Results x24hrs 01/22/25 01/22/25 01/22/25 Range/Units 08:00 07:25 04:41 WBC 12.5 H (4.8-10.8) x10^3/uL RBC 4.90 (4.20-5.40) 10^6/uL Hgb 15.6 (12.0-16.0) g/dL Hct 51.9 H (37.0-47.0) % MCV 105.9 H (81.0-99.0) fL MCH 31.8 H (27.0-31.0) pg MCHC 30.1 L (32.0-36.0) g/dL RDW 14.5 (12.0-15.0) % Plt Count 229 (130-450) 10^3/uL MPV 10.3 (7.9-10.8) fL Neut # (Auto) 10.4 H (1.5-6.6) 10^3/uL Lymph # (Auto) 0.9 L (1.5-3.5) 10^3/uL [place] # (Auto) 1.0 (0.0-1.0) 10^3/uL Eos # (Auto) 0.0 (0.0-0.7) 10^3/uL Baso # (Auto) 0.0 (0.0-0.1) 10^3/uL Absolute Nucleated RBC 0.00 x10^3/uL Nucleated RBC % 0.0 /100WBC Bld Gas Analysis Time 0745 Sample Site LEFT RADIAL ABG pH 7.44 (7.35-7.45) ABG pCO2 73 H* (34-45) mmHg ABG pO2 98 (83-108) mmHg ABG HCO3 50.0 H (22.0-26.0) mmol/L ABG Total CO2 52.3 H* (21.0-29.0) mmol/L ABG O2 Saturation 100 H (95-98) % ABG Base Excess 25.7 H (-2.0-3.0) mmol/L Gutierrez Test POSITIVE VBG pH 7.436 H 7.451 H (7.31-7.41) VBG pCO2 71.0 H (41-51) mmHg VBG pO2 74.7 H (25-47) mmHg VBG HCO3 48.2 H (23-28) mmol/L VBG Total CO2 50.4 H (24-29) mmol/L VBG O2 Saturation 97.0 H (60-80) % VBG Base Excess 23.8 H (-2 - +2) mmol/L Ionized Calcium 1.17 (1.09-1.30) mmol/L O2 Delivery Device OXYMASK O2 Liters/Min 5.00 LPM Sodium 144 (135-145) mmol/L Potassium 3.7 (3.5-4.5) mmol/L Chloride 95 L (101-111) mmol/L Carbon Dioxide 45 H* (21-32) mmol/L Anion Gap 4.0 L (6-13) BUN 13 (6-20) mg/dL Creatinine 0.8 (0.6-1.3) mg/dL Estimated GFR (MDRD) 74 L (>89) Glucose 113 H (74-104) mg/dL Calcium 9.0 (8.5-10.3) mg/dL Phosphorus 2.7 (2.5-5.0) mg/dL Magnesium 1.4 L (1.7-2.3) mg/dL Total Bilirubin 1.1 H (0.2-1.0) mg/dL AST 17 (10-42) IU/L ALT 9 L (10-60) IU/L Alkaline Phosphatase 67 (42-121) IU/L Total Protein 5.9 L (6.4-8.9) g/dL Albumin 3.2 (3.2-5.5) g/dL Globulin 2.7 (2.1-4.2) g/dL Albumin/Globulin Ratio 1.2 (1.0-2.2) Last Dose Date UNSPECIFIED Last Dose Time UNSPECIFIED Digoxin 2.2 ng/mL Diagnostic Imaging Diagnostic Imaging Results: positive Final report reviewed Assessment/Plan Problem List (1) Atrial fibrillation with rapid ventricular response: Impression: Resolved. Patient presents with atrial fibrillation with rapid ventricular response. Her heart rate was as high as 156. She was started on a Cardizem drip, and there was improvement to 90-110. She has a history of heart failure, unknown ejection fraction. However, she is on GDMT in the outpatient setting, which likely indicates reduced ejection fraction. Have requested records from her poultry field service technician, Dr. Lavern Clemente. Repeat ECHO ordered, pending final read as well. With likely reduced ejection fraction, patient should not be on Cardizem drip due to negative inotropic effects, which may lead to worsening of CHF exacerbation. Weaned off. Continue home oral metoprolol, supplemented with IV metoprolol as needed. Loaded with digoxin, 250mcg every 6 hours. This morning, her levels were greater than 1; digoxin was stopped. Historically, patient has not been on Eliquis. She has had 2 episodes of bleeding, and was advised by her poultry field service technician not to continue it. Advised to continue conversations with her poultry field service technician about Watchman procedure. (2) Acute on chronic hypoxic respiratory failure: Impression: At baseline, due to her COPD, patient wears 3 L of oxygen at home. Currently requiring 5 L. Aim for goal oxygen saturation of 88 to 92%. Wean down as tolerated. Not an active exacerbation of COPD at this time. Continue DuoNeb scheduled, Solu-medrol was discontinued. Patient received 2 doses of IV Lasix 40 mg yesterdayher urine output was about 5 L in the last 24 hours. Her weight has decreased from 134 kg 132.5 kg in 24 hours. She is breathing much more comfortably. Will decrease IV Lasix dose to 40 mg once a day. Overnight doctor did order 1 dose of Diamox. Not continued at this time. ABG was repeated this morning, which shows chronic respiratory acidosis with metabolic compensation, possibly with a superimposed metabolic alkalosis due to overdiuresis. Continue cardiac diet with fluid restriction, strict [id number], daily weights. (3) Rhinovirus infection: Impression: Likely contributing to worsening respiratory status. Continue supportive treatment as able. (4) CHF exacerbation: Impression: See above. Qualifiers: Heart failure type: unspecified Qualified Code(s): I50.9 - Heart failure, unspecified (5) COPD (chronic obstructive pulmonary disease): Impression: See above. On home 3-4 L of oxygen. Qualifiers: COPD type: unspecified COPD Qualified Code(s): J44.9 - Chronic obstructive pulmonary disease, unspecified (6) Generalized weakness: Impression: Patient has had continued and generalized weakness. PT evaluation has been ordered.
--- NOTE | 2025-01-22 14:25 | PHARMACY PROGRESS NOTE ---
Best Possible Medication History Admit Date and Time: 01/21/25 0521 Home Medications Medication Instructions Recorded Confirmed Type albuterol sulfate 90 mcg/actuation 2 puff inhalation Q 4H PRN 02/08/22 01/21/25 History breath activated powder Shortness Of Air/Wheezing inhaler,sensor (Proair Digihaler) multivitamin with folic acid 400 1 ea PO DAILY 2 01/21/25 History mcg tablet (Thera) tiotropium bromide 18 mcg capsule 18 mcg inhalation DA RAY 02/08/22 01/21/25 History with inhalation device (Spiriva with HandiHaler) metoprolol succinate 100 mg 100 mg PO BID 01/21/2504/05 History tablet,extended release 24 hr potassium chloride 10 mEq 10 meq PO DAILY 01/21/2504/05 History capsule,extended release tolterodine 4 mg capsule,extended 4 mg PO DAILY 01/21/25 History release 24 hr Processed by: Pharmacy Medications reviewed in ED?: No Medication History completed: Yes Patient Interview: Pt unable to participate (patient could not give specific dosing or which medications taking) Secondary Source(s): Pharmacy records and Insurance records (removed any non-prn medications without recent fill hx/would be out of for >2 months) [facility] Statement: As the person ultimately responsible for medication therapy, providers are able to order a medication from an existing home medication list in [facility] via the "Reconcile Routine" prior to Confirmation of that medication by administrative support specialist. Such practice is discouraged except when the physician, in their clinical judgment, deems that a medical need exists for a medication without regard to previous use.
--- NOTE | 2025-01-22 16:52 | PT Plan of Care ---
PT Inpatient Plan of Care DIAGNOSIS Diagnosis: a-fib with RVR; COPD exac.; rhinovirus; acute on chronic RF and CHF exac. Referring Provider: Wayne Rao Patient Status: Inpatient CHIEF COMPLAINT Chief Complaint: SOB and weakness Onset of Chief Complaint: RECYCLING ATTENDANT on 01/20/25 BALANCE/FUNCTIONAL RESULTS Sitting Balance: Good Standing Balance: Fair ASSESSMENT Assessment: The pt is a 59 y/o F who arrived to the ED on 01/20/25 due to worsening SOB and progressive weakness, she was hospitalized with a-fib with RVR, COPD exacerbation, rhinovirus, acute on chronic RF, and acute on chronic CHF exacerbation. Please see chart for complete medical hx. The pt was received resting comfortably sitting up in a recliner on 3L O2 via NC and presented today with mildly decreased B UE and LE strength, decreased activity tolerance, and limited standing balance which limited her tolerance during functional mobility. At this time the pt does not appear to require continued skilled PT intervention while in the acute setting and it is recommended that she DC home with therapy further strength and activity tolerance training once medically stable. This plan was discussed with the pt, she was in agreement with this. At the end of the session the pt was supine in bed with call light in reach and all needs met while RN was in the room. RN and MD updated on pt's status and DC rec, no goals will be set as this is an eval only. PATIENT/FAMILY GOALS Patient/Family Goals: To be able to get stronger PLAN Frequency: Evaluation only, no further P.T. DISCHARGE RECOMMENDATIONS Discharge Location: Previous Living Situation Support/Services Needed: Home Health P.T. Other Discharge Equipment: pt owns all recommended DME Transport Needs at Discharge: Personal vehicle
[2025-01-22] MEDS ORDERED: CALAMINE/ZINC OXIDE 177 ML BOTTLE TOP PRN (17:59)
[2025-01-22] MEDS ORDERED: MIN OIL/DIMETHICON/COCONUT OIL 92 GM TUBE TOP PRN (17:59)
[2025-01-22] MEDS ORDERED: COD LIVER OIL/ZINC OXIDE 113 GM TUBE TOP PRN (19:04)
[2025-01-23 04:54] LABS: VBG PH 7.513 (7.31-7.41)
[2025-01-23 05:07] LABS: PHOSPHORUS 3.7 mg/dL (2.5-5.0)
--- NOTE | 2025-01-23 07:52 | PROVIDER PROGRESS NOTE ---
Subjective Prog Note Date Prog Note Date: 01/23/25 Prog Note Time: 07:50 Subjective Subjective: Patient's RA 110 this morning. She continues on 5 L of oxygen with good saturations. Sleeping early this morning. Charted output of 1900 yesterday. 500 out this morning. Received IV Lasix x 1 yesterday morning. No basic labs yet this morning. VBG is concerning for alkalosis. Likely give 1-2 more dose of IV diuresis today if kidney function stable. May augment with acetazolamide. Current Medications Current Medications Current Medications: Current Medications Generic Name Dose Route Start Last Admin Trade Name Freq PRN Reason Stop Dose Admin Albuterol/Ipratropium 3 ml 01/21/25 15:00 01/23/25 07:31 Ipratropium/Albuterol 3 Ml Neb INH 3 ml RTQID DEBBIE Administration Enoxaparin Sodium 40 mg 01/22/25 09:00 01/22/25 09:06 Enoxaparin 40 Mg/0.4 Ml Syringe SUBQ 40 mg DAILY DEBBIE Administration Furosemide 40 mg 01/23/25 09:00 Furosemide 40 Mg/4 Ml Vial IVP DAILY DEBBIE Lisinopril 10 mg 01/21/25 09:00 01/22/25 09:14 Lisinopril 5 Mg Tablet PO Not Given DAILY DEBBIE Metoprolol Succinate 100 mg 01/21/25 21:00 01/22/25 21:04 Metoprolol Succinate 50 Mg Tablet PO 100 mg BID DEBBIE Administration Metoprolol Tartrate 5 mg 01/21/25 19:45 Metoprolol 5 Mg/5 Ml Vial IVP Q6H PRN HR riley >120 Mineral Oil 1 applic 01/22/25 17:59 Min Oil/Dimethicon/Coconut Oil 92 Gm Tube TOP PRN PRN Skin Care Multivitamins 1 tab 01/22/25 09:00 01/22/25 09:07 Multivitamin Tablet PO 1 tab DAILY DEBBIE Administration Nicotine 1 patch 01/21/25 11:00 01/22/25 09:07 Nicotine 14 Mg Patch TOP 1 patch DAILY DEBBIE Administration Sodium Chloride 10 ml 01/21/25 09:00 01/22/25 23:27 Sodium Chloride Flush 0.9% 10 Ml Syringe IVP 10 ml 0100,0900,1700 DEBBIE Administration Sodium Chloride 10 ml 01/21/25 06:15 01/22/25 06:23 Sodium Chloride Flush 0.9% 10 Ml Syringe IVP 10 ml PRN PRN Administration NEEDED PER PROVIDER ORDERS Solifenacin 10 mg 01/21/25 13:00 01/22/25 09:08 Solifenacin Succinate 5 Mg Tablet PO 10 mg DAILY DEBBIE Administration Zinc Oxide 113 gm 01/22/25 19:04 Cod Liver Oil/Zinc Oxide 113 Gm Tube TOP PRN PRN Skin Care Objective Vital Signs/Intake & Output Vital Signs: Vital Signs x48h Pulse Resp O2 Flow Rate 01/23/25 07:32 110 H 22 5 Intake & Output: Intake & Output 01/20/25 01/21/25 01/22/25 01/23/25 23:59 23:59 23:59 23:59 Intake Total 1287 / 1287 3150 / 3150 415 / 415 Output Total 4500 / 4500 1950 / 1950 500 / 500 Balance -3213 / -3213 1200 / 1200 -85 / -85 Weight (kg) 150 kg 134 kg 132.5 kg 130.5 kg Lab Results 01/22/25 04:41 01/22/25 12:00 Other Labs: Lab Results x24hrs 01/23/25 01/22/25 01/22/25 Range/Units 04:44 12:00 08:00 Bld Gas Analysis Time Sample Site ABG pH (7.35-7.45) ABG pCO2 (34-45) mmHg ABG pO2 (83-108) mmHg ABG HCO3 (22.0-26.0) mmol/L ABG Total CO2 (21.0-29.0) mmol/L ABG O2 Saturation (95-98) % ABG Base Excess (-2.0-3.0) mmol/L Gutierrez Test VBG pH 7.513 H 7.436 H (7.31-7.41) VBG pCO2 71.0 H (41-51) mmHg VBG pO2 74.7 H (25-47) mmHg VBG HCO3 48.2 H (23-28) mmol/L VBG Total CO2 50.4 H (24-29) mmol/L VBG O2 Saturation 97.0 H (60-80) % VBG Base Excess 23.8 H (-2 - +2) mmol/L Ionized Calcium 1.17 (1.09-1.30) mmol/L O2 Delivery Device O2 Liters/Min LPM Potassium 4.2 (3.5-4.5) mmol/L Phosphorus 3.7 (2.5-5.0) mg/dL Magnesium 2.0 2.4 H (1.7-2.3) mg/dL 01/22/25 Range/Units 07:25 Bld Gas Analysis Time 0745 Sample Site LEFT RADIAL ABG pH 7.44 (7.35-7.45) ABG pCO2 73 H* (34-45) mmHg ABG pO2 98 (83-108) mmHg ABG HCO3 50.0 H (22.0-26.0) mmol/L ABG Total CO2 52.3 H* (21.0-29.0) mmol/L ABG O2 Saturation 100 H (95-98) % ABG Base Excess 25.7 H (-2.0-3.0) mmol/L Gutierrez Test POSITIVE VBG pH (7.31-7.41) VBG pCO2 (41-51) mmHg VBG pO2 (25-47) mmHg VBG HCO3 (23-28) mmol/L VBG Total CO2 (24-29) mmol/L VBG O2 Saturation (60-80) % VBG Base Excess (-2 - +2) mmol/L Ionized Calcium (1.09-1.30) mmol/L O2 Delivery Device OXYMASK O2 Liters/Min 5.00 LPM Potassium (3.5-4.5) mmol/L Phosphorus (2.5-5.0) mg/dL Magnesium (1.7-2.3) mg/dL Assessment/Plan Problem List (1) Atrial fibrillation with rapid ventricular response: (2) Acute on chronic hypoxic respiratory failure: (3) Rhinovirus infection: (4) CHF exacerbation: Qualifiers: Heart failure type: unspecified Qualified Code(s): I50.9 - Heart failure, unspecified (5) COPD (chronic obstructive pulmonary disease): Qualifiers: COPD type: unspecified COPD Qualified Code(s): J44.9 - Chronic obstructive pulmonary disease, unspecified (6) Generalized weakness:
[2025-01-23 08:15] LABS: HCT - HEMATOCRIT 54.1 % (37.0-47.0); HGB - HEMOGLOBIN 16.0 g/dL (12.0-16.0); MEAN PLATELET VOLUME 10.1 fL (7.9-10.8); NRBC ABSOLUTE COUNT (AUTO) 0.00 x10^3/uL; NUCLEATED RED BLOOD CELLS AUTO 0.0 /100WBC; PLT - PLATELET COUNT 232 10^3/uL (130-450); RED CELL DISTRIBUTION WIDTH 14.7 % (12.0-15.0)
[2025-01-23] MEDS: FUROSEMIDE 40 MG/4 ML VIAL IVP SCH (08:26)
[2025-01-23 08:33] LABS: BUN - BLOOD UREA NITROGEN 13.0 mg/dL (6-20); CARBON DIOXIDE - CO2 43.0 mmol/L (21-32); CREATININE 0.9 mg/dL (0.6-1.3); GFR - MDRD 65.0 (>89)
[2025-01-23] MEDS: FUROSEMIDE 40 MG/4 ML VIAL IVP ONE (11:28)
--- NOTE | 2025-01-23 13:32 | Discharge Summary ---
"Discharge Summary Admit Date: 01/21/25 Discharge Date: 01/23/25 Discharging Provider: Jonny Hall Primary Care Provider: Kerrie Alvarado DO Code Status: Attempt Resuscitation Discharge Facility Name: Home DIAGNOSES Discharge Diagnoses with Status of Each Condition: Atrial fibrillation with RVR, resolved Suspect her RVR was likely triggered by decompensated heart failure. Improved with resolution of her heart failure exacerbation as below. She received digoxin load as well which may have contributed to improvement. Has not been continued on oral digoxin. 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 Lavern Clemente. - Follow-up with cardiology - Continue metoprolol - Needs to consider either resuming on anticoagulation (history of bleeding) versus Watchman Acute on chronic hypoxic respiratory failure, Resolved Patient has COPD and heart failure at baseline. She is on 3 L of oxygen continuously. She has been requiring 5-6 during this hospitalization. She was able to wean down to 3 by time of discharge with a goal saturation of 88 to 92% she is not dyspneic and able to ambulate and complete ADLs in the bathroom on this level of oxygen. She was not wheezing on arrival, suspect most of her hypoxemia was driven by CHF exacerbation. Has improved with diuresis. - COPD management as below - CHF management as below - Continue O2 supplementation HFrEF, Improved, chronic Patient presented In exacerbation. Suspect volume overloaded as she had stopped some of her home heart failure medications several weeks ago. She does not typically weigh herself at home. Was 134 kg on arrival. Decreased weight while she was here, limited by bed weights. She had metabolic alkalosis and worsened contraction alkalosis and received Diamox x 2. She does have some chronic compensated respiratory acidosis, but had a superimposed metabolic alkalosis necessitating acetazolamide - Discharged on Lasix and Aldactone - Pending final echo read - Follow-up with cardiology outpatient for further GDMT titration - Instructed patient to begin weighing herself daily - Discussed low-sodium diet with the patient extensively, she stated good understanding. - Will need repeat BMP in 1 to 2 weeks COPD, stable, chronic Patient with a history of COPD on 3 to 4 L continuous oxygen as above. On long- term maintenance and rescue inhalers. Suspect little of her presentation represented exacerbation of COPD. She was not wheezing. No increased cough or sputum production. -Continues home inhalers. Rhinovirus Found on viral respiratory panel, possibly contributing to above presentation. Supportive care continued. She is not having any fevers. No cough. Not in COPD exacerbation as above. Generalized weakness, improving Deconditioned with generalized weakness. PT is evaluated, and feels that she is appropriate for home health PT. This has been ordered at discharge - Continue home health PT HPI History of Present Illness: 59 y old female with PMH Atrial fib, CHF, COPD on home oxygen presented to the ER due to worsening shortness of breath for few days. Pt is on home oxygen. She stopped taking her meds 2 months ago including lasix. Denies AQUINO, fever, chest pain, Nausea , vomiting, diarrhea, constipation, symptoms Labs showed BNP > 800, elevated trop CXR showed CHF On presenation , pt had A fib with RVR In ER, pt was put on cardizem gtt Pt is admitted due to acute on chronic hypoxic respiratory failure due to CHF exacerbation, COPD exacerbation, Atrial fib with RVR, elevated trop CONSULTS | PROCEDURES Consultations: PT Procedures: Chest x-ray 01/20/2025 TTE from 01/21/2025, pending read HOSPITAL COURSE Hospital Course: Patient presented with acute on chronic hypoxemic respiratory failure. Requiring more oxygen than she does at baseline. Normally saturates between 88 and 92% on 3 L of oxygen continuously. Was requiring up to 5 to 6 L of oxygen at times during the hospitalization. Her BNP was profoundly elevated on arrival. She was started on IV diuresis and had good effect. Received 40 mg IV diuresis with desired effect. This was complicated by metabolic alkalosis and she received 2 doses of Diamox. Her creatinine remained stable without any kidney injury. She has been tolerating diuresis well. She divulges that she was not adherent to her home heart failure medications for several months prior to this admission. I am prescribing Aldactone and Lasix at discharge. I have encouraged her to continue on these diuretics until she can follow-up with her benzene washer operator. I have also instructed her to maintain a log of her weights and adhere to a strict sodium restricted diet. We discussed reading food labels to limit hidden sodium as she states she does not typically add salt to her food. She will need to follow-up with her primary care doctor in the next 1 to 2 weeks and have a basic metabolic panel checked. She will also bring a log of her weights. If she is maintaining weights and her electrolytes and creatinine have remained stable she can likely do this indefinitely until she can follow-up with cardiology for further titration of GDMT. Pending final read on her echocardiogram this admission. ALLERGIES Allergies Allergy/AdvReac Type Severity Reaction Status Date / Time Penicillins Allergy Unknown Verified 04/05/22 00:59 OTC nasal sprays AdvReac Respiratory Uncoded 04/05/22 00:59 MEDICATIONS Ambulatory Orders Medication Instructions Recorded Confirmed albuterol sulfate 90 mcg/actuation 2 puff inhalation Q 4H PRN 02/08/22 01/21/25 breath activated powder Shortness Of Air/Wheezing inhaler,sensor (Proair Digihaler) multivitamin with folic acid 400 1 ea PO DAILY 2 01/21/25 mcg tablet (Thera) tiotropium bromide 18 mcg capsule 18 mcg inhalation DA RAY 02/08/22 01/21/25 with inhalation device (Spiriva with HandiHaler) metoprolol succinate 100 mg 100 mg PO BID 01/21/2504/05 tablet,extended release 24 hr tolterodine 4 mg capsule,extended 4 mg PO DAILY 01/21/25 release 24 hr furosemide 20 mg tablet (Lasix) 20 mg PO DAILY #30 tab s 01/23/25 spironolactone 50 mg tablet 50 mg PO DAILY #30 tabs PHYSICAL EXAM AT DISCHARGE Vital Signs: Vital Signs x48h Temp Pulse Resp BP Pulse Ox O2 Flow Rate 01/23/25 14:15 36.8 C 102 H 24 120/77 94 94 01/23/25 14:00 36.8 C 102 H 20 120/77 94 3 LABS 01/23/25 08:08 01/23/25 08:08 FOLLOW UP Follow Up: PCP for BMP and weight log check within 1 to 2 weeks TIME SPENT Time Spent in Discharge (Minutes): 40 Discharge Plan Discharge Patient Disposition: 01 Home, Self Care Condition: Stable Medically Cleared Date:: 01/23/25 Prescriptions: New furosemide [Lasix] 20 mg tablet 20 mg PO DAILY Qty: 30 2RF spironolactone 50 mg tablet 50 mg PO DAILY Qty: 30 2RF Continued tiotropium bromide [Spiriva with HandiHaler] 18 MCG capsule, w/inhalation device 18 mcg inhalation DAILY Proair Digihaler 90 MCG aero powdr breath act w/sensor 2 puff inhalation Q4H PRN (Reason: Shortness Of Air/Wheezing) multivitamin with folic acid [Thera] 1 TAB tablet 1 ea PO DAILY tolterodine 4 mg capsule,extended release 24hr 4 mg PO DAILY metoprolol succinate 100 mg tablet extended release 24 hr 100 mg PO BID Patient Comments: TAKE 1 TABLET BY MOUTH TWICE DAILY FOR HEART RATE Discontinued potassium chloride 10 mEq capsule, extended release 10 meq PO DAILY Patient Comments: TAKE 1 CAPSULE BY MOUTH DAILY Activity Restrictions: Activity as Tolerated Diet: Cardiac Health Concerns: You were admitted because of increased need for oxygen in the setting of worsened fluid retention from your heart failure diagnosis. In order for you to avoid further hospitalization, it is important for you to start taking your water pills again. I have prescribed 2 water pills and I encourage you to take them daily. You need to follow-up with your primary care doctor in the next 1 to 2 weeks for evaluation of your kidney function and electrolytes on these medications. Weigh yourself daily on your scale, and keep track of this in a log. If your weight is going up, please reach out to your doctor before your next appointment. You may benefit from following up with your benzene washer operator for further optimization of your medications for your heart failure and atrial fibrillation. Print Language: Citizen Of [place] Patient Instructions: Heart Failure Meds, Heart Failure Make Changes Diet, Heart Failure Dc Follow-up Care: KERRIE ALVARADO DO [Physician No Access, Family Practice] Referral Note: Follow up in 1-2 weeks Vitals documented within 30 minutes of discharge?: Yes"
[2025-01-23 14:31] VITALS: BP 120/77; TEMP 98.3; O2SAT 94
== END 2025-01-23 14:25 | disposition home or self-care (01) | DRG 291 ==
LOC: ED 22:36 → SUATTDRO 01-21 05:21 → ICU 01-21 05:21
PROVIDERS: ADMIT Internal Medicine; ATTEND Student in an Organized Health Care Education/Training Program